=== PATIENT | male | born 1945 | race African-American/Black ===

== ENCOUNTER 2016-10-16 10:01 | Day surgery (SDC) | payer OTHER, BC ==
[2016-10-11 17:08] VITALS: BMI 28.8
[2016-10-16 10:23] LABS: URINE APPEARANCE CLEAR; URINE BILIRUBIN NEGATIVE (NEGATIVE); URINE BLOOD NEGATIVE (NEGATIVE); URINE COLOR LTYELLOW; URINE GLUCOSE (UA) NEGATIVE (NEGATIVE); URINE KETONE NEGATIVE (NEGATIVE); URINE LEUK ESTERASE NEGATIVE (NEGATIVE); URINE NITRITE NEGATIVE (NEGATIVE); URINE PROTEIN NEGATIVE (NEGATIVE); URINE UROBILINOGEN NEGATIVE E.U./dl (0.2-1.0)
[2016-10-16] MEDS ORDERED: LIDOCAINE HCL 1%, 10 MG/ML (20ML VIAL) ONE ×2 (11:59→12:12)
[2016-10-16] MEDS ORDERED: BUPIVACAINE HCL/PF 0.5% (5MG/ML) 10 ML VIAL ONE ×2 (11:59→12:12)
--- NOTE | 2016-10-16 12:03 | HP ---
Satellite [facility] - Chief Complaint Chief Complaint: right hand and elbow pain - Past Medical History Allergies/Adverse Reactions: Allergies Allergy/AdvReac Type Severity Reaction Status Date / Time No Known Drug Allergies Allergy Verified 10/16/16 11:16 Cardiovascular: Yes: HTN Rheumatology: Yes: Gout - Current Medications Current Medications: Medication Instructions Recorded Celecoxib [Celebrex] 200 mg PO DAILY 04/14/12 Valsartan/Hydrochlorothiazide 1 combo PO DAILY 11/23/13 [Diovan Hct 320-25 mg Tablet] Naproxen Sodium [Aleve] 220 mg PO BID PRN #0 11/24/13 Aspirin [ASA -] 81 mg PO DAILY 05/23/16 Cyanocobalamin [Vitamin B12 -] 1,000 mcg PO DAILY 05/23/16 Febuxostat [Uloric -] 40 mg PO DAILY 05/23/16 Gabapentin [Neurontin] 300 mg PO QID 05/23/16 Hydromorphone [Dilaudid -] 2 mg PO TID 05/23/16 Iron 28 mg PO DAILY 05/23/16 Methotrexate [Mexate -] 5 mg PO ASDIR 05/23/16 Metoprolol Succinate [Toprol XL -] 50 mg PO DAILY 05/23/16 Montelukast Na [Singulair -] 10 mg PO HS 05/23/16 Omeprazole [Prilosec] 40 mg PO DAILY 05/23/16 Oxycodone HCl [Oxycodone HCl ER] 10 mg PO BID 05/23/16 Zolpidem Tartrate [Ambien] 10 mg PO HS 05/23/16 Satellite Physical Exam - Physical Examination Vital Signs: Vital Signs Period Temp Pulse Resp BP Sys/Dyson Pulse Ox Last 24 Hr 97.5 F 84 20 113/65 98 General Appearance: Well Nourished, Well Developed, Alert & Oriented x3 ENT: Clear Lung: Normal air movement Heart: Regular rate & rhythm Extremities: Other (right hand/elbow- +tinels, phalens EMG + cts, cubital tunnel syndrome) Neurological: Intact, Alert, Oriented Satellite Impression/Plan - Impression/Plan Impression: right cts, cubital tunnel syndrome Operative Procedure: right ctr, ulna nerve transposition Date to be Performed: 10/16/16
[2016-10-16] MEDS ORDERED: MIDAZOLAM HCL 2 MG/2 ML SINGLE DOSE VIAL ONE (13:03)
[2016-10-16] MEDS ORDERED: PROPOFOL 20 ML ONE (13:34)
[2016-10-16] MEDS ORDERED: ceFAZolin SODIUM 1 GM VIAL IVPB ONE (13:35)
[2016-10-16] MEDS ORDERED: ceFAZolin SODIUM 1 GM VIAL ONE (13:39)
[2016-10-16] MEDS ORDERED: LIDOCAINE HCL 1%, 10 MG/ML (20ML VIAL) IJ ONE (13:53)
[2016-10-16] MEDS ORDERED: BUPIVACAINE HCL/PF 0.5% (5MG/ML) 10 ML VIAL IJ ONE (13:53)
[2016-10-16] MEDS ORDERED: ePHEDrine SULFATE 50 MG/1 ML AMPULE ONE (13:55)
[2016-10-16] MEDS ORDERED: DEXAMETHASONE SOD PHOSPHATE 4 MG/1 ML VIAL ONE (14:18)
[2016-10-16] MEDS ORDERED: KETOROLAC TROMETHAMINE 30 MG/1 ML VIAL ONE (14:18)
--- NOTE | 2016-10-16 15:00 | OP ---
Operative Note - Note: Operative Date: 10/16/16 Pre-Operative Diagnosis: right Cubital tunnel syndrome and CTS Operation: right subcutaneous ulnar nerve transposition, CTR, tenosynovectomy Post-Operative Diagnosis: Same as Pre-op Surgeon: Juan Manuel Carver Anesthesiologist/COTA: Paris Richards Anesthesia: General, Local Estimated Blood Loss (mls): 0 Blood Volume Replaced (mls): 0 Fluid Volume Replaced (mls): 1,000 Operative Report Dictated: Yes
[2016-10-16] MEDS ORDERED: oxyCODONE HCL 5 MG TABLET PO PRN (15:59)
[2016-10-16] MEDS ORDERED: ONDANSETRON 4 MG/2 ML VIAL IVPUSH PRN (15:59)
[2016-10-16] MEDS ORDERED: LACTATED RINGERS SOLUTION 1,000 ML IV SCH (16:00)
[2016-10-16 16:41] VITALS: TEMP 97.9
[2016-10-16 17:36] VITALS: BP 110/60; PULSE 85
--- NOTE | 2016-10-31 21:29 | SPEC ---
DATE OF OPERATION: 10/16/2016 PROCEDURE: Right subcutaneous ulnar nerve transposition. PREOPERATIVE DIAGNOSIS: The patient is a 71-year-old male with a preoperative diagnosis of right cubital tunnel syndrome PROCEDURE: After understanding the potential risks, complications, alternatives, benefits to surgery, risks of nonsurgical treatment, patient elected to undergo the procedure and understands that we are moving the nerve. He may not get complete relief of his symptoms. He may have a continuation of the numbness/tingling, pins and needles sensation. He understands this and other potential risks, which were discussed and has elected to go forward with surgery. The patient was brought to the operating room and peripheral IV placed. IV sedation given, 1 g of IV Ancef was given. MAC anesthesia was induced. He was placed into the supine position. The right upper extremity was prepped and draped in a sterile fashion. Elevated and exsanguinated with an Esmarch bandage, and tourniquet inflated to 250 mmHg. A curvilinear incision was marked out and made over the medial epicondyle in the area of the cubital tunnel. A subcutaneous incision was made with a No. 15 scalpel blade. Subcutaneous hemostasis was achieved with bipolar cautery. Dissection was done with the Littler scissors down to the cubital tunnel. Great care was taken to preserve all crossing neurovascular structures. I was able to identify the ulnar nerve in a more proximal position. Circumferential dissection was done, and a 0.5 inch Dee drain with irrigation for lubrication was passed around and for identification and retraction. Army-Stephenson retractors were used for better visualization proximally. The ulnar nerve was released, going more proximally, including the medial head of the triceps. I then used my index finger to do blunt dissection in a circumferential fashion around the ulnar nerve until there were no points of compression. The medial intramuscular septum was directly visualized and a portion of it cut, as not to be a point of compression. Next, our attention turned to the cubital tunnel. With very careful dissection, the cubital tunnel was opened up, the ulnar nerve protected. All small branches protected. The release continued through Carvajal ligament through the two heads of the flexor carpi ulnaris (FCU) and into the muscle itself. Again, I used my index finger for gentle circumferential dissection around the ulnar nerve, but again, trying to preserve all neurovascular branches. I then was able to transpose the ulnar nerve in an anterior direction anterior to the axial rotation of the medial epicondyle. I was able to move quite easily through an elbow flexion and extension of range of motion, and there were no points of compression. Therefore, the area was copiously irrigated and washed out. I then tacked down the subcutaneous flap including the adipose tissue to the medial epicondyle and to the adipose tissue on the other side of the incision with 2-0 Vicryl sutures. It held the ulnar nerve in its new position, and the ulnar nerve was not bound down in any location. Closure was done with 4-0 undyed Vicryl in the deep dermal layer, and final skin reapproximation was done with a running subcuticular 4-0 Biosyn stitch. The area was then washed and dried, covered with Steri-Strips, 4x4 gauze, Webril, and an ORTHO-GLASS posterior fiberglass splint was applied, wrapped with a Kade and Polo bandages. Then the tourniquet was taken down after number of minutes. Genesis [id number]
== END 2016-10-16 17:30 | disposition home or self-care (01) ==
LOC: JASU-SURG 10:01
PROVIDERS: ATTEND Orthopaedic Surgery
PROC: 0LB50ZZ Excision of Right Lower Arm and Wrist Tendon, Open Approach (ICD-10-PCS; 2016-10-16)
PROC: 01S40ZZ Reposition Ulnar Nerve, Open Approach (ICD-10-PCS; principal; 2016-10-16 12:00)
PROC: 01N50ZZ Release Median Nerve, Open Approach (ICD-10-PCS; 2016-10-16 12:00)
DX: G56.01 Carpal tunnel syndrome, right upper limb (principal); G56.21 Lesion of ulnar nerve, right upper limb; M65.831 Other synovitis and tenosynovitis, right forearm
CPT/HCPCS: 81003; 94760

== ENCOUNTER 2016-11-06 05:00 | Day surgery (SDC) | payer OTHER, BC ==
[2016-11-05 10:54] VITALS: BMI 28.8
[2016-11-06] MEDS ORDERED: methylPREDNISolone ACET (DEPO) 80 MG/1 ML VIAL ONE (07:25)
[2016-11-06] MEDS ORDERED: BUPIVACAINE HCL/PF 0.25% (2.5MG/ML) 10 ML VIAL ONE (07:25)
[2016-11-06] MEDS ORDERED: PROPOFOL 20 ML ONE ×2 (07:27→08:05)
[2016-11-06] MEDS ORDERED: SUCCINYLCHOLINE CHLORIDE 200 MG/10 ML VIAL ONE (07:27)
[2016-11-06] MEDS ORDERED: LIDOCAINE HCL/PF 2% SDV 5ML VIAL ONE (07:28)
[2016-11-06] MEDS ORDERED: LIDOCAINE HCL 1%, 10 MG/ML (50 mL VIAL) IJ ONE ×2 (08:00→08:06)
[2016-11-06] MEDS ORDERED: BUPIVACAINE HCL/PF 0.25% (2.5MG/ML) 10 ML VIAL IJ ONE ×2 (08:01→08:10)
[2016-11-06] MEDS ORDERED: methylPREDNISolone ACET (DEPO) 80 MG/1 ML VIAL IJ ONE ×2 (08:01→08:10)
[2016-11-06 10:19] VITALS: BP 115/61; PULSE 74; TEMP 97.4
--- NOTE | 2016-11-06 17:13 | OP ---
DATE OF OPERATION: 11/06/2016 PREOPERATIVE DIAGNOSIS: 1. Back pain, lumbar radiculopathy. 2. History of multilevel lumbar fusion. 3. History of cervical fusion. 4. Recent right upper extremity surgical procedure. POSTOPERATIVE DIAGNOSIS: 1. Back pain, lumbar radiculopathy. 2. History of multilevel lumbar fusion. 3. History of cervical fusion. 4. Recent right upper extremity surgical procedure. ATTENDING SURGEON: Hima Wharton M.D. PROCEDURE: 1. L5-S1 epidural steroid injection. 2. Intraoperative fluoroscopy. ANESTHESIA: Local with IV sedation. ANESTHESIOLOGIST: Paris Richards CRNA INDICATION: The patient is a 71-year-old male with back pain, lumbar radiculopathy, has previously undergone multiple lumbar surgeries and now complains of persistent lower back pain, lumbar radiculopathy. Has developed intractable symptoms of bilateral legs and is here for the first epidural steroid injection of the year. The risks of the procedure include but not limited to bleeding, infection, spinal headache, and neurological injury. The patient understands indication for the procedure, the procedure in detail, and the risks and benefits and alternatives to the treatment and his lumbar condition, and wished to proceed. No guarantee is given for favorable outcome. PROCEDURE IN DETAIL: The patient was taken to then operating room. He was placed in a prone position with the pillow under his hips, arms were placed on the side, taking care not to disrupt his recent right elbow incision. Lumbar region cleaned with alcohol and prepped with Betadine. A skin wheal was raised with 5 mL 1% Xylocaine and 20 degree spinal needle was inserted under AP and lateral fluoroscopic guidance, from left sided approach to the L5-S1. Needle moved cephalad from the top of the sacrum. Loss of resistance technique was utilized, and there was no CSF or blood backflow. Fairly dense fibrosis was encountered. 80 mg of Depo-Medrol and 1 mL of 0.25% Marcaine was injected. The needle with withdrawn, pressure was applied. The patient tolerated the procedure well and was returned back into the supine position, once again taking care to logroll him without disturbing his right elbow incision. Patient was moving bilateral lower extremities as he did preoperatively. Normal timeout procedure was followed. HIMA WHARTON M.D. ERNESTINE/[id number] MTDD
== END 2016-11-06 09:40 | disposition home or self-care (01) ==
LOC: JASU-SURG 05:00
PROVIDERS: ATTEND Neurological Surgery
PROC: 3E0S3BZ Introduction of Anesthetic Agent into Epidural Space, Percutaneous Approach (ICD-10-PCS; 2016-11-06)
PROC: 3E0S33Z Introduction of Anti-inflammatory into Epidural Space, Percutaneous Approach (ICD-10-PCS; principal; 2016-11-06 08:00)
DX: M54.16 Radiculopathy, lumbar region (principal); Z98.1 Arthrodesis status; M54.89 Other dorsalgia
CPT/HCPCS: 76000-TC

== ENCOUNTER 2017-03-08 08:39 | Emergency (ER) | payer OTHER, BC ==
[2017-03-08 08:58] VITALS: TEMP 98; BMI 28.2
--- NOTE | 2017-03-08 09:21 | PDOC ---
History of Present Illness - General Chief Complaint: Pain Stated Complaint: FOOT PAIN Time Seen by Provider: 03/08/17 08:55 History Source: Patient, Family () Exam Limitations: No Limitations - History of Present Illness Initial Comments: 03/08/17 09:20 Patient is a 72-year-old male history of hypertension, peripheral neuropathy, right ankle deformity with surgical repair 6 months prior, chronic pain. Patient presents via ambulance for evaluation of right ankle pain which is "severe" , 10 out of 10. Patient is crying. Ankle is visibly deformed at bedside states that patient is being followed by Dr. Buenrostro at [facility] repair was performed 6 months ago however ankle has still been deformed within the last 24 hours patient with severe pain has been taking morphine and Dilaudid, pain is worse. Past Medical History:See above Allergies: No known allergies Medications: see medication list Family History: Non-contributory Social History: Denies smoking, alcohol use, or IVDU Review of Systems GENERAL/CONSTITUTIONAL: No fever or chills. No weakness. No weight change. HEAD, EYES, EARS, NOSE AND THROAT: No change in vision. No ear pain or discharge. No sore throat. CARDIOVASCULAR: No chest pain or shortness of breath. RESPIRATORY: No cough, wheezing, or hemoptysis. GASTROINTESTINAL: No nausea, vomiting, diarrhea or constipation. No rectal bleeding. GENITOURINARY: No dysuria, frequency, or change in urination. MUSCULOSKELETAL: Right ankle pain with visible deformity, patient reports chronic back pain. SKIN AND BREASTS: No rash or easy bruising. No bruising, no erythema, edema noted to right ankle medial and laterally NEUROLOGIC: No headache, vertigo, loss of consciousness, or loss of sensation. PSYCHIATRIC: Anxious Physical Exam: GENERAL: The patient is awake, alert, and fully oriented, in no acute distress. EYES: Pupils equal, round and reactive to light, extraocular movements intact, sclera anicteric, conjunctiva clear. ENT: Ears normal, nares patent, oropharynx clear without exudates. Moist mucous membranes. No uvula deviation NECK: Normal range of motion, supple without lymphadenopathy, JVD, or masses. LUNGS: Breath sounds equal, clear to auscultation bilaterally. No wheezes, and no crackles. HEART: Regular rate and rhythm, normal S1 and S2 without murmur, rub or gallop. ABDOMEN: Soft, nontender, normoactive bowel sounds. No guarding, no rebound. No masses. No bruising or abrasions MUSCULOSKELETAL: Normal range of motion, no edema. No clubbing or cyanosis. No cords, erythema, or tenderness. Right ankle edema, no erythema, deformity medially and laterally. NEUROLOGICAL: Cranial nerves II through XII grossly intact. Normal speech, normal gait. SKIN: Warm, Dry, normal turgor, no rashes or lesions noted. Edema with deformity to generalized ankle, no bruising, no erythema. No warmth. 03/08/17 09:22 Past History - Past Medical History Allergies/Adverse Reactions: Allergies Allergy/AdvReac Type Severity Reaction Status Date / Time No Known Drug Allergies Allergy Verified 03/08/17 08:49 Home Medications: Ambulatory Orders Celecoxib [Celebrex] 200 mg PO DAILY 04/14/12 Valsartan/Hydrochlorothiazide [Diovan Hct 320-25 mg Tablet] 1 combo PO DAILY 08/26 Naproxen Sodium [Aleve] 220 mg PO BID PRN #0 11/24/13 Aspirin [ASA -] 81 mg PO DAILY 05/23/16 Cyanocobalamin [Vitamin B12 -] 1,000 mcg PO DAILY 05/23/16 Febuxostat [Uloric -] 40 mg PO DAILY 05/23/16 Gabapentin [Neurontin] 300 mg PO QID 05/23/16 Methotrexate [Mexate -] 5 mg PO ASDIR 05/23/16 Metoprolol Succinate [Toprol XL -] 50 mg PO DAILY 05/23/16 Montelukast Na [Singulair -] 10 mg PO HS 05/23/16 Omeprazole [Prilosec] 40 mg PO DAILY 05/23/16 Zolpidem Tartrate [Ambien] 10 mg PO HS 05/23/16 Hydromorphone [Dilaudid -] 4 mg PO TID #15 cap MDD 3 03/08/17 Morphine Sulfate 15 mg PO BID 03/08/17 Anemia: No Asthma: No Cancer: Yes (HX OF PROSTATE) Cardiac Disorders: No CVA: No COPD: No CHF: No Dementia: No Diabetes: No GI Disorders: No Disorders: No HTN: Yes Hypercholesterolemia: Yes Liver Disease: No Seizures: No Thyroid Disease: No - Surgical History Abdominal Surgery: No Appendectomy: No Cardiac Surgery: No Cholecystectomy: No Lung Surgery: No Neurologic Surgery: No Orthopedic Surgery: Yes (ANKLE SX, 3 BACK , CERVICAL SPINE X3) - Psycho/Social/Smoking Cessation Hx Suicidal Ideation: No Smoking History: Never smoked Have you smoked in the past 12 months: No Information on smoking cessation initiated: No Hx Alcohol Use: Yes (4 beers a day) Drug/Substance Use Hx: No Substance Use Type: None Hx Substance Use Treatment: No *Physical Exam - Vital Signs Last Vital Signs Temp Pulse Resp BP Pulse Ox 98 F 72 18 126/76 99 03/08/17 08:47 03/08/17 08:47 03/08/17 08:47 03/08/17 08:47 03/08/17 08:47 ED Treatment Course - LABORATORY CBC & Chemistry Diagram: 03/08/17 10:28 03/08/17 10:28 - RADIOLOGY Radiology Studies Ordered: Category Date Time Status ANKLE & FOOT-RIGHT* [RAD] Stat Radiology 03/08/17 09:17 Ordered Medical Decision Making - Medical Decision Making 03/08/17 09:27 A/P: Patient with chronic right ankle deformity, pain worsened in last 24 hours. Not controlled with Dilaudid or morphine. Patient states pain is uncontrolled. Crying. Agitated. Patient unable to bear weight. Patient sent to main emergency department for pain management. By mouth medication unable to resolve symptoms. Patient sent to x-ray for evaluation prior to transfer. Report given to Genesis and Valerie LOVE. *DC/Admit/Observation/Transfer Diagnosis at time of Disposition: Ankle and foot joint derangement - Prescriptions Prescriptions: Hydromorphone [Dilaudid -] 4 mg PO TID #15 cap MDD 3 - Referrals Referrals: Leonard Lester MD [Primary Care Provider] - - Patient Instructions Printed Discharge Instructions: DI for Ankle Pain Additional Instructions: follow up with Dr Buenrostro, call to schedule at 9:30 AM on friday , 03/12/17. you should bring the disc with you to your apppointment. return for any fever chills. or any concerns. take dilaudid 4 mg every 8 hours as needed for pain. you can also take motrin 400 mg every 8 hours as needed for pain.
[2017-03-08] MEDS ORDERED: HYDROmorphone HCL CARPU-JECT 1 MG/1 ML DISP.SYRIN IVPUSH ONE (10:09)
[2017-03-08] MEDS ORDERED: HYDROmorphone HCL CARPU-JECT 1 MG/1 ML DISP.SYRIN ONE (10:22)
[2017-03-08 10:50] LABS: BASOPHIL 0.4 % (0-2.0); EOSINOPHIL 5.3 % (0-4.5); MCH 34.1 pg (25.7-33.7); MCHC 33.7 g/dl (32.0-35.9); MEAN CELL VOLUME 101.1 fl (80-96); MEAN PLT VOLUME 6.8 fl (7.5-11.1); NEUTROPHILS 65.2 % (42.8-82.8); PLATELET COUNT 385 K/MM3 (134-434); RDW 14.5 % (11.9-15.9); WHITE BLOOD COUNT 10.2 K/mm3 (4.0-10.0)
[2017-03-08 11:09] LABS: ALBUMIN 3.9 g/dl (3.4-5.0); ANION GAP 10 (8-16); CO2 26 mmol/L (21-32); COCKROFT - GAULT 94.2; GLUCOSE,RANDOM 87 mg/dL (74-106); SGOT/AST 29 U/L (15-37); SGPT/ALT 26 U/L (12-78)
[2017-03-08 11:11] LABS: ALK PHOS 95 U/L (45-117); BILIRUBIN,TOTAL 0.9 mg/dL (0.2-1.0); TOT PROT 6.2 g/dl (6.4-8.2)
--- NOTE | 2017-03-08 12:01 | PDOC ---
*Physical Exam - Vital Signs Last Vital Signs Temp Pulse Resp BP Pulse Ox 98 F 72 18 126/76 99 03/08/17 08:47 03/08/17 08:47 03/08/17 08:47 03/08/17 08:47 03/08/17 08:47 - Physical Exam Comments: 03/08/17 12:01 The patient is a 72 year old male with a significant past medical history of chronic back pain followed by pain management, and right ankle surgery for chronic right ankle deformity (6 months ago), presenting to the Emergency Department with right ankle swelling and pain. The patient reports that he has surgery on his right ankle by Dr. Buenrostro. He admits that he is prescribed Morphine by his pain management doctor for his chronic back pain as well as ankle pain. He reports that the swelling and pain in the ankle has increased over the past week, to the point where he could not tolerate it and came into the ED. He describes the pain as worst in the ankle and radiating up to the mid calf. He admits the swelling to the right leg is worse than usual. He ambulates with a walking boot. His next follow up appointment with his surgeon is in two weeks. The patient denies fever, or chills. Denies history of blood clot. Denies recent injury. Patient denies chest pain, palpitations, or shortness of breath. Bone and joint doctor: Dr. Castillo at [facility] Orthopedic surgeon: Dr. Buenrostro Pain management: Dr. Pereira CONSTITUTIONAL: Absent: fever, chills, diaphoresis, generalized weakness, malaise, loss of appetite HEENT: Absent: rhinorrhea, nasal congestion, throat pain, throat swelling, difficulty swallowing, mouth swelling, ear pain, eye pain, visual Changes CARDIOVASCULAR: Absent: chest pain, syncope, palpitations, irregular heart rate, lightheadedness , peripheral edema RESPIRATORY: Absent: cough, shortness of breath, dyspnea with exertion, orthopnea, wheezing, stridor, hemoptysis GASTROINTESTINAL: Absent: abdominal pain, abdominal distension, nausea, vomiting, diarrhea, constipation, melena, hematochezia GENITOURINARY: Absent: dysuria, frequency, urgency, hesitancy, hematuria, flank pain, genital pain MUSCULOSKELETAL: Present: + right ankle swelling, + right ankle pain, + back pain (chronic) Absent: myalgia SKIN: Absent: rash, itching, pallor HEMATOLOGIC/IMMUNOLOGIC: Absent: easy bleeding, easy bruising, lymphadenopathy, frequent infections ENDOCRINE: Absent: unexplained weight gain, unexplained weight loss, heat intolerance, cold intolerance NEUROLOGIC: Absent: headache, focal weakness or paresthesias, dizziness, unsteady gait, seizure, mental status changes, bladder or bowel incontinence PSYCHIATRIC: Absent: anxiety, depression, suicidal or homicidal ideation, hallucinations. GENERAL: Well developed, well nourished. Awake and alert. In no acute distress. HEENT: Normocephalic, atraumatic. PERRLA, EOMI. No conjunctival pallor. Sclera are non- icteric. Moist mucous membranes. Oropharynx is clear. NECK: Supple. Full ROM. No JVD. Carotid pulses 2+ and symmetric, without bruits. No thyromegaly. No lymphadenopathy. CARDIOVASCULAR: Regular rate and rhythm. No murmurs, rubs, or gallops. Distal pulses are 2+ and symmetric. PULMONARY: No evidence of respiratory distress. Lungs clear to auscultation bilaterally. No wheezing, rales or rhonchi. ABDOMINAL: Soft. Non-tender. Non-distended. No rebound or guarding. No organomegaly. Normoactive bowel sounds. MUSCULOSKELETAL Normal range of motion at upper extremities and left lower extremity. EXTREMITIES: Right ankle swelling noted. Decreased range of motion. 2+ dp and pt pulses. Knee and hip nontender. No cyanosis. No clubbing. No calf tenderness. SKIN: Warm and dry. Normal capillary refill. No rashes. No jaundice. NEUROLOGICAL: Alert, awake, appropriate. Cranial nerves 2-12 intact. No deficits to light touch and temperature in face, upper extremities and lower extremities. No motor deficits in the in face, upper extremities and lower extremities. Normoreflexic in the upper and lower extremities. Normal speech. PSYCHIATRIC: Cooperative. Good eye contact. Appropriate mood and affect. <Charmaine Harris - Last Filed: 03/08/17 12:55> - Vital Signs Last Vital Signs Temp Pulse Resp BP Pulse Ox 98 F 72 18 126/76 99 03/08/17 08:47 03/08/17 08:47 03/08/17 08:47 03/08/17 08:47 03/08/17 08:47 <Cristela Deleon - Last Filed: 03/08/17 13:21> ED Treatment Course - LABORATORY CBC & Chemistry Diagram: 03/08/17 10:28 03/08/17 10:28 - ADDITIONAL ORDERS Additional order review: Laboratory Results 03/08/17 10:28 Sodium 138 Potassium 4.5 Chloride 102 Carbon Dioxide 26 Anion Gap 10 BUN 24 H Creatinine 1.0 D Creat Clearance w eGFR > 60 Random Glucose 87 Calcium 10.0 D Total Bilirubin 0.9 D AST 29 D ALT 26 Alkaline Phosphatase 95 D C-Reactive Protein 1.0 H Total Protein 6.2 L D Albumin 3.9 D 03/08/17 10:28 RBC 3.61 L MCV 101.1 H MCHC 33.7 RDW 14.5 MPV 6.8 L Neutrophils % 65.2 Lymphocytes % 19.2 D Monocytes % 9.9 Eosinophils % 5.3 H D Basophils % 0.4 - RADIOLOGY Radiograph Interpretation: 03/08/17 12:55 Ankle XRay As reviewed by Dr. Mando Jimenez IMPRESSION: Marked deformity ankle joint. 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 - Medications Given in the ED: ED Medications Discontinued Medications Generic Name Dose Route Start Last Admin Trade Name Freq PRN Reason Stop Dose Admin Hydromorphone HCl 1 mg 03/08/17 10:09 03/08/17 10:32 Dilaudid Injection - IVPUSH 03/08/17 10:10 1 mg ONCE ONE Administration <Charmaine Harris - Last Filed: 03/08/17 12:55> - LABORATORY CBC & Chemistry Diagram: 03/08/17 10:28 03/08/17 10:28 - ADDITIONAL ORDERS Additional order review: Laboratory Results 03/08/17 10:28 Sodium 138 Potassium 4.5 Chloride 102 Carbon Dioxide 26 Anion Gap 10 BUN 24 H Creatinine 1.0 D Creat Clearance w eGFR > 60 Random Glucose 87 Calcium 10.0 D Total Bilirubin 0.9 D AST 29 D ALT 26 Alkaline Phosphatase 95 D C-Reactive Protein 1.0 H Total Protein 6.2 L D Albumin 3.9 D 03/08/17 10:28 RBC 3.61 L MCV 101.1 H MCHC 33.7 RDW 14.5 MPV 6.8 L Neutrophils % 65.2 Lymphocytes % 19.2 D Monocytes % 9.9 Eosinophils % 5.3 H D Basophils % 0.4 - RADIOLOGY Radiology Studies Ordered: Category Date Time Status DUPLEX VASCUL US-1 LEG [US] Stat Ultrasound 03/08/17 10:12 Ordered - Medications Given in the ED: ED Medications Discontinued Medications Generic Name Dose Route Start Last Admin Trade Name Sheri PRN Reason Stop Dose Admin Hydromorphone HCl 1 mg 03/08/17 10:09 03/08/17 10:32 Dilaudid Injection - IVPUSH 03/08/17 10:10 1 mg ONCE ONE Administration <Cristela Deleon - Last Filed: 03/08/17 13:21> Medical Decision Making - Medical Decision Making 03/08/17 12:17 Dr. Buenrostro was called at his office at 10:10. Awaiting call back. Dr. Buenrostro was called at his office at 10:47. Dr. Buenrostro returned call at 12:[address] Deleon about the patient's care. He would like to follow up on Friday. Dr. Pereira was called at her office at 11:19. Awaiting call back. Dr. Pereira was called at her cell at 11:40. Awaiting call back. <Charmaine Harris - Last Filed: 03/08/17 12:55> - Medical Decision Making 03/08/17 12:00 72yo male with h;o chornic right ankle deformity s/p repair surgery 6 mo ago, followe by pain management here with worsening pain right ankle swelling plan: us r/o dvt xray ankl labs r/o infection. 03/08/17 12:21 d/w Dr. Buenrostro. recommend splint and followup with him next week. told to call office 9:30 am following friday. elevate, crutches. and pain control. ESR 30 CRP 1. wbc normal. no fever or chills. joint no erythematous. pt pain controlled with dilaudid. 03/08/17 13:20 pt refuses splint. will wear his boot. encouraged to not bear weight has crutches. elevation to reduce swelling. given referral to our orthopedics for second opinion per request. <Cristela Deleon - Last Filed: 03/08/17 13:21> *DC/Admit/Observation/Transfer - Attestations Scribe Attestion: 03/08/17 12:01 Documentation prepared by Charmaine Harris, acting as biomedical engineering supervisor for Cristela Deleon MD. <Charmaine Harris - Last Filed: 03/08/17 12:55> - Discharge Dispostion Admit: No <Cristela Deleon - Last Filed: 03/08/17 13:21> Diagnosis at time of Disposition: Ankle and foot joint derangement - Prescriptions Prescriptions: Hydromorphone [Dilaudid -] 4 mg PO TID #15 cap MDD 3 - Referrals Referrals: Leonard Lester MD [Primary Care Provider] - - Patient Instructions Printed Discharge Instructions: DI for Ankle Pain Additional Instructions: follow up with Dr Buenrostro, call to schedule at 9:30 AM on friday , 03/12/17. you should bring the disc with you to your apppointment. return for any fever chills. or any concerns. take dilaudid 4 mg every 8 hours as needed for pain. you can also take motrin 400 mg every 8 hours as needed for pain.
[2017-03-08 12:06] LABS: ERYTHROCYTE SEDIMENTATION RATE 30 mm/hr (0-20)
[2017-03-08] MEDS ORDERED: KETOROLAC TROMETHAMINE 30 MG/1 ML VIAL IVPUSH ONE (12:44)
[2017-03-08] MEDS ORDERED: KETOROLAC TROMETHAMINE 30 MG/1 ML VIAL ONE (12:54)
[2017-03-08 13:22] VITALS: BP 129/79; PULSE 67
== END 2017-03-08 14:01 | disposition home or self-care (01) ==
LOC: JER 08:39 → JERFT 08:39 → JER 14:01
PROC: 3E033NZ Introduction of Analgesics, Hypnotics, Sedatives into Peripheral Vein, Percutaneous Approach (ICD-10-PCS; principal; 2017-03-08)
PROC: 3E0333Z Introduction of Anti-inflammatory into Peripheral Vein, Percutaneous Approach (ICD-10-PCS; 2017-03-08)
DX: M24.871 Other specific joint derangements of right ankle, not elsewhere classified (principal); I10 Essential (primary) hypertension; G62.9 Polyneuropathy, unspecified
CPT/HCPCS: 36415; 73610-TC-RT; 73630-TC-RT; 80053; 85025; 85651; 86140; 87040; 93971-TC; 96374; 96375; 99282-25

== ENCOUNTER 2017-04-03 13:47 | Inpatient (IN) | payer OTHER, BC ==
[~2017-04-03 13:47] MED LIST: NALOXONE HCL 0.4 MG/ML VIAL IVPUSH ONE
--- NOTE | 2017-04-03 14:02 | PDOC ---
History of Present Illness - General History Source: Patient Exam Limitations: Other - History of Present Illness Initial Comments: 04/03/17 14:14 The patient is a 72 year old male with a significant past medical history of hypertension, peripheral neuropathy, chronic right ankle deformity (multiple surgeries), and chronic back pain, brought by ambulance from pain management presenting to the Emergency Department found unresponsive at pain management. As per EMS, the patient was found unresponsive and diaphoretic at pain management, when 1.5mg of Narcan was administered. Patient was seen on arrival to ED, and was found hypertensive and temp of 95.9 rectally. The patient was confused, coughing, and shaking. History limited due to patients current symptoms. Social Hx: As per past records, no history of drug abuse. At pain management for chronic right ankle deformity. Surgical Hx: multiple surgeries to right ankle <Charmaine Harris - Last Filed: 04/03/17 17:35> <Khai Garcia - Last Filed: 04/03/17 17:42> - General Chief Complaint: Overdose Stated Complaint: UNRESPONSIVE Time Seen by Provider: 04/03/17 14:01 Past History <Charmaine Harris - Last Filed: 04/03/17 17:35> - Past Medical History Anemia: No Asthma: No Cancer: Yes (HX OF PROSTATE) Cardiac Disorders: No CVA: No COPD: No CHF: No Dementia: No Diabetes: No GI Disorders: No Disorders: No HTN: Yes Hypercholesterolemia: Yes Liver Disease: No Seizures: No Thyroid Disease: No - Surgical History Abdominal Surgery: No Appendectomy: No Cardiac Surgery: No Cholecystectomy: No Lung Surgery: No Neurologic Surgery: No Orthopedic Surgery: Yes (ANKLE SX, 3 BACK , CERVICAL SPINE X3) - Psycho/Social/Smoking Cessation Hx Suicidal Ideation: No Smoking History: Never smoked Have you smoked in the past 12 months: No Hx Alcohol Use: Yes (4 beers a day) Drug/Substance Use Hx: No Substance Use Type: None Hx Substance Use Treatment: No <Khai Garcia - Last Filed: 04/03/17 17:42> - Past Medical History Allergies/Adverse Reactions: Allergies Allergy/AdvReac Type Severity Reaction Status Date / Time No Known Drug Allergies Allergy Verified 04/03/17 13:50 Home Medications: Ambulatory Orders Celecoxib [Celebrex] 200 mg PO DAILY 04/14/12 Valsartan/Hydrochlorothiazide [Diovan Hct 320-25 mg Tablet] 1 combo PO DAILY 08/26 Naproxen Sodium [Aleve] 220 mg PO BID PRN #0 11/24/13 Aspirin [ASA -] 81 mg PO DAILY 05/23/16 Cyanocobalamin [Vitamin B12 -] 1,000 mcg PO DAILY 05/23/16 Febuxostat [Uloric -] 40 mg PO DAILY 05/23/16 Gabapentin [Neurontin] 300 mg PO QID 05/23/16 Methotrexate [Mexate -] 5 mg PO ASDIR 05/23/16 Metoprolol Succinate [Toprol XL -] 50 mg PO DAILY 05/23/16 Montelukast Na [Singulair -] 10 mg PO HS 05/23/16 Omeprazole [Prilosec] 40 mg PO DAILY 05/23/16 Zolpidem Tartrate [Ambien] 10 mg PO HS 05/23/16 Hydromorphone [Dilaudid -] 4 mg PO TID #15 cap MDD 3 03/08/17 Morphine Sulfate 15 mg PO BID 03/08/17 Review of Systems - Review of Systems Able to Perform ROS?: No <KimberlyCharmaine - Last Filed: 04/03/17 17:35> *Physical Exam - Vital Signs Last Vital Signs Temp Pulse Resp BP Pulse Ox 75 25 H 108/77 100 04/03/17 13:50 04/03/17 13:50 04/03/17 13:50 04/03/17 13:50 - Physical Exam Comments: 04/03/17 15:48 GENERAL: Rousable to loud voice and confused, oriented to place and person but not situation. HEAD: No signs of trauma EYES: PERRLA, EOMI, sclera anicteric, conjunctiva clear ENT: Auricles normal inspection, hearing grossly normal, nares patent, oropharynx clear without exudates. Moist mucosa NECK: Normal ROM, supple, no lymphadenopathy, JVD, or masses LUNGS: Noisy chest. Breath sounds equal, clear to auscultation bilaterally. No wheezes, and no crackles HEART: Regular rate and rhythm, normal S1 and S2, no murmurs, rubs or gallops ABDOMEN: Soft, nontender, normoactive bowel sounds. No guarding, no rebound. No masses EXTREMITIES: Deformity to right leg, in brace. Normal range of motion of other extremities, no edema. No clubbing or cyanosis. No cords, erythema NEUROLOGICAL: Cranial nerves II through XII grossly intact. SKIN: Warm, Dry, normal turgor, no rashes or lesions noted. <Charmaine Harris - Last Filed: 04/03/17 17:35> Heart Score/ECG Review #1 ECG reviewed & interpreted by me at: 14:45 (EKG reviewed by Dr. Garcia. IMPRESSION: Sinus rhythm with 1st degree AV block.) <Charmaine Harris - Last Filed: 04/03/17 17:35> ED Treatment Course - LABORATORY CBC & Chemistry Diagram: 04/03/17 14:21 04/03/17 14:30 - RADIOLOGY Radiograph Interpretation: 04/03/17 17:13 Chest XRay As reviewed by Dr. Mando De La Rosa IMPRESSION: Limited exam showing no acute intrathoracic abnormality. Head CT As reviewed by Dr. Cecil Harvey IMPRESSION: [id number] volume loss and chronic microvascular ischemic changes without evidence of acute intracranial pathology. Correlate clinically. Correlation with MRI would be helpful. Mild chronic sinusitis <Charmaine Harris - Last Filed: 04/03/17 17:35> - LABORATORY CBC & Chemistry Diagram: 04/03/17 14:21 04/03/17 14:30 <Khai Garcia - Last Filed: 04/03/17 17:42> Medical Decision Making - Critical Care Time Total Critical Care Time (minutes): 30 (r/o overdose, possible sepsis) Critical Care Statement: The care of this patient involved high complexity decision making to prevent further life threatening deterioration of the patient 's condition and/or to evalute & treat vital organ system(s) failure or risk of failure. - Medical Decision Making 04/03/17 14:15 Patient was seen on arrival, suspected overdose. Narcan administered, and overdose ruled out. Possible sepsis. 04/03/17 17:16 Dr. Kevin was called at her office at 5:15. Awaiting call back. 04/03/17 17:35 Dr. Kevin returned call at 5:[address] Garcia about the patient's care. <Charmaine Harris - Last Filed: 04/03/17 17:35> *DC/Admit/Observation/Transfer - Attestations Scribe Attestion: 04/03/17 14:16 Documentation prepared by Charmaine Harris, acting as remote medical coder for Khai Garcia DO. <Charmaine Harris - Last Filed: 04/03/17 17:35> - Discharge Dispostion Admit: Yes - Attestations Physician Attestion: 04/03/17 14:02 I, Dr. Khai Garcia, attest that this document has been prepared under my direction and personally reviewed by me in its entirety. I further attest, that it accurately reflects all work, treatment, procedures and medical decision -making performed by me. <Khai Garcia - Last Filed: 04/03/17 17:42> Diagnosis at time of Disposition: Sepsis Qualifiers: Sepsis type: sepsis due to unspecified organism Qualified Code(s): A41.9 - Sepsis, unspecified organism Altered mental status Qualifiers: Altered mental status type: transient alteration of awareness Qualified Code(s) : R40.4 - Transient alteration of awareness Urinary tract infection Qualifiers: Urinary tract infection type: site unspecified Hematuria presence: with hematuria Qualified Code(s): N39.0 - Urinary tract infection, site not specified ; R31.9 - Hematuria, unspecified - Discharge Dispostion Condition at time of disposition: Improved
[2017-04-03] MEDS ORDERED: NALOXONE HCL 0.4 MG/ML VIAL ONE (14:07)
[2017-04-03] MEDS ORDERED: SODIUM CHLORIDE 0.9% 1000 ML INFUS.BAG IV STA (14:11)
[2017-04-03] MEDS ORDERED: VANCOMYCIN 1 GRAM (PRE-DOCKED) 1,000 MG/250 ML BAG IVPB ONE (14:13)
[2017-04-03 14:33] LABS: ARTERIAL BLD GAS O2 SATURATION 97.1 % (90-98.9); ARTERIAL BLOOD GAS BASE EXCESS -3.6 meq/l (-2-2); ARTERIAL BLOOD GAS HCO3 20.9 meq/L (22-26); ARTERIAL BLOOD GAS PO2 89.1 mmHg (70-100); ARTERIAL BLOOD GAS pH 7.36 (7.35-7.45)
[2017-04-03 14:34] LABS: ALLENS TEST POSITIVE; ART PUNCT SITE LEFT RADIAL; LPM/O2% N; METHEMOGLOBIN 0.4 % (0.4-1.5); PT. ON O2? NO; TYPE OF O2 R/A
[2017-04-03] MEDS ORDERED: VANCOMYCIN 1 GRAM (PRE-DOCKED) 250 ML IVPB ONE (14:37)
[2017-04-03 14:42] LABS: URINE APPEARANCE SLCLOUDY; URINE BILIRUBIN NEGATIVE (NEGATIVE); URINE COLOR AMBER; URINE GLUCOSE (UA) NEGATIVE (NEGATIVE); URINE KETONE NEGATIVE (NEGATIVE); URINE NITRITE NEGATIVE (NEGATIVE); URINE UROBILINOGEN NEGATIVE E.U./dl (0.2-1.0)
[2017-04-03 14:43] LABS: BASOPHIL 0.4 % (0-2.0); EOSINOPHIL 3.4 % (0-4.5); MCH 34.5 pg (25.7-33.7); MCHC 33.5 g/dl (32.0-35.9); NEUTROPHILS 73.4 % (42.8-82.8); PLATELET COUNT 329 K/MM3 (134-434); RDW 13.2 % (11.9-15.9); WHITE BLOOD COUNT 11.5 K/mm3 (4.0-10.0)
[2017-04-03 14:53] LABS: URINE BLOOD 2+ (NEGATIVE); URINE LEUK ESTERASE 3+ (NEGATIVE); URINE PROTEIN 1+ (NEGATIVE)
[2017-04-03 15:04] LABS: INR 1.02 (0.82-1.09); PROTHROMBIN TIME (PATIENT) 11.2 SEC (9.98-11.88)
[2017-04-03 15:06] LABS: ALBUMIN 3.6 g/dl (3.4-5.0); ANION GAP 9 (8-16); CALCIUM 8.8 mg/dL (8.5-10.1); CO2 25 mmol/L (21-32); CREATININE 2.3 mg/dL (0.7-1.3); GLUCOSE,RANDOM 114 mg/dL (74-106); SGOT/AST 22 U/L (15-37); SGPT/ALT 21 U/L (12-78)
[2017-04-03 15:07] LABS: ACTIVATED PTT 28.7 SECONDS (26.9-34.4)
[2017-04-03 15:13] LABS: ALK PHOS 84 U/L (45-117); BILIRUBIN,TOTAL 0.6 mg/dL (0.2-1.0); THYROID STIMULATING HORMONE 3.11 uIU/ml (0.358-3.74); TOT PROT 5.8 g/dl (6.4-8.2); TROPONIN I < 0.02 ng/ml (0.00-0.05)
[2017-04-03] MEDS ORDERED: morphine CARPU-JECT 2 MG/1 ML DISP.SYRIN IVPUSH ONE (15:29)
[2017-04-03] MEDS ORDERED: morphine CARPU-JECT 2 MG/1 ML DISP.SYRIN ONE (15:30)
[2017-04-03 15:41] LABS: GRANULAR CASTS 16 /lpf; URINE HYALINE CAST 90 /lpf; URINE MUCUS FEW; URINE RBC 19 /hpf (0-3); URINE WBC 105 /hpf (3-5)
--- NOTE | 2017-04-03 15:48 | EKG ---
Test Reason : Blood Pressure : / mmHG Vent. Rate : 082 BPM Atrial Rate : 082 BPM P-R Int : 238 ms QRS Dur : 100 ms QT Int : 374 ms P-R-T Axes : 037 -02 001 degrees QTc Int : 436 ms POOR DATA QUALITY, INTERPRETATION MAY BE ADVERSELY AFFECTED SINUS RHYTHM WITH 1ST DEGREE A-V BLOCK OTHERWISE NORMAL ECG WHEN COMPARED WITH ECG OF 20-APR-2007 11:09, [facility] INTERVAL HAS INCREASED Confirmed by STEPH TREJO, JESUS ([id number]) on 04/03/2017 3:47:29 PM Referred By: Confirmed By:JESUS CHOI MD
[2017-04-03] MEDS ORDERED: PIPERACILLIN/TAZOB 3.375 GM/50 ML PRE-DOCKED IV ONE (17:13)
[2017-04-03] MEDS ORDERED: PIPERACILLIN/TAZOB 3.375 GM 50 ML IVPB ONE (17:13)
[2017-04-03 22:11] VITALS: BMI 28.8
[2017-04-03] MEDS: DEXTROSE 5%-0.45% SALINE 1,000 ML IV SCH ×2 (23:14→23:41)
[2017-04-03] MEDS: VALSARTAN 160 MG TABLET (UD) PO SCH (23:41)
[2017-04-03] MEDS: GABAPENTIN 300 MG CAPSULE (FP) PO SCH (23:41)
[2017-04-03] MEDS: METHOCARBAMOL 500 MG TABLET PO SCH (23:42)
[2017-04-03] MEDS: MONTELUKAST NA 10 MG TABLET PO SCH (23:42)
[2017-04-03] MEDS: KETOROLAC TROMETHAMINE 30 MG/1 ML VIAL IVPUSH SCH (23:43)
[2017-04-03] MEDS: ZOLPIDEM TARTRATE 5 MG TABLET PO PRN (23:44)
[2017-04-04] MEDS: KETOROLAC TROMETHAMINE 30 MG/1 ML VIAL IVPUSH SCH ×3 (06:40→21:44)
[2017-04-04 08:03] LABS: BASOPHIL 0.3 % (0-2.0); EOSINOPHIL 4.2 % (0-4.5); MCH 35.1 pg (25.7-33.7); MCHC 34.2 g/dl (32.0-35.9); MEAN CELL VOLUME 102.5 fl (80-96); MEAN PLT VOLUME 7.1 fl (7.5-11.1); NEUTROPHILS 74.1 % (42.8-82.8); PLATELET COUNT 315 K/MM3 (134-434); RDW 13.2 % (11.9-15.9); WHITE BLOOD COUNT 10.9 K/mm3 (4.0-10.0)
[2017-04-04 08:04] LABS: ALBUMIN 3.1 g/dl (3.4-5.0); ANION GAP 9 (8-16); CALCIUM 8.5 mg/dL (8.5-10.1); CO2 25 mmol/L (21-32); GLUCOSE,RANDOM 141 mg/dL (74-106)
[2017-04-04 08:08] LABS: ALK PHOS 76 U/L (45-117); BILIRUBIN,TOTAL 0.6 mg/dL (0.2-1.0); CREATININE 1.2 mg/dL (0.7-1.3); SGOT/AST 15 U/L (15-37); SGPT/ALT 18 U/L (12-78)
[2017-04-04] MEDS ORDERED: CEFTRIAXONE 1 GM in DEXTROSE 5%-WATER - 50 ML IVPB SCH (10:00)
[2017-04-04] MEDS ORDERED: METHOCARBAMOL 750 MG TABLET PO SCH (10:00)
[2017-04-04] MEDS ORDERED: METHOTREXATE 2.5 MG TABLET PO SCH (10:00)
[2017-04-04] MEDS ORDERED: VALSARTAN 160 MG TABLET (UD) PO SCH (10:00)
[2017-04-04] MEDS: FERROUS SO4 325 MG TABLET (FP) PO SCH (10:32)
[2017-04-04] MEDS: ASPIRIN 81 MG CHEWABLE TABLETS PO SCH (10:32)
[2017-04-04] MEDS: cefTRIAXone 1 GM/50 ML BAG (PRE-DOCKED) IVPB SCH (10:33)
[2017-04-04] MEDS: GABAPENTIN 300 MG CAPSULE (FP) PO SCH ×4 (10:33→21:44)
[2017-04-04] MEDS: HEPARIN NA (PORCINE) 5,000 UNITS/ML 1ML VIAL SQ SCH ×2 (10:33→21:44)
[2017-04-04] MEDS: CYANOCOBALAMIN 1,000 MCG TABLET (FP) PO SCH (10:33)
[2017-04-04] MEDS: VALSARTAN 160 MG TABLET (UD) PO SCH ×2 (14:13→21:44)
[2017-04-04] MEDS: METOPROLOL SUCCINATE 50 MG TAB.SR.24H (FP) PO SCH (14:15)
[2017-04-04] MEDS: METHOCARBAMOL 500 MG TABLET PO SCH ×2 (14:16→21:44)
[2017-04-04] MEDS: DEXTROSE 5%-0.45% SALINE 1,000 ML IV SCH (15:00)
--- NOTE | 2017-04-04 17:06 | CONSULT ---
Consult Consult Specialty:: infectious diseases Reason for Consultation:: r/o uti - History of Present Illness Chief Complaint: weakness and dizziness History of Present Illness: 72 year old male with a significant past medical history of hypertension, peripheral neuropathy, chronic right ankle deformity (multiple surgeries), and chronic back pain, brought by ambulance from pain management presenting to the Emergency Department found unresponsive at pain management. As per EMS, the patient was found unresponsive and diaphoretic at pain management, when 1.5mg of Narcan was administered. Patient was seen on arrival to ED, and was found hypertensive and temp of 95.9 rectally. The patient was confused, coughing, and shaking. History limited due to patients current symptoms. the above was the history on admission patient remembered a part of what had happened rest of the history taken from his charts he does say that he has penile prosthesis and some pain now he feels well and says he is improving - History Source History Provided By: Patient Limitations to Obtaining History: No Limitations - Past Medical History Cardio/Vascular: Yes: HTN Rheumatology: Yes: Gout - Alcohol/Substance Use Hx Alcohol Use: Yes (2 BEERS/DAY) History of Substance Use: reports: None - Smoking History Smoking history: Never smoked Have you smoked in the past 12 months: No - Social History ADL: Independent History of Recent Travel: No Home Medications - Allergies Allergies/Adverse Reactions: Allergies Allergy/AdvReac Type Severity Reaction Status Date / Time No Known Drug Allergies Allergy Verified 04/03/17 13:50 - Home Medications Home Medications: Ambulatory Orders Aspirin [Rachelle Chewable Aspirin] 81 mg PO DAILY 04/03/17 Celecoxib [Celebrex] 200 mg PO DAILY 04/03/17 Cyanocobalamin (Vitamin B-12) [B-12] 500 mcg PO DAILY 04/03/17 Febuxostat [Uloric -] 40 mg PO DAILY 04/03/17 Gabapentin 300 mg PO QID 04/03/17 Iron 28 mg PO DAILY 04/03/17 Methocarbamol 750 mg PO BID 04/03/17 Methotrexate Sodium [Methotrexate] 2.5 mg PO DAILY 04/03/17 Metoprolol Succinate [Toprol XL -] 50 mg PO DAILY 04/03/17 Montelukast Na [Singulair -] 10 mg PO HS 04/03/17 Omeprazole Magnesium [Prilosec] 10 mg PO DAILY 04/03/17 Valsartan [Diovan] 160 mg PO BID 04/03/17 Zolpidem Tartrate [Ambien] 10 mg PO DAILY 04/03/17 Amoxicillin/Potassium Clav [Augmentin 875-125 Tablet] 1 each PO BID #20 tablet 04/06/17 Review of Systems - Review of Systems Constitutional: reports: Weakness, Other Eyes: reports: No Symptoms HENT: reports: No Symptoms Neck: reports: No Symptoms Cardiovascular: reports: No Symptoms Respiratory: reports: No Symptoms Gastrointestinal: reports: No Symptoms Genitourinary: reports: No Symptoms Musculoskeletal: reports: No Symptoms Integumentary: reports: No Symptoms Neurological: reports: Change in LOC Endocrine: reports: No Symptoms Hematology/Lymphatic: reports: No Symptoms Psychiatric: reports: No Symptoms Physical Exam Vital Signs: Vital Signs Temperature 97.8 F 04/04/17 14:00 Pulse Rate 77 04/04/17 14:00 Respiratory Rate 20 04/04/17 14:00 Blood Pressure 90/51 04/04/17 14:00 O2 Sat by Pulse Oximetry (%) 96 04/04/17 12:22 Constitutional: Yes: Well Nourished, No Distress, Calm Eyes: Yes: Conjunctiva Clear Cardiovascular: Yes: Regular Rate and Rhythm Respiratory: Yes: Regular, CTA Bilaterally Gastrointestinal: Yes: Normal Bowel Sounds, Soft Musculoskeletal: Yes: WNL Extremities: Yes: WNL Neurological: Yes: Alert, Oriented Psychiatric: Yes: Alert, Oriented Labs: CBC, BMP 04/04/17 06:00 04/04/17 06:00 Imaging - Results Chest X-ray: Report Reviewed, Image Reviewed Cat Scan: Report Reviewed, Image Reviewed Assessment/Plan Problem List - Problems (1) UTI (urinary tract infection) Code(s): N39.0 - URINARY TRACT INFECTION, SITE NOT SPECIFIED Qualifiers: Urinary tract infection type: site unspecified Hematuria presence: with hematuria Qualified Code(s): N39.0 - Urinary tract infection, site not specified (2) Syncope Code(s): R55 - SYNCOPE AND COLLAPSE plan at the moment i will not start any bax will see what the cx show rest as per primay hydration
[2017-04-04] MEDS: FEBUXOSTAT 40 MG TAB PO SCH (17:56)
[2017-04-04] MEDS ORDERED: PT OWN MED DRAWER 7, Y5N ONE (21:38)
[2017-04-04] MEDS: MONTELUKAST NA 10 MG TABLET PO SCH (21:44)
[2017-04-04] MEDS: ZOLPIDEM TARTRATE 5 MG TABLET PO PRN (21:51)
[2017-04-04] MEDS ORDERED: MONTELUKAST NA 10 MG TABLET PO SCH (22:00)
--- NOTE | 2017-04-04 23:29 | HP ---
Admitting History and Physical - Admission History of Present Illness: Pt is a 72 y/o male with a PMH significant for HTN, peripheral neuropathy, chronic right ankle deformity (multiple surgeries), and chronic back pain. Pt was BIBA after being found unresponsive at pain management. As per EMS, the patient was found unresponsive and diaphoretic at pain management and was given 1.5mg of Narcan In the ER pt was found to be hypertensive with temp of 95.9 rectally. The patient was confused, coughing, and shaking. - Past Medical History Cardiovascular: Yes: HTN, Hyperlipdemia Heme/Onc: Yes: Other (Prostate cancer) Musculoskeletal: Yes: Other (Chronic rt ankle pain) Rheumatology: Yes: Gout - Past Surgical History Additional Past Surgical History: Cervical lamnectomy Multiple surgeries Rt ankle - Smoking History Smoking history: Never smoked Have you smoked in the past 12 months: No - Alcohol/Substance Use Hx Alcohol Use: Yes (2 BEERS/DAY) History of Substance Use: reports: None - Social History ADL: Independent History of Recent Travel: No Home Medications - Allergies Allergies/Adverse Reactions: Allergies Allergy/AdvReac Type Severity Reaction Status Date / Time No Known Drug Allergies Allergy Verified 04/03/17 13:50 - Home Medications Home Medications: Ambulatory Orders Aspirin [Rachelle Chewable Aspirin] 81 mg PO DAILY 04/03/17 Celecoxib [Celebrex] 200 mg PO DAILY 04/03/17 Cyanocobalamin (Vitamin B-12) [B-12] 500 mcg PO DAILY 04/03/17 Febuxostat [Uloric -] 40 mg PO DAILY 04/03/17 Gabapentin 300 mg PO QID 04/03/17 Iron 28 mg PO DAILY 04/03/17 Methocarbamol 750 mg PO BID 04/03/17 Methotrexate Sodium [Methotrexate] 2.5 mg PO DAILY 04/03/17 Metoprolol Succinate [Toprol XL -] 50 mg PO DAILY 04/03/17 Montelukast Na [Singulair -] 10 mg PO HS 04/03/17 Omeprazole Magnesium [Prilosec] 10 mg PO DAILY 04/03/17 Valsartan [Diovan] 160 mg PO BID 04/03/17 Zolpidem Tartrate [Ambien] 10 mg PO DAILY 04/03/17 Amoxicillin/Potassium Clav [Augmentin 875-125 Tablet] 1 each PO BID #20 tablet 04/06/17 Family Disease History - Family Disease History Family History: Unremarkable Review of Systems - Review of Systems Constitutional: reports: No Symptoms Eyes: reports: No Symptoms HENT: reports: No Symptoms, Ringing in Ears Cardiovascular: reports: No Symptoms Respiratory: reports: No Symptoms, Cough, Other Gastrointestinal: reports: Abdominal Pain Physical Examination Vital Signs: Vital Signs Temperature 98 F 04/04/17 22:42 Pulse Rate 80 04/04/17 22:42 Respiratory Rate 16 04/04/17 22:42 Blood Pressure 115/71 04/04/17 22:42 O2 Sat by Pulse Oximetry (%) 96 04/04/17 20:54 Constitutional: Yes: Well Nourished Eyes: Yes: WNL HENT: Yes: WNL Neck: Yes: WNL Cardiovascular: Yes: WNL Respiratory: Yes: WNL, Regular, CTA Bilaterally Gastrointestinal: Yes: WNL, Normal Bowel Sounds, Soft Musculoskeletal: Yes: WNL Extremities: Yes: WNL Edema: No Neurological: Yes: WNL, Alert, Oriented ...Motor Strength: WNL Labs: CBC, BMP 04/04/17 06:00 04/04/17 06:00 Problem List - Problems (1) Syncope Assessment/Plan: ?Near syncope Probably due to marcotic use Cont to monitor Cont IVF Code(s): R55 - SYNCOPE AND COLLAPSE (2) Anemia Assessment/Plan: Due to chronic dz (3) Ankle and foot joint derangement Code(s): M24.9 - JOINT DERANGEMENT, UNSPECIFIED (4) HTN (hypertension) Assessment/Plan: BP stable Cont antihypertensives Code(s): I10 - ESSENTIAL (PRIMARY) HYPERTENSION (5) Chronic back pain Code(s): M54.9 - DORSALGIA, UNSPECIFIED G89.29 - OTHER CHRONIC PAIN
[2017-04-05] MEDS: KETOROLAC TROMETHAMINE 30 MG/1 ML VIAL IVPUSH SCH (06:14)
[2017-04-05 07:32] LABS: BASOPHIL 0.5 % (0-2.0); MCH 34.8 pg (25.7-33.7); MCHC 33.8 g/dl (32.0-35.9); MEAN CELL VOLUME 102.8 fl (80-96); NEUTROPHILS 61.5 % (42.8-82.8); PLATELET COUNT 359 K/MM3 (134-434); RDW 13.3 % (11.9-15.9); WHITE BLOOD COUNT 8.5 K/mm3 (4.0-10.0)
[2017-04-05 08:05] LABS: ALBUMIN 3.3 g/dl (3.4-5.0); ANION GAP 7 (8-16); CALCIUM 8.8 mg/dL (8.5-10.1); CO2 25 mmol/L (21-32); GLUCOSE,RANDOM 78 mg/dL (74-106); SGOT/AST 17 U/L (15-37); SGPT/ALT 18 U/L (12-78)
[2017-04-05 08:08] LABS: ALK PHOS 82 U/L (45-117); BILIRUBIN,TOTAL 0.4 mg/dL (0.2-1.0); TOT PROT 5.7 g/dl (6.4-8.2)
[2017-04-05] MEDS ORDERED: PT OWN MED DRAWER 7, Y5N ONE (09:19)
[2017-04-05] MEDS: GABAPENTIN 300 MG CAPSULE (FP) PO SCH ×4 (09:33→21:21)
[2017-04-05] MEDS: HEPARIN NA (PORCINE) 5,000 UNITS/ML 1ML VIAL SQ SCH ×2 (09:33→22:42)
[2017-04-05] MEDS: CYANOCOBALAMIN 1,000 MCG TABLET (FP) PO SCH (09:33)
[2017-04-05] MEDS: VALSARTAN 160 MG TABLET (UD) PO SCH ×2 (09:33→21:22)
[2017-04-05] MEDS: ASPIRIN 81 MG CHEWABLE TABLETS PO SCH (09:33)
[2017-04-05] MEDS: FERROUS SO4 325 MG TABLET (FP) PO SCH (09:33)
[2017-04-05] MEDS: METHOCARBAMOL 500 MG TABLET PO SCH ×2 (09:34→21:21)
[2017-04-05] MEDS: FEBUXOSTAT 40 MG TAB PO SCH (09:35)
[2017-04-05] MEDS: cefTRIAXone 1 GM/50 ML BAG (PRE-DOCKED) IVPB SCH (09:37)
[2017-04-05] MEDS: METOPROLOL SUCCINATE 50 MG TAB.SR.24H (FP) PO SCH (10:15)
[2017-04-05] MEDS: ACETAMINOPHEN 325 MG TABLET (FP) PO PRN ×3 (11:50→22:36)
[2017-04-05] MEDS: oxyCODONE HCL 5 MG TABLET PO PRN ×3 (11:51→22:37)
--- NOTE | 2017-04-05 14:27 | PN ---
Progress Note, Physician History of Present Illness: patient doing well no issues says he is feeling well - Current Medication List Current Medications: Active Medications Acetaminophen (Tylenol -) 325 mg PO Q6H PRN PRN Reason: PAIN Last Admin: 04/05/17 11:50 Dose: 325 mg Aspirin (Asa -) 81 mg PO DAILY [facility] Last Admin: 04/05/17 09:33 Dose: 81 mg Ceftriaxone Sodium (Rocephin 1gm Ivpb (Pre-Docked)) 1 gm IVPB DAILY [facility] Last Admin: 04/05/17 09:37 Dose: 1 gm Cyanocobalamin (Vitamin B12 -) 500 mcg PO DAILY [facility] Last Admin: 04/05/17 09:33 Dose: 500 mcg Febuxostat (Uloric -) 40 mg PO DAILY [facility] Last Admin: 04/05/17 09:35 Dose: 40 mg Ferrous Sulfate (Feosol -) 325 mg PO DAILY [facility] Last Admin: 04/05/17 09:33 Dose: 325 mg Gabapentin (Neurontin -) 300 mg PO QID [facility] Last Admin: 04/05/17 09:33 Dose: 300 mg Heparin Sodium (Porcine) (Heparin -) 5,000 unit SQ BID [facility] Last Admin: 04/05/17 09:33 Dose: 5,000 unit Methocarbamol (Robaxin -) 750 mg PO BID [facility] Last Admin: 04/05/17 09:34 Dose: 750 mg Metoprolol Succinate (Toprol Xl -) 50 mg PO DAILY [facility] Last Admin: 04/04/17 14:15 Dose: Not Given Montelukast Sodium (Singulair -) 10 mg PO HS [facility] Last Admin: 04/04/17 21:44 Dose: 10 mg Oxycodone HCl (Roxicodone -) 5 mg PO Q6H PRN PRN Reason: PAIN Last Admin: 04/05/17 11:51 Dose: 5 mg Valsartan (Diovan -) 160 mg PO BID [facility] Last Admin: 04/05/17 09:33 Dose: 160 mg Zolpidem Tartrate (Ambien -) 5 mg PO HS PRN PRN Reason: INSOMNIA Last Admin: 04/04/17 21:51 Dose: 5 mg - Objective Vital Signs: Vital Signs Temperature 97.9 F 04/05/17 14:20 Pulse Rate 81 04/05/17 14:20 Respiratory Rate 18 04/05/17 14:20 Blood Pressure 134/79 04/05/17 14:20 O2 Sat by Pulse Oximetry (%) 97 04/05/17 10:56 Constitutional: Yes: No Distress, Calm Cardiovascular: Yes: Regular Rate and Rhythm Respiratory: Yes: Regular, CTA Bilaterally Gastrointestinal: Yes: Normal Bowel Sounds, Soft Musculoskeletal: Yes: WNL Extremities: Yes: WNL Neurological: Yes: Alert, Oriented Psychiatric: Yes: Alert, Oriented Labs: CBC, BMP 04/05/17 07:19 04/05/17 07:19 INR, PTT INR 1.02 (0.82-1.09) 04/03/17 14:21 Assessment/Plan Problem List - Problems (1) UTI (urinary tract infection) Code(s): N39.0 - URINARY TRACT INFECTION, SITE NOT SPECIFIED Qualifiers: Urinary tract infection type: site unspecified Hematuria presence: with hematuria Qualified Code(s): N39.0 - Urinary tract infection, site not specified (2) Syncope Code(s): R55 - SYNCOPE AND COLLAPSE plan improving no new issues continue to monitor rest a per primary
[2017-04-05] MEDS: MONTELUKAST NA 10 MG TABLET PO SCH (21:22)
[2017-04-05] MEDS: ZOLPIDEM TARTRATE 5 MG TABLET PO PRN (21:22)
--- NOTE | 2017-04-06 01:37 | PN ---
Progress Note, Physician History of Present Illness: Pt seen and examined on 04/05/17 however note was being entered late - Current Medication List Current Medications: Active Medications Acetaminophen (Tylenol -) 325 mg PO Q6H PRN PRN Reason: PAIN Last Admin: 04/05/17 22:36 Dose: 325 mg Aspirin (Asa -) 81 mg PO DAILY [facility] Last Admin: 04/05/17 09:33 Dose: 81 mg Ceftriaxone Sodium (Rocephin 1gm Ivpb (Pre-Docked)) 1 gm IVPB DAILY [facility] Last Admin: 04/05/17 09:37 Dose: 1 gm Cyanocobalamin (Vitamin B12 -) 500 mcg PO DAILY [facility] Last Admin: 04/05/17 09:33 Dose: 500 mcg Febuxostat (Uloric -) 40 mg PO DAILY [facility] Last Admin: 04/05/17 09:35 Dose: 40 mg Ferrous Sulfate (Feosol -) 325 mg PO DAILY [facility] Last Admin: 04/05/17 09:33 Dose: 325 mg Gabapentin (Neurontin -) 300 mg PO QID [facility] Last Admin: 04/05/17 21:21 Dose: 300 mg Heparin Sodium (Porcine) (Heparin -) 5,000 unit SQ BID [facility] Last Admin: 04/05/17 22:42 Dose: 5,000 unit Methocarbamol (Robaxin -) 750 mg PO BID [facility] Last Admin: 04/05/17 21:21 Dose: 750 mg Metoprolol Succinate (Toprol Xl -) 50 mg PO DAILY [facility] Last Admin: 04/05/17 10:15 Dose: 50 mg Montelukast Sodium (Singulair -) 10 mg PO HS [facility] Last Admin: 04/05/17 21:22 Dose: 10 mg Oxycodone HCl (Roxicodone -) 5 mg PO Q6H PRN PRN Reason: PAIN Last Admin: 04/05/17 22:37 Dose: 5 mg Valsartan (Diovan -) 160 mg PO BID [facility] Last Admin: 04/05/17 21:22 Dose: 160 mg Zolpidem Tartrate (Ambien -) 5 mg PO HS PRN PRN Reason: INSOMNIA Last Admin: 04/05/17 21:22 Dose: 5 mg - Objective Vital Signs: Vital Signs Temperature 97.8 F 04/05/17 22:00 Pulse Rate 76 04/05/17 22:00 Respiratory Rate 16 04/05/17 22:00 Blood Pressure 128/69 04/05/17 22:00 O2 Sat by Pulse Oximetry (%) 97 04/05/17 21:00 Constitutional: Yes: Well Nourished HENT: Yes: WNL Neck: Yes: WNL, Supple Cardiovascular: Yes: WNL, Regular Rate and Rhythm Respiratory: Yes: WNL, Regular, CTA Bilaterally Gastrointestinal: Yes: WNL, Normal Bowel Sounds, Soft, Abdomen, Obese Labs: CBC, BMP 04/05/17 07:19 04/05/17 07:19 INR, PTT INR 1.02 (0.82-1.09) 04/03/17 14:21 Problem List - Problems (1) Syncope Assessment/Plan: ?Near syncope ?drug related(narcotic)/dehydration Cont to monitor Cont IVF Neuro consult Code(s): R55 - SYNCOPE AND COLLAPSE (2) Acute renal failure Assessment/Plan: ?Dehydration Labs improved Code(s): N17.9 - ACUTE KIDNEY FAILURE, UNSPECIFIED (3) UTI (urinary tract infection) Assessment/Plan: Cont IV ceftriaxone Awaiting culture Code(s): N39.0 - URINARY TRACT INFECTION, SITE NOT SPECIFIED Qualifiers: Urinary tract infection type: site unspecified Hematuria presence: with hematuria Qualified Code(s): N39.0 - Urinary tract infection, site not specified (4) HTN (hypertension) Assessment/Plan: BP stable Cont antihypertensives Code(s): I10 - ESSENTIAL (PRIMARY) HYPERTENSION (5) Ankle and foot joint derangement Assessment/Plan: Cont robaxin Code(s): M24.9 - JOINT DERANGEMENT, UNSPECIFIED (6) Anemia Assessment/Plan: Due to chronic dz Cont B12/folic acid (7) Chronic back pain Code(s): M54.9 - DORSALGIA, UNSPECIFIED G89.29 - OTHER CHRONIC PAIN
[2017-04-06] MEDS: ACETAMINOPHEN 325 MG TABLET (FP) PO PRN (06:34)
[2017-04-06] MEDS: oxyCODONE HCL 5 MG TABLET PO PRN (06:36)
[2017-04-06] MEDS: CYANOCOBALAMIN 1,000 MCG TABLET (FP) PO SCH (10:05)
[2017-04-06] MEDS: VALSARTAN 160 MG TABLET (UD) PO SCH (10:05)
[2017-04-06] MEDS: GABAPENTIN 300 MG CAPSULE (FP) PO SCH (10:05)
[2017-04-06] MEDS: FERROUS SO4 325 MG TABLET (FP) PO SCH (10:05)
[2017-04-06] MEDS: METOPROLOL SUCCINATE 50 MG TAB.SR.24H (FP) PO SCH (10:05)
[2017-04-06] MEDS: HEPARIN NA (PORCINE) 5,000 UNITS/ML 1ML VIAL SQ SCH (10:05)
[2017-04-06] MEDS: ASPIRIN 81 MG CHEWABLE TABLETS PO SCH (10:05)
[2017-04-06] MEDS: cefTRIAXone 1 GM/50 ML BAG (PRE-DOCKED) IVPB SCH (10:06)
[2017-04-06] MEDS: METHOCARBAMOL 500 MG TABLET PO SCH (10:06)
[2017-04-06] MEDS: FEBUXOSTAT 40 MG TAB PO SCH (10:07)
[2017-04-06] MEDS ORDERED: ACETAMINOPHEN 325 MG TABLET (FP) PO ONE (11:30)
[2017-04-06] MEDS ORDERED: oxyCODONE HCL 5 MG TABLET PO PRN (11:30)
[2017-04-06] MEDS ORDERED: ACETAMINOPHEN 325 MG TABLET (FP) PO PRN (11:30)
[2017-04-06] MEDS ORDERED: oxyCODONE HCL 5 MG TABLET PO ONE (11:30)
--- NOTE | 2017-04-06 12:07 | CON.NEURO ---
Consult Consult Specialty:: Neurology - History of Present Illness History of Present Illness: 72 year old male with a significant past medical history of hypertension, peripheral neuropathy, chronic right ankle deformity (multiple surgeries), and chronic back pain, brought by ambulance from pain management presenting to the Emergency Department found unresponsive at pain management. As per EMS, the patient was found unresponsive and diaphoretic at pain management, when 1.5mg of Narcan was administered. Patient was seen on arrival to ED, and was found hypertensive and temp of 95.9 rectally. The patient was confused, coughing, and shaking. pt reports was feeling dizzy prior, no new medication were given; did see Dr Mendoza , > one montnago for epidural; sees [facility], DR MENDOZA as well as Dr Pereira for PM; no hx of seizures; feels at baseline. no history of drug abuse. Surgical Hx: multiple surgeries to right ankle, back - History Source History Provided By: Patient, Medical Record - Past Medical History Cardio/Vascular: Yes: HTN Rheumatology: Yes: Gout - Alcohol/Substance Use Hx Alcohol Use: Yes (2 BEERS/DAY) History of Substance Use: reports: None - Smoking History Smoking history: Never smoked Have you smoked in the past 12 months: No - Social History ADL: Independent History of Recent Travel: No Home Medications - Allergies Allergies/Adverse Reactions: Allergies Allergy/AdvReac Type Severity Reaction Status Date / Time No Known Drug Allergies Allergy Verified 04/03/17 13:50 - Home Medications Home Medications: Ambulatory Orders Aspirin [Rachelle Chewable] 81 mg PO DAILY 04/03/17 Celecoxib [Celebrex] 200 mg PO DAILY 04/03/17 Cyanocobalamin (Vitamin B-12) [B-12] 500 mcg PO DAILY 04/03/17 Febuxostat [Uloric -] 40 mg PO DAILY 04/03/17 Gabapentin 300 mg PO QID 04/03/17 Hydromorphone [Dilaudid -] 4 mg PO BID 04/03/17 Iron 28 mg PO DAILY 04/03/17 Methocarbamol 750 mg PO BID 04/03/17 Methotrexate Sodium [Methotrexate] 2.5 mg PO DAILY 04/03/17 Metoprolol Succinate [Toprol Xl -] 50 mg PO DAILY 04/03/17 Montelukast Na [Singulair -] 10 mg PO HS 04/03/17 Naproxen Sodium [Aleve] 220 mg PO DAILY 04/03/17 Omeprazole Magnesium [Prilosec] 10 mg PO DAILY 04/03/17 Valsartan [Diovan] 160 mg PO BID 04/03/17 Zolpidem Tartrate [Ambien] 10 mg PO DAILY 04/03/17 Physical Exam-Neuro Vital Signs: Vital Signs Temperature 97.9 F 04/06/17 06:00 Pulse Rate 77 04/06/17 11:03 Respiratory Rate 16 04/06/17 06:00 Blood Pressure 126/72 04/06/17 06:00 O2 Sat by Pulse Oximetry (%) 97 04/06/17 11:03 Constitutional: Yes: Well Nourished, No Distress Cardiovascular: Yes: Regular Rate and Rhythm Respiratory: Yes: Regular Labs: CBC, BMP 04/05/17 07:19 04/05/17 07:19 INR, PTT INR 1.02 (0.82-1.09) 04/03/17 14:21 CBCD WBC 8.5 K/mm3 (4.0-10.0) 04/05/17 07:19 RBC 3.48 M/mm3 (4.00-5.60) L 04/05/17 07:19 Hgb 12.1 GM/dL (11.7-16.9) 04/05/17 07:19 Hct 35.8 % (35.4-49) 04/05/17 07:19 MCV 102.8 fl (80-96) H 04/05/17 07:19 MCHC 33.8 g/dl (32.0-35.9) 04/05/17 07:19 RDW 13.3 % (11.9-15.9) 04/05/17 07:19 Plt Count 359 K/MM3 (134-434) 04/05/17 07:19 MPV 7.0 fl (7.5-11.1) L 04/05/17 07:19 CMP Sodium 138 mmol/L (136-145) 04/05/17 07:19 Potassium 4.1 mmol/L (3.5-5.1) 04/05/17 07:19 Chloride 106 mmol/L (98-107) 04/05/17 07:19 Carbon Dioxide 25 mmol/L (21-32) 04/05/17 07:19 Anion Gap 7 (8-16) L 04/05/17 07:19 BUN 31 mg/dL (7-18) H D 04/05/17 07:19 Creatinine 1.0 mg/dL (0.7-1.3) 04/05/17 07:19 Creat Clearance w eGFR > 60 (>60) 04/05/17 07:19 Calcium 8.8 mg/dL (8.5-10.1) 04/05/17 07:19 Total Bilirubin 0.4 mg/dL (0.2-1.0) D 04/05/17 07:19 AST 17 U/L (15-37) 04/05/17 07:19 ALT 18 U/L (12-78) 04/05/17 07:19 Alkaline Phosphatase 82 U/L (45-117) 04/05/17 07:19 Total Protein 5.7 g/dl (6.4-8.2) L 04/05/17 07:19 Albumin 3.3 g/dl (3.4-5.0) L 04/05/17 07:19 - Neuro Exam Level Of Consciousness: Yes: Alert, Oriented to Person (awake and conversive, EOMI, no facial, EOMI, VFF, no focal weakness, no level, reflxes trace; ) NIH Stroke Scale - Total Score NIH Stroke Scale Score: 0 Imaging - Results Cat Scan: Report Reviewed, Image Reviewed ( Exam Date: 04/03/17 Status: [facility] [place] [address] Unit Number: [id number] EXAM#: TYPE/EXAM: RESULT: [id number] CT/HEAD CT WITHOUT CONTRAST Unresponsive. CT scan of the brain without intravenous contrast. No prior is available for comparison. There is [id number] volume loss, ventricular dilatation and periventricular chronic microvascular ischemic changes. No mass lesion, gross acute infarct or intracranial hemorrhage is identified. There is no shift of the midline structures. Mild deviation of the nasal septum to the right. Mild mucosal thickening in the ethmoid air cells, maxillary antra and sphenoid sinus. The calvarium is intact IMPRESSION: [id number] volume loss and chronic microvascular ischemic changes without gross evidence of acute intracranial pathology. Correlate clinical to determine further evaluation and follow-up. Correlation with MRI would be helpful for further evaluation in view of the clinical history. Mild chronic sinusitis) Problem List - Problems (1) UTI (urinary tract infection) Code(s): N39.0 - URINARY TRACT INFECTION, SITE NOT SPECIFIED Qualifiers: Urinary tract infection type: site unspecified Hematuria presence: with hematuria Qualified Code(s): N39.0 - Urinary tract infection, site not specified (2) Syncope Code(s): R55 - SYNCOPE AND COLLAPSE Assessment/Plan 72 year old male with a significant past medical history of hypertension, peripheral neuropathy, chronic right ankle deformity (multiple surgeries), and chronic back pain, brought by ambulance from pain management presenting for vertigo/syncope-- ? vasovagal bc of pain, vs mild UTI vs mild ARF(dehydration) ; denies opioid overuse, back to baseline; no evidence of stroke, TIA; can get oupt CARD RICH PRN neurology FU as outpt, cleared ot go home. Dr Sarmiento (covering for Dr Morton)
[2017-04-06 12:57] VITALS: TEMP 97.7
[2017-04-06 14:16] VITALS: BP 147/88; PULSE 75
== END 2017-04-06 15:01 | disposition home or self-care (01) | DRG 690 ==
LOC: JER 13:47 → JERBED 17:42 → J4W 21:17
PROVIDERS: ADMIT Internal Medicine; ATTEND Internal Medicine
DX: N39.0 Urinary tract infection, site not specified (principal); N17.9 Acute kidney failure, unspecified; I10 Essential (primary) hypertension; G62.9 Polyneuropathy, unspecified; M21.961 Unspecified acquired deformity of right lower leg; E78.00 Pure hypercholesterolemia, unspecified; J32.8 Other chronic sinusitis; R40.4 Transient alteration of awareness; I44.0 Atrioventricular block, first degree; M10.9 Gout, unspecified; M54.89 Other dorsalgia; E86.0 Dehydration; Z85.46 Personal history of malignant neoplasm of prostate
CPT/HCPCS: 36415; 36600; 70450-TC; 71010-TC; 72158-TC; 80053; 80307; 81003; 81015; 82140; 82375; 82533; 82550; 82553; 82803; 83050; 83605; 84443; 84484; 85025; 85610; 85730; 86850; 86900; 86901; 87040; 87086; 87324; 87449; 93005; 93010; 97116-GP; 97161-GP; 99284-25; C1887; J1644

== ENCOUNTER 2017-10-28 15:08 | Inpatient (IN) | payer OTHER, BC ==
[2017-10-28 16:17] VITALS: BMI 32.1
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
[2017-10-28] MEDS ORDERED: KETOROLAC TROMETHAMINE 30 MG/1 ML VIAL IM ONE (17:11)
[2017-10-28] MEDS ORDERED: KETOROLAC TROMETHAMINE 30 MG/1 ML VIAL ONE (17:28)
[2017-10-28 19:45] LABS: URINE APPEARANCE CLEAR; URINE BILIRUBIN NEGATIVE (NEGATIVE); URINE BLOOD NEGATIVE (NEGATIVE); URINE COLOR YELLOW; URINE GLUCOSE (UA) NEGATIVE (NEGATIVE); URINE KETONE NEGATIVE (NEGATIVE); URINE LEUK ESTERASE NEGATIVE (NEGATIVE); URINE NITRITE NEGATIVE (NEGATIVE); URINE PROTEIN NEGATIVE (NEGATIVE)
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
[2017-10-28] MEDS ORDERED: morphine CARPU-JECT 2 MG/1 ML DISP.SYRIN IVPUSH ONE (20:40)
[2017-10-28] MEDS ORDERED: morphine CARPU-JECT 10 MG/1 ML DISP.SYRIN ONE (23:01)
[2017-10-28 23:22] LABS: BASO % 0.7 % (0-2.0); EOS % 7.1 % (0-4.5); HEMATOCRIT 34.2 % (35.4-49); HEMOGLOBIN 11.4 GM/dL (11.7-16.9); LYMPH % 26.9 % (8-40); MCH 34.2 pg (25.7-33.7); MCHC 33.5 g/dl (32.0-35.9); MEAN CELL VOLUME 102.3 fl (80-96); MEAN PLT VOLUME 6.4 fl (7.5-11.1); MONO % 12.3 % (3.8-10.2); PLATELET COUNT 411 K/MM3 (134-434); RBC 3.34 M/mm3 (4.00-5.60); RDW 14.7 % (11.9-15.9); WHITE BLOOD COUNT 8.8 K/mm3 (4.0-10.0)
[2017-10-28] MEDS ORDERED: HYDROmorphone HCL CARPU-JECT 1 MG/1 ML DISP.SYRIN IVPUSH ONE (23:54)
[2017-10-28 23:57] LABS: ALBUMIN 3.7 g/dl (3.4-5.0); ALK PHOS 86 U/L (45-117); ANION GAP 8 (8-16); BILIRUBIN,TOTAL 0.6 mg/dL (0.2-1.0); BLOOD UREA NITROGEN 15 mg/dL (7-18); CALCIUM 9.1 mg/dL (8.5-10.1); CHLORIDE 102 mmol/L (98-107); CO2 29 mmol/L (21-32); CREATININE 0.8 mg/dL (0.7-1.3); GLUCOSE,RANDOM 85 mg/dL (74-106); POTASSIUM 4.3 mmol/L (3.5-5.1); SGOT/AST 18 U/L (15-37); SGPT/ALT 19 U/L (12-78); SODIUM 139 mmol/L (136-145); TOT PROT 6.1 g/dl (6.4-8.2)
[2017-10-29] MEDS ORDERED: HYDROmorphone HCL CARPU-JECT 1 MG/1 ML DISP.SYRIN ONE ×2 (00:45→10:56)
[2017-10-29] MEDS ORDERED: HYDROmorphone HCL CARPU-JECT 1 MG/1 ML DISP.SYRIN IVPUSH ONE (10:30)
--- NOTE | 2017-10-29 10:47 | EKG ---
Test Reason : Blood Pressure : / mmHG Vent. Rate : 093 BPM Atrial Rate : 093 BPM P-R Int : 208 ms QRS Dur : 098 ms QT Int : 366 ms P-R-T Axes : 036 -11 001 degrees QTc Int : 455 ms NORMAL SINUS RHYTHM NORMAL ECG WHEN COMPARED WITH ECG OF 03-APR-2017 14:13, [place] INTERVAL HAS DECREASED Confirmed by POLO FAUSTIN MD ([id number]) on 10/29/2017 10:46:44 AM Referred By: Confirmed By:POLO FAUSTIN MD
[2017-10-29] MEDS ORDERED: METHOTREXATE 2.5 MG TABLET PO SCH (11:15)
[2017-10-29] MEDS ORDERED: METHOCARBAMOL 750 MG TABLET PO SCH (11:15)
[2017-10-29] MEDS: GABAPENTIN 300 MG CAPSULE (FP) PO SCH ×3 (15:55→21:43)
[2017-10-29] MEDS: HYDROmorphone HCL CARPU-JECT 2 MG/1 ML DISP.SYRIN IVPUSH PRN ×2 (15:55→20:48)
[2017-10-29] MEDS: VALSARTAN 160 MG TABLET (UD) PO SCH ×2 (16:27→21:43)
[2017-10-29] MEDS: ASPIRIN 81 MG CHEWABLE TABLETS PO SCH (16:27)
[2017-10-29] MEDS: FEBUXOSTAT 40 MG TAB PO SCH (16:28)
--- NOTE | 2017-10-29 19:13 | CONSULT ---
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 On Singulair, omeprazole, valsartan and multiple pain meds: gabapentin (300 mg QID), celebrex, methocarbamol and zolpidem for chronic insomnia. Also on methotrexate 2.5 mg daily for unclear reasons. Low back pain and leg pain, numbness and stiffness began in his 50's, at night interupting sleep. Between 2003 and he has had 4 lumbosacral surgeries, the last of which was a broad, bilateral fusion between L3 and S1 according to yesterday's CT. He has also had anterior cervical discectomy and cervical laminectomies for numbness, tingling and pain in both arms and both legs which did not improve. Now complains of neck pain, low back pain, numbness and tingling in both arms and legs and deep pain "like a toothache", diffusely in both legs. Most severe at night with severe insomnia and also during the day when immobile. Pt. c/o severe pains and stiffness in both legs and the low back when first getting OO bed or chair and beginning to move. FH sig for a sister with chronic pain and multiple spinal surgeries who is under my care for Restless Limbs Syndrome (RLS). MARY: s/p ACD, cervical laminectomy, LS laminectomies. Charcot joint right ankle after old work-related trauma. No bruits. Sl. reduced neck ROM. NEURO: MS/Speech: Normal CN: II-XII: normal. Motor: Right triceps 4/5; right finger extensors 4-/5; ankle dorsiflexion 4-5 on the right and 4/5 on the left. Areflexic (as is his sister). Plantars silent. Coord: No FTN dystaxia Sensory: Sl reduced vibration both feet. Gait: Sl flexed and shuffling. IMP: 1. Chronic C7 radiculopathy on the right 2. Chronic B/L L5 radiculopathies (R>L). 3. Severe, chronic, Restless Limbs Syndrome (RLS). SUGGEST: Check Fe++, TIBC, Ferritin Begin Pramipexole .25 mg BID after meals x 2 days and the .5 mg BID after meals. Neuro f/u as out patient. Thank you very much, Andry Morton MD
--- NOTE | 2017-10-29 20:47 | HP ---
Admitting History and Physical - Admission History of Present Illness: Pt is a 72 y/o male with PMH significant for HTN, HLD, prostate cancer, anemia, GERD, gout, ?RA, peripheral neuropathy and chronic back pain due to multiple spinal surgeries. Pt now presented to the ER bc of increased back pain(mostly LS spine). The pt is on percocet however it is no longer providing relief from the pain. The pain has an intensity of 8/10 w/ radiation down his legs. Pt also has numbness and tingling down his legs. 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 Neuropathy Cardiovascular: Yes: HTN, Hyperlipdemia Gastrointestinal: Yes: GERD Heme/Onc: Yes: Anemia, Other (Prostate cancer) Musculoskeletal: Yes: Other (Chronic rt ankle pain) Rheumatology: Yes: Gout - Past Surgical History Additional Past Surgical History: Cervical and lumbar lamnectomy - Smoking History Smoking history: Never smoked Have you smoked in the past 12 months: No - Alcohol/Substance Use Hx Alcohol Use: No History of Substance Use: reports: None - Social History ADL: Independent History of Recent Travel: No Home Medications - Allergies Allergies/Adverse Reactions: Allergies Allergy/AdvReac Type Severity Reaction Status Date / Time No Known Drug Allergies Allergy Verified 10/28/17 16:17 - Home Medications Home Medications: Ambulatory Orders Aspirin [Rachelle Chewable Aspirin] 81 mg PO DAILY 04/03/17 Celecoxib [Celebrex] 200 mg PO DAILY 04/03/17 Cyanocobalamin (Vitamin B-12) [B-12] 500 mcg PO DAILY 04/03/17 Febuxostat [Uloric -] 40 mg PO DAILY 04/03/17 Gabapentin 300 mg PO QID 04/03/17 Iron 28 mg PO DAILY 04/03/17 Methocarbamol 750 mg PO BID 04/03/17 Methotrexate Sodium [Methotrexate] 2.5 mg PO DAILY 04/03/17 Metoprolol Succinate [Toprol XL -] 50 mg PO DAILY 04/03/17 Montelukast Na [Singulair -] 10 mg PO HS 04/03/17 Omeprazole Magnesium [Prilosec] 10 mg PO DAILY 04/03/17 Valsartan [Diovan] 160 mg PO BID 04/03/17 Zolpidem Tartrate [Ambien] 10 mg PO DAILY 04/03/17 Amoxicillin/Potassium Clav [Augmentin 875-125 Tablet] 1 each PO BID #20 tablet 04/06/17 Oxycodone HCl [Oxycodone HCl ER] 10 mg PO BID 10/28/17 Oxycodone HCl/Acetaminophen [Percocet 10-325 mg Tablet] 1 each PO TID PRN Family Disease History - Family Disease History Family History: Unremarkable Review of Systems - Review of Systems Constitutional: reports: Weakness Eyes: reports: No Symptoms HENT: reports: No Symptoms Neck: reports: No Symptoms Cardiovascular: reports: No Symptoms Respiratory: reports: No Symptoms Gastrointestinal: reports: No Symptoms Musculoskeletal: reports: Back Pain, Muscle Pain Physical Examination Vital Signs: Vital Signs Temperature 97.7 F 10/29/17 19:00 Pulse Rate 87 10/29/17 19:00 Respiratory Rate 18 10/29/17 19:00 Blood Pressure 155/69 10/29/17 19:00 O2 Sat by Pulse Oximetry (%) 96 10/29/17 17:40 Constitutional: Yes: No Distress Eyes: Yes: WNL HENT: Yes: WNL Neck: Yes: WNL, Supple Cardiovascular: Yes: WNL, Regular Rate and Rhythm Respiratory: Yes: WNL, Regular, CTA Bilaterally Gastrointestinal: Yes: WNL, Normal Bowel Sounds, Soft Musculoskeletal: Yes: WNL Extremities: Yes: WNL Edema: No Neurological: Yes: WNL, Alert, Oriented ...Motor Strength: WNL Labs: CBC, BMP 10/28/17 23:12 10/28/17 23:12 Problem List - Problems (1) Intractable back pain Assessment/Plan: Cont diluadid Check MRI of LS spine Neuro consult/pain management Start PT May need neurosurgery consult Code(s): M54.9 - DORSALGIA, UNSPECIFIED (2) Chronic back pain Code(s): M54.9 - DORSALGIA, UNSPECIFIED; G89.29 - OTHER CHRONIC PAIN (3) HTN (hypertension) Assessment/Plan: Bp stable Code(s): I10 - ESSENTIAL (PRIMARY) HYPERTENSION (4) HLD (hyperlipidemia) Code(s): E78.5 - HYPERLIPIDEMIA, UNSPECIFIED (5) Arthritis Code(s): M19.90 - UNSPECIFIED OSTEOARTHRITIS, UNSPECIFIED SITE (6) GERD (gastroesophageal reflux disease) Code(s): K21.9 - GASTRO-ESOPHAGEAL REFLUX DISEASE WITHOUT ESOPHAGITIS (7) Anemia Code(s): D64.9 - ANEMIA, UNSPECIFIED
[2017-10-29] MEDS: PRAMIPEXOLE DIHYDROCHLORIDE 0.25 MG TABLET PO SCH (21:41)
[2017-10-29] MEDS: METHOCARBAMOL 500 MG TABLET PO SCH (21:41)
[2017-10-29] MEDS: MONTELUKAST NA 10 MG TABLET PO SCH (21:43)
[2017-10-29] MEDS: HEPARIN NA (PORCINE) 5,000 UNITS/ML 1ML VIAL SQ SCH (22:10)
[2017-10-30] MEDS: HYDROmorphone HCL CARPU-JECT 2 MG/1 ML DISP.SYRIN IVPUSH PRN (02:27)
[2017-10-30] MEDS: PRAMIPEXOLE DIHYDROCHLORIDE 0.25 MG TABLET PO SCH ×3 (06:38→22:06)
[2017-10-30] MEDS: HYDROmorphone HCL CARPU-JECT 1 MG/1 ML DISP.SYRIN IVPB PRN ×2 (08:25→13:26)
[2017-10-30] MEDS ORDERED: PNEUMOC 13-VAL CONJ-DIP CRM/PF 0.5 ML DISP.SYRIN IM ONE (09:00)
[2017-10-30] MEDS ORDERED: FLU VACCINE QUAD 60 MCG/0.5 ML (MDV 17-18) IM ONE (09:00)
[2017-10-30] MEDS ORDERED: PT OWN MED DRAWER 7, Y5N ONE ×2 (11:17→13:18)
[2017-10-30] MEDS: VALSARTAN 160 MG TABLET (UD) PO SCH ×2 (11:23→22:05)
[2017-10-30] MEDS: PANTOPRAZOLE 20 MG TABLET (FP) PO SCH (11:23)
[2017-10-30] MEDS: ASPIRIN 81 MG CHEWABLE TABLETS PO SCH (11:23)
[2017-10-30] MEDS: CYANOCOBALAMIN 1,000 MCG TABLET (FP) PO SCH (11:23)
[2017-10-30] MEDS: GABAPENTIN 300 MG CAPSULE (FP) PO SCH ×2 (11:23→14:41)
[2017-10-30] MEDS: FERROUS SO4 325 MG TABLET (FP) PO SCH (11:23)
[2017-10-30] MEDS: CELECOXIB 200 MG CAPSULE PO SCH (11:24)
[2017-10-30] MEDS: HEPARIN NA (PORCINE) 5,000 UNITS/ML 1ML VIAL SQ SCH ×2 (11:24→22:05)
[2017-10-30] MEDS: POLYETHYLENE GLYCOL 3350 119 GM BTL PO SCH (11:25)
[2017-10-30] MEDS: METHOCARBAMOL 500 MG TABLET PO SCH ×2 (11:29→22:06)
[2017-10-30] MEDS: FEBUXOSTAT 40 MG TAB PO SCH (11:29)
--- NOTE | 2017-10-30 15:56 | PN ---
Progress Note (short form) - Note Progress Note: NEUROSURGERY Pt known to me. Last seen over one year ago. Discharged to pain management previously. Had undergone L4-5-S1 fusion 11 years ago by me. 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 [facility]. Also had anterior cervical fusion at [facility] subsequently. C/o increased LBP and B sciatica to lateral-posterior thigh,calf , foot of 6 months duration. + numbness, tingling and weakness B Le and hands ( chronic) Constipated with urinary hesitancy attributable to narcotic painkillers. Has been under the care of Dr Pereira for pain management. Stated that he did not improved after most recent surgeries. Pain has been very severe and he could not ambulate secondary to pain. PMH: HTN, Chol, COPD, Gout and prostatic Ca; lumbar fusion L4-5 followed by L3- 4; ACDF Meds: Singulair, omeprazole, valsartan and multiple pain meds: gabapentin , celebrex, methocarbamol,zolpidem, methotrexate . NKDA SoHx: non-smoker, non-drinker ROS- weight stable (had lost weight through the years); negative for fever/ chill and other new symptoms from CV/pulm.GI//endocrine/neurological/psych problems except for the above PE: AF, VSS HEENT- NC/AT; Neck- supple, incision C/D/I; Cor- RR; Lungs- CTA; Abd: benign, + BS; Ext- R ankle swelling (prior surgery); no other sign of DVT CN- intact; Motor- 4+-5 B except R DF/PF 4- ankle limited and R triceps and L DF /PF 4-4+; Sensation- decreased B feet > hand vibration; DTR- hyporeflexic WBC 8.8, Hgb 11.4; BUN 15, Cr 0.[address]- prior L4-S1 and L3-4 fusion with instrumentation; facet arthrosis L1-2 and L2-3; endplate sclerosis L1-2 and L2-3; prior L3-4-5 laminectomies; pedicle screw system in place LS spine MRI with/without (2016)- acute R L1-2 paracentral HNP with superiorly migrating disc fragment; broad based disc bulge L2-3 with B lateral recess stenosis; L1-2 and L3-4 DDD LS spine MRI (prelim)- Prior L3-4-5-S1 fusion; central and L L2-3 central/ paracentral disc herniation with downwardly migrating disc fragment to entire length of L3 body with central thecal sac impingement; Prior R L1-2 HNP significantly smaller with only small disc protrusion this time; postlaminectomy changes L3-4-5; slightly worse L1-2 and L2-3 DDD with endplate sclerosis and mild disc edema Progressive L1-2 and L2-3 DDD with acute central L L2-3 HNP with thecal sac impingement; chronic cervical radiculopathy Medication adjustment DVT prophylaxis Cont PT-core strengthening program Check ESR/CRP/blood culture baseline, though doubt infectious process in spine Increase neurontin to 400 mg tid LS spine MRI to better delineate L2-3 pathology Surgery to extend decompression to L1-2 and L2-3 possible but further adjacent level disease very likely give his history and progression Pros and cons d/w pt and family and they wish to consider SCS trial; Left message to discuss possibility of SCS trial (Dr Pereira not available per his office) If further lumbar surgery desired should be taken care of by the surgeon who operated on him most recently for his cervical fusion and lumbar fusion procedures Spent 60 min on the floor/bedside to review studies, examine pt, discuss treatment with pt/family, attempt to reach Dr Pereira
[2017-10-30] MEDS: HYDROmorphone HCL CARPU-JECT 2 MG/1 ML DISP.SYRIN IVPB PRN (19:19)
[2017-10-30] MEDS: MONTELUKAST NA 10 MG TABLET PO SCH (22:05)
[2017-10-30] MEDS: GABAPENTIN 400 MG CAPSULE (FP) PO SCH (22:06)
[2017-10-30] MEDS: morphine SO4 SUSTAINED ACTING 15 MG TABLET.SA PO SCH (22:06)
--- NOTE | 2017-10-30 22:24 | PN ---
Progress Note, Physician History of Present Illness: No improvement in pain - Current Medication List Current Medications: Active Medications Aspirin (Asa -) 81 mg PO DAILY [facility] Last Admin: 10/30/17 11:23 Dose: 81 mg Celecoxib (Celebrex -) 200 mg PO DAILY [facility] Last Admin: 10/30/17 11:24 Dose: 200 mg Cyanocobalamin (Vitamin B12 -) 500 mcg PO DAILY [facility] Last Admin: 10/30/17 11:23 Dose: 500 mcg Febuxostat (Uloric -) 40 mg PO DAILY [facility] Last Admin: 10/30/17 11:29 Dose: 40 mg Ferrous Sulfate (Feosol -) 325 mg PO DAILY [facility] Last Admin: 10/30/17 11:23 Dose: 325 mg Gabapentin (Neurontin -) 400 mg PO TID [facility] Last Admin: 10/30/17 22:06 Dose: 400 mg Heparin Sodium (Porcine) (Heparin -) 5,000 unit SQ BID [facility] Last Admin: 10/30/17 22:05 Dose: 5,000 unit Hydromorphone HCl (Dilaudid Injection -) 1 mg IVPB Q6H PRN PRN Reason: PAIN LEVEL 6-10 Last Admin: 10/30/17 19:19 Dose: 1 mg Methocarbamol (Robaxin -) 750 mg PO BID [facility] Last Admin: 10/30/17 22:06 Dose: 750 mg Methotrexate (Mexate -) 2.5 mg PO DAILY [facility] Metoprolol Succinate (Toprol Xl -) 50 mg PO DAILY [facility] Last Admin: 10/30/17 11:23 Dose: 50 mg Montelukast Sodium (Singulair -) 10 mg PO HS [facility] Last Admin: 10/30/17 22:05 Dose: 10 mg Morphine Sulfate (Ms Contin -) 15 mg PO BID@1000,2200 [facility] Last Admin: 10/30/17 22:06 Dose: 15 mg Pantoprazole Sodium (Protonix -) 20 mg PO DAILY [facility] Last Admin: 10/30/17 11:23 Dose: 20 mg Polyethylene Glycol (Miralax (For Daily Use) -) 17 gm PO DAILY [facility] Last Admin: 10/30/17 11:25 Dose: 17 gm Pramipexole Dihydrochloride (Mirapex -) 0.25 mg PO TID [facility] Last Admin: 10/30/17 22:06 Dose: 0.25 mg Valsartan (Diovan -) 160 mg PO BID [facility] Last Admin: 10/30/17 22:05 Dose: 160 mg - Objective Vital Signs: Vital Signs Temperature 97.6 F 10/30/17 18:48 Pulse Rate 81 10/30/17 18:48 Respiratory Rate 22 10/30/17 18:48 Blood Pressure 138/77 10/30/17 18:48 O2 Sat by Pulse Oximetry (%) 97 10/30/17 09:00 Constitutional: Yes: No Distress Neck: Yes: WNL, Supple Cardiovascular: Yes: WNL, Regular Rate and Rhythm Respiratory: Yes: WNL, Regular, CTA Bilaterally Gastrointestinal: Yes: WNL, Normal Bowel Sounds, Soft Extremities: Yes: WNL Edema: No Labs: CBC, BMP 10/28/17 23:12 10/28/17 23:12 Problem List - Problems (1) Intractable back pain Assessment/Plan: Cont diluadid Neuro consult/pain management Code(s): M54.9 - DORSALGIA, UNSPECIFIED (2) Chronic back pain Code(s): M54.9 - DORSALGIA, UNSPECIFIED; G89.29 - OTHER CHRONIC PAIN (3) HTN (hypertension) Code(s): I10 - ESSENTIAL (PRIMARY) HYPERTENSION (4) HLD (hyperlipidemia) Code(s): E78.5 - HYPERLIPIDEMIA, UNSPECIFIED (5) Arthritis Code(s): M19.90 - UNSPECIFIED OSTEOARTHRITIS, UNSPECIFIED SITE (6) GERD (gastroesophageal reflux disease) Code(s): K21.9 - GASTRO-ESOPHAGEAL REFLUX DISEASE WITHOUT ESOPHAGITIS (7) Anemia Code(s): D64.9 - ANEMIA, UNSPECIFIED
[2017-10-31] MEDS: HYDROmorphone HCL CARPU-JECT 2 MG/1 ML DISP.SYRIN IVPB PRN ×4 (02:02→21:07)
[2017-10-31] MEDS: PRAMIPEXOLE DIHYDROCHLORIDE 0.25 MG TABLET PO SCH ×2 (06:19→14:58)
[2017-10-31] MEDS: GABAPENTIN 400 MG CAPSULE (FP) PO SCH ×3 (06:19→21:06)
[2017-10-31 08:07] LABS: SERUM IRON SATURATION 37 % (15-55); TOTAL IRON BINDING CAPACITY 221 ug/dL (250-450); UIBC 140 ug/dL (111-343)
--- NOTE | 2017-10-31 08:27 | PN ---
Progress Note (short form) - Note Progress Note: NEUROSURGERY Still with severe LBP and intermittent sciatica PE: Tmax 98.4, AF, VSS HEENT- NC/AT; Neck- supple, incision C/D/I; Cor- RR; Lungs- CTA; Abd: benign, + BS; Ext- R ankle swelling (prior surgery); no other sign of DVT CN- intact; Motor- 4+-5 B except R DF/PF 4- ankle limited and R triceps and L DF /PF 4-4+; Sensation- decreased B feet > hand vibration; DTR- hyporeflexic WBC 8.8, Hgb 11.4; BUN 15, Cr 0.8; ESR/CRP/blood culture pending LS spine CT- prior L4-S1 and L3-4 fusion with instrumentation; facet arthrosis L1-2 and L2-3; endplate sclerosis L1-2 and L2-3; prior L3-4-5 laminectomies; pedicle screw system in place LS spine MRI with/without (2016)- acute R L1-2 paracentral HNP with superiorly migrating disc fragment; broad based disc bulge L2-3 with B lateral recess stenosis; L1-2 and L3-4 DDD LS spine MRI - Prior L3-4-5-S1 fusion; central and L L2-3 central/paracentral disc herniation with downwardly migrating disc fragment to entire length of L3 body with central thecal sac impingement; Prior R L1-2 HNP significantly smaller with only small disc protrusion this time; postlaminectomy changes L3-4- 5; slightly worse L1-2 and L2-3 DDD with endplate sclerosis and mild disc edema LS spine MRI with ed (prelim)- L1-2 and L2-3 endplate enhancement, epidural enhancement throughout LS spine epidural space; + enhancement L1-2 and L2-3 epidural space with small anterior rim enhancement behind L3 vertebral body; appears to be somewhat more pronounced enhancement c/w 04/2017 MRI Progressive L1-2 and L2-3 DDD with acute central L L2-3 HNP with thecal sac impingement; chronic cervical radiculopathy Endplate sclerosis L1-2 and L2-3 with epidural enhancement DVT prophylaxis Increased neurontin to 400 mg tid LS spine MRI to better delineate L2-3 pathology Left message to discuss nature of most recent injections and possibility of SCS trial (Dr Pereira not available per his office) Consider CT guided Bx of L1-2 or L2-3 disc/Consider ID input per PMD- d/w Dr Kevin by phone If further lumbar surgery desired should be taken care of by the surgeon who operated on him most recently for his lumbar fusion procedure (2-3 years ago at [facility] reportedly)
[2017-10-31] MEDS ORDERED: PT OWN MED DRAWER 7, Y5N ONE ×2 (10:41→14:54)
[2017-10-31] MEDS: ASPIRIN 81 MG CHEWABLE TABLETS PO SCH (10:42)
[2017-10-31] MEDS: CELECOXIB 200 MG CAPSULE PO SCH (10:43)
[2017-10-31] MEDS: PANTOPRAZOLE 20 MG TABLET (FP) PO SCH (10:43)
[2017-10-31] MEDS: FERROUS SO4 325 MG TABLET (FP) PO SCH (10:43)
[2017-10-31] MEDS: VALSARTAN 160 MG TABLET (UD) PO SCH ×2 (10:43→21:05)
[2017-10-31] MEDS: morphine SO4 SUSTAINED ACTING 15 MG TABLET.SA PO SCH ×2 (10:43→21:05)
[2017-10-31] MEDS: CYANOCOBALAMIN 1,000 MCG TABLET (FP) PO SCH (10:43)
[2017-10-31] MEDS: FEBUXOSTAT 40 MG TAB PO SCH (10:43)
[2017-10-31] MEDS: METHOCARBAMOL 500 MG TABLET PO SCH ×2 (10:44→21:06)
[2017-10-31] MEDS: POLYETHYLENE GLYCOL 3350 119 GM BTL PO SCH (10:44)
[2017-10-31] MEDS: HEPARIN NA (PORCINE) 5,000 UNITS/ML 1ML VIAL SQ SCH ×2 (10:44→21:05)
--- NOTE | 2017-10-31 16:04 | CON.ID ---
Consult Consult Specialty:: infectious diseases Referred by:: Reason for Consultation:: back pain and numbness of the legs - History of Present Illness Chief Complaint: back pain and numbness History of Present Illness: 72 yo RH man is a retired [place] [employer] with h/o HTN, Chol, COPD, Gout and prostatic Ca 15 years ago (on Lupron for 5 years). and multiple pain meds patient has been having back pain since a long time Between 2003 and he has had 4 lumbosacral surgeries, the last of which was a broad, bilateral fusion between L3 and S1 according to yesterday's CT. He has also had anterior cervical discectomy and cervical laminectomies for numbness, tingling and pain in both arms and both legs which did not improve. Now complains of neck pain, low back pain, numbness and tingling in both arms and legs and deep pain patient mentions that the numbness is so bad that when she sat on toilet did not have strength to exert pressure his last surgery on the cervical spine was 4 months back currently he is in severe pain and also mentions that he has numbness in both his legs and hands denies any fever\ wounds have been good sites have healed well denies any discharge from the wounds or any sort of infection from the wound - History Source History Provided By: Patient Limitations to Obtaining History: No Limitations - Past Medical History L[employer] SERV[employer]: Yes: Peripheral Neuropathy Cardio/Vascular: Yes: HTN, Hyperlipdemia Gastrointestinal: Yes: GERD Musculoskeletal: Yes: Other (Chronic rt ankle pain) Rheumatology: Yes: Gout - Alcohol/Substance Use Hx Alcohol Use: No History of Substance Use: reports: None - Smoking History Smoking history: Never smoked Have you smoked in the past 12 months: No - Social History ADL: Independent History of Recent Travel: No Home Medications - Allergies Allergies/Adverse Reactions: Allergies Allergy/AdvReac Type Severity Reaction Status Date / Time No Known Drug Allergies Allergy Verified 10/28/17 16:17 - Home Medications Home Medications: Ambulatory Orders Aspirin [Rachelle Chewable Aspirin] 81 mg PO DAILY 04/03/17 Celecoxib [Celebrex] 200 mg PO DAILY 04/03/17 Cyanocobalamin (Vitamin B-12) [B-12] 500 mcg PO DAILY 04/03/17 Febuxostat [Uloric -] 40 mg PO DAILY 04/03/17 Gabapentin 300 mg PO QID 04/03/17 Iron 28 mg PO DAILY 04/03/17 Methocarbamol 750 mg PO BID 04/03/17 Methotrexate Sodium [Methotrexate] 2.5 mg PO DAILY 04/03/17 Metoprolol Succinate [Toprol XL -] 50 mg PO DAILY 04/03/17 Montelukast Na [Singulair -] 10 mg PO HS 04/03/17 Omeprazole Magnesium [Prilosec] 10 mg PO DAILY 04/03/17 Valsartan [Diovan] 160 mg PO BID 04/03/17 Zolpidem Tartrate [Ambien] 10 mg PO DAILY 04/03/17 Amoxicillin/Potassium Clav [Augmentin 875-125 Tablet] 1 each PO BID #20 tablet 04/06/17 Oxycodone HCl [Oxycodone HCl ER] 10 mg PO BID 10/28/17 Oxycodone HCl/Acetaminophen [Percocet 10-325 mg Tablet] 1 each PO TID PRN Review of Systems - Review of Systems Constitutional: reports: No Symptoms Eyes: reports: No Symptoms HENT: reports: No Symptoms Neck: reports: No Symptoms Cardiovascular: reports: No Symptoms Respiratory: reports: No Symptoms Gastrointestinal: reports: No Symptoms Genitourinary: reports: No Symptoms Musculoskeletal: reports: Back Pain, Other (numbness) Integumentary: reports: No Symptoms Neurological: reports: No Symptoms Endocrine: reports: No Symptoms Hematology/Lymphatic: reports: No Symptoms Physical Exam Vital Signs: Vital Signs Temperature 97.5 F L 10/31/17 14:31 Pulse Rate 80 10/31/17 14:31 Respiratory Rate 18 10/31/17 14:31 Blood Pressure 126/66 10/31/17 14:31 O2 Sat by Pulse Oximetry (%) 97 10/31/17 09:00 Constitutional: Yes: Well Nourished, Calm, Moderate Distress Eyes: Yes: Conjunctiva Clear HENT: Yes: Atraumatic, Normocephalic Neck: Yes: Supple, Trachea Midline Cardiovascular: Yes: Regular Rate and Rhythm Respiratory: Yes: Regular, CTA Bilaterally Gastrointestinal: Yes: Normal Bowel Sounds, Soft Musculoskeletal: Yes: Back Pain, Other Extremities: Yes: WNL Wound/Incision: Yes: Clean/Dry Neurological: Yes: Alert, Oriented Psychiatric: Yes: Alert, Oriented Labs: CBC, BMP 10/28/17 23:12 10/28/17 23:12 Imaging - Results MRI: Report Reviewed, Image Reviewed Assessment/Plan after looking at the mri and patients symptoms there is a collection noted in the mri patient esr and crp are wnl patient at l1 and l2 collection noted my suggestion is that we should get a biopsy and aspiration of collection from that region once we have the biopsy result and the fluid results then we will decide how should we proceed further i cannot completely r/o infectious process but her crp and esr are wnl Problem List - Problems (1) Intractable back pain Code(s): M54.9 - DORSALGIA, UNSPECIFIED (2) Chronic back pain Code(s): M54.9 - DORSALGIA, UNSPECIFIED; G89.29 - OTHER CHRONIC PAIN (3) HTN (hypertension) Assessment/Plan: Bp stable Code(s): I10 - ESSENTIAL (PRIMARY) HYPERTENSION (4) HLD (hyperlipidemia) Code(s): E78.5 - HYPERLIPIDEMIA, UNSPECIFIED (5) Arthritis Code(s): M19.90 - UNSPECIFIED OSTEOARTHRITIS, UNSPECIFIED SITE (6) GERD (gastroesophageal reflux disease) Code(s): K21.9 - GASTRO-ESOPHAGEAL REFLUX DISEASE WITHOUT ESOPHAGITIS (7) Anemia Code(s): D64.9 - ANEMIA, UNSPECIFIED plan no abx at this time aspiration and biopsy at l1-l2 neurosurgery on case pain mgmt rest as per the neurosurgery once we have results will decide on further mgmt
--- NOTE | 2017-10-31 19:07 | PN ---
Progress Note (short form) - Note Progress Note: NEUROLOGY FOLLOW-UP: Events and MRI reviewed. Patient examined. Dr. Mendoza's detailed consult and follow-up read and greatly appreciated. Patient was much more active, ambulating (with R AFO) and driving until two weeks ago when he describes the sudden onset of increase in his chronic low back pain with increased pain and numbness in his legs. A striking change was increased pain with walking and standing in one spot which would make him feel as if his knees might buckle. Now he "can't get to the bathroom quickly enough" and has had incontinence (in that situation). Also notes that "turning his head makes his whole body numb" and that eating and swallowing cause shooting pains in his legs. More comfortable at rest and in bed on current regimen (with addition of pramipexole .25 TID). Sleep is a little better. MRI of LS spine (reviewed): Moderately, severe, diffuse DJD. Well-placed pedicular screws and fusion L3-S1. Large L2L3 disc herniation with severe spinal stenosis. This was NOT present in the prior LS MRI of 03/31/17 which did show L1L2 HNP with rostrad extention (which is improved on the current study). EXAM: Clearly more comfortable at rest. + SLR on right at 60. Sl decreased neck ROM. Normal arm strength. Left ankle DF4/5, R 4-/5. Absent AJ's. Touch and proprioception (toe direction of mov't) are preserved in both feet. IMP: New, severe, L2L3 HNP with severe LS spinal stenosis (HNP not present in study of 03/31/17). SUGGEST: Observe carefully for the development of Caudae equina syndrome Increase pramipexole to .5 mg q 8 hrs for pains at rest MRI of cervical spine. EMG/NCS legs. PT for gait with walker. THank you very much, Andry Morton MD
[2017-10-31] MEDS: PRAMIPEXOLE DIHYDROCHLORIDE 0.5 MG TABLET PO SCH (21:04)
[2017-10-31] MEDS: MONTELUKAST NA 10 MG TABLET PO SCH (21:06)
--- NOTE | 2017-10-31 23:58 | PN ---
Progress Note, Physician History of Present Illness: Pt still having intractable back pain - Current Medication List Current Medications: Active Medications Aspirin (Asa -) 81 mg PO DAILY [facility] Last Admin: 10/31/17 10:42 Dose: 81 mg Celecoxib (Celebrex -) 200 mg PO DAILY [facility] Last Admin: 10/31/17 10:43 Dose: 200 mg Cyanocobalamin (Vitamin B12 -) 500 mcg PO DAILY [facility] Last Admin: 10/31/17 10:43 Dose: 500 mcg Febuxostat (Uloric -) 40 mg PO DAILY [facility] Last Admin: 10/31/17 10:43 Dose: 40 mg Ferrous Sulfate (Feosol -) 325 mg PO DAILY [facility] Last Admin: 10/31/17 10:43 Dose: 325 mg Gabapentin (Neurontin -) 400 mg PO TID [facility] Last Admin: 10/31/17 21:06 Dose: 400 mg Heparin Sodium (Porcine) (Heparin -) 5,000 unit SQ BID [facility] Last Admin: 10/31/17 21:05 Dose: 5,000 unit Hydromorphone HCl (Dilaudid Injection -) 1 mg IVPB Q6H PRN PRN Reason: PAIN LEVEL 6-10 Last Admin: 10/31/17 21:07 Dose: 1 mg Methocarbamol (Robaxin -) 750 mg PO BID [facility] Last Admin: 10/31/17 21:06 Dose: 750 mg Methotrexate (Mexate -) 2.5 mg PO DAILY [facility] Metoprolol Succinate (Toprol Xl -) 50 mg PO DAILY [facility] Last Admin: 10/31/17 10:43 Dose: 50 mg Montelukast Sodium (Singulair -) 10 mg PO HS [facility] Last Admin: 10/31/17 21:06 Dose: 10 mg Morphine Sulfate (Ms Contin -) 15 mg PO BID@1000,2200 [facility] Last Admin: 10/31/17 21:05 Dose: 15 mg Pantoprazole Sodium (Protonix -) 20 mg PO DAILY [facility] Last Admin: 10/31/17 10:43 Dose: 20 mg Polyethylene Glycol (Miralax (For Daily Use) -) 17 gm PO DAILY [facility] Last Admin: 10/31/17 10:44 Dose: 17 gm Pramipexole Dihydrochloride (Mirapex -) 0.5 mg PO TID [facility] Last Admin: 10/31/17 21:04 Dose: 0.5 mg Valsartan (Diovan -) 160 mg PO BID [facility] Last Admin: 10/31/17 21:05 Dose: 160 mg - Objective Vital Signs: Vital Signs Temperature 98.0 F 10/31/17 18:00 Pulse Rate 82 10/31/17 18:00 Respiratory Rate 20 10/31/17 18:00 Blood Pressure 159/85 10/31/17 18:00 O2 Sat by Pulse Oximetry (%) 97 10/31/17 09:00 Constitutional: Yes: No Distress Neck: Yes: WNL, Supple Cardiovascular: Yes: WNL, Regular Rate and Rhythm Respiratory: Yes: WNL, Regular, CTA Bilaterally Gastrointestinal: Yes: WNL, Normal Bowel Sounds, Soft Labs: CBC, BMP 10/28/17 23:12 10/28/17 23:12 Problem List - Problems (1) Intractable back pain Assessment/Plan: Cont diluadid Neuro consult/pain management/NSG consults MRI reviewed w/ pt Will need Bone bx of LS spine Code(s): M54.9 - DORSALGIA, UNSPECIFIED (2) Chronic back pain Code(s): M54.9 - DORSALGIA, UNSPECIFIED; G89.29 - OTHER CHRONIC PAIN (3) HTN (hypertension) Code(s): I10 - ESSENTIAL (PRIMARY) HYPERTENSION (4) HLD (hyperlipidemia) Code(s): E78.5 - HYPERLIPIDEMIA, UNSPECIFIED (5) Arthritis Code(s): M19.90 - UNSPECIFIED OSTEOARTHRITIS, UNSPECIFIED SITE (6) GERD (gastroesophageal reflux disease) Code(s): K21.9 - GASTRO-ESOPHAGEAL REFLUX DISEASE WITHOUT ESOPHAGITIS (7) Anemia Code(s): D64.9 - ANEMIA, UNSPECIFIED
[2017-11-01] MEDS: HYDROmorphone HCL CARPU-JECT 2 MG/1 ML DISP.SYRIN IVPB PRN ×4 (03:11→22:57)
[2017-11-01] MEDS: PRAMIPEXOLE DIHYDROCHLORIDE 0.5 MG TABLET PO SCH ×3 (06:23→21:28)
[2017-11-01] MEDS: GABAPENTIN 400 MG CAPSULE (FP) PO SCH (06:23)
[2017-11-01] MEDS ORDERED: PT OWN MED DRAWER 7, Y5N ONE ×2 (09:19→21:17)
[2017-11-01] MEDS: FEBUXOSTAT 40 MG TAB PO SCH (09:30)
[2017-11-01] MEDS: FERROUS SO4 325 MG TABLET (FP) PO SCH (09:30)
[2017-11-01] MEDS: VALSARTAN 160 MG TABLET (UD) PO SCH ×2 (09:31→21:27)
[2017-11-01] MEDS: PANTOPRAZOLE 20 MG TABLET (FP) PO SCH (09:31)
[2017-11-01] MEDS: METHOCARBAMOL 500 MG TABLET PO SCH ×2 (09:31→21:28)
[2017-11-01] MEDS: HEPARIN NA (PORCINE) 5,000 UNITS/ML 1ML VIAL SQ SCH ×2 (09:31→21:27)
[2017-11-01] MEDS: CELECOXIB 200 MG CAPSULE PO SCH (09:32)
[2017-11-01] MEDS: morphine SO4 SUSTAINED ACTING 15 MG TABLET.SA PO SCH ×2 (09:32→21:27)
[2017-11-01] MEDS: CYANOCOBALAMIN 1,000 MCG TABLET (FP) PO SCH (09:33)
[2017-11-01] MEDS: ASPIRIN 81 MG CHEWABLE TABLETS PO SCH (09:33)
[2017-11-01] MEDS: POLYETHYLENE GLYCOL 3350 119 GM BTL PO SCH (09:34)
--- NOTE | 2017-11-01 10:13 | PN ---
Progress Note (short form) - Note Progress Note: NEUROSURGERY Still with severe LBP and intermittent sciatica to hips Pain worse with coughing PE: Tmax 98.6, AF, VSS HEENT- NC/AT; Neck- supple, incision C/D/I; Cor- RR; Lungs- CTA; Abd: benign, + BS; Ext- R ankle swelling (prior surgery); no other sign of DVT CN- intact; Motor- 4+-5 B except R DF/PF 4- ankle limited and R triceps and L DF /PF 4-4+; Sensation- decreased B feet > hand vibration; DTR- hyporeflexic ESR 11; CRP 0.4; blood culture pending LS spine CT- prior L4-S1 and L3-4 fusion with instrumentation; facet arthrosis L1-2 and L2-3; endplate sclerosis L1-2 and L2-3; prior L3-4-5 laminectomies; pedicle screw system in place LS spine MRI with/without (2016)- acute R L1-2 paracentral HNP with superiorly migrating disc fragment; broad based disc bulge L2-3 with B lateral recess stenosis; L1-2 and L3-4 DDD LS spine MRI - Prior L3-4-5-S1 fusion; central and L L2-3 central/paracentral disc herniation with downwardly migrating disc fragment to entire length of L3 body with central thecal sac impingement; Prior R L1-2 HNP significantly smaller with only small disc protrusion this time; postlaminectomy changes L3-4- 5; slightly worse L1-2 and L2-3 DDD with endplate sclerosis and mild disc edema LS spine MRI with ed - L1-2 and L2-3 endplate enhancement, epidural enhancement throughout LS spine epidural space; + enhancement L1-2 and L2-3 epidural space with small anterior rim enhancement behind L3 vertebral body; appears to be somewhat more pronounced enhancement c/w 04/2017 MRI Progressive L1-2 and L2-3 DDD with acute central L L2-3 HNP with thecal sac impingement; chronic cervical radiculopathy Endplate sclerosis L1-2 and L2-3 with epidural enhancement into neuroforamen SCS (trial then possibly implant) discussed with pt and family and they are interested but able to reach Dr Pereira DVT prophylaxis Increased neurontin to [address] guided Bx of L1-2 or L2-3 disc Any future elective spinal procedures should be deferred until infection is ruled out Care d/w Dr Kevin yesterday
--- NOTE | 2017-11-01 11:39 | PN ---
Progress Note, Physician History of Present Illness: Pt seen and examined. Events noted, labs/imaging results reviewed. Pt is complaining of back pain. Remains afebrile. - Current Medication List Current Medications: Active Medications Aspirin (Asa -) 81 mg PO DAILY [facility] Last Admin: 11/01/17 09:33 Dose: 81 mg Celecoxib (Celebrex -) 200 mg PO DAILY [facility] Last Admin: 11/01/17 09:32 Dose: 200 mg Cyanocobalamin (Vitamin B12 -) 500 mcg PO DAILY [facility] Last Admin: 11/01/17 09:33 Dose: 500 mcg Febuxostat (Uloric -) 40 mg PO DAILY [facility] Last Admin: 11/01/17 09:30 Dose: 40 mg Ferrous Sulfate (Feosol -) 325 mg PO DAILY [facility] Last Admin: 11/01/17 09:30 Dose: 325 mg Gabapentin (Neurontin -) 600 mg PO TID [facility] Heparin Sodium (Porcine) (Heparin -) 5,000 unit SQ BID [facility] Last Admin: 11/01/17 09:31 Dose: 5,000 unit Hydromorphone HCl (Dilaudid Injection -) 1 mg IVPB Q6H PRN PRN Reason: PAIN LEVEL 6-10 Last Admin: 11/01/17 09:59 Dose: 1 mg Methocarbamol (Robaxin -) 750 mg PO BID [facility] Last Admin: 11/01/17 09:31 Dose: 750 mg Methotrexate (Mexate -) 2.5 mg PO DAILY [facility] Metoprolol Succinate (Toprol Xl -) 50 mg PO DAILY [facility] Last Admin: 11/01/17 09:31 Dose: 50 mg Montelukast Sodium (Singulair -) 10 mg PO HS [facility] Last Admin: 10/31/17 21:06 Dose: 10 mg Morphine Sulfate (Ms Contin -) 15 mg PO BID@1000,2200 [facility] Last Admin: 11/01/17 09:32 Dose: 15 mg Pantoprazole Sodium (Protonix -) 20 mg PO DAILY [facility] Last Admin: 11/01/17 09:31 Dose: 20 mg Polyethylene Glycol (Miralax (For Daily Use) -) 17 gm PO DAILY [facility] Last Admin: 11/01/17 09:34 Dose: 17 gm Pramipexole Dihydrochloride (Mirapex -) 0.5 mg PO TID [facility] Last Admin: 01/20/18 06:23 Dose: 0.5 mg Valsartan (Diovan -) 160 mg PO BID [facility] Last Admin: 11/01/17 09:31 Dose: 160 mg - Objective Vital Signs: Vital Signs Temperature 98.3 F 11/01/17 10:00 Pulse Rate 98 H 11/01/17 10:00 Respiratory Rate 18 11/01/17 10:00 Blood Pressure 160/93 11/01/17 10:00 O2 Sat by Pulse Oximetry (%) 97 10/31/17 21:00 Constitutional: Yes: Calm, Mild Distress Cardiovascular: Yes: Tachycardia Respiratory: Yes: CTA Bilaterally Gastrointestinal: Yes: Normal Bowel Sounds, Soft Musculoskeletal: Yes: Back Pain Wound/Incision: Yes: Clean/Dry Neurological: Yes: Alert, Oriented Labs: CBC, BMP 10/28/17 23:12 10/28/17 23:12 Microbiology 10/31/17 07:10 Blood - Peripheral Venous Blood Culture - Preliminary NO GROWTH OBTAINED AFTER 24 HOURS, INCUBATION TO CONTINUE FOR 4 DAYS. 10/31/17 06:40 Blood - Peripheral Venous Blood Culture - Preliminary NO GROWTH OBTAINED AFTER 24 HOURS, INCUBATION TO CONTINUE FOR 4 DAYS. - ....Imaging MRI: Report Reviewed Problem List - Problems (1) HLD (hyperlipidemia) Code(s): E78.5 - HYPERLIPIDEMIA, UNSPECIFIED (2) Intractable back pain Code(s): M54.9 - DORSALGIA, UNSPECIFIED (3) Acute renal failure Code(s): N17.9 - ACUTE KIDNEY FAILURE, UNSPECIFIED Assessment/Plan 72 yo male with history of back pain s/p 4 surgeries, b/l fusion L3-S1/ ant cervical discectomy and cervical laminectomies admitted for numbness/tingling in all extremities and severe back pain. Noted to have an L1-L2 collection. - CT guided drainage/biopsy recommended - cont. hold off antibiotics for now until done - pain control
[2017-11-01] MEDS: GABAPENTIN 300 MG CAPSULE (FP) PO SCH ×2 (14:51→21:27)
--- NOTE | 2017-11-01 17:14 | CONSULT ---
Consult Consult Specialty:: Pain Management - History of Present Illness Chief Complaint: LBP radiating to Both LEs History of Present Illness: 72 yr old male with h/o chronic LBP and Neck Pain was admitted with h/o severe back pain and leg pain, difficulty in walking and doing ADLs Pain 07/22. He has h/o lumbar fusion. Appreciate the consultation with Dr. Mendoza and Dr. Morton. Consultation asnd reports were reviewed. 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: Yes: Peripheral Neuropathy Cardio/Vascular: Yes: HTN, Hyperlipdemia Gastrointestinal: Yes: GERD Musculoskeletal: Yes: Other (Chronic rt ankle pain) Rheumatology: Yes: Gout - Past Surgical History Additional Surgical History: Lumbar Fusion and Cervical fusion - Alcohol/Substance Use Hx Alcohol Use: No History of Substance Use: reports: None - Smoking History Smoking history: Never smoked Have you smoked in the past 12 months: No - Social History ADL: Independent History of Recent Travel: No Home Medications - Allergies Allergies/Adverse Reactions: Allergies Allergy/AdvReac Type Severity Reaction Status Date / Time No Known Drug Allergies Allergy Verified 10/28/17 16:17 - Home Medications Home Medications: Ambulatory Orders Aspirin [Rachelle Chewable Aspirin] 81 mg PO DAILY 04/03/17 Celecoxib [Celebrex] 200 mg PO DAILY 04/03/17 Cyanocobalamin (Vitamin B-12) [B-12] 500 mcg PO DAILY 04/03/17 Febuxostat [Uloric -] 40 mg PO DAILY 04/03/17 Gabapentin 300 mg PO QID 04/03/17 Iron 28 mg PO DAILY 04/03/17 Methocarbamol 750 mg PO BID 04/03/17 Methotrexate Sodium [Methotrexate] 2.5 mg PO DAILY 04/03/17 Metoprolol Succinate [Toprol XL -] 50 mg PO DAILY 04/03/17 Montelukast Na [Singulair -] 10 mg PO HS 04/03/17 Omeprazole Magnesium [Prilosec] 10 mg PO DAILY 04/03/17 Valsartan [Diovan] 160 mg PO BID 04/03/17 Zolpidem Tartrate [Ambien] 10 mg PO DAILY 04/03/17 Amoxicillin/Potassium Clav [Augmentin 875-125 Tablet] 1 each PO BID #20 tablet 04/06/17 Oxycodone HCl [Oxycodone HCl ER] 10 mg PO BID 10/28/17 Oxycodone HCl/Acetaminophen [Percocet 10-325 mg Tablet] 1 each PO TID PRN Review of Systems - Review of Systems Constitutional: reports: No Symptoms Eyes: reports: No Symptoms HENT: reports: No Symptoms Neck: reports: No Symptoms Cardiovascular: reports: No Symptoms Respiratory: reports: No Symptoms Gastrointestinal: reports: No Symptoms Genitourinary: reports: No Symptoms Musculoskeletal: reports: Back Pain, Extremity Pain, Other (Numbness and tingling) Neurological: reports: No Symptoms, Parasthesia, Weakness Pain Intensity: 6 Physical Exam Vital Signs: Vital Signs Temperature 98.3 F 11/01/17 15:45 Pulse Rate 84 11/01/17 15:45 Respiratory Rate 22 11/01/17 15:45 Blood Pressure 133/79 11/01/17 15:45 O2 Sat by Pulse Oximetry (%) 97 10/31/17 21:00 Constitutional: Yes: Well Nourished Eyes: Yes: WNL HENT: Yes: WNL Neck: Yes: WNL Musculoskeletal: Yes: Back Pain, Other (Scar +) Extremities: Yes: WNL, Other (Rt ankle swelling) Edema: No Neurological: Yes: WNL, Alert, Oriented ...Motor Strength: LLE (4+/5), RLE (4/5) Labs: CBC, BMP 10/28/17 23:12 10/28/17 23:12 Imaging - Results Cat Scan: Report Reviewed MRI: Report Reviewed Problem List - Problems (1) S/P lumbar fusion Code(s): Z98.1 - ARTHRODESIS STATUS (2) Lumbar radiculopathy Code(s): M54.16 - RADICULOPATHY, LUMBAR REGION Assessment/Plan Discussed in detail with him and family members 1. continue current care and now pain is under control and medication was increased today. 2, Agree with Dr Mendoza for possible Disk Biopsy. 3. I will discuss with Dr. Reji joiner further treatment. $. I will f/u Thanks for your kind referral If any question please call me at [phone].
[2017-11-01] MEDS: MONTELUKAST NA 10 MG TABLET PO SCH (21:27)
--- NOTE | 2017-11-01 22:00 | PN ---
Progress Note, Physician History of Present Illness: No new change - Current Medication List Current Medications: Active Medications Aspirin (Asa -) 81 mg PO DAILY [facility] Last Admin: 11/01/17 09:33 Dose: 81 mg Celecoxib (Celebrex -) 200 mg PO DAILY [facility] Last Admin: 11/01/17 09:32 Dose: 200 mg Cyanocobalamin (Vitamin B12 -) 500 mcg PO DAILY [facility] Last Admin: 11/01/17 09:33 Dose: 500 mcg Febuxostat (Uloric -) 40 mg PO DAILY [facility] Last Admin: 11/01/17 09:30 Dose: 40 mg Ferrous Sulfate (Feosol -) 325 mg PO DAILY [facility] Last Admin: 11/01/17 09:30 Dose: 325 mg Gabapentin (Neurontin -) 600 mg PO TID [facility] Last Admin: 11/01/17 21:27 Dose: 600 mg Heparin Sodium (Porcine) (Heparin -) 5,000 unit SQ BID [facility] Last Admin: 11/01/17 21:27 Dose: 5,000 unit Hydromorphone HCl (Dilaudid Injection -) 1 mg IVPB Q6H PRN PRN Reason: PAIN LEVEL 6-10 Last Admin: 11/01/17 16:23 Dose: 1 mg Methocarbamol (Robaxin -) 750 mg PO BID [facility] Last Admin: 11/01/17 21:28 Dose: 750 mg Methotrexate (Mexate -) 2.5 mg PO DAILY [facility] Metoprolol Succinate (Toprol Xl -) 50 mg PO DAILY [facility] Last Admin: 11/01/17 09:31 Dose: 50 mg Montelukast Sodium (Singulair -) 10 mg PO HS [facility] Last Admin: 11/01/17 21:27 Dose: 10 mg Morphine Sulfate (Ms Contin -) 15 mg PO BID@1000,2200 [facility] Last Admin: 11/01/17 21:27 Dose: 15 mg Pantoprazole Sodium (Protonix -) 20 mg PO DAILY [facility] Last Admin: 11/01/17 09:31 Dose: 20 mg Polyethylene Glycol (Miralax (For Daily Use) -) 17 gm PO DAILY [facility] Last Admin: 11/01/17 09:34 Dose: 17 gm Pramipexole Dihydrochloride (Mirapex -) 0.5 mg PO TID [facility] Last Admin: 11/01/17 21:28 Dose: 0.5 mg Valsartan (Diovan -) 160 mg PO BID [facility] Last Admin: 11/01/17 21:27 Dose: 160 mg - Objective Vital Signs: Vital Signs Temperature 98.0 F 11/01/17 18:28 Pulse Rate 77 11/01/17 18:28 Respiratory Rate 22 11/01/17 18:28 Blood Pressure 132/77 11/01/17 18:28 O2 Sat by Pulse Oximetry (%) 97 11/01/17 09:00 HENT: Yes: WNL Neck: Yes: WNL, Supple Cardiovascular: Yes: WNL, Regular Rate and Rhythm Respiratory: Yes: WNL, Regular, CTA Bilaterally Gastrointestinal: Yes: WNL, Normal Bowel Sounds, Soft Labs: CBC, BMP 10/28/17 23:12 10/28/17 23:12 Problem List - Problems (1) Intractable back pain Code(s): M54.9 - DORSALGIA, UNSPECIFIED (2) Chronic back pain Code(s): M54.9 - DORSALGIA, UNSPECIFIED; G89.29 - OTHER CHRONIC PAIN (3) HTN (hypertension) Code(s): I10 - ESSENTIAL (PRIMARY) HYPERTENSION (4) HLD (hyperlipidemia) Code(s): E78.5 - HYPERLIPIDEMIA, UNSPECIFIED (5) Arthritis Code(s): M19.90 - UNSPECIFIED OSTEOARTHRITIS, UNSPECIFIED SITE (6) GERD (gastroesophageal reflux disease) Code(s): K21.9 - GASTRO-ESOPHAGEAL REFLUX DISEASE WITHOUT ESOPHAGITIS (7) Anemia Code(s): D64.9 - ANEMIA, UNSPECIFIED
[2017-11-02] MEDS ORDERED: ACETAMINOPHEN 1000 MG/100 ML VIAL (NON FORMULARY) IVPB ONE (03:41)
[2017-11-02] MEDS ORDERED: PT OWN MED DRAWER 7, Y5N ONE ×2 (06:13→09:41)
[2017-11-02] MEDS: HYDROmorphone HCL CARPU-JECT 2 MG/1 ML DISP.SYRIN IVPB PRN ×3 (06:46→20:28)
[2017-11-02] MEDS: PRAMIPEXOLE DIHYDROCHLORIDE 0.5 MG TABLET PO SCH ×3 (06:46→22:39)
[2017-11-02] MEDS: GABAPENTIN 300 MG CAPSULE (FP) PO SCH ×3 (06:46→22:38)
--- NOTE | 2017-11-02 09:33 | PN ---
Progress Note (short form) - Note Progress Note: NEUROSURGERY LBP and intermittent sciatica to hips Pain worse with straining/coughing Dr Pereira's consult noted PE: Tmax 98.6, AF, VSS HEENT- NC/AT; Neck- supple, incision C/D/I; Cor- RR; Lungs- CTA; Abd: benign, + BS; Ext- R ankle swelling (prior surgery); no other sign of DVT CN- intact; Motor- 4+-5 B except R DF/PF 4- ankle limited and R triceps and L DF /PF 4-4+; Sensation- decreased B feet > hand vibration; DTR- hyporeflexic ESR 11; CRP 0.4; blood culture pending Progressive L1-2 and L2-3 DDD with acute central/L paracentral and downwardly migrating L L2-3 HNP with thecal sac impingement; chronic cervical radiculopathy SCS (trial then possibly implant) discussed with pt and family and they are interested and though I have not been able to personally reach and d/w Dr Pereira DVT prophylaxis Increased neurontin to [address] guided Bx of L1-2 or L2-3 disc Any future elective spinal procedures should be deferred until infection is ruled out
[2017-11-02] MEDS: CYANOCOBALAMIN 1,000 MCG TABLET (FP) PO SCH (11:08)
[2017-11-02] MEDS: morphine SO4 SUSTAINED ACTING 15 MG TABLET.SA PO SCH ×2 (11:08→22:39)
[2017-11-02] MEDS: PANTOPRAZOLE 20 MG TABLET (FP) PO SCH (11:08)
[2017-11-02] MEDS: ASPIRIN 81 MG CHEWABLE TABLETS PO SCH (11:08)
[2017-11-02] MEDS: VALSARTAN 160 MG TABLET (UD) PO SCH ×2 (11:09→22:38)
[2017-11-02] MEDS: FERROUS SO4 325 MG TABLET (FP) PO SCH (11:09)
[2017-11-02] MEDS: METHOCARBAMOL 500 MG TABLET PO SCH (11:09)
[2017-11-02] MEDS: CELECOXIB 200 MG CAPSULE PO SCH (11:09)
[2017-11-02] MEDS: HEPARIN NA (PORCINE) 5,000 UNITS/ML 1ML VIAL SQ SCH ×2 (11:10→22:38)
[2017-11-02] MEDS: POLYETHYLENE GLYCOL 3350 119 GM BTL PO SCH (11:10)
[2017-11-02] MEDS: FEBUXOSTAT 40 MG TAB PO SCH (11:10)
--- NOTE | 2017-11-02 13:55 | PN ---
Progress Note, Physician History of Present Illness: Pt c/o lower back pain. Had difficulty sleeping last night. Remains afebrile, without any other specific complaints. - Current Medication List Current Medications: Active Medications Aspirin (Asa -) 81 mg PO DAILY [facility] Last Admin: 11/02/17 11:08 Dose: 81 mg Celecoxib (Celebrex -) 200 mg PO DAILY [facility] Last Admin: 11/02/17 11:09 Dose: 200 mg Cyanocobalamin (Vitamin B12 -) 500 mcg PO DAILY [facility] Last Admin: 11/02/17 11:08 Dose: 500 mcg Febuxostat (Uloric -) 40 mg PO DAILY [facility] Last Admin: 11/02/17 11:10 Dose: 40 mg Ferrous Sulfate (Feosol -) 325 mg PO DAILY [facility] Last Admin: 11/02/17 11:09 Dose: 325 mg Gabapentin (Neurontin -) 600 mg PO TID [facility] Last Admin: 11/02/17 06:46 Dose: 600 mg Heparin Sodium (Porcine) (Heparin -) 5,000 unit SQ BID [facility] Last Admin: 11/02/17 11:10 Dose: 5,000 unit Hydromorphone HCl (Dilaudid Injection -) 1 mg IVPB Q6H PRN PRN Reason: PAIN LEVEL 6-10 Last Admin: 11/02/17 13:18 Dose: 1 mg Methocarbamol (Robaxin -) 750 mg PO BID [facility] Last Admin: 11/02/17 11:09 Dose: 750 mg Methotrexate (Mexate -) 2.5 mg PO DAILY [facility] Metoprolol Succinate (Toprol Xl -) 50 mg PO DAILY [facility] Last Admin: 11/02/17 11:08 Dose: 50 mg Montelukast Sodium (Singulair -) 10 mg PO HS [facility] Last Admin: 11/01/17 21:27 Dose: 10 mg Morphine Sulfate (Ms Contin -) 15 mg PO BID@1000,2200 [facility] Last Admin: 11/02/17 11:08 Dose: 15 mg Pantoprazole Sodium (Protonix -) 20 mg PO DAILY [facility] Last Admin: 11/02/17 11:08 Dose: 20 mg Polyethylene Glycol (Miralax (For Daily Use) -) 17 gm PO DAILY [facility] Last Admin: 11/02/17 11:10 Dose: 17 gm Pramipexole Dihydrochloride (Mirapex -) 0.5 mg PO TID [facility] Last Admin: 11/02/17 06:46 Dose: 0.5 mg Valsartan (Diovan -) 160 mg PO BID [facility] Last Admin: 11/02/17 11:09 Dose: 160 mg - Objective Vital Signs: Vital Signs Temperature 97.7 F 11/01/17 22:00 Pulse Rate 87 11/02/17 10:00 Respiratory Rate 18 11/02/17 10:00 Blood Pressure 121/73 11/02/17 10:00 O2 Sat by Pulse Oximetry (%) 98 11/01/17 21:00 Constitutional: Yes: No Distress, Calm Cardiovascular: Yes: Regular Rate and Rhythm Respiratory: Yes: Regular Gastrointestinal: Yes: Normal Bowel Sounds, Soft Musculoskeletal: Yes: Back Pain Wound/Incision: Yes: Clean/Dry Neurological: Yes: Alert, Oriented Labs: CBC, BMP 10/28/17 23:12 10/28/17 23:12 Microbiology 10/31/17 07:10 Blood - Peripheral Venous Blood Culture - Preliminary NO GROWTH OBTAINED AFTER 48 HOURS, INCUBATION TO CONTINUE FOR 3 DAYS. 10/31/17 06:40 Blood - Peripheral Venous Blood Culture - Preliminary NO GROWTH OBTAINED AFTER 48 HOURS, INCUBATION TO CONTINUE FOR 3 DAYS. Problem List - Problems (1) HLD (hyperlipidemia) Code(s): E78.5 - HYPERLIPIDEMIA, UNSPECIFIED (2) Intractable back pain Code(s): M54.9 - DORSALGIA, UNSPECIFIED (3) Acute renal failure Code(s): N17.9 - ACUTE KIDNEY FAILURE, UNSPECIFIED Assessment/Plan 72 yo male with history of back pain s/p 4 surgeries, b/l fusion L3-S1/ ant cervical discectomy and cervical laminectomies admitted for numbness/tingling in all extremities and severe back pain. Noted to have an L1-L2 collection. - continue monitor off antibiotics at this time - recommend L1-L2 biopsy - pt afebrile, blood cultures without growth thus far, esr/crp within normal limits - needs pain control
--- NOTE | 2017-11-02 20:56 | PN ---
Progress Note, Physician History of Present Illness: No new change - Current Medication List Current Medications: Active Medications Aspirin (Asa -) 81 mg PO DAILY [facility] Last Admin: 11/02/17 11:08 Dose: 81 mg Celecoxib (Celebrex -) 200 mg PO DAILY [facility] Last Admin: 11/02/17 11:09 Dose: 200 mg Cyanocobalamin (Vitamin B12 -) 500 mcg PO DAILY [facility] Last Admin: 11/02/17 11:08 Dose: 500 mcg Febuxostat (Uloric -) 40 mg PO DAILY [facility] Last Admin: 11/02/17 11:10 Dose: 40 mg Ferrous Sulfate (Feosol -) 325 mg PO DAILY [facility] Last Admin: 11/02/17 11:09 Dose: 325 mg Gabapentin (Neurontin -) 600 mg PO TID [facility] Last Admin: 11/02/17 15:05 Dose: 600 mg Heparin Sodium (Porcine) (Heparin -) 5,000 unit SQ BID [facility] Last Admin: 11/02/17 11:10 Dose: 5,000 unit Hydromorphone HCl (Dilaudid Injection -) 1 mg IVPB Q6H PRN PRN Reason: PAIN LEVEL 6-10 Last Admin: 11/02/17 20:28 Dose: 1 mg Methocarbamol (Robaxin -) 750 mg PO BID [facility] Last Admin: 11/02/17 11:09 Dose: 750 mg Methotrexate (Mexate -) 2.5 mg PO DAILY [facility] Metoprolol Succinate (Toprol Xl -) 50 mg PO DAILY [facility] Last Admin: 11/02/17 11:08 Dose: 50 mg Montelukast Sodium (Singulair -) 10 mg PO HS [facility] Last Admin: 11/01/17 21:27 Dose: 10 mg Morphine Sulfate (Ms Contin -) 15 mg PO BID@1000,2200 [facility] Last Admin: 11/02/17 11:08 Dose: 15 mg Pantoprazole Sodium (Protonix -) 20 mg PO DAILY [facility] Last Admin: 11/02/17 11:08 Dose: 20 mg Polyethylene Glycol (Miralax (For Daily Use) -) 17 gm PO DAILY [facility] Last Admin: 11/02/17 11:10 Dose: 17 gm Pramipexole Dihydrochloride (Mirapex -) 0.5 mg PO TID [facility] Last Admin: 11/02/17 15:05 Dose: 0.5 mg Valsartan (Diovan -) 160 mg PO BID [facility] Last Admin: 11/02/17 11:09 Dose: 160 mg - Objective Vital Signs: Vital Signs Temperature 97.9 F 11/02/17 14:42 Pulse Rate 82 11/02/17 14:42 Respiratory Rate 22 11/02/17 14:42 Blood Pressure 134/67 11/02/17 14:42 O2 Sat by Pulse Oximetry (%) 98 11/02/17 09:00 HENT: Yes: WNL Neck: Yes: WNL, Supple Cardiovascular: Yes: WNL, Regular Rate and Rhythm Respiratory: Yes: WNL, Regular, CTA Bilaterally Gastrointestinal: Yes: WNL, Normal Bowel Sounds, Soft Labs: CBC, BMP 10/28/17 23:12 10/28/17 23:12 Problem List - Problems (1) Intractable back pain Assessment/Plan: Cont diluadid Neuro consult/pain management/NSG consults MRI reviewed w/ pt Will need Bone bx of LS spine by IR in am Cont diluadid/morphine/neurontin/celebrex Code(s): M54.9 - DORSALGIA, UNSPECIFIED (2) Chronic back pain Code(s): M54.9 - DORSALGIA, UNSPECIFIED; G89.29 - OTHER CHRONIC PAIN (3) HTN (hypertension) Assessment/Plan: Bp stable Code(s): I10 - ESSENTIAL (PRIMARY) HYPERTENSION (4) HLD (hyperlipidemia) Code(s): E78.5 - HYPERLIPIDEMIA, UNSPECIFIED (5) Arthritis Assessment/Plan: Cont MTX Code(s): M19.90 - UNSPECIFIED OSTEOARTHRITIS, UNSPECIFIED SITE (6) GERD (gastroesophageal reflux disease) Code(s): K21.9 - GASTRO-ESOPHAGEAL REFLUX DISEASE WITHOUT ESOPHAGITIS (7) Anemia Code(s): D64.9 - ANEMIA, UNSPECIFIED
[2017-11-02] MEDS: MONTELUKAST NA 10 MG TABLET PO SCH (22:38)
[2017-11-03] MEDS: HYDROmorphone HCL CARPU-JECT 2 MG/1 ML DISP.SYRIN IVPB PRN ×4 (02:32→20:48)
[2017-11-03] MEDS: GABAPENTIN 300 MG CAPSULE (FP) PO SCH ×3 (06:43→21:46)
[2017-11-03] MEDS: PRAMIPEXOLE DIHYDROCHLORIDE 0.5 MG TABLET PO SCH ×3 (06:43→21:46)
[2017-11-03 08:15] LABS: BASO % 0.7 % (0-2.0); EOS % 11.3 % (0-4.5); HEMATOCRIT 32.4 % (35.4-49); HEMOGLOBIN 10.8 GM/dL (11.7-16.9); LYMPH % 33.4 % (8-40); MCHC 33.4 g/dl (32.0-35.9); MEAN CELL VOLUME 101.9 fl (80-96); MEAN PLT VOLUME 6.6 fl (7.5-11.1); MONO % 12.2 % (3.8-10.2); NEUT % 42.4 % (42.8-82.8); PLATELET COUNT 384 K/MM3 (134-434); RBC 3.18 M/mm3 (4.00-5.60); RDW 14.3 % (11.9-15.9)
[2017-11-03 08:26] LABS: ALBUMIN 3.1 g/dl (3.4-5.0); ANION GAP 5 (8-16); BLOOD UREA NITROGEN 13 mg/dL (7-18); CHLORIDE 101 mmol/L (98-107); CO2 31 mmol/L (21-32); GLUCOSE,RANDOM 76 mg/dL (74-106); POTASSIUM 4.3 mmol/L (3.5-5.1); SODIUM 137 mmol/L (136-145)
[2017-11-03 08:31] LABS: ALK PHOS 66 U/L (45-117); BILIRUBIN,TOTAL 0.4 mg/dL (0.2-1.0); CREATININE 0.6 mg/dL (0.7-1.3); SGOT/AST 11 U/L (15-37); SGPT/ALT 16 U/L (12-78); TOT PROT 5.4 g/dl (6.4-8.2)
--- NOTE | 2017-11-03 08:43 | PN ---
Progress Note (short form) - Note Progress Note: NEUROSURGERY LBP and intermittent sciatica to hips Back vs leg 50-50 Pain worse with straining/coughing/getting up PE: Tmax 98.2, AF, VSS HEENT- NC/AT; Neck- supple, incision C/D/I; Cor- RR; Lungs- CTA; Abd: benign, + BS; Ext- R ankle swelling (prior surgery); no other sign of DVT CN- intact; Motor- 4+-5 B except R DF/PF 4- ankle limited and R triceps and L DF /PF 4-4+; Sensation- decreased B feet > hand vibration; DTR- hyporeflexic ESR 11; CRP 0.4; blood culture negative x 72 hours Progressive L1-2 and L2-3 DDD with acute central/L paracentral and downwardly migrating L L2-3 HNP with thecal sac impingement; chronic cervical radiculopathy SCS (trial then possibly implant) discussed with pt and family and they are interested DVT prophylaxis Increased neurontin to 600 mg tid Pain management and med regimen per Dr Pereira, who has been taking care of patient outpatient Consider CT guided Bx of L1-2 or L2-3 disc; not done as pt is on ASA Any future elective spinal procedures should be deferred until infection is ruled out Did not hear from Dr Pereira, will reach out to him again
[2017-11-03] MEDS ORDERED: PT OWN MED DRAWER 7, Y5N ONE ×2 (09:09→14:23)
[2017-11-03] MEDS: morphine SO4 SUSTAINED ACTING 15 MG TABLET.SA PO SCH ×2 (09:13→21:46)
[2017-11-03] MEDS: FERROUS SO4 325 MG TABLET (FP) PO SCH (09:13)
[2017-11-03] MEDS: CELECOXIB 200 MG CAPSULE PO SCH (09:15)
[2017-11-03] MEDS: HEPARIN NA (PORCINE) 5,000 UNITS/ML 1ML VIAL SQ SCH ×2 (09:15→22:39)
[2017-11-03] MEDS: FEBUXOSTAT 40 MG TAB PO SCH (09:15)
[2017-11-03] MEDS: CYANOCOBALAMIN 1,000 MCG TABLET (FP) PO SCH (09:15)
[2017-11-03] MEDS: PANTOPRAZOLE 20 MG TABLET (FP) PO SCH (09:15)
[2017-11-03] MEDS: VALSARTAN 160 MG TABLET (UD) PO SCH ×2 (09:15→21:46)
[2017-11-03] MEDS: POLYETHYLENE GLYCOL 3350 119 GM BTL PO SCH (09:16)
--- NOTE | 2017-11-03 13:21 | PN ---
Progress Note, Physician History of Present Illness: stable back pain awaiting biopsy - Current Medication List Current Medications: Active Medications Celecoxib (Celebrex -) 200 mg PO DAILY [facility] Last Admin: 11/03/17 09:15 Dose: 200 mg Cyanocobalamin (Vitamin B12 -) 500 mcg PO DAILY [facility] Last Admin: 11/03/17 09:15 Dose: 500 mcg Febuxostat (Uloric -) 40 mg PO DAILY [facility] Last Admin: 11/03/17 09:15 Dose: 40 mg Ferrous Sulfate (Feosol -) 325 mg PO DAILY [facility] Last Admin: 11/03/17 09:13 Dose: 325 mg Gabapentin (Neurontin -) 600 mg PO TID [facility] Last Admin: 11/03/17 06:43 Dose: 600 mg Heparin Sodium (Porcine) (Heparin -) 5,000 unit SQ BID [facility] Last Admin: 11/03/17 09:15 Dose: 5,000 unit Hydromorphone HCl (Dilaudid Injection -) 1 mg IVPB Q6H PRN PRN Reason: PAIN LEVEL 6-10 Last Admin: 11/03/17 08:31 Dose: 1 mg Methotrexate (Mexate -) 2.5 mg PO DAILY [facility] Metoprolol Succinate (Toprol Xl -) 50 mg PO DAILY [facility] Last Admin: 11/03/17 09:13 Dose: 50 mg Montelukast Sodium (Singulair -) 10 mg PO HS [facility] Last Admin: 11/02/17 22:38 Dose: 10 mg Morphine Sulfate (Ms Contin -) 15 mg PO BID@1000,2200 [facility] Last Admin: 11/03/17 09:13 Dose: 15 mg Pantoprazole Sodium (Protonix -) 20 mg PO DAILY [facility] Last Admin: 11/03/17 09:15 Dose: 20 mg Polyethylene Glycol (Miralax (For Daily Use) -) 17 gm PO DAILY [facility] Last Admin: 11/03/17 09:16 Dose: 17 gm Pramipexole Dihydrochloride (Mirapex -) 0.5 mg PO TID [facility] Last Admin: 11/03/17 06:43 Dose: 0.5 mg Valsartan (Diovan -) 160 mg PO BID [facility] Last Admin: 11/03/17 09:15 Dose: 160 mg - Objective Vital Signs: Vital Signs Temperature 98.2 F 11/03/17 09:00 Pulse Rate 83 11/03/17 09:00 Respiratory Rate 18 11/03/17 09:00 Blood Pressure 132/78 11/03/17 09:00 O2 Sat by Pulse Oximetry (%) 98 11/02/17 21:00 Constitutional: Yes: Calm, Moderate Distress Cardiovascular: Yes: Regular Rate and Rhythm Respiratory: Yes: Regular, CTA Bilaterally Gastrointestinal: Yes: Normal Bowel Sounds, Soft Musculoskeletal: Yes: Back Pain Extremities: Yes: WNL Neurological: Yes: Alert, Oriented Psychiatric: Yes: Alert, Oriented Labs: CBC, BMP 11/03/17 07:15 11/03/17 07:15 Assessment/Plan Problem List - Problems (1) Intractable back pain Code(s): M54.9 - DORSALGIA, UNSPECIFIED (2) Chronic back pain Code(s): M54.9 - DORSALGIA, UNSPECIFIED; G89.29 - OTHER CHRONIC PAIN (3) HTN (hypertension) Assessment/Plan: Bp stable Code(s): I10 - ESSENTIAL (PRIMARY) HYPERTENSION (4) HLD (hyperlipidemia) Code(s): E78.5 - HYPERLIPIDEMIA, UNSPECIFIED (5) Arthritis Code(s): M19.90 - UNSPECIFIED OSTEOARTHRITIS, UNSPECIFIED SITE (6) GERD (gastroesophageal reflux disease) Code(s): K21.9 - GASTRO-ESOPHAGEAL REFLUX DISEASE WITHOUT ESOPHAGITIS (7) Anemia Code(s): D64.9 - ANEMIA, UNSPECIFIED plan await for biopsy rest continue current meds no abx at this time rest as per primary
--- NOTE | 2017-11-03 13:26 | CONS ---
DATE OF CONSULTATION: 11/03/2017 HISTORY OF PRESENT ILLNESS: The patient is a 72-year-old man with an extensive past medical history, which includes multiple surgeries on the lumbar spine as well as cervical fusion who was admitted with back pain radiating into both lower extremities with inability to ambulate as well as numbness of the left hand and neck pain. The patient has undergone multiple MRIs including MRI of the lumbar spine, which showed multilevel degenerative disk disease with left paracentral disk, [id number] stenosis at L3 possibly due to L2-L3 disk extrusion and scar tissue, infectious process being ruled out, but he has a normal CRP of 0.4. The patient also had an MRI of the cervical spine, which showed screws at C2-C7, bilateral laminectomies C3-C7, and possible left central C6-C7 disk herniation. The patient is on multiple pain medications and apparently is being evaluated for possible spinal cord stimulator with Dr. Elvis Pereira; however, all intervention has been put on hold while an infectious process is ruled out, and he may undergo a biopsy of a mass that, again, may represent scar tissue, but infectious process could not be ruled out. Medications include subcutaneous heparin. He is also on Neurontin 600 mg 3 times a day, Celebrex, MS Contin, and other pain medication. The patient also complains of numbness and tingling in the left hand. He states he has a history of a right carpal tunnel release, and the left hand does awaken him at night. PAST MEDICAL HISTORY: Significant for hypertension, hyperlipidemia, prostate cancer, gastroesophageal reflux disease, gout, rheumatoid arthritis, polyneuropathy, chronic low back pain. PAST SURGICAL HISTORY: Cervical laminectomy fusion area multiple surgeries on the lumbar spine and right carpal tunnel release. SOCIAL HISTORY: States he lives with his in an apartment but he has 3 levels of stairs to enter. Premorbidly, he was using a straight cane but states his legs buckle on him at times. REVIEW OF SYSTEMS: No headache, no lightheadedness or dizziness, no blurry vision or double vision, no nausea or vomiting, difficulty swallowing, difficulty chewing. No chest pain or shortness of breath. Again, he has numbness of the left hand with pain in the left hand. Also, neck discomfort less than the right upper extremity but pain radiating from his back down both lower extremities. Weakness of the distal right more than left lower limb and buckling in the legs with standing and ambulating. Some numbness. No skin rash. No fever or chills. No weight loss or weight gain. PHYSICAL EXAMINATION: General: A tall man lying on a stretcher. He is in obvious discomfort. He has difficulty turning even side to side on the stretcher but is comfortable lying flat or once he gets into a position. He is awake, alert, and cooperative. HEENT: Normocephalic and atraumatic. His extraocular muscles appear intact. Neck: Supple. Extremities: Without any pitting edema on the left. Over the right lower extremity, has significant soft tissue swelling and deformity in the right ankle with scars from prior surgery. He has no significant calf tenderness. Neuromuscular: He is awake, alert, and oriented x3. Cranial nerves 2-12 are grossly intact. He has fairly good range and strength in the upper extremities except for his thenar muscles, which are weak in the left more than the right lower extremity and diminished sensation more than a median nerve distribution. Symmetric reflexes in the lower extremities. He has right more than left dorsiflexor weakness. He has proximal weakness in both lower extremities, diminished sensation throughout the lower extremities including L4-S1 dermatomes, absent reflexes, which could be positional, severe tenderness and spasm in the lower thoracic and lumbosacral paraspinal musculature. Results of EMG nerve conduction study, please refer to report for details. OVERALL IMPRESSION: 1. Limited study due to soft tissue edema and deformity of the right lower extremity especially nerve conduction studies of the right lower extremity sensory. 2. 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 Unable to confirm with lumbosacral paraspinal musculature due to history of multiple lumbar procedures will always show denervation. 3. Left moderate carpal tunnel syndrome. 4. No definite polyneuropathy with normal left neurosensory study. 5. No recorded conduction in the right superficial perineal or sural nerve, which again, could be related to edema. 6. Lumbar stenosis. 7. History of multiple lumbar surgeries. 8. Rule out infectious process for scar tissue. Biopsy pending of the lumbar spine. 9. History of cervical fusion and left central C6-C7 disk herniation. 10. Other past medical history as noted above. PLAN/SUGGESTION: 1. Follow up with surgery regarding biopsy. 2. Follow up with pain management and Infectious Disease. 3. Mobilization when able. 4. Consider left cock-up wrist splint at night. 5. Pain management medication to continue. 6. Agree with subcutaneous heparin for DVT prophylaxis until more mobile. 7. Bowel regimen. Monitor for constipation. 8. Will need inpatient rehabilitation. He has 3 flights of stairs to get into his apartment. Thank you for this consultation. DONNY JIMENEZ M.D. [id number]
--- NOTE | 2017-11-03 21:43 | PN ---
Progress Note, Physician History of Present Illness: No new change - Current Medication List Current Medications: Active Medications Celecoxib (Celebrex -) 200 mg PO DAILY [facility] Last Admin: 11/03/17 09:15 Dose: 200 mg Cyanocobalamin (Vitamin B12 -) 500 mcg PO DAILY [facility] Last Admin: 11/03/17 09:15 Dose: 500 mcg Febuxostat (Uloric -) 40 mg PO DAILY [facility] Last Admin: 11/03/17 09:15 Dose: 40 mg Ferrous Sulfate (Feosol -) 325 mg PO DAILY [facility] Last Admin: 11/03/17 09:13 Dose: 325 mg Gabapentin (Neurontin -) 600 mg PO TID [facility] Last Admin: 11/03/17 14:25 Dose: 600 mg Heparin Sodium (Porcine) (Heparin -) 5,000 unit SQ BID [facility] Last Admin: 11/03/17 09:15 Dose: 5,000 unit Hydromorphone HCl (Dilaudid Injection -) 1 mg IVPB Q6H PRN PRN Reason: PAIN LEVEL 6-10 Last Admin: 11/03/17 20:48 Dose: 1 mg Methotrexate (Mexate -) 2.5 mg PO DAILY [facility] Metoprolol Succinate (Toprol Xl -) 50 mg PO DAILY [facility] Last Admin: 11/03/17 09:13 Dose: 50 mg Montelukast Sodium (Singulair -) 10 mg PO HS [facility] Last Admin: 11/02/17 22:38 Dose: 10 mg Morphine Sulfate (Ms Contin -) 15 mg PO BID@1000,2200 [facility] Last Admin: 11/03/17 09:13 Dose: 15 mg Pantoprazole Sodium (Protonix -) 20 mg PO DAILY [facility] Last Admin: 11/03/17 09:15 Dose: 20 mg Polyethylene Glycol (Miralax (For Daily Use) -) 17 gm PO DAILY [facility] Last Admin: 11/03/17 09:16 Dose: 17 gm Pramipexole Dihydrochloride (Mirapex -) 0.5 mg PO TID [facility] Last Admin: 11/03/17 14:25 Dose: 0.5 mg Valsartan (Diovan -) 160 mg PO BID [facility] Last Admin: 11/03/17 09:15 Dose: 160 mg - Objective Vital Signs: Vital Signs Temperature 97.5 F L 11/03/17 20:56 Pulse Rate 82 11/03/17 20:56 Respiratory Rate 18 11/03/17 20:56 Blood Pressure 145/77 11/03/17 20:56 O2 Sat by Pulse Oximetry (%) 98 11/03/17 09:00 Constitutional: Yes: Well Nourished HENT: Yes: WNL Neck: Yes: WNL, Supple Cardiovascular: Yes: WNL, Regular Rate and Rhythm Respiratory: Yes: WNL, Regular, CTA Bilaterally Gastrointestinal: Yes: WNL, Normal Bowel Sounds, Soft Edema: No Labs: CBC, BMP 11/03/17 07:15 11/03/17 07:15 Problem List - Problems (1) Intractable back pain Assessment/Plan: Neuro consult/pain management/NSG consults MRI reviewed w/ pt Bone bx of LS spine by IR unable to be done due to asa ASA was dc'ed Cont diluadid/morphine/neurontin/celebrex PT eval Code(s): M54.9 - DORSALGIA, UNSPECIFIED (2) Chronic back pain Code(s): M54.9 - DORSALGIA, UNSPECIFIED; G89.29 - OTHER CHRONIC PAIN (3) HTN (hypertension) Assessment/Plan: BP stable Cont toprol/diovan Code(s): I10 - ESSENTIAL (PRIMARY) HYPERTENSION (4) Arthritis Assessment/Plan: Cont MTX Code(s): M19.90 - UNSPECIFIED OSTEOARTHRITIS, UNSPECIFIED SITE (5) GERD (gastroesophageal reflux disease) Assessment/Plan: Cont protonix Code(s): K21.9 - GASTRO-ESOPHAGEAL REFLUX DISEASE WITHOUT ESOPHAGITIS (6) Anemia Assessment/Plan: Cont FeSo4 Code(s): D64.9 - ANEMIA, UNSPECIFIED (7) HLD (hyperlipidemia) Code(s): E78.5 - HYPERLIPIDEMIA, UNSPECIFIED
[2017-11-03] MEDS: MONTELUKAST NA 10 MG TABLET PO SCH (21:46)
[2017-11-04] MEDS: HYDROmorphone HCL CARPU-JECT 2 MG/1 ML DISP.SYRIN IVPB PRN ×5 (02:58→23:49)
[2017-11-04] MEDS: GABAPENTIN 300 MG CAPSULE (FP) PO SCH ×3 (05:48→21:32)
[2017-11-04] MEDS: PRAMIPEXOLE DIHYDROCHLORIDE 0.5 MG TABLET PO SCH (05:48)
--- NOTE | 2017-11-04 08:18 | PN ---
Progress Note (short form) - Note Progress Note: NEUROSURGERY LBP and intermittent sciatica to hips Back vs leg 50-50 c/o pain and could not sleep well PE: Tmax 98.9, AF, VSS HEENT- NC/AT; Neck- supple, incision C/D/I; Cor- RR; Lungs- CTA; Abd: benign, + BS; Ext- R ankle swelling (prior surgery); no other sign of DVT CN- intact; Motor- 4+-5 B except R DF/PF 4- ankle limited and R triceps and L DF /PF 4-4+; Sensation- decreased B feet > hand vibration; DTR- hyporeflexic ESR 11; CRP 0.4; blood culture negative x 96 hours Progressive L1-2 and L2-3 DDD with acute central/L paracentral and downwardly migrating L L2-3 HNP with thecal sac impingement; chronic cervical radiculopathy SCS (trial then possibly implant) discussed with pt and family previously DVT prophylaxis Dilaudid prn Bowel regimen Pain management and med regimen per Dr Pereira, who has been taking care of patient previously Consider CT guided Bx of L1-2 or L2-3 disc; not done as pt was on ASA (d/c'd) Any future elective spinal procedures should be deferred until infection is ruled out
[2017-11-04] MEDS ORDERED: PT OWN MED DRAWER 7, Y5N ONE ×2 (11:25→21:27)
[2017-11-04] MEDS: morphine SO4 SUSTAINED ACTING 15 MG TABLET.SA PO SCH (11:35)
[2017-11-04] MEDS: CYANOCOBALAMIN 1,000 MCG TABLET (FP) PO SCH (11:35)
[2017-11-04] MEDS: VALSARTAN 160 MG TABLET (UD) PO SCH ×2 (11:35→21:32)
[2017-11-04] MEDS: FERROUS SO4 325 MG TABLET (FP) PO SCH (11:35)
[2017-11-04] MEDS: PANTOPRAZOLE 20 MG TABLET (FP) PO SCH (11:36)
[2017-11-04] MEDS: FEBUXOSTAT 40 MG TAB PO SCH (11:36)
[2017-11-04] MEDS: POLYETHYLENE GLYCOL 3350 119 GM BTL PO SCH (11:36)
[2017-11-04] MEDS: CELECOXIB 200 MG CAPSULE PO SCH (11:37)
--- NOTE | 2017-11-04 14:10 | PN ---
Progress Note, Physician History of Present Illness: patient doing well no new issues pain still main issues working with physio - Current Medication List Current Medications: Active Medications Celecoxib (Celebrex -) 200 mg PO DAILY [facility] Last Admin: 11/04/17 11:37 Dose: 200 mg Cyanocobalamin (Vitamin B12 -) 500 mcg PO DAILY [facility] Last Admin: 11/04/17 11:35 Dose: 500 mcg Docusate Sodium (Colace -) 100 mg PO TID [facility] Febuxostat (Uloric -) 40 mg PO DAILY [facility] Last Admin: 11/04/17 11:36 Dose: 40 mg Ferrous Sulfate (Feosol -) 325 mg PO DAILY [facility] Last Admin: 11/04/17 11:35 Dose: 325 mg Gabapentin (Neurontin -) 600 mg PO TID [facility] Last Admin: 11/04/17 05:48 Dose: Not Given Heparin Sodium (Porcine) (Heparin -) 5,000 unit SQ BID [facility] Last Admin: 11/03/17 22:39 Dose: 5,000 unit Hydromorphone HCl (Dilaudid Injection -) 1 mg IVPB Q4H PRN PRN Reason: PAIN LEVEL 7 - 10 Last Admin: 11/04/17 08:59 Dose: 1 mg Methotrexate (Mexate -) 2.5 mg PO DAILY [facility] Metoprolol Succinate (Toprol Xl -) 50 mg PO DAILY [facility] Last Admin: 11/04/17 11:36 Dose: 50 mg Montelukast Sodium (Singulair -) 10 mg PO HS [facility] Last Admin: 11/03/17 21:46 Dose: 10 mg Morphine Sulfate (Ms Contin -) 15 mg PO BID@1000,2200 [facility] Last Admin: 11/04/17 11:35 Dose: 15 mg Pantoprazole Sodium (Protonix -) 20 mg PO DAILY [facility] Last Admin: 11/04/17 11:36 Dose: 20 mg Polyethylene Glycol (Miralax (For Daily Use) -) 17 gm PO DAILY [facility] Last Admin: 11/04/17 11:36 Dose: 17 gm Pramipexole Dihydrochloride (Mirapex -) 0.5 mg PO TID [facility] Valsartan (Diovan -) 160 mg PO BID [facility] Last Admin: 11/04/17 11:35 Dose: 160 mg - Objective Vital Signs: Vital Signs Temperature 98 F 11/04/17 11:59 Pulse Rate 91 H 11/04/17 11:59 Respiratory Rate 18 11/04/17 11:59 Blood Pressure 140/72 11/04/17 11:59 O2 Sat by Pulse Oximetry (%) 98 11/03/17 21:00 Constitutional: Yes: Calm, Moderate Distress Cardiovascular: Yes: Regular Rate and Rhythm Respiratory: Yes: Regular, CTA Bilaterally Gastrointestinal: Yes: Normal Bowel Sounds, Soft Musculoskeletal: Yes: Other Extremities: Yes: Other Neurological: Yes: Alert, Oriented Psychiatric: Yes: Alert, Oriented Labs: CBC, BMP 11/03/17 07:15 11/03/17 07:15 Assessment/Plan Problem List - Problems (1) Intractable back pain Code(s): M54.9 - DORSALGIA, UNSPECIFIED (2) Chronic back pain Code(s): M54.9 - DORSALGIA, UNSPECIFIED; G89.29 - OTHER CHRONIC PAIN (3) HTN (hypertension) Assessment/Plan: Bp stable Code(s): I10 - ESSENTIAL (PRIMARY) HYPERTENSION (4) HLD (hyperlipidemia) Code(s): E78.5 - HYPERLIPIDEMIA, UNSPECIFIED (5) Arthritis Code(s): M19.90 - UNSPECIFIED OSTEOARTHRITIS, UNSPECIFIED SITE (6) GERD (gastroesophageal reflux disease) Code(s): K21.9 - GASTRO-ESOPHAGEAL REFLUX DISEASE WITHOUT ESOPHAGITIS (7) Anemia Code(s): D64.9 - ANEMIA, UNSPECIFIED plan await for biopsy rest continue current meds no abx at this time rest as per primary
[2017-11-04] MEDS: DOCUSATE SODIUM 100 MG CAPSULE (FP) PO SCH ×2 (14:27→21:32)
[2017-11-04] MEDS: PRAMIPEXOLE DIHYDROCHLORIDE 0.25 MG TABLET PO SCH ×2 (14:27→23:30)
[2017-11-04] MEDS: MONTELUKAST NA 10 MG TABLET PO SCH (21:31)
[2017-11-04] MEDS: morphine SO4 SUSTAINED ACTING 30 MG TABLET.SA PO SCH (21:32)
--- NOTE | 2017-11-04 23:06 | PN ---
Progress Note, Physician - Current Medication List Current Medications: Active Medications Celecoxib (Celebrex -) 200 mg PO DAILY [facility] Last Admin: 11/04/17 11:37 Dose: 200 mg Cyanocobalamin (Vitamin B12 -) 500 mcg PO DAILY [facility] Last Admin: 11/04/17 11:35 Dose: 500 mcg Docusate Sodium (Colace -) 100 mg PO TID [facility] Last Admin: 11/04/17 21:32 Dose: 100 mg Febuxostat (Uloric -) 40 mg PO DAILY [facility] Last Admin: 11/04/17 11:36 Dose: 40 mg Ferrous Sulfate (Feosol -) 325 mg PO DAILY [facility] Last Admin: 11/04/17 11:35 Dose: 325 mg Gabapentin (Neurontin -) 600 mg PO TID [facility] Last Admin: 11/04/17 21:32 Dose: 600 mg Heparin Sodium (Porcine) (Heparin -) 5,000 unit SQ BID [facility] Last Admin: 11/03/17 22:39 Dose: 5,000 unit Hydromorphone HCl (Dilaudid Injection -) 1 mg IVPB Q4H PRN PRN Reason: PAIN LEVEL 7 - 10 Last Admin: 11/04/17 19:04 Dose: 1 mg Methotrexate (Mexate -) 2.5 mg PO DAILY [facility] Metoprolol Succinate (Toprol Xl -) 50 mg PO DAILY [facility] Last Admin: 11/04/17 11:36 Dose: 50 mg Montelukast Sodium (Singulair -) 10 mg PO HS [facility] Last Admin: 11/03/17 21:46 Dose: 10 mg Morphine Sulfate (Ms Contin -) 30 mg PO BID@1000,2200 [facility] Last Admin: 11/04/17 21:32 Dose: 30 mg Pantoprazole Sodium (Protonix -) 20 mg PO DAILY [facility] Last Admin: 11/04/17 11:36 Dose: 20 mg Polyethylene Glycol (Miralax (For Daily Use) -) 17 gm PO DAILY [facility] Last Admin: 11/04/17 11:36 Dose: 17 gm Pramipexole Dihydrochloride (Mirapex -) 0.5 mg PO TID [facility] Valsartan (Diovan -) 160 mg PO BID [facility] Last Admin: 11/04/17 21:32 Dose: 160 mg - Objective Vital Signs: Vital Signs Temperature 98.1 F 11/04/17 19:42 Pulse Rate 78 11/04/17 19:42 Respiratory Rate 20 11/04/17 19:42 Blood Pressure 131/73 11/04/17 19:42 O2 Sat by Pulse Oximetry (%) 98 11/04/17 09:00 Labs: CBC, BMP 11/03/17 07:15 11/03/17 07:15 Problem List - Problems (1) Intractable back pain Code(s): M54.9 - DORSALGIA, UNSPECIFIED (2) Chronic back pain Code(s): M54.9 - DORSALGIA, UNSPECIFIED; G89.29 - OTHER CHRONIC PAIN (3) HTN (hypertension) Code(s): I10 - ESSENTIAL (PRIMARY) HYPERTENSION (4) Arthritis Code(s): M19.90 - UNSPECIFIED OSTEOARTHRITIS, UNSPECIFIED SITE (5) GERD (gastroesophageal reflux disease) Code(s): K21.9 - GASTRO-ESOPHAGEAL REFLUX DISEASE WITHOUT ESOPHAGITIS (6) Anemia Code(s): D64.9 - ANEMIA, UNSPECIFIED (7) HLD (hyperlipidemia) Code(s): E78.5 - HYPERLIPIDEMIA, UNSPECIFIED
[2017-11-05] MEDS: HYDROmorphone HCL CARPU-JECT 2 MG/1 ML DISP.SYRIN IVPB PRN ×2 (04:00→14:49)
[2017-11-05] MEDS: PRAMIPEXOLE DIHYDROCHLORIDE 0.5 MG TABLET PO SCH ×3 (05:56→21:51)
[2017-11-05] MEDS: DOCUSATE SODIUM 100 MG CAPSULE (FP) PO SCH ×3 (05:56→21:51)
[2017-11-05] MEDS: GABAPENTIN 300 MG CAPSULE (FP) PO SCH ×3 (05:56→21:51)
[2017-11-05] MEDS ORDERED: PT OWN MED DRAWER 7, Y5N ONE ×3 (09:32→21:05)
[2017-11-05] MEDS: FERROUS SO4 325 MG TABLET (FP) PO SCH (09:35)
[2017-11-05] MEDS: CYANOCOBALAMIN 1,000 MCG TABLET (FP) PO SCH (09:35)
[2017-11-05] MEDS: VALSARTAN 160 MG TABLET (UD) PO SCH ×2 (09:36→21:51)
[2017-11-05] MEDS: morphine SO4 SUSTAINED ACTING 30 MG TABLET.SA PO SCH ×2 (09:36→21:51)
[2017-11-05] MEDS: PANTOPRAZOLE 20 MG TABLET (FP) PO SCH (09:38)
[2017-11-05] MEDS: CELECOXIB 200 MG CAPSULE PO SCH (09:39)
[2017-11-05] MEDS: FEBUXOSTAT 40 MG TAB PO SCH (09:39)
--- NOTE | 2017-11-05 10:08 | PN ---
Progress Note (short form) - Note Progress Note: NEUROSURGERY LBP and intermittent sciatica to B hips Resting comfortably right now Bx not done and rationale for bx d/w Dr Kvein yesterday again PE: Tmax 98.2, AF, VSS HEENT- NC/AT; Neck- supple, incision C/D/I; Cor- RR; Lungs- CTA; Abd: benign, + BS; Ext- R ankle swelling (prior surgery); no other sign of DVT CN- intact; Motor- 4+-5 B except R DF/PF 4- ankle limited and R triceps and L DF /PF 4-4+; Sensation- decreased B feet > hand vibration; DTR- hyporeflexic Blood culture negative x 5 days Progressive L1-2 and L2-3 DDD with acute central/L paracentral and downwardly migrating L L2-3 HNP with thecal sac impingement; chronic cervical radiculopathy SCS (trial then possibly implant) discussed with Dr Pereira, who is willing to do the trial DVT prophylaxis/SCD's if if SQ heparin Dilaudid prn Bowel regimen Pain management and med regimen per Dr Pereira, who has been taking care of patient previously Consider CT guided Bx of L1-2 or L2-3 disc given T2 hyperintensity, endplate sclerosis and increased epidural enhancement L2-3; not done yet
[2017-11-05] MEDS: POLYETHYLENE GLYCOL 3350 119 GM BTL PO SCH (11:29)
--- NOTE | 2017-11-05 14:43 | PN ---
Progress Note, Physician History of Present Illness: stable no new issues except pain - Current Medication List Current Medications: Active Medications Celecoxib (Celebrex -) 200 mg PO DAILY [facility] Last Admin: 11/05/17 09:39 Dose: 200 mg Cyanocobalamin (Vitamin B12 -) 500 mcg PO DAILY [facility] Last Admin: 11/05/17 09:35 Dose: 500 mcg Docusate Sodium (Colace -) 100 mg PO TID [facility] Last Admin: 11/05/17 05:56 Dose: 100 mg Febuxostat (Uloric -) 40 mg PO DAILY [facility] Last Admin: 11/05/17 09:39 Dose: 40 mg Ferrous Sulfate (Feosol -) 325 mg PO DAILY [facility] Last Admin: 11/05/17 09:35 Dose: 325 mg Gabapentin (Neurontin -) 600 mg PO TID [facility] Last Admin: 11/05/17 05:56 Dose: 600 mg Heparin Sodium (Porcine) (Heparin -) 5,000 unit SQ BID [facility] Last Admin: 11/03/17 22:39 Dose: 5,000 unit Hydromorphone HCl (Dilaudid Injection -) 1 mg IVPB Q4H PRN PRN Reason: PAIN LEVEL 7 - 10 Last Admin: 11/05/17 04:00 Dose: 1 mg Methotrexate (Mexate -) 2.5 mg PO DAILY [facility] Metoprolol Succinate (Toprol Xl -) 50 mg PO DAILY [facility] Last Admin: 11/05/17 09:37 Dose: 50 mg Montelukast Sodium (Singulair -) 10 mg PO HS [facility] Last Admin: 11/04/17 21:31 Dose: 10 mg Morphine Sulfate (Ms Contin -) 30 mg PO BID@1000,2200 [facility] Last Admin: 11/05/17 09:36 Dose: 30 mg Pantoprazole Sodium (Protonix -) 20 mg PO DAILY [facility] Last Admin: 11/05/17 09:38 Dose: 20 mg Polyethylene Glycol (Miralax (For Daily Use) -) 17 gm PO DAILY [facility] Last Admin: 11/05/17 11:29 Dose: 17 gm Pramipexole Dihydrochloride (Mirapex -) 0.5 mg PO TID [facility] Last Admin: 11/05/17 05:56 Dose: 0.5 mg Valsartan (Diovan -) 160 mg PO BID [facility] Last Admin: 11/05/17 09:36 Dose: 160 mg - Objective Vital Signs: Vital Signs Temperature 97.3 F L 11/05/17 10:00 Pulse Rate 78 11/05/17 10:00 Respiratory Rate 20 11/05/17 10:00 Blood Pressure 114/70 11/05/17 10:00 O2 Sat by Pulse Oximetry (%) 98 11/04/17 09:00 Constitutional: Yes: Calm, Mild Distress, Obese HENT: Yes: Atraumatic Neck: Yes: Supple, Trachea Midline Cardiovascular: Yes: Regular Rate and Rhythm Respiratory: Yes: Regular, CTA Bilaterally Gastrointestinal: Yes: Normal Bowel Sounds, Soft Musculoskeletal: Yes: WNL Extremities: Yes: WNL Neurological: Yes: Alert, Oriented Psychiatric: Yes: Alert, Oriented Labs: CBC, BMP 11/03/17 07:15 11/03/17 07:15 Assessment/Plan Problem List - Problems (1) Intractable back pain Code(s): M54.9 - DORSALGIA, UNSPECIFIED (2) Chronic back pain Code(s): M54.9 - DORSALGIA, UNSPECIFIED; G89.29 - OTHER CHRONIC PAIN (3) HTN (hypertension) Assessment/Plan: Bp stable Code(s): I10 - ESSENTIAL (PRIMARY) HYPERTENSION (4) HLD (hyperlipidemia) Code(s): E78.5 - HYPERLIPIDEMIA, UNSPECIFIED (5) Arthritis Code(s): M19.90 - UNSPECIFIED OSTEOARTHRITIS, UNSPECIFIED SITE (6) GERD (gastroesophageal reflux disease) Code(s): K21.9 - GASTRO-ESOPHAGEAL REFLUX DISEASE WITHOUT ESOPHAGITIS (7) Anemia Code(s): D64.9 - ANEMIA, UNSPECIFIED plan still awaiting for final plan rest continue current mgmt pain mgmt as per other teams
--- NOTE | 2017-11-05 19:00 | PN ---
Progress Note (short form) - Note Progress Note: NEUROLOGY FOLLOW-UP: Events reviewed, Pt. examined. Dr. Laura's consultation and electrophysiology reviewed and greatly appreciated : -EMG shows active polyradiculopathy involving at least B/L L5 and S1 roots and probably B/L L4 as well. -NCS show NO evidence for peripheral neuropathy. No evidence to support discitis or infection: ESR=11 mm/hr. No leukocytosis. Pt. afebrile. Pt notes persistent urinary incontinence and one bout of fecal incontinence today. He notes his "knees buckled" trying to get to toilet. EXAM: More comfortable at rest. Ankle Dorsiflexion 4-/5 on right and 4/5 on left. Areflexic in the legs. Decreased Vibration to the knees. Romberg + Unsteady, wide-based, steppage, footdrop. 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 Etiology most likely severe LS spinal stenosis due to large L2L3 Herniated disc. SUGGEST: Laminectomy, exploration and partial discectomy (removal of disc fragment). If Pt is high-risk, would transfer to [facility] if Dr. Mendoza agrees. Thank you very much, Andry Morton MD
[2017-11-05] MEDS: MONTELUKAST NA 10 MG TABLET PO SCH (21:51)
[2017-11-05] MEDS: HEPARIN NA (PORCINE) 5,000 UNITS/ML 1ML VIAL SQ SCH (21:51)
--- NOTE | 2017-11-05 22:24 | PN ---
Progress Note, Physician History of Present Illness: Pt resting comfortably - Current Medication List Current Medications: Active Medications Celecoxib (Celebrex -) 200 mg PO DAILY [facility] Last Admin: 11/05/17 09:39 Dose: 200 mg Cyanocobalamin (Vitamin B12 -) 500 mcg PO DAILY [facility] Last Admin: 11/05/17 09:35 Dose: 500 mcg Docusate Sodium (Colace -) 100 mg PO TID [facility] Last Admin: 11/05/17 21:51 Dose: 100 mg Febuxostat (Uloric -) 40 mg PO DAILY [facility] Last Admin: 11/05/17 09:39 Dose: 40 mg Ferrous Sulfate (Feosol -) 325 mg PO DAILY [facility] Last Admin: 11/05/17 09:35 Dose: 325 mg Gabapentin (Neurontin -) 600 mg PO TID [facility] Last Admin: 11/05/17 21:51 Dose: 600 mg Heparin Sodium (Porcine) (Heparin -) 5,000 unit SQ BID [facility] Last Admin: 11/05/17 21:51 Dose: 5,000 unit Hydromorphone HCl (Dilaudid Injection -) 1 mg IVPB Q4H PRN PRN Reason: PAIN LEVEL 7 - 10 Last Admin: 11/05/17 14:49 Dose: 1 mg Methotrexate (Mexate -) 2.5 mg PO DAILY [facility] Metoprolol Succinate (Toprol Xl -) 50 mg PO DAILY [facility] Last Admin: 11/05/17 09:37 Dose: 50 mg Montelukast Sodium (Singulair -) 10 mg PO HS [facility] Last Admin: 11/05/17 21:51 Dose: 10 mg Morphine Sulfate (Ms Contin -) 30 mg PO BID@1000,2200 [facility] Last Admin: 11/05/17 21:51 Dose: 30 mg Pantoprazole Sodium (Protonix -) 20 mg PO DAILY [facility] Last Admin: 11/05/17 09:38 Dose: 20 mg Polyethylene Glycol (Miralax (For Daily Use) -) 17 gm PO DAILY [facility] Last Admin: 11/05/17 11:29 Dose: 17 gm Pramipexole Dihydrochloride (Mirapex -) 0.5 mg PO TID [facility] Last Admin: 11/05/17 21:51 Dose: 0.5 mg Valsartan (Diovan -) 160 mg PO BID [facility] Last Admin: 11/05/17 21:51 Dose: 160 mg - Objective Vital Signs: Vital Signs Temperature 97.7 F 11/05/17 19:00 Pulse Rate 75 11/05/17 19:00 Respiratory Rate 20 11/05/17 19:00 Blood Pressure 127/72 11/05/17 19:00 O2 Sat by Pulse Oximetry (%) 98 11/04/17 09:00 Neck: Yes: WNL, Supple Cardiovascular: Yes: WNL, Regular Rate and Rhythm Respiratory: Yes: WNL, Regular, CTA Bilaterally Gastrointestinal: Yes: WNL, Normal Bowel Sounds, Soft Labs: CBC, BMP 11/03/17 07:15 11/03/17 07:15 Problem List - Problems (1) Intractable back pain Assessment/Plan: Neuro consult/pain management/NSG consults Neuro recommendations noted and spoke to pt for who is agreesble for transfer Await final recommendations from NSG MRI reviewed w/ pt Bone bx of LS spine is unable to be done as per IR? Cont diluadid/morphine/neurontin/celebrex Will decrease dilaudid due to pt's fatigue Code(s): M54.9 - DORSALGIA, UNSPECIFIED (2) Chronic back pain Code(s): M54.9 - DORSALGIA, UNSPECIFIED; G89.29 - OTHER CHRONIC PAIN (3) HTN (hypertension) Code(s): I10 - ESSENTIAL (PRIMARY) HYPERTENSION (4) Arthritis Code(s): M19.90 - UNSPECIFIED OSTEOARTHRITIS, UNSPECIFIED SITE (5) GERD (gastroesophageal reflux disease) Code(s): K21.9 - GASTRO-ESOPHAGEAL REFLUX DISEASE WITHOUT ESOPHAGITIS (6) Anemia Code(s): D64.9 - ANEMIA, UNSPECIFIED (7) HLD (hyperlipidemia) Code(s): E78.5 - HYPERLIPIDEMIA, UNSPECIFIED
[2017-11-06] MEDS: HYDROmorphone HCL CARPU-JECT 2 MG/1 ML DISP.SYRIN IVPB PRN (00:14)
[2017-11-06] MEDS: HYDROmorphone HCL CARPU-JECT 1 MG/1 ML DISP.SYRIN IVPB PRN ×3 (04:14→16:18)
[2017-11-06] MEDS: GABAPENTIN 300 MG CAPSULE (FP) PO SCH ×2 (06:47→13:47)
[2017-11-06] MEDS: DOCUSATE SODIUM 100 MG CAPSULE (FP) PO SCH ×2 (06:47→13:46)
[2017-11-06] MEDS: PRAMIPEXOLE DIHYDROCHLORIDE 0.5 MG TABLET PO SCH ×2 (06:47→13:46)
[2017-11-06] MEDS ORDERED: PT OWN MED DRAWER 7, Y5N ONE ×2 (09:26→09:36)
[2017-11-06] MEDS: morphine SO4 SUSTAINED ACTING 30 MG TABLET.SA PO SCH (09:33)
[2017-11-06] MEDS: VALSARTAN 160 MG TABLET (UD) PO SCH (09:34)
[2017-11-06] MEDS: CYANOCOBALAMIN 1,000 MCG TABLET (FP) PO SCH (09:34)
[2017-11-06] MEDS: PANTOPRAZOLE 20 MG TABLET (FP) PO SCH (09:34)
[2017-11-06] MEDS: FERROUS SO4 325 MG TABLET (FP) PO SCH (09:34)
[2017-11-06] MEDS: HEPARIN NA (PORCINE) 5,000 UNITS/ML 1ML VIAL SQ SCH (09:35)
[2017-11-06] MEDS: POLYETHYLENE GLYCOL 3350 119 GM BTL PO SCH (09:35)
[2017-11-06] MEDS: CELECOXIB 200 MG CAPSULE PO SCH (09:37)
[2017-11-06] MEDS: FEBUXOSTAT 40 MG TAB PO SCH (09:37)
[2017-11-06] MEDS ORDERED: HYDROmorphone HCL CARPU-JECT 2 MG/1 ML DISP.SYRIN ONE ×3 (11:29→16:11)
--- NOTE | 2017-11-06 15:16 | PN ---
Progress Note (short form) - Note Progress Note: 11/06/17 I spoke to pt at length on 11/05/17 about transfer to [facility] and pt agreed. I also spoke to pt's today and explained to her pt's condition and reason for transfer to [facility] wc she also agreed to transfer. Pt's condition has been stable however after discussing case w/ Dr Morton it is felt that pt needs to be transferred for further management of his cauda equina syndrome and intractable pain syndrome. Dr Egan is accepting neurosurgeon at [facility] and pt to be transferred by BLS. Pt's vital signs are noted and have been stable. Problem List - Problems (1) Intractable back pain Code(s): M54.9 - DORSALGIA, UNSPECIFIED (2) Chronic back pain Code(s): M54.9 - DORSALGIA, UNSPECIFIED; G89.29 - OTHER CHRONIC PAIN (3) HTN (hypertension) Code(s): I10 - ESSENTIAL (PRIMARY) HYPERTENSION (4) Arthritis Code(s): M19.90 - UNSPECIFIED OSTEOARTHRITIS, UNSPECIFIED SITE (5) GERD (gastroesophageal reflux disease) Code(s): K21.9 - GASTRO-ESOPHAGEAL REFLUX DISEASE WITHOUT ESOPHAGITIS (6) Anemia Code(s): D64.9 - ANEMIA, UNSPECIFIED (7) HLD (hyperlipidemia) Code(s): E78.5 - HYPERLIPIDEMIA, UNSPECIFIED
[2017-11-06 15:17] VITALS: BP 122/64; PULSE 80; TEMP 98.3
--- NOTE | 2017-11-06 15:17 | PN ---
Progress Note, Physician History of Present Illness: patient continues to have pain neurology note noted and findings noted patient transferring to [facility] - Current Medication List Current Medications: Active Medications Celecoxib (Celebrex -) 200 mg PO DAILY [facility] Last Admin: 11/06/17 09:37 Dose: 200 mg Cyanocobalamin (Vitamin B12 -) 500 mcg PO DAILY [facility] Last Admin: 11/06/17 09:34 Dose: 500 mcg Docusate Sodium (Colace -) 100 mg PO TID [facility] Last Admin: 11/06/17 13:46 Dose: 100 mg Febuxostat (Uloric -) 40 mg PO DAILY [facility] Last Admin: 11/06/17 09:37 Dose: 40 mg Ferrous Sulfate (Feosol -) 325 mg PO DAILY [facility] Last Admin: 11/06/17 09:34 Dose: 325 mg Gabapentin (Neurontin -) 600 mg PO TID [facility] Last Admin: 11/06/17 13:47 Dose: 600 mg Heparin Sodium (Porcine) (Heparin -) 5,000 unit SQ BID [facility] Last Admin: 11/06/17 09:35 Dose: 5,000 unit Hydromorphone HCl (Dilaudid Injection -) 0.5 mg IVPB Q4H PRN PRN Reason: PAIN Last Admin: 11/06/17 11:53 Dose: 0.5 mg Metoprolol Succinate (Toprol Xl -) 50 mg PO DAILY [facility] Last Admin: 11/06/17 09:34 Dose: 50 mg Montelukast Sodium (Singulair -) 10 mg PO HS [facility] Last Admin: 11/05/17 21:51 Dose: 10 mg Morphine Sulfate (Ms Contin -) 30 mg PO BID@1000,2200 [facility] Last Admin: 11/06/17 09:33 Dose: 30 mg Pantoprazole Sodium (Protonix -) 20 mg PO DAILY [facility] Last Admin: 11/06/17 09:34 Dose: 20 mg Polyethylene Glycol (Miralax (For Daily Use) -) 17 gm PO DAILY [facility] Last Admin: 11/06/17 09:35 Dose: 17 gm Pramipexole Dihydrochloride (Mirapex -) 0.5 mg PO TID [facility] Last Admin: 11/06/17 13:46 Dose: 0.5 mg Valsartan (Diovan -) 160 mg PO BID [facility] Last Admin: 11/06/17 09:34 Dose: 160 mg - Objective Vital Signs: Vital Signs Temperature 98.3 F 11/06/17 14:15 Pulse Rate 80 11/06/17 14:15 Respiratory Rate 22 11/06/17 14:15 Blood Pressure 122/64 11/06/17 14:15 O2 Sat by Pulse Oximetry (%) 98 11/06/17 09:00 Constitutional: Yes: Calm, Mild Distress, Obese Cardiovascular: Yes: Regular Rate and Rhythm Respiratory: Yes: Regular, CTA Bilaterally Gastrointestinal: Yes: Normal Bowel Sounds, Soft Musculoskeletal: Yes: WNL Extremities: Yes: WNL Neurological: Yes: Alert, Oriented Psychiatric: Yes: Alert, Oriented Labs: CBC, BMP 11/03/17 07:15 11/03/17 07:15 Assessment/Plan Problem List - Problems (1) Intractable back pain Code(s): M54.9 - DORSALGIA, UNSPECIFIED (2) Chronic back pain Code(s): M54.9 - DORSALGIA, UNSPECIFIED; G89.29 - OTHER CHRONIC PAIN (3) HTN (hypertension) Assessment/Plan: Bp stable Code(s): I10 - ESSENTIAL (PRIMARY) HYPERTENSION (4) HLD (hyperlipidemia) Code(s): E78.5 - HYPERLIPIDEMIA, UNSPECIFIED (5) Arthritis Code(s): M19.90 - UNSPECIFIED OSTEOARTHRITIS, UNSPECIFIED SITE (6) GERD (gastroesophageal reflux disease) Code(s): K21.9 - GASTRO-ESOPHAGEAL REFLUX DISEASE WITHOUT ESOPHAGITIS (7) Anemia Code(s): D64.9 - ANEMIA, UNSPECIFIED plan as neurology patient plan to be transferred rest continue current mgmt
--- NOTE | 2017-11-11 21:36 | DS ---
Physical Examination Vital Signs: Vital Signs Temperature 98.3 F 11/06/17 14:15 Pulse Rate 80 11/06/17 14:15 Respiratory Rate 22 11/06/17 14:15 Blood Pressure 122/64 11/06/17 14:15 O2 Sat by Pulse Oximetry (%) 98 11/06/17 09:00 Labs: CBC, BMP 11/03/17 07:15 11/03/17 07:15 Discharge Summary Reason For Visit: INTRACTABLE BACK PAIN - Instructions Referrals: Leonard Lester MD [Primary Care Provider] - Disposition: TRANSFER ACUTE CARE/OTHER HOSP - Home Medications Comprehensive Discharge Medication List: Ambulatory Orders Aspirin [Rachelle Chewable Aspirin] 81 mg PO DAILY 04/03/17 Celecoxib [Celebrex] 200 mg PO DAILY 04/03/17 Cyanocobalamin (Vitamin B-12) [B-12] 500 mcg PO DAILY 04/03/17 Febuxostat [Uloric -] 40 mg PO DAILY 04/03/17 Gabapentin 300 mg PO QID 04/03/17 Iron 28 mg PO DAILY 04/03/17 Methocarbamol 750 mg PO BID 04/03/17 Methotrexate Sodium [Methotrexate] 2.5 mg PO DAILY 04/03/17 Metoprolol Succinate [Toprol XL -] 50 mg PO DAILY 04/03/17 Montelukast Na [Singulair -] 10 mg PO HS 04/03/17 Omeprazole Magnesium [Prilosec] 10 mg PO DAILY 04/03/17 Valsartan [Diovan] 160 mg PO BID 04/03/17 Zolpidem Tartrate [Ambien] 10 mg PO DAILY 04/03/17 Amoxicillin/Potassium Clav [Augmentin 875-125 Tablet] 1 each PO BID #20 tablet 04/06/17 Oxycodone HCl [Oxycodone HCl ER] 10 mg PO BID 10/28/17 Oxycodone HCl/Acetaminophen [Percocet 10-325 mg Tablet] 1 each PO TID PRN
== END 2017-11-06 19:24 | disposition short-term general hospital (02) | DRG 74 ==
LOC: JER 15:08 → JERBED 10-29 04:08 → UNDOADMOB 10-29 04:13 → JERBED 10-29 04:13 → OBSVTOIN 10-29 11:17 → J5S 10-29 13:17
PROVIDERS: ADMIT Internal Medicine; ATTEND Internal Medicine
DX: G83.4 Cauda equina syndrome (principal); A52.16 Charcot's arthropathy (tabetic); M48.061 Spinal stenosis, lumbar region without neurogenic claudication; I10 Essential (primary) hypertension; Z85.46 Personal history of malignant neoplasm of prostate; E78.5 Hyperlipidemia, unspecified; M10.9 Gout, unspecified; F51.04 Psychophysiologic insomnia; G25.81 Restless legs syndrome; G62.9 Polyneuropathy, unspecified; R32 Unspecified urinary incontinence; M47.896 Other spondylosis, lumbar region; E66.9 Obesity, unspecified; Z68.32 Body mass index [BMI] 32.0-32.9, adult; M51.16 Intervertebral disc disorders with radiculopathy, lumbar region
CPT/HCPCS: 36415; 72131-TC; 72141-TC; 72148-TC; 72149-TC; 80053; 81003; 83540; 83550; 85025; 85651; 86140; 87040; 90670; 90688; 93005; 93010; 97116-GP; 97161-GP; 99284-25; G0008; G0009; G0378; J1644

== ENCOUNTER 2018-01-06 20:14 | Inpatient (IN) | payer OTHER, BC ==
[2018-01-06 22:23] LABS: BASO % 0.8 % (0-2.0); EOS % 7.9 % (0-4.5); HEMOGLOBIN 9.8 GM/dL (11.7-16.9); LYMPH % 22.1 % (8-40); MCH 33.6 pg (25.7-33.7); MCHC 33.9 g/dl (32.0-35.9); MEAN CELL VOLUME 99.2 fl (80-96); MEAN PLT VOLUME 6.7 fl (7.5-11.1); MONO % 11.3 % (3.8-10.2); NEUT % 57.9 % (42.8-82.8); PLATELET COUNT 371 K/MM3 (134-434); RBC 2.92 M/mm3 (4.00-5.60); RDW 15.2 % (11.9-15.9); WHITE BLOOD COUNT 6.9 K/mm3 (4.0-10.0)
[2018-01-06 22:24] LABS: URINE APPEARANCE CLEAR; URINE BILIRUBIN NEGATIVE (<2.0 mg/dL); URINE BLOOD NEGATIVE (NEGATIVE); URINE COLOR YELLOW; URINE GLUCOSE (UA) NEGATIVE (NEGATIVE); URINE KETONE NEGATIVE (NEGATIVE); URINE LEUK ESTERASE NEGATIVE (NEGATIVE); URINE NITRITE NEGATIVE (NEGATIVE)
[2018-01-06 22:30] LABS: URINE PROTEIN 1+ (NEGATIVE)
[2018-01-06 22:31] LABS: EPI CELLS RARE /HPF (FEW); URINE MUCUS RARE
[2018-01-06 22:35] LABS: INR 1.12 (0.82-1.09); PROTHROMBIN TIME (PATIENT) 12.6 SEC (9.98-11.88)
[2018-01-06 22:48] LABS: ALBUMIN 3.7 g/dl (3.4-5.0); ALK PHOS 82 U/L (45-117); ANION GAP 10 (8-16); BILIRUBIN,TOTAL 0.5 mg/dL (0.2-1.0); BLOOD UREA NITROGEN 13 mg/dL (7-18); CALCIUM 8.7 mg/dL (8.5-10.1); CHLORIDE 106 mmol/L (98-107); CO2 27 mmol/L (21-32); CREATININE 0.7 mg/dL (0.7-1.3); GLUCOSE,RANDOM 86 mg/dL (74-106); POTASSIUM 4.3 mmol/L (3.5-5.1); SGOT/AST 18 U/L (15-37); SGPT/ALT 19 U/L (12-78); SODIUM 143 mmol/L (136-145); TOT PROT 5.9 g/dl (6.4-8.2)
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
[2018-01-07] MEDS ORDERED: FUROSEMIDE 40 MG/4 ML INJECTABLE VIAL IVPUSH ONE (00:24)
[2018-01-07] MEDS ORDERED: oxyCODONE HCL 5 MG TABLET PO ONE ×2 (00:29→06:17)
[2018-01-07] MEDS ORDERED: FUROSEMIDE 40 MG/4 ML INJECTABLE VIAL ONE (00:40)
[2018-01-07] MEDS ORDERED: oxyCODONE HCL 5 MG TABLET ONE ×2 (01:07→06:21)
--- NOTE | 2018-01-07 06:26 | PDOC ---
*Physical Exam - Vital Signs Last Vital Signs Temp Pulse Resp BP Pulse Ox 98 F 92 H 18 145/81 99 01/06/18 21:39 01/07/18 03:22 01/07/18 03:22 01/07/18 03:22 01/07/18 03:22 ED Treatment Course - LABORATORY CBC & Chemistry Diagram: 01/06/18 22:13 01/06/18 22:13 - ADDITIONAL ORDERS Additional order review: Laboratory Results 01/06/18 01/06/18 01/06/18 23:00 22:13 22:13 PT with INR INR PTT (Actin FS) Sodium 143 Potassium 4.3 Chloride 106 Carbon Dioxide 27 Anion Gap 10 BUN 13 Creatinine 0.7 Creat Clearance w eGFR > 60 Random Glucose 86 Calcium 8.7 Total Bilirubin 0.5 D AST 18 D ALT 19 Alkaline Phosphatase 82 D Troponin I 0.05 D B-Natriuretic Peptide 2590.08 H Total Protein 5.9 L Albumin 3.7 Urine Color Urine Appearance Urine pH Ur Specific [place] Urine Protein Urine Glucose (UA) Urine Ketones Urine Blood Urine Nitrite Urine Bilirubin Urine Urobilinogen Ur Leukocyte Esterase Urine WBC (Auto) Urine RBC (Auto) Ur Epithelial Cells Urine Mucus 01/06/18 01/06/18 22:13 22:13 PT with INR 12.60 H INR 1.12 PTT (Actin FS) 33.0 Sodium Potassium Chloride Carbon Dioxide Anion Gap BUN Creatinine Creat Clearance w eGFR Random Glucose Calcium Total Bilirubin AST ALT Alkaline Phosphatase Troponin I B-Natriuretic Peptide Total Protein Albumin Urine Color Yellow Urine Appearance Clear Urine pH 5.0 Ur Specific [place] 1.021 Urine Protein 1+ H Urine Glucose (UA) Negative Urine Ketones Negative Urine Blood Negative Urine Nitrite Negative Urine Bilirubin Negative Urine Urobilinogen 2.0 Ur Leukocyte Esterase Negative Urine WBC (Auto) 1 Urine RBC (Auto) 1 Ur Epithelial Cells Rare Urine Mucus Rare 01/06/18 22:13 RBC 2.92 L MCV 99.2 H MCHC 33.9 RDW 15.2 MPV 6.7 L Neutrophils % 57.9 D Lymphocytes % 22.1 D Monocytes % 11.3 H Eosinophils % 7.9 H Basophils % 0.8 - RADIOLOGY Radiology Studies Ordered: Category Date Time Status CHEST X-RAY PORTABLE* [RAD] Stat Radiology 01/06/18 21:57 Completed - Medications Given in the ED: ED Medications Discontinued Medications Generic Name Dose Route Start Last Admin Trade Name Freq PRN Reason Stop Dose Admin Furosemide 40 mg 01/07/18 00:24 01/07/18 00:44 Lasix Injection - IVPUSH 01/07/18 00:25 40 mg ONCE ONE Administration Oxycodone HCl 10 mg 01/07/18 00:29 01/07/18 00:44 Roxicodone - PO 01/07/18 00:30 10 mg ONCE ONE Administration Oxycodone HCl 10 mg 01/07/18 06:17 01/07/18 06:23 Roxicodone - PO 01/07/18 06:18 10 mg ONCE ONE Administration Medical Decision Making - Medical Decision Making 01/07/18 06:25 agree with care from [facility] *DC/Admit/Observation/Transfer Diagnosis at time of Disposition: Congestive heart failure Qualifiers: Heart failure type: unspecified Heart failure chronicity: acute Qualified Code( s): I50.9 - Heart failure, unspecified - Discharge Dispostion Condition at time of disposition: Stable - Referrals - Patient Instructions - Post Discharge Activity
--- NOTE | 2018-01-07 09:48 | EKG ---
Test Reason : Blood Pressure : / mmHG Vent. Rate : 082 BPM Atrial Rate : 082 BPM P-R Int : 242 ms QRS Dur : 104 ms QT Int : 412 ms P-R-T Axes : 054 006 005 degrees QTc Int : 481 ms SINUS RHYTHM WITH 1ST DEGREE A-V BLOCK PROLONGED QT ABNORMAL ECG WHEN COMPARED WITH ECG OF 28-OCT-2017 23:17, [place] INTERVAL HAS INCREASED Confirmed by RAMIN TREJO, POLO ([id number]) on 01/07/2018 9:48:44 AM Referred By: Confirmed By:POLO FAUSTIN MD
--- NOTE | 2018-01-07 09:50 | CON.CARD ---
Consult Consult Specialty:: Cardiology - History of Present Illness History of Present Illness: 72 y/o male with multiple back and neck surgeries with chronic pain, HTN, CAD with 2 stents c/o b/l leg swelling x the past few days. 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 Cardio/Vascular: Yes: HTN, Hyperlipdemia Gastrointestinal: Yes: GERD Musculoskeletal: Yes: Other (Chronic rt ankle pain) Rheumatology: Yes: Gout - Alcohol/Substance Use Hx Alcohol Use: No History of Substance Use: reports: None - Smoking History Smoking history: Unknown if ever smoked Have you smoked in the past 12 months: No - Social History ADL: Independent History of Recent Travel: No Home Medications - Allergies Allergies/Adverse Reactions: Allergies Allergy/AdvReac Type Severity Reaction Status Date / Time No Known Drug Allergies Allergy Verified 01/06/18 21:54 - Home Medications Home Medications: Ambulatory Orders Aspirin [Rachelle Chewable Aspirin] 81 mg PO DAILY 04/03/17 Celecoxib [Celebrex] 200 mg PO DAILY 04/03/17 Cyanocobalamin (Vitamin B-12) [B-12] 500 mcg PO DAILY 04/03/17 Febuxostat [Uloric -] 40 mg PO DAILY 04/03/17 Gabapentin 300 mg PO QID 04/03/17 Iron 28 mg PO DAILY 04/03/17 Methocarbamol 750 mg PO BID 04/03/17 Methotrexate Sodium [Methotrexate] 2.5 mg PO DAILY 04/03/17 Metoprolol Succinate [Toprol XL -] 50 mg PO DAILY 04/03/17 Montelukast Na [Singulair -] 10 mg PO HS 04/03/17 Omeprazole Magnesium [Prilosec] 10 mg PO DAILY 04/03/17 Valsartan [Diovan] 160 mg PO BID 04/03/17 Zolpidem Tartrate [Ambien] 10 mg PO DAILY 04/03/17 Amoxicillin/Potassium Clav [Augmentin 875-125 Tablet] 1 each PO BID #20 tablet 04/06/17 Oxycodone HCl [Oxycodone HCl ER] 10 mg PO BID 10/28/17 Oxycodone HCl/Acetaminophen [Percocet 10-325 mg Tablet] 1 each PO TID PRN Review of Systems - Review of Systems Constitutional: reports: No Symptoms Eyes: reports: No Symptoms HENT: reports: No Symptoms Neck: reports: No Symptoms Cardiovascular: reports: Edema Gastrointestinal: reports: No Symptoms Genitourinary: reports: No Symptoms Breasts: reports: No Symptoms Reported Musculoskeletal: reports: No Symptoms Integumentary: reports: No Symptoms Neurological: reports: No Symptoms Endocrine: reports: No Symptoms Hematology/Lymphatic: reports: No Symptoms Psychiatric: reports: No Symptoms Vital Signs: Vital Signs Temperature 98.4 F 01/07/18 06:55 Pulse Rate 94 H 01/07/18 06:55 Respiratory Rate 16 01/07/18 06:55 Blood Pressure 153/89 01/07/18 06:55 O2 Sat by Pulse Oximetry (%) 97 01/07/18 06:55 Constitutional: Yes: Well Nourished, No Distress, Calm Eyes: Yes: WNL, Conjunctiva Clear, EOM Intact HENT: Yes: WNL, Atraumatic, Normocephalic Neck: Yes: WNL, Supple, Trachea Midline Respiratory: Yes: WNL, Regular, CTA Bilaterally Gastrointestinal: Yes: WNL, Normal Bowel Sounds Renal/: Yes: WNL Cardiovascular: Yes: WNL, Regular Rate and Rhythm Heart Sounds: Yes: S1, S2 Musculoskeletal: Yes: WNL Extremities: Yes: WNL Edema: Yes Edema: LLE: 2+, RLE: 2+ Integumentary: Yes: WNL Neurological: Yes: WNL, Alert, Oriented ...Motor Strength: WNL Psychiatric: Yes: WNL, Alert, Oriented - Other Data Labs, Other Data: CBC, BMP 01/06/18 22:13 01/06/18 22:13 INR, PTT INR 1.12 (0.82-1.09) 01/06/18 22:13 Troponin, BNP 01/06/18 01/06/18 22:13 23:00 Troponin I 0.05 D B-Natriuretic Peptide 2590.08 H Troponin, BNP 01/06/18 01/06/18 22:13 23:00 Troponin I 0.05 D B-Natriuretic Peptide 2590.08 H Imaging - Results Chest X-ray: Image Reviewed (no i/e) EKG: Image Reviewed (sr 1st degree avb prolonged qt) Problem List - Problems (1) Congestive heart failure Code(s): I50.9 - HEART FAILURE, UNSPECIFIED Qualifiers: Heart failure type: unspecified Heart failure chronicity: acute Qualified Code(s): I50.9 - Heart failure, unspecified (2) Acute renal failure Code(s): N17.9 - ACUTE KIDNEY FAILURE, UNSPECIFIED (3) Altered mental status Code(s): R41.82 - ALTERED MENTAL STATUS, UNSPECIFIED Qualifiers: Altered mental status type: transient alteration of awareness Qualified Code(s): R40.4 - Transient alteration of awareness (4) Anemia Code(s): D64.9 - ANEMIA, UNSPECIFIED (5) Ankle and foot joint derangement Code(s): M24.9 - JOINT DERANGEMENT, UNSPECIFIED (6) Arthritis Code(s): M19.90 - UNSPECIFIED OSTEOARTHRITIS, UNSPECIFIED SITE (7) Chronic back pain Code(s): M54.9 - DORSALGIA, UNSPECIFIED; G89.29 - OTHER CHRONIC PAIN (8) GERD (gastroesophageal reflux disease) Code(s): K21.9 - GASTRO-ESOPHAGEAL REFLUX DISEASE WITHOUT ESOPHAGITIS (9) GI bleed Code(s): K92.2 - GASTROINTESTINAL HEMORRHAGE, UNSPECIFIED (10) HLD (hyperlipidemia) Code(s): E78.5 - HYPERLIPIDEMIA, UNSPECIFIED (11) HTN (hypertension) Code(s): I10 - ESSENTIAL (PRIMARY) HYPERTENSION (12) Intractable back pain Code(s): M54.9 - DORSALGIA, UNSPECIFIED (13) Low blood pressure Code(s): I95.9 - HYPOTENSION, UNSPECIFIED Qualifiers: Qualified Code(s): I95.9 - Hypotension, unspecified (14) Lumbar radiculopathy Code(s): M54.16 - RADICULOPATHY, LUMBAR REGION (15) S/P lumbar fusion Code(s): Z98.1 - ARTHRODESIS STATUS (16) Sepsis Code(s): A41.9 - SEPSIS, UNSPECIFIED ORGANISM Qualifiers: Sepsis type: sepsis due to unspecified organism Qualified Code(s): A41.9 - Sepsis, unspecified organism (17) Syncope Code(s): R55 - SYNCOPE AND COLLAPSE (18) Tachycardia Code(s): R00.0 - TACHYCARDIA, UNSPECIFIED (19) UTI (urinary tract infection) Code(s): N39.0 - URINARY TRACT INFECTION, SITE NOT SPECIFIED Qualifiers: Urinary tract infection type: site unspecified Hematuria presence: with hematuria Qualified Code(s): N39.0 - Urinary tract infection, site not specified (20) Weakness Code(s): R53.1 - WEAKNESS Assessment/Plan chf decompensated ashd ? history limited ?pad s/p back surgeries chronic pain plan please old records re cardiac history echo telemetry cont asa agree with IV lasix
--- NOTE | 2018-01-07 14:17 | HP ---
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 Cardiovascular: Yes: HTN, Hyperlipdemia Gastrointestinal: Yes: GERD Heme/Onc: Yes: Anemia, Other (Prostate cancer) Musculoskeletal: Yes: Other (Chronic rt ankle pain) Rheumatology: Yes: Gout - Smoking History Smoking history: Unknown if ever smoked Have you smoked in the past 12 months: No - Alcohol/Substance Use Hx Alcohol Use: No History of Substance Use: reports: None - Social History ADL: Independent History of Recent Travel: No Home Medications - Allergies Allergies/Adverse Reactions: Allergies Allergy/AdvReac Type Severity Reaction Status Date / Time No Known Drug Allergies Allergy Verified 01/06/18 21:54 - Home Medications Home Medications: Ambulatory Orders Aspirin [Rachelle Chewable Aspirin] 81 mg PO DAILY 04/03/17 Celecoxib [Celebrex] 200 mg PO DAILY 04/03/17 Cyanocobalamin (Vitamin B-12) [B-12] 500 mcg PO DAILY 04/03/17 Febuxostat [Uloric -] 40 mg PO DAILY 04/03/17 Gabapentin 300 mg PO QID 04/03/17 Iron 28 mg PO DAILY 04/03/17 Methocarbamol 750 mg PO BID 04/03/17 Methotrexate Sodium [Methotrexate] 2.5 mg PO DAILY 04/03/17 Metoprolol Succinate [Toprol XL -] 50 mg PO DAILY 04/03/17 Montelukast Na [Singulair -] 10 mg PO HS 04/03/17 Omeprazole Magnesium [Prilosec] 10 mg PO DAILY 04/03/17 Valsartan [Diovan] 160 mg PO BID 04/03/17 Zolpidem Tartrate [Ambien] 10 mg PO DAILY 04/03/17 Amoxicillin/Potassium Clav [Augmentin 875-125 Tablet] 1 each PO BID #20 tablet 04/06/17 Oxycodone HCl [Oxycodone HCl ER] 10 mg PO BID 10/28/17 Oxycodone HCl/Acetaminophen [Percocet 10-325 mg Tablet] 1 each PO TID PRN Physical Examination Vital Signs: Vital Signs Temperature 98.4 F 01/07/18 06:55 Pulse Rate 94 H 01/07/18 06:55 Respiratory Rate 16 01/07/18 06:55 Blood Pressure 153/89 01/07/18 06:55 O2 Sat by Pulse Oximetry (%) 97 01/07/18 06:55 Labs: CBC, BMP 01/06/18 22:13 01/06/18 22:13
[2018-01-07] MEDS ORDERED: GABAPENTIN 100 MG CAPSULE (FP) ONE (16:30)
[2018-01-07] MEDS: GABAPENTIN 300 MG CAPSULE (FP) PO SCH ×3 (16:32→21:52)
[2018-01-07] MEDS: oxyCODONE HCL 10 MG SUSTAINED ACTING TABLET PO SCH (21:11)
[2018-01-07] MEDS: MONTELUKAST NA 10 MG TABLET PO SCH (21:11)
[2018-01-07] MEDS: VALSARTAN 160 MG TABLET (UD) PO SCH (21:11)
[2018-01-07 22:35] VITALS: BMI 29.2
[2018-01-08 06:42] LABS: CHOLESTEROL 96 mg/dL (50-200); HDL CHOLESTEROL 55 mg/dL (40-60); LDL CHOLESTEROL (ONLY SJRH) 45 mg/dL (5-100); TRIGLYCERIDES 54 mg/dL (35-160)
[2018-01-08] MEDS ORDERED: METHOTREXATE 2.5 MG TABLET PO SCH (10:00)
[2018-01-08] MEDS ORDERED: IRON 28 MG PO SCH (10:00)
[2018-01-08] MEDS ORDERED: OMEPRAZOLE MAGNESIUM 10 MG PO SCH (10:00)
[2018-01-08] MEDS ORDERED: CELECOXIB 200 MG CAPSULE PO SCH (10:00)
[2018-01-08] MEDS: ASPIRIN 81 MG CHEWABLE TABLETS PO SCH (10:21)
[2018-01-08] MEDS: CYANOCOBALAMIN 1,000 MCG TABLET (FP) PO SCH (10:21)
[2018-01-08] MEDS: VALSARTAN 160 MG TABLET (UD) PO SCH ×2 (10:21→21:50)
[2018-01-08] MEDS: GABAPENTIN 300 MG CAPSULE (FP) PO SCH ×5 (10:22→21:51)
[2018-01-08] MEDS: oxyCODONE HCL 10 MG SUSTAINED ACTING TABLET PO SCH ×2 (10:22→21:51)
[2018-01-08] MEDS: FUROSEMIDE 40 MG/4 ML INJECTABLE VIAL IVPUSH SCH (10:23)
[2018-01-08] MEDS: FERROUS SO4 325 MG TABLET (FP) PO SCH (12:53)
[2018-01-08] MEDS: PANTOPRAZOLE 40 MG TABLET (FP) PO SCH (12:53)
[2018-01-08] MEDS: DOCUSATE SODIUM 100 MG CAPSULE (FP) PO SCH ×3 (12:54→21:50)
[2018-01-08] MEDS ORDERED: PT OWN MED DRAWER 7, Y5N ONE (12:57)
--- NOTE | 2018-01-08 16:31 | PN ---
Progress Note, Physician Chief Complaint: Pt A&Ox3; no chest pain or dyspnea; c/o constipation. History of Present Illness: 72 y/o male with multiple back and neck surgeries-->cervical spine surgery x 2, with chronic pain (on oxycodone for years, with enxuing chronic constipation) , fractured right ankle-->surgery years ago, with chronic swelling and secreased ROM, HTN, CAD (?hx of a "small heart attack")with 2 stents (placed about a month ago), prostate CA-->prostatecomy, Lupron; testosterone sots; penile implant; now c/o b/l leg swelling x the past few days. HISTORY OF PRESENT ILLNESS: The patient states his leg have never been this swollen before. He denies f/c, n/v/d, CP, SOB, hemoptysis, orthopnea, abd pain. Vital signs on arrival are within normal limits. - Current Medication List Current Medications: Active Medications Aspirin (Asa -) 81 mg PO DAILY REPLACED BY [facility] Last Admin: 01/08/18 10:21 Dose: 81 mg Celecoxib (Celebrex -) 200 mg PO DAILY REPLACED BY [facility] Last Admin: 01/08/18 12:58 Dose: 200 mg Cyanocobalamin (Vitamin B12 -) 500 mcg PO DAILY REPLACED BY [facility] Last Admin: 01/08/18 10:21 Dose: 500 mcg Docusate Sodium (Colace -) 100 mg PO TID REPLACED BY [facility] Last Admin: 01/08/18 12:54 Dose: 100 mg Ferrous Sulfate (Feosol -) 325 mg PO DAILY REPLACED BY [facility] Last Admin: 01/08/18 12:53 Dose: 325 mg Furosemide (Lasix Injection -) 40 mg IVPUSH DAILY REPLACED BY [facility] Last Admin: 01/08/18 10:23 Dose: 40 mg Gabapentin (Neurontin -) 300 mg PO QID REPLACED BY [facility] Last Admin: 01/08/18 12:53 Dose: 300 mg Metoprolol Succinate (Toprol Xl -) 50 mg PO DAILY REPLACED BY [facility] Last Admin: 01/08/18 10:22 Dose: 50 mg Montelukast Sodium (Singulair -) 10 mg PO HS REPLACED BY [facility] Last Admin: 01/07/18 21:11 Dose: 10 mg Oxycodone HCl (Oxycontin -) 10 mg PO BID REPLACED BY [facility] Last Admin: 01/08/18 10:22 Dose: 10 mg Pantoprazole Sodium (Protonix -) 40 mg PO DAILY REPLACED BY [facility] Last Admin: 01/08/18 12:53 Dose: 40 mg Valsartan (Diovan -) 160 mg PO BID REPLACED BY [facility] Last Admin: 01/08/18 10:21 Dose: 160 mg - Objective Vital Signs: Vital Signs Temperature 98.2 F 01/08/18 13:47 Pulse Rate 79 01/08/18 13:47 Respiratory Rate 18 01/08/18 13:47 Blood Pressure 130/79 01/08/18 13:47 O2 Sat by Pulse Oximetry (%) 99 01/08/18 10:00 Constitutional: Yes: No Distress Eyes: Yes: WNL HENT: Yes: WNL Neck: Yes: Decreased ROM Cardiovascular: Yes: Other (vertical scar central posterior neck (hx 2 surgeries )) Respiratory: Yes: Regular. No: SOB ...Rectal Exam: Yes: Deferred Genitourinary: No: Anuria Musculoskeletal: Yes: Joint Swelling (chronic right knee and right ankle) Extremities: Yes: Cool Edema: Yes Edema: LLE: 1+, RLE: 1+ Peripheral Pulses WNL: Yes Integumentary: Yes: Other (surgical scars right ankle, posterior neck) Neurological: Yes: WNL Psychiatric: Yes: WNL Labs: CBC, BMP 01/06/18 22:13 01/06/18 22:13 INR, PTT INR 1.12 (0.82-1.09) 01/06/18 22:13 - ....Imaging Chest X-ray: Image Reviewed (no acute changes) Other: Image Reviewed (telemetry:NSR; periods of sinus tachycardia) Problem List - Problems (1) Acute on chronic diastolic (congestive) heart failure Assessment/Plan: On valsartan, metoprolol ER, furosemide. F/u BUN/Cr, electrolytes, Is and Os, daily weight. Code(s): I50.33 - ACUTE ON CHRONIC DIASTOLIC (CONGESTIVE) HEART FAILURE (2) Severe mitral regurgitation Code(s): I34.0 - NONRHEUMATIC MITRAL (VALVE) INSUFFICIENCY (3) Hx of heart artery stent Assessment/Plan: Pt with 2 stents placed about a month ago. Pt give hx of [place] (?age). Recommend stopping Celebrex, and any other non-aspirin NSAIDs. Code(s): Z95.5 - PRESENCE OF CORONARY ANGIOPLASTY IMPLANT AND GRAFT (4) Hx of myocardial infarction Assessment/Plan: f/u cardiac records Code(s): I25.2 - OLD MYOCARDIAL INFARCTION (5) Fe deficiency anemia Assessment/Plan: on iron supllements. Code(s): D50.9 - IRON DEFICIENCY ANEMIA, UNSPECIFIED (6) Autoimmune disease Assessment/Plan: pt is on methotrexate and methocarbamate. 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 F/u with pt's blockman. Code(s): D89.89 - OTH DISRD INVOLVING THE IMMUNE MECHANISM, NEC (7) Prostate CA Code(s): C61 - MALIGNANT NEOPLASM OF PROSTATE
[2018-01-08] MEDS: CLOPIDOGREL BISULFATE 75 MG TABLET (FP) PO SCH (18:09)
--- NOTE | 2018-01-08 21:33 | PN ---
Progress Note, Physician History of Present Illness: Pt still w/ some SOB and states that his edema is less - Current Medication List Current Medications: Active Medications Aspirin (Asa -) 81 mg PO DAILY [facility] Last Admin: 01/08/18 10:21 Dose: 81 mg Clopidogrel Bisulfate (Plavix -) 75 mg PO DAILY [facility] Last Admin: 01/08/18 18:09 Dose: 75 mg Cyanocobalamin (Vitamin B12 -) 500 mcg PO DAILY [facility] Last Admin: 01/08/18 10:21 Dose: 500 mcg Docusate Sodium (Colace -) 100 mg PO TID [facility] Last Admin: 01/08/18 17:41 Dose: Not Given Ferrous Sulfate (Feosol -) 325 mg PO DAILY [facility] Last Admin: 01/08/18 12:53 Dose: 325 mg Furosemide (Lasix Injection -) 40 mg IVPUSH DAILY [facility] Last Admin: 01/08/18 10:23 Dose: 40 mg Gabapentin (Neurontin -) 300 mg PO QID [facility] Last Admin: 01/08/18 18:09 Dose: 300 mg Metoprolol Succinate (Toprol Xl -) 50 mg PO DAILY [facility] Last Admin: 01/08/18 10:22 Dose: 50 mg Montelukast Sodium (Singulair -) 10 mg PO HS [facility] Last Admin: 01/07/18 21:11 Dose: 10 mg Oxycodone HCl (Oxycontin -) 10 mg PO BID [facility] Last Admin: 01/08/18 10:22 Dose: 10 mg Pantoprazole Sodium (Protonix -) 40 mg PO DAILY [facility] Last Admin: 01/08/18 12:53 Dose: 40 mg Valsartan (Diovan -) 160 mg PO BID [facility] Last Admin: 01/08/18 10:21 Dose: 160 mg - Objective Vital Signs: Vital Signs Temperature 97.7 F 01/08/18 20:55 Pulse Rate 76 01/08/18 20:55 Respiratory Rate 18 01/08/18 21:00 Blood Pressure 134/75 01/08/18 20:55 O2 Sat by Pulse Oximetry (%) 98 01/08/18 21:00 Constitutional: Yes: Well Nourished Neck: Yes: WNL, Supple Cardiovascular: Yes: WNL, Regular Rate and Rhythm Respiratory: Yes: WNL, Regular, CTA Bilaterally Gastrointestinal: Yes: WNL, Normal Bowel Sounds, Soft, Abdomen, Obese Edema: LLE: 2+, RLE: 2+ Labs: CBC, BMP 01/06/18 22:13 01/06/18 22:13 INR, PTT INR 1.12 (0.82-1.09) 01/06/18 22:13 Problem List - Problems (1) Acute on chronic diastolic (congestive) heart failure Assessment/Plan: Cont IV lasix Monitor electrolytes Code(s): I50.33 - ACUTE ON CHRONIC DIASTOLIC (CONGESTIVE) HEART FAILURE (2) Anemia Assessment/Plan: Cont Fe supplement Monitor H/H Code(s): D64.9 - ANEMIA, UNSPECIFIED (3) HTN (hypertension) Assessment/Plan: BP stable Cont valsartan/toprol Code(s): I10 - ESSENTIAL (PRIMARY) HYPERTENSION (4) Lumbar radiculopathy Assessment/Plan: Pt w/ multiple back surgeries Agree w/ stopping NSAID's Cont neurontin Code(s): M54.16 - RADICULOPATHY, LUMBAR REGION (5) CAD (coronary artery disease) Assessment/Plan: Cont plavix/asa Code(s): I25.10 - ATHSCL HEART DISEASE OF [place] CORONARY ARTERY W/O ANG PCTRS (6) Hx of heart artery stent Code(s): Z95.5 - PRESENCE OF CORONARY ANGIOPLASTY IMPLANT AND GRAFT (7) Hx of myocardial infarction Code(s): I25.2 - OLD MYOCARDIAL INFARCTION (8) HLD (hyperlipidemia) Code(s): E78.5 - HYPERLIPIDEMIA, UNSPECIFIED
[2018-01-08] MEDS: MONTELUKAST NA 10 MG TABLET PO SCH (21:52)
[2018-01-09] MEDS: DOCUSATE SODIUM 100 MG CAPSULE (FP) PO SCH ×3 (06:27→21:46)
--- NOTE | 2018-01-09 08:59 | PN ---
Progress Note, Physician Chief Complaint: Says his edema is much improved Denies CP or SOB History of Present Illness: 72 y/o male with multiple back and neck surgeries-->cervical spine surgery x 2, with chronic pain (on oxycodone for years, with enxuing chronic constipation) , fractured right ankle-->surgery years ago, with chronic swelling and secreased ROM, HTN, CAD (?hx of a "small heart attack")with 2 stents (placed about a month ago), prostate CA-->prostatecomy, Lupron; testosterone sots; penile implant; now c/o b/l leg swelling x the past few days. - Current Medication List Current Medications: Active Medications Aspirin (Asa -) 81 mg PO DAILY [facility] Last Admin: 01/08/18 10:21 Dose: 81 mg Clopidogrel Bisulfate (Plavix -) 75 mg PO DAILY [facility] Last Admin: 01/08/18 18:09 Dose: 75 mg Cyanocobalamin (Vitamin B12 -) 500 mcg PO DAILY [facility] Last Admin: 01/08/18 10:21 Dose: 500 mcg Docusate Sodium (Colace -) 100 mg PO TID [facility] Last Admin: 01/09/18 06:27 Dose: 100 mg Ferrous Sulfate (Feosol -) 325 mg PO DAILY [facility] Last Admin: 01/08/18 12:53 Dose: 325 mg Furosemide (Lasix Injection -) 40 mg IVPUSH DAILY [facility] Last Admin: 01/08/18 10:23 Dose: 40 mg Gabapentin (Neurontin -) 300 mg PO QID [facility] Last Admin: 01/08/18 21:51 Dose: 300 mg Metoprolol Succinate (Toprol Xl -) 50 mg PO DAILY [facility] Last Admin: 01/08/18 10:22 Dose: 50 mg Montelukast Sodium (Singulair -) 10 mg PO HS [facility] Last Admin: 01/08/18 21:52 Dose: 10 mg Oxycodone HCl (Oxycontin -) 10 mg PO BID [facility] Last Admin: 01/08/18 21:51 Dose: 10 mg Pantoprazole Sodium (Protonix -) 40 mg PO DAILY [facility] Last Admin: 01/08/18 12:53 Dose: 40 mg Valsartan (Diovan -) 160 mg PO BID [facility] Last Admin: 01/08/18 21:50 Dose: 160 mg - Objective Vital Signs: Vital Signs Temperature 97.6 F 01/09/18 06:00 Pulse Rate 82 01/09/18 06:00 Respiratory Rate 20 01/09/18 06:00 Blood Pressure 137/94 01/09/18 06:00 O2 Sat by Pulse Oximetry (%) 98 01/08/18 21:00 Constitutional: Yes: No Distress, Calm Neck: Yes: Supple Cardiovascular: Yes: Regular Rate and Rhythm Respiratory: Yes: CTA Bilaterally Gastrointestinal: Yes: Soft, Abdomen, Obese Edema: Yes Edema: LLE: 1+, RLE: 2+ Peripheral Pulses WNL: Yes (small black spot left foot) Neurological: Yes: Alert, Oriented ...Motor Strength: WNL Labs: CBC, BMP 01/06/18 22:13 01/06/18 22:13 INR, PTT INR 1.12 (0.82-1.09) 01/06/18 22:13 - ....Imaging EKG: Image Reviewed (TELE: NSR 1st degree AV block) Assessment/Plan Problem List - Problems (1) Acute on chronic diastolic (congestive) heart failure Assessment/Plan: On valsartan, metoprolol ER, furosemide. F/u BUN/Cr, electrolytes, Is and Os, daily weight. Code(s): I50.33 - ACUTE ON CHRONIC DIASTOLIC (CONGESTIVE) HEART FAILURE (2) Severe mitral regurgitation Code(s): I34.0 - NONRHEUMATIC MITRAL (VALVE) INSUFFICIENCY Will need to review echo as I do not think previous echo showed this degree of MR Cont Lasix and ARB (3) Hx of heart artery stent Assessment/Plan: Pt with 2 stents placed about a month ago. Pt give hx of [place] (?age). Recommend stopping Celebrex, and any other non-aspirin NSAIDs. Code(s): Z95.5 - PRESENCE OF CORONARY ANGIOPLASTY IMPLANT AND GRAFT (4) Hx of myocardial infarction Assessment/Plan: Old inferior ND on ECG on prior office ECGs Code(s): I25.2 - OLD MYOCARDIAL INFARCTION (5) Fe deficiency anemia Assessment/Plan: on iron supllements. Code(s): D50.9 - IRON DEFICIENCY ANEMIA, UNSPECIFIED (6) Autoimmune disease Assessment/Plan: pt is on methotrexate and methocarbamate. 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 F/u with pt's registered radiologic technologist. Code(s): D89.89 - OTH DISRD INVOLVING THE IMMUNE MECHANISM, NEC (7) Prostate CA Code(s): C61 - MALIGNANT NEOPLASM OF PROSTATE
[2018-01-09] MEDS: oxyCODONE HCL 10 MG SUSTAINED ACTING TABLET PO SCH ×2 (09:33→21:46)
[2018-01-09] MEDS: FUROSEMIDE 40 MG/4 ML INJECTABLE VIAL IVPUSH SCH (09:33)
[2018-01-09] MEDS: CYANOCOBALAMIN 1,000 MCG TABLET (FP) PO SCH (09:34)
[2018-01-09] MEDS: ASPIRIN 81 MG CHEWABLE TABLETS PO SCH (09:34)
[2018-01-09] MEDS: CLOPIDOGREL BISULFATE 75 MG TABLET (FP) PO SCH (09:34)
[2018-01-09] MEDS: FERROUS SO4 325 MG TABLET (FP) PO SCH (09:34)
[2018-01-09] MEDS: GABAPENTIN 300 MG CAPSULE (FP) PO SCH ×4 (09:34→21:47)
[2018-01-09] MEDS: PANTOPRAZOLE 40 MG TABLET (FP) PO SCH (09:34)
[2018-01-09] MEDS: VALSARTAN 160 MG TABLET (UD) PO SCH ×2 (09:34→21:47)
--- NOTE | 2018-01-09 10:13 | PN ---
Progress Note (short form) - Note Progress Note: Vascular Surgery Pt seen and examined. recent trauma to right great toe. Area looks clean and pink. Pt has good palpable DP and PT pulses. Right 5th toe with black spot - looks benign. Santyl to right great toe. Compression with sushant for swelling in legs. Ba Caceres DO
[2018-01-09] MEDS: COLLAGENASE CLOSTRIDIUM HIST. 30 GRAMS TUBE TP SCH (17:21)
[2018-01-09] MEDS: MONTELUKAST NA 10 MG TABLET PO SCH (21:47)
--- NOTE | 2018-01-10 00:53 | PN ---
Progress Note, Physician - Current Medication List Current Medications: Active Medications Aspirin (Asa -) 81 mg PO DAILY [facility] Last Admin: 01/09/18 09:34 Dose: 81 mg Clopidogrel Bisulfate (Plavix -) 75 mg PO DAILY [facility] Last Admin: 01/09/18 09:34 Dose: 75 mg Collagenase (Santyl -) 1 applic TP DAILY [facility] Last Admin: 01/09/18 17:21 Dose: 1 applic Cyanocobalamin (Vitamin B12 -) 500 mcg PO DAILY [facility] Last Admin: 01/09/18 09:34 Dose: 500 mcg Docusate Sodium (Colace -) 100 mg PO TID [facility] Last Admin: 01/09/18 21:46 Dose: 100 mg Ferrous Sulfate (Feosol -) 325 mg PO DAILY [facility] Last Admin: 01/09/18 09:34 Dose: 325 mg Furosemide (Lasix Injection -) 40 mg IVPUSH DAILY [facility] Last Admin: 01/09/18 09:33 Dose: 40 mg Gabapentin (Neurontin -) 300 mg PO QID [facility] Last Admin: 01/09/18 21:47 Dose: 300 mg Metoprolol Succinate (Toprol Xl -) 50 mg PO DAILY [facility] Last Admin: 01/09/18 09:34 Dose: 50 mg Montelukast Sodium (Singulair -) 10 mg PO HS [facility] Last Admin: 01/09/18 21:47 Dose: 10 mg Oxycodone HCl (Oxycontin -) 10 mg PO BID [facility] Last Admin: 01/09/18 21:46 Dose: 10 mg Pantoprazole Sodium (Protonix -) 40 mg PO DAILY [facility] Last Admin: 01/09/18 09:34 Dose: 40 mg Valsartan (Diovan -) 160 mg PO BID [facility] Last Admin: 01/09/18 21:47 Dose: 160 mg - Objective Vital Signs: Vital Signs Temperature 98.0 F 01/09/18 18:00 Pulse Rate 85 01/09/18 18:00 Respiratory Rate 19 01/09/18 18:00 Blood Pressure 134/80 01/09/18 18:00 O2 Sat by Pulse Oximetry (%) 96 01/09/18 21:00 Labs: CBC, BMP 01/06/18 22:13 01/06/18 22:13 INR, PTT INR 1.12 (0.82-1.09) 01/06/18 22:13 Problem List - Problems (1) Acute on chronic diastolic (congestive) heart failure Code(s): I50.33 - ACUTE ON CHRONIC DIASTOLIC (CONGESTIVE) HEART FAILURE (2) Anemia Code(s): D64.9 - ANEMIA, UNSPECIFIED (3) HTN (hypertension) Code(s): I10 - ESSENTIAL (PRIMARY) HYPERTENSION (4) Lumbar radiculopathy Code(s): M54.16 - RADICULOPATHY, LUMBAR REGION (5) CAD (coronary artery disease) Code(s): I25.10 - ATHSCL HEART DISEASE OF [place] CORONARY ARTERY W/O ANG PCTRS (6) Hx of heart artery stent Code(s): Z95.5 - PRESENCE OF CORONARY ANGIOPLASTY IMPLANT AND GRAFT (7) Hx of myocardial infarction Code(s): I25.2 - OLD MYOCARDIAL INFARCTION (8) HLD (hyperlipidemia) Code(s): E78.5 - HYPERLIPIDEMIA, UNSPECIFIED
[2018-01-10] MEDS: DOCUSATE SODIUM 100 MG CAPSULE (FP) PO SCH ×3 (05:54→21:42)
[2018-01-10] MEDS: oxyCODONE HCL 10 MG SUSTAINED ACTING TABLET PO SCH ×2 (09:39→21:41)
[2018-01-10] MEDS: COLLAGENASE CLOSTRIDIUM HIST. 30 GRAMS TUBE TP SCH (09:42)
[2018-01-10] MEDS: PANTOPRAZOLE 40 MG TABLET (FP) PO SCH (10:25)
[2018-01-10] MEDS: VALSARTAN 160 MG TABLET (UD) PO SCH ×2 (10:25→21:41)
[2018-01-10] MEDS: CYANOCOBALAMIN 1,000 MCG TABLET (FP) PO SCH (10:25)
[2018-01-10] MEDS: CLOPIDOGREL BISULFATE 75 MG TABLET (FP) PO SCH (10:25)
[2018-01-10] MEDS: ASPIRIN 81 MG CHEWABLE TABLETS PO SCH (10:25)
[2018-01-10] MEDS: GABAPENTIN 300 MG CAPSULE (FP) PO SCH ×4 (10:25→21:41)
[2018-01-10] MEDS: FERROUS SO4 325 MG TABLET (FP) PO SCH (10:26)
[2018-01-10] MEDS: FUROSEMIDE 40 MG/4 ML INJECTABLE VIAL IVPUSH SCH (10:26)
--- NOTE | 2018-01-10 13:58 | PN ---
Progress Note, Physician Chief Complaint: Pt A&Ox3; no chest pain or dyspnea; no leg pain ; constipation resolved. History of Present Illness: 72 y/o male with multiple back and neck surgeries-->cervical spine surgery x 2, with chronic pain (on oxycodone for years, with enxuing chronic constipation) , fractured right ankle-->surgery years ago, with chronic swelling and secreased ROM, HTN, CAD (?hx of a "small heart attack")with 2 stents (placed about a month ago), prostate CA-->prostatecomy, Lupron; testosterone sots; penile implant; now c/o b/l leg swelling x the past few days. HISTORY OF PRESENT ILLNESS: The patient states his leg have never been this swollen before. He denies f/c, n/v/d, CP, SOB, hemoptysis, orthopnea, abd pain. Vital signs on arrival are within normal limits. - Current Medication List Current Medications: Active Medications Aspirin (Asa -) 81 mg PO DAILY [facility] Last Admin: 01/10/18 10:25 Dose: 81 mg Clopidogrel Bisulfate (Plavix -) 75 mg PO DAILY [facility] Last Admin: 01/10/18 10:25 Dose: 75 mg Collagenase (Santyl -) 1 applic TP DAILY [facility] Last Admin: 01/10/18 09:42 Dose: 1 applic Cyanocobalamin (Vitamin B12 -) 500 mcg PO DAILY [facility] Last Admin: 01/10/18 10:25 Dose: 500 mcg Docusate Sodium (Colace -) 100 mg PO TID [facility] Last Admin: 01/10/18 05:54 Dose: 100 mg Ferrous Sulfate (Feosol -) 325 mg PO DAILY [facility] Last Admin: 01/10/18 10:26 Dose: 325 mg Furosemide (Lasix Injection -) 40 mg IVPUSH DAILY [facility] Last Admin: 01/10/18 10:26 Dose: 40 mg Gabapentin (Neurontin -) 300 mg PO QID [facility] Last Admin: 01/10/18 10:25 Dose: 300 mg Metoprolol Succinate (Toprol Xl -) 50 mg PO DAILY [facility] Last Admin: 01/10/18 10:25 Dose: 50 mg Montelukast Sodium (Singulair -) 10 mg PO HS [facility] Last Admin: 01/09/18 21:47 Dose: 10 mg Oxycodone HCl (Oxycontin -) 10 mg PO BID [facility] Last Admin: 01/10/18 09:39 Dose: 10 mg Pantoprazole Sodium (Protonix -) 40 mg PO DAILY [facility] Last Admin: 01/10/18 10:25 Dose: 40 mg Valsartan (Diovan -) 160 mg PO BID [facility] Last Admin: 01/10/18 10:25 Dose: 160 mg - Objective Vital Signs: Vital Signs Temperature 98.4 F 01/10/18 06:00 Pulse Rate 78 01/10/18 06:00 Respiratory Rate 18 01/10/18 06:00 Blood Pressure 134/71 01/10/18 06:00 O2 Sat by Pulse Oximetry (%) 96 01/09/18 21:00 Constitutional: Yes: Calm Eyes: Yes: WNL HENT: Yes: WNL Neck: Yes: WNL Cardiovascular: Yes: S1 (split), S2 Respiratory: Yes: Regular Gastrointestinal: Yes: Soft ...Rectal Exam: Yes: Deferred Genitourinary: No: Anuria Extremities: Yes: WNL Edema: No Peripheral Pulses WNL: Yes Integumentary: Yes: WNL Psychiatric: Yes: WNL Labs: CBC, BMP 01/06/18 22:13 01/06/18 22:13 INR, PTT INR 1.12 (0.82-1.09) 01/06/18 22:13 Problem List - Problems (1) Acute on chronic diastolic (congestive) heart failure Assessment/Plan: On valsartan, metoprolol ER, furosemide. BNP 2590. F/u BUN/Cr, electrolytes, Is and Os, daily weight (6 lb loss in past 48 hours). Code(s): I50.33 - ACUTE ON CHRONIC DIASTOLIC (CONGESTIVE) HEART FAILURE (2) Severe mitral regurgitation Code(s): I34.0 - NONRHEUMATIC MITRAL (VALVE) INSUFFICIENCY (3) Hx of heart artery stent Assessment/Plan: Pt with 2 stents placed about a month ago. Pt give hx of [place] (?age). Recommend stopping Celebrex, and any other non-aspirin NSAIDs. Code(s): Z95.5 - PRESENCE OF CORONARY ANGIOPLASTY IMPLANT AND GRAFT (4) Hx of myocardial infarction Assessment/Plan: f/u cardiac records Code(s): I25.2 - OLD MYOCARDIAL INFARCTION (5) Fe deficiency anemia Assessment/Plan: on iron supplements. Code(s): D50.9 - IRON DEFICIENCY ANEMIA, UNSPECIFIED (6) Autoimmune disease Assessment/Plan: pt is on methotrexate and methocarbamate. 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 F/u with pt's environmental technology professor. Code(s): D89.89 - OTH DISRD INVOLVING THE IMMUNE MECHANISM, NEC (7) Prostate CA Code(s): C61 - MALIGNANT NEOPLASM OF PROSTATE (8) COPD (chronic obstructive pulmonary disease) Assessment/Plan: ?hx asbestosis; f/u records. Code(s): J44.9 - CHRONIC OBSTRUCTIVE PULMONARY DISEASE, UNSPECIFIED (9) Erectile dysfunction Assessment/Plan: exacerbated after prostate surgery; -->penile implant. Code(s): N52.9 - MALE ERECTILE DYSFUNCTION, UNSPECIFIED (10) Chronic back pain Assessment/Plan: hx lumbar and cervical spine surgeries Code(s): M54.9 - DORSALGIA, UNSPECIFIED; G89.29 - OTHER CHRONIC PAIN
--- NOTE | 2018-01-10 20:06 | PN ---
Progress Note, Physician - Current Medication List Current Medications: Active Medications Aspirin (Asa -) 81 mg PO DAILY [facility] Last Admin: 01/10/18 10:25 Dose: 81 mg Clopidogrel Bisulfate (Plavix -) 75 mg PO DAILY [facility] Last Admin: 01/10/18 10:25 Dose: 75 mg Collagenase (Santyl -) 1 applic TP DAILY [facility] Last Admin: 01/10/18 09:42 Dose: 1 applic Cyanocobalamin (Vitamin B12 -) 500 mcg PO DAILY [facility] Last Admin: 01/10/18 10:25 Dose: 500 mcg Docusate Sodium (Colace -) 100 mg PO TID [facility] Last Admin: 01/10/18 14:00 Dose: 100 mg Ferrous Sulfate (Feosol -) 325 mg PO DAILY [facility] Last Admin: 01/10/18 10:26 Dose: 325 mg Furosemide (Lasix Injection -) 40 mg IVPUSH DAILY [facility] Last Admin: 01/10/18 10:26 Dose: 40 mg Gabapentin (Neurontin -) 300 mg PO QID [facility] Last Admin: 01/10/18 18:13 Dose: 300 mg Metoprolol Succinate (Toprol Xl -) 50 mg PO DAILY [facility] Last Admin: 01/10/18 10:25 Dose: 50 mg Montelukast Sodium (Singulair -) 10 mg PO HS [facility] Last Admin: 01/09/18 21:47 Dose: 10 mg Oxycodone HCl (Oxycontin -) 10 mg PO BID [facility] Last Admin: 01/10/18 09:39 Dose: 10 mg Pantoprazole Sodium (Protonix -) 40 mg PO DAILY [facility] Last Admin: 01/10/18 10:25 Dose: 40 mg Valsartan (Diovan -) 160 mg PO BID [facility] Last Admin: 01/10/18 10:25 Dose: 160 mg - Objective Vital Signs: Vital Signs Temperature 98.8 F 01/10/18 17:00 Pulse Rate 78 01/10/18 17:00 Respiratory Rate 18 01/10/18 17:00 Blood Pressure 129/67 01/10/18 17:00 O2 Sat by Pulse Oximetry (%) 96 01/10/18 10:00 Labs: CBC, BMP 01/06/18 22:13 01/06/18 22:13 INR, PTT INR 1.12 (0.82-1.09) 01/06/18 22:13 Problem List - Problems (1) Acute on chronic diastolic (congestive) heart failure Code(s): I50.33 - ACUTE ON CHRONIC DIASTOLIC (CONGESTIVE) HEART FAILURE (2) Anemia Code(s): D64.9 - ANEMIA, UNSPECIFIED (3) HTN (hypertension) Code(s): I10 - ESSENTIAL (PRIMARY) HYPERTENSION (4) Lumbar radiculopathy Code(s): M54.16 - RADICULOPATHY, LUMBAR REGION (5) CAD (coronary artery disease) Code(s): I25.10 - ATHSCL HEART DISEASE OF [place] CORONARY ARTERY W/O ANG PCTRS (6) Hx of heart artery stent Code(s): Z95.5 - PRESENCE OF CORONARY ANGIOPLASTY IMPLANT AND GRAFT (7) Hx of myocardial infarction Code(s): I25.2 - OLD MYOCARDIAL INFARCTION (8) HLD (hyperlipidemia) Code(s): E78.5 - HYPERLIPIDEMIA, UNSPECIFIED
[2018-01-10] MEDS: MONTELUKAST NA 10 MG TABLET PO SCH (21:49)
[2018-01-11] MEDS: DOCUSATE SODIUM 100 MG CAPSULE (FP) PO SCH ×3 (05:18→22:07)
--- NOTE | 2018-01-11 09:00 | PN ---
Progress Note, Physician Chief Complaint: Pt A&Ox3; no chest pain or dyspnea; no leg pain ; constipation resolved. Ambulating in hallway. History of Present Illness: 72 y/o male with multiple back and neck surgeries-->cervical spine surgery x 2 and lumbar spine surgery, with chronic pain (on oxycodone for years, with ensuing chronic constipation), fractured right ankle-->surgery years ago, with chronic swelling and decreased ROM, HTN, CAD (?hx of a "small heart attack") with 2 stents (placed about a month ago), prostate CA-->prostatecomy, Lupron; testosterone shots; penile implant; now c/o b/l leg swelling x the past few days. HISTORY OF PRESENT ILLNESS: The patient states his legs have never been this swollen before (except for right ankle, after fracture). He denies f/c, n/v/d, CP, SOB, hemoptysis, orthopnea, abd pain. Vital signs on arrival are within normal limits. - Current Medication List Current Medications: Active Medications Aspirin (Asa -) 81 mg PO DAILY [facility] Last Admin: 01/10/18 10:25 Dose: 81 mg Clopidogrel Bisulfate (Plavix -) 75 mg PO DAILY [facility] Last Admin: 01/10/18 10:25 Dose: 75 mg Collagenase (Santyl -) 1 applic TP DAILY [facility] Last Admin: 01/10/18 09:42 Dose: 1 applic Cyanocobalamin (Vitamin B12 -) 500 mcg PO DAILY [facility] Last Admin: 01/10/18 10:25 Dose: 500 mcg Docusate Sodium (Colace -) 100 mg PO TID [facility] Last Admin: 01/11/18 05:18 Dose: 100 mg Ferrous Sulfate (Feosol -) 325 mg PO DAILY [facility] Last Admin: 01/10/18 10:26 Dose: 325 mg Furosemide (Lasix Injection -) 40 mg IVPUSH DAILY [facility] Last Admin: 01/10/18 10:26 Dose: 40 mg Gabapentin (Neurontin -) 300 mg PO QID [facility] Last Admin: 01/10/18 21:41 Dose: 300 mg Metoprolol Succinate (Toprol Xl -) 50 mg PO DAILY [facility] Last Admin: 01/10/18 10:25 Dose: 50 mg Montelukast Sodium (Singulair -) 10 mg PO HS [facility] Last Admin: 01/10/18 21:49 Dose: 10 mg Oxycodone HCl (Oxycontin -) 10 mg PO BID [facility] Last Admin: 01/10/18 21:41 Dose: 10 mg Pantoprazole Sodium (Protonix -) 40 mg PO DAILY [facility] Last Admin: 01/10/18 10:25 Dose: 40 mg Valsartan (Diovan -) 160 mg PO BID [facility] Last Admin: 01/10/18 21:41 Dose: 160 mg - Objective Vital Signs: Vital Signs Temperature 97.5 F L 01/11/18 05:22 Pulse Rate 70 01/11/18 05:22 Respiratory Rate 20 01/11/18 05:22 Blood Pressure 131/76 01/11/18 05:22 O2 Sat by Pulse Oximetry (%) 97 01/10/18 21:00 Constitutional: Yes: No Distress Eyes: Yes: WNL HENT: Yes: WNL Neck: Yes: WNL Cardiovascular: Yes: WNL Respiratory: Yes: WNL Gastrointestinal: Yes: WNL ...Rectal Exam: Yes: Deferred Genitourinary: No: Anuria Musculoskeletal: Yes: WNL Edema: No Peripheral Pulses WNL: Yes Integumentary: Yes: WNL Neurological: Yes: WNL Psychiatric: Yes: WNL Labs: CBC, BMP 01/06/18 22:13 01/06/18 22:13 INR, PTT INR 1.12 (0.82-1.09) 01/06/18 22:13 Problem List - Problems (1) Acute on chronic diastolic (congestive) heart failure Assessment/Plan: On valsartan, metoprolol ER, furosemide. BNP 2590. F/u BUN/Cr, electrolytes, Is and Os, daily weight (10 lb loss in past 72 hours). Code(s): I50.33 - ACUTE ON CHRONIC DIASTOLIC (CONGESTIVE) HEART FAILURE (2) Severe mitral regurgitation Code(s): I34.0 - NONRHEUMATIC MITRAL (VALVE) INSUFFICIENCY (3) Hx of heart artery stent Assessment/Plan: Pt with 2 stents placed about a month ago. Pt give hx of [place] (?age). Recommend stopping Celebrex, and any other non-aspirin NSAIDs. F/u stent reports. ASA, clopidogrel. Code(s): Z95.5 - PRESENCE OF CORONARY ANGIOPLASTY IMPLANT AND GRAFT (4) Hx of myocardial infarction Assessment/Plan: f/u cardiac records Code(s): I25.2 - OLD MYOCARDIAL INFARCTION (5) Fe deficiency anemia Assessment/Plan: on iron supplements. Code(s): D50.9 - IRON DEFICIENCY ANEMIA, UNSPECIFIED (6) Autoimmune disease Assessment/Plan: pt is on methotrexate and methocarbamate. 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 F/u with pt's director alliance marketing. Consider chest CT. Code(s): D89.89 - OTH DISRD INVOLVING THE IMMUNE MECHANISM, NEC (7) Prostate CA Code(s): C61 - MALIGNANT NEOPLASM OF PROSTATE (8) Prolonged QT interval Assessment/Plan: f/u EKG. Code(s): R94.31 - ABNORMAL ELECTROCARDIOGRAM [ECG] [EKG]
[2018-01-11] MEDS: ASPIRIN 81 MG CHEWABLE TABLETS PO SCH (10:23)
[2018-01-11] MEDS: GABAPENTIN 300 MG CAPSULE (FP) PO SCH ×3 (10:23→22:08)
[2018-01-11] MEDS: FERROUS SO4 325 MG TABLET (FP) PO SCH (10:23)
[2018-01-11] MEDS: CYANOCOBALAMIN 1,000 MCG TABLET (FP) PO SCH (10:23)
[2018-01-11] MEDS: VALSARTAN 160 MG TABLET (UD) PO SCH ×2 (10:23→22:07)
[2018-01-11] MEDS: CLOPIDOGREL BISULFATE 75 MG TABLET (FP) PO SCH (10:23)
[2018-01-11] MEDS: oxyCODONE HCL 10 MG SUSTAINED ACTING TABLET PO SCH ×2 (10:24→22:08)
[2018-01-11] MEDS: FUROSEMIDE 40 MG/4 ML INJECTABLE VIAL IVPUSH SCH (10:24)
[2018-01-11] MEDS: PANTOPRAZOLE 40 MG TABLET (FP) PO SCH (10:24)
[2018-01-11] MEDS: COLLAGENASE CLOSTRIDIUM HIST. 30 GRAMS TUBE TP SCH (10:24)
[2018-01-11 10:34] LABS: ANION GAP 6 (8-16); BLOOD UREA NITROGEN 16 mg/dL (7-18); CHLORIDE 106 mmol/L (98-107); CO2 29 mmol/L (21-32); CREATININE 0.7 mg/dL (0.7-1.3); GLUCOSE,RANDOM 87 mg/dL (74-106); POTASSIUM 3.8 mmol/L (3.5-5.1); SODIUM 141 mmol/L (136-145)
[2018-01-11 10:50] LABS: BASO % 0.6 % (0-2.0); EOS % 8.9 % (0-4.5); HEMATOCRIT 31.8 % (35.4-49); HEMOGLOBIN 10.7 GM/dL (11.7-16.9); LYMPH % 22.7 % (8-40); MCH 33.2 pg (25.7-33.7); MCHC 33.5 g/dl (32.0-35.9); MEAN CELL VOLUME 99.1 fl (80-96); MEAN PLT VOLUME 6.8 fl (7.5-11.1); MONO % 11.2 % (3.8-10.2); NEUT % 56.6 % (42.8-82.8); PLATELET COUNT 398 K/MM3 (134-434); RBC 3.21 M/mm3 (4.00-5.60); RDW 15.6 % (11.9-15.9); WHITE BLOOD COUNT 6.9 K/mm3 (4.0-10.0)
[2018-01-11] MEDS: MONTELUKAST NA 10 MG TABLET PO SCH (22:08)
--- NOTE | 2018-01-11 23:50 | PN ---
Progress Note, Physician History of Present Illness: No new complaints - Current Medication List Current Medications: Active Medications Aspirin (Asa -) 81 mg PO DAILY [facility] Last Admin: 01/11/18 10:23 Dose: 81 mg Clopidogrel Bisulfate (Plavix -) 75 mg PO DAILY [facility] Last Admin: 01/11/18 10:23 Dose: 75 mg Collagenase (Santyl -) 1 applic TP DAILY [facility] Last Admin: 01/11/18 10:24 Dose: 1 applic Cyanocobalamin (Vitamin B12 -) 500 mcg PO DAILY [facility] Last Admin: 01/11/18 10:23 Dose: 500 mcg Docusate Sodium (Colace -) 100 mg PO TID [facility] Last Admin: 01/11/18 22:07 Dose: 100 mg Ferrous Sulfate (Feosol -) 325 mg PO DAILY [facility] Last Admin: 01/11/18 10:23 Dose: 325 mg Furosemide (Lasix Injection -) 40 mg IVPUSH DAILY [facility] Last Admin: 01/11/18 10:24 Dose: 40 mg Gabapentin (Neurontin -) 300 mg PO QID [facility] Last Admin: 01/11/18 22:08 Dose: 300 mg Metoprolol Succinate (Toprol Xl -) 50 mg PO DAILY [facility] Last Admin: 01/11/18 10:23 Dose: 50 mg Montelukast Sodium (Singulair -) 10 mg PO HS [facility] Last Admin: 01/11/18 22:08 Dose: 10 mg Oxycodone HCl (Oxycontin -) 10 mg PO BID [facility] Last Admin: 01/11/18 22:08 Dose: 10 mg Pantoprazole Sodium (Protonix -) 40 mg PO DAILY [facility] Last Admin: 01/11/18 10:24 Dose: 40 mg Valsartan (Diovan -) 160 mg PO BID [facility] Last Admin: 01/11/18 22:07 Dose: 160 mg - Objective Vital Signs: Vital Signs Temperature 98.8 F 01/11/18 17:00 Pulse Rate 74 01/11/18 17:00 Respiratory Rate 18 01/11/18 17:00 Blood Pressure 132/63 01/11/18 17:00 O2 Sat by Pulse Oximetry (%) 97 01/11/18 09:00 Cardiovascular: Yes: WNL, Regular Rate and Rhythm Respiratory: Yes: WNL, Regular, CTA Bilaterally Gastrointestinal: Yes: WNL, Normal Bowel Sounds, Soft Edema: LLE: 1+, RLE: 1+ Labs: CBC, BMP 01/11/18 10:07 01/11/18 10:07 INR, PTT INR 1.12 (0.82-1.09) 01/06/18 22:13 Problem List - Problems (1) Acute on chronic diastolic (congestive) heart failure Assessment/Plan: Cont IV lasix Monitor electrolytes Check echo Code(s): I50.33 - ACUTE ON CHRONIC DIASTOLIC (CONGESTIVE) HEART FAILURE (2) Anemia Assessment/Plan: Cont Fe supplement Monitor H/H Code(s): D64.9 - ANEMIA, UNSPECIFIED (3) HTN (hypertension) Assessment/Plan: BP stable Cont valsartan/toprol Code(s): I10 - ESSENTIAL (PRIMARY) HYPERTENSION (4) Lumbar radiculopathy Assessment/Plan: Pt w/ multiple back surgeries Cont neurontin Code(s): M54.16 - RADICULOPATHY, LUMBAR REGION (5) CAD (coronary artery disease) Assessment/Plan: Cont plavix/asa Code(s): I25.10 - ATHSCL HEART DISEASE OF [place] CORONARY ARTERY W/O ANG PCTRS (6) Hx of heart artery stent Code(s): Z95.5 - PRESENCE OF CORONARY ANGIOPLASTY IMPLANT AND GRAFT (7) Hx of myocardial infarction Code(s): I25.2 - OLD MYOCARDIAL INFARCTION (8) HLD (hyperlipidemia) Code(s): E78.5 - HYPERLIPIDEMIA, UNSPECIFIED
[2018-01-12] MEDS: DOCUSATE SODIUM 100 MG CAPSULE (FP) PO SCH ×2 (05:58→15:02)
[2018-01-12] MEDS: FUROSEMIDE 40 MG/4 ML INJECTABLE VIAL IVPUSH SCH (09:38)
[2018-01-12] MEDS: ASPIRIN 81 MG CHEWABLE TABLETS PO SCH (09:38)
[2018-01-12] MEDS: VALSARTAN 160 MG TABLET (UD) PO SCH (09:38)
[2018-01-12] MEDS: CYANOCOBALAMIN 1,000 MCG TABLET (FP) PO SCH (09:39)
[2018-01-12] MEDS: CLOPIDOGREL BISULFATE 75 MG TABLET (FP) PO SCH (09:39)
[2018-01-12] MEDS: COLLAGENASE CLOSTRIDIUM HIST. 30 GRAMS TUBE TP SCH (09:39)
[2018-01-12] MEDS: GABAPENTIN 300 MG CAPSULE (FP) PO SCH ×3 (09:39→15:05)
[2018-01-12] MEDS: PANTOPRAZOLE 40 MG TABLET (FP) PO SCH (09:39)
[2018-01-12] MEDS: FERROUS SO4 325 MG TABLET (FP) PO SCH (09:40)
[2018-01-12] MEDS: oxyCODONE HCL 10 MG SUSTAINED ACTING TABLET PO SCH (09:53)
--- NOTE | 2018-01-12 11:19 | PN ---
Physical Exam: SUBJECTIVE: Patient seen and examined at the bedside. Feels well, in no acute distress. Denies chest pain, denies shortness of breath OBJECTIVE: Right foot great toe ulceration, pt states its from recent trauma, site cleansed by me with NS, santyl applied, bandaged Right foot 5th toe with pinpoint black spot, area surrounding skin without redness, no signs of infection Discharge once cleared by cardiology Respiratory pre and post prior to d/c Vital Signs Period Temp Pulse Resp BP Sys/Dyson Pulse Ox Last 24 Hr 97.6 F-99.1 F 73-84 18-22 114-143/60-80 97-99 GENERAL: The patient is awake, alert, and fully oriented, in no acute distress. HEAD: Normal with no signs of trauma. EYES: PERRL, extraocular movements intact, sclera anicteric, conjunctiva clear. No ptosis. ENT: Ears normal, nares patent, oropharynx clear without exudates, moist mucous membranes. NECK: Trachea midline, full range of motion, supple. large posterior neck scar LUNGS: diminished lungs sounds, no wheezing HEART: Regular rate and rhythm ABDOMEN: Soft, nontender, nondistended, normoactive bowel sounds, no guarding, no rebound, no hepatosplenomegaly, no masses. EXTREMITIES: no edema, right ankle deformation from previous surgery NEUROLOGICAL: Normal speech, gait not observed. PSYCH: Normal mood, normal affect. Active Medications Generic Name Dose Route Start Last Admin Trade Name Freq PRN Reason Stop Dose Admin Aspirin 81 mg 01/08/18 10:00 01/12/18 09:38 Asa - PO 81 mg DAILY [facility] Administration Clopidogrel Bisulfate 75 mg 01/08/18 17:45 01/12/18 09:39 Plavix - PO 75 mg DAILY [facility] Administration Collagenase 1 applic 01/09/18 11:00 01/12/18 09:39 Santyl - TP 1 applic DAILY [facility] Administration Cyanocobalamin 500 mcg 01/08/18 10:00 01/12/18 09:39 Vitamin B12 - PO 500 mcg DAILY [facility] Administration Docusate Sodium 100 mg 01/08/18 14:00 01/12/18 05:58 Colace - PO 100 mg TID [facility] Administration Ferrous Sulfate 325 mg 01/08/18 11:00 01/12/18 09:40 Feosol - PO 325 mg DAILY [facility] Administration Furosemide 40 mg 01/08/18 10:00 01/12/18 09:38 Lasix Injection - IVPUSH 40 mg DAILY [facility] Administration Gabapentin 300 mg 01/07/18 14:00 01/12/18 09:39 Neurontin - PO 300 mg QID [facility] Administration Metoprolol Succinate 50 mg 01/08/18 10:00 01/12/18 09:39 Toprol Xl - PO 50 mg DAILY [facility] Administration Montelukast Sodium 10 mg 01/07/18 22:00 01/11/18 22:08 Singulair - PO 10 mg HS [facility] Administration Oxycodone HCl 10 mg 01/07/18 22:00 01/12/18 09:53 Oxycontin - PO 10 mg BID [facility] Administration Pantoprazole Sodium 40 mg 01/08/18 11:00 01/12/18 09:39 Protonix - PO 40 mg DAILY [facility] Administration Valsartan 160 mg 01/07/18 22:00 01/12/18 09:38 Diovan - PO 160 mg BID [facility] Administration ASSESSMENT/PLAN:
--- NOTE | 2018-01-12 11:24 | EKG ---
Test Reason : Blood Pressure : / mmHG Vent. Rate : 082 BPM Atrial Rate : 082 BPM P-R Int : 224 ms QRS Dur : 104 ms QT Int : 412 ms P-R-T Axes : 064 -08 001 degrees QTc Int : 481 ms SINUS RHYTHM WITH 1ST DEGREE A-V BLOCK PROLONGED QT ABNORMAL ECG WHEN COMPARED WITH ECG OF 06-JAN-2018 22:31, NO SIGNIFICANT CHANGE WAS FOUND Confirmed by NI TREJO, CUCO ([id number]) on 01/12/2018 11:24:36 AM Referred By: Confirmed By:CUCO DAN MD
[2018-01-12] MEDS ORDERED: POLYETHYLENE GLYCOL 3350 119 GM BTL PO ONE (11:45)
[2018-01-12 14:26] VITALS: PULSE 105
--- NOTE | 2018-01-12 15:10 | DS ---
Physical Exam: SUBJECTIVE: Patient seen and examined OBJECTIVE: Vital Signs Period Temp Pulse Resp BP Sys/Dyson Pulse Ox Last 24 Hr 97.6 F-98.8 F 73-105 18-22 114-140/60-77 93-99 PHYSICAL EXAM GENERAL: The patient is awake, alert, and fully oriented, in no acute distress. HEAD: Normal with no signs of trauma. EYES: PERRL, extraocular movements intact, sclera anicteric, conjunctiva clear. ENT: Ears normal, nares patent, oropharynx clear without exudates, moist mucous membranes. NECK: Trachea midline, full range of motion, supple. LUNGS: Breath sounds equal, clear to auscultation bilaterally, no wheezes, no crackles, no accessory muscle use. HEART: Regular rate and rhythm, S1, S2 without murmur, rub or gallop. ABDOMEN: Soft, nontender, nondistended, normoactive bowel sounds, no guarding, no rebound, no hepatosplenomegaly, no masses. EXTREMITIES: 2+ pulses, warm, well-perfused, no edema. NEUROLOGICAL: Cranial nerves II through XII grossly intact. Normal speech, gait not observed. PSYCH: Normal mood, normal affect. SKIN: Warm, dry, normal turgor, no rashes or lesions noted. LABS HOSPITAL COURSE: Date of Admission:01/07/18 Date of Discharge: 01/12/18 Discharge Summary Reason For Visit: BODY ACHES/ANKLE PAIN Current Active Problems Acute on chronic diastolic (congestive) heart failure (Acute) Autoimmune disease (Acute) CAD (coronary artery disease) (Acute) COPD (chronic obstructive pulmonary disease) (Acute) Congestive heart failure (Acute) Erectile dysfunction (Acute) Fe deficiency anemia (Acute) Hx of heart artery stent (Acute) Hx of myocardial infarction (Acute) Prolonged QT interval (Acute) Prostate CA (Acute) Severe mitral regurgitation (Acute) Condition: Stable - Instructions Diet, Activity, Other Instructions: Mr. Tirado: Please follow up with your secretary specialist. I have also included the names of the cardiologists that attended you while you were hospitalized. As discussed, please weigh yourself daily and record the weights. If you notice an increase in your weights greater than 4 lbs in 1 week, please call your primary care physician or secretary specialist and report it. Please call me with any questions that you may have. continue your home medications as outlined in your discharge instructions: As per secretary specialist, recommend stopping Celebrex, and any other non-aspirin NSAIDs. F/u stent reports with your secretary specialist Continue Aspirin 81mg daily and Plavix 75mg daily Debbie Espino, GLENN [phone] [facility] Referrals: Leonard Lester MD [Primary Care Provider] - Disposition: HOME - Home Medications Comprehensive Discharge Medication List: Ambulatory Orders Aspirin [Rachelle Chewable Aspirin] 81 mg PO DAILY 04/03/17 Cyanocobalamin (Vitamin B-12) [B-12] 500 mcg PO DAILY 04/03/17 Febuxostat [Uloric -] 40 mg PO DAILY 04/03/17 Gabapentin 300 mg PO QID 04/03/17 Iron 28 mg PO DAILY 04/03/17 Methocarbamol 750 mg PO BID 04/03/17 Methotrexate Sodium [Methotrexate] 2.5 mg PO DAILY 04/03/17 Montelukast Na [Singulair -] 10 mg PO HS 04/03/17 Omeprazole Magnesium [Prilosec] 10 mg PO DAILY 04/03/17 Valsartan [Diovan] 160 mg PO BID 04/03/17 Zolpidem Tartrate [Ambien] 10 mg PO DAILY 04/03/17 Oxycodone HCl [Oxycodone HCl ER] 10 mg PO BID 10/28/17 Oxycodone HCl/Acetaminophen [Percocet 10-325 mg Tablet] 1 each PO TID PRN Clopidogrel Bisulfate [Plavix -] 75 mg PO DAILY #30 tablet 01/12/18 Ferrous Sulfate [Feosol] 325 mg PO DAILY [facility] 01/12/18 Furosemide [Lasix] 40 mg PO DAILY #30 tablet 01/12/18 Metoprolol Succinate [Toprol XL -] 50 mg PO DAILY #30 tab.sr.24h 01/12/18
[2018-01-12 15:11] VITALS: BP 144/66; TEMP 98.5
--- NOTE | 2018-01-12 16:51 | PN ---
Progress Note, Physician History of Present Illness: 72 y/o male with multiple back and neck surgeries with chronic pain, HTN, CAD with 2 stents c/o b/l leg swelling x the past few days. - Objective Vital Signs: Vital Signs Temperature 98.5 F 01/12/18 14:00 Pulse Rate 105 H 01/12/18 14:25 Respiratory Rate 20 01/12/18 14:00 Blood Pressure 144/66 01/12/18 14:00 O2 Sat by Pulse Oximetry (%) 93 L 01/12/18 14:25 Eyes: Yes: WNL, Conjunctiva Clear, EOM Intact HENT: Yes: WNL, Atraumatic, Normocephalic Neck: Yes: WNL, Supple, Trachea Midline Cardiovascular: Yes: WNL, Regular Rate and Rhythm Respiratory: Yes: WNL, Regular, CTA Bilaterally Gastrointestinal: Yes: WNL, Normal Bowel Sounds Genitourinary: Yes: WNL Musculoskeletal: Yes: WNL Extremities: Yes: WNL Edema: No Integumentary: Yes: WNL Neurological: Yes: WNL, Alert, Oriented ...Motor Strength: WNL Psychiatric: Yes: WNL Labs: CBC, BMP 01/11/18 10:07 01/11/18 10:07 INR, PTT INR 1.12 (0.82-1.09) 01/06/18 22:13 Problem List - Problems (1) Congestive heart failure Code(s): I50.9 - HEART FAILURE, UNSPECIFIED Qualifiers: Heart failure type: unspecified Heart failure chronicity: acute Qualified Code(s): I50.9 - Heart failure, unspecified (2) Acute renal failure Code(s): N17.9 - ACUTE KIDNEY FAILURE, UNSPECIFIED (3) Altered mental status Code(s): R41.82 - ALTERED MENTAL STATUS, UNSPECIFIED Qualifiers: Altered mental status type: transient alteration of awareness Qualified Code(s): R40.4 - Transient alteration of awareness (4) Anemia Code(s): D64.9 - ANEMIA, UNSPECIFIED (5) Ankle and foot joint derangement Code(s): M24.9 - JOINT DERANGEMENT, UNSPECIFIED (6) Arthritis Code(s): M19.90 - UNSPECIFIED OSTEOARTHRITIS, UNSPECIFIED SITE (7) Chronic back pain Code(s): M54.9 - DORSALGIA, UNSPECIFIED; G89.29 - OTHER CHRONIC PAIN (8) GERD (gastroesophageal reflux disease) Code(s): K21.9 - GASTRO-ESOPHAGEAL REFLUX DISEASE WITHOUT ESOPHAGITIS (9) GI bleed Code(s): K92.2 - GASTROINTESTINAL HEMORRHAGE, UNSPECIFIED (10) HLD (hyperlipidemia) Code(s): E78.5 - HYPERLIPIDEMIA, UNSPECIFIED (11) HTN (hypertension) Code(s): I10 - ESSENTIAL (PRIMARY) HYPERTENSION (12) Intractable back pain Code(s): M54.9 - DORSALGIA, UNSPECIFIED (13) Low blood pressure Code(s): I95.9 - HYPOTENSION, UNSPECIFIED Qualifiers: Qualified Code(s): I95.9 - Hypotension, unspecified (14) Lumbar radiculopathy Code(s): M54.16 - RADICULOPATHY, LUMBAR REGION (15) S/P lumbar fusion Code(s): Z98.1 - ARTHRODESIS STATUS (16) Sepsis Code(s): A41.9 - SEPSIS, UNSPECIFIED ORGANISM Qualifiers: Sepsis type: sepsis due to unspecified organism Qualified Code(s): A41.9 - Sepsis, unspecified organism (17) Syncope Code(s): R55 - SYNCOPE AND COLLAPSE (18) Tachycardia Code(s): R00.0 - TACHYCARDIA, UNSPECIFIED (19) UTI (urinary tract infection) Code(s): N39.0 - URINARY TRACT INFECTION, SITE NOT SPECIFIED Qualifiers: Urinary tract infection type: site unspecified Hematuria presence: with hematuria Qualified Code(s): N39.0 - Urinary tract infection, site not specified (20) Weakness Code(s): R53.1 - WEAKNESS Assessment/Plan Problems (1) Acute on chronic diastolic (congestive) heart failure Assessment/Plan: On valsartan, metoprolol ER, furosemide. BNP 2590. F/u BUN/Cr, electrolytes, Is and Os, daily weight (10 lb loss in past 72 hours). Code(s): I50.33 - ACUTE ON CHRONIC DIASTOLIC (CONGESTIVE) HEART FAILURE (2) Severe mitral regurgitation Code(s): I34.0 - NONRHEUMATIC MITRAL (VALVE) INSUFFICIENCY (3) Hx of heart artery stent Assessment/Plan: Pt with 2 stents placed about a month ago. Pt give hx of [place] (?age). Recommend stopping Celebrex, and any other non-aspirin NSAIDs. F/u stent reports. ASA, clopidogrel. Code(s): Z95.5 - PRESENCE OF CORONARY ANGIOPLASTY IMPLANT AND GRAFT (4) Hx of myocardial infarction Assessment/Plan: f/u cardiac records Code(s): I25.2 - OLD MYOCARDIAL INFARCTION (5) Fe deficiency anemia Assessment/Plan: on iron supplements. Code(s): D50.9 - IRON DEFICIENCY ANEMIA, UNSPECIFIED (6) Autoimmune disease Assessment/Plan: pt is on methotrexate and methocarbamate. 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 F/u with pt's claim analyst. Consider chest CT. Code(s): D89.89 - OTH DISRD INVOLVING THE IMMUNE MECHANISM, NEC (7) Prostate CA Code(s): C61 - MALIGNANT NEOPLASM OF PROSTATE (8) Prolonged QT interval Assessment/Plan: f/u EKG. Code(s): R94.31 - ABNORMAL ELECTROCARDIOGRAM [ECG] [EKG]
== END 2018-01-12 15:57 | disposition home or self-care (01) | DRG 292 ==
LOC: JER 20:14 → JERBED 01-07 00:30 → J4W 01-07 20:43
PROVIDERS: ADMIT Internal Medicine; ATTEND Nurse Practitioner Family
DX: I11.0 Hypertensive heart disease with heart failure (principal); L97.518 Non-pressure chronic ulcer of other part of right foot with other specified severity; I50.33 Acute on chronic diastolic (congestive) heart failure; G89.29 Other chronic pain; K21.9 Gastro-esophageal reflux disease without esophagitis; M54.9 Dorsalgia, unspecified; E78.5 Hyperlipidemia, unspecified; Z85.46 Personal history of malignant neoplasm of prostate; I34.0 Nonrheumatic mitral (valve) insufficiency; D50.9 Iron deficiency anemia, unspecified; M54.16 Radiculopathy, lumbar region; I25.2 Old myocardial infarction; J44.9 Chronic obstructive pulmonary disease, unspecified; I45.81 Long QT syndrome; Z95.5 Presence of coronary angioplasty implant and graft; D89.89 Other specified disorders involving the immune mechanism, not elsewhere classified
CPT/HCPCS: 36415; 71045-TC-FY; 80048; 80053; 80061; 81003; 81015; 83721; 83880; 84484; 85025; 85610; 85730; 87086; 93005; 93010; 93306-TC; 94761; 99284-25

== ENCOUNTER 2018-01-13 19:54 | Inpatient (IN) | payer OTHER, BC ==
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
[2018-01-13 21:34] LABS: EOS % 8.1 % (0-4.5); HEMATOCRIT 34.3 % (35.4-49); HEMOGLOBIN 11.7 GM/dL (11.7-16.9); LYMPH % 23.4 % (8-40); MCH 33.8 pg (25.7-33.7); MEAN CELL VOLUME 99.3 fl (80-96); MEAN PLT VOLUME 6.7 fl (7.5-11.1); MONO % 9.8 % (3.8-10.2); NEUT % 57.7 % (42.8-82.8); PLATELET COUNT 405 K/MM3 (134-434); RBC 3.45 M/mm3 (4.00-5.60); RDW 14.7 % (11.9-15.9); WHITE BLOOD COUNT 7.7 K/mm3 (4.0-10.0)
[2018-01-13 21:58] LABS: INR 1.11 (0.82-1.09); PROTHROMBIN TIME (PATIENT) 12.5 SEC (9.98-11.88)
[2018-01-13 22:05] LABS: ALBUMIN 3.6 g/dl (3.4-5.0); ANION GAP 7 (8-16); BILIRUBIN,TOTAL 0.6 mg/dL (0.2-1.0); BLOOD UREA NITROGEN 33 mg/dL (7-18); CALCIUM 8.5 mg/dL (8.5-10.1); CHLORIDE 104 mmol/L (98-107); CO2 30 mmol/L (21-32); CREATININE 1.1 mg/dL (0.7-1.3); GLUCOSE,RANDOM 98 mg/dL (74-106); POTASSIUM 3.9 mmol/L (3.5-5.1); SGOT/AST 14 U/L (15-37); SGPT/ALT 18 U/L (12-78); SODIUM 141 mmol/L (136-145); TOT PROT 5.8 g/dl (6.4-8.2)
[2018-01-13 22:08] LABS: ALK PHOS 75 U/L (45-117)
[2018-01-14] MEDS ORDERED: morphine CARPU-JECT 2 MG/1 ML DISP.SYRIN IVPUSH ONE (01:31)
[2018-01-14] MEDS ORDERED: MORPHINE SULFATE 10 MG/1 ML *VIAL ONE (01:33)
[2018-01-14 03:19] VITALS: BMI 26.7
[2018-01-14 07:31] LABS: HEMATOCRIT 30.9 % (35.4-49); HEMOGLOBIN 10.6 GM/dL (11.7-16.9); MCH 33.7 pg (25.7-33.7); MCHC 34.2 g/dl (32.0-35.9); MEAN CELL VOLUME 98.5 fl (80-96); MEAN PLT VOLUME 7.6 fl (7.5-11.1); PLATELET COUNT 423 K/MM3 (134-434); RBC 3.13 M/mm3 (4.00-5.60); RDW 15.1 % (11.9-15.9); WHITE BLOOD COUNT 6.5 K/mm3 (4.0-10.0)
[2018-01-14 07:59] LABS: CHLORIDE 104 mmol/L (98-107); POTASSIUM 4.1 mmol/L (3.5-5.1); SODIUM 141 mmol/L (136-145)
[2018-01-14 08:09] LABS: ALBUMIN 3.3 g/dl (3.4-5.0); ALK PHOS 68 U/L (45-117); ANION GAP 9 (8-16); BILIRUBIN,TOTAL 0.8 mg/dL (0.2-1.0); BLOOD UREA NITROGEN 29 mg/dL (7-18); CALCIUM 8.6 mg/dL (8.5-10.1); CO2 28 mmol/L (21-32); CREATININE 0.8 mg/dL (0.7-1.3); GLUCOSE,RANDOM 84 mg/dL (74-106); SGOT/AST 17 U/L (15-37); SGPT/ALT 17 U/L (12-78); TOT PROT 5.2 g/dl (6.4-8.2)
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
--- NOTE | 2018-01-14 11:38 | EKG ---
Test Reason : Blood Pressure : / mmHG Vent. Rate : 067 BPM Atrial Rate : 066 BPM P-R Int : 000 ms QRS Dur : 098 ms QT Int : 442 ms P-R-T Axes : 000 003 -09 degrees QTc Int : 467 ms non interpretable ekg due to electrical interference - please repeat ABNORMAL ECG Confirmed by RAMIN TREJO, POLO ([id number]) on 01/14/2018 11:38:40 AM Referred By: Confirmed By:POLO FAUSTIN MD
[2018-01-14] MEDS: GABAPENTIN 300 MG CAPSULE (FP) PO SCH ×3 (16:12→22:29)
[2018-01-14] MEDS: ASPIRIN 81 MG CHEWABLE TABLETS PO SCH (16:12)
[2018-01-14] MEDS: CLOPIDOGREL BISULFATE 75 MG TABLET (FP) PO SCH (16:12)
[2018-01-14] MEDS: FERROUS SO4 325 MG TABLET (FP) PO SCH (16:12)
[2018-01-14] MEDS: FUROSEMIDE 40 MG TABLET (FP) PO SCH (16:12)
[2018-01-14] MEDS: FEBUXOSTAT 40 MG TAB PO SCH (16:13)
--- NOTE | 2018-01-14 17:40 | HP ---
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 Cardiovascular: Yes: HTN, Hyperlipdemia Gastrointestinal: Yes: GERD Heme/Onc: Yes: Anemia, Other (Prostate cancer) Musculoskeletal: Yes: Other (Chronic rt ankle pain) Rheumatology: Yes: Gout - Smoking History Smoking history: Unknown if ever smoked Have you smoked in the past 12 months: No - Alcohol/Substance Use Hx Alcohol Use: Yes (2 DRINKS DAILY) History of Substance Use: reports: None - Social History ADL: Independent History of Recent Travel: No Home Medications - Allergies Allergies/Adverse Reactions: Allergies Allergy/AdvReac Type Severity Reaction Status Date / Time No Known Drug Allergies Allergy Verified 01/13/18 20:04 - Home Medications Home Medications: Ambulatory Orders Aspirin [Rachelle Chewable Aspirin] 81 mg PO DAILY 04/03/17 Cyanocobalamin (Vitamin B-12) [B-12] 500 mcg PO DAILY 04/03/17 Febuxostat [Uloric -] 40 mg PO DAILY 04/03/17 Gabapentin 300 mg PO QID 04/03/17 Iron 28 mg PO DAILY 04/03/17 Methocarbamol 750 mg PO BID 04/03/17 Methotrexate Sodium [Methotrexate] 2.5 mg PO DAILY 04/03/17 Montelukast Na [Singulair -] 10 mg PO HS 04/03/17 Omeprazole Magnesium [Prilosec] 10 mg PO DAILY 04/03/17 Valsartan [Diovan] 160 mg PO BID 04/03/17 Zolpidem Tartrate [Ambien] 10 mg PO DAILY 04/03/17 Oxycodone HCl [Oxycodone HCl ER] 10 mg PO BID 10/28/17 Oxycodone HCl/Acetaminophen [Percocet 10-325 mg Tablet] 1 each PO TID PRN Clopidogrel Bisulfate [Plavix -] 75 mg PO DAILY #30 tablet 01/12/18 Ferrous Sulfate [Feosol] 325 mg PO DAILY ud 01/12/18 Furosemide [Lasix] 40 mg PO DAILY #30 tablet 01/12/18 Metoprolol Succinate [Toprol XL -] 50 mg PO DAILY #30 tab.sr.24h 01/12/18 Potassium Chloride 20 meq PO DAILY #30 tablet.er 01/12/18 Physical Examination Vital Signs: Vital Signs Temperature 98 F 04/04/18 14:30 Pulse Rate 86 01/14/18 14:30 Respiratory Rate 18 01/14/18 14:30 Blood Pressure 112/49 01/14/18 14:30 O2 Sat by Pulse Oximetry (%) 100 01/14/18 09:00 Labs: CBC, BMP 01/14/18 07:04 01/14/18 07:04
[2018-01-14] MEDS ORDERED: METHOCARBAMOL 750 MG TABLET PO SCH (22:00)
[2018-01-14] MEDS ORDERED: PT OWN MED DRAWER 7, Y5N ONE (22:12)
[2018-01-14] MEDS: oxyCODONE HCL 10 MG SUSTAINED ACTING TABLET PO SCH (22:28)
[2018-01-14] MEDS: VALSARTAN 160 MG TABLET (UD) PO SCH (22:28)
[2018-01-14] MEDS: MONTELUKAST NA 10 MG TABLET PO SCH (22:29)
[2018-01-14] MEDS: METHOCARBAMOL 500 MG TABLET PO SCH (22:41)
[2018-01-15] MEDS: FEBUXOSTAT 40 MG TAB PO SCH (09:01)
[2018-01-15] MEDS: POTASSIUM CHLORIDE TABS 20 MEQ TABLET.ER (FP) PO SCH (09:02)
[2018-01-15] MEDS: CLOPIDOGREL BISULFATE 75 MG TABLET (FP) PO SCH (09:02)
[2018-01-15] MEDS: METHOCARBAMOL 500 MG TABLET PO SCH ×2 (09:02→21:47)
[2018-01-15] MEDS: ENOXAPARIN NA (PORCINE) 40 MG/0.4 ML DISP.SYRIN SQ SCH (09:02)
[2018-01-15] MEDS: ASPIRIN 81 MG CHEWABLE TABLETS PO SCH (09:03)
[2018-01-15] MEDS: FUROSEMIDE 40 MG TABLET (FP) PO SCH (09:03)
[2018-01-15] MEDS: FERROUS SO4 325 MG TABLET (FP) PO SCH (09:03)
[2018-01-15] MEDS: oxyCODONE HCL 10 MG SUSTAINED ACTING TABLET PO SCH ×2 (09:03→21:47)
[2018-01-15] MEDS: VALSARTAN 160 MG TABLET (UD) PO SCH ×2 (09:03→21:47)
[2018-01-15] MEDS: GABAPENTIN 300 MG CAPSULE (FP) PO SCH ×4 (09:03→21:47)
--- NOTE | 2018-01-15 11:05 | EKG ---
Test Reason : Blood Pressure : / mmHG Vent. Rate : 082 BPM Atrial Rate : 082 BPM P-R Int : 236 ms QRS Dur : 104 ms QT Int : 408 ms P-R-T Axes : 049 -08 001 degrees QTc Int : 476 ms SINUS RHYTHM WITH SINUS ARRHYTHMIA WITH 1ST DEGREE A-V BLOCK OTHERWISE NORMAL ECG WHEN COMPARED WITH ECG OF 13-JAN-2018 21:50, SINUS RHYTHM HAS REPLACED ATRIAL FIBRILLATION Confirmed by STEPH TREJO, JESUS ([id number]) on 01/15/2018 11:05:06 AM Referred By: RAMIN HESTER DR Confirmed By:JESUS CHOI MD
[2018-01-15] MEDS: PANTOPRAZOLE 20 MG TABLET (FP) PO SCH (13:16)
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
--- NOTE | 2018-01-15 21:24 | CONSULT ---
Consult - text type - Consultation Consultation Note: NEUROLOGY CONSULATATION is greatly appreciated: This 72 yo RH man with h/o HTN, COPD and recent CHF s/p stents, is well- known to me with chronic Low back and leg pains after multiple LS surgeries. Recent worsening a pain and gait with acute LS disc herniation and cauda equinae syndrome improved with conservative Rx. On MTX for rheumatoid arthritis and uloric for gout. On gabapentin and methcarbomol for pain with is not nearly as good as cerebyx according to the patient. Recently started on furosamide, metoprolol, vasartan, clopidogrel for CHF and recent stents. Now admitted after syncope witnessed by his . Pt was sitting up at the side of his bed. Patient recalls lightheadedness and "just fell out." He recalls EMS saying his "blood pressure was low." MARY: No head trauma. No bruits. Cor reg. Well-healed LS scars. Charcot right Ankle. NEURO: MS/Speech: Normal CN II-XII: Normal Motor: Normal strength. Decreased KJ's, absent AJ's Coord: No FTN dystaxia Decreased vibration in feet. Gait: Flexed and antalgic. IMP: 1. LS poyradiculopathy c/w LS spinal stenosis. 2. Syncope probably due to Hypotension. R/o arhythmia. SUGGEST: Continue monitoring. Check orthostatic BP's Rheumatology consultation. PT for gait with walker Thank you very much, Andry Morton MD
[2018-01-15] MEDS: MONTELUKAST NA 10 MG TABLET PO SCH (21:47)
--- NOTE | 2018-01-15 23:09 | PN ---
Progress Note, Physician - Current Medication List Current Medications: Active Medications Aspirin (Asa -) 81 mg PO DAILY [facility] Last Admin: 01/15/18 09:03 Dose: 81 mg Clopidogrel Bisulfate (Plavix -) 75 mg PO DAILY [facility] Last Admin: 01/15/18 09:02 Dose: 75 mg Enoxaparin Sodium (Lovenox -) 40 mg SQ DAILY [facility] Last Admin: 01/15/18 09:02 Dose: 40 mg Febuxostat (Uloric -) 40 mg PO DAILY [facility] Last Admin: 01/15/18 09:01 Dose: 40 mg Ferrous Sulfate (Feosol -) 325 mg PO DAILY [facility] Last Admin: 01/15/18 09:03 Dose: 325 mg Furosemide (Lasix -) 40 mg PO DAILY [facility] Last Admin: 01/15/18 09:03 Dose: 40 mg Gabapentin (Neurontin -) 300 mg PO QID [facility] Last Admin: 01/15/18 21:47 Dose: 300 mg Methocarbamol (Robaxin -) 750 mg PO BID [facility] Last Admin: 01/15/18 21:47 Dose: 750 mg Metoprolol Succinate (Toprol Xl -) 50 mg PO DAILY [facility] Last Admin: 01/15/18 09:02 Dose: 50 mg Montelukast Sodium (Singulair -) 10 mg PO HS [facility] Last Admin: 01/15/18 21:47 Dose: 10 mg Oxycodone HCl (Oxycontin -) 10 mg PO BID [facility] Last Admin: 01/15/18 21:47 Dose: 10 mg Pantoprazole Sodium (Protonix -) 20 mg PO DAILY [facility] Last Admin: 01/15/18 13:16 Dose: 20 mg Potassium Chloride (K-Dur -) 20 meq PO DAILY [facility] Last Admin: 01/15/18 09:02 Dose: 20 meq Valsartan (Diovan -) 160 mg PO BID [facility] Last Admin: 01/15/18 21:47 Dose: 160 mg - Objective Vital Signs: Vital Signs Temperature 98.5 F 01/15/18 22:00 Pulse Rate 93 H 01/15/18 22:00 Respiratory Rate 18 01/15/18 22:00 Blood Pressure 111/63 01/15/18 22:00 O2 Sat by Pulse Oximetry (%) 98 01/15/18 20:49 Labs: CBC, BMP 01/14/18 07:04 01/14/18 07:04 INR, PTT INR 1.11 (0.82-1.09) 01/13/18 21:20
[2018-01-16] MEDS ORDERED: PT OWN MED DRAWER 7, Y5N ONE (09:53)
[2018-01-16] MEDS: FEBUXOSTAT 40 MG TAB PO SCH (09:55)
[2018-01-16] MEDS: METHOCARBAMOL 500 MG TABLET PO SCH (09:55)
[2018-01-16] MEDS: oxyCODONE HCL 10 MG SUSTAINED ACTING TABLET PO SCH (09:56)
[2018-01-16] MEDS: FUROSEMIDE 40 MG TABLET (FP) PO SCH (09:56)
[2018-01-16] MEDS: CLOPIDOGREL BISULFATE 75 MG TABLET (FP) PO SCH (09:56)
[2018-01-16] MEDS: GABAPENTIN 300 MG CAPSULE (FP) PO SCH ×2 (09:56→14:54)
[2018-01-16] MEDS: POTASSIUM CHLORIDE TABS 20 MEQ TABLET.ER (FP) PO SCH (09:56)
[2018-01-16] MEDS: VALSARTAN 160 MG TABLET (UD) PO SCH (09:56)
[2018-01-16] MEDS: FERROUS SO4 325 MG TABLET (FP) PO SCH (09:56)
[2018-01-16] MEDS: ASPIRIN 81 MG CHEWABLE TABLETS PO SCH (09:56)
[2018-01-16] MEDS: PANTOPRAZOLE 20 MG TABLET (FP) PO SCH (09:56)
[2018-01-16] MEDS: ENOXAPARIN NA (PORCINE) 40 MG/0.4 ML DISP.SYRIN SQ SCH (09:57)
[2018-01-16] MEDS ORDERED: POLYETHYLENE GLYCOL 3350 119 GM BTL PO SCH (10:00)
[2018-01-16] MEDS ORDERED: DOCUSATE SODIUM 100 MG CAPSULE (FP) PO SCH (10:00)
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
--- NOTE | 2018-01-16 13:37 | DS ---
Physical Examination Vital Signs: Vital Signs Temperature 98 F 01/16/18 10:00 Pulse Rate 64 01/16/18 12:16 Respiratory Rate 18 01/16/18 10:00 Blood Pressure 108/60 01/16/18 12:16 O2 Sat by Pulse Oximetry (%) 100 01/16/18 09:00 Cardiovascular: Yes: Regular Rate and Rhythm Respiratory: Yes: Regular, CTA Bilaterally Gastrointestinal: Yes: Normal Bowel Sounds, Soft Labs: CBC, BMP 01/14/18 07:04 01/14/18 07:04 Discharge Summary Reason For Visit: SYNCOPE Current Active Problems Syncope (Acute) Condition: Stable - Instructions Referrals: Leonard Lester MD [Primary Care Provider] - - Home Medications Comprehensive Discharge Medication List: Ambulatory Orders Aspirin [Rachelle Chewable Aspirin] 81 mg PO DAILY 04/03/17 Cyanocobalamin (Vitamin B-12) [B-12] 500 mcg PO DAILY 04/03/17 Febuxostat [Uloric -] 40 mg PO DAILY 04/03/17 Gabapentin 300 mg PO QID 04/03/17 Iron 28 mg PO DAILY 04/03/17 Methocarbamol 750 mg PO BID 04/03/17 Methotrexate Sodium [Methotrexate] 2.5 mg PO DAILY 04/03/17 Montelukast Na [Singulair -] 10 mg PO HS 04/03/17 Omeprazole Magnesium [Prilosec] 10 mg PO DAILY 04/03/17 Valsartan [Diovan] 160 mg PO BID 04/03/17 Zolpidem Tartrate [Ambien] 10 mg PO DAILY 04/03/17 Oxycodone HCl [Oxycodone HCl ER] 10 mg PO BID 10/28/17 Oxycodone HCl/Acetaminophen [Percocet 10-325 mg Tablet] 1 each PO TID PRN Clopidogrel Bisulfate [Plavix -] 75 mg PO DAILY #30 tablet 01/12/18 Ferrous Sulfate [Feosol] 325 mg PO DAILY ud 01/12/18 Furosemide [Lasix] 40 mg PO DAILY #30 tablet 01/12/18 Metoprolol Succinate [Toprol XL -] 50 mg PO DAILY #30 tab.sr.24h 01/12/18 Potassium Chloride 20 meq PO DAILY #30 tablet.er 01/12/18
[2018-01-16 15:14] VITALS: BP 130/65; PULSE 79; TEMP 98.5
== END 2018-01-16 16:24 | disposition home or self-care (01) | DRG 315 ==
LOC: JER 19:54 → JERBED 01-14 00:04 → J4W 01-14 02:58
PROVIDERS: ADMIT Internal Medicine; ATTEND Internal Medicine
DX: I95.9 Hypotension, unspecified (principal); I50.30 Unspecified diastolic (congestive) heart failure; I11.0 Hypertensive heart disease with heart failure; D50.9 Iron deficiency anemia, unspecified; I25.10 Atherosclerotic heart disease of native coronary artery without angina pectoris; I25.2 Old myocardial infarction; Z95.5 Presence of coronary angioplasty implant and graft; E78.5 Hyperlipidemia, unspecified; Z85.46 Personal history of malignant neoplasm of prostate; M10.9 Gout, unspecified; I34.0 Nonrheumatic mitral (valve) insufficiency; M48.061 Spinal stenosis, lumbar region without neurogenic claudication; Z77.090 Contact with and (suspected) exposure to asbestos; D89.89 Other specified disorders involving the immune mechanism, not elsewhere classified; I45.81 Long QT syndrome; M54.5 Low back pain; M06.9 Rheumatoid arthritis, unspecified; M19.042 Primary osteoarthritis, left hand; M19.041 Primary osteoarthritis, right hand
CPT/HCPCS: 36415; 70450-TC; 71045-TC-FY; 80053; 82550; 82553; 83880; 84484; 85025; 85027; 85610; 86850; 86900; 86901; 93005; 93010; 93880-TC; 99284-25

== ENCOUNTER 2018-02-13 13:31 | Observation (INO) | payer OTHER, BC ==
[2018-02-13] MEDS ORDERED: EPINEPHrine 1:1,000 0.3 MG/0.3 ML SYR IM ONE (13:54)
[2018-02-13] MEDS ORDERED: SODIUM CHLORIDE 1,000 ML IV STA ×2 (13:55)
[2018-02-13 13:59] VITALS: BMI 28.2
[2018-02-13] MEDS ORDERED: EPINEPHrine 1:1,000 - 30,000 MCG in DEXTROSE 5%-WATER - 220 ML IVPB SCH (14:00)
[2018-02-13] MEDS ORDERED: EPINEPHrine/PF 1 MG/1 ML (1:1,000) AMPULE ONE (14:00)
[2018-02-13] MEDS ORDERED: ALBUTEROL SO4 2.5/IPRATROPIUM 0.5 INH SOL 3 ML VIAL.NEB. NEB ONE ×2 (14:02→14:11)
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
[2018-02-13 14:21] LABS: BASO % 0.3 % (0-2.0); EOS % 1.3 % (0-4.5); HEMATOCRIT 36.8 % (35.4-49); HEMOGLOBIN 12.1 GM/dL (11.7-16.9); LYMPH % 38.8 % (8-40); MCH 32.9 pg (25.7-33.7); MCHC 32.9 g/dl (32.0-35.9); MEAN PLT VOLUME 6.9 fl (7.5-11.1); MONO % 9.8 % (3.8-10.2); NEUT % 49.8 % (42.8-82.8); RBC 3.68 M/mm3 (4.00-5.60); RDW 16.5 % (11.9-15.9); WHITE BLOOD COUNT 9.7 K/mm3 (4.0-10.0)
--- NOTE | 2018-02-13 14:40 | CONSULT ---
Consult - text type - Consultation Consultation Note: ENT Consult 73 yo man with acute onset of dyspnea after urologic procedure today. Associated hives and hypotension. Has improved on nebulizer, steroids, benadryl , but has hoarseness and feeling of throat constriction. P/WDWN BM laying comfortably on a stretcher No stridor OC/OP normal Nose normal FOL: left nasal cavity is normal, nasopharynx with mild posterior wall ecchymosis, hypopharynx normal except pooling of a small amount of cloudy mucus in the pyriform sinuses. Larynx is normal, vocal cords are symmetric and mobile. Imp: anaphylaxis, no current evidence of impending airway obstruction Recommend continuing medical management Would not intubate for now Reconsult if worsens
[2018-02-13 14:44] LABS: ALBUMIN 3.6 g/dl (3.4-5.0); ANION GAP 8 (8-16); BILIRUBIN,TOTAL 0.7 mg/dL (0.2-1.0); BLOOD UREA NITROGEN 24 mg/dL (7-18); CALCIUM 8.8 mg/dL (8.5-10.1); CHLORIDE 105 mmol/L (98-107); CO2 27 mmol/L (21-32); CREATININE 1.3 mg/dL (0.7-1.3); GLUCOSE,RANDOM 191 mg/dL (74-106); SGPT/ALT 18 U/L (12-78); SODIUM 140 mmol/L (136-145); TOT PROT 6.1 g/dl (6.4-8.2)
[2018-02-13 14:46] LABS: ALK PHOS 82 U/L (45-117)
--- NOTE | 2018-02-13 14:46 | PDOC ---
Attending Attestation - Resident Resident Name: Abigail Lieberman - ED Attending Attestation I have performed the following: I have examined & evaluated the patient, The case was reviewed & discussed with the resident, I agree w/resident's findings & plan, Exceptions are as noted - HPI HPI: 02/13/18 14:40 Mr Tirado is a 73 yo M who presents to the ER due to anaphylaxis Pt was at the office of Rhoda Lester He is s/p cystoscopy After the procedure, he was given Toradol and gentamycin Pt noted to have diffuse urticaria/erythema Pt reports throat tightness and hoarseness Pt denies nausea 02/13/18 17:36 02/13/18 17:37 - Physicial Exam PE: 02/13/18 14:45 On exam: RRR, no murmur CTA, no wheezing or rhonchi No abd tenderness Diffuse skin erythema Uvula is midline and non edematous Pt is very sleepy but does move all extremities on command He is arousable to voice - Medical Decision Making 02/13/18 14:46 Pt given subQ epinephrine 0.3 given multi system involvement and hypotension BP has improved after this Pt is more awake ? hypotension due to anaphylaxis and vasodilitation in addition to dehydration + benadryl This has improved with epinephrine and IV fluids Dr Carney happened to be in the ER I consulted him to see this patient He has performed a laryngoscopy and visualizes NO laryngeal edema, pt vocal cords moving appropriately Pt does not have an urgent anatomical need for intubation Pt states the tight feeling in his throat has improved, he still has a raspy voice Labs sent Will admit Attempting to contact Dr Lester's office to determine the cause of his reaction Clinical Impression: Anaphylaxis, initial presentation Discharge Disposition - Diagnosis Anaphylactic reaction - Discharge Dispostion Disposition: HOME Condition at time of disposition: Improved Last Admission D/C Date: 01/16/18 - Prescriptions - Referrals - Patient Instructions - Post Discharge Activity Critical Care Time/MDM Note Total Critical Care Time: 60 Critical Care Statement: The care of this patient involved high complexity decision making to prevent further life threatening deterioration of the patient 's condition and/or to evaluate & treat vital organ system(s) failure or risk of failure.
[2018-02-13 14:59] LABS: POTASSIUM 4.2 mmol/L (3.5-5.1); SGOT/AST 29 U/L (15-37)
[2018-02-13 15:44] LABS: PLATELET COUNT 474 K/MM3 (134-434)
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
[2018-02-13] MEDS ORDERED: ALBUTEROL SO4 2.5/IPRATROPIUM 0.5 INH SOL 3 ML VIAL.NEB. NEB PRN (23:17)
[2018-02-13] MEDS: methylPREDNISolone NA SUCC 40 MG/1 ML VIAL IVPUSH SCH (23:44)
[2018-02-14] MEDS ORDERED: ACETAMINOPHEN 325 MG TABLET (FP) PO PRN (00:05)
[2018-02-14] MEDS: oxyCODONE HCL 5 MG TABLET PO PRN ×2 (00:16→10:26)
[2018-02-14] MEDS: ACETAMINOPHEN 325 MG TABLET (FP) PO PRN ×2 (00:16→10:29)
[2018-02-14] MEDS: methylPREDNISolone NA SUCC 40 MG/1 ML VIAL IVPUSH SCH ×2 (02:14→10:11)
[2018-02-14 07:41] LABS: ALBUMIN 3.2 g/dl (3.4-5.0); ANION GAP 9 (8-16); BLOOD UREA NITROGEN 37 mg/dL (7-18); CALCIUM 8.6 mg/dL (8.5-10.1); CHLORIDE 107 mmol/L (98-107); CO2 27 mmol/L (21-32); GLUCOSE,RANDOM 143 mg/dL (74-106); SGOT/AST 18 U/L (15-37); SGPT/ALT 15 U/L (12-78); SODIUM 143 mmol/L (136-145)
[2018-02-14 07:43] LABS: ALK PHOS 63 U/L (45-117); BILIRUBIN,TOTAL 0.5 mg/dL (0.2-1.0); TOT PROT 5.4 g/dl (6.4-8.2)
[2018-02-14 08:10] LABS: BASO % 0.2 % (0-2.0); HEMATOCRIT 34.5 % (35.4-49); HEMOGLOBIN 11.8 GM/dL (11.7-16.9); LYMPH % 7.5 % (8-40); MCH 33.8 pg (25.7-33.7); MCHC 34.3 g/dl (32.0-35.9); MEAN CELL VOLUME 98.6 fl (80-96); MEAN PLT VOLUME 6.9 fl (7.5-11.1); MONO % 2.2 % (3.8-10.2); NEUT % 90.1 % (42.8-82.8); PLATELET COUNT 398 K/MM3 (134-434); RDW 16.4 % (11.9-15.9); WHITE BLOOD COUNT 9.4 K/mm3 (4.0-10.0)
[2018-02-14] MEDS ORDERED: VALSARTAN 160 MG TABLET (UD) PO SCH (10:00)
[2018-02-14] MEDS ORDERED: OMEPRAZOLE MAGNESIUM 10 MG PO SCH (10:00)
[2018-02-14] MEDS ORDERED: FERROUS SO4 325 MG TABLET (FP) PO SCH (10:00)
[2018-02-14] MEDS ORDERED: FUROSEMIDE 40 MG TABLET (FP) PO SCH (10:00)
[2018-02-14] MEDS ORDERED: PANTOPRAZOLE 40 MG TABLET (FP) PO SCH (10:00)
[2018-02-14] MEDS ORDERED: FEBUXOSTAT 40 MG TAB PO SCH (10:00)
[2018-02-14] MEDS ORDERED: ASPIRIN 81 MG CHEWABLE TABLETS PO SCH (10:00)
[2018-02-14] MEDS ORDERED: POTASSIUM CHLORIDE TABS 20 MEQ TABLET.ER (FP) PO SCH (10:00)
[2018-02-14] MEDS ORDERED: IRON 28 MG PO SCH (10:00)
[2018-02-14] MEDS ORDERED: CLOPIDOGREL BISULFATE 75 MG TABLET (FP) PO SCH (10:00)
[2018-02-14] MEDS: GABAPENTIN 300 MG CAPSULE (FP) PO SCH ×2 (10:11→14:38)
[2018-02-14 14:21] VITALS: BP 125/67; PULSE 81; TEMP 98.1
--- NOTE | 2018-02-14 16:45 | DS ---
Physical Exam: SUBJECTIVE: Patient seen and examined. Symptoms have resolved. No throat swelling, voice normal, feels well. present and agrees patient is at his baseline. OBJECTIVE: Vital Signs Period Temp Pulse Resp BP Sys/Dyson Pulse Ox Last 24 Hr 97.2 F-98.1 F 70-83 20-20 98-125/56-70 95-99 PHYSICAL EXAM GENERAL: The patient is awake, alert, and fully oriented, in no acute distress. HEAD: Normal with no signs of trauma. EYES: PERRL, extraocular movements intact, sclera anicteric, conjunctiva clear. ENT: Ears normal, nares patent, oropharynx clear without exudates, moist mucous membranes. NECK: Trachea midline, full range of motion, supple. LUNGS: Breath sounds equal, clear to auscultation bilaterally, no wheezes, no crackles, no accessory muscle use. HEART: Regular rate and rhythm, S1, S2 without murmur, rub or gallop. ABDOMEN: Soft, nontender, nondistended, normoactive bowel sounds, no guarding, no rebound, no hepatosplenomegaly, no masses. EXTREMITIES: 2+ pulses, warm, well-perfused, no edema. NEUROLOGICAL: Cranial nerves II through XII grossly intact. Normal speech, gait not observed. PSYCH: Normal mood, normal affect. SKIN: Warm, dry, normal turgor, no rashes or lesions noted. LABS Laboratory Results - last 24 hr 02/14/18 02/14/18 05:00 05:00 WBC 9.4 RBC 3.50 L Hgb 11.8 Hct 34.5 L MCV 98.6 H MCH 33.8 H MCHC 34.3 RDW 16.4 H Plt Count 398 MPV 6.9 L Neutrophils % 90.1 H D Lymphocytes % 7.5 L D Monocytes % 2.2 L Eosinophils % 0.0 D Basophils % 0.2 Sodium 143 Potassium 5.0 Chloride 107 Carbon Dioxide 27 Anion Gap 9 BUN 37 H D Creatinine 1.0 D Creat Clearance w eGFR > 60 Random Glucose 143 H D Calcium 8.6 Total Bilirubin 0.5 D AST 18 D ALT 15 Alkaline Phosphatase 63 D Total Protein 5.4 L Albumin 3.2 L HOSPITAL COURSE: Date of Admission:02/13/18 Date of Discharge: 02/14/18 Pre hospital course Patient is a 73 year old male with a PMH of HTN, CAD (s/p [place] w/stent x2), Prostate CA, chronic pain BIBEMS after an outpatient post-procedure allergic reaction. Patient had a cystoscopy earlier today and was in recovery when he was given IV gentamycin and Toradol when he started feeling lightheaded and experiencing throat swelling. Patient given Benadryl (50 mg) and Dexamethasone (8 mg) + 1 L IV NS. BP initially 60/40 improved to 100/60. At presentation to ED patient hypotensive (40-70/30-40), SpO2 80's on NRB, alert, responsive c/o throat closing and raspy voice. Problem List - Problems (1) Anaphylactic reaction Assessment/Plan: Unclear allergen, either gentamycin or toradol; patient was NOT GIVEN any procedural sedation Treated with IV solumedrol Given IV fluids, BP stable Code(s): T78.2XXA - ANAPHYLACTIC SHOCK, UNSPECIFIED, INITIAL ENCOUNTER (2) HTN (hypertension) Assessment/Plan: Antihypertensives held, restarted on discharge Code(s): I10 - ESSENTIAL (PRIMARY) HYPERTENSION (3) Prostate CA Assessment/Plan: F/U w/ uro as outpt Code(s): C61 - MALIGNANT NEOPLASM OF PROSTATE (4) Anemia Assessment/Plan: Cont feosol Code(s): D64.9 - ANEMIA, UNSPECIFIED (5) CAD (coronary artery disease) Code(s): I25.10 - ATHSCL HEART DISEASE OF [place] CORONARY ARTERY W/O ANG PCTRS (6) COPD (chronic obstructive pulmonary disease) Code(s): J44.9 - CHRONIC OBSTRUCTIVE PULMONARY DISEASE, UNSPECIFIED (7) GERD (gastroesophageal reflux disease) Code(s): K21.9 - GASTRO-ESOPHAGEAL REFLUX DISEASE WITHOUT ESOPHAGITIS (8) HLD (hyperlipidemia) Code(s): E78.5 - HYPERLIPIDEMIA, UNSPECIFIED Minutes to complete discharge: 35 Discharge Summary Reason For Visit: ANAPHYLAXIS Current Active Problems Anaphylactic reaction (Acute) Condition: Improved - Instructions Diet, Activity, Other Instructions: A prescription has been sent to your pharmacy for prednisone. Take this medication exactly as prescribed and make sure you take all the medication. It is important you follow up with Dr. Leonard Lester, your PCP, on Friday or Friday. Call his office for an appointment. Return to the emergency department for any new or worsening symptoms. Referrals: Leonard Lester MD [Primary Care Provider] - 02/17/18 10:00 am (Anaphylaxis) Disposition: HOME - Home Medications Comprehensive Discharge Medication List: Ambulatory Orders Aspirin [Rachelle Chewable Aspirin] 81 mg PO DAILY 04/03/17 Cyanocobalamin (Vitamin B-12) [B-12] 500 mcg PO DAILY 04/03/17 Febuxostat [Uloric -] 40 mg PO DAILY 04/03/17 Gabapentin 300 mg PO QID 04/03/17 Iron 28 mg PO DAILY 04/03/17 Methocarbamol 750 mg PO BID 04/03/17 Methotrexate Sodium [Methotrexate] 2.5 mg PO DAILY 04/03/17 Montelukast Na [Singulair -] 10 mg PO HS 04/03/17 Omeprazole Magnesium [Prilosec] 10 mg PO DAILY 04/03/17 Valsartan [Diovan] 160 mg PO BID 04/03/17 Zolpidem Tartrate [Ambien] 10 mg PO DAILY 04/03/17 Oxycodone HCl [Oxycodone HCl ER] 10 mg PO BID 10/28/17 Oxycodone HCl/Acetaminophen [Percocet 10-325 mg Tablet] 1 each PO TID PRN Clopidogrel Bisulfate [Plavix -] 75 mg PO DAILY #30 tablet 01/12/18 Ferrous Sulfate [Feosol] 325 mg PO DAILY ud 01/12/18 Furosemide [Lasix] 40 mg PO DAILY #30 tablet 01/12/18 Metoprolol Succinate [Toprol XL -] 50 mg PO DAILY #30 tab.sr.24h 01/12/18 Potassium Chloride 20 meq PO DAILY #30 tablet.er 01/12/18 predniSONE [Deltasone -] See Taper PO ASDIR #43 tab 02/14/18 This patient is new to me today: Yes Date on this admission: 02/23/18 Emergency Visit: Yes ED Registration Date: 02/13/18 Care time: The patient presented to the Emergency Department on the above date and was hospitalized for further evaluation of their emergent condition. Critical Care patient: No - Discharge Referral Referred to [facility] No
[2018-02-14] MEDS ORDERED: MONTELUKAST NA 10 MG TABLET PO SCH (22:00)
--- NOTE | 2018-02-17 10:11 | EKG ---
Test Reason : Blood Pressure : / mmHG Vent. Rate : 076 BPM Atrial Rate : 076 BPM P-R Int : 202 ms QRS Dur : 104 ms QT Int : 436 ms P-R-T Axes : 007 -10 -09 degrees QTc Int : 490 ms NORMAL SINUS RHYTHM INCOMPLETE RIGHT BUNDLE BRANCH BLOCK MINIMAL VOLTAGE CRITERIA FOR LVH, MAY BE NORMAL VARIANT Cannot assess inferior leads due to artifact Confirmed by MD Hadley, Merlin ([id number]) on 02/17/2018 10:11:30 AM Referred By: Confirmed By:Merlin Butcher MD
== END 2018-02-14 17:45 | disposition home or self-care (01) ==
LOC: JER 13:31 → JERBED 15:15 → J4W 18:09
PROVIDERS: ADMIT Internal Medicine; ATTEND Nurse Practitioner Acute Care
PROC: 3E0333Z Introduction of Anti-inflammatory into Peripheral Vein, Percutaneous Approach (ICD-10-PCS; principal; 2018-02-13)
PROC: 3E0337Z Introduction of Electrolytic and Water Balance Substance into Peripheral Vein, Percutaneous Approach (ICD-10-PCS; 2018-02-13)
PROC: 3E023GC Introduction of Other Therapeutic Substance into Muscle, Percutaneous Approach (ICD-10-PCS; 2018-02-13)
PROC: 3E0F7GC Introduction of Other Therapeutic Substance into Respiratory Tract, Via Natural or Artificial Opening (ICD-10-PCS; 2018-02-13)
DX: T78.2XXA Anaphylactic shock, unspecified, initial encounter (principal); T88.8XXA Other specified complications of surgical and medical care, not elsewhere classified, initial encounter; Y83.9 Surgical procedure, unspecified as the cause of abnormal reaction of the patient, or of later complication, without mention of misadventure at the time of the procedure; I10 Essential (primary) hypertension; C61 Malignant neoplasm of prostate; D64.9 Anemia, unspecified; I25.10 Atherosclerotic heart disease of native coronary artery without angina pectoris; J44.9 Chronic obstructive pulmonary disease, unspecified; K21.9 Gastro-esophageal reflux disease without esophagitis; E78.5 Hyperlipidemia, unspecified; I25.2 Old myocardial infarction; Z95.5 Presence of coronary angioplasty implant and graft; Z88.8 Allergy status to other drugs, medicaments and biological substances; Z79.82 Long term (current) use of aspirin
CPT/HCPCS: 36415; 71045-TC-FY; 80053; 82550; 83605; 83880; 84484; 85025; 93005; 93010; 94640; 96361; 96372; 96374; 99285-25; G0378; J7030; J7620

== ENCOUNTER 2018-03-11 18:43 | Emergency (ER) | payer OTHER, BC ==
[2018-03-11 18:51] VITALS: TEMP 98; BMI 26.6
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
[2018-03-11 20:24] LABS: BASO % 0.8 % (0-2.0); EOS % 2.4 % (0-4.5); HEMATOCRIT 33.2 % (35.4-49); HEMOGLOBIN 11.1 GM/dL (11.7-16.9); LYMPH % 19.2 % (8-40); MCH 33.4 pg (25.7-33.7); MCHC 33.3 g/dl (32.0-35.9); MEAN CELL VOLUME 100.3 fl (80-96); NEUT % 68.6 % (42.8-82.8); PLATELET COUNT 323 K/MM3 (134-434); RBC 3.31 M/mm3 (4.00-5.60); RDW 16.6 % (11.9-15.9); WHITE BLOOD COUNT 6.6 K/mm3 (4.0-10.0)
[2018-03-11 22:25] LABS: URINE APPEARANCE CLEAR; URINE BILIRUBIN NEGATIVE (<2.0 mg/dL); URINE BLOOD NEGATIVE (NEGATIVE); URINE COLOR YELLOW; URINE GLUCOSE (UA) NEGATIVE (NEGATIVE); URINE KETONE NEGATIVE (NEGATIVE); URINE NITRITE NEGATIVE (NEGATIVE); URINE PROTEIN NEGATIVE (NEGATIVE)
[2018-03-11 22:32] LABS: URINE LEUK ESTERASE 1+ (NEGATIVE)
[2018-03-11 22:38] LABS: EPI CELLS RARE /HPF (FEW); URINE HYALINE CAST 1 /lpf; URINE MUCUS RARE
[2018-03-11 23:12] LABS: N-TERMINAL BNP 1193.06 pg/ml (5-125)
--- NOTE | 2018-03-11 23:28 | PDOC ---
Attending Attestation - Resident Resident Name: EdgarBereketTyson - ED Attending Attestation I have performed the following: I have examined & evaluated the patient, The case was reviewed & discussed with the resident, I agree w/resident's findings & plan, Exceptions are as noted - HPI HPI: 03/11/18 23:23 The patient is a 73 year old male with history of hypertension, hyperlipidemia, COPD, CHF, CAD, MD s/p stent, who presents to the ED complaining of a transient episode of chest pain that began this afternoon. The patient describes his pain as pressure like chest pain with associated shortness of breath that lasted for approximately 4 minutes, now resolved. He states he has experienced similar symptoms in the past and relates it to his chronic neck pain. Pt states he has severe arthritis, and when his neck pain flares up, he gets pain in his chest as well. Pt denies nausea, vomiting, or diaphoresis. No palpitations or LOC. No fever or chills. No peripheral edema. - Physicial Exam PE: 03/11/18 23:28 "GENERAL: Awake, alert, and fully oriented, in no acute distress. HEAD: No signs of trauma EYES: PERRLA, EOMI, sclera anicteric, conjunctiva clear ENT: Auricles normal inspection, hearing grossly normal, nares patent, oropharynx clear without exudates. Moist mucosa NECK: Nontender, no stepoffs, Normal ROM, supple, no lymphadenopathy, JVD, or masses LUNGS: Breath sounds equal, clear to auscultation bilaterally. No wheezes, and no crackles HEART: Regular rate and rhythm, normal S1 and S2, no murmurs, rubs or gallops ABDOMEN: Soft, nontender, normoactive bowel sounds. No guarding, no rebound. No masses EXTREMITIES: Normal range of motion, no edema. No clubbing or cyanosis. No cords, erythema, or tenderness NEUROLOGICAL: Cranial nerves II through XII intact. 5/5 strength and sensation in all extremities, Normal speech, normal gait, normal cerebellar function SKIN: Warm, Dry, normal turgor, no rashes or lesions noted." - Medical Decision Making 03/11/18 23:28 73 M with transient episode of chest pain. Pain is very atypical in nature, but pt has significant cardiac history. Will r/o ACS with serial trops. Pt with no EKG changes. Pt with no clinical evidence of DVT, no PE risk factors and normal vitals. Will defer PE work up at this time. - Labs, tropx2 - CXR 03/12/18 02:33 Labs wnl Trop negative x 2 XR clear on my read. Pt is well appearing, with normal vitals. Clinically stable for DC at this time. I discussed the physical exam findings, ancillary test results and final diagnoses with the patient. I answered all of the patient's questions. The patient was satisfied with the care received and felt comfortable with the discharge plan and treatment plan. The patient agrees to follow up with the primary care physician within 24-72 hours.
[2018-03-12 02:27] LABS: ALBUMIN 3.6 g/dl (3.4-5.0); ANION GAP 8 (8-16); BILIRUBIN,TOTAL 0.7 mg/dL (0.2-1.0); BLOOD UREA NITROGEN 20 mg/dL (7-18); CALCIUM 8.7 mg/dL (8.5-10.1); CHLORIDE 108 mmol/L (98-107); CO2 26 mmol/L (21-32); CREATININE 0.8 mg/dL (0.7-1.3); GLUCOSE,RANDOM 85 mg/dL (74-106); POTASSIUM 4.1 mmol/L (3.5-5.1); SGOT/AST 24 U/L (15-37); SGPT/ALT 28 U/L (12-78); SODIUM 142 mmol/L (136-145)
[2018-03-12 02:28] LABS: ALK PHOS 85 U/L (45-117)
[2018-03-12 02:34] VITALS: BP 135/72; PULSE 76
--- NOTE | 2018-03-12 13:26 | EKG ---
Test Reason : Blood Pressure : / mmHG Vent. Rate : 079 BPM Atrial Rate : 079 BPM P-R Int : 214 ms QRS Dur : 106 ms QT Int : 390 ms P-R-T Axes : 043 -16 -10 degrees QTc Int : 447 ms SINUS RHYTHM WITH 1ST DEGREE A-V BLOCK INCOMPLETE RIGHT BUNDLE BRANCH BLOCK BORDERLINE ECG WHEN COMPARED WITH ECG OF 11-MAR-2018 18:52, INCOMPLETE RIGHT BUNDLE BRANCH BLOCK IS NOW PRESENT Confirmed by STEPH TREJO, JESUS ([id number]) on 03/12/2018 1:26:35 PM Referred By: Confirmed By:JESUS CHOI MD
--- NOTE | 2018-03-17 13:27 | EKG ---
Test Reason : Blood Pressure : / mmHG Vent. Rate : 081 BPM Atrial Rate : 081 BPM P-R Int : 208 ms QRS Dur : 096 ms QT Int : 374 ms P-R-T Axes : 037 -10 015 degrees QTc Int : 434 ms NORMAL SINUS RHYTHM NORMAL ECG WHEN COMPARED WITH ECG OF 13-FEB-2018 13:54, CRITERIA FOR INFERIOR INFARCT ARE NO LONGER PRESENT QT HAS SHORTENED Confirmed by MD BEN, ADELINA ([id number]) on 03/17/2018 1:26:49 PM Referred By: Confirmed By:ADELINA CONTRERAS MD
== END 2018-03-12 02:43 | disposition home or self-care (01) ==
LOC: JER 18:43 → JERBED 03-12 02:01 → UNDOADMOB 03-12 02:01 → JERBED 03-12 02:10 → JER 03-12 02:43
DX: R07.9 Chest pain, unspecified (principal); I10 Essential (primary) hypertension; E78.5 Hyperlipidemia, unspecified; I25.10 Atherosclerotic heart disease of native coronary artery without angina pectoris; I25.2 Old myocardial infarction; Z95.5 Presence of coronary angioplasty implant and graft; Z85.46 Personal history of malignant neoplasm of prostate; G89.29 Other chronic pain
CPT/HCPCS: 36415; 71046-TC-FY; 80053; 81003; 81015; 82550; 83880; 84484; 85025; 93005; 93010; 99284-25

== ENCOUNTER 2018-03-20 15:24 | Inpatient (IN) | payer OTHER, BC ==
--- NOTE | 2018-03-20 15:30 | PDOC ---
Rapid Medical Evaluation Time Seen by Provider: 03/20/18 15:25 Medical Evaluation: Allergies Allergy/AdvReac Type Severity Reaction Status Date / Time gentamicin Allergy Severe Difficulty Verified 03/11/18 18:46 Breathing ketorolac [From Toradol] Allergy Unknown Difficulty Verified 03/11/18 18:52 Breathing propofol Allergy Unknown Difficulty Verified 03/11/18 18:52 Breathing 03/20/18 15:26 I have performed a brief in-person evaluation of this patient. The patient presents with a chief complaint of: CP x 2 days. H/o CAD x 2 stents , chronic back and neck pain s/p surgery remotely. Also c/o worsening of his b/ l UE numbness, L>R and worsening of b/l LE pain. Of note cervical CT 10/30 w/ disc herniation to C6-7 w/ mild cervical indentation. MRI L/S 10/30 w/ L5-S1 disc bulge that reaches to level of L5 nerve root Pertinent physical exam findings: stable I have ordered the following:ekg/cxr/labs The patient will proceed to the ED for further evaluation. Discharge Disposition - Diagnosis Chest pain Qualifiers: Chest pain type: unspecified Qualified Code(s): R07.9 - Chest pain, unspecified - Referrals - Patient Instructions - Post Discharge Activity
[2018-03-20 15:35] VITALS: BMI 28.2
--- NOTE | 2018-03-20 16:33 | PDOC ---
Attending Attestation - Resident Resident Name: Sandy Crowley - ED Attending Attestation I have performed the following: I have examined & evaluated the patient, The case was reviewed & discussed with the resident, I agree w/resident's findings & plan, Exceptions are as noted - HPI HPI: 03/20/18 18:04 Patient is a 73 M, with PMHx of hypertension, hyperlipidemia, COPD, CHF (on lasix), CAD, [place] s/p stents (x2), chronic cervical and back pain on daily oxycontin and percocet 10-325, prostate cancer who presents to the ED with worsening b/l UE numbness for 2 weeks and intermittent CP. Pt states that his b/ l UE numbness has progressed to the point that he is dropping things. He reports significant back pain that keeps him up at night and does not improve with oxycontin and percocet. Pt is followed by pain management. He also reports intermittent sternal CP that occurs 1-2 times per day, usually while at rest and lasts for 5 minutes at a time before resolving. Pt was recently seen in the ED for similar CP but states now it occurs more frequently. Denies associated SOB, fevers, chills, abd pain. Denies urine/stool incontinence or retention. Denies LE weakness, but does endorse LE numbness also progressive for 2-3 weeks. Surgical Hx: Cardiac stent placement (x2) SHx: Occasional alcohol use. Denies tobacco use. Denies recent traveling, surgery, or trauma. Allergies: NKDA PCP: Dr. Leonard Lester Cardiology: Yanelis - Physicial Exam PE: 03/20/18 18:04 agree with resident exam - Medical Decision Making 03/20/18 18:05 73yo M with MMP including multiple c-spine surgeries presents to the ED with progressive numbness in UE and LE over the last 2 weeks. Pt also reports back pain that is poorly controlled with home doses of narcotics. Vitals unremarkable. Exam with C6-C7 and T2 midline spinal ttp and 4/5 strength in UE b /l. Concern for possible cervical/thoracic cord compression causing progressive neuro sxs. Will discuss MRI imaging with his NSG Dr. Mendoza. With regards to CP, pt also has hx CAD and is having increasing episodes of CP. Labs with mild trop leak 0.07, EKG unchanged. Unclear cause of trop leak, but pt is high risk for ACS and thus will need cardiac work up and monitoring as well. Heart Score/ECG Review #1 03/20/18 16:32 Twelve-lead EKG was performed and reviewed by me. Normal sinus rhythm, rate 85. Normal axis and intervals. No ST elevations or T-wave inversions.
[2018-03-20 16:44] LABS: BASO % 0.7 % (0-2.0); EOS % 2.6 % (0-4.5); HEMATOCRIT 33.7 % (35.4-49); HEMOGLOBIN 11.2 GM/dL (11.7-16.9); LYMPH % 23.5 % (8-40); MCH 33.3 pg (25.7-33.7); MCHC 33.2 g/dl (32.0-35.9); MEAN CELL VOLUME 100.2 fl (80-96); MEAN PLT VOLUME 6.7 fl (7.5-11.1); MONO % 9.8 % (3.8-10.2); NEUT % 63.4 % (42.8-82.8); PLATELET COUNT 416 K/MM3 (134-434); RBC 3.36 M/mm3 (4.00-5.60); RDW 16.5 % (11.9-15.9); WHITE BLOOD COUNT 6.7 K/mm3 (4.0-10.0)
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
[2018-03-20] MEDS ORDERED: FAMOTIDINE 20 MG/50 ML IVPB 20 MG/50 ML MG IVPB ONE ×2 (17:07→17:31)
[2018-03-20 17:20] LABS: ALBUMIN 3.4 g/dl (3.4-5.0); ANION GAP 6 (8-16); BLOOD UREA NITROGEN 24 mg/dL (7-18); CALCIUM 8.6 mg/dL (8.5-10.1); CHLORIDE 107 mmol/L (98-107); CO2 25 mmol/L (21-32); CREATININE 0.9 mg/dL (0.7-1.3); GLUCOSE,RANDOM 90 mg/dL (74-106); SGOT/AST 25 U/L (15-37); SGPT/ALT 34 U/L (12-78); SODIUM 138 mmol/L (136-145)
[2018-03-20 17:26] LABS: ALK PHOS 84 U/L (45-117); BILIRUBIN,TOTAL 0.3 mg/dL (0.2-1.0); TOT PROT 5.9 g/dl (6.4-8.2)
[2018-03-20] MEDS ORDERED: ASPIRIN 81 MG CHEWABLE TABLETS PO ONE (18:09)
[2018-03-20] MEDS ORDERED: GABAPENTIN 400 MG CAPSULE (FP) PO ONE (18:40)
[2018-03-20] MEDS ORDERED: ASPIRIN 81 MG CHEWABLE TABLETS ONE (20:45)
[2018-03-21] MEDS: morphine SULFATE 4 MG/ML VIAL IVPUSH PRN ×3 (02:02→17:15)
[2018-03-21 07:26] LABS: BASO % 0.5 % (0-2.0); EOS % 3.6 % (0-4.5); HEMATOCRIT 32.5 % (35.4-49); HEMOGLOBIN 11.1 GM/dL (11.7-16.9); LYMPH % 27.8 % (8-40); MCH 34.2 pg (25.7-33.7); MCHC 34.1 g/dl (32.0-35.9); MEAN CELL VOLUME 100.2 fl (80-96); MEAN PLT VOLUME 6.8 fl (7.5-11.1); NEUT % 59.1 % (42.8-82.8); PLATELET COUNT 367 K/MM3 (134-434); RBC 3.24 M/mm3 (4.00-5.60); RDW 16.2 % (11.9-15.9)
[2018-03-21 08:04] LABS: BLOOD UREA NITROGEN 17 mg/dL (7-18); CREATININE 0.7 mg/dL (0.7-1.3); GLUCOSE,RANDOM 77 mg/dL (74-106)
[2018-03-21 08:05] LABS: ANION GAP 5 (8-16); CALCIUM 8.5 mg/dL (8.5-10.1); CHLORIDE 109 mmol/L (98-107); CO2 27 mmol/L (21-32); POTASSIUM 4.1 mmol/L (3.5-5.1); SGOT/AST 19 U/L (15-37); SODIUM 141 mmol/L (136-145)
[2018-03-21 08:07] LABS: ALK PHOS 78 U/L (45-117); BILIRUBIN,TOTAL 0.7 mg/dL (0.2-1.0); SGPT/ALT 24 U/L (12-78); TOT PROT 4.9 g/dl (6.4-8.2)
[2018-03-21 09:37] LABS: N-TERMINAL BNP 1359.92 pg/ml (5-125)
--- NOTE | 2018-03-21 09:39 | CON.CARD ---
Cardiology Consult (text) - Consultation Consultation Note: Cardiology Consult Dictated IMP: CAD s/p PCI LAD 11/[address] [facility] Chronic diastolic CHF Chronic PHTN PSVT HTN Hyperlipidemia Non-obstructive carotid atheromatous dz RA Prior C-spine surgeries, chronic neck pain Now presents with several days CRABTREE, central substernal chest pressure episode to left arm--> resolved. Chronic neck and arm pain. ECG without acute ST changes; normal O2 saturation on room air; slightly elevated/borderline elevated TnI w/ normal CK and CXR showing mildly increased PVC. Symptoms are likely due to mild acute on chronic exacerbation of diastolic CHF and chronic PHTN, doubt ACS. Low clinical suspicion PE. He also has chronic neck and arm pain due to cervical disc disease. REC: 1. Telemetry 2. Cont ASA and Plavix 3. IV Lasix 4. LE venous duplex 5. Appreciate Neuro eval 6. Discussed with patient and : he would benefit from [facility] tertiary care center for further evaluation and Rx PHTN and repeat ischemic evaluation. Neuro evaluation can also be obtained there for any further work up. They have agreed to transfer to [facility], which will be arranged.
[2018-03-21] MEDS ORDERED: FUROSEMIDE 40 MG TABLET (FP) PO SCH (10:00)
[2018-03-21] MEDS: POTASSIUM CHLORIDE TABS 20 MEQ TABLET.ER (FP) PO SCH (10:00)
[2018-03-21] MEDS: FUROSEMIDE 40 MG/4 ML INJECTABLE VIAL IVPUSH SCH (10:00)
[2018-03-21] MEDS: FERROUS SO4 325 MG TABLET (FP) PO SCH (10:00)
[2018-03-21] MEDS ORDERED: IRON 28 MG PO SCH (10:00)
[2018-03-21] MEDS: METHOTREXATE 2.5 MG TABLET PO SCH (10:01)
[2018-03-21] MEDS: CLOPIDOGREL BISULFATE 75 MG TABLET (FP) PO SCH (10:01)
[2018-03-21] MEDS: VALSARTAN 160 MG TABLET (UD) PO SCH ×2 (10:02→22:20)
[2018-03-21] MEDS: GABAPENTIN 300 MG CAPSULE (FP) PO SCH ×4 (10:02→22:20)
[2018-03-21] MEDS: HEPARIN NA (PORCINE) 5,000 UNITS/ML 1ML VIAL SQ SCH ×2 (10:02→22:20)
[2018-03-21] MEDS: CYANOCOBALAMIN 1,000 MCG TABLET (FP) PO SCH (10:02)
[2018-03-21] MEDS: FEBUXOSTAT 40 MG TAB PO SCH (10:02)
[2018-03-21] MEDS ORDERED: FUROSEMIDE 40 MG/4 ML INJECTABLE VIAL ONE (10:09)
--- NOTE | 2018-03-21 10:09 | CON.NEURO ---
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 Cardio/Vascular: Yes: CAD, HTN, Hyperlipdemia Gastrointestinal: Yes: GERD Musculoskeletal: Yes: Other (Chronic rt ankle pain) Rheumatology: Yes: Gout - Alcohol/Substance Use Hx Alcohol Use: Yes (X 3 WEEK) History of Substance Use: reports: None - Smoking History Smoking history: Former smoker Have you smoked in the past 12 months: No - Social History ADL: Independent History of Recent Travel: No Home Medications - Allergies Allergies/Adverse Reactions: Allergies Allergy/AdvReac Type Severity Reaction Status Date / Time gentamicin Allergy Severe Difficulty Verified 03/20/18 15:26 Breathing ketorolac [From Toradol] Allergy Unknown Difficulty Verified 03/20/18 15:26 Breathing propofol Allergy Unknown Difficulty Verified 03/20/18 15:26 Breathing - Home Medications Home Medications: Ambulatory Orders Aspirin [Rachelle Chewable Aspirin] 81 mg PO DAILY 04/03/17 Cyanocobalamin (Vitamin B-12) [B-12] 500 mcg PO DAILY 04/03/17 Febuxostat [Uloric -] 40 mg PO DAILY 04/03/17 Gabapentin 300 mg PO QID 04/03/17 Iron 28 mg PO DAILY 04/03/17 Methocarbamol 750 mg PO BID 04/03/17 Methotrexate Sodium [Methotrexate] 2.5 mg PO DAILY 04/03/17 Montelukast Na [Singulair -] 10 mg PO HS 04/03/17 Omeprazole Magnesium [Prilosec] 10 mg PO DAILY 04/03/17 Valsartan [Diovan] 160 mg PO BID 04/03/17 Zolpidem Tartrate [Ambien] 10 mg PO DAILY 04/03/17 Oxycodone HCl [Oxycodone HCl ER] 10 mg PO BID 10/28/17 Oxycodone HCl/Acetaminophen [Percocet 10-325 mg Tablet] 1 each PO TID PRN Clopidogrel Bisulfate [Plavix -] 75 mg PO DAILY #30 tablet 01/12/18 Ferrous Sulfate [Feosol] 325 mg PO DAILY ud 01/12/18 Furosemide [Lasix] 40 mg PO DAILY #30 tablet 01/12/18 Metoprolol Succinate [Toprol XL -] 50 mg PO DAILY #30 tab.sr.24h 01/12/18 Potassium Chloride 20 meq PO DAILY #30 tablet.er 01/12/18 predniSONE [Deltasone -] See Taper PO ASDIR #43 tab 02/14/18 Physical Exam-Neuro Vital Signs: Vital Signs Temperature 98 F 03/21/18 08:38 Pulse Rate 81 03/21/18 08:38 Respiratory Rate 16 03/21/18 08:38 Blood Pressure 123/69 03/21/18 08:38 O2 Sat by Pulse Oximetry (%) 99 03/20/18 23:04 Labs: CBC, BMP 03/21/18 06:30 03/21/18 06:30 Assessment/Plan CC Worsening of Chronic Neck and Back pain. HPI 73 Year old male history of HTN,HLD,COPD,CHF,CAD, recently had stent placement . Patient is being managed on Oxycontin and OxyIR as outpatient. Patient came to ED for worsenign of neck and low back pain. He history of Prostate cancer s/p surgery in 2004 and in remission. Patient says his hand and leg were tingling. He has cervical surgery in past and had mri of C/L spine done in Oct 2017 and was seen by Dr Pereira and there was no surgery planned . He did tried PT, GREGORIO and it did not helped. 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 His oxycontin was reduced and he has been in severe back pain. PMH as above PSH,ROS,SH reviewed in chart Allergies/Adverse Reactions: Allergies Allergy/AdvReac Type Severity Reaction Status Date / Time gentamicin Allergy Severe Difficulty Verified 03/20/18 15:26 Breathing ketorolac [From Toradol] Allergy Unknown Difficulty Verified 03/20/18 15:26 Breathing propofol Allergy Unknown Difficulty Verified 03/20/18 15:26 Breathing Home Medications: Ambulatory Orders Aspirin [Rachelle Chewable Aspirin] 81 mg PO DAILY 04/03/17 Cyanocobalamin (Vitamin B-12) [B-12] 500 mcg PO DAILY 04/03/17 Febuxostat [Uloric -] 40 mg PO DAILY 04/03/17 Gabapentin 300 mg PO QID 04/03/17 Iron 28 mg PO DAILY 04/03/17 Methocarbamol 750 mg PO BID 04/03/17 Methotrexate Sodium [Methotrexate] 2.5 mg PO DAILY 04/03/17 Montelukast Na [Singulair -] 10 mg PO HS 04/03/17 Omeprazole Magnesium [Prilosec] 10 mg PO DAILY 04/03/17 Valsartan [Diovan] 160 mg PO BID 04/03/17 Zolpidem Tartrate [Ambien] 10 mg PO DAILY 04/03/17 Oxycodone HCl [Oxycodone HCl ER] 10 mg PO BID 10/28/17 Oxycodone HCl/Acetaminophen [Percocet 10-325 mg Tablet] 1 each PO TID PRN Clopidogrel Bisulfate [Plavix -] 75 mg PO DAILY #30 tablet 01/12/18 Ferrous Sulfate [Feosol] 325 mg PO DAILY ud 01/12/18 Furosemide [Lasix] 40 mg PO DAILY #30 tablet 01/12/18 Metoprolol Succinate [Toprol XL -] 50 mg PO DAILY #30 tab.sr.24h 01/12/18 Potassium Chloride 20 meq PO DAILY #30 tablet.er 01/12/18 predniSONE [Deltasone -] See Taper PO ASDIR #43 tab 02/14/18 Neurological Examination Alert oriented x 3, follow command EOMI, pupils reactive , no face asymmetry There is mild left tricep weakness , and right shoulder difficult to abduct for him due to shoulder pain, otherwise upper extremity is normal strength There is diffuse reduced sensation upto mid forearm in both hand He has difficuse diminished sensation upto ankle in both feet there is no motor weakness identified reflex are generalized diminished MRI OF C spine and L spien is pending Assessment . 1 Chronic low back and cervical pain, Patient has history of chronic pain and since medication reduced one month ago his pain has been worsened. Patient compalin of new radicular pain in upper and lower extremity , which seems to be Radiculoapthy Vs Peripheral Neuropathy. 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 Spoke to Patient he wishe to repeat mri of c and L spine to be hold for now , till cardiac issue are resolved, Agree with Patient - In the mean time, continue opioids prn Thanking you so much Servando Tracey MD
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
--- NOTE | 2018-03-21 12:04 | HP ---
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 Cardiovascular: Yes: CAD, HTN, Hyperlipdemia Gastrointestinal: Yes: GERD Heme/Onc: Yes: Anemia, Other (Prostate cancer) Musculoskeletal: Yes: Other (Chronic rt ankle pain) Rheumatology: Yes: Gout - Smoking History Smoking history: Former smoker Have you smoked in the past 12 months: No - Alcohol/Substance Use Hx Alcohol Use: Yes (X 3 WEEK) History of Substance Use: reports: None - Social History ADL: Independent History of Recent Travel: No Home Medications - Allergies Allergies/Adverse Reactions: Allergies Allergy/AdvReac Type Severity Reaction Status Date / Time gentamicin Allergy Severe Difficulty Verified 03/20/18 15:26 Breathing ketorolac [From Toradol] Allergy Unknown Difficulty Verified 03/20/18 15:26 Breathing propofol Allergy Unknown Difficulty Verified 03/20/18 15:26 Breathing - Home Medications Home Medications: Ambulatory Orders Aspirin [Rachelle Chewable Aspirin] 81 mg PO DAILY 04/03/17 Cyanocobalamin (Vitamin B-12) [B-12] 500 mcg PO DAILY 04/03/17 Febuxostat [Uloric -] 40 mg PO DAILY 04/03/17 Gabapentin 300 mg PO QID 04/03/17 Iron 28 mg PO DAILY 04/03/17 Methocarbamol 750 mg PO BID 04/03/17 Methotrexate Sodium [Methotrexate] 2.5 mg PO DAILY 04/03/17 Montelukast Na [Singulair -] 10 mg PO HS 04/03/17 Omeprazole Magnesium [Prilosec] 10 mg PO DAILY 04/03/17 Valsartan [Diovan] 160 mg PO BID 04/03/17 Zolpidem Tartrate [Ambien] 10 mg PO DAILY 04/03/17 Oxycodone HCl [Oxycodone HCl ER] 10 mg PO BID 10/28/17 Oxycodone HCl/Acetaminophen [Percocet 10-325 mg Tablet] 1 each PO TID PRN Clopidogrel Bisulfate [Plavix -] 75 mg PO DAILY #30 tablet 01/12/18 Ferrous Sulfate [Feosol] 325 mg PO DAILY ud 01/12/18 Furosemide [Lasix] 40 mg PO DAILY #30 tablet 01/12/18 Metoprolol Succinate [Toprol XL -] 50 mg PO DAILY #30 tab.sr.24h 01/12/18 Potassium Chloride 20 meq PO DAILY #30 tablet.er 01/12/18 predniSONE [Deltasone -] See Taper PO ASDIR #43 tab 02/14/18 Physical Examination Vital Signs: Vital Signs Temperature 98 F 03/21/18 08:38 Pulse Rate 81 03/21/18 08:38 Respiratory Rate 16 03/21/18 08:38 Blood Pressure 123/69 03/21/18 08:38 O2 Sat by Pulse Oximetry (%) 98 03/21/18 08:00 Labs: CBC, BMP 03/21/18 06:30 03/21/18 06:30
--- NOTE | 2018-03-21 14:38 | EKG ---
Test Reason : Blood Pressure : / mmHG Vent. Rate : 085 BPM Atrial Rate : 085 BPM P-R Int : 206 ms QRS Dur : 100 ms QT Int : 372 ms P-R-T Axes : 039 -20 031 degrees QTc Int : 442 ms NORMAL SINUS RHYTHM NORMAL ECG WHEN COMPARED WITH ECG OF 11-MAR-2018 20:45, INCOMPLETE RIGHT BUNDLE BRANCH BLOCK IS NO LONGER PRESENT NONSPECIFIC T WAVE ABNORMALITY HAS REPLACED INVERTED T WAVES IN INFERIOR LEADS Confirmed by MD Pancho, Bryce ([id number]) on 03/21/2018 2:38:27 PM Referred By: Confirmed By:Bryce Deleon MD
[2018-03-21] MEDS ORDERED: MONTELUKAST NA 10 MG TABLET PO SCH (22:00)
[2018-03-22] MEDS: morphine SULFATE 4 MG/ML VIAL IVPUSH PRN ×2 (00:54→09:30)
[2018-03-22] MEDS ORDERED: diphenhydrAMINE HCL 25 MG CAPSULE (FP) PO ONE (02:30)
--- NOTE | 2018-03-22 09:22 | PN ---
Progress Note, Physician Chief Complaint: no new complaints History of Present Illness: TELE: NSR, Sinus tach - Current Medication List Current Medications: Active Medications Clopidogrel Bisulfate (Plavix -) 75 mg PO DAILY [facility] Last Admin: 03/21/18 10:01 Dose: 75 mg Cyanocobalamin (Vitamin B12 -) 500 mcg PO DAILY [facility] Last Admin: 03/21/18 10:02 Dose: 500 mcg Febuxostat (Uloric -) 40 mg PO DAILY [facility] Last Admin: 03/21/18 10:02 Dose: 40 mg Ferrous Sulfate (Feosol -) 325 mg PO DAILY [facility] Last Admin: 03/21/18 10:00 Dose: 325 mg Furosemide (Lasix Injection -) 40 mg IVPUSH DAILY [facility] Last Admin: 03/21/18 10:00 Dose: 40 mg Gabapentin (Neurontin -) 300 mg PO QID [facility] Last Admin: 03/21/18 22:20 Dose: 300 mg Heparin Sodium (Porcine) (Heparin -) 5,000 unit SQ BID [facility] Last Admin: 03/21/18 22:20 Dose: 5,000 unit Methotrexate (Mexate -) 2.5 mg PO DAILY [facility] Last Admin: 03/21/18 10:01 Dose: 2.5 mg Metoprolol Succinate (Toprol Xl -) 50 mg PO DAILY [facility] Last Admin: 03/21/18 10:02 Dose: 50 mg Montelukast Sodium (Singulair -) 10 mg PO [facility] Last Admin: 03/21/18 22:20 Dose: 10 mg Morphine Sulfate (Morphine Sulfate) 4 mg IVPUSH Q6H PRN PRN Reason: PAIN LEVEL 6-10 Last Admin: 03/22/18 00:54 Dose: 4 mg Potassium Chloride (K-Dur -) 20 meq PO DAILY [facility] Last Admin: 03/21/18 10:00 Dose: 20 meq Valsartan (Diovan -) 160 mg PO BID [facility] Last Admin: 03/21/18 22:20 Dose: 160 mg - Objective Vital Signs: Vital Signs Temperature 98.1 F 03/22/18 06:00 Pulse Rate 78 03/22/18 06:00 Respiratory Rate 20 03/22/18 06:00 Blood Pressure 151/82 03/22/18 06:00 O2 Sat by Pulse Oximetry (%) 100 03/21/18 21:00 Constitutional: Yes: Calm Cardiovascular: Yes: Regular Rate and Rhythm Respiratory: Yes: CTA Bilaterally Gastrointestinal: Yes: Soft Edema: No Neurological: Yes: Alert, Oriented ...Motor Strength: WNL Labs: CBC, BMP 03/21/18 06:30 03/21/18 06:30 Laboratory Tests 03/21/18 03/22/18 06:30 07:00 Troponin I 0.02 D B-Natriuretic Peptide 1359.92 H - ....Imaging Ultrasound: Image Reviewed (no DVT) EKG: Image Reviewed Assessment/Plan IMP: CAD s/p PCI LAD 11/2017 at [facility] Chronic diastolic CHF Chronic PHTN PSVT HTN Hyperlipidemia Non-obstructive carotid atheromatous dz RA Prior C-spine surgeries, chronic neck pain Now presents with several days CRABTREE, central substernal chest pressure episode to left arm--> resolved. Chronic neck and arm pain. ECG without acute ST changes; normal O2 saturation on room air; slightly elevated/borderline elevated TnI w/ normal CK and CXR showing mildly increased PVC. Symptoms are likely due to mild acute on chronic exacerbation of diastolic CHF and chronic PHTN, doubt ACS. Low clinical suspicion PE. He also has chronic neck and arm pain due to cervical disc disease. REC: 1. Telemetry 2. Cont ASA and Plavix 3. IV Lasix 4. LE venous duplex negative 5. Appreciate Neuro eval 6. Discussed with patient and : he would benefit from al tertiary care center for further evaluation and Rx PHTN and repeat ischemic evaluation. Neuro evaluation can also be obtained there for any further work up. They have agreed to transfer to [facility], which will be arranged, planned for today
[2018-03-22 09:28] VITALS: BP 108/60; PULSE 82; TEMP 98.2
[2018-03-22] MEDS ORDERED: PT OWN MED DRAWER 7, Y5N ONE (09:38)
--- NOTE | 2018-03-22 09:38 | PN ---
Progress Note (short form) - Note Progress Note: NEUROSURGERY Pt known to me last seen in October here with lumbar fusion L3-4 [place] at [facility]. Also had anterior cervical fusion at [facility]. Worsening neck pain and numbness to arms/hands and LBP and B sciatica to lateral-posterior thigh,calf, foot. + LE numbness, tingling and weakness (chronic but worsening) Diarrhea but no incontinence. Had been under the care of Dr Pereira for pain management. PMH: HTN, Chol, COPD, Gout and prostatic Ca; L4-S1 lumbar fusion L4-5 followed by L3-4; ACDF and posterior laminectomies/fusion Meds: Singulair, omeprazole, valsartan , toprol, gabapentin, methotrexate . NKDA SoHx: non-smoker, non-drinker ROS- weight stable ; negative for fever/chill and other new symptoms from constitutional/pulm/GI//endocrine/neurological/psych problems except for the above PE: AF, VSS HEENT- NC/AT; Neck- supple, incision C/D/I; Cor- RR; Lungs- CTA; Abd: benign, + BS; Ext- R ankle swelling (prior surgery); no other sign of DVT CN- intact; Motor- 4+-5 B except R DF/PF 4- ankle limited and R triceps and L DF /PF 4+; Sensation- decreased B feet > hand vibration; DTR- hyporeflexic WBC 8, Cr 0.7 LE doppler negative for DVT; R knee Diggs's cyst LS spine MRI ()- Prior L3-4-5-S1 fusion; central and L L2-3 central/ paracentral disc herniation with downwardly migrating disc fragment to entire length of L3 body with central thecal sac impingement; Prior R L1-2 HNP significantly smaller with only small disc protrusion this time; postlaminectomy changes L3-4-5; slightly worse L1-2 and L2-3 DDD with endplate sclerosis and mild disc edema C spine MRI (): posterior lamiectomies C3-6 and C3-7 fusion; anterior fusion; C6-7 HNP with stenosis L1-2 and L2-3 DDD with acute central L L2-3 HNP with thecal sac impingement; chronic cervical radiculopathy Cervical HNP C6-7 with stenosis and B radiculopathy, r/o worsening F/u with pain management DVT prophylaxis Cardiac eval given potential ischemic disease per cardiology MRI ordered per neurology As pt's last couple operations were performed by surgeon elsewhere, it would be more appropriate for him to be taken care of by his operating surgeon
[2018-03-22] MEDS: GABAPENTIN 300 MG CAPSULE (FP) PO SCH (09:41)
[2018-03-22] MEDS: CYANOCOBALAMIN 1,000 MCG TABLET (FP) PO SCH (09:41)
[2018-03-22] MEDS: FERROUS SO4 325 MG TABLET (FP) PO SCH (09:41)
[2018-03-22] MEDS: CLOPIDOGREL BISULFATE 75 MG TABLET (FP) PO SCH (09:42)
[2018-03-22] MEDS: VALSARTAN 160 MG TABLET (UD) PO SCH (09:42)
[2018-03-22] MEDS: HEPARIN NA (PORCINE) 5,000 UNITS/ML 1ML VIAL SQ SCH (09:42)
[2018-03-22] MEDS: METHOTREXATE 2.5 MG TABLET PO SCH (09:42)
[2018-03-22] MEDS: FEBUXOSTAT 40 MG TAB PO SCH (09:42)
[2018-03-22] MEDS: POTASSIUM CHLORIDE TABS 20 MEQ TABLET.ER (FP) PO SCH (09:42)
[2018-03-22] MEDS: FUROSEMIDE 40 MG/4 ML INJECTABLE VIAL IVPUSH SCH (09:42)
[2018-03-22] MEDS ORDERED: ASPIRIN 81 MG CHEWABLE TABLETS PO SCH (10:00)
--- NOTE | 2018-03-22 15:58 | DS ---
Physical Examination Vital Signs: Vital Signs Temperature 98.2 F 03/22/18 09:00 Pulse Rate 82 03/22/18 09:00 Respiratory Rate 18 03/22/18 09:00 Blood Pressure 108/60 03/22/18 09:00 O2 Sat by Pulse Oximetry (%) 98 03/22/18 09:00 Labs: CBC, BMP 03/21/18 06:30 03/21/18 06:30 Discharge Summary Reason For Visit: NUMBNESS; TINGLING OF SKIN; CHEST PAIN Condition: Guarded - Instructions Referrals: Leonard Lester MD [Primary Care Provider] - Disposition: TRANSFER ACUTE CARE/OTHER HOSP - Home Medications Comprehensive Discharge Medication List: Ambulatory Orders Aspirin [Rachelle Chewable Aspirin] 81 mg PO DAILY 04/03/17 Cyanocobalamin (Vitamin B-12) [B-12] 500 mcg PO DAILY 04/03/17 Febuxostat [Uloric -] 40 mg PO DAILY 04/03/17 Gabapentin 300 mg PO QID 04/03/17 Iron 28 mg PO DAILY 04/03/17 Methocarbamol 750 mg PO BID 04/03/17 Methotrexate Sodium [Methotrexate] 2.5 mg PO DAILY 04/03/17 Montelukast Na [Singulair -] 10 mg PO HS 04/03/17 Omeprazole Magnesium [Prilosec] 10 mg PO DAILY 04/03/17 Valsartan [Diovan] 160 mg PO BID 04/03/17 Zolpidem Tartrate [Ambien] 10 mg PO DAILY 04/03/17 Oxycodone HCl [Oxycodone HCl ER] 10 mg PO BID 10/28/17 Oxycodone HCl/Acetaminophen [Percocet 10-325 mg Tablet] 1 each PO TID PRN Clopidogrel Bisulfate [Plavix -] 75 mg PO DAILY #30 tablet 01/12/18 Ferrous Sulfate [Feosol] 325 mg PO DAILY ud 01/12/18 Furosemide [Lasix] 40 mg PO DAILY #30 tablet 01/12/18 Metoprolol Succinate [Toprol XL -] 50 mg PO DAILY #30 tab.sr.24h 01/12/18 Potassium Chloride 20 meq PO DAILY #30 tablet.er 01/12/18 predniSONE [Deltasone -] See Taper PO ASDIR #43 tab 02/14/18
== END 2018-03-22 10:27 | disposition short-term general hospital (02) | DRG 302 ==
LOC: JER 15:24 → JERBED 18:13 → J4W 22:42
PROVIDERS: ADMIT Internal Medicine; ATTEND Internal Medicine
DX: I25.10 Atherosclerotic heart disease of native coronary artery without angina pectoris (principal); I50.33 Acute on chronic diastolic (congestive) heart failure; I47.1 Supraventricular tachycardia; I11.0 Hypertensive heart disease with heart failure; R07.89 Other chest pain; J44.9 Chronic obstructive pulmonary disease, unspecified; E78.5 Hyperlipidemia, unspecified; I25.2 Old myocardial infarction; M10.9 Gout, unspecified; M54.9 Dorsalgia, unspecified; I27.20 Pulmonary hypertension, unspecified; M06.9 Rheumatoid arthritis, unspecified; K21.9 Gastro-esophageal reflux disease without esophagitis; G62.9 Polyneuropathy, unspecified; M25.571 Pain in right ankle and joints of right foot; M50.30 Other cervical disc degeneration, unspecified cervical region; Z85.46 Personal history of malignant neoplasm of prostate; Z95.5 Presence of coronary angioplasty implant and graft; Z87.891 Personal history of nicotine dependence
CPT/HCPCS: 36415; 71045-TC-FY; 80053; 82550; 82553; 82607; 82746; 83036; 83880; 84443; 84484; 85025; 93005; 93010; 93970-TC; 99283-25; J1644; J8610

== ENCOUNTER 2018-11-20 10:52 | Inpatient (IN) | payer OTHER, BC ==
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
[2018-11-20 12:59] LABS: BASO % 0.6 % (0-2.0); EOS % 4.4 % (0-4.5); HEMATOCRIT 27.6 % (35.4-49); HEMOGLOBIN 9.4 GM/dL (11.7-16.9); LYMPH % 23.2 % (8-40); MCH 35.6 pg (25.7-33.7); MCHC 34.2 g/dl (32.0-35.9); MEAN CELL VOLUME 103.9 fl (80-96); MEAN PLT VOLUME 6.2 fl (7.5-11.1); MONO % 11.7 % (3.8-10.2); NEUT % 60.1 % (42.8-82.8); PLATELET COUNT 347 K/MM3 (134-434); RBC 2.65 M/mm3 (4.00-5.60); RDW 13.9 % (11.9-15.9); WHITE BLOOD COUNT 6.6 K/mm3 (4.0-10.0)
[2018-11-20 13:17] LABS: ALBUMIN 3.5 g/dl (3.4-5.0); ALK PHOS 82 U/L (45-117); ANION GAP 6 MMOL/L (8-16); BILIRUBIN,TOTAL 0.5 mg/dL (0.2-1); BLOOD UREA NITROGEN 23 mg/dL (7-18); CALCIUM 8.6 mg/dL (8.5-10.1); CHLORIDE 107 mmol/L (98-107); CO2 25 mmol/L (21-32); CREATININE 0.9 mg/dL (0.55-1.3); GLUCOSE,RANDOM 89 mg/dL (74-106); MAGNESIUM 2.1 mg/dL (1.8-2.4); POTASSIUM 4.7 mmol/L (3.5-5.1); SGOT/AST 20 U/L (15-37); SGPT/ALT 23 U/L (13-61); SODIUM 137 mmol/L (136-145); TOT PROT 5.9 g/dl (6.4-8.2)
[2018-11-20 13:28] LABS: INR 1.15 (0.83-1.09); PROTHROMBIN TIME (PATIENT) 13.6 SEC (9.7-13.0)
--- NOTE | 2018-11-20 15:39 | HP ---
PCP: Leonard Lester CHIEF COMPLAINT: Numbness of arms and legs, neck pain, urinary incontinence HISTORY OF PRESENT ILLNESS: This is a 73 year old man who comes to the ED today complaining of neck pain with numbness of both hands and feet. This is a chronic problem but he says it has been worse over the last 2 weeks. He has pain in his neck that radiates into both arms. He notes the symptoms are worse when he strains to move his bowels because of constipation. He has a history of cervical and lumbar disc disease for which he has undergone multiple surgeries. He says that after his last neck surgery, he developed his current neurological symptoms. He also reports incontinence of urine which began after a urologic procedure about 2 months ago. He has not been falling. He is able to ambulate. During the last 2 weeks, he has also been experiencing chest pain both at rest and with exertion, and he notes shortness of breath with exertion. He denies orthopnea, PND, leg edema (he has chronic right ankle swelling from prior trauma and surgery). PAST MEDICAL HISTORY CAD HTN Hyperlipidemia Chronic diastolic heart failure Pulmonary HTN PSVT COPD Prostate cancer Anemia GERD Gout Rheumatoid arthritis Peripheral neuropathy Chronic neck and back pain PAST SURGICAL HISTORY Prostatectomy Multiple neck surgeries Lumbar surgery Right ankle surgery secondary to trauma PCI with stent LAD 11/30 Social History: Smoking: Former smoker - quit 50 years ago Alcohol: Has several drinks (scotch) per week Drugs: Denies Recent Travel: No Family History: Non-contributory Allergies gentamicin Allergy (Severe, Verified 11/20/18 11:23) Difficulty Breathing ketorolac [From Toradol] Allergy (Unknown, Verified 11/20/18 11:23) Difficulty Breathing propofol Allergy (Unknown, Verified 11/20/18 11:23) Difficulty Breathing Home Medications Medication Instructions Recorded Aspirin [Rachelle Chewable Aspirin] 81 mg PO DAILY 04/03/17 Febuxostat [Uloric -] 40 mg PO DAILY 04/03/17 Gabapentin 300 mg PO QID 04/03/17 Methocarbamol 750 mg PO BID PRN 04/03/17 Montelukast Na [Singulair -] 10 mg PO HS 04/03/17 Omeprazole Magnesium [Prilosec] 10 mg PO DAILY 04/03/17 Oxycodone HCl [Oxycodone HCl ER] 10 mg PO BID 10/28/17 Oxycodone HCl/Acetaminophen 1 each PO BID 10/28/17 [Percocet 10-325 mg Tablet] Clopidogrel Bisulfate [Plavix -] 75 mg PO DAILY #30 tablet 01/12/18 Ferrous Sulfate [Feosol] 325 mg PO DAILY ud 01/12/18 Furosemide [Lasix] 40 mg PO DAILY #30 tablet 01/12/18 Metoprolol Succinate [Toprol XL -] 50 mg PO DAILY #30 tab.sr.24h 01/12/18 Atorvastatin Ca [Lipitor] 40 mg PO HS 11/20/18 Folic Acid 1 mg PO DAILY 11/20/18 Linaclotide [Linzess] 145 mcg PO DAILY 11/20/18 Naloxegol Oxalate [Movantik] 25 mg PO ASDIR 11/20/18 Nortriptyline HCl [Pamelor -] 10 mg PO DAILY 11/20/18 Tamsulosin HCl [Flomax] 0.4 mg PO DAILY 11/20/18 REVIEW OF SYSTEMS CONSTITUTIONAL: Absent: fever, chills, diaphoresis, generalized weakness, malaise, loss of appetite, weight change HEENT: Absent: rhinorrhea, nasal congestion, throat pain, throat swelling, difficulty swallowing, mouth swelling, ear pain, eye pain, visual changes CARDIOVASCULAR: Present: chest pain, peripheral edema. Absent: syncope, palpitations, lightheadedness. RESPIRATORY: Present: dyspnea with exertion. Absent: cough, orthopnea, wheezing , stridor, hemoptysis GASTROINTESTINAL: Present: constipation. Absent: abdominal pain, abdominal distension, nausea, vomiting, diarrhea, melena, hematochezia GENITOURINARY: Present: incontinence of urine. Absent: dysuria, hesitancy, hematuria, flank pain MUSCULOSKELETAL: Present: neck pain, back pain, right ankle swelling. SKIN: Absent: rash, itching, pallor HEMATOLOGIC/IMMUNOLOGIC: Absent: easy bleeding, easy bruising, lymphadenopathy, frequent infections ENDOCRINE: Absent: unexplained weight gain, unexplained weight loss, heat intolerance, cold intolerance NEUROLOGIC: Present: numbness of hands and feet, bladder incontinence. Absent: headache, focal weakness, dizziness, unsteady gait, seizure, mental status changes, bowel incontinence PSYCHIATRIC: Absent: anxiety, depression, suicidal or homicidal ideation, hallucinations. PHYSICAL EXAMINATION Vital Signs - 24 hr 11/20/18 11:23 Temperature 98 F Pulse Rate 80 Respiratory 22 H Rate Blood Pressure 128/82 O2 Sat by Pulse 100 Oximetry (%) GENERAL: Awake, alert, and fully oriented, in no acute distress. HEAD: Normal with no signs of trauma. EYES: Pupils equal, round and reactive to light, extraocular movements intact, sclerae anicteric, conjunctivae clear. EARS, NOSE, THROAT: Ears normal, nares patent, oropharynx clear without exudates. Moist mucous membranes. NECK: Decreased range of motion, supple without lymphadenopathy, JVD, or masses. LUNGS: Breath sounds equal, clear to auscultation bilaterally. No wheezes, and no crackles. No accessory muscle use. HEART: Regular rate and rhythm, normal S1 and S2 without murmur, rub or gallop. ABDOMEN: Soft, nontender, not distended, normoactive bowel sounds, no guarding, no rebound, no masses. No hepatomegaly or splenomegaly. MUSCULOSKELETAL: Right ankle deformed and swollen with decreased range of motion. No CVA tenderness. UPPER EXTREMITIES: 2+ pulses, warm, well-perfused. No cyanosis. No clubbing. No peripheral edema. LOWER EXTREMITIES: 2+ pulses, warm, well-perfused. 1+ edema RLE. (+) right calf tenderness. NEUROLOGICAL: Cranial nerves II-XII intact. Normal speech. Decreased sensation both hands and both feet. Strength 5/5 in all extremities. DTRs 1+ and symmetric. PSYCHIATRIC: Cooperative. Good eye contact. Appropriate mood and affect. SKIN: Warm, dry, normal turgor, no rashes or lesions noted, normal capillary refill. Laboratory Results - last 24 hr 11/20/18 11/20/18 11/20/18 12:45 12:45 12:45 WBC 6.6 RBC 2.65 L Hgb 9.4 L Hct 27.6 L D MCV 103.9 H MCH 35.6 H MCHC 34.2 RDW 13.9 D Plt Count 347 MPV 6.2 L Absolute Neuts (auto) 4.0 Neutrophils % 60.1 Lymphocytes % 23.2 Monocytes % 11.7 H Eosinophils % 4.4 Basophils % 0.6 Nucleated RBC % 0 PT with INR 13.60 H INR 1.15 H Sodium 137 Potassium 4.7 Chloride 107 Carbon Dioxide 25 Anion Gap 6 L BUN 23 H Creatinine 0.9 Creat Clearance w eGFR > 60 Random Glucose 89 Calcium 8.6 Magnesium 2.1 Total Bilirubin 0.5 AST 20 ALT 23 Alkaline Phosphatase 82 Creatine Kinase Troponin I Total Protein 5.9 L Albumin 3.5 11/20/18 12:45 WBC RBC Hgb Hct MCV MCH MCHC RDW Plt Count MPV Absolute Neuts (auto) Neutrophils % Lymphocytes % Monocytes % Eosinophils % Basophils % Nucleated RBC % PT with INR INR Sodium Potassium Chloride Carbon Dioxide Anion Gap BUN Creatinine Creat Clearance w eGFR Random Glucose Calcium Magnesium Total Bilirubin AST ALT Alkaline Phosphatase Creatine Kinase 140 Troponin I 0.05 Total Protein Albumin ASSESSMENT/PLAN: This is a 73 year old man with a history of CAD, PCI/stent, HTN, hyperlipidemia , chronic diastolic heart failure, pulmonary HTN, PSVT, COPD, prostate cancer, prostatectomy, anemia, GERD, gout, RA, peripheral neuropathy, chronic neck pain , chronic back pain, multiple cervical and lumbar surgeries who presented to the ED with worsening neck pain, numbness of his hands, chest pain, and SOBOE. 1. Chest pain with dyspnea on exertion - Chest pain might be related to his cervical disease as his radicular symptoms increased at the same time as he developed chest pain - Had negative nuclear stress 05/2017 - Observe on telemetry - Serial troponins - Check BNP - Chest CTA to evaluate for PE - Cardiology consult - Neurosurgery consult for cervical disc disease with radiculopathy 2. RLE edema and calf tenderness - Venous doppler to evaluate for DVT 3. CAD, history of PCI/stent to LAD in 11/2017 at [facility] - Continue aspirin, Plavix, Toprol XL, Lipitor 4. HTN - Continue Toprol XL, Lasix 5. Hyperlipidemia - Continue Lipitor 6. Chronic diastolic heart failure - No evidence of acute heart failure - Continue Lasix 7. Pulmonary HTN - Might account for his dyspnea and elevated troponin 8. PSVT - Continue Toprol XL 9. COPD - Stable 10. BPH, prostate cancer, history of prostatectomy with urinary incontinence - Continue Flomax - Urology consult 11. Anemia, macrocytic - Prior workup has revealed normal iron, normal iron sat, low TIBC, normal TSH, normal B12, high folate - Possible alcohol-related - Continue ferrous sulfate, folic acid - Monitor hemoglobin 12. GERD - Continue Prilosec 13. History of gout - Continue Uloric 14. Rheumatoid arthritis 15. Cervical and lumbar disc disease with radiculopathy and peripheral neuropathy - Continue Neurontin, Pamelor, OxyContin, oxycodone as needed, Robaxin as needed - MRI of C-spine (10/2017) showed multilevel anterior and posterior cervical spine surgery, moderate probable extruded broad-based C6-C7 disc herniation - MRI of L-spine (10/2017) showed L1-L2 moderate degenerative disc disease with residual minimal disc bulge slightly to moderately narrowing the foramina; L2-L3 moderate degenerative disc disease with mild to moderate left paracentral disc herniation impinging the exiting left L3 nerve root and L2 nerve root in foramen, anterior epidural density resulting in moderately severe canal stenosis ; L5-S1 mild broad-based disc bulge reaching both L5 nerve roots - Neurosurgery consult 16. Chronic constipation, opioid-induced - Continue Jacob Boykin
--- NOTE | 2018-11-20 15:49 | PDOC ---
Attending Attestation - HPI HPI: 11/20/18 16:04 The patient is a 73 year old female with a significant PMH of hyperlipidemia, hypertension, COPD, CHF (on lasix), CAD, ND s/p stent(x2) 1 year ago, chronic cervical and back pain, and prostate ca (prostate removed 10 years ago) who presents to the emergency department with worsening back pain for 4 months. The patient reports that he has been experiencing some worsening associated difficulty walking secondary to his back pain with associated shortness of breath and chest pain. He also reports some neck, finger and toe pain with his symptoms. The patient reports that in the past month he has been some increased urinary incontinence. He denies any abdominal pain or recent injury /trauma. The patient reports that he had a MRI about 1 year ago but, denies any neuro follow up. The patient denies any other symptoms or complaints. - Medical Decision Making 11/20/18 16:04 The patient is a 73 year old female with a significant PMH of hyperlipidemia, hypertension, COPD, CHF (on lasix), CAD, ND s/p stent(x2) 1 year ago, chronic cervical and back pain, and prostate ca (prostate removed 10 years ago) who presents to the emergency department with worsening back pain for 4 months. He will get labs drawn, ekg, chest x-ray. Patients neuro surgeon and PCP will be contacted. <Rich[place] - Last Filed: 11/20/18 16:04> - Resident Resident Name: Magda Arrington - ED Attending Attestation I have performed the following: I have examined & evaluated the patient, The case was reviewed & discussed with the resident, I agree w/resident's findings & plan, Exceptions are as noted - Physicial Exam PE: 11/20/18 16:18 Agree with Residents PE - Medical Decision Making 11/20/18 16:17 73 years old with multiple comorbidities presents emergency Department with chest pain shortness of breath and progressively worsening cervical and lumbar back pain, progressively worsening numbness and incontinence which has been present for several months He follows with pain management he has had several surgeries on his spine in the past His heart score is 4 his EKG is nonischemic EKG performed at Troponin negative. We'll admit to medicine for further management Neurosurgery consult did although given normal neurologic exam normal rectal exam and several months of progressively worsening symptoms patient does not represent represented an acute neurosurgical emergency. <J Carlos Bains - Last Filed: 11/20/18 16:19> Attestations - Attestations 11/20/18 16:05 Documentation prepared by Richar Bay, acting as medical record coder for J Carlos Bains MD. <Rich[place] - Last Filed: 11/20/18 16:04>
[2018-11-20] MEDS ORDERED: oxyCODONE HCL 5 MG TABLET PO PRN (15:50)
[2018-11-20] MEDS ORDERED: ACETAMINOPHEN 325 MG TABLET (FP) PO PRN (15:51)
[2018-11-20] MEDS: GABAPENTIN 300 MG CAPSULE (FP) PO SCH ×2 (17:00→21:59)
[2018-11-20] MEDS ORDERED: GABAPENTIN 100 MG CAPSULE (FP) ONE (17:03)
[2018-11-20 17:25] LABS: N-TERMINAL BNP 3983.4 pg/ml (5-125)
[2018-11-20] MEDS ORDERED: METHOCARBAMOL 750 MG TABLET PO PRN (18:57)
[2018-11-20] MEDS: MONTELUKAST NA 10 MG TABLET PO SCH (21:59)
[2018-11-20] MEDS: oxyCODONE HCL 10 MG SUSTAINED ACTING TABLET PO SCH (21:59)
[2018-11-20] MEDS: ATORVASTATIN CA 40 MG TABLET (FP) PO SCH (21:59)
[2018-11-20] MEDS ORDERED: ZOLPIDEM TARTRATE 5 MG TABLET PO ONE (22:30)
[2018-11-21 00:52] VITALS: BMI 29.2
[2018-11-21 02:16] LABS: URINE APPEARANCE CLEAR; URINE BILIRUBIN NEGATIVE (<2.0 mg/dL); URINE COLOR LTYELLOW; URINE GLUCOSE (UA) NEGATIVE (NEGATIVE); URINE KETONE NEGATIVE (NEGATIVE); URINE LEUK ESTERASE NEGATIVE (NEGATIVE); URINE NITRITE NEGATIVE (NEGATIVE); URINE PROTEIN NEGATIVE (NEGATIVE); URINE UROBILINOGEN NEGATIVE mg/dL (0.2-1.0)
[2018-11-21] MEDS ORDERED: PATIENT'S OWN MEDICATION (NON-FORMULARY) (Naloxegol Oxalate [Movantik] 25 MG) PO SCH (07:00)
[2018-11-21 07:15] LABS: HEMATOCRIT 26.2 % (35.4-49); MCH 35.7 pg (25.7-33.7); MCHC 34.5 g/dl (32.0-35.9); MEAN CELL VOLUME 103.7 fl (80-96); MEAN PLT VOLUME 6.9 fl (7.5-11.1); PLATELET COUNT 364 K/MM3 (134-434); RBC 2.53 M/mm3 (4.00-5.60); RDW 13.6 % (11.9-15.9); WHITE BLOOD COUNT 6.3 K/mm3 (4.0-10.0)
[2018-11-21 07:18] LABS: ANION GAP 7 MMOL/L (8-16); BLOOD UREA NITROGEN 20 mg/dL (7-18); CALCIUM 8.2 mg/dL (8.5-10.1); CHLORIDE 107 mmol/L (98-107); CO2 26 mmol/L (21-32); CREATININE 0.7 mg/dL (0.55-1.3); GLUCOSE,RANDOM 70 mg/dL (74-106); POTASSIUM 4.6 mmol/L (3.5-5.1); SODIUM 139 mmol/L (136-145)
--- NOTE | 2018-11-21 08:02 | CON.CARD ---
Consult Consult Specialty:: Cardiology - History of Present Illness History of Present Illness: Pt is a 73yo M with PMH of CAD s/p stent 2018, HTN, HLD, Prostate Ca s/p resection 10 years ago in remission, COPD, CHF, Chronic Back Pain s/p multiple surgeries presenting to ED with complaints of neck pain, neck numbness, numbness in fingers, pain in knees found to be in new onset AF. Pain has been going on for "years" but has gotten worse over the course of the past 4 months. Pt states that he has also noticed urine incontinence that has gotten worse over the past month. He also states that he feels SOB and has substernal chest pain with exertion but is fine at rest. He is still able to ambulate but then he starts to feel short of breath and feels the pain in his knees. He denies recent surgeries, recent injuries, falls, syncope, cough, fevers, chills, bowel incontinence, weakness, headaches, changes in vision. PMD: Veronica Lester Neuro: Gee (has not seen) Neurosurgeon: Reji PMH: see hpi PSH: see hpi Meds: see med rec Social: denies PMH CAD s/p PCI LAD 2007 -Moderate PHTN -Severe Cervical Radiculopathy - Past Medical History SKEIN DYER: Yes: Peripheral Neuropathy Cardio/Vascular: Yes: CAD, HTN, Hyperlipdemia Gastrointestinal: Yes: GERD Musculoskeletal: Yes: Other (Chronic rt ankle pain) Rheumatology: Yes: Gout - Alcohol/Substance Use Hx Alcohol Use: Yes (X 3 WEEK) History of Substance Use: reports: None - Smoking History Smoking history: Former smoker Have you smoked in the past 12 months: No - Social History ADL: Independent History of Recent Travel: No Home Medications - Allergies Allergies/Adverse Reactions: Allergies Allergy/AdvReac Type Severity Reaction Status Date / Time gentamicin Allergy Severe Difficulty Verified 11/20/18 11:23 Breathing ketorolac [From Toradol] Allergy Unknown Difficulty Verified 11/20/18 11:23 Breathing propofol Allergy Unknown Difficulty Verified 11/20/18 11:23 Breathing - Home Medications Home Medications: Ambulatory Orders Aspirin [Rachelle Chewable Aspirin] 81 mg PO DAILY 04/03/17 Febuxostat [Uloric -] 40 mg PO DAILY 04/03/17 Gabapentin 300 mg PO QID 06/22/17 Methocarbamol 750 mg PO BID PRN 04/03/17 Montelukast Na [Singulair -] 10 mg PO HS 04/03/17 Omeprazole Magnesium [Prilosec] 10 mg PO DAILY 04/03/17 Oxycodone HCl [Oxycodone HCl ER] 10 mg PO BID 10/28/17 Oxycodone HCl/Acetaminophen [Percocet 10-325 mg Tablet] 1 each PO BID 10/28/17 Clopidogrel Bisulfate [Plavix -] 75 mg PO DAILY #30 tablet 01/12/18 Ferrous Sulfate [Feosol] 325 mg PO DAILY ud 01/12/18 Furosemide [Lasix] 40 mg PO DAILY #30 tablet 01/12/18 Metoprolol Succinate [Toprol XL -] 50 mg PO DAILY #30 tab.sr.24h 01/12/18 Atorvastatin Ca [Lipitor] 40 mg PO HS 11/20/18 Folic Acid 1 mg PO DAILY 11/20/18 Linaclotide [Linzess] 145 mcg PO DAILY 11/20/18 Naloxegol Oxalate [Movantik] 25 mg PO ASDIR 11/20/18 Nortriptyline HCl [Pamelor -] 10 mg PO DAILY 11/20/18 Tamsulosin HCl [Flomax] 0.4 mg PO DAILY 11/20/18 Zolpidem Tartrate [Ambien] 10 mg PO HS PRN 11/20/18 Review of Systems - Review of Systems Constitutional: reports: No Symptoms Eyes: reports: No Symptoms HENT: reports: No Symptoms Neck: reports: No Symptoms Cardiovascular: reports: No Symptoms Gastrointestinal: reports: No Symptoms Genitourinary: reports: No Symptoms Breasts: reports: No Symptoms Reported Musculoskeletal: reports: No Symptoms Integumentary: reports: No Symptoms Neurological: reports: No Symptoms Endocrine: reports: No Symptoms Hematology/Lymphatic: reports: No Symptoms Psychiatric: reports: No Symptoms Vital Signs: Vital Signs Temperature 98.0 F 11/21/18 06:00 Pulse Rate 74 11/21/18 06:00 Respiratory Rate 20 11/21/18 06:00 Blood Pressure 124/67 11/21/18 06:00 O2 Sat by Pulse Oximetry (%) 100 11/20/18 20:05 Constitutional: Yes: Well Nourished, No Distress, Calm Eyes: Yes: WNL, Conjunctiva Clear, EOM Intact HENT: Yes: WNL, Atraumatic, Normocephalic Neck: Yes: WNL, Supple, Trachea Midline Respiratory: Yes: WNL, Regular, CTA Bilaterally Gastrointestinal: Yes: WNL, Normal Bowel Sounds Renal/: Yes: WNL Cardiovascular: Yes: Pulse Irregular Musculoskeletal: Yes: WNL Extremities: Yes: WNL Integumentary: Yes: WNL Neurological: Yes: WNL, Alert, Oriented ...Motor Strength: WNL Psychiatric: Yes: WNL, Alert, Oriented - Other Data Labs, Other Data: CBC, BMP 11/21/18 05:30 11/21/18 05:30 INR, PTT INR 1.15 (0.83-1.09) H 11/20/18 12:45 Troponin, BNP 11/20/18 11/20/18 11/20/18 12:45 12:45 19:00 Troponin I 0.05 0.06 H B-Natriuretic Peptide 3983.4 H 11/21/18 01:30 Troponin I 0.06 H B-Natriuretic Peptide Troponin, BNP 11/20/18 11/20/18 11/20/18 12:45 12:45 19:00 Troponin I 0.05 0.06 H B-Natriuretic Peptide 3983.4 H 11/21/18 01:30 Troponin I 0.06 H B-Natriuretic Peptide Imaging - Results Chest X-ray: Image Reviewed (no i/e) EKG: Image Reviewed (af rep abn) Problem List - Problems (1) Back pain Code(s): M54.9 - DORSALGIA, UNSPECIFIED Qualifiers: Back pain location: back pain in other location Chronicity: chronic Qualified Code(s): M54.9 - Dorsalgia, unspecified; G89.29 - Other chronic pain (2) Chest pain Code(s): R07.9 - CHEST PAIN, UNSPECIFIED Qualifiers: Chest pain type: unspecified Qualified Code(s): R07.9 - Chest pain, unspecified (3) SOB (shortness of breath) on exertion Code(s): R06.02 - SHORTNESS OF BREATH (4) Acute on chronic diastolic (congestive) heart failure Code(s): I50.33 - ACUTE ON CHRONIC DIASTOLIC (CONGESTIVE) HEART FAILURE (5) Acute renal failure Code(s): N17.9 - ACUTE KIDNEY FAILURE, UNSPECIFIED (6) Altered mental status Code(s): R41.82 - ALTERED MENTAL STATUS, UNSPECIFIED Qualifiers: Altered mental status type: transient alteration of awareness Qualified Code(s): R40.4 - Transient alteration of awareness (7) Anaphylactic reaction Code(s): T78.2XXA - ANAPHYLACTIC SHOCK, UNSPECIFIED, INITIAL ENCOUNTER (8) Anemia Code(s): D64.9 - ANEMIA, UNSPECIFIED (9) Ankle and foot joint derangement Code(s): M24.9 - JOINT DERANGEMENT, UNSPECIFIED (10) Arthritis Code(s): M19.90 - UNSPECIFIED OSTEOARTHRITIS, UNSPECIFIED SITE (11) Autoimmune disease Code(s): D89.89 - OTH DISRD INVOLVING THE IMMUNE MECHANISM, NEC (12) CAD (coronary artery disease) Code(s): I25.10 - ATHSCL HEART DISEASE OF [place] CORONARY ARTERY W/O ANG PCTRS (13) COPD (chronic obstructive pulmonary disease) Code(s): J44.9 - CHRONIC OBSTRUCTIVE PULMONARY DISEASE, UNSPECIFIED (14) Chest pain at rest Code(s): R07.9 - CHEST PAIN, UNSPECIFIED (15) Chronic back pain Code(s): M54.9 - DORSALGIA, UNSPECIFIED; G89.29 - OTHER CHRONIC PAIN Qualifiers: Back pain location: back pain in unspecified location Back pain laterality : midline Qualified Code(s): M54.9 - Dorsalgia, unspecified; G89.29 - Other chronic pain (16) Congestive heart failure Code(s): I50.9 - HEART FAILURE, UNSPECIFIED Qualifiers: Heart failure type: unspecified Heart failure chronicity: acute Qualified Code(s): I50.9 - Heart failure, unspecified (17) Elevated troponin Code(s): R74.8 - ABNORMAL LEVELS OF OTHER SERUM ENZYMES (18) Erectile dysfunction Code(s): N52.9 - MALE ERECTILE DYSFUNCTION, UNSPECIFIED (19) Fe deficiency anemia Code(s): D50.9 - IRON DEFICIENCY ANEMIA, UNSPECIFIED (20) GERD (gastroesophageal reflux disease) Code(s): K21.9 - GASTRO-ESOPHAGEAL REFLUX DISEASE WITHOUT ESOPHAGITIS (21) GI bleed Code(s): K92.2 - GASTROINTESTINAL HEMORRHAGE, UNSPECIFIED (22) HLD (hyperlipidemia) Code(s): E78.5 - HYPERLIPIDEMIA, UNSPECIFIED (23) HTN (hypertension) Code(s): I10 - ESSENTIAL (PRIMARY) HYPERTENSION (24) Hx of heart artery stent Code(s): Z95.5 - PRESENCE OF CORONARY ANGIOPLASTY IMPLANT AND GRAFT (25) Hx of myocardial infarction Code(s): I25.2 - OLD MYOCARDIAL INFARCTION (26) Intractable back pain Code(s): M54.9 - DORSALGIA, UNSPECIFIED (27) Low blood pressure Code(s): I95.9 - HYPOTENSION, UNSPECIFIED (28) Lumbar radiculopathy Code(s): M54.16 - RADICULOPATHY, LUMBAR REGION (29) Numbness and tingling Code(s): R20.0 - ANESTHESIA OF SKIN; R20.2 - PARESTHESIA OF SKIN (30) Prolonged QT interval Code(s): R94.31 - ABNORMAL ELECTROCARDIOGRAM [ECG] [EKG] (31) Prostate CA Code(s): C61 - MALIGNANT NEOPLASM OF PROSTATE (32) S/P lumbar fusion Code(s): Z98.1 - ARTHRODESIS STATUS (33) Sepsis Code(s): A41.9 - SEPSIS, UNSPECIFIED ORGANISM Qualifiers: Sepsis type: sepsis due to unspecified organism Qualified Code(s): A41.9 - Sepsis, unspecified organism (34) Severe mitral regurgitation Code(s): I34.0 - NONRHEUMATIC MITRAL (VALVE) INSUFFICIENCY (35) Syncope Code(s): R55 - SYNCOPE AND COLLAPSE (36) Tachycardia Code(s): R00.0 - TACHYCARDIA, UNSPECIFIED (37) UTI (urinary tract infection) Code(s): N39.0 - URINARY TRACT INFECTION, SITE NOT SPECIFIED Qualifiers: Urinary tract infection type: site unspecified Hematuria presence: with hematuria Qualified Code(s): N39.0 - Urinary tract infection, site not specified (38) Weakness Code(s): R53.1 - WEAKNESS Assessment/Plan Pt is a 73yo M with PMH of CAD s/p stent 2018, HTN, HLD, Prostate Ca s/p resection 10 years ago in remission, COPD, CHF, Chronic Back Pain s/p multiple surgeries presenting to ED with complaints of neck pain, neck numbness, numbness in fingers, pain in knees found to be in new onset AF. slight elevation in tnis , elevated BNP Plan; Telemetry serial ce MIBI ST when stable anemia w/u echo will start AC with lovenox 100 mg BID skilled nursing AC with NOACS to be started after anemia w/u Coverage for dr. Gant
[2018-11-21] MEDS ORDERED: POLYETHYLENE GLYCOL 3350 119 GM BTL PO ONE (08:10)
[2018-11-21] MEDS: oxyCODONE HCL 10 MG SUSTAINED ACTING TABLET PO SCH ×2 (09:35→21:55)
[2018-11-21] MEDS: FUROSEMIDE 40 MG TABLET (FP) PO SCH (09:35)
[2018-11-21] MEDS: FERROUS SO4 325 MG TABLET (FP) PO SCH (09:35)
[2018-11-21] MEDS: FOLIC ACID 1 MG TABLET (FP) PO SCH (09:35)
[2018-11-21] MEDS: TAMSULOSIN HCL 0.4 MG CAP PO SCH (09:36)
[2018-11-21] MEDS: GABAPENTIN 300 MG CAPSULE (FP) PO SCH ×4 (09:36→21:55)
[2018-11-21] MEDS: ASPIRIN 81 MG CHEWABLE TABLETS PO SCH (09:36)
[2018-11-21] MEDS: CLOPIDOGREL BISULFATE 75 MG TABLET (FP) PO SCH ×2 (09:36→09:50)
[2018-11-21] MEDS ORDERED: PATIENT'S OWN MEDICATION (NON-FORMULARY) (Linaclotide [Linzess] 145 MCG) PO SCH (10:00)
[2018-11-21] MEDS: NORTRIPTYLINE HCL 10 MG CAPSULE PO SCH (11:36)
[2018-11-21] MEDS: FEBUXOSTAT 40 MG TAB PO SCH (11:36)
--- NOTE | 2018-11-21 12:00 | CONSULT ---
Consult Consult Specialty:: UROLOGY Reason for Consultation:: Prostate cancer - History of Present Illness Chief Complaint: Urinary incontinence History of Present Illness: 73 Y/O Male patient with history of COPD, CAD, CHF, HT and prostate cancer, he is admitted because of neck pain, he is urinating good, nocturia, good flow occasional incontinence on diapers, no dysuria no hematuria. O/E soft lax abd no palpable bladder. BUN 20 S.Creat 0.7 WBC 6.6 hgb 9 - Past Medical History HEADER BOSS: Yes: Peripheral Neuropathy Cardio/Vascular: Yes: CAD, HTN, Hyperlipdemia Gastrointestinal: Yes: GERD Musculoskeletal: Yes: Other (Chronic rt ankle pain) Rheumatology: Yes: Gout - Alcohol/Substance Use Hx Alcohol Use: Yes (X 3 WEEK) History of Substance Use: reports: None - Smoking History Smoking history: Former smoker Have you smoked in the past 12 months: No - Social History ADL: Independent History of Recent Travel: No Home Medications - Allergies Allergies/Adverse Reactions: Allergies Allergy/AdvReac Type Severity Reaction Status Date / Time gentamicin Allergy Severe Difficulty Verified 11/20/18 11:23 Breathing ketorolac [From Toradol] Allergy Unknown Difficulty Verified 11/20/18 11:23 Breathing propofol Allergy Unknown Difficulty Verified 11/20/18 11:23 Breathing - Home Medications Home Medications: Ambulatory Orders Aspirin [Rachelle Chewable Aspirin] 81 mg PO DAILY 04/03/17 Febuxostat [Uloric -] 40 mg PO DAILY 04/03/17 Gabapentin 300 mg PO QID 04/03/17 Methocarbamol 750 mg PO BID PRN 04/03/17 Montelukast Na [Singulair -] 10 mg PO HS 04/03/17 Omeprazole Magnesium [Prilosec] 10 mg PO DAILY 04/03/17 Oxycodone HCl [Oxycodone HCl ER] 10 mg PO BID 10/28/17 Oxycodone HCl/Acetaminophen [Percocet 10-325 mg Tablet] 1 each PO BID 10/28/17 Clopidogrel Bisulfate [Plavix -] 75 mg PO DAILY #30 tablet 01/12/18 Ferrous Sulfate [Feosol] 325 mg PO DAILY ud 01/12/18 Furosemide [Lasix] 40 mg PO DAILY #30 tablet 01/12/18 Metoprolol Succinate [Toprol XL -] 50 mg PO DAILY #30 tab.sr.24h 01/12/18 Atorvastatin Ca [Lipitor] 40 mg PO HS 11/20/18 Folic Acid 1 mg PO DAILY 11/20/18 Linaclotide [Linzess] 145 mcg PO DAILY 11/20/18 Naloxegol Oxalate [Movantik] 25 mg PO ASDIR 11/20/18 Nortriptyline HCl [Pamelor -] 10 mg PO DAILY 11/20/18 Tamsulosin HCl [Flomax] 0.4 mg PO DAILY 11/20/18 Zolpidem Tartrate [Ambien] 10 mg PO HS PRN 11/20/18 Physical Exam Vital Signs: Vital Signs Temperature 98.0 F 11/21/18 06:00 Pulse Rate 74 11/21/18 06:00 Respiratory Rate 20 11/21/18 06:00 Blood Pressure 124/67 11/21/18 06:00 O2 Sat by Pulse Oximetry (%) 100 11/20/18 20:05 Labs: CBC, BMP 11/21/18 05:30 11/21/18 05:30 Assessment/Plan Plan Renal and bladder U/S with PVR continue flomax.
[2018-11-21] MEDS: ENOXAPARIN NA (PORCINE) 100 MG/1 ML DISP.SYRIN SQ SCH ×2 (12:30→21:54)
[2018-11-21] MEDS: DOCUSATE SODIUM 100 MG CAPSULE (FP) PO SCH ×2 (13:36→21:54)
--- NOTE | 2018-11-21 13:55 | PN ---
Physical Exam: SUBJECTIVE: Patient seen and examined at the bedside. family present. as per , patient has fallen at home multiple times. Has right foot ankle edema and right lower ext edema. OBJECTIVE: Vital Signs Period Temp Pulse Resp BP Sys/Dyson Pulse Ox Last 24 Hr 97.8 F-98.4 F 62-94 20-22 103-140/62-83 96-100 GENERAL: The patient is awake, alert, and fully oriented, in no acute distress. HEAD: Normal with no signs of trauma. EYES: PERRL, extraocular movements intact, sclera anicteric, conjunctiva clear. No ptosis. ENT: Ears normal, nares patent, oropharynx clear without exudates, moist mucous membranes. NECK: Trachea midline, full range of motion, supple. LUNGS: Breath sounds equal, mild congestion bilaterally HEART: Regular rate and rhythm, ABDOMEN: Soft, nontender, nondistended, normoactive bowel sounds EXTREMITIES: +2 edema right leg, ankle with edema and deformity of right foot NEUROLOGICAL: still having numbness of upper extremities. speech clear. facial symmetry PSYCH: Normal mood, normal affect. SKIN: Warm, dry, normal turgor, no rashes or lesions noted Laboratory Results - last 24 hr 11/20/18 11/20/18 11/21/18 12:45 19:00 01:30 WBC RBC Hgb Hct MCV MCH MCHC RDW Plt Count MPV Sodium 137 Potassium 4.7 Chloride 107 Carbon Dioxide 25 Anion Gap 6 L BUN 23 H Creatinine 0.9 Creat Clearance w eGFR > 60 Random Glucose 89 Calcium 8.6 Magnesium 2.1 Total Bilirubin 0.5 AST 20 ALT 23 Alkaline Phosphatase 82 Troponin I 0.06 H B-Natriuretic Peptide 3983.4 H Total Protein 5.9 L Albumin 3.5 Urine Color Ltyellow Urine Appearance Clear Urine pH 5.0 Ur Specific [place] 1.036 H Urine Protein Negative Urine Glucose (UA) Negative Urine Ketones Negative Urine Blood Negative Urine Nitrite Negative Urine Bilirubin Negative Urine Urobilinogen Negative Ur Leukocyte Esterase Negative 11/21/18 11/21/18 11/21/18 01:30 05:30 05:30 WBC 6.3 RBC 2.53 L Hgb 9.0 L Hct 26.2 L MCV 103.7 H MCH 35.7 H MCHC 34.5 RDW 13.6 Plt Count 364 MPV 6.9 L D Sodium 139 Potassium 4.6 Chloride 107 Carbon Dioxide 26 Anion Gap 7 L BUN 20 H Creatinine 0.7 Creat Clearance w eGFR > 60 Random Glucose 70 L Calcium 8.2 L Magnesium Total Bilirubin AST ALT Alkaline Phosphatase Troponin I 0.06 H B-Natriuretic Peptide Total Protein Albumin Urine Color Urine Appearance Urine pH Ur Specific [place] Urine Protein Urine Glucose (UA) Urine Ketones Urine Blood Urine Nitrite Urine Bilirubin Urine Urobilinogen Ur Leukocyte Esterase Active Medications Generic Name Dose Route Start Last Admin Trade Name Freq PRN Reason Stop Dose Admin Acetaminophen 650 mg 11/20/18 15:51 Tylenol - PO Q4H PRN PAIN LEVEL 1-5 Aspirin 81 mg 11/21/18 10:00 11/21/18 09:36 Asa - PO 81 mg DAILY [facility] Administration Atorvastatin Calcium 40 mg 11/20/18 22:00 11/20/18 21:59 Lipitor - PO 40 mg HS [facility] Administration Clopidogrel Bisulfate 75 mg 11/21/18 10:00 11/21/18 09:50 Plavix - PO Not Given DAILY [facility] Docusate Sodium 100 mg 11/21/18 14:00 11/21/18 13:36 Colace - PO 100 mg TID [facility] Administration Enoxaparin Sodium 100 mg 11/21/18 11:00 Lovenox - SQ BID [facility] Febuxostat 40 mg 11/21/18 10:00 11/21/18 11:36 Uloric - PO 40 mg DAILY [facility] Administration Ferrous Sulfate 325 mg 11/21/18 10:00 11/21/18 09:35 Feosol - PO 325 mg DAILY [facility] Administration Folic Acid 1 mg 11/21/18 10:00 11/21/18 09:35 Folic Acid - PO 1 mg DAILY [facility] Administration Furosemide 40 mg 11/21/18 10:00 11/21/18 09:35 Lasix - PO 40 mg DAILY [facility] Administration Gabapentin 300 mg 11/20/18 18:00 11/21/18 13:36 Neurontin - PO 300 mg QID [facility] Administration Methocarbamol 750 mg 11/20/18 18:57 Robaxin - PO Q12H PRN MUSCLE SPASMS Metoprolol Succinate 50 mg 11/21/18 10:00 11/21/18 09:36 Toprol Xl - PO 50 mg DAILY [facility] Administration Montelukast Sodium 10 mg 11/20/18 22:00 11/20/18 21:59 Singulair - PO 10 mg HS [facility] Administration Non-Formulary Medication 145 mcg 11/21/18 10:00 Linaclotide [Linzess] PO DAILY [facility] Non-Formulary Medication 25 mg 11/21/18 07:00 Naloxegol Oxalate [Movantik] PO AM [facility] Non-Formulary Medication 10 mg 11/21/18 10:00 Omeprazole Magnesium [Prilosec] PO DAILY [facility] Nortriptyline HCl 10 mg 11/21/18 10:00 11/21/18 11:36 Pamelor - PO 10 mg DAILY [facility] Administration Oxycodone HCl 10 mg 11/20/18 15:50 Roxicodone - PO Q6H PRN PAIN LEVEL 6-10 Oxycodone HCl 10 mg 11/20/18 22:00 11/21/18 09:35 Oxycontin - PO 10 mg BID [facility] Administration Tamsulosin HCl 0.4 mg 11/21/18 10:00 11/21/18 09:36 Flomax - PO 0.4 mg DAILY [facility] Administration ASSESSMENT/PLAN: Patient is a 73 year old male with a past medical history of CAD s/p stent 2018 , HTN, HLD, Prostate Ca s/p resection 10 years ago in remission, COPD, CHF, Chronic Back Pain s/p multiple surgeries presenting to ED with complaints of neck pain, neck numbness, numbness in fingers, pain in knees worse over the course of the past 4 months. Pt states that he has also noticed urine incontinence that has gotten worse over the past month. He also states that he feels SOB and has substernal chest pain with exertion. He is still able to ambulate but then he starts to feel short of breath. Has fallen in past secondary to right foot deformity. Card: CAD s/p stents: On asa, lipitor, plavix HLD: on lipitor Cardiac disease/Hypertension. controlled. Continue aspirin, Plavix, Toprol XL, Lipitor CHF. monitor intake and output. does not appear volume overloaded. On lasix. Monitor daily weights. New onset afib. Chest pain. resolved. but still having some dyspnea on exertion. denies shortness of breath at rest. troponins trended up to 0.06, but lower than previous visits. continue to monitor on tele. Seen by Cardiology and now on Lovenox 100mg BID. Chest CTA negative for PE, On Toprol. Onc: Prostate cancer, history. in remission Vascular RLE edema and calf tenderness, right foot deformity Negative for DVT Pulm: COPD, not in acute exacerbation. reports to exposure to asbestos in the past. Oxygen levels stable. Duonebs prn Spine: Chronic back pain s/p multiple surgeries, now with back pain, neck numbness, numbness in fingers, knee pain Pain managed with Oxycontin, oxycodone. continue Neurontin, Pamelor. Neurology consult. Falls, multiple reported. Poor ambulatory status/falls at home, likely due to underlying disc disease and right foot deformity Physical therapy Anemia On iron therapy, folic acid, multivitamin daily cbc. fen tolerating PO monitor electrolytes low salt diet prophy heparin
--- NOTE | 2018-11-21 14:41 | EKG ---
Test Reason : Blood Pressure : / mmHG Vent. Rate : 065 BPM Atrial Rate : 063 BPM P-R Int : 000 ms QRS Dur : 096 ms QT Int : 436 ms P-R-T Axes : 000 005 -16 degrees QTc Int : 453 ms ATRIAL FIBRILLATION ABNORMAL ECG WHEN COMPARED WITH ECG OF 20-NOV-2018 12:58, NO SIGNIFICANT CHANGE WAS FOUND Confirmed by Nick Voss MD ([id number]) on 11/21/2018 2:40:58 PM Referred By: Confirmed By:Nick Voss MD
--- NOTE | 2018-11-21 14:42 | EKG ---
Test Reason : Blood Pressure : / mmHG Vent. Rate : 073 BPM Atrial Rate : 068 BPM P-R Int : 000 ms QRS Dur : 100 ms QT Int : 416 ms P-R-T Axes : 000 005 -05 degrees QTc Int : 458 ms ATRIAL FIBRILLATION ABNORMAL ECG WHEN COMPARED WITH ECG OF 20-MAR-2018 15:34, ATRIAL FIBRILLATION HAS REPLACED SINUS RHYTHM Confirmed by Nick Voss MD ([id number]) on 11/21/2018 2:42:18 PM Referred By: Confirmed By:Nick Voss MD
[2018-11-21] MEDS: MONTELUKAST NA 10 MG TABLET PO SCH (21:55)
[2018-11-21] MEDS: ATORVASTATIN CA 40 MG TABLET (FP) PO SCH (21:55)
--- NOTE | 2018-11-21 23:22 | CONSULT ---
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 The patient describes several weeks of progressing numbness and tingling in his hands, dropping things and diminished capacity with fine motor tasks. The patient has significant low back pain as well. MRI of the Cervical spine from September 2017 demonstrates two, non-contiguous anterior constructs with cages and plates as well as posterior cervical decompression and fusion. There is proximal and distal junctional compression on this exam. Lumbar imaging suggests L3-S1 posterior instrumented fusion with T12L1, L12 and L23 degenerative changes with facet and ligamentous hypertrophy, osteophytes, vacuum phenomenon and listhesis. This is based upon review of the CT Abdomen and Pelvis taken in June 2018. There is suggestion based upon these old exams that he may have treatment options for both his Cervical and Lumbar spine, however, imaging contemporaneous with his current condition is required to develop a proper plan of care. - GI/DVT Prophylaxis - MRI & CT Cervical Spine (both without contrast) - MRI & CT Lumbar Spine will also be helpful, however, isn't immediately required. - Will order Cervical imaging and discuss potential treatment options
[2018-11-21] MEDS: ZOLPIDEM TARTRATE 5 MG TABLET PO PRN (23:25)
[2018-11-22] MEDS: DOCUSATE SODIUM 100 MG CAPSULE (FP) PO SCH ×3 (06:38→21:43)
--- NOTE | 2018-11-22 09:22 | PN ---
Physical Exam: SUBJECTIVE: Patient seen and examined at the bedside. no acute events overnight. still with back pain and neck pain. seen by neurosurgery overnight. OBJECTIVE: Vital Signs Period Temp Pulse Resp BP Sys/Dyson Pulse Ox Last 24 Hr 97.8 F-98.2 F 62-94 20-20 107-140/58-83 100 GENERAL: The patient is awake, alert, and fully oriented, in no acute distress. HEAD: Normal with no signs of trauma. EYES: PERRL, extraocular movements intact, sclera anicteric, conjunctiva clear. No ptosis. ENT: Ears normal, nares patent, oropharynx clear without exudates, moist mucous membranes. NECK: Trachea midline, full range of motion, supple. LUNGS: Breath sounds equal, mild congestion bilaterally HEART: irregular ABDOMEN: Soft, nontender, nondistended, normoactive bowel sounds EXTREMITIES: +2 edema right leg, ankle with edema and deformity of right foot- wears boot at home for balance. NEUROLOGICAL: still having numbness of upper extremities. speech clear. facial symmetry PSYCH: Normal mood, normal affect. SKIN: Warm, dry, normal turgor, no rashes or lesions noted Active Medications Generic Name Dose Route Start Last Admin Trade Name Freq PRN Reason Stop Dose Admin Acetaminophen 650 mg 11/20/18 15:51 Tylenol - PO Q4H PRN PAIN LEVEL 1-5 Aspirin 81 mg 11/21/18 10:00 11/21/18 09:36 Asa - PO 81 mg DAILY [facility] Administration Atorvastatin Calcium 40 mg 11/20/18 22:00 11/21/18 21:55 Lipitor - PO 40 mg HS [facility] Administration Clopidogrel Bisulfate 75 mg 11/21/18 10:00 11/21/18 09:50 Plavix - PO Not Given DAILY [facility] Docusate Sodium 100 mg 11/21/18 14:00 11/22/18 06:38 Colace - PO 100 mg TID [facility] Administration Enoxaparin Sodium 100 mg 11/21/18 11:00 11/21/18 21:54 Lovenox - SQ 100 mg BID [facility] Administration Febuxostat 40 mg 11/21/18 10:00 11/21/18 11:36 Uloric - PO 40 mg DAILY [facility] Administration Ferrous Sulfate 325 mg 11/21/18 10:00 11/21/18 09:35 Feosol - PO 325 mg DAILY [facility] Administration Folic Acid 1 mg 11/21/18 10:00 11/21/18 09:35 Folic Acid - PO 1 mg DAILY [facility] Administration Furosemide 40 mg 11/21/18 10:00 11/21/18 09:35 Lasix - PO 40 mg DAILY [facility] Administration Gabapentin 300 mg 11/20/18 18:00 11/21/18 21:55 Neurontin - PO 300 mg QID [facility] Administration Methocarbamol 750 mg 11/20/18 18:57 Robaxin - PO Q12H PRN MUSCLE SPASMS Metoprolol Succinate 50 mg 11/21/18 10:00 11/21/18 09:36 Toprol Xl - PO 50 mg DAILY [facility] Administration Montelukast Sodium 10 mg 11/20/18 22:00 11/21/18 21:55 Singulair - PO 10 mg HS [facility] Administration Non-Formulary Medication 145 mcg 11/21/18 10:00 Linaclotide [Linzess] PO DAILY [facility] Non-Formulary Medication 25 mg 11/21/18 07:00 Naloxegol Oxalate [Movantik] PO AM [facility] Non-Formulary Medication 10 mg 11/21/18 10:00 Omeprazole Magnesium [Prilosec] PO DAILY [facility] Nortriptyline HCl 10 mg 11/21/18 10:00 11/21/18 11:36 Pamelor - PO 10 mg DAILY [facility] Administration Oxycodone HCl 10 mg 11/20/18 15:50 Roxicodone - PO Q6H PRN PAIN LEVEL 6-10 Oxycodone HCl 10 mg 11/20/18 22:00 11/21/18 21:55 Oxycontin - PO 10 mg BID [facility] Administration Tamsulosin HCl 0.4 mg 11/21/18 10:00 11/21/18 09:36 Flomax - PO 0.4 mg DAILY [facility] Administration Zolpidem Tartrate 5 mg 11/21/18 22:09 11/21/18 23:25 Ambien - PO 5 mg HS PRN Administration INSOMNIA ASSESSMENT/PLAN: Patient is a 73 year old male with a past medical history of CAD s/p stent 2018 , HTN, HLD, Prostate Ca s/p resection 10 years ago in remission, COPD, CHF, Chronic Back Pain s/p multiple surgeries presenting to ED with complaints of neck pain, neck numbness, numbness in fingers, pain in knees worse over the course of the past 4 months. Pt states that he has also noticed urine incontinence that has gotten worse over the past month. He also states that he feels SOB and has substernal chest pain with exertion. He is still able to ambulate but then he starts to feel short of breath. Has fallen in past secondary to right foot deformity. Card: CAD s/p stents: On asa, lipitor, plavix HLD: on lipitor Cardiac disease/Hypertension. controlled. Continue aspirin, Plavix, Toprol XL, Lipitor CHF. monitor intake and output. does not appear volume overloaded. On lasix. Monitor daily weights. New onset afib. Chest pain. resolved. but still having some dyspnea on exertion. denies shortness of breath at rest. troponins trended up to 0.06, but lower than previous visits. continue to monitor on tele. Seen by Cardiology and now on Lovenox 100mg BID. Chest CTA negative for PE On Toprol. Onc: Prostate cancer, history. in remission : Urinary incontinence. seen by urology. bladder/kidney u/s ordered. Vascular RLE edema and calf tenderness, right foot deformity Negative for DVT Pulm: COPD, not in acute exacerbation. reports to exposure to asbestos in the past. Oxygen levels stable. Duonebs prn Spine: Chronic back pain s/p multiple surgeries, now with back pain, neck numbness, numbness in fingers, knee pain Pain managed with Oxycontin, oxycodone. continue Neurontin, Pamelor. For spine MRI. Seen by pain management and was for a neurostimulator that was scheduled for this week. Falls, multiple reported. Poor ambulatory status/falls at home, likely due to underlying disc disease and right foot deformity Physical therapy Anemia On iron therapy, folic acid, multivitamin daily cbc. fen tolerating PO monitor electrolytes low salt diet prophy lovenox bid Visit type - Emergency Visit Emergency Visit: Yes ED Registration Date: 11/20/18 Care time: The patient presented to the Emergency Department on the above date and was hospitalized for further evaluation of their emergent condition. - New Patient This patient is new to me today: No - Critical Care Critical Care patient: No - Discharge Referral Referred to [facility] No
--- NOTE | 2018-11-22 09:29 | PN ---
Progress Note, Physician History of Present Illness: Pt is a 73yo M with PMH of CAD s/p stent 2018, HTN, HLD, Prostate Ca s/p resection 10 years ago in remission, COPD, CHF, Chronic Back Pain s/p multiple surgeries presenting to ED with complaints of neck pain, neck numbness, numbness in fingers, pain in knees found to be in new onset AF. Pain has been going on for "years" but has gotten worse over the course of the past 4 months. Pt states that he has also noticed urine incontinence that has gotten worse over the past month. He also states that he feels SOB and has substernal chest pain with exertion but is fine at rest. He is still able to ambulate but then he starts to feel short of breath and feels the pain in his knees. He denies recent surgeries, recent injuries, falls, syncope, cough, fevers, chills, bowel incontinence, weakness, headaches, changes in vision. PMD: Veronica Lester Neuro: Gee (has not seen) Neurosurgeon: Reji PMH: see hpi PSH: see hpi Meds: see med rec Social: denies PMH CAD s/p PCI LAD 2007 -Moderate PHTN -Severe Cervical Radiculopathy - Current Medication List Current Medications: Active Medications Acetaminophen (Tylenol -) 650 mg PO Q4H PRN PRN Reason: PAIN LEVEL 1-5 Aspirin (Asa -) 81 mg PO DAILY [facility] Last Admin: 11/21/18 09:36 Dose: 81 mg Atorvastatin Calcium (Lipitor -) 40 mg PO HS [facility] Last Admin: 11/21/18 21:55 Dose: 40 mg Clopidogrel Bisulfate (Plavix -) 75 mg PO DAILY [facility] Last Admin: 11/21/18 09:50 Dose: Not Given Docusate Sodium (Colace -) 100 mg PO TID [facility] Last Admin: 11/22/18 06:38 Dose: 100 mg Enoxaparin Sodium (Lovenox -) 100 mg SQ BID [facility] Last Admin: 11/21/18 21:54 Dose: 100 mg Febuxostat (Uloric -) 40 mg PO DAILY [facility] Last Admin: 11/21/18 11:36 Dose: 40 mg Ferrous Sulfate (Feosol -) 325 mg PO DAILY [facility] Last Admin: 11/21/18 09:35 Dose: 325 mg Folic Acid (Folic Acid -) 1 mg PO DAILY [facility] Last Admin: 11/21/18 09:35 Dose: 1 mg Furosemide (Lasix -) 40 mg PO DAILY [facility] Last Admin: 11/21/18 09:35 Dose: 40 mg Gabapentin (Neurontin -) 300 mg PO QID [facility] Last Admin: 11/21/18 21:55 Dose: 300 mg Methocarbamol (Robaxin -) 750 mg PO Q12H PRN PRN Reason: MUSCLE SPASMS Metoprolol Succinate (Toprol Xl -) 50 mg PO DAILY [facility] Last Admin: 11/21/18 09:36 Dose: 50 mg Montelukast Sodium (Singulair -) 10 mg PO HS [facility] Last Admin: 11/21/18 21:55 Dose: 10 mg Non-Formulary Medication (Linaclotide [Linzess]) 145 mcg PO DAILY [facility] Non-Formulary Medication (Naloxegol Oxalate [Movantik]) 25 mg PO AM [facility] Non-Formulary Medication (Omeprazole Magnesium [Prilosec]) 10 mg PO DAILY [facility] Nortriptyline HCl (Pamelor -) 10 mg PO DAILY [facility] Last Admin: 11/21/18 11:36 Dose: 10 mg Oxycodone HCl (Roxicodone -) 10 mg PO Q6H PRN PRN Reason: PAIN LEVEL 6-10 Oxycodone HCl (Oxycontin -) 10 mg PO BID [facility] Last Admin: 11/21/18 21:55 Dose: 10 mg Tamsulosin HCl (Flomax -) 0.4 mg PO DAILY [facility] Last Admin: 11/21/18 09:36 Dose: 0.4 mg Zolpidem Tartrate (Ambien -) 5 mg PO HS PRN PRN Reason: INSOMNIA Last Admin: 11/21/18 23:25 Dose: 5 mg - Objective Vital Signs: Vital Signs Temperature 98.2 F 11/22/18 06:00 Pulse Rate 79 11/22/18 06:00 Respiratory Rate 20 11/22/18 06:00 Blood Pressure 118/66 11/22/18 06:00 O2 Sat by Pulse Oximetry (%) 100 11/21/18 21:00 Eyes: Yes: WNL, Conjunctiva Clear, EOM Intact HENT: Yes: WNL, Atraumatic, Normocephalic Neck: Yes: WNL, Supple, Trachea Midline Cardiovascular: Yes: Pulse Irregular, S1, S2 Respiratory: Yes: WNL, Regular, CTA Bilaterally Gastrointestinal: Yes: WNL, Normal Bowel Sounds Genitourinary: Yes: WNL Musculoskeletal: Yes: WNL Extremities: Yes: WNL Edema: Yes Edema: RLE: 2+ Integumentary: Yes: WNL Neurological: Yes: WNL, Alert, Oriented ...Motor Strength: WNL Psychiatric: Yes: WNL Labs: CBC, BMP 11/21/18 05:30 11/21/18 05:30 INR, PTT INR 1.15 (0.83-1.09) H 11/20/18 12:45 Problem List - Problems (1) Back pain Code(s): M54.9 - DORSALGIA, UNSPECIFIED Qualifiers: Back pain location: back pain in other location Chronicity: chronic Qualified Code(s): M54.9 - Dorsalgia, unspecified; G89.29 - Other chronic pain (2) Chest pain Code(s): R07.9 - CHEST PAIN, UNSPECIFIED Qualifiers: Chest pain type: unspecified Qualified Code(s): R07.9 - Chest pain, unspecified (3) SOB (shortness of breath) on exertion Code(s): R06.02 - SHORTNESS OF BREATH (4) Acute on chronic diastolic (congestive) heart failure Code(s): I50.33 - ACUTE ON CHRONIC DIASTOLIC (CONGESTIVE) HEART FAILURE (5) Acute renal failure Code(s): N17.9 - ACUTE KIDNEY FAILURE, UNSPECIFIED (6) Altered mental status Code(s): R41.82 - ALTERED MENTAL STATUS, UNSPECIFIED Qualifiers: Altered mental status type: transient alteration of awareness Qualified Code(s): R40.4 - Transient alteration of awareness (7) Anaphylactic reaction Code(s): T78.2XXA - ANAPHYLACTIC SHOCK, UNSPECIFIED, INITIAL ENCOUNTER (8) Anemia Code(s): D64.9 - ANEMIA, UNSPECIFIED (9) Ankle and foot joint derangement Code(s): M24.9 - JOINT DERANGEMENT, UNSPECIFIED (10) Arthritis Code(s): M19.90 - UNSPECIFIED OSTEOARTHRITIS, UNSPECIFIED SITE (11) Autoimmune disease Code(s): D89.89 - OTH DISRD INVOLVING THE IMMUNE MECHANISM, NEC (12) CAD (coronary artery disease) Code(s): I25.10 - ATHSCL HEART DISEASE OF [place] CORONARY ARTERY W/O ANG PCTRS (13) COPD (chronic obstructive pulmonary disease) Code(s): J44.9 - CHRONIC OBSTRUCTIVE PULMONARY DISEASE, UNSPECIFIED (14) Chest pain at rest Code(s): R07.9 - CHEST PAIN, UNSPECIFIED (15) Chronic back pain Code(s): M54.9 - DORSALGIA, UNSPECIFIED; G89.29 - OTHER CHRONIC PAIN Qualifiers: Back pain location: back pain in unspecified location Back pain laterality : midline Qualified Code(s): M54.9 - Dorsalgia, unspecified; G89.29 - Other chronic pain (16) Congestive heart failure Code(s): I50.9 - HEART FAILURE, UNSPECIFIED Qualifiers: Heart failure type: unspecified Heart failure chronicity: acute Qualified Code(s): I50.9 - Heart failure, unspecified (17) Elevated troponin Code(s): R74.8 - ABNORMAL LEVELS OF OTHER SERUM ENZYMES (18) Erectile dysfunction Code(s): N52.9 - MALE ERECTILE DYSFUNCTION, UNSPECIFIED (19) Fe deficiency anemia Code(s): D50.9 - IRON DEFICIENCY ANEMIA, UNSPECIFIED (20) GERD (gastroesophageal reflux disease) Code(s): K21.9 - GASTRO-ESOPHAGEAL REFLUX DISEASE WITHOUT ESOPHAGITIS (21) GI bleed Code(s): K92.2 - GASTROINTESTINAL HEMORRHAGE, UNSPECIFIED (22) HLD (hyperlipidemia) Code(s): E78.5 - HYPERLIPIDEMIA, UNSPECIFIED (23) HTN (hypertension) Code(s): I10 - ESSENTIAL (PRIMARY) HYPERTENSION (24) Hx of heart artery stent Code(s): Z95.5 - PRESENCE OF CORONARY ANGIOPLASTY IMPLANT AND GRAFT (25) Hx of myocardial infarction Code(s): I25.2 - OLD MYOCARDIAL INFARCTION (26) Intractable back pain Code(s): M54.9 - DORSALGIA, UNSPECIFIED (27) Low blood pressure Code(s): I95.9 - HYPOTENSION, UNSPECIFIED (28) Lumbar radiculopathy Code(s): M54.16 - RADICULOPATHY, LUMBAR REGION (29) Numbness and tingling Code(s): R20.0 - ANESTHESIA OF SKIN; R20.2 - PARESTHESIA OF SKIN (30) Prolonged QT interval Code(s): R94.31 - ABNORMAL ELECTROCARDIOGRAM [ECG] [EKG] (31) Prostate CA Code(s): C61 - MALIGNANT NEOPLASM OF PROSTATE (32) S/P lumbar fusion Code(s): Z98.1 - ARTHRODESIS STATUS (33) Sepsis Code(s): A41.9 - SEPSIS, UNSPECIFIED ORGANISM Qualifiers: Sepsis type: sepsis due to unspecified organism Qualified Code(s): A41.9 - Sepsis, unspecified organism (34) Severe mitral regurgitation Code(s): I34.0 - NONRHEUMATIC MITRAL (VALVE) INSUFFICIENCY (35) Syncope Code(s): R55 - SYNCOPE AND COLLAPSE (36) Tachycardia Code(s): R00.0 - TACHYCARDIA, UNSPECIFIED (37) UTI (urinary tract infection) Code(s): N39.0 - URINARY TRACT INFECTION, SITE NOT SPECIFIED Qualifiers: Urinary tract infection type: site unspecified Hematuria presence: with hematuria Qualified Code(s): N39.0 - Urinary tract infection, site not specified (38) Weakness Code(s): R53.1 - WEAKNESS Assessment/Plan Pt is a 73yo M with PMH of CAD s/p stent 2018, HTN, HLD, Prostate Ca s/p resection 10 years ago in remission, COPD, CHF, Chronic Back Pain s/p multiple surgeries presenting to ED with complaints of neck pain, neck numbness, numbness in fingers, pain in knees found to be in new onset AF. 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 Coverage for dr. Gant
[2018-11-22] MEDS: CLOPIDOGREL BISULFATE 75 MG TABLET (FP) PO SCH (09:35)
[2018-11-22] MEDS: FERROUS SO4 325 MG TABLET (FP) PO SCH (09:35)
[2018-11-22] MEDS: oxyCODONE HCL 10 MG SUSTAINED ACTING TABLET PO SCH ×2 (09:36→21:42)
[2018-11-22] MEDS: ENOXAPARIN NA (PORCINE) 100 MG/1 ML DISP.SYRIN SQ SCH ×2 (09:36→21:43)
[2018-11-22] MEDS: TAMSULOSIN HCL 0.4 MG CAP PO SCH (09:36)
[2018-11-22] MEDS: ASPIRIN 81 MG CHEWABLE TABLETS PO SCH (09:36)
[2018-11-22] MEDS: FOLIC ACID 1 MG TABLET (FP) PO SCH (09:36)
[2018-11-22] MEDS: GABAPENTIN 300 MG CAPSULE (FP) PO SCH ×4 (09:36→22:36)
[2018-11-22] MEDS: FUROSEMIDE 40 MG TABLET (FP) PO SCH (09:36)
[2018-11-22] MEDS: FEBUXOSTAT 40 MG TAB PO SCH (09:36)
[2018-11-22] MEDS: NORTRIPTYLINE HCL 10 MG CAPSULE PO SCH (09:37)
[2018-11-22 11:04] LABS: BASO % 0.5 % (0-2.0); EOS % 6.3 % (0-4.5); HEMATOCRIT 29.7 % (35.4-49); LYMPH % 22.5 % (8-40); MCH 35.2 pg (25.7-33.7); MCHC 33.7 g/dl (32.0-35.9); MEAN CELL VOLUME 104.3 fl (80-96); MEAN PLT VOLUME 6.8 fl (7.5-11.1); MONO % 13.1 % (3.8-10.2); NEUT % 57.6 % (42.8-82.8); PLATELET COUNT 379 K/MM3 (134-434); RBC 2.84 M/mm3 (4.00-5.60); RDW 13.9 % (11.9-15.9); WHITE BLOOD COUNT 6.2 K/mm3 (4.0-10.0)
[2018-11-22 11:18] LABS: ALBUMIN 3.1 g/dl (3.4-5.0); ALK PHOS 79 U/L (45-117); ANION GAP 7 MMOL/L (8-16); BILIRUBIN,TOTAL 0.6 mg/dL (0.2-1); BLOOD UREA NITROGEN 20 mg/dL (7-18); CALCIUM 8.8 mg/dL (8.5-10.1); CHLORIDE 109 mmol/L (98-107); CO2 24 mmol/L (21-32); CREATININE 0.8 mg/dL (0.55-1.3); GLUCOSE,RANDOM 101 mg/dL (74-106); POTASSIUM 4.3 mmol/L (3.5-5.1); SGOT/AST 17 U/L (15-37); SGPT/ALT 23 U/L (13-61); SODIUM 141 mmol/L (136-145); TOT PROT 5.5 g/dl (6.4-8.2)
[2018-11-22] MEDS: MONTELUKAST NA 10 MG TABLET PO SCH (21:42)
[2018-11-22] MEDS: ATORVASTATIN CA 40 MG TABLET (FP) PO SCH (21:42)
[2018-11-22] MEDS: ZOLPIDEM TARTRATE 5 MG TABLET PO PRN (22:34)
--- NOTE | 2018-11-22 23:47 | PN ---
Progress Note (short form) - Note Progress Note: Patient continues to have difficulties with numbness and tingling in his hands with loss of fine motor skills and dropping things. Gait is unsteady and patient has been having recent urinary incontinence. CT Cervical demonstrates hardware positioning with ACDF constructs at C23 and C56 and posterior segmental instrumentation from C2-C7 with pars/lateral mass screws. Fusion appears reasonably solid, however, dorsal decompression is primarily between C3-C6. MRI Cervical from October 2017 suggests rostral and caudal compression of the spinal cord. Given the progressive Cervical spondylotic myelopathy, revision of his Cervical construct may be warranted. I had a long discussion with the patient concerning the risks, benefits and alternatives to revision posterior cervical decompression and stabilization. I described focal procedures as well as those which would address multiple levels. I discussed anterior, posterior and combined approaches. I feel that the best course of action would be a complete decompression and stabilization performed in one sitting. I described a planned treatment with posterior reoperative exposure of C2-7 with Laminectomies (partially reoperative), Removal of hardware, exploration of spinal fusion, presybeterian of lordosis, and C2-T1 pars/lateral mass/pedicle screw instrumentation with possible C7 & T1 osteotomies. I explained that the risks included, but were not limited to: , coma, paralysis, bleeding, infection, CSF leakage possibly requiring spinal drainage or additional surgery, instrumentation migration/malfunction/malposition and failure to improve. I offered the patientthe option of seeking another opinion or another surgeon. All questions were answered. Informed consent was obtained. The patient verbalizes an understanding of this information and asked intelligent questions. He asks that we proceed with scheduling surgery as soon as possible. I explained that rostral extension of his Lumbar construct will likely be required as well. - MRI Cervical should be obtained sooner rather than later to confirm levels of treatment. - Surgery planned for Saturday, November 24, 2018 - GI/DVT Prophylaxis - NPO p MN on Friday night with Hibiclens shampoo/shower
[2018-11-23] MEDS: DOCUSATE SODIUM 100 MG CAPSULE (FP) PO SCH ×3 (05:59→21:12)
[2018-11-23 06:18] LABS: BASO % 0.6 % (0-2.0); EOS % 6.3 % (0-4.5); HEMATOCRIT 27.1 % (35.4-49); HEMOGLOBIN 9.3 GM/dL (11.7-16.9); LYMPH % 31.2 % (8-40); MCH 35.4 pg (25.7-33.7); MCHC 34.2 g/dl (32.0-35.9); MEAN CELL VOLUME 103.5 fl (80-96); MEAN PLT VOLUME 6.9 fl (7.5-11.1); MONO % 12.5 % (3.8-10.2); NEUT % 49.4 % (42.8-82.8); PLATELET COUNT 371 K/MM3 (134-434); RBC 2.62 M/mm3 (4.00-5.60); RDW 13.9 % (11.9-15.9); WHITE BLOOD COUNT 6.8 K/mm3 (4.0-10.0)
[2018-11-23 06:46] LABS: ALBUMIN 2.8 g/dl (3.4-5.0); ALK PHOS 71 U/L (45-117); ANION GAP 5 MMOL/L (8-16); BILIRUBIN,TOTAL 0.3 mg/dL (0.2-1); BLOOD UREA NITROGEN 21 mg/dL (7-18); CALCIUM 8.5 mg/dL (8.5-10.1); CHLORIDE 109 mmol/L (98-107); CO2 29 mmol/L (21-32); CREATININE 0.7 mg/dL (0.55-1.3); GLUCOSE,RANDOM 80 mg/dL (74-106); MAGNESIUM 2.1 mg/dL (1.8-2.4); POTASSIUM 4.2 mmol/L (3.5-5.1); SGOT/AST 15 U/L (15-37); SGPT/ALT 19 U/L (13-61); SODIUM 142 mmol/L (136-145)
--- NOTE | 2018-11-23 09:25 | PN ---
Progress Note, Physician Chief Complaint: Seen, examined, chart reviewed - Current Medication List Current Medications: Active Medications Acetaminophen (Tylenol -) 650 mg PO Q4H PRN PRN Reason: PAIN LEVEL 1-5 Aspirin (Asa -) 81 mg PO DAILY [facility] Last Admin: 11/22/18 09:36 Dose: 81 mg Atorvastatin Calcium (Lipitor -) 40 mg PO HS [facility] Last Admin: 11/22/18 21:42 Dose: 40 mg Clopidogrel Bisulfate (Plavix -) 75 mg PO DAILY [facility] Last Admin: 11/22/18 09:35 Dose: 75 mg Docusate Sodium (Colace -) 100 mg PO TID [facility] Last Admin: 11/23/18 05:59 Dose: 100 mg Enoxaparin Sodium (Lovenox -) 100 mg SQ BID [facility] Last Admin: 11/22/18 21:43 Dose: 100 mg Febuxostat (Uloric -) 40 mg PO DAILY [facility] Last Admin: 11/22/18 09:36 Dose: 40 mg Ferrous Sulfate (Feosol -) 325 mg PO DAILY [facility] Last Admin: 11/22/18 09:35 Dose: 325 mg Folic Acid (Folic Acid -) 1 mg PO DAILY [facility] Last Admin: 11/22/18 09:36 Dose: 1 mg Furosemide (Lasix -) 40 mg PO DAILY [facility] Last Admin: 11/22/18 09:36 Dose: 40 mg Gabapentin (Neurontin -) 300 mg PO QID [facility] Last Admin: 11/22/18 22:36 Dose: 300 mg Methocarbamol (Robaxin -) 750 mg PO Q12H PRN PRN Reason: MUSCLE SPASMS Metoprolol Succinate (Toprol Xl -) 50 mg PO DAILY [facility] Last Admin: 11/22/18 09:36 Dose: 50 mg Montelukast Sodium (Singulair -) 10 mg PO HS [facility] Last Admin: 11/22/18 21:42 Dose: 10 mg Non-Formulary Medication (Linaclotide [Linzess]) 145 mcg PO DAILY [facility] Non-Formulary Medication (Naloxegol Oxalate [Movantik]) 25 mg PO AM [facility] Non-Formulary Medication (Omeprazole Magnesium [Prilosec]) 10 mg PO DAILY [facility] Nortriptyline HCl (Pamelor -) 10 mg PO DAILY [facility] Last Admin: 11/22/18 09:37 Dose: 10 mg Oxycodone HCl (Roxicodone -) 10 mg PO Q6H PRN PRN Reason: PAIN LEVEL 6-10 Oxycodone HCl (Oxycontin -) 10 mg PO BID [facility] Last Admin: 11/22/18 21:42 Dose: 10 mg Tamsulosin HCl (Flomax -) 0.4 mg PO DAILY [facility] Last Admin: 11/22/18 09:36 Dose: 0.4 mg Zolpidem Tartrate (Ambien -) 5 mg PO HS PRN PRN Reason: INSOMNIA Last Admin: 11/22/18 22:34 Dose: 5 mg - Objective Vital Signs: Vital Signs Temperature 97.6 F 11/23/18 05:31 Pulse Rate 75 11/23/18 05:31 Respiratory Rate 20 11/23/18 05:31 Blood Pressure 111/62 11/23/18 05:31 O2 Sat by Pulse Oximetry (%) 100 11/22/18 20:08 Constitutional: Yes: No Distress Eyes: Yes: Conjunctiva Clear Cardiovascular: Yes: Pulse Irregular Respiratory: Yes: CTA Bilaterally (no wheezing or rales) Gastrointestinal: Yes: Soft Edema: Yes Neurological: Yes: Alert, Oriented ...Motor Strength: WNL Labs: CBC, BMP 11/23/18 05:30 11/23/18 05:30 INR, PTT INR 1.15 (0.83-1.09) H 11/20/18 12:45 - ....Imaging EKG: Image Reviewed (Controlled AF) Assessment/Plan IMP: AF, new onset Acute on chronic diastolic CHF CAD s/p PCI Atypical CP REC: 1. Echo 2. Tele 3. Continue AC, will switch to NOAC 4. IV Lasix 5. Lexiscan MIBI in AM 6. Hold surgery until medically optimized and ischemic evaluation repeated
[2018-11-23] MEDS: NORTRIPTYLINE HCL 10 MG CAPSULE PO SCH (09:40)
[2018-11-23] MEDS: FUROSEMIDE 40 MG/4 ML INJECTABLE VIAL IVPUSH SCH (09:48)
[2018-11-23] MEDS: CLOPIDOGREL BISULFATE 75 MG TABLET (FP) PO SCH (09:48)
[2018-11-23] MEDS: oxyCODONE HCL 10 MG SUSTAINED ACTING TABLET PO SCH ×2 (09:49→21:12)
[2018-11-23] MEDS: FERROUS SO4 325 MG TABLET (FP) PO SCH (09:49)
[2018-11-23] MEDS: GABAPENTIN 300 MG CAPSULE (FP) PO SCH ×4 (09:49→21:12)
[2018-11-23] MEDS: TAMSULOSIN HCL 0.4 MG CAP PO SCH (09:49)
[2018-11-23] MEDS: FOLIC ACID 1 MG TABLET (FP) PO SCH (09:50)
[2018-11-23] MEDS: APIXABAN 5 MG TABLET PO SCH ×2 (09:50→21:11)
[2018-11-23] MEDS ORDERED: PT OWN MED DRAWER 7, Y5N ONE (10:00)
[2018-11-23] MEDS ORDERED: REGADENOSON 0.4 MG/5 ML PRE-FILLED SYRINGE IVPUSH ONE ×2 (10:00→10:24)
[2018-11-23] MEDS: FEBUXOSTAT 40 MG TAB PO SCH (10:08)
--- NOTE | 2018-11-23 20:11 | PN ---
Progress Note (short form) - Note Progress Note: Patient remains Neurologically stable. Although he would benefit from Cervical and Lumbar revision surgeries, these are semi-elective given the new onset A- fib and potential for ischemic cardiac disease. Case discussed with Dr. Gant and we agree that Cardiac evaluation/optimization would be prudent prior to proceeding with surgery. Given potential deleterious consequences of multiple windows off anticoagulation, it may be advisable to perform both procedures at either the same sitting or in relatively rapid succession to avoid the need for two periods off anticoagulation. I discussed this with the patient in detail and he agrees. I will tentatively plan to perform the posterior Cervical revision on Saturday, December 08, 2018 and the Lumbar Revision either at the same time or soon thereafter pending completion of the Cardiac testing.
[2018-11-23] MEDS: ATORVASTATIN CA 40 MG TABLET (FP) PO SCH (21:11)
[2018-11-23] MEDS: MONTELUKAST NA 10 MG TABLET PO SCH (21:12)
--- NOTE | 2018-11-23 21:13 | PN ---
Physical Exam: SUBJECTIVE: Patient seen and examined, no chest pain or shortness of breath. OBJECTIVE: Vital Signs Period Temp Pulse Resp BP Sys/Dyson Pulse Ox Last 24 Hr 97.6 F-98.4 F 68-80 18-20 97-118/59-74 99-100 GENERAL: The patient is awake, alert, and fully oriented, in no acute distress. HEAD: Normal with no signs of trauma. EYES: PERRL, extraocular movements intact, sclera anicteric, conjunctiva clear. No ptosis. ENT: Ears normal, nares patent, oropharynx clear without exudates, moist mucous membranes. NECK: Trachea midline, full range of motion, supple. LUNGS: Breath sounds equal, mild congestion bilaterally HEART: irregular ABDOMEN: Soft, nontender, nondistended, normoactive bowel sounds EXTREMITIES: +2 edema right leg, ankle with edema and deformity of right foot- wears boot at home for balance. NEUROLOGICAL: still having numbness of upper extremities. speech clear. facial symmetry PSYCH: Normal mood, normal affect. SKIN: Warm, dry, normal turgor, no rashes or lesions noted Laboratory Results - last 24 hr 11/23/18 11/23/18 05:30 05:30 WBC 6.8 RBC 2.62 L Hgb 9.3 L Hct 27.1 L MCV 103.5 H MCH 35.4 H MCHC 34.2 RDW 13.9 Plt Count 371 MPV 6.9 L Absolute Neuts (auto) 3.3 Neutrophils % 49.4 Lymphocytes % 31.2 D Monocytes % 12.5 H Eosinophils % 6.3 H Basophils % 0.6 Nucleated RBC % 0 Sodium 142 Potassium 4.2 Chloride 109 H Carbon Dioxide 29 Anion Gap 5 L BUN 21 H Creatinine 0.7 Creat Clearance w eGFR > 60 Random Glucose 80 Calcium 8.5 Magnesium 2.1 Total Bilirubin 0.3 AST 15 ALT 19 Alkaline Phosphatase 71 Total Protein 5.0 L Albumin 2.8 L Active Medications Generic Name Dose Route Start Last Admin Trade Name Freq PRN Reason Stop Dose Admin Acetaminophen 650 mg 11/20/18 15:51 Tylenol - PO Q4H PRN PAIN LEVEL 1-5 Apixaban 5 mg 11/23/18 10:00 11/23/18 21:11 Eliquis - PO 5 mg BID [facility] Administration Atorvastatin Calcium 40 mg 11/20/18 22:00 11/23/18 21:11 Lipitor - PO 40 mg HS [facility] Administration Clopidogrel Bisulfate 75 mg 11/21/18 10:00 11/23/18 09:48 Plavix - PO 75 mg DAILY [facility] Administration Docusate Sodium 100 mg 11/21/18 14:00 11/23/18 21:12 Colace - PO 100 mg TID [facility] Administration Febuxostat 40 mg 11/21/18 10:00 11/23/18 10:08 Uloric - PO 40 mg DAILY [facility] Administration Ferrous Sulfate 325 mg 11/21/18 10:00 11/23/18 09:49 Feosol - PO 325 mg DAILY [facility] Administration Folic Acid 1 mg 11/21/18 10:00 11/23/18 09:50 Folic Acid - PO 1 mg DAILY [facility] Administration Furosemide 40 mg 11/23/18 10:00 11/23/18 09:48 Lasix Injection - IVPUSH 40 mg DAILY [facility] Administration Gabapentin 300 mg 11/20/18 18:00 11/23/18 21:12 Neurontin - PO 300 mg QID [facility] Administration Methocarbamol 750 mg 11/20/18 18:57 Robaxin - PO Q12H PRN MUSCLE SPASMS Metoprolol Succinate 50 mg 11/21/18 10:00 11/23/18 09:49 Toprol Xl - PO 50 mg DAILY [facility] Administration Montelukast Sodium 10 mg 11/20/18 22:00 11/23/18 21:12 Singulair - PO 10 mg HS [facility] Administration Non-Formulary Medication 145 mcg 11/21/18 10:00 Linaclotide [Linzess] PO DAILY [facility] Non-Formulary Medication 25 mg 11/21/18 07:00 Naloxegol Oxalate [Movantik] PO AM [facility] Non-Formulary Medication 10 mg 11/21/18 10:00 Omeprazole Magnesium [Prilosec] PO DAILY [facility] Nortriptyline HCl 10 mg 11/21/18 10:00 11/23/18 09:40 Pamelor - PO 10 mg DAILY [facility] Administration Oxycodone HCl 10 mg 11/20/18 15:50 Roxicodone - PO Q6H PRN PAIN LEVEL 6-10 Oxycodone HCl 10 mg 11/20/18 22:00 11/23/18 21:12 Oxycontin - PO 10 mg BID [facility] Administration Tamsulosin HCl 0.4 mg 11/21/18 10:00 11/23/18 09:49 Flomax - PO 0.4 mg DAILY [facility] Administration Zolpidem Tartrate 5 mg 11/21/18 22:09 11/22/18 22:34 Ambien - PO 5 mg HS PRN Administration INSOMNIA ASSESSMENT/PLAN: Patient is a 73 year old male with a past medical history of CAD s/p stent 2018 , HTN, HLD, Prostate Ca s/p resection 10 years ago in remission, COPD, CHF, Chronic Back Pain s/p multiple surgeries presenting to ED with complaints of neck pain, neck numbness, numbness in fingers, pain in knees worse over the course of the past 4 months. Pt states that he has also noticed urine incontinence that has gotten worse over the past month. He also states that he feels SOB and has substernal chest pain with exertion. He is still able to ambulate but then he starts to feel short of breath. Has fallen in past secondary to right foot deformity. Card: CAD s/p stents: On asa, lipitor, plavix HLD: on lipitor Cardiac disease/Hypertension: controlled. Continue aspirin, Plavix, Toprol XL, Lipitor CHF: monitor intake and output. does not appear volume overloaded. On lasix. Monitor daily weights. New onset afib. Started on eliquis 5mg bid. On toprol xl Chest pain. resolved. but still having some dyspnea on exertion. denies shortness of breath at rest. troponins trended up to 0.06, but lower than previous visits. continue to monitor on tele. Seen by Cardiology and now on Eliquis 5mg bid. Chest CTA negative for PE. On Toprol. Onc: Prostate cancer, history. in remission : Urinary incontinence. seen by urology. bladder/kidney u/s ordered and reviewed. no acute pathology. Vascular RLE edema and calf tenderness, right foot deformity. Negative for DVT Pulm: COPD, not in acute exacerbation. reports to exposure to asbestos in the past. Oxygen levels stable. Duonebs prn Spine: Chronic back pain s/p multiple surgeries, now with back pain, neck numbness, numbness in fingers, knee pain Pain managed with Oxycontin, oxycodone. continue Neurontin, Pamelor. For spine MRI once cardiology clears. Falls, multiple reported. Poor ambulatory status/falls at home, likely due to underlying disc disease and right foot deformity. Physical therapy. Anemia On iron therapy, folic acid, multivitamin daily cbc. fen tolerating PO monitor electrolytes low salt diet prophy eliquis 5mg bid. Visit type - Emergency Visit Emergency Visit: Yes ED Registration Date: 11/20/18 Care time: The patient presented to the Emergency Department on the above date and was hospitalized for further evaluation of their emergent condition. - New Patient This patient is new to me today: No - Critical Care Critical Care patient: No - Discharge Referral Referred to [facility] No
[2018-11-23] MEDS: ZOLPIDEM TARTRATE 5 MG TABLET PO PRN (22:30)
[2018-11-24] MEDS: DOCUSATE SODIUM 100 MG CAPSULE (FP) PO SCH ×2 (06:07→13:53)
[2018-11-24 07:13] LABS: BASO % 0.7 % (0-2.0); EOS % 6.1 % (0-4.5); HEMATOCRIT 29.7 % (35.4-49); HEMOGLOBIN 10.1 GM/dL (11.7-16.9); MCH 35.3 pg (25.7-33.7); MCHC 34.1 g/dl (32.0-35.9); MEAN CELL VOLUME 103.5 fl (80-96); MEAN PLT VOLUME 6.9 fl (7.5-11.1); MONO % 12.3 % (3.8-10.2); NEUT % 50.9 % (42.8-82.8); PLATELET COUNT 397 K/MM3 (134-434); RBC 2.87 M/mm3 (4.00-5.60); RDW 13.9 % (11.9-15.9); WHITE BLOOD COUNT 6.1 K/mm3 (4.0-10.0)
[2018-11-24 07:53] LABS: ALK PHOS 77 U/L (45-117); ANION GAP 4 MMOL/L (8-16); BILIRUBIN,TOTAL 0.7 mg/dL (0.2-1); BLOOD UREA NITROGEN 17 mg/dL (7-18); CALCIUM 8.4 mg/dL (8.5-10.1); CHLORIDE 106 mmol/L (98-107); CO2 30 mmol/L (21-32); CREATININE 0.7 mg/dL (0.55-1.3); GLUCOSE,RANDOM 81 mg/dL (74-106); MAGNESIUM 1.8 mg/dL (1.8-2.4); POTASSIUM 4.3 mmol/L (3.5-5.1); SGOT/AST 15 U/L (15-37); SGPT/ALT 20 U/L (13-61); SODIUM 140 mmol/L (136-145); TOT PROT 5.4 g/dl (6.4-8.2)
[2018-11-24] MEDS: oxyCODONE HCL 10 MG SUSTAINED ACTING TABLET PO SCH (09:00)
--- NOTE | 2018-11-24 09:29 | PN ---
Progress Note, Physician Chief Complaint: seen and examined in cardiology TELE: AF with rare self limited burst to 160s - Current Medication List Current Medications: Active Medications Acetaminophen (Tylenol -) 650 mg PO Q4H PRN PRN Reason: PAIN LEVEL 1-5 Apixaban (Eliquis -) 5 mg PO BID [facility] Last Admin: 11/23/18 21:11 Dose: 5 mg Atorvastatin Calcium (Lipitor -) 40 mg PO HS [facility] Last Admin: 11/23/18 21:11 Dose: 40 mg Clopidogrel Bisulfate (Plavix -) 75 mg PO DAILY [facility] Last Admin: 11/23/18 09:48 Dose: 75 mg Docusate Sodium (Colace -) 100 mg PO TID [facility] Last Admin: 11/24/18 06:07 Dose: Not Given Febuxostat (Uloric -) 40 mg PO DAILY [facility] Last Admin: 11/23/18 10:08 Dose: 40 mg Ferrous Sulfate (Feosol -) 325 mg PO DAILY [facility] Last Admin: 11/23/18 09:49 Dose: 325 mg Folic Acid (Folic Acid -) 1 mg PO DAILY [facility] Last Admin: 11/23/18 09:50 Dose: 1 mg Furosemide (Lasix Injection -) 40 mg IVPUSH DAILY [facility] Last Admin: 11/23/18 09:48 Dose: 40 mg Gabapentin (Neurontin -) 300 mg PO QID [facility] Last Admin: 11/23/18 21:12 Dose: 300 mg Methocarbamol (Robaxin -) 750 mg PO Q12H PRN PRN Reason: MUSCLE SPASMS Metoprolol Succinate (Toprol Xl -) 50 mg PO DAILY [facility] Last Admin: 11/23/18 09:49 Dose: 50 mg Montelukast Sodium (Singulair -) 10 mg PO HS [facility] Last Admin: 11/23/18 21:12 Dose: 10 mg Nortriptyline HCl (Pamelor -) 10 mg PO DAILY [facility] Last Admin: 11/23/18 09:40 Dose: 10 mg Oxycodone HCl (Roxicodone -) 10 mg PO Q6H PRN PRN Reason: PAIN LEVEL 6-10 Oxycodone HCl (Oxycontin -) 10 mg PO BID [facility] Last Admin: 11/24/18 09:00 Dose: 10 mg Pantoprazole Sodium (Protonix -) 20 mg PO DAILY [facility] Tamsulosin HCl (Flomax -) 0.4 mg PO DAILY [facility] Last Admin: 11/23/18 09:49 Dose: 0.4 mg Zolpidem Tartrate (Ambien -) 5 mg PO HS PRN PRN Reason: INSOMNIA Last Admin: 11/23/18 22:30 Dose: 5 mg - Objective Vital Signs: Vital Signs Temperature 98.2 F 11/24/18 05:00 Pulse Rate 81 11/24/18 05:00 Respiratory Rate 20 11/24/18 05:00 Blood Pressure 115/60 11/24/18 05:00 O2 Sat by Pulse Oximetry (%) 99 11/23/18 20:33 Constitutional: Yes: No Distress, Calm Eyes: Yes: Conjunctiva Clear Cardiovascular: Yes: Pulse Irregular Respiratory: Yes: CTA Bilaterally Gastrointestinal: Yes: Soft Edema: Yes Edema: LLE: 1+ (improved), RLE: 1+ (improved.) Neurological: Yes: Alert Labs: CBC, BMP 11/24/18 05:20 11/24/18 05:20 INR, PTT INR 1.15 (0.83-1.09) H 11/20/18 12:45 - ....Imaging EKG: Image Reviewed Assessment/Plan IMP: AF, new onset Acute on chronic diastolic CHF CAD s/p PCI Atypical CP REC: 1. Echo today 2. Tele 3. Continue AC w/ Eliquis 4. IV Lasix 5. Lexiscan MIBI today 6. Hold surgery until medically optimized and ischemic evaluation repeated Will follow
[2018-11-24] MEDS ORDERED: REGADENOSON 0.4 MG/5 ML PRE-FILLED SYRINGE IVPUSH ONE ×2 (09:55→10:00)
[2018-11-24] MEDS ORDERED: PANTOPRAZOLE 20 MG TABLET (FP) PO SCH (10:00)
--- NOTE | 2018-11-24 10:33 | PN ---
Progress Note (short form) - Note Progress Note: Patient is stable Awaiting Cardiac evaluation
[2018-11-24] MEDS: GABAPENTIN 300 MG CAPSULE (FP) PO SCH ×2 (11:57→13:54)
[2018-11-24] MEDS: TAMSULOSIN HCL 0.4 MG CAP PO SCH (11:58)
[2018-11-24] MEDS: FUROSEMIDE 40 MG/4 ML INJECTABLE VIAL IVPUSH SCH (11:58)
[2018-11-24] MEDS: FERROUS SO4 325 MG TABLET (FP) PO SCH (11:59)
[2018-11-24] MEDS: APIXABAN 5 MG TABLET PO SCH (11:59)
[2018-11-24] MEDS: CLOPIDOGREL BISULFATE 75 MG TABLET (FP) PO SCH (12:00)
[2018-11-24] MEDS: FOLIC ACID 1 MG TABLET (FP) PO SCH (12:01)
[2018-11-24] MEDS ORDERED: PT OWN MED DRAWER 7, Y5N ONE ×2 (12:07→13:44)
[2018-11-24] MEDS: NORTRIPTYLINE HCL 10 MG CAPSULE PO SCH (12:09)
[2018-11-24] MEDS: FEBUXOSTAT 40 MG TAB PO SCH (12:30)
--- NOTE | 2018-11-24 13:58 | ECHO ---
Name: RODRIGO TERRAZAS Exam:Adult Echocardiogram Study Date: 11/24/2018 09:03 AM Age: 73 yrs Reason For Study: CHF Height: 74 in Weight: 215 lb BSA: 2.2 m2 MMode/2D Measurements & Calculations IVSd: 1.8 cm Ao root diam: 3.3 cm LVIDd: 4.4 cm LA dimension: 4.4 cm LVIDs: 3.2 cm LVPWd: 1.1 cm EDV(Teich): 90.0 ml LAV(MOD-sp2): 99.5 ml ESV(Teich): 41.0 ml LAV(MOD-sp4): 189.6 ml LAV(MOD-bp): 146.2 ml LAV(MOD-bp) Indexed: 65.2 ml/m2 LAV (MOD-bp): 178.0 ml TAPSE: 2.8 cm Doppler Measurements & Calculations MV E max donny: 96.3 cm/sec Ao V2 max: 129.0 cm/sec MV A max donny: 57.3 cm/sec Ao max P.7 mmHg MV E/A: 1.7 MV dec time: 0.20 sec LV V1 max P.9 mmHg MR max donny: 469.7 cm/sec LV V1 max: 98.7 cm/sec MR max P.3 mmHg TR max donny: 281.7 cm/sec PI end-d donny: 139.5 cm/sec TR max P.0 mmHg Med Peak E' Donny: 9.5 cm/sec Med E/e': 10.1 Lat Peak E' Donny: 12.1 cm/sec Lat E/e': 8.0 Procedure A complete two-dimensional transthoracic echocardiogram was performed (2D, M-mode, Doppler and color flow Doppler). The study was technically adequate with some images being suboptimal in quality. Left Ventricle There is moderate asymmetric left ventricular hypertrophy. Left ventricular systolic function is norm al. Ejection Fraction = 55%. Right Ventricle The right ventricle is normal in size and function. Atria The left atrium is severely dilated. The right atrium is moderately dilated. Mitral Valve There is mild mitral valve thickening. There is moderate mitral regurgitation. Tricuspid Valve The tricuspid valve is normal in structure and function. There is mild tricuspid regurgitation. Right ventricular systolic pressure is elevated at 52 mmhg. Assuming the RA pressure is 20 mmHg. There is m oderate pulmonary hypertension. Aortic Valve The aortic valve is trileaflet. Pulmonic Valve The pulmonic valve is not well visualized. Great Vessels The aortic root is normal size. Pericardium/Pleura There is no pericardial effusion. There is a pleural effusion present. Interpretation Summary There is moderate asymmetric left ventricular hypertrophy. The left atrium is severely dilated. There is moderate mitral regurgitation. There is a pleural effusion present. There is moderate pulmonary hypertension. Left ventricular systolic function is normal. Donell Valentin 11/24/2018 01:57 PM
--- NOTE | 2018-11-24 15:08 | DS ---
Physical Exam: SUBJECTIVE: Patient seen and examined OBJECTIVE: Vital Signs Period Temp Pulse Resp BP Sys/Dyson Pulse Ox Last 24 Hr 97.8 F-98.4 F 68-81 20-20 96-118/59-68 99-99 PHYSICAL EXAM GENERAL: The patient is awake, alert, and fully oriented, in no acute distress. HEAD: Normal with no signs of trauma. EYES: PERRL, extraocular movements intact, sclera anicteric, conjunctiva clear. ENT: Ears normal, nares patent, oropharynx clear without exudates, moist mucous membranes. NECK: Trachea midline, full range of motion, supple. LUNGS: Breath sounds equal, clear to auscultation bilaterally, no wheezes, no crackles, no accessory muscle use. HEART: Regular rate and rhythm, S1, S2 without murmur, rub or gallop. ABDOMEN: Soft, nontender, nondistended, normoactive bowel sounds, no guarding, no rebound, no hepatosplenomegaly, no masses. EXTREMITIES: 2+ pulses, warm, well-perfused, no edema. NEUROLOGICAL: Cranial nerves II through XII grossly intact. Normal speech, gait not observed. PSYCH: Normal mood, normal affect. SKIN: Warm, dry, normal turgor, no rashes or lesions noted. LABS Laboratory Results - last 24 hr 11/24/18 11/24/18 05:20 05:20 WBC 6.1 RBC 2.87 L Hgb 10.1 L Hct 29.7 L MCV 103.5 H MCH 35.3 H MCHC 34.1 RDW 13.9 Plt Count 397 MPV 6.9 L Absolute Neuts (auto) 3.1 Neutrophils % 50.9 Lymphocytes % 30.0 Monocytes % 12.3 H Eosinophils % 6.1 H Basophils % 0.7 Nucleated RBC % 0 Sodium 140 Potassium 4.3 Chloride 106 Carbon Dioxide 30 Anion Gap 4 L BUN 17 Creatinine 0.7 Creat Clearance w eGFR > 60 Random Glucose 81 Calcium 8.4 L Magnesium 1.8 Total Bilirubin 0.7 AST 15 ALT 20 Alkaline Phosphatase 77 Total Protein 5.4 L Albumin 3.0 L HOSPITAL COURSE: Date of Admission:11/20/18 Date of Discharge: 11/24/18 Minutes to complete discharge: 30 Discharge Summary Reason For Visit: SOB/CHEST PAIN Current Active Problems Back pain (Acute) Chest pain (Acute) SOB (shortness of breath) on exertion (Acute) - Instructions Referrals: Leonard Lester MD [Primary Care Provider] - - Home Medications Comprehensive Discharge Medication List: Ambulatory Orders Aspirin [Rachelle Chewable Aspirin] 81 mg PO DAILY 04/03/17 Febuxostat [Uloric -] 40 mg PO DAILY 04/03/17 Gabapentin 300 mg PO QID 04/03/17 Methocarbamol 750 mg PO BID PRN 04/03/17 Montelukast Na [Singulair -] 10 mg PO HS 04/03/17 Omeprazole Magnesium [Prilosec] 10 mg PO DAILY 04/03/17 Oxycodone HCl [Oxycodone HCl ER] 10 mg PO BID 10/28/17 Oxycodone HCl/Acetaminophen [Percocet 10-325 mg Tablet] 1 each PO BID 10/28/17 Clopidogrel Bisulfate [Plavix -] 75 mg PO DAILY #30 tablet 01/12/18 Ferrous Sulfate [Feosol] 325 mg PO DAILY [facility] 01/12/18 Furosemide [Lasix] 40 mg PO DAILY #30 tablet 01/12/18 Metoprolol Succinate [Toprol XL -] 50 mg PO DAILY #30 tab.sr.24h 01/12/18 Atorvastatin Ca [Lipitor] 40 mg PO HS 11/20/18 Folic Acid 1 mg PO DAILY 11/20/18 Linaclotide [Linzess] 145 mcg PO DAILY 11/20/18 Naloxegol Oxalate [Movantik] 25 mg PO ASDIR 11/20/18 Nortriptyline HCl [Pamelor -] 10 mg PO DAILY 11/20/18 Tamsulosin HCl [Flomax] 0.4 mg PO DAILY 11/20/18 Zolpidem Tartrate [Ambien] 10 mg PO HS PRN 11/20/18 Problem List - Problems (1) Back pain Code(s): M54.9 - DORSALGIA, UNSPECIFIED Qualifiers: Back pain location: back pain in other location Chronicity: chronic Qualified Code(s): M54.9 - Dorsalgia, unspecified; G89.29 - Other chronic pain (2) Chest pain Code(s): R07.9 - CHEST PAIN, UNSPECIFIED Qualifiers: Chest pain type: unspecified Qualified Code(s): R07.9 - Chest pain, unspecified (3) HLD (hyperlipidemia) Code(s): E78.5 - HYPERLIPIDEMIA, UNSPECIFIED (4) HTN (hypertension) Code(s): I10 - ESSENTIAL (PRIMARY) HYPERTENSION (5) Hx of myocardial infarction Code(s): I25.2 - OLD MYOCARDIAL INFARCTION (6) Lumbar radiculopathy Code(s): M54.16 - RADICULOPATHY, LUMBAR REGION - Discharge Referral Referred to [facility] No
--- NOTE | 2018-11-24 15:31 | DS ---
Physical Examination Vital Signs: Vital Signs Temperature 98.4 F 11/24/18 14:31 Pulse Rate 71 11/24/18 14:31 Respiratory Rate 20 11/24/18 14:31 Blood Pressure 118/59 L 11/24/18 14:31 O2 Sat by Pulse Oximetry (%) 99 11/24/18 09:00 Constitutional: Yes: No Distress, Calm Eyes: Yes: Conjunctiva Clear, PERRL, Ptosis HENT: Yes: Atraumatic, Normocephalic Neck: Yes: Supple, Trachea Midline Cardiovascular: Yes: Regular Rate and Rhythm, Murmur Respiratory: Yes: Regular, Cough, Rhonchi Gastrointestinal: Yes: Normal Bowel Sounds, Soft, Abdomen, Obese ...Rectal Exam: Yes: Deferred Musculoskeletal: Yes: Joint Stiffness, Muscle Weakness Extremities: Yes: Cool Edema: Yes Edema: LLE: 1+, RLE: 2+ Peripheral Pulses: Left Radial: 2+, Right Radial: 2+ Integumentary: Yes: Venous Stasis Changes Neurological: Yes: Alert, Oriented ...Motor Strength: LUE, RUE Psychiatric: Yes: Alert, Oriented Labs: CBC, BMP 11/24/18 05:20 11/24/18 05:20 Discharge Summary Reason For Visit: SOB/CHEST PAIN Current Active Problems Back pain (Acute) Chest pain (Acute) SOB (shortness of breath) on exertion (Acute) Other Procedures: 0920-9990 MRI/CERVICAL SPINE MRI W/O CONTR. Progressive cervical spondylytic myelopathy. Findings. No abnormality seen at the pontomedullary junction region.Normal signal intensity of the visualized brainstem, cerebellum. No evidence of tonsillar ectopia Straightening of the cervical spine is seen on the sagittal images. Status post anterior cervical fusion at C2-C3, C5-C6. Status post laminectomy at C3, C4, C5-C6. Status post posterior fusion C2-C7. C6-C7. Broad-based disc protrusion encroaching on the ventral subarachnoid space. C7-T1. Thickened ligamentum flavum encroaching on the dorsal subarachnoid space. No evidence of abnormal signal intensity within the spinal cord. Limited evaluation of the neural foramina. No disc displacement is seen in the upper thoracic. Symmetrical small effusions are seen in the atlantooccipital joints. Flow-void is observed in the vertebral, carotid arteries. No evidence of prevertebral soft tissue swelling. Impression. Chronic disc protrusion encroaching on ventral subarachnoid space at C6-C7. C7-T1. Thickened ligamentum flavum encroaching of the ventral subarachnoid space. Chronic postop changes .Normal signal intensity the spinal cord No interval change in comparison to MRI of the cervical spine November 01, 2017 11/24/18 1325. Lexiscan 11/24/2018. FINAL CONCLUSION: EXERCISE RESULTS: No ischemic changes with stress. Occasional PVCs. No significant arrhythmias. NUCLEAR RESULTS: The left ventricle is dilated at baseline. Normal perfusion. There is no evidence of vasodilator induced myocardial ischemia. LVEF 58%. C- spine CT 11/22/2018. Impression: Status post anterior and posterior fusion, as described above without interval change since prior. MRI of the cervical spine dated 11/01/2017. The height and alignment of the vertebral bodies appear unremarkable without evidence of a fracture or subluxation. No prevertebral soft tissue swelling is identified. [id number] size calcified plaques at the right and to a lesser extent left common carotid bifurcation. Reported By: Cecil Harvey MD 11/22/18 1417. REnal sono 11/24/2018. Impression: Simple right and left renal cyst. Visualized portion of the liver appears unremarkable. Right pleural effusion. Partially distended urinary bladder limiting evaluation of its wall. Bilateral ureteral jets were not visualized. Patient could not void to calculate postvoid urine residue. Prostate gland was not visualized/evaluated. Reported By: Cecil Harvey MD 11/22/18 1257 Hospital Course: 73 year old man who comes to the ED today complaining of neck pain with numbness of both hands and feet. This is a chronic problem but he says it has been worse over the last 2 weeks. He has pain in his neck that radiates into both arms. He notes the symptoms are worse when he strains to move his bowels because of constipation. He has a history of cervical and lumbar disc disease for which he has undergone multiple surgeries. He says that after his last neck surgery, he developed his current neurological symptoms. He also reports incontinence of urine which began after a urologic procedure about 2 months ago. He has not been falling. He is able to ambulate. During the last 2 weeks, he has also been experiencing chest pain both at rest and with exertion, and he notes shortness of breath with exertion. He denies orthopnea, PND, leg edema ( he has chronic right ankle swelling from prior trauma and surgery). Hospital course: Pain managed with Oxycontin, oxycodone. continue Neurontin, Pamelor. Neurology consult. RLE edema and calf tenderness, RLE: Negative for DVT As per neuro: tentative plan is to perform the posterior Cervical revision on Friday, December 08, 2018 and the Lumbar Revision either at the same time or soon thereafter. New onset afib. pt started on eliquis, also on toprol XL Chest pain. resolved. but still having some dyspnea on exertion. denies shortness of breath at rest. troponins trended up to 0.06, but lower than previous visits. continue to monitor on tele. Seen by Cardiology and now on Lovenox 100mg BID. Chest CTA negative for PE. On 11/24 pt underwent Lexiscan MIBI which demonstrated no ischemic changes with stress, Occ PVCs, no significant arrhythmias. ECHO 11/24: moderate Asymmetric LVH. LA is severely dilated, mod MR, moderate pHTN, LV systolic function is normal and there is pleural effusion present. Condition: Guarded - Instructions Diet, Activity, Other Instructions: patient should follow up with auto body repair technician after discharge. Bleeding precautions STOP ASPIRIN Referrals: Leonard Lester MD [Primary Care Provider] - Disposition: HOME - Home Medications Comprehensive Discharge Medication List: Ambulatory Orders Febuxostat [Uloric -] 40 mg PO DAILY 04/03/17 Gabapentin 300 mg PO QID 04/03/17 Methocarbamol 750 mg PO BID PRN 04/03/17 Montelukast Na [Singulair -] 10 mg PO HS 04/03/17 Omeprazole Magnesium [Prilosec] 10 mg PO DAILY 04/03/17 Oxycodone HCl [Oxycodone HCl ER] 10 mg PO BID 10/28/17 Oxycodone HCl/Acetaminophen [Percocet 10-325 mg Tablet] 1 each PO BID 10/28/17 Clopidogrel Bisulfate [Plavix -] 75 mg PO DAILY #30 tablet 01/12/18 Ferrous Sulfate [Feosol] 325 mg PO DAILY ud 01/12/18 Furosemide [Lasix] 40 mg PO DAILY #30 tablet 01/12/18 Metoprolol Succinate [Toprol XL -] 50 mg PO DAILY #30 tab.sr.24h 01/12/18 Atorvastatin Ca [Lipitor] 40 mg PO HS 11/20/18 Folic Acid 1 mg PO DAILY 11/20/18 Linaclotide [Linzess] 145 mcg PO DAILY 11/20/18 Naloxegol Oxalate [Movantik] 25 mg PO ASDIR 11/20/18 Nortriptyline HCl [Pamelor -] 10 mg PO DAILY 11/20/18 Tamsulosin HCl [Flomax] 0.4 mg PO DAILY 11/20/18 Zolpidem Tartrate [Ambien] 10 mg PO HS PRN 11/20/18 Eliquis 5mg 1 tab PO BID This patient is new to me today: Yes Date on this admission: 11/24/18 Emergency Visit: Yes ED Registration Date: 11/20/18 Care time: The patient presented to the Emergency Department on the above date and was hospitalized for further evaluation of their emergent condition. Critical Care patient: No - Discharge Referral Referred to [facility] Med P.C.: No
[2018-11-24 17:43] VITALS: BP 142/83; PULSE 93; TEMP 98
== END 2018-11-24 17:43 | disposition home or self-care (01) | DRG 551 ==
LOC: JER 10:52 → JERBED 13:58 → OBSVTOIN 19:09 → J4W 19:46
PROVIDERS: ADMIT Internal Medicine; ATTEND Nurse Practitioner Family
DX: M47.12 Other spondylosis with myelopathy, cervical region (principal); I50.33 Acute on chronic diastolic (congestive) heart failure; I48.91 Unspecified atrial fibrillation; I25.10 Atherosclerotic heart disease of native coronary artery without angina pectoris; Z98.61 Coronary angioplasty status; E78.5 Hyperlipidemia, unspecified; J44.9 Chronic obstructive pulmonary disease, unspecified; R32 Unspecified urinary incontinence; K21.9 Gastro-esophageal reflux disease without esophagitis; R07.89 Other chest pain; D64.9 Anemia, unspecified
CPT/HCPCS: 36415; 71045-TC-FY; 71275-TC; 72125-TC; 72141-TC; 76775-TC; 76856-TC; 78452-TC; 80048; 80053; 81003; 82550; 83735; 83880; 84484; 85025; 85027; 85610; 93005; 93010; 93017; 93306-TC; 93971-TC; 99282-25; A9502; G0378; J2785

== ENCOUNTER 2018-12-18 08:08 | Inpatient (IN) | payer OTHER, BC ==
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
--- NOTE | 2018-12-18 09:09 | PDOC ---
Attending Attestation - Resident Resident Name: Hima Roe - ED Attending Attestation I have performed the following: I have examined & evaluated the patient, The case was reviewed & discussed with the resident, I agree w/resident's findings & plan, Exceptions are as noted - HPI HPI: 12/18/18 09:00 agree with resident hpi - Physicial Exam PE: 12/18/18 09:00 agree with resident exam - Medical Decision Making 12/18/18 09:00 73yo M with MMP presents to the ED for admission for cervical spine surgery with Dr. Taylor. BROOKLYN Zavala from Dr. Taylor's service is at the bedside at this time. Pt to be admitted for anticoagulation reversal and eventual surgery. No new neurological deficits at this time. Pt admitted to Dr. Taylor. Case discussed in detail with admitting physician including history, physical exam and ancillary studies. Admitting physician has assumed care for the patient, will follow all pending diagnostics and will complete the evaluation and treatment.
--- NOTE | 2018-12-18 09:17 | HP ---
CHIEF COMPLAINT: Nck pain/ UE/LE numbness PCP: Dr Lester HISTORY OF PRESENT ILLNESS: 73 y/o M w/ PMHx htn, hld, CAD s/p PCI with stent to LAD 2018, chronic diastolic heart failure, pulmonary htn, PSVT, anemia, h/o Prostate cancer, s/p prostatectomy, GERD, COPD, RA, peripheral neuropathy, Afib on Eliquis, chronic neck and back pain on pain regimen (Oxy CR 10mg BID, oxy IR 10mg BID), now presents to ED for admission for medical optimization/ anticoagulation for planned neurosurgery. Pt reports h/o 4-5 back surgeries (cervical and lumbar) over the course of the past 10 years. Reports significant worsening of his sxs over the past 6months. Pt endorses weakness and worsening neuropathy in b/l UE/LE. Currently ambulates with a cane, is only able to walk a few feet at a time. Denies any bowel incontinence, reports urinary leakage since his last prostate intervention a few years ago. Denies cp/sob, n/v/d, calf pain/edema, h/o dvt/ pe. At baseline pt lives home with , is able to complete his adls with minimal assistance. PAST MEDICAL HISTORY: as above PAST SURGICAL HISTORY:Prostatectomy Multiple neck surgeries Lumbar surgery Right ankle surgery secondary to trauma PCI with stent LAD 11/30 Social History: Smoking:nonsmoker Alcohol: denies Drugs: denies Allergies gentamicin Allergy (Severe, Verified 12/18/18 08:25) Difficulty Breathing ketorolac [From Toradol] Allergy (Unknown, Verified 12/18/18 08:25) Difficulty Breathing propofol Allergy (Unknown, Verified 12/18/18 08:25) Difficulty Breathing HOME MEDICATIONS: Home Medications Medication Instructions Recorded Febuxostat [Uloric -] 40 mg PO DAILY 04/03/17 Gabapentin 300 mg PO QID 04/03/17 Methocarbamol 750 mg PO BID PRN 04/03/17 Montelukast Na [Singulair -] 10 mg PO HS 04/03/17 Omeprazole Magnesium [Prilosec] 10 mg PO DAILY 04/03/17 Oxycodone HCl [Oxycodone HCl ER] 10 mg PO BID 10/28/17 Clopidogrel Bisulfate [Plavix -] 75 mg PO DAILY #30 tablet 01/12/18 Ferrous Sulfate [Feosol] 325 mg PO DAILY ud 01/12/18 Furosemide [Lasix] 40 mg PO DAILY #30 tablet 01/12/18 Metoprolol Succinate [Toprol XL -] 50 mg PO DAILY #30 tab.sr.24h 01/12/18 Atorvastatin Ca [Lipitor] 40 mg PO HS 11/20/18 Folic Acid 1 mg PO DAILY 11/20/18 Linaclotide [Linzess] 145 mcg PO DAILY 11/20/18 Naloxegol Oxalate [Movantik] 25 mg PO ASDIR 11/20/18 Nortriptyline HCl [Pamelor -] 10 mg PO DAILY 11/20/18 Tamsulosin HCl [Flomax -] 0.4 mg PO DAILY 11/20/18 Zolpidem Tartrate [Ambien] 10 mg PO HS PRN 11/20/18 Acetaminophen [Tylenol .Regular 650 mg PO Q4H PRN tablet 11/24/18 Strength -] Apixaban [Eliquis -] 5 mg PO BID #28 tablet 11/24/18 Apixaban [Eliquis -] 5 mg PO BID 60 Days #30 tablet 11/24/18 Zolpidem Tartrate [Ambien] 5 mg PO HS PRN tablet MDD 5mg 11/24/18 oxyCODONE HCL [Roxicodone -] 10 mg PO Q6H PRN tablet MDD 10mg 11/24/18 REVIEW OF SYSTEMS CONSTITUTIONAL: Absent: fever, chills, diaphoresis CARDIOVASCULAR: Absent: chest pain, syncope RESPIRATORY: + cough (chronic) -shortness of breath GASTROINTESTINAL: Absent: abdominal pain NEUROLOGIC: Absent: headache PHYSICAL EXAMINATION Vital Signs - 24 hr 12/18/18 08:25 Temperature 98.1 F Pulse Rate 73 Respiratory 17 Rate Blood Pressure 104/54 L O2 Sat by Pulse 95 Oximetry (%) GENERAL: Awake, alert, and fully oriented, in no acute distress. HEAD: Normal with no signs of trauma. NECK: Well healed surgical scar anterior neck, well healed surgical scar posterior neck. LUNGS: Breath sounds equal, clear to auscultation bilaterally. No wheezes, and no crackles. No accessory muscle use. HEART: irregularly irregular, normal S1 and S2. ABDOMEN: Soft, nontender, not distended, normoactive bowel sounds, no guarding, no rebound. LE's: R ankle medial/lateral swelling/deformity secondary to prior fracture. NEUROLOGICAL: No facial asymmetry, tongue protrudes midline, speech fluent. 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 Shoulder shrug strong and equal b/l. B/L LE 's 5/5 dorsiflexion/plantar flexion/knee flex/extension/ hip flexion on L, RLE with 3+/5 dorsiflexion/plantar flexion (due to prior ankle injury). 5/5 knee flex/extension/ hip flexion ASSESSMENT/PLAN: 73 y/o M w/ PMHx htn, hld, CAD s/p PCI with stent to LAD 2017, chronic diastolic heart failure, pulmonary htn, PSVT, anemia, h/o Prostate cancer, s/p prostatectomy, GERD, COPD, RA, Afib on Eliquis, peripheral neuropathy, chronic neck and back pain on pain regimen (Oxy CR 10mg BID, oxy IR 10mg BID), Cervical spondylotic myelopathy, now presents to ED for admission for medical optimization/anticoagulation for planned neurosurgery. -Last took Eliquis and Plavix yesterday Planned for OR Friday, 12/[address] Krishnamurthy -Admit to medicine, Dr Kevin -Full labs (cbc, chem, coags, t&s), cxr, ekg -Hold Eliquis/Plavix, restart remainder of home meds (may continue chronic pain regimen) -Plan for bridging with Lovenox 1mg/kg, hold Friday evening and Friday morning dose -Cardiac clearance appreciated -No NSAIDS (prior to sx and for 3 months post op) above d/w attending Dr Krishnamurthy Plan d/w attendings Dr Gant and Dr Kevin Problem List - Problem (1) Cervical myelopathy Code(s): G95.9 - DISEASE OF SPINAL CORD, UNSPECIFIED Visit type - Emergency Visit Emergency Visit: No - New Patient This patient is new to me today: Yes Date on this admission: 12/18/18 - Critical Care Critical Care patient: No
[2018-12-18 09:44] LABS: BASO % 0.3 % (0-2.0); EOS % 3.9 % (0-4.5); HEMATOCRIT 29.7 % (35.4-49); HEMOGLOBIN 10.1 GM/dL (11.7-16.9); LYMPH % 14.4 % (8-40); MCH 34.7 pg (25.7-33.7); MCHC 34.1 g/dl (32.0-35.9); MEAN CELL VOLUME 101.9 fl (80-96); MEAN PLT VOLUME 6.9 fl (7.5-11.1); MONO % 9.2 % (3.8-10.2); NEUT % 72.2 % (42.8-82.8); PLATELET COUNT 342 K/MM3 (134-434); RBC 2.91 M/mm3 (4.00-5.60); RDW 14.3 % (11.9-15.9); WHITE BLOOD COUNT 8.6 K/mm3 (4.0-10.0)
[2018-12-18 10:12] LABS: INR 1.39 (0.83-1.09); PROTHROMBIN TIME (PATIENT) 16.4 SEC (9.7-13.0)
[2018-12-18 10:15] LABS: ACTIVATED PTT 31.2 SECONDS (25.2-36.5)
[2018-12-18 10:25] LABS: ALBUMIN 3.7 g/dl (3.4-5.0); ALK PHOS 84 U/L (45-117); ANION GAP 8 MMOL/L (8-16); BILIRUBIN,TOTAL 0.8 mg/dL (0.2-1); BLOOD UREA NITROGEN 24 mg/dL (7-18); CALCIUM 8.7 mg/dL (8.5-10.1); CHLORIDE 105 mmol/L (98-107); CO2 28 mmol/L (21-32); GLUCOSE,RANDOM 73 mg/dL (74-106); MAGNESIUM 1.9 mg/dL (1.8-2.4); SGOT/AST 18 U/L (15-37); SGPT/ALT 24 U/L (13-61); SODIUM 140 mmol/L (136-145); TOT PROT 6.2 g/dl (6.4-8.2)
--- NOTE | 2018-12-18 11:08 | PN ---
Progress Note, Physician Chief Complaint: Worsening neck and pain. 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 Pt reports h/o 4-5 back surgeries (cervical and lumbar) over the course of the past 10 years. Reports significant worsening of his sxs over the past 6months. Pt endorses weakness and worsening neuropathy in b/l UE/LE. Currently ambulates with a cane, is only able to walk a few feet at a time. Denies any bowel incontinence, reports urinary leakage since his last prostate intervention a few years ago. Denies cp/sob, n/v/d, calf pain/edema, h/o dvt/ pe. At baseline pt lives home with , is able to complete his adls with minimal assistance. - Current Medication List Current Medications: See EMR - Objective Vital Signs: Vital Signs Temperature 98.1 F 12/18/18 08:25 Pulse Rate 73 12/18/18 08:25 Respiratory Rate 17 12/18/18 08:25 Blood Pressure 104/54 L 12/18/18 08:25 O2 Sat by Pulse Oximetry (%) 95 12/18/18 08:25 Constitutional: Yes: No Distress, Calm Eyes: Yes: Conjunctiva Clear, EOM Intact HENT: Yes: Atraumatic, Normocephalic Neck: Yes: Supple, Trachea Midline Cardiovascular: Yes: Regular Rate and Rhythm Respiratory: Yes: CTA Bilaterally Gastrointestinal: Yes: Soft (NT) Edema: No Neurological: Yes: Alert, Oriented ...Motor Strength: WNL Labs: CBC, BMP 12/18/18 09:20 12/18/18 09:20 INR, PTT INR 1.39 (0.83-1.09) H 12/18/18 09:20 Laboratory Tests 11/20/18 11/20/18 11/21/18 12:45 19:00 01:30 WBC Hgb Hct Plt Count Sodium Potassium BUN Creatinine Alkaline Phosphatase Troponin I 0.05 0.06 H 0.06 H 11/23/18 11/23/18 11/24/18 05:30 05:30 05:20 WBC 6.8 Hgb 9.3 L Hct Plt Count 371 Sodium 142 140 Potassium 4.2 4.3 BUN 21 H 17 Creatinine 0.7 0.7 Alkaline Phosphatase Troponin I 11/24/18 12/18/18 12/18/18 05:20 09:20 09:20 WBC 6.1 8.6 Hgb 10.1 L 10.1 L Hct 29.7 L Plt Count 397 342 Sodium 140 Potassium 4.0 BUN 24 H Creatinine 1.0 Alkaline Phosphatase 84 Troponin I 0.22 H - ....Imaging Chest X-ray: Report Reviewed, Image Reviewed EKG: Pending Problem List - Problems (1) Back pain Code(s): M54.9 - DORSALGIA, UNSPECIFIED (2) Paroxysmal atrial fibrillation Code(s): I48.0 - PAROXYSMAL ATRIAL FIBRILLATION (3) CAD (coronary artery disease) Code(s): I25.10 - ATHSCL HEART DISEASE OF [place] CORONARY ARTERY W/O ANG PCTRS Qualifiers: Coronary Disease-Associated Artery/Lesion type: [place] artery [place] vs. transplanted heart: [place] heart Associated angina: without angina Qualified Code(s): I25.10 - Atherosclerotic heart disease of [place] coronary artery without angina pectoris (4) Hx of heart artery stent Code(s): Z95.5 - PRESENCE OF CORONARY ANGIOPLASTY IMPLANT AND GRAFT (5) HTN (hypertension) Code(s): I10 - ESSENTIAL (PRIMARY) HYPERTENSION Qualifiers: Hypertension type: essential hypertension Qualified Code(s): I10 - Essential (primary) hypertension (6) Pulmonary hypertension Code(s): I27.20 - PULMONARY HYPERTENSION, UNSPECIFIED (7) Anticoagulation management encounter Code(s): Z51.81 - ENCOUNTER FOR THERAPEUTIC DRUG LEVEL MONITORING; Z79.01 - ASSISTED (CURRENT) USE OF ANTICOAGULANTS Assessment/Plan IMP: PHTN- prior asbestos exposure CAD s/p PCI PAF Intractable neck pain, cervical disc disease REC: There are no absolute cardiac contraindications to spinal surgery: LV function is normal, Afib is controlled, recent stress test is without ischemia ( 11/23/18 ) and there is no aortic stenosis; blood pressure is well controlled. While there are no absolute contraindications, his antiplatelet and anticoagulation regimens need to be optimized preop: 1. CAD s/p PCI: Plavix may be discontinued now 1 year s/p PCI. He should continue low dose Aspirin 81mg daily if at all feasible from surgical standpoint to minimize the risk of stent thrombosis. This risk is very low, but not 0%. 2. His [id number] score is 4 which is considered high risk for thromboembolism. He will need to be off Eliquis for greater than 3 days preop. Thus, it would be reasonable to consider bridging with unfractionated heparin drip which would require pre-admission or use Lovenox 1mg/kg SQ BID prior to surgery to minimize the risk of thromboembolism. 3. His blood pressure and rate control medications should be taken with a sip of water the morning of surgery. Will follow
[2018-12-18] MEDS ORDERED: METHOCARBAMOL 750 MG TABLET PO PRN (12:49)
[2018-12-18] MEDS ORDERED: ACETAMINOPHEN 325 MG TABLET (FP) PO PRN (12:49)
[2018-12-18] MEDS ORDERED: GABAPENTIN 100 MG CAPSULE (FP) ONE ×2 (14:04→17:55)
[2018-12-18] MEDS: GABAPENTIN 300 MG CAPSULE (FP) PO SCH ×2 (14:04→17:56)
[2018-12-18] MEDS ORDERED: morphine SULFATE 4 MG/ML VIAL ONE (21:38)
[2018-12-19] MEDS ORDERED: morphine CARPU-JECT 2 MG/1 ML DISP.SYRIN IVPUSH PRN (01:49)
[2018-12-19] MEDS: MONTELUKAST NA 10 MG TABLET PO SCH ×2 (02:50→22:43)
[2018-12-19] MEDS: ATORVASTATIN CA 40 MG TABLET (FP) PO SCH ×2 (02:50→22:52)
[2018-12-19] MEDS: MORPHINE SULFATE 2 MG/ML VIAL IVPUSH PRN ×4 (02:52→22:42)
[2018-12-19] MEDS: GABAPENTIN 300 MG CAPSULE (FP) PO SCH ×5 (02:52→22:43)
[2018-12-19 05:58] LABS: BASO % 0.2 % (0-2.0); EOS % 3.9 % (0-4.5); HEMATOCRIT 27.8 % (35.4-49); HEMOGLOBIN 9.4 GM/dL (11.7-16.9); LYMPH % 20.1 % (8-40); MCH 34.3 pg (25.7-33.7); MCHC 33.7 g/dl (32.0-35.9); MEAN CELL VOLUME 101.8 fl (80-96); MONO % 9.9 % (3.8-10.2); NEUT % 65.9 % (42.8-82.8); PLATELET COUNT 311 K/MM3 (134-434); RBC 2.73 M/mm3 (4.00-5.60); RDW 14.3 % (11.9-15.9); WHITE BLOOD COUNT 8.1 K/mm3 (4.0-10.0)
[2018-12-19 06:38] LABS: ALBUMIN 2.9 g/dl (3.4-5.0); ALK PHOS 71 U/L (45-117); ANION GAP 6 MMOL/L (8-16); BILIRUBIN,TOTAL 0.8 mg/dL (0.2-1); BLOOD UREA NITROGEN 18 mg/dL (7-18); CHLORIDE 107 mmol/L (98-107); CO2 28 mmol/L (21-32); CREATININE 0.6 mg/dL (0.55-1.3); GLUCOSE,RANDOM 63 mg/dL (74-106); POTASSIUM 3.9 mmol/L (3.5-5.1); SGOT/AST 14 U/L (15-37); SGPT/ALT 17 U/L (13-61); SODIUM 141 mmol/L (136-145)
--- NOTE | 2018-12-19 08:50 | PN ---
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 Pt reports h/o 4-5 back surgeries (cervical and lumbar) over the course of the past 10 years. Reports significant worsening of his sxs over the past 6months. Pt endorses weakness and worsening neuropathy in b/l UE/LE. Currently ambulates with a cane, is only able to walk a few feet at a time. Denies any bowel incontinence, reports urinary leakage since his last prostate intervention a few years ago. Denies cp/sob, n/v/d, calf pain/edema, h/o dvt/ pe. At baseline pt lives home with , is able to complete his adls with minimal assistance. - Current Medication List Current Medications: Active Medications Acetaminophen (Tylenol -) 650 mg PO Q4H PRN PRN Reason: PAIN LEVEL 1-5 Aspirin (Asa -) 81 mg PO DAILY [facility] Atorvastatin Calcium (Lipitor -) 40 mg PO HS [facility] Last Admin: 12/19/18 02:50 Dose: 40 mg Enoxaparin Sodium (Lovenox -) 100 mg SQ BID [facility] Febuxostat (Uloric -) 40 mg PO DAILY [facility] Ferrous Sulfate (Feosol -) 325 mg PO DAILY [facility] Folic Acid (Folic Acid -) 1 mg PO DAILY [facility] Furosemide (Lasix -) 40 mg PO DAILY [facility] Gabapentin (Neurontin -) 300 mg PO QID [facility] Last Admin: 12/19/18 02:52 Dose: 300 mg Methocarbamol (Robaxin -) 750 mg PO BID PRN PRN Reason: PAIN Metoprolol Succinate (Toprol Xl -) 50 mg PO DAILY [facility] Montelukast Sodium (Singulair -) 10 mg PO HS [facility] Last Admin: 12/19/18 02:50 Dose: 10 mg Morphine Sulfate (Morphine Sulfate) 2 mg IVPUSH Q6H PRN PRN Reason: PAIN LEVEL 6-10 Last Admin: 12/19/18 02:52 Dose: 2 mg Non-Formulary Medication (Linaclotide [Linzess]) 145 mcg PO DAILY [facility] Non-Formulary Medication (Omeprazole Magnesium [Prilosec]) 10 mg PO DAILY [facility] Nortriptyline HCl (Pamelor -) 10 mg PO DAILY [facility] Tamsulosin HCl (Flomax -) 0.4 mg PO DAILY@0830 [facility] Zolpidem Tartrate (Ambien -) 5 mg PO HS PRN PRN Reason: INSOMNIA - Objective Vital Signs: Vital Signs Temperature 97.8 F 12/19/18 00:00 Pulse Rate 78 12/19/18 06:00 Respiratory Rate 18 12/19/18 06:00 Blood Pressure 106/63 12/19/18 06:00 O2 Sat by Pulse Oximetry (%) 95 12/19/18 01:00 Eyes: Yes: WNL, Conjunctiva Clear, EOM Intact HENT: Yes: WNL, Atraumatic, Normocephalic Neck: Yes: WNL, Supple, Trachea Midline Cardiovascular: Yes: Pulse Irregular Respiratory: Yes: WNL, Regular, CTA Bilaterally Gastrointestinal: Yes: WNL, Normal Bowel Sounds Genitourinary: Yes: WNL Musculoskeletal: Yes: WNL Extremities: Yes: WNL Edema: Yes Integumentary: Yes: WNL Neurological: Yes: WNL, Alert, Oriented ...Motor Strength: WNL Psychiatric: Yes: WNL Labs: CBC, BMP 12/19/18 05:30 12/19/18 05:30 INR, PTT INR 1.39 (0.83-1.09) H 12/18/18 09:20 Assessment/Plan - Problems (1) Back pain Code(s): M54.9 - DORSALGIA, UNSPECIFIED (2) Paroxysmal atrial fibrillation Code(s): I48.0 - PAROXYSMAL ATRIAL FIBRILLATION (3) CAD (coronary artery disease) Code(s): I25.10 - ATHSCL HEART DISEASE OF [place] CORONARY ARTERY W/O ANG PCTRS Qualifiers: Coronary Disease-Associated Artery/Lesion type: [place] artery [place] vs. transplanted heart: [place] heart Associated angina: without angina Qualified Code(s): I25.10 - Atherosclerotic heart disease of [place] coronary artery without angina pectoris (4) Hx of heart artery stent Code(s): Z95.5 - PRESENCE OF CORONARY ANGIOPLASTY IMPLANT AND GRAFT (5) HTN (hypertension) Code(s): I10 - ESSENTIAL (PRIMARY) HYPERTENSION Qualifiers: Hypertension type: essential hypertension Qualified Code(s): I10 - Essential (primary) hypertension (6) Pulmonary hypertension Code(s): I27.20 - PULMONARY HYPERTENSION, UNSPECIFIED (7) Anticoagulation management encounter Code(s): Z51.81 - ENCOUNTER FOR THERAPEUTIC DRUG LEVEL MONITORING; 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 While there are no absolute contraindications, his antiplatelet and anticoagulation regimens need to be optimized preop: 1. CAD s/p PCI: Plavix may be discontinued now 1 year s/p PCI. He should continue low dose Aspirin 81mg daily if at all feasible from surgical standpoint to minimize the risk of stent thrombosis. This risk is very low, but not 0%. 2. His [id number] score is 4 which is considered high risk for thromboembolism. He will need to be off Eliquis for greater than 3 days preop. Thus, it would be reasonable to consider bridging with unfractionated heparin drip which would require pre-admission or use Lovenox 1mg/kg SQ BID prior to surgery to minimize the risk of thromboembolism. 3. His blood pressure and rate control medications should be taken with a sip of water the morning of surgery. coverage dr. Gant cc time spent 35 min
[2018-12-19] MEDS: TAMSULOSIN HCL 0.4 MG CAP PO SCH (08:51)
[2018-12-19] MEDS ORDERED: PT OWN MED DRAWER 7, Y5N ONE ×3 (09:00→11:15)
[2018-12-19] MEDS: ASPIRIN 81 MG CHEWABLE TABLETS PO SCH (09:39)
[2018-12-19] MEDS: FERROUS SO4 325 MG TABLET (FP) PO SCH (09:39)
[2018-12-19] MEDS: FOLIC ACID 1 MG TABLET (FP) PO SCH (09:39)
[2018-12-19] MEDS: FUROSEMIDE 40 MG TABLET (FP) PO SCH (09:39)
[2018-12-19] MEDS: FEBUXOSTAT 40 MG TAB PO SCH (09:39)
[2018-12-19] MEDS: NORTRIPTYLINE HCL 10 MG CAPSULE PO SCH (09:40)
[2018-12-19] MEDS ORDERED: PATIENT'S OWN MEDICATION (NON-FORMULARY) (Linaclotide [Linzess] 145 MCG) PO SCH (10:00)
[2018-12-19] MEDS: ENOXAPARIN NA (PORCINE) 100 MG/1 ML DISP.SYRIN SQ SCH ×2 (11:12→22:52)
--- NOTE | 2018-12-19 12:39 | PN ---
Progress Note (short form) - Note Progress Note: Patient under preparation for surgical revision of Lumbar and Cervical spine fusions on Saturday December 22, 2018. Patient stable and ambulates with assistance. - Drs. Gant and Herberth assistance appreciated. - Anticoagulation as described. Will continue 81mg ASA through surgery - GI/DVT prophylaxis
--- NOTE | 2018-12-19 19:16 | PN ---
Progress Note, Physician - Current Medication List Current Medications: Active Medications Acetaminophen (Tylenol -) 650 mg PO Q4H PRN PRN Reason: PAIN LEVEL 1-5 Aspirin (Asa -) 81 mg PO DAILY [facility] Last Admin: 12/19/18 09:39 Dose: 81 mg Atorvastatin Calcium (Lipitor -) 40 mg PO HS [facility] Last Admin: 12/19/18 02:50 Dose: 40 mg Docusate Sodium (Colace -) 100 mg PO TID [facility] Enoxaparin Sodium (Lovenox -) 100 mg SQ BID [facility] Last Admin: 12/19/18 11:12 Dose: 100 mg Febuxostat (Uloric -) 40 mg PO DAILY [facility] Last Admin: 12/19/18 09:39 Dose: 40 mg Ferrous Sulfate (Feosol -) 325 mg PO DAILY [facility] Last Admin: 12/19/18 09:39 Dose: 325 mg Folic Acid (Folic Acid -) 1 mg PO DAILY [facility] Last Admin: 12/19/18 09:39 Dose: 1 mg Furosemide (Lasix -) 40 mg PO DAILY [facility] Last Admin: 12/19/18 09:39 Dose: 40 mg Gabapentin (Neurontin -) 300 mg PO QID [facility] Last Admin: 12/19/18 17:56 Dose: 300 mg Methocarbamol (Robaxin -) 750 mg PO BID PRN PRN Reason: PAIN Metoprolol Succinate (Toprol Xl -) 50 mg PO DAILY [facility] Montelukast Sodium (Singulair -) 10 mg PO HS [facility] Last Admin: 12/19/18 02:50 Dose: 10 mg Morphine Sulfate (Morphine Sulfate) 2 mg IVPUSH Q6H PRN PRN Reason: PAIN LEVEL 6-10 Last Admin: 12/19/18 15:33 Dose: 2 mg Non-Formulary Medication (Linaclotide [Linzess]) 145 mcg PO DAILY [facility] Non-Formulary Medication (Omeprazole Magnesium [Prilosec]) 10 mg PO DAILY [facility] Nortriptyline HCl (Pamelor -) 10 mg PO DAILY [facility] Last Admin: 12/19/18 09:40 Dose: 10 mg Tamsulosin HCl (Flomax -) 0.4 mg PO DAILY@0830 [facility] Last Admin: 12/19/18 08:51 Dose: 0.4 mg Zolpidem Tartrate (Ambien -) 5 mg PO HS PRN PRN Reason: INSOMNIA - Objective Vital Signs: Vital Signs Temperature 98.2 F 12/19/18 18:00 Pulse Rate 77 12/19/18 18:00 Respiratory Rate 20 12/19/18 18:00 Blood Pressure 101/70 12/19/18 18:00 O2 Sat by Pulse Oximetry (%) 100 12/19/18 17:00 Labs: CBC, BMP 12/19/18 05:30 12/19/18 05:30 INR, PTT INR 1.39 (0.83-1.09) H 12/18/18 09:20
[2018-12-19] MEDS: ZOLPIDEM TARTRATE 5 MG TABLET PO PRN (22:42)
[2018-12-19] MEDS: DOCUSATE SODIUM 100 MG CAPSULE (FP) PO SCH (22:42)
[2018-12-20] MEDS: DOCUSATE SODIUM 100 MG CAPSULE (FP) PO SCH ×3 (06:06→22:00)
--- NOTE | 2018-12-20 09:21 | PN ---
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 Pt reports h/o 4-5 back surgeries (cervical and lumbar) over the course of the past 10 years. Reports significant worsening of his sxs over the past 6months. Pt endorses weakness and worsening neuropathy in b/l UE/LE. Currently ambulates with a cane, is only able to walk a few feet at a time. Denies any bowel incontinence, reports urinary leakage since his last prostate intervention a few years ago. Denies cp/sob, n/v/d, calf pain/edema, h/o dvt/ pe. At baseline pt lives home with , is able to complete his adls with minimal assistance. - Current Medication List Current Medications: Active Medications Acetaminophen (Tylenol -) 650 mg PO Q4H PRN PRN Reason: PAIN LEVEL 1-5 Aspirin (Asa -) 81 mg PO DAILY [facility] Last Admin: 12/19/18 09:39 Dose: 81 mg Atorvastatin Calcium (Lipitor -) 40 mg PO HS [facility] Last Admin: 12/19/18 22:52 Dose: 40 mg Docusate Sodium (Colace -) 100 mg PO TID [facility] Last Admin: 12/20/18 06:06 Dose: 100 mg Enoxaparin Sodium (Lovenox -) 100 mg SQ BID [facility] Last Admin: 12/19/18 22:52 Dose: 100 mg Febuxostat (Uloric -) 40 mg PO DAILY [facility] Last Admin: 12/19/18 09:39 Dose: 40 mg Ferrous Sulfate (Feosol -) 325 mg PO DAILY [facility] Last Admin: 12/19/18 09:39 Dose: 325 mg Folic Acid (Folic Acid -) 1 mg PO DAILY [facility] Last Admin: 12/19/18 09:39 Dose: 1 mg Furosemide (Lasix -) 40 mg PO DAILY [facility] Last Admin: 12/19/18 09:39 Dose: 40 mg Gabapentin (Neurontin -) 300 mg PO QID [facility] Last Admin: 12/19/18 22:43 Dose: 300 mg Methocarbamol (Robaxin -) 750 mg PO BID PRN PRN Reason: PAIN Metoprolol Succinate (Toprol Xl -) 50 mg PO DAILY [facility] Montelukast Sodium (Singulair -) 10 mg PO HS [facility] Last Admin: 12/19/18 22:43 Dose: 10 mg Morphine Sulfate (Morphine Sulfate) 2 mg IVPUSH Q6H PRN PRN Reason: PAIN LEVEL 6-10 Last Admin: 12/19/18 22:42 Dose: 2 mg Non-Formulary Medication (Linaclotide [Linzess]) 145 mcg PO DAILY [facility] Non-Formulary Medication (Omeprazole Magnesium [Prilosec]) 10 mg PO DAILY [facility] Nortriptyline HCl (Pamelor -) 10 mg PO DAILY [facility] Last Admin: 12/19/18 09:40 Dose: 10 mg Tamsulosin HCl (Flomax -) 0.4 mg PO DAILY@0830 [facility] Last Admin: 12/19/18 08:51 Dose: 0.4 mg Zolpidem Tartrate (Ambien -) 5 mg PO HS PRN PRN Reason: INSOMNIA Last Admin: 12/19/18 22:42 Dose: 5 mg - Objective Vital Signs: Vital Signs Temperature 98.2 F 12/20/18 04:00 Pulse Rate 81 12/20/18 04:00 Respiratory Rate 18 12/20/18 04:00 Blood Pressure 108/78 12/20/18 04:00 O2 Sat by Pulse Oximetry (%) 100 12/19/18 20:00 Eyes: Yes: WNL, Conjunctiva Clear, EOM Intact HENT: Yes: WNL, Atraumatic, Normocephalic Neck: Yes: WNL, Supple, Trachea Midline Cardiovascular: Yes: WNL, Regular Rate and Rhythm Respiratory: Yes: WNL, Regular, CTA Bilaterally Gastrointestinal: Yes: WNL, Normal Bowel Sounds Genitourinary: Yes: WNL Musculoskeletal: Yes: WNL Extremities: Yes: WNL Edema: No Integumentary: Yes: WNL Neurological: Yes: WNL, Alert, Oriented ...Motor Strength: WNL Psychiatric: Yes: WNL Labs: CBC, BMP 12/19/18 05:30 12/19/18 05:30 INR, PTT INR 1.39 (0.83-1.09) H 12/18/18 09:20 Assessment/Plan - Problems (1) Back pain Code(s): M54.9 - [place]ORS[place], UNSPECIFIED (2) Paroxysmal atrial fibrillation Code(s): I48.0 - PAROXYSMAL ATRIAL FIBRILLATION (3) CAD (coronary artery disease) Code(s): I25.10 - ATHSCL HEART DISEASE OF [place] CORONARY ARTERY W/O ANG PCTRS Qualifiers: Coronary Disease-Associated Artery/Lesion type: [place] artery [place] vs. transplanted heart: [place] heart Associated angina: without angina Qualified Code(s): I25.10 - Atherosclerotic heart disease of [place] coronary artery without angina pectoris (4) Hx of heart artery stent Code(s): Z95.5 - PRESENCE OF CORONARY ANGIOPLASTY IMPLANT AND GRAFT (5) HTN (hypertension) Code(s): I10 - ESSENTIAL (PRIMARY) HYPERTENSION Qualifiers: Hypertension type: essential hypertension Qualified Code(s): I10 - Essential (primary) hypertension (6) Pulmonary hypertension Code(s): I27.20 - PULMONARY HYPERTENSION, UNSPECIFIED (7) Anticoagulation management encounter Code(s): Z51.81 - ENCOUNTER FOR THERAPEUTIC DRUG LEVEL MONITORING; Z79.01 - SHELTER (CURRENT) USE OF ANTICOAGULANTS Assessment/Plan IMP: PHTN- prior asbestos exposure CAD s/p PCI PAF Intractable neck pain, cervical disc disease REC: There are no absolute cardiac contraindications to spinal surgery: LV function is normal, Afib is controlled, recent stress test is without ischemia ( 11/23/18 ) and there is no aortic stenosis; blood pressure is well controlled. While there are no absolute contraindications, his antiplatelet and anticoagulation regimens need to be optimized preop: 1. CAD s/p PCI: Plavix may be discontinued now 1 year s/p PCI. He should continue low dose Aspirin 81mg daily if at all feasible from surgical standpoint to minimize the risk of stent thrombosis. This risk is very low, but not 0%. 2. His [id number] score is 4 which is considered high risk for thromboembolism. He will need to be off Eliquis for greater than 3 days preop. Thus, it would be reasonable to consider bridging with unfractionated heparin drip which would require pre-admission or use Lovenox 1mg/kg SQ BID prior to surgery to minimize the risk of thromboembolism. 3. His blood pressure and rate control medications should be taken with a sip of water the morning of surgery. coverage dr. Gant cc time spent 35 min
[2018-12-20] MEDS: TAMSULOSIN HCL 0.4 MG CAP PO SCH (09:27)
--- NOTE | 2018-12-20 11:14 | PN ---
Progress Note (short form) - Note Progress Note: Patient stable on telemetry. Ambulating to bathroom. Plans for surgery Friday with preoperative Cardiac optimization remain in place.
[2018-12-20] MEDS: FERROUS SO4 325 MG TABLET (FP) PO SCH (11:25)
[2018-12-20] MEDS: FUROSEMIDE 40 MG TABLET (FP) PO SCH (11:26)
[2018-12-20] MEDS: GABAPENTIN 300 MG CAPSULE (FP) PO SCH ×4 (11:26→22:01)
[2018-12-20] MEDS: FOLIC ACID 1 MG TABLET (FP) PO SCH (11:26)
[2018-12-20] MEDS: ASPIRIN 81 MG CHEWABLE TABLETS PO SCH (11:27)
[2018-12-20] MEDS: ENOXAPARIN NA (PORCINE) 100 MG/1 ML DISP.SYRIN SQ SCH ×2 (11:27→21:59)
[2018-12-20] MEDS: NORTRIPTYLINE HCL 10 MG CAPSULE PO SCH (11:28)
[2018-12-20] MEDS: FEBUXOSTAT 40 MG TAB PO SCH (11:28)
[2018-12-20] MEDS: MORPHINE SULFATE 2 MG/ML VIAL IVPUSH PRN ×3 (11:31→22:01)
--- NOTE | 2018-12-20 11:57 | EKG ---
Test Reason : Blood Pressure : / mmHG Vent. Rate : 080 BPM Atrial Rate : 052 BPM P-R Int : 000 ms QRS Dur : 100 ms QT Int : 434 ms P-R-T Axes : 000 -01 013 degrees QTc Int : 500 ms ATRIAL FIBRILLATION WITH A COMPETING JUNCTIONAL PACEMAKER INCOMPLETE RIGHT BUNDLE BRANCH BLOCK PROLONGED QT ABNORMAL ECG WHEN COMPARED WITH ECG OF 20-NOV-2018 19:00, QT HAS LENGTHENED Confirmed by STEPH TREJO, JESUS ([id number]) on 12/20/2018 11:56:58 AM Referred By: Confirmed By:JESUS CHOI MD
--- NOTE | 2018-12-20 19:15 | PN ---
Progress Note, Physician History of Present Illness: stable - Current Medication List Current Medications: Active Medications Acetaminophen (Tylenol -) 650 mg PO Q4H PRN PRN Reason: PAIN LEVEL 1-5 Aspirin (Asa -) 81 mg PO DAILY [facility] Last Admin: 12/20/18 11:27 Dose: 81 mg Atorvastatin Calcium (Lipitor -) 40 mg PO HS [facility] Last Admin: 12/19/18 22:52 Dose: 40 mg Docusate Sodium (Colace -) 100 mg PO TID [facility] Last Admin: 12/20/18 14:03 Dose: 100 mg Enoxaparin Sodium (Lovenox -) 100 mg SQ BID [facility] Last Admin: 12/20/18 11:27 Dose: 100 mg Febuxostat (Uloric -) 40 mg PO DAILY [facility] Last Admin: 12/20/18 11:28 Dose: 40 mg Ferrous Sulfate (Feosol -) 325 mg PO DAILY [facility] Last Admin: 12/20/18 11:25 Dose: 325 mg Folic Acid (Folic Acid -) 1 mg PO DAILY [facility] Last Admin: 12/20/18 11:26 Dose: 1 mg Furosemide (Lasix -) 40 mg PO DAILY [facility] Last Admin: 12/20/18 11:26 Dose: 40 mg Gabapentin (Neurontin -) 300 mg PO QID [facility] Last Admin: 12/20/18 18:30 Dose: 300 mg Methocarbamol (Robaxin -) 750 mg PO BID PRN PRN Reason: PAIN Metoprolol Succinate (Toprol Xl -) 50 mg PO DAILY [facility] Last Admin: 12/20/18 11:26 Dose: 50 mg Montelukast Sodium (Singulair -) 10 mg PO [facility] Last Admin: 12/19/18 22:43 Dose: 10 mg Morphine Sulfate (Morphine Sulfate) 2 mg IVPUSH Q6H PRN PRN Reason: PAIN LEVEL 6-10 Last Admin: 12/20/18 16:30 Dose: 2 mg Non-Formulary Medication (Linaclotide [Linzess]) 145 mcg PO DAILY [facility] Non-Formulary Medication (Omeprazole Magnesium [Prilosec]) 10 mg PO DAILY [facility] Nortriptyline HCl (Pamelor -) 10 mg PO DAILY [facility] Last Admin: 12/20/18 11:28 Dose: 10 mg Tamsulosin HCl (Flomax -) 0.4 mg PO DAILY@0830 [facility] Last Admin: 12/20/18 09:27 Dose: 0.4 mg Zolpidem Tartrate (Ambien -) 5 mg PO HS PRN PRN Reason: INSOMNIA Last Admin: 12/19/18 22:42 Dose: 5 mg - Objective Vital Signs: Vital Signs Temperature 98.0 F 12/20/18 17:00 Pulse Rate 86 12/20/18 17:00 Respiratory Rate 16 12/20/18 17:00 Blood Pressure 113/65 12/20/18 17:00 O2 Sat by Pulse Oximetry (%) 100 12/20/18 10:00 Constitutional: Yes: No Distress HENT: Yes: Atraumatic Neck: Yes: Supple Cardiovascular: Yes: Regular Rate and Rhythm Respiratory: Yes: CTA Bilaterally Gastrointestinal: Yes: Normal Bowel Sounds Extremities: Yes: WNL Edema: No Peripheral Pulses WNL: Yes Neurological: Yes: Alert, Oriented Labs: CBC, BMP 12/19/18 05:30 12/19/18 05:30 INR, PTT INR 1.39 (0.83-1.09) H 12/18/18 09:20 Problem List - Problems (1) Back pain Assessment/Plan: patient on pain meds for surgery on friday Code(s): M54.9 - DORSALGIA, UNSPECIFIED (2) Paroxysmal atrial fibrillation Assessment/Plan: on lovenox..weight based Code(s): I48.0 - PAROXYSMAL ATRIAL FIBRILLATION (3) Pulmonary hypertension Code(s): I27.20 - PULMONARY HYPERTENSION, UNSPECIFIED (4) COPD (chronic obstructive pulmonary disease) Assessment/Plan: on meds stable Code(s): J44.9 - CHRONIC OBSTRUCTIVE PULMONARY DISEASE, UNSPECIFIED (5) Chronic back pain Code(s): M54.9 - DORSALGIA, UNSPECIFIED; G89.29 - OTHER CHRONIC PAIN Qualifiers: Back pain location: back pain in unspecified location Back pain laterality : midline Qualified Code(s): M54.9 - Dorsalgia, unspecified; G89.29 - Other chronic pain (6) GERD (gastroesophageal reflux disease) Code(s): K21.9 - GASTRO-ESOPHAGEAL REFLUX DISEASE WITHOUT ESOPHAGITIS (7) HLD (hyperlipidemia) Assessment/Plan: on meds Code(s): E78.5 - HYPERLIPIDEMIA, UNSPECIFIED (8) HTN (hypertension) Assessment/Plan: on meds Code(s): I10 - ESSENTIAL (PRIMARY) HYPERTENSION Qualifiers: Hypertension type: essential hypertension Qualified Code(s): I10 - Essential (primary) hypertension Assessment/Plan COVERING FOR DR GAMEZ TODAY
[2018-12-20] MEDS: ATORVASTATIN CA 40 MG TABLET (FP) PO SCH (22:00)
[2018-12-20] MEDS: ZOLPIDEM TARTRATE 5 MG TABLET PO PRN (22:00)
[2018-12-20] MEDS: MONTELUKAST NA 10 MG TABLET PO SCH (22:01)
[2018-12-21] MEDS: MORPHINE SULFATE 2 MG/ML VIAL IVPUSH PRN ×4 (05:28→23:13)
[2018-12-21] MEDS: DOCUSATE SODIUM 100 MG CAPSULE (FP) PO SCH ×3 (05:29→21:40)
[2018-12-21] MEDS: TAMSULOSIN HCL 0.4 MG CAP PO SCH (08:39)
--- NOTE | 2018-12-21 08:46 | PN ---
Progress Note, Physician Chief Complaint: seen and examined in ICU No distress: no chest pain, sob, palpitations History of Present Illness: Telemetry reviewed: Controlled atrial fibrillation - Current Medication List Current Medications: Active Medications Acetaminophen (Tylenol -) 650 mg PO Q4H PRN PRN Reason: PAIN LEVEL 1-5 Aspirin (Asa -) 81 mg PO DAILY [facility] Last Admin: 12/20/18 11:27 Dose: 81 mg Atorvastatin Calcium (Lipitor -) 40 mg PO HS [facility] Last Admin: 12/20/18 22:00 Dose: 40 mg Chlorhexidine Gluconate (Hibiclens For Decolonization -) 1 applic TP [facility] Docusate Sodium (Colace -) 100 mg PO TID [facility] Last Admin: 12/21/18 05:29 Dose: 100 mg Enoxaparin Sodium (Lovenox -) 100 mg SQ BID [facility] Last Admin: 12/20/18 21:59 Dose: 100 mg Febuxostat (Uloric -) 40 mg PO DAILY [facility] Last Admin: 12/20/18 11:28 Dose: 40 mg Ferrous Sulfate (Feosol -) 325 mg PO DAILY [facility] Last Admin: 12/20/18 11:25 Dose: 325 mg Folic Acid (Folic Acid -) 1 mg PO DAILY [facility] Last Admin: 12/20/18 11:26 Dose: 1 mg Furosemide (Lasix -) 40 mg PO DAILY [facility] Last Admin: 12/20/18 11:26 Dose: 40 mg Gabapentin (Neurontin -) 300 mg PO QID [facility] Last Admin: 12/20/18 22:01 Dose: 300 mg Methocarbamol (Robaxin -) 750 mg PO BID PRN PRN Reason: PAIN Metoprolol Succinate (Toprol Xl -) 50 mg PO DAILY [facility] Last Admin: 12/20/18 11:26 Dose: 50 mg Montelukast Sodium (Singulair -) 10 mg PO HS [facility] Last Admin: 12/20/18 22:01 Dose: 10 mg Morphine Sulfate (Morphine Sulfate) 2 mg IVPUSH Q6H PRN PRN Reason: PAIN LEVEL 6-10 Last Admin: 12/21/18 05:28 Dose: 2 mg Non-Formulary Medication (Linaclotide [Linzess]) 145 mcg PO DAILY [facility] Non-Formulary Medication (Omeprazole Magnesium [Prilosec]) 10 mg PO DAILY [facility] Nortriptyline HCl (Pamelor -) 10 mg PO DAILY [facility] Last Admin: 12/20/18 11:28 Dose: 10 mg Tamsulosin HCl (Flomax -) 0.4 mg PO DAILY@0830 [facility] Last Admin: 12/21/18 08:39 Dose: 0.4 mg Zolpidem Tartrate (Ambien -) 5 mg PO HS PRN PRN Reason: INSOMNIA Last Admin: 12/20/18 22:00 Dose: 5 mg - Objective Vital Signs: Vital Signs Temperature 98.4 F 12/21/18 06:00 Pulse Rate 76 12/21/18 06:00 Respiratory Rate 18 12/21/18 06:00 Blood Pressure 105/58 L 12/21/18 06:00 O2 Sat by Pulse Oximetry (%) 100 12/20/18 21:00 Constitutional: Yes: No Distress, Calm Eyes: Yes: Conjunctiva Clear Cardiovascular: Yes: Pulse Irregular Respiratory: Yes: CTA Bilaterally (no wheezing or rales.) Gastrointestinal: Yes: Soft (NT) Edema: No Neurological: Yes: Alert, Oriented ...Motor Strength: WNL Labs: CBC, BMP 12/19/18 05:30 12/19/18 05:30 INR, PTT INR 1.39 (0.83-1.09) H 12/18/18 09:20 Laboratory Tests 12/19/18 12/19/18 05:30 05:30 WBC 8.1 Hgb 9.4 L Plt Count 311 Sodium 141 Potassium 3.9 BUN 18 Creatinine 0.6 - ....Imaging EKG: Image Reviewed Problem List - Problems (1) Back pain Code(s): M54.9 - DORSALGIA, UNSPECIFIED (2) Paroxysmal atrial fibrillation Code(s): I48.0 - PAROXYSMAL ATRIAL FIBRILLATION (3) CAD (coronary artery disease) Code(s): I25.10 - ATHSCL HEART DISEASE OF [place] CORONARY ARTERY W/O ANG PCTRS Qualifiers: Coronary Disease-Associated Artery/Lesion type: [place] artery [place] vs. transplanted heart: [place] heart Associated angina: without angina Qualified Code(s): I25.10 - Atherosclerotic heart disease of [place] coronary artery without angina pectoris (4) Hx of heart artery stent Code(s): Z95.5 - PRESENCE OF CORONARY ANGIOPLASTY IMPLANT AND GRAFT (5) HTN (hypertension) Code(s): I10 - ESSENTIAL (PRIMARY) HYPERTENSION Qualifiers: Hypertension type: essential hypertension Qualified Code(s): I10 - Essential (primary) hypertension (6) Pulmonary hypertension Code(s): I27.20 - PULMONARY HYPERTENSION, UNSPECIFIED (7) Anticoagulation management encounter Code(s): Z51.81 - ENCOUNTER FOR THERAPEUTIC DRUG LEVEL MONITORING; Z79.01 - VEGETABLE TESTER (CURRENT) USE OF ANTICOAGULANTS Assessment/Plan IMP: PHTN- prior asbestos exposure CAD s/p PCI PAF Intractable neck pain, cervical disc disease REC: There are no absolute cardiac contraindications to spinal surgery: LV function is normal, Afib is controlled, recent stress test is without ischemia ( 11/23/18 ) and there is no aortic stenosis; blood pressure is well controlled. The borderline TnI is chronic and most likely due to his chronic PHTN. While there are no absolute contraindications, his antiplatelet and anticoagulation regimens need to be optimized preop: 1. CAD s/p PCI: Plavix may be discontinued now 1 year s/p PCI. He should continue low dose Aspirin 81mg daily if at all feasible from surgical standpoint to minimize the risk of stent thrombosis. This risk is very low, but not 0%. 2. His [id number] score is 4 which is considered high risk for thromboembolism. He will need to be off Eliquis for greater than 3 days preop. Thus, it would be reasonable to consider bridging with unfractionated heparin drip which would require pre-admission or use Lovenox 1mg/kg SQ BID prior to surgery to minimize the risk of thromboembolism. Hold the anticoagulant preop as per N-surgery. 3. His blood pressure and rate control medications should be taken with a sip of water the morning of surgery. Currently, both are controlled/optimized. Will follow.
[2018-12-21] MEDS: FUROSEMIDE 40 MG TABLET (FP) PO SCH (09:38)
[2018-12-21] MEDS: FERROUS SO4 325 MG TABLET (FP) PO SCH (09:38)
[2018-12-21] MEDS: GABAPENTIN 300 MG CAPSULE (FP) PO SCH ×4 (09:38→21:43)
[2018-12-21] MEDS: ASPIRIN 81 MG CHEWABLE TABLETS PO SCH (09:38)
[2018-12-21] MEDS: FOLIC ACID 1 MG TABLET (FP) PO SCH (09:38)
[2018-12-21] MEDS: ENOXAPARIN NA (PORCINE) 100 MG/1 ML DISP.SYRIN SQ SCH (09:39)
[2018-12-21] MEDS: FEBUXOSTAT 40 MG TAB PO SCH (09:39)
[2018-12-21] MEDS: NORTRIPTYLINE HCL 10 MG CAPSULE PO SCH (09:39)
[2018-12-21] MEDS: ATORVASTATIN CA 40 MG TABLET (FP) PO SCH (21:44)
[2018-12-21] MEDS ORDERED: CHLORHEXIDINE GLUCONATE 4% CLEANSER FOR DECOLONIZATION TP SCH (22:00)
[2018-12-21] MEDS ORDERED: ZOLPIDEM TARTRATE 5 MG TABLET PO PRN (22:48)
[2018-12-21] MEDS: MONTELUKAST NA 10 MG TABLET PO SCH (23:13)
[2018-12-22] MEDS: DOCUSATE SODIUM 100 MG CAPSULE (FP) PO SCH (05:58)
[2018-12-22 06:24] LABS: BASO % 0.5 % (0-2.0); EOS % 6.4 % (0-4.5); HEMATOCRIT 25.7 % (35.4-49); HEMOGLOBIN 8.7 GM/dL (11.7-16.9); LYMPH % 27.1 % (8-40); MCH 34.2 pg (25.7-33.7); MCHC 33.8 g/dl (32.0-35.9); MEAN CELL VOLUME 101.1 fl (80-96); MEAN PLT VOLUME 7.1 fl (7.5-11.1); MONO % 10.3 % (3.8-10.2); NEUT % 55.7 % (42.8-82.8); PLATELET COUNT 304 K/MM3 (134-434); RBC 2.54 M/mm3 (4.00-5.60); RDW 14.2 % (11.9-15.9); WHITE BLOOD COUNT 8.1 K/mm3 (4.0-10.0)
[2018-12-22 06:38] LABS: ANION GAP 5 MMOL/L (8-16); BLOOD UREA NITROGEN 16 mg/dL (7-18); CALCIUM 8.1 mg/dL (8.5-10.1); CHLORIDE 108 mmol/L (98-107); CO2 29 mmol/L (21-32); CREATININE 0.6 mg/dL (0.55-1.3); GLUCOSE,RANDOM 70 mg/dL (74-106); POTASSIUM 3.8 mmol/L (3.5-5.1); SODIUM 141 mmol/L (136-145)
[2018-12-22 06:41] LABS: INR 1.3 (0.83-1.09); PROTHROMBIN TIME (PATIENT) 15.4 SEC (9.7-13.0)
[2018-12-22 06:44] LABS: ACTIVATED PTT 31.5 SECONDS (25.2-36.5)
[2018-12-22] MEDS ORDERED: LIDOCAINE 1%-EPI 1:100,000 30 ML MDV IJ ONE ×2 (07:46→13:38)
[2018-12-22] MEDS ORDERED: GENTAMICIN SO4 80 MG/2 ML VIAL ONE (07:46)
[2018-12-22] MEDS ORDERED: VANCOMYCIN 1,000 MG VIAL (RESTRICTED TO ID ONLY) ONE ×3 (07:47→10:29)
[2018-12-22] MEDS ORDERED: THROMBIN (BOVINE) 20,000 UNIT VIAL TP ONE ×2 (07:47→15:09)
[2018-12-22] MEDS ORDERED: BACITRACIN 15 GM TUBE TOPICAL OINTMENT ONE (08:02)
[2018-12-22] MEDS ORDERED: MIDAZOLAM HCL 2 MG/2 ML SINGLE DOSE VIAL ONE (08:24)
[2018-12-22] MEDS ORDERED: LIDOCAINE HCL/PF 2% SDV 5ML VIAL ONE ×2 (08:26→09:17)
[2018-12-22] MEDS ORDERED: ETOMIDATE 20 MG/10 ML AMPUL IVPUSH ONE (08:26)
[2018-12-22] MEDS ORDERED: VECURONIUM BROMIDE 10 MG VIAL ONE ×4 (08:26→15:51)
[2018-12-22] MEDS ORDERED: SODIUM CHLORIDE 0.9% P/F 10 ML VIAL IJ ONE ×4 (08:50→11:19)
[2018-12-22] MEDS ORDERED: PANTOPRAZOLE 20 MG TABLET (FP) PO SCH (10:00)
[2018-12-22] MEDS ORDERED: ePHEDrine SULFATE 50 MG/1 ML AMPULE ONE ×2 (10:06→19:32)
[2018-12-22] MEDS ORDERED: ceFAZolin SODIUM 1 GM VIAL ONE ×2 (10:27→14:40)
[2018-12-22] MEDS ORDERED: ceFAZolin SODIUM 1 GM VIAL IVPB ONE ×2 (10:30→11:40)
[2018-12-22] MEDS ORDERED: ROCURONIUM BROMIDE 50 MG/5 ML VIAL ONE (10:45)
[2018-12-22] MEDS ORDERED: VANCOMYCIN 1,000 MG VIAL (RESTRICTED TO ID ONLY) IVPB ONE ×4 (11:00→18:12)
[2018-12-22] MEDS ORDERED: BACITRACIN 15 GM TUBE TOPICAL OINTMENT TP ONE (11:20)
[2018-12-22] MEDS ORDERED: LIDOCAINE 1%/EPI 1:100000 (50 ML MULTI DOSE VIAL) NR ONE ×3 (11:21→15:25)
[2018-12-22] MEDS ORDERED: GELATIN, ABSORBABLE 12-7MM EACH SPONGE TP ONE (11:44)
[2018-12-22] MEDS ORDERED: THROMBIN (BOVINE) 5,000 UNIT VIAL TP ONE (11:44)
[2018-12-22] MEDS ORDERED: BACITRACIN 50,000 UNITS VIAL NR ONE ×2 (11:50→13:02)
[2018-12-22] MEDS ORDERED: DESFLURANE GAS 240 ML BOTTLE IH ONE (11:52)
[2018-12-22] MEDS ORDERED: ONDANSETRON 4 MG/2 ML VIAL ONE (12:07)
[2018-12-22] MEDS ORDERED: DEXAMETHASONE SOD PHOSPHATE 4 MG/1 ML VIAL ONE (12:07)
[2018-12-22] MEDS ORDERED: HYDROGEN PEROXIDE 473 ML PO ONE (12:15)
[2018-12-22] MEDS ORDERED: LIDOCAINE HCL 1%, 10 MG/ML (20ML VIAL) ONE (13:27)
[2018-12-22] MEDS ORDERED: BUPIVACAINE HCL/PF 0.5% (5MG/ML) 10 ML VIAL ONE ×2 (13:39→14:40)
--- NOTE | 2018-12-22 14:33 | PN ---
Progress Note, Physician - Current Medication List Current Medications: Active Medications Acetaminophen (Tylenol -) 650 mg PO Q4H PRN PRN Reason: PAIN LEVEL 1-5 Aspirin (Asa -) 81 mg PO DAILY [facility] Last Admin: 12/21/18 09:38 Dose: 81 mg Atorvastatin Calcium (Lipitor -) 40 mg PO HS [facility] Last Admin: 12/21/18 21:44 Dose: 40 mg Chlorhexidine Gluconate (Hibiclens For Decolonization -) 1 applic TP HS [facility] Last Admin: 12/21/18 21:41 Dose: 1 applic Docusate Sodium (Colace -) 100 mg PO TID [facility] Last Admin: 12/22/18 05:58 Dose: Not Given Febuxostat (Uloric -) 40 mg PO DAILY [facility] Last Admin: 12/21/18 09:39 Dose: 40 mg Ferrous Sulfate (Feosol -) 325 mg PO DAILY [facility] Last Admin: 12/21/18 09:38 Dose: 325 mg Folic Acid (Folic Acid -) 1 mg PO DAILY [facility] Last Admin: 12/21/18 09:38 Dose: 1 mg Furosemide (Lasix -) 40 mg PO DAILY [facility] Last Admin: 12/21/18 09:38 Dose: 40 mg Gabapentin (Neurontin -) 300 mg PO QID [facility] Last Admin: 12/21/18 21:43 Dose: 300 mg Methocarbamol (Robaxin -) 750 mg PO BID PRN PRN Reason: PAIN Last Admin: 12/21/18 14:59 Dose: 750 mg Metoprolol Succinate (Toprol Xl -) 50 mg PO DAILY [facility] Last Admin: 12/21/18 09:38 Dose: 50 mg Montelukast Sodium (Singulair -) 10 mg PO HS [facility] Last Admin: 12/21/18 23:13 Dose: 10 mg Non-Formulary Medication (Linaclotide [Linzess]) 145 mcg PO DAILY [facility] Nortriptyline HCl (Pamelor -) 10 mg PO DAILY [facility] Last Admin: 12/21/18 09:39 Dose: 10 mg Pantoprazole Sodium (Protonix -) 20 mg PO DAILY [facility] Tamsulosin HCl (Flomax -) 0.4 mg PO DAILY@0830 [facility] Last Admin: 12/21/18 08:39 Dose: 0.4 mg Zolpidem Tartrate (Ambien -) 5 mg PO HS PRN PRN Reason: INSOMNIA Last Admin: 12/21/18 23:13 Dose: 5 mg - Objective Vital Signs: Vital Signs Temperature 97.9 F 12/21/18 16:00 Pulse Rate 75 12/22/18 04:00 Respiratory Rate 20 12/22/18 04:00 Blood Pressure 99/57 L 12/22/18 04:00 O2 Sat by Pulse Oximetry (%) 100 12/21/18 23:35 Labs: CBC, BMP 12/22/18 05:30 12/22/18 05:30 INR, PTT INR 1.30 (0.83-1.09) H 12/22/18 05:30
[2018-12-22] MEDS ORDERED: BUPIVACAINE HCL/PF (5 MG/ML) 30 ML VIAL IJ ONE (14:54)
[2018-12-22] MEDS ORDERED: BUPIVACAINE LIPOSOME/PF (EXPAREL) 266 MG/20 ML VIAL NR ONE ×3 (16:00→19:29)
[2018-12-22] MEDS ORDERED: BACITRACIN 50,000 UNITS VIAL TP ONE ×2 (18:12)
[2018-12-22 18:47] LABS: HEMATOCRIT 30.4 % (35.4-49); HEMOGLOBIN 10.5 GM/dL (11.7-16.9); MCH 33.3 pg (25.7-33.7); MCHC 34.6 g/dl (32.0-35.9); MEAN CELL VOLUME 96.4 fl (80-96); MEAN PLT VOLUME 6.8 fl (7.5-11.1); PLATELET COUNT 273 K/MM3 (134-434); RBC 3.16 M/mm3 (4.00-5.60); RDW 16.2 % (11.9-15.9); WHITE BLOOD COUNT 11.7 K/mm3 (4.0-10.0)
[2018-12-22] MEDS ORDERED: BUPIVACAINE HCL/PF 0.25% (2.5MG/ML) 10 ML VIAL IJ ONE (18:50)
[2018-12-22] MEDS ORDERED: ONDANSETRON 4 MG/2 ML VIAL IVPUSH PRN (19:07)
[2018-12-22] MEDS ORDERED: HEPARIN NA (PORCINE) 5,000 UNITS/ML 1ML VIAL SQ SCH ×3 (19:15→22:00)
--- NOTE | 2018-12-22 19:28 | OP ---
Operative Note - Note: Operative Date: 12/22/18 Operation: removal of hardware from C2-C7, laminectomy C2-T1 with posterior fusion of C2-T1. removal of hardware from L3-S1(retained screw at Right S1) lamienctomy of L1/L2 and L2/L3 posterior fusion of L1 thru S1, repair of durotomy and cage placment L2-L3 Surgeon: Buzz Taylor Children[employer] Tutor Nursery: Gladys Lowery Anesthesiologist/SALES LEADER: Arron Cantrell Anesthesia: General Estimated Blood Loss (mls): 1,800 Drains, Volume Out (mls): 500 (cintron) Blood Volume Replaced (mls): 5 (5 units PRBC) Fluid Volume Replaced (mls): 6,500 (1500NS/5000LR) Operative Report Dictated: Yes
[2018-12-22] MEDS ORDERED: ACETAMINOPHEN 325 MG TABLET (FP) PO PRN (19:29)
[2018-12-22] MEDS ORDERED: ZOLPIDEM TARTRATE 5 MG TABLET PO PRN (19:29)
[2018-12-22] MEDS ORDERED: METHOCARBAMOL 750 MG TABLET PO PRN (19:29)
[2018-12-22] MEDS ORDERED: METOPROLOL TARTRATE 5 MG/5 ML VIAL IVPUSH SCH (19:45)
[2018-12-22] MEDS: LACTATED RINGERS SOLUTION 1,000 ML/1,000 ML INFUS.BAG IV SCH (19:50)
[2018-12-22] MEDS ORDERED: fentaNYL CITRATE 250 MCG/5 ML VIAL ONE (19:55)
[2018-12-22] MEDS ORDERED: MIDAZOLAM 100 MG/100 ML MG IVPB ONE (19:56)
[2018-12-22] MEDS: FENTANYL INJECTION 500 MCG in DEXTROSE 5%-WATER - 90 ML IVPB SCH (20:00)
[2018-12-22] MEDS: MIDAZOLAM 100 MG in SODIUM CHLORIDE 100 ML IVPB SCH (20:00)
--- NOTE | 2018-12-22 20:43 | CONSULT ---
Consultation: CONSULT REQUEST: We have been asked to medically evaluate this patient for ( post op care in ICU). HISTORY OF PRESENT ILLNESS: History obtained from the chart. Patient is currently intubated post op. Patient is a 73 year old male presented to the ED for admission for medical optimization/anticoagulation management for planned neurosurgery. Patient has had multiple cervical and lumbar surgeries (4-5) in a period of 10 years. Patient started having worsening of his symptoms with weakness and worsening neuropathy bilaterally in both upper and lower extremities limiting his ambulation but no h/o urinary or bowel incontinence. Hence came in for an elective back surgery. Patient was recently admitted at [facility] on 11/20/18 for chest pain with shortness of breath with troponin elevations. CTA was done and PE ruled out last admission. Patient also had extensive cardiac work up, had an ECHO and stress test which was negative, normal perfusion. Also was found to have New onset afib, was started on eliquis. Plavix was discontinued as PCI was done a year ago, eliquis was continued for Afib. This admission, prior to an elective neurosurgery, Eliquis was stopped 3 days prior to surgery, on Lovenox and aspirin last dose yesterday, as per cardio. Evaluated the patient post op. Patient is Intubated and Sedated. Has allergies to Propofol, started on Fentanyl and Versed Drip. During the surgery patient had 1800 ml of blood loss. 5 Units of PRBC was given intraoperatively. Patient is now being admitted in ICU for further evaluation and management. Past Medical History: CAD, HTN, Hyperlipidemia, Chronic diastolic heart failure , Pulmonary HTN, PSVT, COPD, Prostate cancer, Anemia, GERD, Gout, Rheumatoid arthritis, Peripheral neuropathy, Chronic neck and back pain Allergies: Propofol, Gentamycin, Ketorolac Surgical History: Prostatectomy; Multiple neck surgeries; Lumbar surgery; Right ankle surgery secondary to trauma; PCI with stent LAD 11/30 at [facility]. Social history: Smoking: Quit 50 years ago Alcohol: Several drinks (scotch) per week Drugs: Denies Family History: Non contributory. REVIEW OF SYSTEMS: Couldn't be obtained. PHYSICAL EXAMINATION Vital Signs - 24 hr 12/21/18 12/21/18 12/22/18 23:35 23:36 04:00 Pulse Rate 81 75 Respiratory 20 20 20 Rate Blood Pressure 113/65 99/57 L O2 Sat by Pulse 100 Oximetry (%) GENERAL: Intubated and Sedated. Has a cfoley catheter, A line, Right central line. NECK: Cervical support in place. LUNGS: B/L coarse breath sounds, no wheeze. HEART: Tachycardic, Irregularly irregular rate and rhythm, normal S1 and S2 with systolic murmur. ABDOMEN: Soft, nontender, hypoactive bowel sounds. MUSCULOSKELETAL: Surgical dressing in place. [address] UPPER EXTREMITIES: No peripheral edema. LOWER EXTREMITIES: No peripheral edema. NEUROLOGICAL: Intubated and Sedated. SKIN: No ulcers or rashes. Laboratory Results - last 24 hr 12/21/18 12/22/18 12/22/18 08:30 05:30 05:30 WBC 8.1 RBC 2.54 L Hgb 8.7 L Hct 25.7 L MCV 101.1 H MCH 34.2 H MCHC 33.8 RDW 14.2 Plt Count 304 MPV 7.1 L Absolute Neuts (auto) 4.5 Neutrophils % 55.7 Lymphocytes % 27.1 D Monocytes % 10.3 H Eosinophils % 6.4 H Basophils % 0.5 Nucleated RBC % 0 PT with INR 15.40 H INR 1.30 H PTT (Actin FS) 31.5 Sodium Potassium Chloride Carbon Dioxide Anion Gap BUN Creatinine Creat Clearance w eGFR Random Glucose Calcium Blood Type O POSITIVE Antibody Screen Negative Crossmatch See Detail Crossmatch IS Only See Detail 12/22/18 12/22/18 05:30 18:30 WBC 11.7 H RBC 3.16 L Hgb 10.5 L Hct 30.4 L D MCV 96.4 H MCH 33.3 MCHC 34.6 RDW 16.2 H Plt Count 273 MPV 6.8 L Absolute Neuts (auto) Neutrophils % Lymphocytes % Monocytes % Eosinophils % Basophils % Nucleated RBC % PT with INR INR PTT (Actin FS) Sodium 141 Potassium 3.8 Chloride 108 H Carbon Dioxide 29 Anion Gap 5 L BUN 16 Creatinine 0.6 Creat Clearance w eGFR > 60 Random Glucose 70 L Calcium 8.1 L Blood Type Antibody Screen Crossmatch Crossmatch IS Only Active Medications Generic Name Dose Route Start Last Admin Trade Name Freq PRN Reason Stop Dose Admin Acetaminophen 1,000 mg 12/22/18 19:32 Ofirmev Injection - IVPB Q6H PRN PAIN LEVEL 1 - 3 Aspirin 81 mg 12/23/18 10:00 Asa - PO DAILY [facility] Chlorhexidine Gluconate 1 applic 12/22/18 22:00 Hibiclens For Decolonization - TP HS [facility] Heparin Sodium (Porcine) 5,000 unit 12/22/18 22:00 Heparin - SQ TID [facility] Cefazolin Sodium 1 gm in 50 mls @ 100 mls/hr 12/23/18 02:00 Ancef 1 Gm Premixed Ivpb - IVPB Q8H-IV [facility] Lactated Ringer's 1,000 ml in 1,000 mls @ 125 mls/hr 12/22/18 19:15 Lactated Ringers Solution IV ASDIR [facility] Midazolam HCl 100 mg/ Sodium 100 mls @ 1 mls/hr 12/22/18 20:00 Chloride IVPB 12/23/18 19:59 TITR [facility] Protocol 1 MG/HR Fentanyl 500 mcg/ Dextrose 100 mls @ 10 mls/hr 12/22/18 20:00 IVPB 12/23/18 19:59 TITR [facility] 50 MCG/HR Metoprolol Tartrate 5 mg 12/22/18 19:45 Lopressor Injection - IVPUSH Q6H [facility] Mupirocin 1 applic 12/22/18 22:00 Bactroban Ointment (For Decolonization) - NS 12/27/18 21:59 BID [facility] Non-Formulary Medication 145 mcg 12/23/18 10:00 Linaclotide [Linzess] PO DAILY [facility] Ondansetron HCl 4 mg 12/22/18 19:07 Zofran Injection IVPUSH Q6H PRN [facility] Pantoprazole Sodium 40 mg 12/23/18 10:00 Protonix Iv IVPUSH DAILY [facility] IMAGING: On 11/24/18 pt underwent Lexiscan MIBI which demonstrated no ischemic changes with stress, Occ PVCs, no significant arrhythmias. ECHO 11/24/18: Moderate Asymmetric LVH. LA is severely dilated, mod MR, moderate pHTN, LV systolic function is normal and there is pleural effusion present. 11/20/18 Stress test: Dilated left ventricle at baseline. Normal perfusion. MRI of C-spine (10/2017) showed multilevel anterior and posterior cervical spine surgery, moderate probable extruded broad-based C6-C7 disc herniation - MRI of L-spine (10/2017) showed L1-L2 moderate degenerative disc disease with residual minimal disc bulge slightly to moderately narrowing the foramina; L2- L3 moderate degenerative disc disease with mild to moderate left paracentral disc herniation impinging the exiting left L3 nerve root and L2 nerve root in foramen, anterior epidural density resulting in moderately severe canal stenosis ; L5-S1 mild broad-based disc bulge reaching both L5 nerve roots ASSESSMENT/PLAN: Patient is a 73 year old male with significant Past medical history of CAD s/p stents in LAD 11/30, HTN, Hyperlipidemia, Chronic diastolic heart failure, Pulmonary HTN, PSVT, COPD, Prostate cancer, Anemia, GERD, Gout, Rheumatoid arthritis, Peripheral neuropathy, Chronic neck and back pain presented to the ED for admission for medical optimization/anticoagulation management for planned neurosurgery. 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 [place] in place: 500 ml + 50cc in PACU On IV Versed drip and Fentanyl Drip. Patient is Allergic to PROPOFOL Cefazolin 4 doses to be given prophylactically. Patient received 5 Units of PRBC. Post transfusion H/H 10.5/30.4 from 8.7/ 25.7. repeat CBC q6H. next CBC and coags at midnight CT cervical and lumbar spine done post op. Official report pending. # CAD s/p PCI/stent to LAD in 11/2017 at [facility] Continue Aspirin 81 mg starting tomorrow. # Newly diagnosed atrial fibrillation CHADsVASc score 4. Was on Eliquis at home. Stopped 3 days ago, was started on Lovenox, last dose yesterday. Plavix discontinued as stent was placed a year ago Restart ac as per Dr. De Leon # Hypertension Continue Metoprolol XL # Hyperlipidemia Continue lipitor when able # Chronic diastolic heart failure- not in exacerbation # Pulmonary HTN # PSVT Continue Toprol XL # COPD-not in exacerbation # BPH, prostate cancer, history of prostatectomy with urinary incontinence Continue Flomax when able # Macrocytic Anemia Prior workup has revealed normal Iron studies, normal B12, high folate Continue Ferrous sulfate, folic acid when able # GERD IV Protonix 40mg daily # History of gout Continue Uloric when able # Rheumatoid arthritis # Chronic constipation, opioid-induced Continue Linzess, Movantik when able # FEN IV LR @ 125 mls.hr Electrolytes to be repeated in AM NPO # Prophylaxis For DVT: SCDs, no chemical prophylaxis, as per neurosurg For GI: IV Protonix 40mg Daily # Code Status: Full Code Dispo: We will continue to follow the patient. Thank you for this consultative opportunity. Visit type - Emergency Visit Emergency Visit: Yes ED Registration Date: 12/18/18 Care time: The patient presented to the Emergency Department on the above date and was hospitalized for further evaluation of their emergent condition. - New Patient This patient is new to me today: Yes Date on this admission: 12/22/18 - Critical Care Critical Care patient: Yes Total Critical Care Time (in minutes): 35 Critical Care Statement: The care of this patient involved high complexity decision making to prevent further life threatening deterioration of the patient 's condition and/or to evaluate & treat vital organ system(s) failure or risk of failure.
[2018-12-22 21:32] LABS: ANION GAP 6 MMOL/L (8-16); BLOOD UREA NITROGEN 17 mg/dL (7-18); CALCIUM 7.2 mg/dL (8.5-10.1); CHLORIDE 112 mmol/L (98-107); CO2 24 mmol/L (21-32); CREATININE 0.8 mg/dL (0.55-1.3); GLUCOSE,RANDOM 138 mg/dL (74-106); SODIUM 141 mmol/L (136-145)
[2018-12-22] MEDS ORDERED: MONTELUKAST NA 10 MG TABLET PO SCH (22:00)
[2018-12-22] MEDS ORDERED: ATORVASTATIN CA 40 MG TABLET (FP) PO SCH (22:00)
[2018-12-22] MEDS ORDERED: GABAPENTIN 300 MG CAPSULE (FP) PO SCH (22:00)
[2018-12-22] MEDS ORDERED: DOCUSATE SODIUM 100 MG CAPSULE (FP) PO SCH (22:00)
[2018-12-22] MEDS: CHLORHEXIDINE GLUCONATE 4% CLEANSER FOR DECOLONIZATION TP SCH (22:05)
[2018-12-22] MEDS: MUPIROCIN 2% TOPICAL OINTMENT FOR DECOLONIZATION NS SCH (22:05)
[2018-12-22] MEDS ORDERED: METOPROLOL TARTRATE 5 MG/5 ML VIAL IVPUSH PRN (22:10)
--- NOTE | 2018-12-22 22:51 | PN ---
Progress Note, Physician - Current Medication List Current Medications: Active Medications Acetaminophen (Ofirmev Injection -) 1,000 mg IVPB Q6H PRN PRN Reason: PAIN LEVEL 1 - 3 Aspirin (Asa -) 81 mg PO DAILY [facility] Chlorhexidine Gluconate (Hibiclens For Decolonization -) 1 applic TP HS [facility] Last Admin: 12/22/18 22:05 Dose: 1 applic Fentanyl (Sublimaze Injection -) 50 mcg IVPUSH [id number] PRN PRN Reason: PAIN-PACU ORDER X 4 DOSES ONLY Stop: 12/23/18 06:00 Cefazolin Sodium (Ancef 1 Gm Premixed Ivpb -) 1 gm in 50 mls @ 100 mls/hr IVPB Q8H-IV [facility] Lactated Ringer's (Lactated Ringers Solution) 1,000 ml in 1,000 mls @ 125 mls/ hr IV ASDIR [facility] Last Admin: 12/22/18 19:50 Dose: 245 mls Midazolam HCl 100 mg/ Sodium (Chloride) 100 mls @ 1 mls/hr IVPB TITR [facility]; Protocol Stop: 12/23/18 19:59 Last Admin: 12/22/18 20:00 Dose: 7 mls Fentanyl 500 mcg/ Dextrose 100 mls @ 10 mls/hr IVPB TITR [facility] Stop: 12/23/18 19:59 Last Admin: 12/22/18 20:00 Dose: 15 mls Metoprolol Tartrate (Lopressor Injection -) 5 mg IVPUSH Q6H PRN PRN Reason: TACHYCARDIA (HR > 120) Mupirocin (Bactroban Ointment (For Decolonization) -) 1 applic NS BID [facility] Stop: 12/27/18 21:59 Last Admin: 12/22/18 22:05 Dose: 1 applic Non-Formulary Medication (Linaclotide [Linzess]) 145 mcg PO DAILY [facility] Ondansetron HCl (Zofran Injection) 4 mg IVPUSH Q6H PRN PRN Reason: NAUSEA Pantoprazole Sodium (Protonix Iv) 40 mg IVPUSH DAILY [facility] - Objective Vital Signs: Vital Signs Temperature 98.3 F 12/22/18 21:00 Pulse Rate 92 H 12/22/18 21:00 Respiratory Rate 14 12/22/18 21:00 Blood Pressure 136/80 12/22/18 21:00 O2 Sat by Pulse Oximetry (%) 100 12/22/18 21:00 Labs: CBC, BMP 12/22/18 18:30 12/22/18 20:48 INR, PTT INR 1.30 (0.83-1.09) H 12/22/18 05:30 Problem List - Problems (1) Back pain Assessment/Plan: 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, laminectomy C2-T1 with posterior fusion of C-T1, removal of hardware from L3-S1 (retained screw at right S1) laminectomy of L1/L2 and L2/L3 posterior fusion of L1 through S1, repair of durotomy and cage placement L2-L3 Pt remains intubated pot-op and is now in ICU Cont IV fluids/cintron Cont IV cefazolin F/U ct scan cervical/lumbar spine post-op Pt transfused 5 units PRBC's during surgery Code(s): M54.9 - DORSALGIA, UNSPECIFIED (2) Anemia Assessment/Plan: Monitor H/H Serial CBC Code(s): D64.9 - ANEMIA, UNSPECIFIED (3) Paroxysmal atrial fibrillation Assessment/Plan: AC on hold Restart as per neurosurgery Heart rate controlled Code(s): I48.0 - PAROXYSMAL ATRIAL FIBRILLATION (4) CAD (coronary artery disease) Assessment/Plan: Plavix was stopped Pt had been on it for a yr s/p stent placement Code(s): I25.10 - ATHSCL HEART DISEASE OF [place] CORONARY ARTERY W/O ANG PCTRS Qualifiers: Coronary Disease-Associated Artery/Lesion type: [place] artery [place] vs. transplanted heart: [place] heart Associated angina: without angina Qualified Code(s): I25.10 - Atherosclerotic heart disease of [place] coronary artery without angina pectoris (5) GERD (gastroesophageal reflux disease) Code(s): K21.9 - GASTRO-ESOPHAGEAL REFLUX DISEASE WITHOUT ESOPHAGITIS (6) HLD (hyperlipidemia) Code(s): E78.5 - HYPERLIPIDEMIA, UNSPECIFIED (7) HTN (hypertension) Code(s): I10 - ESSENTIAL (PRIMARY) HYPERTENSION Qualifiers: Hypertension type: essential hypertension Qualified Code(s): I10 - Essential (primary) hypertension (8) Hx of heart artery stent Code(s): Z95.5 - PRESENCE OF CORONARY ANGIOPLASTY IMPLANT AND GRAFT (9) COPD (chronic obstructive pulmonary disease) Code(s): J44.9 - CHRONIC OBSTRUCTIVE PULMONARY DISEASE, UNSPECIFIED (10) Congestive heart failure Code(s): I50.9 - HEART FAILURE, UNSPECIFIED Qualifiers: Heart failure type: unspecified Heart failure chronicity: acute Qualified Code(s): I50.9 - Heart failure, unspecified
[2018-12-22 22:52] LABS: ARTERIAL BLD GAS O2 SATURATION 98.9 % (95-98); ARTERIAL BLOOD GAS BASE EXCESS -2.3 meq/l (-2-2); ARTERIAL BLOOD GAS PCO2 41.5 mmHg (35-45); ARTERIAL BLOOD GAS PO2 147 mmHg (80-105); ARTERIAL BLOOD GAS pH 7.35 (7.35-7.45)
[2018-12-23 00:23] LABS: BASO % 0.1 % (0-2.0); HEMATOCRIT 29.8 % (35.4-49); HEMOGLOBIN 10.3 GM/dL (11.7-16.9); LYMPH % 6.4 % (8-40); MCH 33.1 pg (25.7-33.7); MCHC 34.5 g/dl (32.0-35.9); MONO % 6.2 % (3.8-10.2); NEUT % 87.3 % (42.8-82.8); PLATELET COUNT 268 K/MM3 (134-434); RDW 17.3 % (11.9-15.9); WHITE BLOOD COUNT 17.3 K/mm3 (4.0-10.0)
[2018-12-23] MEDS ORDERED: fentaNYL CITRATE 250 MCG/5 ML VIAL ONE ×2 (00:39→15:15)
[2018-12-23 00:42] LABS: INR 1.32 (0.83-1.09); PROTHROMBIN TIME (PATIENT) 15.6 SEC (9.7-13.0)
[2018-12-23] MEDS: CEFAZOLIN 1 GM/D5W 1 GM/50 ML BAG IVPB SCH ×3 (01:24→17:44)
[2018-12-23] MEDS: MIDAZOLAM 100 MG in SODIUM CHLORIDE 100 ML IVPB SCH ×3 (05:11→18:55)
[2018-12-23] MEDS: FENTANYL INJECTION 500 MCG in DEXTROSE 5%-WATER - 90 ML IVPB SCH (05:11)
[2018-12-23] MEDS ORDERED: MIDAZOLAM 100 MG/100 ML MG IVPB ONE ×2 (05:14→18:53)
[2018-12-23] MEDS: LACTATED RINGERS SOLUTION 1,000 ML/1,000 ML INFUS.BAG IV SCH ×2 (05:18→15:00)
[2018-12-23 06:08] LABS: HEMOGLOBIN 10.3 GM/dL (11.7-16.9); MCH 32.8 pg (25.7-33.7); MCHC 34.4 g/dl (32.0-35.9); MEAN CELL VOLUME 95.5 fl (80-96); PLATELET COUNT 275 K/MM3 (134-434); RBC 3.14 M/mm3 (4.00-5.60); RDW 17.4 % (11.9-15.9); WHITE BLOOD COUNT 18.1 K/mm3 (4.0-10.0)
[2018-12-23 06:25] LABS: ARTERIAL BLD GAS O2 SATURATION 98.5 % (95-98); ARTERIAL BLOOD GAS PCO2 44.4 mmHg (35-45); ARTERIAL BLOOD GAS PO2 129 mmHg (80-105); ARTERIAL BLOOD GAS pH 7.35 (7.35-7.45)
[2018-12-23 06:26] LABS: INR 1.27 (0.83-1.09)
[2018-12-23 06:37] LABS: ANION GAP 4 MMOL/L (8-16); BLOOD UREA NITROGEN 20 mg/dL (7-18); CALCIUM 7.6 mg/dL (8.5-10.1); CHLORIDE 111 mmol/L (98-107); CO2 26 mmol/L (21-32); CREATININE 0.6 mg/dL (0.55-1.3); GLUCOSE,RANDOM 107 mg/dL (74-106); MAGNESIUM 1.5 mg/dL (1.8-2.4); POTASSIUM 4.7 mmol/L (3.5-5.1); SODIUM 141 mmol/L (136-145)
[2018-12-23] MEDS ORDERED: MAGNESIUM 2GM/50ML STERILE WATER IVPB IVPB ONE (06:49)
--- NOTE | 2018-12-23 07:39 | PN ---
Physical Exam: SUBJECTIVE: Patient seen and examined at bedside. S/p 5U pRBC. No acute events overnight. Currently intubated and sedated. OBJECTIVE: Vital Signs Period Temp Pulse Resp BP Sys/Dyson Pulse Ox Last 24 Hr 97.8 F-98.5 F 92-114 12-20 101-150/55-97 100-100 GENERAL: Intubated and sedated. HEENT: AT/NC. Dry mucus membranes. NECK: Neck collar in place. LUNGS: B/l rhonchi. Mechanically ventilated. HEART: Irregularly irregular. No murmurs noted. ABDOMEN: Soft, NT/ND. Hypoactive BS. No masses noted. EXTREMITIES: Cool u/l b/l extremities. No peripheral edema noted. R ankle deformity. MSK: MARY drains x2 in place, serosanguinous fluid Laboratory Results - last 24 hr 12/21/18 12/22/18 12/22/18 08:30 18:30 20:48 WBC 11.7 H RBC 3.16 L Hgb 10.5 L Hct 30.4 L D MCV 96.4 H MCH 33.3 MCHC 34.6 RDW 16.2 H Plt Count 273 MPV 6.8 L Absolute Neuts (auto) Neutrophils % Lymphocytes % Monocytes % Eosinophils % Basophils % Nucleated RBC % PT with INR INR Anticoagulation Therapy Puncture Site ABG pH ABG pCO2 at Pt Temp ABG pO2 at Pt Temp ABG HCO3 ABG O2 Sat (Measured) ABG O2 Content ABG Base Excess Willy Test O2 Delivery Device Oxygen Flow Rate Vent Mode Vent Rate Mechanical Rate PEEP Pressure Support Vent Sodium 141 Potassium 5.0 Chloride 112 H Carbon Dioxide 24 Anion Gap 6 L BUN 17 Creatinine 0.8 Creat Clearance w eGFR > 60 Random Glucose 138 H Calcium 7.2 L Phosphorus Magnesium Blood Type O POSITIVE Antibody Screen Negative Crossmatch See Detail Crossmatch IS Only See Detail 12/22/18 12/23/18 12/23/18 22:40 00:01 00:01 WBC 17.3 H RBC 3.10 L Hgb 10.3 L Hct 29.8 L MCV 96.0 MCH 33.1 MCHC 34.5 RDW 17.3 H Plt Count 268 MPV 7.0 L Absolute Neuts (auto) 15.1 H Neutrophils % 87.3 H D Lymphocytes % 6.4 L D Monocytes % 6.2 Eosinophils % 0.0 D Basophils % 0.1 Nucleated RBC % 0 PT with INR 15.60 H INR 1.32 H Anticoagulation Therapy Puncture Site Arterial line ABG pH 7.35 ABG pCO2 at Pt Temp 41.5 ABG pO2 at Pt Temp 147 H ABG HCO3 22.5 ABG O2 Sat (Measured) 98.9 H ABG O2 Content 13.5 L ABG Base Excess -2.3 L Willy Test No Result Required. O2 Delivery Device Oxygen Flow Rate No Result Required. Vent Mode Vent Rate Mechanical Rate PEEP Pressure Support Vent Sodium Potassium Chloride Carbon Dioxide Anion Gap BUN Creatinine Creat Clearance w eGFR Random Glucose Calcium Phosphorus Magnesium Blood Type Antibody Screen Crossmatch Crossmatch IS Only 12/23/18 12/23/18 12/23/18 05:30 05:30 05:30 WBC 18.1 H RBC 3.14 L Hgb 10.3 L Hct 30.0 L MCV 95.5 MCH 32.8 MCHC 34.4 RDW 17.4 H Plt Count 275 MPV 7.0 L Absolute Neuts (auto) Neutrophils % Lymphocytes % Monocytes % Eosinophils % Basophils % Nucleated RBC % PT with INR 15.00 H INR 1.27 H Anticoagulation Therapy Puncture Site ABG pH ABG pCO2 at Pt Temp ABG pO2 at Pt Temp ABG HCO3 ABG O2 Sat (Measured) ABG O2 Content ABG Base Excess Willy Test O2 Delivery Device Oxygen Flow Rate Vent Mode Vent Rate Mechanical Rate PEEP Pressure Support Vent Sodium 141 Potassium 4.7 Chloride 111 H Carbon Dioxide 26 Anion Gap 4 L BUN 20 H Creatinine 0.6 Creat Clearance w eGFR > 60 Random Glucose 107 H Calcium 7.6 L Phosphorus 4.0 Magnesium 1.5 L Blood Type Antibody Screen Crossmatch Crossmatch IS Only 12/23/18 06:00 WBC RBC Hgb Hct MCV MCH MCHC RDW Plt Count MPV Absolute Neuts (auto) Neutrophils % Lymphocytes % Monocytes % Eosinophils % Basophils % Nucleated RBC % PT with INR INR Anticoagulation Therapy No Result Required. Puncture Site Arterial line ABG pH 7.35 ABG pCO2 at Pt Temp 44.4 ABG pO2 at Pt Temp 129 H ABG HCO3 24.0 ABG O2 Sat (Measured) 98.5 H ABG O2 Content 13.6 L ABG Base Excess -1.0 Willy Test No Result Required. O2 Delivery Device No Result Required. Oxygen Flow Rate 40% Vent Mode A/c Vent Rate 11 Mechanical Rate No Result Required. PEEP 5.0 Pressure Support Vent 600 Sodium Potassium Chloride Carbon Dioxide Anion Gap BUN Creatinine Creat Clearance w eGFR Random Glucose Calcium Phosphorus Magnesium Blood Type Antibody Screen Crossmatch Crossmatch IS Only Active Medications Acetaminophen (Ofirmev Injection -) 1,000 mg IVPB Q6H PRN PRN Reason: PAIN LEVEL 1 - 3 Chlorhexidine Gluconate (Hibiclens For Decolonization -) 1 applic TP HS [facility] Last Admin: 12/22/18 22:05 Dose: 1 applic Heparin Sodium (Porcine) (Heparin -) 5,000 unit SQ TID [facility] Cefazolin Sodium (Ancef 1 Gm Premixed Ivpb -) 1 gm in 50 mls @ 100 mls/hr IVPB Q8H-IV [facility] Last Admin: 12/23/18 09:38 Dose: 100 mls/hr Lactated Ringer's (Lactated Ringers Solution) 1,000 ml in 1,000 mls @ 125 mls/ hr IV ASDIR [facility] Last Admin: 12/23/18 05:18 Dose: 125 mls/hr Midazolam HCl 100 mg/ Sodium (Chloride) 100 mls @ 1 mls/hr IVPB TITR [facility]; Protocol Stop: 12/23/18 19:59 Last Admin: 12/23/18 05:16 Dose: 8 mg/hr, 8 mls/hr Fentanyl 500 mcg/ Dextrose 100 mls @ 10 mls/hr IVPB TITR [facility] Stop: 12/23/18 19:59 Last Admin: 12/23/18 05:11 Dose: 50 mcg/hr, 10 mls/hr Metoprolol Tartrate (Lopressor Injection -) 5 mg IVPUSH Q6H PRN PRN Reason: TACHYCARDIA (HR > 120) Mupirocin (Bactroban Ointment (For Decolonization) -) 1 applic NS BID [facility] Stop: 12/27/18 21:59 Last Admin: 12/23/18 10:51 Dose: 1 applic Non-Formulary Medication (Linaclotide [Linzess]) 145 mcg PO DAILY [facility] Ondansetron HCl (Zofran Injection) 4 mg IVPUSH Q6H PRN PRN Reason: NAUSEA Pantoprazole Sodium (Protonix Iv) 40 mg IVPUSH DAILY [facility] Last Admin: 12/23/18 09:38 Dose: 40 mg CONSULT: Cardio- Dr. Gant IMAGING: * Lumbar Spine MRI (12/21/18): The height and alignment of the vertebral bodies remain unremarkable. L5-S1 mild broadbase disc bulge again seen reaching and probably slightly impinging both L5 nerve roots. L2-L3 moderate degenerative disc disease and mild broad-based disc bulge, probably impinging both L2 nerve roots and left L3 nerve root. Previously noted left paracentral disc herniation is not appreciated on this exam. L1-L2 moderately severe degenerative disc disease again seen with interval minimal fluid within the intervertebral disc space, anteriorly likely on the basis of degenerative changes. If clinically concerned correlation with contrast-enhanced MRI of the lumbar spine could be obtained to rule out discitis. Mild broad-based disc bulge again seen likely impinging both L1 nerve roots. * CXR (11/24/18): Internal development of small to mod b/l pleural effusions noted prob on basis of pulm vascular congestion * L-Spine CT: pending final read * C-Spine CT: pending final read Past Imaging * On 11/24/18 pt underwent Lexiscan MIBI which demonstrated no ischemic changes with stress, Occ PVCs, no significant arrhythmias. * ECHO 11/24/18: Moderate Asymmetric LVH. LA is severely dilated, mod MR, moderate pHTN, LV systolic function is normal and there is pleural effusion present. * 11/20/18 Stress test: Dilated left ventricle at baseline. Normal perfusion. * MRI of C-spine (10/2017) showed multilevel anterior and posterior cervical spine surgery, moderate probable extruded broad-based C6-C7 disc herniation * MRI of L-spine (10/2017) showed L1-L2 moderate degenerative disc disease with residual minimal disc bulge slightly to moderately narrowing the foramina; L2- L3 moderate degenerative disc disease with mild to moderate left paracentral disc herniation impinging the exiting left L3 nerve root and L2 nerve root in foramen, anterior epidural density resulting in moderately severe canal stenosis ; L5-S1 mild broad-based disc bulge reaching both L5 nerve roots ASSESSMENT/PLAN: 73M with significant pmhx of CAD s/p stents in LAD 11/30, HTN, Hyperlipidemia, Chronic diastolic heart failure, Pulmonary HTN, PSVT, COPD, Prostate cancer, Anemia, GERD, Gout, Rheumatoid arthritis, Peripheral neuropathy, Chronic neck and back pain presented to the ED for admission for medical optimization/ anticoagulation management for planned neurosurgery. NEURO #S/p 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, laminectomy C2-T1 with posterior fusion of C-T1, removal of hardware from L3-S1 -Intubated and sedated -Versed 8 mg/h -Fentanyl 50 mcg -Zofran 4 mg Q6H IVP for nausea -IV Tylenol 1000 Q6H PULM #Acute Respiratory Failure; Stable on vent. -Mechanically ventilated: 600/11/40%/5 -Spontaneous breathing trials when mental status improves; will decrease sedation in AM to assess mental status CV #Acute Blood loss -s/p 5U pRBCs given; today H/H stable at 10.3/30. Will recheck CBC today -serial CBCs -Monitor drain output #CAD; s/p LAD stent (2017) -Hold home Plavix for now -Per cardio, hold ASA until tomorrow if clinically stable #Afib -Hold home Eliquis for now -Per cardio, can resume AC after 24 if clinically stable #Chronic Diastolic CHF -Per cardio, can given Lasix 40 mg IVP x1 dose -Hold home Lasix 40 PO QD #HTN/HLD -Metoprolol Tartrate 5 mg IVP Q6H PRN GI #GERD -IV Protonix 40 QD -Cont home meds when able RENAL #BPH, Prostate Cx s/p prostatectomy -Cont home meds when able HEME #Macrocytic Anemia -Cont home meds when able (Ferrous Sulfate, Folic acid) ID -Cefazolin 1 gm IVPB (started 12/22/18), Day 2 while MARY drains still in place per surg ONCOLOGY #Hx of Prostate Cancer; s/p prostatectomy PROPHYLAXIS -SQH/SCDs -Protonix 40 QD IVP FEN -no IVf for now; received Lasix x1 dose -MgSO4 2gm IVPB; recheck lytes in AM (Mg) and replete PRN -NPO LINES -L radial, A line -RIJ central line -MARY drain x2 (upper/lower back) -cintron Dispo -cont to monitor in ICU -full code Visit type - Emergency Visit Emergency Visit: Yes ED Registration Date: 12/18/18 Care time: The patient presented to the Emergency Department on the above date and was hospitalized for further evaluation of their emergent condition. - New Patient This patient is new to me today: Yes Date on this admission: 12/23/18 - Critical Care Critical Care patient: Yes Total Critical Care Time (in minutes): 45 Critical Care Statement: The care of this patient involved high complexity decision making to prevent further life threatening deterioration of the patient 's condition and/or to evaluate & treat vital organ system(s) failure or risk of failure.
[2018-12-23] MEDS ORDERED: TAMSULOSIN HCL 0.4 MG CAP PO SCH (08:30)
[2018-12-23] MEDS ORDERED: FUROSEMIDE 40 MG/4 ML INJECTABLE VIAL IVPUSH ONE (09:05)
--- NOTE | 2018-12-23 09:24 | PN ---
Progress Note, Physician Chief Complaint: seen and examined in ICU POD #1 Op notes reviewed Remains sedated on vent , but is alert and opens eyes to name History of Present Illness: TELE: Reviewed. Episodes of AF into 120s. No sustained Ventricular arrhythmias. No pauses - Current Medication List Current Medications: Active Medications Acetaminophen (Ofirmev Injection -) 1,000 mg IVPB Q6H PRN PRN Reason: PAIN LEVEL 1 - 3 Chlorhexidine Gluconate (Hibiclens For Decolonization -) 1 applic TP HS [facility] Last Admin: 12/22/18 22:05 Dose: 1 applic Enoxaparin Sodium (Lovenox -) 40 mg SQ DAILY [facility] Furosemide (Lasix Injection -) 40 mg IVPUSH ONCE ONE Stop: 12/23/18 09:06 Cefazolin Sodium (Ancef 1 Gm Premixed Ivpb -) 1 gm in 50 mls @ 100 mls/hr IVPB Q8H-IV [facility] Last Admin: 12/23/18 01:24 Dose: 100 mls/hr Lactated Ringer's (Lactated Ringers Solution) 1,000 ml in 1,000 mls @ 125 mls/ hr IV [facility] Last Admin: 12/23/18 05:18 Dose: 125 mls/hr Midazolam HCl 100 mg/ Sodium (Chloride) 100 mls @ 1 mls/hr IVPB TITR [facility]; Protocol Stop: 12/23/18 19:59 Last Admin: 12/23/18 05:16 Dose: 8 mg/hr, 8 mls/hr Fentanyl 500 mcg/ Dextrose 100 mls @ 10 mls/hr IVPB TITR [facility] Stop: 12/23/18 19:59 Last Admin: 12/23/18 05:11 Dose: 50 mcg/hr, 10 mls/hr Metoprolol Tartrate (Lopressor Injection -) 5 mg IVPUSH Q6H PRN PRN Reason: TACHYCARDIA (HR > 120) Mupirocin (Bactroban Ointment (For Decolonization) -) 1 applic NS BID [facility] Stop: 12/27/18 21:59 Last Admin: 12/22/18 22:05 Dose: 1 applic Non-Formulary Medication (Linaclotide [Linzess]) 145 mcg PO DAILY [facility] Ondansetron HCl (Zofran Injection) 4 mg IVPUSH Q6H PRN PRN Reason: NAUSEA Pantoprazole Sodium (Protonix Iv) 40 mg IVPUSH DAILY [facility] - Objective Vital Signs: Vital Signs Temperature 97.8 F 12/23/18 06:00 Pulse Rate 101 H 12/23/18 09:00 Respiratory Rate 12 12/23/18 09:00 Blood Pressure 121/74 12/23/18 09:00 O2 Sat by Pulse Oximetry (%) 100 12/23/18 08:18 Constitutional: Yes: No Distress HENT: Yes: Other (+ ETT) Cardiovascular: Yes: Pulse Irregular Respiratory: Yes: Other (= breath sounds bilaterally) Gastrointestinal: Yes: Soft (NT) Edema: Yes Edema: LLE: 1+, RLE: 1+ Neurological: Yes: Other (sedated on vent) Labs: CBC, BMP 12/23/18 05:30 12/23/18 05:30 INR, PTT INR 1.27 (0.83-1.09) H 12/23/18 05:30 - ....Imaging EKG: Image Reviewed Problem List - Problems (1) Back pain Code(s): M54.9 - DORSALGIA, UNSPECIFIED (2) Paroxysmal atrial fibrillation Code(s): I48.0 - PAROXYSMAL ATRIAL FIBRILLATION (3) CAD (coronary artery disease) Code(s): I25.10 - ATHSCL HEART DISEASE OF [place] CORONARY ARTERY W/O ANG PCTRS Qualifiers: Coronary Disease-Associated Artery/Lesion type: [place] artery [place] vs. transplanted heart: [place] heart Associated angina: without angina Qualified Code(s): I25.10 - Atherosclerotic heart disease of [place] coronary artery without angina pectoris (4) Hx of heart artery stent Code(s): Z95.5 - PRESENCE OF CORONARY ANGIOPLASTY IMPLANT AND GRAFT (5) HTN (hypertension) Code(s): I10 - ESSENTIAL (PRIMARY) HYPERTENSION Qualifiers: Hypertension type: essential hypertension Qualified Code(s): I10 - Essential (primary) hypertension (6) Pulmonary hypertension Code(s): I27.20 - PULMONARY HYPERTENSION, UNSPECIFIED (7) Anticoagulation management encounter Code(s): Z51.81 - ENCOUNTER FOR THERAPEUTIC DRUG LEVEL MONITORING; Z79.01 - [employer] (CURRENT) USE OF ANTICOAGULANTS Assessment/Plan IMP: Intractable neck pain, cervical and lumbar disc disease POD #1 Removal of hardware from C2-C7, laminectomy C2-T1 with posterior fusion of C2-T1. removal of hardware from L3-S1(retained screw at Right S1) lamienctomy of L1/L2 and L2/L3 posterior fusion of L1 thru S1, repair of durotomy and cage placment L2-L3 PHTN- prior asbestos exposure CAD s/p PCI PAF REC: 1. Vent management as per ICU team 2. Would give Lasix 40mg IV x 1 dose today as post op CXR appears slightly volume overloaded. 3. H/H stable. 4. F/u post op CT scan 5. Abx as per Neurosurgery. 6. DVT Prophylaxis 7. Tele in ICU 8. Resume ASA tomorrow if clinically stable. 9. To Resume AC for AF after 24 hours if clinically stable. Will follow.
[2018-12-23] MEDS ORDERED: FUROSEMIDE 40 MG/4 ML INJECTABLE VIAL ONE (09:35)
[2018-12-23] MEDS: PANTOPRAZOLE SODIUM 40 MG VIAL IVPUSH SCH (09:38)
--- NOTE | 2018-12-23 09:44 | PN ---
Progress Note (short form) - Note Progress Note: POD#1 Pt intubated and arousable this am. No acute events noted overnight according to overnight resident/nursing staff. Vital Signs Period Temp Pulse Resp BP Sys/Dyson Pulse Ox Last 24 Hr 97.8 F-98.5 F 92-114 12-20 101-150/55-97 100-100 MARY-cervical 80 ml, bloody Lower back- 235 ml bloody FC-900ml GEN: intubated, arousable CV: RRR Lungs: Cta b/l anterior ABD: soft, non-distended, non-tender LE: SCDs in place Back: Dressing c/d/i to neck and lower back CBC, BMP 12/23/18 05:30 12/23/18 05:30 A/P: 73 yo male s/p C2-C7 revision with hardware removal/replacement and posteior fusion of C2-T1. L3-S1 revision with hardware removal/replacment and L1 -L3 lamintectomy and posterior fusion L1-S1 Continue supportive care Maintian cervcial collar at all times, MARY to bulb suction IV abx kefzol to continue while MARY in place Spoke with cardiology and will hold aspirin/lovenox for now. May continue heparin SQ DVT ppx Spoke with ICU staff, plan to keep pt intubated today. IV lasix given, he usually take 40mg oral daily D/w Dr. Taylor
--- NOTE | 2018-12-23 09:58 | PN ---
Progress Note (short form) - Note Progress Note: Anesthesiology: POD #1 - s/p cervical and lumbar laminectomy with instrumentation. VSS. Pt. remains intubated and sedated post-op. No apparent anesthetic complications noted. Continue current care.
[2018-12-23] MEDS ORDERED: FUROSEMIDE 40 MG TABLET (FP) PO SCH (10:00)
[2018-12-23] MEDS ORDERED: PANTOPRAZOLE 20 MG TABLET (FP) PO SCH (10:00)
[2018-12-23] MEDS ORDERED: PATIENT'S OWN MEDICATION (NON-FORMULARY) (Linaclotide [Linzess] 145 MCG) PO SCH (10:00)
[2018-12-23] MEDS ORDERED: FERROUS SO4 325 MG TABLET (FP) PO SCH (10:00)
[2018-12-23] MEDS ORDERED: FOLIC ACID 1 MG TABLET (FP) PO SCH (10:00)
[2018-12-23] MEDS ORDERED: NORTRIPTYLINE HCL 10 MG CAPSULE PO SCH (10:00)
[2018-12-23] MEDS ORDERED: ASPIRIN 81 MG CHEWABLE TABLETS PO SCH (10:00)
[2018-12-23] MEDS ORDERED: ENOXAPARIN NA (PORCINE) 40 MG/0.4 ML DISP.SYRIN SQ SCH (10:00)
[2018-12-23] MEDS ORDERED: FEBUXOSTAT 40 MG TAB PO SCH (10:00)
--- NOTE | 2018-12-23 10:07 | EKG ---
Test Reason : Blood Pressure : / mmHG Vent. Rate : 093 BPM Atrial Rate : 288 BPM P-R Int : 000 ms QRS Dur : 100 ms QT Int : 362 ms P-R-T Axes : 000 -05 000 degrees QTc Int : 450 ms ATRIAL FIBRILLATION LOW VOLTAGE QRS NONSPECIFIC T WAVE ABNORMALITY ABNORMAL ECG WHEN COMPARED WITH ECG OF 18-DEC-2018 09:25, QT HAS SHORTENED Confirmed by RAMIN TREJO, POLO ([id number]) on 12/23/2018 10:07:47 AM Referred By: Confirmed By:POLO FAUSTIN MD
[2018-12-23] MEDS: MUPIROCIN 2% TOPICAL OINTMENT FOR DECOLONIZATION NS SCH ×2 (10:51→21:04)
--- NOTE | 2018-12-23 10:55 | PN ---
Teaching Attending Note Name of Resident: Veronica Meredith ATTENDING PHYSICIAN STATEMENT I saw and evaluated the patient. I reviewed the resident's note and discussed the case with the resident. I agree with the resident's findings and plan as documented. SUBJECTIVE: Pt seen and examined in the ICU. s/p CHELE C2-T1/L3-S1/Laminectomy/L1-S1 Posterior Fusion/Cage Placement/Durotomy repair with EBL 1800. Received 5 units PRBC. Remains intubated on volume assist control. No pressors. OBJECTIVE: Vital Signs Period Temp Pulse Resp BP Sys/Dyson Pulse Ox Last 24 Hr 97.8 F-98.5 F 92-114 12-20 101-150/55-97 100-100 Intake & Output 12/20/18 12/21/18 12/22/18 12/23/18 23:59 23:59 23:59 23:59 Intake Total 350 8567 1124 Output Total 2710 505 Balance 350 5857 619 Weight 88.405 kg Gen: intubated, sedated Heart: RRR Lung: scattered rhonchi Abd: soft, nontender Ext: no edema Drains with serosanguinous fluid CBC, BMP 12/23/18 05:30 12/23/18 05:30 Active Medications Acetaminophen (Ofirmev Injection -) 1,000 mg IVPB Q6H PRN PRN Reason: PAIN LEVEL 1 - 3 Chlorhexidine Gluconate (Hibiclens For Decolonization -) 1 applic TP HS [facility] Last Admin: 12/22/18 22:05 Dose: 1 applic Heparin Sodium (Porcine) (Heparin -) 5,000 unit SQ TID [facility] Cefazolin Sodium (Ancef 1 Gm Premixed Ivpb -) 1 gm in 50 mls @ 100 mls/hr IVPB Q8H-IV [facility] Last Admin: 12/23/18 09:38 Dose: 100 mls/hr Lactated Ringer's (Lactated Ringers Solution) 1,000 ml in 1,000 mls @ 125 mls/ hr IV ASDIR [facility] Last Admin: 12/23/18 05:18 Dose: 125 mls/hr Midazolam HCl 100 mg/ Sodium (Chloride) 100 mls @ 1 mls/hr IVPB TITR [facility]; Protocol Stop: 12/23/18 19:59 Last Admin: 12/23/18 05:16 Dose: 8 mg/hr, 8 mls/hr Fentanyl 500 mcg/ Dextrose 100 mls @ 10 mls/hr IVPB TITR [facility] Stop: 12/23/18 19:59 Last Admin: 12/23/18 05:11 Dose: 50 mcg/hr, 10 mls/hr Metoprolol Tartrate (Lopressor Injection -) 5 mg IVPUSH Q6H PRN PRN Reason: TACHYCARDIA (HR > 120) Mupirocin (Bactroban Ointment (For Decolonization) -) 1 applic NS BID [facility] Stop: 12/27/18 21:59 Last Admin: 12/23/18 10:51 Dose: 1 applic Non-Formulary Medication (Linaclotide [Linzess]) 145 mcg PO DAILY [facility] Ondansetron HCl (Zofran Injection) 4 mg IVPUSH Q6H PRN PRN Reason: NAUSEA Pantoprazole Sodium (Protonix Iv) 40 mg IVPUSH DAILY [facility] Last Admin: 12/23/18 09:38 Dose: 40 mg ASSESSMENT AND PLAN: s/p CHELE C2-T1/L3-S1/Laminectomy/L1-S1 Posterior Fusion/Cage Placement/Durotomy repair Acute Respiratory Failure Acute Blood Loss Anemia CAD Atrial Fibrillation LV Diastolic Dysfunction COPD Rheumatoid Arthritis HTN Hyperlipidemia h/o Prostate Ca - monitor H/H - transfuse as needed - monitor drain output - lasix today - monitor urine output, creatinine - empiric antibiotics - rate control - resume anticoagulation when ok with surgery - lighten sedation in AM to assess mental status - spontaneous breathing trials as tolerated when mental status improved - DVT/GI prophylaxis critical care time spent in reviewing chart, evaluating patient and formulating plan 35 min
[2018-12-23] MEDS: HEPARIN NA (PORCINE) 5,000 UNITS/ML 1ML VIAL SQ SCH ×2 (13:37→21:03)
[2018-12-23 15:30] LABS: HEMATOCRIT 34.5 % (35.4-49); HEMOGLOBIN 11.9 GM/dL (11.7-16.9); MCH 34.1 pg (25.7-33.7); MCHC 34.5 g/dl (32.0-35.9); MEAN CELL VOLUME 98.7 fl (80-96); MEAN PLT VOLUME 7.3 fl (7.5-11.1); PLATELET COUNT 275 K/MM3 (134-434); RDW 17.6 % (11.9-15.9)
--- NOTE | 2018-12-23 18:32 | PN ---
Physical Exam: SUBJECTIVE: Patient seen and examined. He is intubated and sedated. OBJECTIVE: Vital Signs Period Temp Pulse Resp BP Sys/Dyson Pulse Ox Last 24 Hr 97.8 F-98.5 F 92-114 11-20 101-150/55-97 100-100 GENERAL: The patient is sedated on vent. LUNGS: Bilateral rhonchi. HEART: Irregularly irregular. ABDOMEN: Soft, nondistended, normoactive bowel sounds, no masses. EXTREMITIES: 2+ pulses, warm, well-perfused, trace edema. Laboratory Results - last 24 hr 12/21/18 12/22/18 12/22/18 08:30 18:30 20:48 WBC 11.7 H RBC 3.16 L Hgb 10.5 L Hct 30.4 L D MCV 96.4 H MCH 33.3 MCHC 34.6 RDW 16.2 H Plt Count 273 MPV 6.8 L Absolute Neuts (auto) Neutrophils % Lymphocytes % Monocytes % Eosinophils % Basophils % Nucleated RBC % PT with INR INR Anticoagulation Therapy Puncture Site ABG pH ABG pCO2 at Pt Temp ABG pO2 at Pt Temp ABG HCO3 ABG O2 Sat (Measured) ABG O2 Content ABG Base Excess Willy Test O2 Delivery Device Oxygen Flow Rate Vent Mode Vent Rate Mechanical Rate PEEP Pressure Support Vent Sodium 141 Potassium 5.0 Chloride 112 H Carbon Dioxide 24 Anion Gap 6 L BUN 17 Creatinine 0.8 Creat Clearance w eGFR > 60 Random Glucose 138 H Calcium 7.2 L Phosphorus Magnesium Blood Type O POSITIVE Antibody Screen Negative Crossmatch See Detail Crossmatch IS Only See Detail 12/22/18 12/23/18 12/23/18 22:40 00:01 00:01 WBC 17.3 H RBC 3.10 L Hgb 10.3 L Hct 29.8 L MCV 96.0 MCH 33.1 MCHC 34.5 RDW 17.3 H Plt Count 268 MPV 7.0 L Absolute Neuts (auto) 15.1 H Neutrophils % 87.3 H D Lymphocytes % 6.4 L D Monocytes % 6.2 Eosinophils % 0.0 D Basophils % 0.1 Nucleated RBC % 0 PT with INR 15.60 H INR 1.32 H Anticoagulation Therapy Puncture Site Arterial line ABG pH 7.35 ABG pCO2 at Pt Temp 41.5 ABG pO2 at Pt Temp 147 H ABG HCO3 22.5 ABG O2 Sat (Measured) 98.9 H ABG O2 Content 13.5 L ABG Base Excess -2.3 L Willy Test No Result Required. O2 Delivery Device Oxygen Flow Rate No Result Required. Vent Mode Vent Rate Mechanical Rate PEEP Pressure Support Vent Sodium Potassium Chloride Carbon Dioxide Anion Gap BUN Creatinine Creat Clearance w eGFR Random Glucose Calcium Phosphorus Magnesium Blood Type Antibody Screen Crossmatch Crossmatch IS Only 12/23/18 12/23/18 12/23/18 05:30 05:30 05:30 WBC 18.1 H RBC 3.14 L Hgb 10.3 L Hct 30.0 L MCV 95.5 MCH 32.8 MCHC 34.4 RDW 17.4 H Plt Count 275 MPV 7.0 L Absolute Neuts (auto) Neutrophils % Lymphocytes % Monocytes % Eosinophils % Basophils % Nucleated RBC % PT with INR 15.00 H INR 1.27 H Anticoagulation Therapy Puncture Site ABG pH ABG pCO2 at Pt Temp ABG pO2 at Pt Temp ABG HCO3 ABG O2 Sat (Measured) ABG O2 Content ABG Base Excess Willy Test O2 Delivery Device Oxygen Flow Rate Vent Mode Vent Rate Mechanical Rate PEEP Pressure Support Vent Sodium 141 Potassium 4.7 Chloride 111 H Carbon Dioxide 26 Anion Gap 4 L BUN 20 H Creatinine 0.6 Creat Clearance w eGFR > 60 Random Glucose 107 H Calcium 7.6 L Phosphorus 4.0 Magnesium 1.5 L Blood Type Antibody Screen Crossmatch Crossmatch IS Only 12/23/18 12/23/18 06:00 15:00 WBC 22.0 H RBC 3.50 L Hgb 11.9 Hct 34.5 L MCV 98.7 H MCH 34.1 H MCHC 34.5 RDW 17.6 H Plt Count 275 MPV 7.3 L Absolute Neuts (auto) Neutrophils % Lymphocytes % Monocytes % Eosinophils % Basophils % Nucleated RBC % PT with INR INR Anticoagulation Therapy No Result Required. Puncture Site Arterial line ABG pH 7.35 ABG pCO2 at Pt Temp 44.4 ABG pO2 at Pt Temp 129 H ABG HCO3 24.0 ABG O2 Sat (Measured) 98.5 H ABG O2 Content 13.6 L ABG Base Excess -1.0 Willy Test No Result Required. O2 Delivery Device No Result Required. Oxygen Flow Rate 40% Vent Mode A/c Vent Rate 11 Mechanical Rate No Result Required. PEEP 5.0 Pressure Support Vent 600 Sodium Potassium Chloride Carbon Dioxide Anion Gap BUN Creatinine Creat Clearance w eGFR Random Glucose Calcium Phosphorus Magnesium Blood Type Antibody Screen Crossmatch Crossmatch IS Only Active Medications Generic Name Dose Route Start Last Admin Trade Name Freq PRN Reason Stop Dose Admin Acetaminophen 1,000 mg 12/22/18 19:32 Ofirmev Injection - IVPB Q6H PRN PAIN LEVEL 1 - 3 Chlorhexidine Gluconate 1 applic 12/22/18 22:00 12/22/18 22:05 Hibiclens For Decolonization - TP 1 applic HS BRIDGET Administration Heparin Sodium (Porcine) 5,000 unit 12/23/18 14:00 12/23/18 13:37 Heparin - SQ 5,000 unit TID BRIDGET Administration Cefazolin Sodium 1 gm in 50 mls @ 100 mls/hr 12/23/18 02:00 12/23/18 17:44 Ancef 1 Gm Premixed Ivpb - IVPB 100 mls/hr Q8H-IV BRIDGET Administration Lactated Ringer's 1,000 ml in 1,000 mls @ 125 mls/hr 12/22/18 19:15 12/23/18 15:00 Lactated Ringers Solution IV 125 mls/hr ASDIR BRIDGET Administration Midazolam HCl 100 mg/ Sodium 100 mls @ 1 mls/hr 12/22/18 20:00 12/23/18 05:16 Chloride IVPB 12/23/18 19:59 8 mg/hr TITR BRIDGET 8 mls/hr Administration Protocol 1 MG/HR Fentanyl 500 mcg/ Dextrose 100 mls @ 10 mls/hr 12/22/18 20:00 12/23/18 05:11 IVPB 12/23/18 19:59 50 mcg/hr TITR BRIDGET 10 mls/hr Administration 50 MCG/HR Metoprolol Tartrate 5 mg 12/22/18 22:22 Lopressor Injection - IVPUSH Q6H PRN TACHYCARDIA (HR > 120) Mupirocin 1 applic 12/22/18 22:00 12/23/18 10:51 Bactroban Ointment (For Decolonization) - NS 12/27/18 21:59 1 applic BID BRIDGET Administration Non-Formulary Medication 145 mcg 12/23/18 10:00 Linaclotide [Linzess] PO DAILY BR[facility]GET Ondansetron HCl 4 mg 12/22/18 19:07 Zofran Injection IVPUSH Q6H PRN NAUSEA Pantoprazole Sodium 40 mg 12/23/18 10:00 12/23/18 09:38 Protonix Iv IVPUSH 40 mg DAILY BRIDGET Administration ASSESSMENT/PLAN: 1. Acute respiratory failure - Vent management as per critical care 2. s/p revision of cervical and lumbar fusions on 12/22 - Continue Ancef 3. Acute blood loss anemia - Transfused 5 units PRBCs during surgery - Hemoglobin stable - continue to monitor 4. CAD - Aspirin held secondary to spine surgery 5. Paroxysmal atrial fib - Continue Lopressor IV as needed - Anticoagulation held secondary to spine surgery 6. Acute on chronic diastolic heart failure - Continue Lasix as needed 7. Pulmonary HTN 8. HTN 9. Hyperlipidemia 10. COPD 11. GERD 12. History of prostate cancer 13. Rheumatoid arthritis Visit type - Emergency Visit Emergency Visit: Yes ED Registration Date: 12/18/18 Care time: The patient presented to the Emergency Department on the above date and was hospitalized for further evaluation of their emergent condition. - New Patient This patient is new to me today: Yes Date on this admission: 12/23/18 - Critical Care Critical Care patient: Yes Total Critical Care Time (in minutes): 35 Critical Care Statement: The care of this patient involved high complexity decision making to prevent further life threatening deterioration of the patient 's condition and/or to evaluate & treat vital organ system(s) failure or risk of failure. - Discharge Referral [facility]erred to [facility] Med [facility].: No
[2018-12-23] MEDS: METOPROLOL TARTRATE 5 MG/5 ML VIAL IVPUSH PRN (19:54)
[2018-12-23] MEDS: CHLORHEXIDINE GLUCONATE 4% CLEANSER FOR DECOLONIZATION TP SCH (21:03)
[2018-12-23] MEDS ORDERED: MIDAZOLAM 100 MG in SODIUM CHLORIDE 100 ML IVPB SCH (21:30)
[2018-12-24] MEDS: FENTANYL INJECTION 500 MCG in DEXTROSE 5%-WATER - 90 ML IVPB SCH ×2 (00:13→13:10)
[2018-12-24] MEDS: ACETAMINOPHEN 1000 MG/100 ML VIAL (NON FORMULARY) IVPB PRN (02:27)
[2018-12-24] MEDS ORDERED: SODIUM CHLORIDE 500 ML IV STA (02:28)
--- NOTE | 2018-12-24 02:28 | PN ---
Progress Note (short form) - Note Progress Note: Patient spiked temp of 100.9 F at 2:27 AM. Hypotensive and tachycardic Vitals: BP 95/53 MAP 65, tachycardic to 127. -Stat IV NS 500 mls bolus -Stat blood cultures sent -IV Tylenol given.
[2018-12-24] MEDS: LACTATED RINGERS SOLUTION 1,000 ML/1,000 ML INFUS.BAG IV SCH ×2 (02:29→05:10)
[2018-12-24] MEDS ORDERED: LACTATED RINGERS SOLUTION 1000 ML INFUS.BAG IV ONE (02:30)
[2018-12-24] MEDS: CEFAZOLIN 1 GM/D5W 1 GM/50 ML BAG IVPB SCH ×2 (02:41→09:52)
[2018-12-24] MEDS: HEPARIN NA (PORCINE) 5,000 UNITS/ML 1ML VIAL SQ SCH ×3 (05:11→21:09)
[2018-12-24] MEDS: METOPROLOL TARTRATE 5 MG/5 ML VIAL IVPUSH PRN ×2 (05:11→11:05)
[2018-12-24 06:09] LABS: BASO % 0.3 % (0-2.0); EOS % 0.1 % (0-4.5); HEMATOCRIT 27.3 % (35.4-49); HEMOGLOBIN 9.3 GM/dL (11.7-16.9); MCH 32.9 pg (25.7-33.7); MCHC 33.9 g/dl (32.0-35.9); MEAN PLT VOLUME 7.3 fl (7.5-11.1); MONO % 8.2 % (3.8-10.2); NEUT % 85.4 % (42.8-82.8); PLATELET COUNT 257 K/MM3 (134-434); RBC 2.82 M/mm3 (4.00-5.60); RDW 16.6 % (11.9-15.9); WHITE BLOOD COUNT 24.3 K/mm3 (4.0-10.0)
[2018-12-24 06:26] LABS: ARTERIAL BLD GAS O2 SATURATION 99.1 % (95-98); ARTERIAL BLOOD GAS BASE EXCESS -0.5 meq/l (-2-2); ARTERIAL BLOOD GAS PCO2 30.9 mmHg (35-45); ARTERIAL BLOOD GAS PO2 127 mmHg (80-105); ARTERIAL BLOOD GAS pH 7.47 (7.35-7.45)
[2018-12-24 07:04] LABS: ALBUMIN 2.1 g/dl (3.4-5.0); ALK PHOS 53 U/L (45-117); ANION GAP 6 MMOL/L (8-16); BILIRUBIN,TOTAL 0.6 mg/dL (0.2-1); BLOOD UREA NITROGEN 21 mg/dL (7-18); CALCIUM 7.6 mg/dL (8.5-10.1); CHLORIDE 109 mmol/L (98-107); CO2 26 mmol/L (21-32); CREATININE 0.7 mg/dL (0.55-1.3); GLUCOSE,RANDOM 102 mg/dL (74-106); MAGNESIUM 1.8 mg/dL (1.8-2.4); PHOSPHOROUS 3.7 mg/dL (2.5-4.9); POTASSIUM 4.4 mmol/L (3.5-5.1); SGOT/AST 114 U/L (15-37); SGPT/ALT 33 U/L (13-61); SODIUM 141 mmol/L (136-145); TOT PROT 4.2 g/dl (6.4-8.2)
[2018-12-24] MEDS: MIDAZOLAM HCL 2 MG/2 ML SINGLE DOSE VIAL IVPUSH PRN ×5 (07:42→19:30)
--- NOTE | 2018-12-24 08:31 | PN ---
Progress Note, Physician Chief Complaint: seen and examined in ICU Alert, following commands Remains intubated, sedation was lightened. Moving all four extremities. One brief episode of relative hypotension last evening, 90s systolic- required a bolus of IVF, resolved. Creatinine stable. TELE: reviewed. AF 120s. History of Present Illness: Low grade fever noted, cultured. - Current Medication List Current Medications: Active Medications Acetaminophen (Ofirmev Injection -) 1,000 mg IVPB Q6H PRN PRN Reason: PAIN LEVEL 1 - 3 Last Admin: 12/24/18 02:27 Dose: 1,000 mg Chlorhexidine Gluconate (Hibiclens For Decolonization -) 1 applic TP HS BRIDGET Last Admin: 12/23/18 21:03 Dose: 1 applic Heparin Sodium (Porcine) (Heparin -) 5,000 unit SQ TID BRIDGET Last Admin: 12/24/18 05:11 Dose: 5,000 unit Cefazolin Sodium (Ancef 1 Gm Premixed Ivpb -) 1 gm in 50 mls @ 100 mls/hr IVPB Q8H-IV BRIDGET Last Admin: 12/24/18 02:41 Dose: 100 mls/hr Lactated Ringer's (Lactated Ringers Solution) 1,000 ml in 1,000 mls @ 125 mls/ hr IV ASDIR BRIDGET Last Admin: 12/24/18 05:10 Dose: 125 mls/hr Fentanyl 500 mcg/ Dextrose 100 mls @ 10 mls/hr IVPB TITR BRIDGET; Protocol Last Admin: 12/24/18 00:13 Dose: 50 mcg/hr, 10 mls/hr Metoprolol Tartrate (Lopressor Injection -) 5 mg IVPUSH Q6H PRN PRN Reason: TACHYCARDIA (HR > 120) Last Admin: 12/24/18 05:11 Dose: 5 mg Midazolam HCl (Versed -) 2 mg IVPUSH Q4H PRN PRN Reason: AGITATION Last Admin: 12/24/18 07:42 Dose: 2 mg Mupirocin (Bactroban Ointment (For Decolonization) -) 1 applic NS BID [facility] Stop: 12/27/18 21:59 Last Admin: 12/23/18 21:04 Dose: 1 applic Non-Formulary Medication (Linaclotide [Linzess]) 145 mcg PO DAILY [facility] Ondansetron HCl (Zofran Injection) 4 mg IVPUSH Q6H PRN PRN Reason: NAUSEA Pantoprazole Sodium (Protonix Iv) 40 mg IVPUSH DAILY BRIDGET Last Admin: 12/23/18 09:38 Dose: 40 mg - Objective Vital Signs: Vital Signs Temperature 100.5 F H 12/24/18 06:00 Pulse Rate 116 H 12/24/18 06:00 Respiratory Rate 20 12/24/18 08:13 Blood Pressure 143/80 12/24/18 06:00 O2 Sat by Pulse Oximetry (%) 100 12/24/18 08:13 Constitutional: Yes: Other (+ ETT, cervical drain with serosanginous fluid) Cardiovascular: Yes: Pulse Irregular Respiratory: Yes: Other (= breath sounds bilaterally; no rales or wheezing) Gastrointestinal: Yes: Soft Edema: Yes Edema: LLE: 1+, RLE: 1+ Neurological: Yes: Other (moves all 4 extremities; opens eyes to name and follows verbal commands to move extremities and eyes) Labs: CBC, BMP 12/24/18 05:30 12/24/18 05:30 INR, PTT INR 1.27 (0.83-1.09) H 12/23/18 05:30 - ....Imaging Chest X-ray: Pending EKG: Image Reviewed Problem List - Problems (1) Back pain Code(s): M54.9 - DORSALGIA, UNSPECIFIED (2) Paroxysmal atrial fibrillation Code(s): I48.0 - PAROXYSMAL ATRIAL FIBRILLATION (3) CAD (coronary artery disease) Code(s): I25.10 - ATHSCL HEART DISEASE OF [place] CORONARY ARTERY W/O ANG PCTRS Qualifiers: Coronary Disease-Associated Artery/Lesion type: [place] artery [place] vs. transplanted heart: [place] heart Associated angina: without angina Qualified Code(s): I25.10 - Atherosclerotic heart disease of [place] coronary artery without angina pectoris (4) Hx of heart artery stent Code(s): Z95.5 - PRESENCE OF CORONARY ANGIOPLASTY IMPLANT AND GRAFT (5) HTN (hypertension) Code(s): I10 - ESSENTIAL (PRIMARY) HYPERTENSION Qualifiers: Hypertension type: essential hypertension Qualified Code(s): I10 - Essential (primary) hypertension (6) Pulmonary hypertension Code(s): I27.20 - PULMONARY HYPERTENSION, UNSPECIFIED (7) Anticoagulation management encounter Code(s): Z51.81 - ENCOUNTER FOR THERAPEUTIC DRUG LEVEL MONITORING; Z79.01 - ASSISTED (CURRENT) USE OF ANTICOAGULANTS Assessment/Plan IMP: 1. Intractable neck pain, cervical and lumbar disc disease POD #2 Removal of hardware from C2-C7, laminectomy C2-T1 with posterior fusion of C2-T1. removal of hardware from L3-S1(retained screw at Right S1) lamienctomy of L1/L2 and L2/L3 posterior fusion of L1 thru S1, repair of durotomy and cage placment L2-L3 2.PHTN- prior asbestos exposure 3. CAD s/p PCI 4. Permanent AF REC: 1. Vent management as per ICU team; repeat CXR today, diurese as needed. Received dose of IV Lasix yesterday. 2. Transient episode relative hypotension last evening, resolved with IVF. Currently hemodynamically stable w/ stable renal fxn. 3. H/H with small dip, but at baseline. MARY drains remain in place. 4. F/u post op CT scan official read. 5. Abx as per Neurosurgery. Post op low grade fever, cultured. 6. DVT Prophylaxis 7. Tele in ICU with IV Lopressor for rate control. 8. Resume low dose ASA when feasible from Neurosurgical standpoint. 9. Would hold on resumption of full AC additional 24 hours as drains still with serosanginous discharge. Will follow.
[2018-12-24] MEDS: PANTOPRAZOLE SODIUM 40 MG VIAL IVPUSH SCH (09:53)
[2018-12-24] MEDS: MUPIROCIN 2% TOPICAL OINTMENT FOR DECOLONIZATION NS SCH ×2 (09:53→21:04)
[2018-12-24 10:22] LABS: URINE APPEARANCE CLOUDY; URINE BILIRUBIN NEGATIVE (<2.0 mg/dL); URINE GLUCOSE (UA) NEGATIVE (NEGATIVE); URINE KETONE NEGATIVE (NEGATIVE); URINE LEUK ESTERASE 2+ (NEGATIVE); URINE NITRITE NEGATIVE (NEGATIVE); URINE PROTEIN 2+ (NEGATIVE); URINE UROBILINOGEN NEGATIVE mg/dL (0.2-1.0)
[2018-12-24 10:23] LABS: URINE COLOR DK YELLOW
[2018-12-24 10:24] LABS: EPI CELLS RARE /HPF (FEW); URINE BACTERIA RARE /hpf (NONE SEEN); URINE MUCUS RARE
[2018-12-24] MEDS ORDERED: FUROSEMIDE 40 MG/4 ML INJECTABLE VIAL IVPUSH ONE (11:16)
--- NOTE | 2018-12-24 11:45 | PN ---
Progress Note (short form) - Note Progress Note: 73yo M s/p C2-t1 PCDF and L1-3 fusion, pt seen in the ICU. Continues to be vented, but is awake. Pt WBC trending up and spiking low grade fevers. Last Vital Signs Temp Pulse Resp BP Pulse Ox 100.2 F H 146 H 38 H 180/85 H 96 12/24/18 10:00 12/24/18 11:05 12/24/18 11:00 12/24/18 11:05 12/24/18 09:20 CBC, BMP 12/24/18 05:30 12/24/18 05:30 PE: Gen: Awake, vented Back: incisions are clean with no erythema or discharge, drains in place with serosanguinous drainage. Cervical drain: 60ml Lumbar drain: 20ml Ext: moving all 4 spontaneously, no obvious weakness Problem List - Problems (1) Back pain Assessment/Plan: Plan -infectious work up per ICU/med team -continue drains for now. -will continue to follow. Code(s): M54.9 - DORSALGIA, UNSPECIFIED
--- NOTE | 2018-12-24 11:48 | PN ---
Teaching Attending Note Name of Resident: Winnie Juan ATTENDING PHYSICIAN STATEMENT I saw and evaluated the patient. I reviewed the resident's note and discussed the case with the resident. I agree with the resident's findings and plan as documented. SUBJECTIVE: Patient seen and examined in the ICU. Remains intubated. AC Mode of vent, 40% FiO2. Hard collar in place. No pressors. CXR: Bilateral pleural effusions and pulmonary vascular congestion, fluid in the right fissure Intake & Output 12/21/18 12/22/18 12/23/18 12/24/18 23:59 23:59 23:59 23:59 Intake Total 350 8567 2962 1911 Output Total 2710 2120 280 Balance 350 5857 842 1631 Weight 194 lb Last Vital Signs Temp Pulse Resp BP Pulse Ox 100.2 F H 146 H 38 H 180/85 H 96 12/24/18 10:00 12/24/18 11:05 12/24/18 11:00 12/24/18 11:05 12/24/18 09:20 Active Medications Acetaminophen (Ofirmev Injection -) 1,000 mg IVPB Q6H PRN PRN Reason: PAIN LEVEL 1 - 3 Last Admin: 12/24/18 02:27 Dose: 1,000 mg Chlorhexidine Gluconate (Hibiclens For Decolonization -) 1 applic TP HS BRIDGET Last Admin: 12/23/18 21:03 Dose: 1 applic Heparin Sodium (Porcine) (Heparin -) 5,000 unit SQ TID BRIDGET Last Admin: 12/24/18 05:11 Dose: 5,000 unit Cefazolin Sodium (Ancef 1 Gm Premixed Ivpb -) 1 gm in 50 mls @ 100 mls/hr IVPB Q8H-IV BRIDGET Last Admin: 12/24/18 09:52 Dose: 100 mls/hr Lactated Ringer's (Lactated Ringers Solution) 1,000 ml in 1,000 mls @ 125 mls/ hr IV ASDIR BRIDGET Last Admin: 12/24/18 05:10 Dose: 125 mls/hr Fentanyl 500 mcg/ Dextrose 100 mls @ 10 mls/hr IVPB TITR BRIDGET; Protocol Last Titration: 12/24/18 11:15 Dose: 50 mcg/hr, 10 mls/hr Metoprolol Tartrate (Lopressor Injection -) 5 mg IVPUSH Q6H PRN PRN Reason: TACHYCARDIA (HR > 120) Last Admin: 12/24/18 11:05 Dose: 5 mg Midazolam HCl (Versed -) 2 mg IVPUSH Q4H PRN PRN Reason: AGITATION Last Admin: 12/24/18 07:42 Dose: 2 mg Mupirocin (Bactroban Ointment (For Decolonization) -) 1 applic NS BID [facility]GET Stop: 12/27/18 21:59 Last Admin: 12/24/18 09:53 Dose: 1 applic Non-Formulary Medication (Linaclotide [Linzess]) 145 mcg PO DAILY [facility] Ondansetron HCl (Zofran Injection) 4 mg IVPUSH Q6H PRN PRN Reason: NAUSEA Pantoprazole Sodium (Protonix Iv) 40 mg IVPUSH DAILY [facility] Last Admin: 12/24/18 09:53 Dose: 40 mg Gen: intubated, sedated Heart: RRR Lung: Bibasilar rales/rhonchi Abd: soft, nontender Ext: no edema Drains with serosanguinous fluid Laboratory Results - last 24 hr 12/21/18 12/23/18 12/24/18 08:30 15:00 05:30 WBC 22.0 H 24.3 H RBC 3.50 L 2.82 L Hgb 11.9 9.3 L Hct 34.5 L 27.3 L D MCV 98.7 H 97.0 H MCH 34.1 H 32.9 MCHC 34.5 33.9 RDW 17.6 H 16.6 H Plt Count 275 257 MPV 7.3 L 7.3 L Absolute Neuts (auto) 20.7 H Neutrophils % 85.4 H Lymphocytes % 6.0 L Monocytes % 8.2 Eosinophils % 0.1 D Basophils % 0.3 Nucleated RBC % 0 Puncture Site ABG pH ABG pCO2 at Pt Temp ABG pO2 at Pt Temp ABG HCO3 ABG O2 Sat (Measured) ABG O2 Content ABG Base Excess Willy Test O2 Delivery Device Oxygen Flow Rate Vent Mode Vent Rate Mechanical Rate PEEP Pressure Support Vent Sodium Potassium Chloride Carbon Dioxide Anion Gap BUN Creatinine Creat Clearance w eGFR Random Glucose Lactic Acid Calcium Phosphorus Magnesium Total Bilirubin AST ALT Alkaline Phosphatase Total Protein Albumin Urine Color Urine Appearance Urine pH Ur Specific [place] Urine Protein Urine Glucose (UA) Urine Ketones Urine Blood Urine Nitrite Urine Bilirubin Urine Urobilinogen Ur Leukocyte Esterase Urine WBC (Auto) Urine RBC (Auto) Ur Epithelial Cells Urine Bacteria Urine Mucus Crossmatch See Detail Crossmatch IS Only See Detail 12/24/18 12/24/18 12/24/18 05:30 06:00 06:10 WBC RBC Hgb Hct MCV MCH MCHC RDW Plt Count MPV Absolute Neuts (auto) Neutrophils % Lymphocytes % Monocytes % Eosinophils % Basophils % Nucleated RBC % Puncture Site Arterial line ABG pH 7.47 H ABG pCO2 at Pt Temp 30.9 L ABG pO2 at Pt Temp 127 H ABG HCO3 22.3 ABG O2 Sat (Measured) 99.1 H ABG O2 Content 11.6 L ABG Base Excess -0.5 Willy Test No Result Required. O2 Delivery Device Vent Oxygen Flow Rate 40% Vent Mode A/c Vent Rate 11 Mechanical Rate Yes PEEP 5.0 Pressure Support Vent 600 Sodium 141 Potassium 4.4 Chloride 109 H Carbon Dioxide 26 Anion Gap 6 L BUN 21 H Creatinine 0.7 Creat Clearance w eGFR > 60 Random Glucose 102 Lactic Acid 1.1 Calcium 7.6 L Phosphorus 3.7 Magnesium 1.8 Total Bilirubin 0.6 AST 114 H ALT 33 Alkaline Phosphatase 53 Total Protein 4.2 L Albumin 2.1 L Urine Color Urine Appearance Urine pH Ur Specific [place] Urine Protein Urine Glucose (UA) Urine Ketones Urine Blood Urine Nitrite Urine Bilirubin Urine Urobilinogen Ur Leukocyte Esterase Urine WBC (Auto) Urine RBC (Auto) Ur Epithelial Cells Urine Bacteria Urine Mucus Crossmatch Crossmatch IS Only 12/24/18 09:05 WBC RBC Hgb Hct MCV MCH MCHC RDW Plt Count MPV Absolute Neuts (auto) Neutrophils % Lymphocytes % Monocytes % Eosinophils % Basophils % Nucleated RBC % Puncture Site ABG pH ABG pCO2 at Pt Temp ABG pO2 at Pt Temp ABG HCO3 ABG O2 Sat (Measured) ABG O2 Content ABG Base Excess Willy Test O2 Delivery Device Oxygen Flow Rate Vent Mode Vent Rate Mechanical Rate PEEP Pressure Support Vent Sodium Potassium Chloride Carbon Dioxide Anion Gap BUN Creatinine Creat Clearance w eGFR Random Glucose Lactic Acid Calcium Phosphorus Magnesium Total Bilirubin AST ALT Alkaline Phosphatase Total Protein Albumin Urine Color Dk yellow Urine Appearance Cloudy Urine pH 5.0 Ur Specific [place] 1.027 Urine Protein 2+ H Urine Glucose (UA) Negative Urine Ketones Negative Urine Blood 3+ H Urine Nitrite Negative Urine Bilirubin Negative Urine Urobilinogen Negative Ur Leukocyte Esterase 2+ H Urine WBC (Auto) 120 Urine RBC (Auto) 55 Ur Epithelial Cells Rare Urine Bacteria Rare Urine Mucus Rare Crossmatch Crossmatch IS Only ASSESSMENT AND PLAN: Acute Respiratory Failure POD#1 CHELE, C2-T1/L3-S1/Laminectomy/L1-S1 Posterior Fusion/Cage Placement/ Durotomy repair Acute Blood Loss Anemia CAD Atrial Fibrillation LV Diastolic Dysfunction COPD Rheumatoid Arthritis HTN Hyperlipidemia h/o Prostate Ca - Lasix IVP - monitor H/H - Normal transfusion thresholds - monitor drain output - monitor urine output, creatinine - empiric antibiotics noted - rate control - Will resume anticoagulation when ok with surgery - Spontaneous breathing trials after lasix as tolerated - DVT/GI prophylaxis Dr Hampton critical care time spent in reviewing chart, evaluating patient and formulating plan 35 min
--- NOTE | 2018-12-24 12:00 | PN ---
Physical Exam: SUBJECTIVE: 73 year old male with PMH chronic back/neck pain, multiple spinal surgeries, HTN , HLD, atrial fibrillation on Eliquis, CHF, COPD, GERD, RA, peripheral neuropathy was sent to ED for spinal surgery 12/18/18. Pt had removal of hardware from C2-C7, laminectomy C2-T1 with posterior fusion of C2-T1. removal of hardware from L3-S1(retained screw at Right S1) lamienctomy of L1/L2 and L2/ L3 posterior fusion of L1 thru S1, repair of durotomy and cage placment L2-L3 . Pt lost 1800 cc of blood in OR, was given 5 units of PRBC and 6.5L of IV fluid. Pt was sent to ICU intubated and sedated. I saw and examined the patient today. Pt was alert, able to follow commands and move all fours. MRI of C-spine (10/2017) showed multilevel anterior and posterior cervical spine surgery, moderate probable extruded broad-based C6-C7 disc herniation - MRI of L-spine (10/2017) showed L1-L2 moderate degenerative disc disease with residual minimal disc bulge slightly to moderately narrowing the foramina; L2- L3 moderate degenerative disc disease with mild to moderate left paracentral disc herniation impinging the exiting left L3 nerve root and L2 nerve root in foramen, anterior epidural density resulting in moderately severe canal stenosis ; L5-S1 mild broad-based disc bulge reaching both L5 nerve roots OBJECTIVE: Vital Signs Period Temp Pulse Resp BP Sys/Dyson Pulse Ox Last 24 Hr 98.4 F-100.9 F 95-146 11-38 91-180/52-101 96-100 GENERAL: The patient is awake, alert, and fully oriented, in no acute distress. HEAD: Normal with no signs of trauma. EYES: PERRL, extraocular movements intact, sclera anicteric, conjunctiva clear. No ptosis. ENT: Nares patent, moist mucous membranes. NECK: In c-collar. LUNGS: Breath sounds equal, rhonchourous bilaterally, bibasilar crackles. no stridor. intubated. HEART: Regular rate and rhythm, S1, S2 without murmur, rub or gallop. ABDOMEN: Soft, nontender, nondistended, normoactive bowel sounds, no guarding, no rebound, no hepatosplenomegaly, no masses. EXTREMITIES: 2+ pulses, warm, well-perfused, no edema. NEUROLOGICAL: Cranial nerves II through XII grossly intact. PSYCH: intubated, unable to speak. follows commands appropriately. agitated. SKIN: Warm, dry, normal turgor, no rashes or lesions noted Laboratory Results - last 24 hr 12/21/18 12/23/18 12/24/18 08:30 15:00 05:30 WBC 22.0 H 24.3 H RBC 3.50 L 2.82 L Hgb 11.9 9.3 L Hct 34.5 L 27.3 L D MCV 98.7 H 97.0 H MCH 34.1 H 32.9 MCHC 34.5 33.9 RDW 17.6 H 16.6 H Plt Count 275 257 MPV 7.3 L 7.3 L Absolute Neuts (auto) 20.7 H Neutrophils % 85.4 H Lymphocytes % 6.0 L Monocytes % 8.2 Eosinophils % 0.1 D Basophils % 0.3 Nucleated RBC % 0 Puncture Site ABG pH ABG pCO2 at Pt Temp ABG pO2 at Pt Temp ABG HCO3 ABG O2 Sat (Measured) ABG O2 Content ABG Base Excess Willy Test O2 Delivery Device Oxygen Flow Rate Vent Mode Vent Rate Mechanical Rate PEEP Pressure Support Vent Sodium Potassium Chloride Carbon Dioxide Anion Gap BUN Creatinine Creat Clearance w eGFR Random Glucose Lactic Acid Calcium Phosphorus Magnesium Total Bilirubin AST ALT Alkaline Phosphatase Total Protein Albumin Urine Color Urine Appearance Urine pH Ur Specific [place] Urine Protein Urine Glucose (UA) Urine Ketones Urine Blood Urine Nitrite Urine Bilirubin Urine Urobilinogen Ur Leukocyte Esterase Urine WBC (Auto) Urine RBC (Auto) Ur Epithelial Cells Urine Bacteria Urine Mucus Crossmatch See Detail Crossmatch IS Only See Detail 12/24/18 12/24/18 12/24/18 05:30 06:00 06:10 WBC RBC Hgb Hct MCV MCH MCHC RDW Plt Count MPV Absolute Neuts (auto) Neutrophils % Lymphocytes % Monocytes % Eosinophils % Basophils % Nucleated RBC % Puncture Site Arterial line ABG pH 7.47 H ABG pCO2 at Pt Temp 30.9 L ABG pO2 at Pt Temp 127 H ABG HCO3 22.3 ABG O2 Sat (Measured) 99.1 H ABG O2 Content 11.6 L ABG Base Excess -0.5 Willy Test No Result Required. O2 Delivery Device Vent Oxygen Flow Rate 40% Vent Mode A/c Vent Rate 11 Mechanical Rate Yes PEEP 5.0 Pressure Support Vent 600 Sodium 141 Potassium 4.4 Chloride 109 H Carbon Dioxide 26 Anion Gap 6 L BUN 21 H Creatinine 0.7 Creat Clearance w eGFR > 60 Random Glucose 102 Lactic Acid 1.1 Calcium 7.6 L Phosphorus 3.7 Magnesium 1.8 Total Bilirubin 0.6 AST 114 H ALT 33 Alkaline Phosphatase 53 Total Protein 4.2 L Albumin 2.1 L Urine Color Urine Appearance Urine pH Ur Specific [place] Urine Protein Urine Glucose (UA) Urine Ketones Urine Blood Urine Nitrite Urine Bilirubin Urine Urobilinogen Ur Leukocyte Esterase Urine WBC (Auto) Urine RBC (Auto) Ur Epithelial Cells Urine Bacteria Urine Mucus Crossmatch Crossmatch IS Only 12/24/18 09:05 WBC RBC Hgb Hct MCV MCH MCHC RDW Plt Count MPV Absolute Neuts (auto) Neutrophils % Lymphocytes % Monocytes % Eosinophils % Basophils % Nucleated RBC % Puncture Site ABG pH ABG pCO2 at Pt Temp ABG pO2 at Pt Temp ABG HCO3 ABG O2 Sat (Measured) ABG O2 Content ABG Base Excess Willy Test O2 Delivery Device Oxygen Flow Rate Vent Mode Vent Rate Mechanical Rate PEEP Pressure Support Vent Sodium Potassium Chloride Carbon Dioxide Anion Gap BUN Creatinine Creat Clearance w eGFR Random Glucose Lactic Acid Calcium Phosphorus Magnesium Total Bilirubin AST ALT Alkaline Phosphatase Total Protein Albumin Urine Color Dk yellow Urine Appearance Cloudy Urine pH 5.0 Ur Specific [place] 1.027 Urine Protein 2+ H Urine Glucose (UA) Negative Urine Ketones Negative Urine Blood 3+ H Urine Nitrite Negative Urine Bilirubin Negative Urine Urobilinogen Negative Ur Leukocyte Esterase 2+ H Urine WBC (Auto) 120 Urine RBC (Auto) 55 Ur Epithelial Cells Rare Urine Bacteria Rare Urine Mucus Rare Crossmatch Crossmatch IS Only Active Medications Generic Name Dose Route Start Last Admin Trade Name Freq PRN Reason Stop Dose Admin Acetaminophen 1,000 mg 12/22/18 19:32 12/24/18 02:27 Ofirmev Injection - IVPB 1,000 mg Q6H PRN Administration PAIN LEVEL 1 - 3 Chlorhexidine Gluconate 1 applic 12/22/18 22:00 12/23/18 21:03 Hibiclens For Decolonization - TP 1 applic HS BRIDGET Administration Heparin Sodium (Porcine) 5,000 unit 12/23/18 14:00 12/24/18 05:11 Heparin - SQ 5,000 unit TID BRIDGET Administration Cefazolin Sodium 1 gm in 50 mls @ 100 mls/hr 12/23/18 02:00 12/24/18 09:52 Ancef 1 Gm Premixed Ivpb - IVPB 100 mls/hr Q8H-IV BRIDGET Administration Lactated Ringer's 1,000 ml in 1,000 mls @ 125 mls/hr 12/22/18 19:15 12/24/18 05:10 Lactated Ringers Solution IV 125 mls/hr ASDIR BRIDGET Administration Fentanyl 500 mcg/ Dextrose 100 mls @ 10 mls/hr 12/23/18 21:30 12/24/18 11:23 IVPB 75 mcg/hr TITR BRIDGET 15 mls/hr Titration Protocol 50 MCG/HR Metoprolol Tartrate 5 mg 12/22/18 22:22 12/24/18 11:05 Lopressor Injection - IVPUSH 5 mg Q6H PRN Administration TACHYCARDIA (HR > 120) Midazolam HCl 2 mg 12/24/18 02:33 12/24/18 11:54 Versed - IVPUSH 2 mg Q4H PRN Administration AGITATION Mupirocin 1 applic 12/22/18 22:00 12/24/18 09:53 Bactroban Ointment (For Decolonization) - NS 12/27/18 21:59 1 applic BID BRIDGET Administration Non-Formulary Medication 145 mcg 12/23/18 10:00 Linaclotide [Linzess] PO DAILY BRIDGET Ondansetron HCl 4 mg 12/22/18 19:07 Zofran Injection IVPUSH Q6H PRN NAUSEA Pantoprazole Sodium 40 mg 12/23/18 10:00 12/24/18 09:53 Protonix Iv IVPUSH 40 mg DAILY BRIDGET Administration IMAGING: * Lumbar Spine MRI (12/21/18): The height and alignment of the vertebral bodies remain unremarkable. L5-S1 mild broadbase disc bulge again seen reaching and probably slightly impinging both L5 nerve roots. L2-L3 moderate degenerative disc disease and mild broad-based disc bulge, probably impinging both L2 nerve roots and left L3 nerve root. Previously noted left paracentral disc herniation is not appreciated on this exam. L1-L2 moderately severe degenerative disc disease again seen with interval minimal fluid within the intervertebral disc space, anteriorly likely on the basis of degenerative changes. If clinically concerned correlation with contrast-enhanced MRI of the lumbar spine could be obtained to rule out discitis. Mild broad-based disc bulge again seen likely impinging both L1 nerve roots. * CXR (11/24/18): Internal development of small to mod b/l pleural effusions noted prob on basis of pulm vascular congestion Past Imaging * On 11/24/18 pt underwent Lexiscan MIBI which demonstrated no ischemic changes with stress, Occ PVCs, no significant arrhythmias. * ECHO 11/24/18: Moderate Asymmetric LVH. LA is severely dilated, mod MR, moderate pHTN, LV systolic function is normal and there is pleural effusion present. * 11/20/18 Stress test: Dilated left ventricle at baseline. Normal perfusion. * MRI of C-spine (10/2017) showed multilevel anterior and posterior cervical spine surgery, moderate probable extruded broad-based C6-C7 disc herniation * MRI of L-spine (10/2017) showed L1-L2 moderate degenerative disc disease with residual minimal disc bulge slightly to moderately narrowing the foramina; L2- L3 moderate degenerative disc disease with mild to moderate left paracentral disc herniation impinging the exiting left L3 nerve root and L2 nerve root in foramen, anterior epidural density resulting in moderately severe canal stenosis ; L5-S1 mild broad-based disc bulge reaching both L5 nerve roots ASSESSMENT AND PLAN: NEURO #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 -Mechanically ventilated: 574/11/40%/5 -Spontaneous breathing trials when mental status improves CV #Acute Blood loss -s/p 5U pRBCs given; H/H 9.3/27.3 today; prior H/H 10.3/30 yesterday. -serial CBCs -Monitor drain output #Fluid Overloaded -CXR showing pulmonary congestion -Lasix 40 mg IV given 12/23/18 -Will give another dose of Lasix 40 mg IV today 12/24/18 -CXR tomorrow AM #CAD; s/p LAD stent (2018) -Cardiology recs DC Plavix, 1 year s/p PCI -ASA started per cardio and neurosurgery rec -ASA 300 mg suppository #Afib -Hold home Eliquis for now per neurosurgery -Per cardio, can resume AC after 24 if clinically stable #Chronic Diastolic CHF -Per cardio, can given Lasix 40 mg IVP x1 dose -Hold home Lasix 40 PO QD #HTN/HLD -Metoprolol Tartrate 5 mg IVP Q6H PRN GI #GERD -IV Protonix 40 QD -Cont home meds when able RENAL #BPH, Prostate Cx s/p prostatectomy -Cont home meds when able HEME #Macrocytic Anemia -Cont home meds when able (Ferrous Sulfate, Folic acid) ID -Cefazolin 1 gm IVPB (started 12/22/18), Day 3 while MARY drains still in place per surg -Ceftriaxone 1g IV 12/24/18 -ID recs Cefepime 1g Q8H; DC Cefazolin and Ceftriaxone -Febrile 100.2 today -UA positive for UTI -Cintron changed -ID on board ONCOLOGY #Hx of Prostate Cancer; s/p prostatectomy PROPHYLAXIS -SQH/SCDs -Protonix 40 QD IVP FEN -No IVF -Mag replaced prior, normal today, will continue to follow -NPO LINES -L radial, A line -RIJ central line -MARY drain x2 (upper/lower back) -cintron, changed today 12/24/18 Dispo -cont to monitor in ICU -full code Visit type - Emergency Visit Emergency Visit: Yes ED Registration Date: 12/18/18 Care time: The patient presented to the Emergency Department on the above date and was hospitalized for further evaluation of their emergent condition. - New Patient This patient is new to me today: Yes Date on this admission: 12/24/18 - Critical Care Critical Care patient: Yes Total Critical Care Time (in minutes): 35 Critical Care Statement: The care of this patient involved high complexity decision making to prevent further life threatening deterioration of the patient 's condition and/or to evaluate & treat vital organ system(s) failure or risk of failure. - Discharge Referral Referred to [facility] Med P.C.: No
[2018-12-24] MEDS ORDERED: ASPIRIN 300 MG SUPP.RECT PR ONE (12:05)
[2018-12-24] MEDS ORDERED: CEFTRIAXONE 1 GM in DEXTROSE 5%-WATER - 50 ML IVPB ONE (12:15)
[2018-12-24] MEDS ORDERED: cefTRIAXone SODIUM 1 GM VIAL ONE (12:35)
[2018-12-24] MEDS ORDERED: DEXTROSE 5%-WATER - 50 ML IVPB ONE (12:35)
[2018-12-24] MEDS ORDERED: fentaNYL CITRATE 250 MCG/5 ML VIAL ONE ×4 (13:05→23:40)
[2018-12-24 13:10] LABS: ANISOCYTOSIS 1+; MACROCYTOSIS 1+; OVALOCYTE 1+; PLATELET ESTIMATE NORMAL
[2018-12-24] MEDS ORDERED: MIDAZOLAM HCL 2 MG/2 ML SINGLE DOSE VIAL ONE (15:12)
[2018-12-24] MEDS: ASPIRIN 300 MG SUPP.RECT PR SCH (15:15)
--- NOTE | 2018-12-24 15:59 | PN ---
Progress Note (short form) - Note Progress Note: ID consult dictated postop fever pod #2 s/p surgery 3/ with C2-T1 laminectomy and L3-S1 laminectomy developed fever, hypotension and tachycardia overnight leukocytosis still with cintron still intubated pyuria cannot r/o catheter related UTI cannot r/o RLL pneumonia (cardiomegally, ?volume overload) has drains in place cultures pending get sputum culture cefepime
[2018-12-24] MEDS ORDERED: CEFEPIME HCL 1 GM VIAL (RESTRICTED TO ID) ONE ×2 (16:39→23:42)
[2018-12-24] MEDS ORDERED: DEXTROSE 5%-WATER 100 ML IVPB ONE ×2 (16:39→23:42)
[2018-12-24] MEDS: CEFEPIME 1 GM in DEXTROSE 5%-WATER 100 ML IVPB SCH (17:55)
[2018-12-24] MEDS: MIDAZOLAM 100 MG in SODIUM CHLORIDE 100 ML IVPB SCH (19:30)
[2018-12-24] MEDS ORDERED: MIDAZOLAM 100 MG/100 ML MG IVPB ONE ×2 (19:34→23:42)
--- NOTE | 2018-12-24 19:35 | PN ---
Progress Note, Physician - Current Medication List Current Medications: Active Medications Acetaminophen (Ofirmev Injection -) 1,000 mg IVPB Q6H PRN PRN Reason: PAIN LEVEL 1 - 3 Last Admin: 12/24/18 02:27 Dose: 1,000 mg Aspirin (Asa -) 300 mg [place] DAILY [facility] Last Admin: 12/24/18 15:15 Dose: 300 mg Chlorhexidine Gluconate (Hibiclens For Decolonization -) 1 applic TP HS [facility] Last Admin: 12/23/18 21:03 Dose: 1 applic Heparin Sodium (Porcine) (Heparin -) 5,000 unit SQ TID [facility] Last Admin: 12/24/18 13:11 Dose: 5,000 unit Lactated Ringer's (Lactated Ringers Solution) 1,000 ml in 1,000 mls @ 125 mls/ hr IV ASDIR [facility] Last Admin: 12/24/18 05:10 Dose: 125 mls/hr Fentanyl 500 mcg/ Dextrose 100 mls @ 10 mls/hr IVPB TITR [facility]; Protocol Last Titration: 12/24/18 15:13 Dose: 100 mcg/hr, 20 mls/hr Cefepime HCl 1 gm/ Dextrose 100 mls @ 200 mls/hr IVPB Q8H-IV BRIDGET; Protocol Last Admin: 12/24/18 17:55 Dose: 200 mls/hr Midazolam HCl 100 mg/ Sodium (Chloride) 100 mls @ 1 mls/hr IVPB TITR [facility]; Protocol Metoprolol Tartrate (Lopressor Injection -) 5 mg IVPUSH Q6H PRN PRN Reason: TACHYCARDIA (HR > 120) Last Admin: 12/24/18 11:05 Dose: 5 mg Midazolam HCl (Versed -) 2 mg IVPUSH Q2H PRN PRN Reason: AGITATION Last Admin: 12/24/18 17:20 Dose: 2 mg Mupirocin (Bactroban Ointment (For Decolonization) -) 1 applic NS BID [facility] Stop: 12/27/18 21:59 Last Admin: 12/24/18 09:53 Dose: 1 applic Ondansetron HCl (Zofran Injection) 4 mg IVPUSH Q6H PRN PRN Reason: NAUSEA Pantoprazole Sodium (Protonix Iv) 40 mg IVPUSH DAILY [facility] Last Admin: 12/24/18 09:53 Dose: 40 mg - Objective Vital Signs: Vital Signs Temperature 99.3 F 12/24/18 18:00 Pulse Rate 98 H 12/24/18 18:00 Respiratory Rate 14 12/24/18 19:12 Blood Pressure 119/65 12/24/18 18:00 O2 Sat by Pulse Oximetry (%) 100 12/24/18 18:07 Labs: CBC, BMP 12/24/18 05:30 12/24/18 05:30 INR, PTT INR 1.27 (0.83-1.09) H 12/23/18 05:30 Problem List - Problems (1) Back pain Code(s): M54.9 - DORSALGIA, UNSPECIFIED (2) Anemia Code(s): D64.9 - ANEMIA, UNSPECIFIED (3) Paroxysmal atrial fibrillation Code(s): I48.0 - PAROXYSMAL ATRIAL FIBRILLATION (4) CAD (coronary artery disease) Code(s): I25.10 - ATHSCL HEART DISEASE OF [place] CORONARY ARTERY W/O ANG PCTRS Qualifiers: Coronary Disease-Associated Artery/Lesion type: [place] artery [place] vs. transplanted heart: [place] heart Associated angina: without angina Qualified Code(s): I25.10 - Atherosclerotic heart disease of [place] coronary artery without angina pectoris (5) GERD (gastroesophageal reflux disease) Code(s): K21.9 - GASTRO-ESOPHAGEAL REFLUX DISEASE WITHOUT ESOPHAGITIS (6) HLD (hyperlipidemia) Code(s): E78.5 - HYPERLIPIDEMIA, UNSPECIFIED (7) HTN (hypertension) Code(s): I10 - ESSENTIAL (PRIMARY) HYPERTENSION Qualifiers: Hypertension type: essential hypertension Qualified Code(s): I10 - Essential (primary) hypertension (8) Hx of heart artery stent Code(s): Z95.5 - PRESENCE OF CORONARY ANGIOPLASTY IMPLANT AND GRAFT (9) COPD (chronic obstructive pulmonary disease) Code(s): J44.9 - CHRONIC OBSTRUCTIVE PULMONARY DISEASE, UNSPECIFIED (10) Congestive heart failure Code(s): I50.9 - HEART FAILURE, UNSPECIFIED Qualifiers: Heart failure type: unspecified Heart failure chronicity: acute Qualified Code(s): I50.9 - Heart failure, unspecified
--- NOTE | 2018-12-25 00:41 | CONS ---
DATE OF CONSULTATION: DATE OF DICTATION: 12/24/2018 INFECTIOUS DISEASE CONSULTATION HISTORY OF PRESENT ILLNESS: This is a 73-year-old man who is admitted on the for medical optimization prior to having elective back surgery. He has known neck pain and upper extremity and lower extremity numbness and was scheduled for planned repeat back surgery. He has prior to that in the past 10 years multiple cervical and lumbar procedures with significant worsening of his symptoms over the last 6 months. He was admitted and evaluated and optimized on the . He was taken to the operating room where he underwent a cervical laminectomy as well as a lumbosacral laminectomy. He remained intubated post surgery on the with a Bradshaw in place. He was on postoperative cephazolin, as he still had drains in place. Last night he developed fever with tachycardia and hypotension. When he was noted to have white cells in his urine, he was given a dose of ceftriaxone. I am asked to see him for further evaluation. He did have blood cultures drawn when he had fever last night. PAST MEDICAL HISTORY: Notable for hypertension, hyperlipidemia, coronary artery disease status post stent, chronic diastolic heart failure, pulmonary hypertension, anemia, history of prostate cancer, GERD, COPD, rheumatoid arthritis, peripheral neuropathy, atrial fibrillation, chronic neck and back pain . PAST SURGICAL HISTORY: Notable for a prostatectomy. He has had multiple cervical and lumbar surgeries. He has had right ankle surgery secondary to trauma. SOCIAL HISTORY: He is a nonsmoker, no alcohol or drug use. He lives at home with his . ALLERGIES: She is allergic to GENTAMICIN, KETOROLAC, and PROPOFOL. MEDICINE: Include Uloric, gabapentin, methocarbamol, Singulair, Prilosec, oxycodone, Plavix, Feosol, Lasix, Toprol, Lipitor, folic acid, , Pamelor, Flomax, Ambien, Eliquis, and oxycodone. REVIEW OF SYSTEMS: Not available at this time. He is awake, and he denies any pain. PHYSICAL EXAMINATION: VITAL SIGNS: His T-max was 100.9, current temperature is 99.3, pulse of 106, blood pressure 118/68, respiratory rate 14. HEENT: He is orally intubated. Normocephalic. Eyes are anicteric. He has MARY drains coming from his surgical sites. He is on his back, we did not turn him . LUNGS: Diminished breath sounds at the bases, left greater than right. HEART: Tachycardic. ABDOMEN: Soft, nontender. EXTREMITIES: Without edema. He has a Bradshaw in place. LABORATORY: White count since surgery on the on the and today is 24,000. Hemoglobin 9.3, platelets of 257. His BUN and creatinine are 21 and 0.7. Urinalysis has 2+ leukocytes with 120 white cells, and cultures are pending. Chest x-ray reveals a large heart, some congestion, and a question of a left effusion versus infiltrate. IMPRESSION: 1. In summary, this is a 73-year-old man with postoperative fever postoperative day number 2 status post surgery C2-T1 laminectomy and L3-S1 laminectomy. He has pyuria, cannot rule out Bradshaw catheter related urinary tract infection, cannot rule out a right lower lobe pneumonia, has cardiomegaly and versus volume overload. Cultures are pending. I would get a sputum culture, and I would treat him with cefepime at this time . This will provide good gram positive coverage in place of cephazolin as he still has drains in place as well as appropriate coverage for pneumonia as well as urinary tract infection to include pseudomonas . Further recommendations to follow. 2. Status post back surgery. 3. He remains intubated on a vent for history of coronary artery disease . VERN SALDANA M.D. [id number]
[2018-12-25] MEDS: CEFEPIME 1 GM in DEXTROSE 5%-WATER 100 ML IVPB SCH ×3 (01:29→17:15)
[2018-12-25] MEDS: FENTANYL INJECTION 500 MCG in DEXTROSE 5%-WATER - 90 ML IVPB SCH ×5 (01:31→22:25)
[2018-12-25] MEDS ORDERED: fentaNYL CITRATE 250 MCG/5 ML VIAL ONE ×4 (06:14→22:12)
[2018-12-25 06:21] LABS: BASO % 0.3 % (0-2.0); EOS % 0.1 % (0-4.5); HEMATOCRIT 24.7 % (35.4-49); HEMOGLOBIN 8.2 GM/dL (11.7-16.9); LYMPH % 6.6 % (8-40); MCHC 33.3 g/dl (32.0-35.9); MEAN CELL VOLUME 99.2 fl (80-96); MEAN PLT VOLUME 7.3 fl (7.5-11.1); MONO % 9.8 % (3.8-10.2); NEUT % 83.2 % (42.8-82.8); PLATELET COUNT 221 K/MM3 (134-434); RBC 2.49 M/mm3 (4.00-5.60); RDW 16.2 % (11.9-15.9); WHITE BLOOD COUNT 25.5 K/mm3 (4.0-10.0)
[2018-12-25 06:49] LABS: ALBUMIN 2.1 g/dl (3.4-5.0); ALK PHOS 59 U/L (45-117); ANION GAP 5 MMOL/L (8-16); BILIRUBIN,TOTAL 0.5 mg/dL (0.2-1); BLOOD UREA NITROGEN 22 mg/dL (7-18); CALCIUM 7.5 mg/dL (8.5-10.1); CHLORIDE 109 mmol/L (98-107); CO2 27 mmol/L (21-32); CREATININE 0.8 mg/dL (0.55-1.3); GLUCOSE,RANDOM 84 mg/dL (74-106); MAGNESIUM 1.7 mg/dL (1.8-2.4); PHOSPHOROUS 3.5 mg/dL (2.5-4.9); POTASSIUM 4.1 mmol/L (3.5-5.1); SGOT/AST 106 U/L (15-37); SGPT/ALT 34 U/L (13-61); SODIUM 141 mmol/L (136-145); TOT PROT 4.2 g/dl (6.4-8.2)
--- NOTE | 2018-12-25 07:48 | PN ---
Physical Exam: SUBJECTIVE: 73 year old male with PMH chronic back/neck pain, multiple spinal surgeries, HTN , HLD, atrial fibrillation on Eliquis, CHF, COPD, GERD, RA, peripheral neuropathy was sent to ED for spinal surgery 12/18/18. Pt had removal of hardware from C2-C7, laminectomy C2-T1 with posterior fusion of C2-T1. removal of hardware from L3-S1(retained screw at Right S1) lamienctomy of L1/L2 and L2/ L3 posterior fusion of L1 thru S1, repair of durotomy and cage placment L2-L3 . Pt lost 1800 cc of blood in OR, was given 5 units of PRBC and 6.5L of IV fluid. Pt was sent to ICU intubated and sedated. Pt has been fluid overloaded , CXR showing congestion. I saw and examined the patient today. Pt was sedated and intubated, unable to answer questions. OBJECTIVE: Vital Signs Period Temp Pulse Resp BP Sys/Dyson Pulse Ox Last 24 Hr 97.5 F-100.2 F 98-146 12-38 112-180/54-101 96-100 GENERAL: The patient is intubated and sedated. HEAD: Normal with no signs of trauma. EYES: PERRL, extraocular movements intact, sclera anicteric, conjunctiva clear. No ptosis. ENT: Nares patent, moist mucous membranes. NECK: Trachea midline, full range of motion, supple. LUNGS: bilateral basilar crackles. HEART: Regular rate and rhythm, S1, S2 without murmur, rub or gallop. ABDOMEN: Soft, nondistended, normoactive bowel sounds. EXTREMITIES: 2+ pulses, warm, well-perfused, no edema. NEUROLOGICAL: intubated and sedated. PSYCH: sedated. SKIN: Warm, dry, normal turgor, no rashes or lesions noted Laboratory Results - last 24 hr 12/21/18 12/24/18 12/24/18 08:30 05:30 09:05 WBC RBC Hgb Hct MCV MCH MCHC RDW Plt Count MPV Absolute Neuts (auto) Neutrophils % Neutrophils % (Manual) 86.0 H Band Neutrophils % 0.0 Lymphocytes % Lymphocytes % (Manual) 7.0 L Monocytes % Monocytes % (Manual) 7 Eosinophils % Eosinophils % (Manual) 0.0 Basophils % Basophils % (Manual) 0.0 Myelocytes % (Man) 0 Promyelocytes % (Man) 0 Blast Cells % (Manual) 0 Nucleated RBC % Metamyelocytes 0 Hypochromia 0 Platelet Estimate Normal Polychromasia 0 Poikilocytosis 0 Anisocytosis 1+ Microcytosis 0 Macrocytosis 1+ Ovalocytes 1+ Sodium Potassium Chloride Carbon Dioxide Anion Gap BUN Creatinine Creat Clearance w eGFR Random Glucose Calcium Phosphorus Magnesium Total Bilirubin AST ALT Alkaline Phosphatase Total Protein Albumin Urine Color Dk yellow Urine Appearance Cloudy Urine pH 5.0 Ur Specific [place] 1.027 Urine Protein 2+ H Urine Glucose (UA) Negative Urine Ketones Negative Urine Blood 3+ H Urine Nitrite Negative Urine Bilirubin Negative Urine Urobilinogen Negative Ur Leukocyte Esterase 2+ H Urine WBC (Auto) 120 Urine RBC (Auto) 55 Ur Epithelial Cells Rare Urine Bacteria Rare Urine Mucus Rare Crossmatch See Detail Crossmatch IS Only See Detail 12/25/18 12/25/18 05:30 05:30 WBC 25.5 H RBC 2.49 L Hgb 8.2 L Hct 24.7 L MCV 99.2 H MCH 33.0 MCHC 33.3 RDW 16.2 H Plt Count 221 MPV 7.3 L Absolute Neuts (auto) 21.2 H Neutrophils % 83.2 H Neutrophils % (Manual) Band Neutrophils % Lymphocytes % 6.6 L Lymphocytes % (Manual) Monocytes % 9.8 Monocytes % (Manual) Eosinophils % 0.1 Eosinophils % (Manual) Basophils % 0.3 Basophils % (Manual) Myelocytes % (Man) Promyelocytes % (Man) Blast Cells % (Manual) Nucleated RBC % 0 Metamyelocytes Hypochromia Platelet Estimate Polychromasia Poikilocytosis Anisocytosis Microcytosis Macrocytosis Ovalocytes Sodium 141 Potassium 4.1 Chloride 109 H Carbon Dioxide 27 Anion Gap 5 L BUN 22 H Creatinine 0.8 Creat Clearance w eGFR 94.76 Random Glucose 84 Calcium 7.5 L Phosphorus 3.5 Magnesium 1.7 L Total Bilirubin 0.5 AST 106 H ALT 34 Alkaline Phosphatase 59 Total Protein 4.2 L Albumin 2.1 L Urine Color Urine Appearance Urine pH Ur Specific [place] Urine Protein Urine Glucose (UA) Urine Ketones Urine Blood Urine Nitrite Urine Bilirubin Urine Urobilinogen Ur Leukocyte Esterase Urine WBC (Auto) Urine RBC (Auto) Ur Epithelial Cells Urine Bacteria Urine Mucus Crossmatch Crossmatch IS Only Active Medications Generic Name Dose Route Start Last Admin Trade Name Freq PRN Reason Stop Dose Admin Acetaminophen 1,000 mg 12/22/18 19:32 12/24/18 02:27 Ofirmev Injection - IVPB 1,000 mg Q6H PRN Administration PAIN LEVEL 1 - 3 Aspirin 300 mg 12/24/18 14:30 12/24/18 15:15 Asa - CA 300 mg DAILY BRIDGET Administration Chlorhexidine Gluconate 1 applic 12/22/18 22:00 12/23/18 21:03 Hibiclens For Decolonization - TP 1 applic HS BRIDGET Administration Heparin Sodium (Porcine) 5,000 unit 12/23/18 14:00 12/24/18 21:09 Heparin - SQ 5,000 unit TID BRIDGET Administration Lactated Ringer's 1,000 ml in 1,000 mls @ 125 mls/hr 12/22/18 19:15 12/24/18 05:10 Lactated Ringers Solution IV 125 mls/hr ASDIR BRIDGET Administration Fentanyl 500 mcg/ Dextrose 100 mls @ 10 mls/hr 12/23/18 21:30 12/25/18 01:31 IVPB 100 mcg/hr TITR BRIDGET 20 mls/hr Administration Protocol 50 MCG/HR Cefepime HCl 1 gm/ Dextrose 100 mls @ 200 mls/hr 12/24/18 18:00 12/25/18 01: 29 IVPB 200 mls/hr Q8H-IV BRIDGET Administration Protocol Midazolam HCl 100 mg/ Sodium 100 mls @ 1 mls/hr 12/24/18 19:45 12/24/18 19:30 Chloride IVPB 10 mg/hr TITR BRIDGET 10 mls/hr Administration Protocol 1 MG/HR Magnesium Sulfate 1 gm 12/25/18 07:38 Magnesium Sulfate IVPB 12/25/18 07:39 ONCE ONE Metoprolol Tartrate 5 mg 12/22/18 22:22 12/24/18 11:05 Lopressor Injection - IVPUSH 5 mg Q6H PRN Administration TACHYCARDIA (HR > 120) Midazolam HCl 2 mg 12/24/18 15:09 12/24/18 19:30 Versed - IVPUSH 2 mg Q2H PRN Administration AGITATION Mupirocin 1 applic 12/22/18 22:00 12/24/18 21:04 Bactroban Ointment (For Decolonization) - NS 12/27/18 21:59 1 applic BID BRIDGET Administration Ondansetron HCl 4 mg 12/22/18 19:07 Zofran Injection IVPUSH Q6H PRN NAUSEA Pantoprazole Sodium 40 mg 12/23/18 10:00 12/24/18 09:53 Protonix Iv IVPUSH 40 mg DAILY BRIDGET Administration IMAGING: * Lumbar Spine MRI (12/21/18): The height and alignment of the vertebral bodies remain unremarkable. L5-S1 mild broadbase disc bulge again seen reaching and probably slightly impinging both L5 nerve roots. L2-L3 moderate degenerative disc disease and mild broad-based disc bulge, probably impinging both L2 nerve roots and left L3 nerve root. Previously noted left paracentral disc herniation is not appreciated on this exam. L1-L2 moderately severe degenerative disc disease again seen with interval minimal fluid within the intervertebral disc space, anteriorly likely on the basis of degenerative changes. If clinically concerned correlation with contrast-enhanced MRI of the lumbar spine could be obtained to rule out discitis. Mild broad-based disc bulge again seen likely impinging both L1 nerve roots. * CXR (11/24/18): Internal development of small to mod b/l pleural effusions noted prob on basis of pulm vascular congestion Past Imaging * On 11/24/18 pt underwent Lexiscan MIBI which demonstrated no ischemic changes with stress, Occ PVCs, no significant arrhythmias. * ECHO 11/24/18: Moderate Asymmetric LVH. LA is severely dilated, mod MR, moderate pHTN, LV systolic function is normal and there is pleural effusion present. * 11/20/18 Stress test: Dilated left ventricle at baseline. Normal perfusion. * MRI of C-spine (10/2017) showed multilevel anterior and posterior cervical spine surgery, moderate probable extruded broad-based C6-C7 disc herniation * MRI of L-spine (10/2017) showed L1-L2 moderate degenerative disc disease with residual minimal disc bulge slightly to moderately narrowing the foramina; L2- L3 moderate degenerative disc disease with mild to moderate left paracentral disc herniation impinging the exiting left L3 nerve root and L2 nerve root in foramen, anterior epidural density resulting in moderately severe canal stenosis ; L5-S1 mild broad-based disc bulge reaching both L5 nerve roots ASSESSMENT AND PLAN: NEURO #S/p 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, laminectomy C2-T1 with posterior fusion of C-T1, removal of hardware from L3-S1 -Versed drip DC -Fentanyl 100 mcg -Zofran 4 mg Q6H IVP for nausea -IV Tylenol 1000 Q6H -Cervical drain 20 mL -Lumbar drain 40 mL -Drains removed today by Neurosurgery [place] WILDER #Acute Respiratory Failure; Stable on vent. -Mechanically ventilated -Versed drip was DC to attempt extubation -Pt is too altered to extubate at this time -Fentanyl drip increased to 100 mcg CV #Acute Blood loss -s/p 5U pRBCs given; 10.3/30>>9.3/27.3>>8.2/24.7 -serial CBCs -Monitor drain output #Fluid Overloaded -CXR showing pulmonary congestion -Lasix 40 mg BID -CXR tomorrow AM #CAD; s/p LAD stent (2018) -Cardiology recs DC Plavix, 1 year s/p PCI -ASA started per cardio and neurosurgery rec -ASA 300 mg suppository #Afib -Hold home Eliquis until 24 hours after drains removed per neurosurgery -Hold home Eliquis with downtrending H/H per cardio #Chronic Diastolic CHF -Lasix 40 mg IV BID #HTN/HLD -Metoprolol Tartrate 5 mg IVP Q6H PRN GI #GERD -IV Protonix 40 QD -Cont home meds when able RENAL #BPH -Prostate Cx s/p prostatectomy -Cont home meds when able HEME #Macrocytic Anemia -Cont home meds when able (Ferrous Sulfate, Folic acid) #Leukocytosis -WBC 24.3>>25.5>>21.7 -ID on board ID -Cefepime Day 1 -ID recs Cefepime 1g Q8H -UA positive for UTI -Pending urine culture -ID on board ONCOLOGY #Hx of Prostate Cancer; s/p prostatectomy PROPHYLAXIS -SQH/SCDs -Protonix 40 QD IVP FEN -No IVF -Hypomagnesium, continue to monitor and replete -NPO LINES -L radial, A line -RIJ central line -MARY drain x2 (upper/lower back) -cintron changed 12/24/18 Dispo -cont to monitor in ICU -full code Visit type - Emergency Visit Emergency Visit: Yes ED Registration Date: 12/18/18 Care time: The patient presented to the Emergency Department on the above date and was hospitalized for further evaluation of their emergent condition. - New Patient This patient is new to me today: No - Critical Care Critical Care patient: Yes Total Critical Care Time (in minutes): 35 Critical Care Statement: The care of this patient involved high complexity decision making to prevent further life threatening deterioration of the patient 's condition and/or to evaluate & treat vital organ system(s) failure or risk of failure. - Discharge Referral Referred to [facility] Med [facility].: No
[2018-12-25] MEDS: LACTATED RINGERS SOLUTION 1,000 ML/1,000 ML INFUS.BAG IV SCH (07:52)
[2018-12-25] MEDS: MIDAZOLAM 100 MG in SODIUM CHLORIDE 100 ML IVPB SCH (07:53)
[2018-12-25] MEDS: HEPARIN NA (PORCINE) 5,000 UNITS/ML 1ML VIAL SQ SCH ×3 (07:59→21:09)
[2018-12-25] MEDS ORDERED: MAGNESIUM SULF 50% (8.12 MEQ/2 ML-1 GM VIAL) IVPB ONE (08:15)
--- NOTE | 2018-12-25 08:28 | PN ---
Progress Note, Physician Chief Complaint: seen and examined in ICU He is fully sedated on vent this AM TELE: reviewed, controlled AF with no pauses and no V-ectopy. ID consult noted, abx were adjusted. No new fevers last 24 hours. MARY drains with less drainage this AM. H/H have dropped slightly - Current Medication List Current Medications: Active Medications Acetaminophen (Ofirmev Injection -) 1,000 mg IVPB Q6H PRN PRN Reason: PAIN LEVEL 1 - 3 Last Admin: 12/24/18 02:27 Dose: 1,000 mg Aspirin (Asa -) 300 mg AK DAILY BRIDGET Last Admin: 12/24/18 15:15 Dose: 300 mg Chlorhexidine Gluconate (Hibiclens For Decolonization -) 1 applic TP HS BRIGDET Last Admin: 12/23/18 21:03 Dose: 1 applic Heparin Sodium (Porcine) (Heparin -) 5,000 unit SQ TID BRIDGET Last Admin: 12/25/18 07:59 Dose: 5,000 unit Lactated Ringer's (Lactated Ringers Solution) 1,000 ml in 1,000 mls @ 125 mls/ hr IV ASDIR BRIDGET Last Admin: 12/25/18 07:52 Dose: 125 mls/hr Fentanyl 500 mcg/ Dextrose 100 mls @ 10 mls/hr IVPB TITR BRIDGET; Protocol Last Admin: 12/25/18 07:54 Dose: 100 mcg/hr, 20 mls/hr Cefepime HCl 1 gm/ Dextrose 100 mls @ 200 mls/hr IVPB Q8H-IV BRIDGET; Protocol Last Admin: 12/25/18 01:29 Dose: 200 mls/hr Midazolam HCl 100 mg/ Sodium (Chloride) 100 mls @ 1 mls/hr IVPB TITR BRIDGET; Protocol Last Admin: 12/25/18 07:53 Dose: 10 mg/hr, 10 mls/hr Metoprolol Tartrate (Lopressor Injection -) 5 mg IVPUSH Q6H PRN PRN Reason: TACHYCARDIA (HR > 120) Last Admin: 12/24/18 11:05 Dose: 5 mg Midazolam HCl (Versed -) 2 mg IVPUSH Q2H PRN PRN Reason: AGITATION Last Admin: 12/24/18 19:30 Dose: 2 mg Mupirocin (Bactroban Ointment (For Decolonization) -) 1 applic NS BID [facility] Stop: 12/27/18 21:59 Last Admin: 12/24/18 21:04 Dose: 1 applic Ondansetron HCl (Zofran Injection) 4 mg IVPUSH Q6H PRN PRN Reason: NAUSEA Pantoprazole Sodium (Protonix Iv) 40 mg IVPUSH DAILY [facility] Last Admin: 12/24/18 09:53 Dose: 40 mg - Objective Vital Signs: Vital Signs Temperature 97.5 F L 12/25/18 03:00 Pulse Rate 101 H 12/25/18 07:00 Respiratory Rate 18 12/25/18 07:00 Blood Pressure 141/79 12/25/18 07:00 O2 Sat by Pulse Oximetry (%) 100 12/24/18 18:07 Constitutional: Yes: Other (Intubated and sedated on vent) Cardiovascular: Yes: Pulse Irregular Respiratory: Yes: Other (= breath sounds bilaterally. Decreased at bases. No wheezing.) Gastrointestinal: Yes: Soft Genitourinary: Yes: Other (Bradshaw in place.) Edema: Yes Edema: LLE: 1+, RLE: 1+ Peripheral Pulses WNL: Yes Neurological: Yes: Other (mechanically ventilated, sedated) Labs: CBC, BMP 12/25/18 05:30 12/25/18 05:30 INR, PTT INR 1.27 (0.83-1.09) H 12/23/18 05:30 Microbiology 12/24/18 05:30 Blood - Peripheral Venous Blood Culture - Preliminary NO GROWTH OBTAINED AFTER 24 HOURS, INCUBATION TO CONTINUE FOR 4 DAYS. 12/24/18 03:00 Blood - Peripheral Venous Blood Culture - Preliminary NO GROWTH OBTAINED AFTER 24 HOURS, INCUBATION TO CONTINUE FOR 4 DAYS. Laboratory Tests 12/23/18 12/23/18 12/24/18 05:30 05:30 05:30 WBC 18.1 H Hgb 10.3 L 9.3 L Hct 30.0 L Plt Count 275 ABG pH ABG pCO2 at Pt Temp ABG pO2 at Pt Temp Oxygen Flow Rate Vent Mode Sodium 141 Potassium 4.7 BUN Creatinine 0.6 Calcium Phosphorus Magnesium Total Bilirubin AST ALT Alkaline Phosphatase Albumin 12/24/18 12/25/18 12/25/18 06:10 05:30 05:30 WBC 25.5 H Hgb 8.2 L Hct 24.7 L Plt Count 221 ABG pH 7.47 H ABG pCO2 at Pt Temp 30.9 L ABG pO2 at Pt Temp 127 H Oxygen Flow Rate 40% Vent Mode A/c Sodium 141 Potassium 4.1 BUN 22 H Creatinine 0.8 Calcium 7.5 L Phosphorus 3.5 Magnesium 1.7 L Total Bilirubin 0.5 AST 106 H ALT 34 Alkaline Phosphatase 59 Albumin 2.1 L - ....Imaging X-ray: Image Reviewed (+ ETT. Increased PVC. No clear infiltrate.) EKG: Image Reviewed Problem List - Problems (1) Back pain Code(s): M54.9 - DORSALGIA, UNSPECIFIED (2) Paroxysmal atrial fibrillation Code(s): I48.0 - PAROXYSMAL ATRIAL FIBRILLATION (3) CAD (coronary artery disease) Code(s): I25.10 - ATHSCL HEART DISEASE OF [place] CORONARY ARTERY W/O ANG PCTRS Qualifiers: Coronary Disease-Associated Artery/Lesion type: eek artery [place] vs. transplanted heart: eek heart Associated angina: without angina Qualified Code(s): I25.10 - Atherosclerotic heart disease of [place] coronary artery without angina pectoris (4) Hx of heart artery stent Code(s): Z95.5 - PRESENCE OF CORONARY ANGIOPLASTY IMPLANT AND GRAFT (5) HTN (hypertension) Code(s): I10 - ESSENTIAL (PRIMARY) HYPERTENSION Qualifiers: Hypertension type: essential hypertension Qualified Code(s): I10 - Essential (primary) hypertension (6) Pulmonary hypertension Code(s): I27.20 - PULMONARY HYPERTENSION, UNSPECIFIED (7) Anticoagulation management encounter Code(s): Z51.81 - ENCOUNTER FOR THERAPEUTIC DRUG LEVEL MONITORING; Z79.01 - HEARING AID SPECIALIST (CURRENT) USE OF ANTICOAGULANTS Assessment/Plan IMP: 1. Intractable neck pain, cervical and lumbar disc disease POD #3 Removal of hardware from C2-C7, laminectomy C2-T1 with posterior fusion of C2-T1. removal of hardware from L3-S1(retained screw at Right S1) lamienctomy of L1/L2 and L2/L3 posterior fusion of L1 thru S1, repair of durotomy and cage placment L2-L3 2.PHTN- prior asbestos exposure 3. CAD s/p PCI 4. Permanent AF 5. Post op fever REC: 1. Vent management as per ICU team; Daily CXR. Has received IV lasix last 2 days for volume overload, would dose again today BID as CXR still with congestion. 2. Blood cultures remain negative; seen by ID- abx adjusted. 3. H/H drifting down, drainage seems to be slowing. Follow H/H and transfuse if Hb < 8. 4. F/u post op CT scan official read. Was reviewed by Neurosurgery. 5. DVT Prophylaxis 6. Tele in ICU with IV Lopressor for rate control: thus far has remained adequately controlled. 8. ASA has been resumed (prior coronary PCI) 9. Full AC has been on hold post op. Given down drift in H/H, would hold today and plan to hopefully resume tomorrow if H/H stable. Will follow. D/W ICU team
[2018-12-25] MEDS ORDERED: FUROSEMIDE 40 MG/4 ML INJECTABLE VIAL IVPUSH ONE ×2 (09:00→11:27)
[2018-12-25] MEDS ORDERED: CEFEPIME HCL 1 GM VIAL (RESTRICTED TO ID) ONE ×2 (09:18→16:52)
[2018-12-25] MEDS ORDERED: DEXTROSE 5%-WATER 100 ML IVPB ONE ×2 (09:18→16:53)
[2018-12-25] MEDS: PANTOPRAZOLE SODIUM 40 MG VIAL IVPUSH SCH (09:52)
[2018-12-25] MEDS: ASPIRIN 300 MG SUPP.RECT PR SCH (09:52)
[2018-12-25] MEDS: MUPIROCIN 2% TOPICAL OINTMENT FOR DECOLONIZATION NS SCH ×2 (09:54→21:09)
--- NOTE | 2018-12-25 11:09 | PN ---
Progress Note (short form) - Note Progress Note: 73yo M s/p C2-t1 PCDF and L1-3 fusion, pt seen in the ICU. Continues to be vented. Pt WBC trending up and spiking low grade fevers. Last Vital Signs Temp Pulse Resp BP Pulse Ox 99.6 F 103 H 11 130/61 100 12/25/18 08:00 12/25/18 11:00 12/25/18 11:00 12/25/18 11:00 12/25/18 08:00 CBC, BMP 12/25/18 05:30 12/25/18 05:30 PE: Gen: vented Back: incisions are clean with no erythema or discharge, drains in place with serosanguinous drainage. Ext: moving all 4 spontaneously, no obvious weakness Problem List - Problems (1) Back pain Assessment/Plan: Plan -infectious work up per ICU/med team -continue drains for now. -will continue to follow. Problem List - Problems (1) Back pain Code(s): M54.9 - DORSALGIA, UNSPECIFIED
--- NOTE | 2018-12-25 11:24 | PN ---
Teaching Attending Note Name of Resident: Winnie Juan ATTENDING PHYSICIAN STATEMENT I saw and evaluated the patient. I reviewed the resident's note and discussed the case with the resident. I agree with the resident's findings and plan as documented. SUBJECTIVE: Patient seen and examined in the ICU. Remains intubated. AC Mode of vent, 40% FiO2. Hard collar in place. No pressors. CXR: Rotated. Consolidation LLL. Mild decrease in Pulmonary vascular congestion. Intake & Output 12/22/18 12/23/18 12/24/18 12/25/18 23:59 23:59 23:59 23:59 Intake Total 8535 2962 4256 1135 Output Total 2710 2120 1825 400 Balance 5857 842 2431 735 Weight 194 lb 237 lb 2 oz Last Vital Signs Temp Pulse Resp BP Pulse Ox 99.6 F 103 H 11 130/61 100 12/25/18 08:00 12/25/18 11:00 12/25/18 11:17 12/25/18 11:00 12/25/18 08:00 Active Medications Acetaminophen (Ofirmev Injection -) 1,000 mg IVPB Q6H PRN PRN Reason: PAIN LEVEL 1 - 3 Last Admin: 12/24/18 02:27 Dose: 1,000 mg Aspirin (Asa -) 300 mg [place] DAILY BRIDGET Last Admin: 12/25/18 09:52 Dose: 300 mg Chlorhexidine Gluconate (Hibiclens For Decolonization -) 1 applic TP HS BRIDGET Last Admin: 12/23/18 21:03 Dose: 1 applic Heparin Sodium (Porcine) (Heparin -) 5,000 unit SQ TID BRIDGET Last Admin: 12/25/18 07:59 Dose: 5,000 unit Lactated Ringer's (Lactated Ringers Solution) 1,000 ml in 1,000 mls @ 125 mls/ hr IV ASDIR BRIDGET Last Admin: 12/25/18 07:52 Dose: 125 mls/hr Fentanyl 500 mcg/ Dextrose 100 mls @ 10 mls/hr IVPB TITR BRIDGET; Protocol Last Admin: 12/25/18 10:51 Dose: 100 mcg/hr, 20 mls/hr Cefepime HCl 1 gm/ Dextrose 100 mls @ 200 mls/hr IVPB Q8H-IV BRIDGET; Protocol Last Admin: 12/25/18 09:52 Dose: 200 mls/hr Midazolam HCl 100 mg/ Sodium (Chloride) 100 mls @ 1 mls/hr IVPB TITR [facility]; Protocol Last Admin: 12/25/18 07:53 Dose: 10 mg/hr, 10 mls/hr Metoprolol Tartrate (Lopressor Injection -) 5 mg IVPUSH Q6H PRN PRN Reason: TACHYCARDIA (HR > 120) Last Admin: 12/24/18 11:05 Dose: 5 mg Midazolam HCl (Versed -) 2 mg IVPUSH Q2H PRN PRN Reason: AGITATION Last Admin: 12/24/18 19:30 Dose: 2 mg Mupirocin (Bactroban Ointment (For Decolonization) -) 1 applic NS BID [facility] Stop: 12/27/18 21:59 Last Admin: 12/25/18 09:54 Dose: 1 applic Ondansetron HCl (Zofran Injection) 4 mg IVPUSH Q6H PRN PRN Reason: NAUSEA Pantoprazole Sodium (Protonix Iv) 40 mg IVPUSH DAILY [facility] Last Admin: 12/25/18 09:52 Dose: 40 mg Gen: intubated, sedated Heart: RRR Lung: Bibasilar rales/rhonchi Abd: soft, nontender Ext: no edema Drains with serosanguinous fluid Laboratory Results - last 24 hr 12/21/18 12/24/18 12/25/18 08:30 05:30 05:30 WBC 25.5 H RBC 2.49 L Hgb 8.2 L Hct 24.7 L MCV 99.2 H MCH 33.0 MCHC 33.3 RDW 16.2 H Plt Count 221 MPV 7.3 L Absolute Neuts (auto) 21.2 H Neutrophils % 83.2 H Neutrophils % (Manual) 86.0 H Band Neutrophils % 0.0 Lymphocytes % 6.6 L Lymphocytes % (Manual) 7.0 L Monocytes % 9.8 Monocytes % (Manual) 7 Eosinophils % 0.1 Eosinophils % (Manual) 0.0 Basophils % 0.3 Basophils % (Manual) 0.0 Myelocytes % (Man) 0 Promyelocytes % (Man) 0 Blast Cells % (Manual) 0 Nucleated RBC % 0 Metamyelocytes 0 Hypochromia 0 Platelet Estimate Normal Polychromasia 0 Poikilocytosis 0 Anisocytosis 1+ Microcytosis 0 Macrocytosis 1+ Ovalocytes 1+ Sodium Potassium Chloride Carbon Dioxide Anion Gap BUN Creatinine Creat Clearance w eGFR Random Glucose Calcium Phosphorus Magnesium Total Bilirubin AST ALT Alkaline Phosphatase Total Protein Albumin Blood Type O POSITIVE Antibody Screen Negative Crossmatch See Detail Crossmatch IS Only See Detail 12/25/18 05:30 WBC RBC Hgb Hct MCV MCH MCHC RDW Plt Count MPV Absolute Neuts (auto) Neutrophils % Neutrophils % (Manual) Band Neutrophils % Lymphocytes % Lymphocytes % (Manual) Monocytes % Monocytes % (Manual) Eosinophils % Eosinophils % (Manual) Basophils % Basophils % (Manual) Myelocytes % (Man) Promyelocytes % (Man) Blast Cells % (Manual) Nucleated RBC % Metamyelocytes Hypochromia Platelet Estimate Polychromasia Poikilocytosis Anisocytosis Microcytosis Macrocytosis Ovalocytes Sodium 141 Potassium 4.1 Chloride 109 H Carbon Dioxide 27 Anion Gap 5 L BUN 22 H Creatinine 0.8 Creat Clearance w eGFR 94.76 Random Glucose 84 Calcium 7.5 L Phosphorus 3.5 Magnesium 1.7 L Total Bilirubin 0.5 AST 106 H ALT 34 Alkaline Phosphatase 59 Total Protein 4.2 L Albumin 2.1 L Blood Type Antibody Screen Crossmatch Crossmatch IS Only ASSESSMENT AND PLAN: Acute Respiratory Failure POD#2 CHELE, C2-T1/L3-S1/Laminectomy/L1-S1 Posterior Fusion/Cage Placement/ Durotomy repair Acute Blood Loss Anemia CAD Atrial Fibrillation LV Diastolic Dysfunction COPD Rheumatoid Arthritis HTN Hyperlipidemia h/o Prostate Ca - Lasix IVP BID - monitor H/H - Normal transfusion thresholds - monitor drain output - monitor urine output, creatinine - empiric antibiotics noted - rate control - Will resume anticoagulation when ok with surgery - Spontaneous breathing trials with hope of extubation - DVT/GI prophylaxis Dr Hampton critical care time spent in reviewing chart, evaluating patient and formulating plan 35 min
[2018-12-25 12:04] LABS: ANISOCYTOSIS 2+; MACROCYTOSIS 1+; OVALOCYTE 2+; PLATELET ESTIMATE NORMAL; TEAR DROP CELLS 2+
--- NOTE | 2018-12-25 14:18 | PN ---
Progress Note (short form) - Note Progress Note: alert cervical collar in place Vital Signs Period Temp Pulse Resp BP Sys/Dyson Pulse Ox Last 24 Hr 97.5 F-99.6 F 95-120 11-29 110-141/54-87 100-100 cor-rrr lungs decreased bs at bases abd soft,nt ext no edema +drains CBC, BMP 12/25/18 05:30 12/25/18 05:30 Microbiology 12/24/18 09:05 Urine - Urine Bradshaw Urine Culture - Preliminary 12/24/18 05:30 Blood - Peripheral Venous Blood Culture - Preliminary NO GROWTH OBTAINED AFTER 24 HOURS, INCUBATION TO CONTINUE FOR 4 DAYS. 12/24/18 03:00 Blood - Peripheral Venous Blood Culture - Preliminary NO GROWTH OBTAINED AFTER 24 HOURS, INCUBATION TO CONTINUE FOR 4 DAYS. a/p postop fever resolved pod #3 s/p surgery 3/12 with C2-T1 laminectomy and L3-S1 laminectomy persistent leukocytosis has drains in place awaiting neurosurgery f/u to examine the back day #1 cefepime continue antibiotics
[2018-12-25 14:56] LABS: BASO % 0.1 % (0-2.0); EOS % 0.2 % (0-4.5); HEMATOCRIT 24.5 % (35.4-49); LYMPH % 5.8 % (8-40); MCH 32.4 pg (25.7-33.7); MCHC 32.6 g/dl (32.0-35.9); MEAN CELL VOLUME 99.3 fl (80-96); MEAN PLT VOLUME 7.4 fl (7.5-11.1); MONO % 7.1 % (3.8-10.2); NEUT % 86.8 % (42.8-82.8); PLATELET COUNT 255 K/MM3 (134-434); RBC 2.47 M/mm3 (4.00-5.60); RDW 16.2 % (11.9-15.9); WHITE BLOOD COUNT 21.7 K/mm3 (4.0-10.0)
[2018-12-25 15:36] LABS: ALBUMIN 2.1 g/dl (3.4-5.0); ALK PHOS 65 U/L (45-117); ANION GAP 9 MMOL/L (8-16); BILIRUBIN,TOTAL 0.5 mg/dL (0.2-1); BLOOD UREA NITROGEN 21 mg/dL (7-18); CALCIUM 7.8 mg/dL (8.5-10.1); CHLORIDE 107 mmol/L (98-107); CO2 27 mmol/L (21-32); CREATININE 0.7 mg/dL (0.55-1.3); GLUCOSE,RANDOM 94 mg/dL (74-106); MAGNESIUM 1.9 mg/dL (1.8-2.4); PHOSPHOROUS 3.6 mg/dL (2.5-4.9); POTASSIUM 3.8 mmol/L (3.5-5.1); SGOT/AST 97 U/L (15-37); SGPT/ALT 36 U/L (13-61); SODIUM 142 mmol/L (136-145); TOT PROT 4.5 g/dl (6.4-8.2)
[2018-12-25 15:51] LABS: ANISOCYTOSIS 0; MACROCYTOSIS 0; PLATELET ESTIMATE NORMAL
--- NOTE | 2018-12-25 16:43 | PN ---
Progress Note (short form) - Note Progress Note: Plan to d/c MARY x 2 per attending. Mary's taken off of suction, removed without issue. Tip intact. Pt tolerated well. Ostiums covered with 4x4 and tegaderm. Resident and RN aware Problem List - Problems (1) Cervical myelopathy Code(s): G95.9 - DISEASE OF SPINAL CORD, UNSPECIFIED
[2018-12-25] MEDS: CHLORHEXIDINE GLUCONATE 4% CLEANSER FOR DECOLONIZATION TP SCH (21:08)
[2018-12-25] MEDS: MIDAZOLAM HCL 2 MG/2 ML SINGLE DOSE VIAL IVPUSH PRN (21:09)
--- NOTE | 2018-12-25 22:09 | PN ---
Progress Note, Physician - Current Medication List Current Medications: Active Medications Acetaminophen (Ofirmev Injection -) 1,000 mg IVPB Q6H PRN PRN Reason: PAIN LEVEL 1 - 3 Last Admin: 12/24/18 02:27 Dose: 1,000 mg Aspirin (Asa -) 300 mg [place] DAILY [facility] Last Admin: 12/25/18 09:52 Dose: 300 mg Chlorhexidine Gluconate (Hibiclens For Decolonization -) 1 applic TP HS [facility] Last Admin: 12/25/18 21:08 Dose: 1 applic Heparin Sodium (Porcine) (Heparin -) 5,000 unit SQ TID [facility] Last Admin: 12/25/18 21:09 Dose: 5,000 unit Fentanyl 500 mcg/ Dextrose 100 mls @ 10 mls/hr IVPB TITR [facility]; Protocol Last Admin: 12/25/18 17:16 Dose: 100 mcg/hr, 20 mls/hr Cefepime HCl 1 gm/ Dextrose 100 mls @ 200 mls/hr IVPB Q8H-IV [facility]; Protocol Last Admin: 12/25/18 17:15 Dose: 200 mls/hr Metoprolol Tartrate (Lopressor Injection -) 5 mg IVPUSH Q6H PRN PRN Reason: TACHYCARDIA (HR > 120) Last Admin: 12/24/18 11:05 Dose: 5 mg Midazolam HCl (Versed -) 2 mg IVPUSH Q2H PRN PRN Reason: AGITATION Last Admin: 12/25/18 21:09 Dose: 2 mg Mupirocin (Bactroban Ointment (For Decolonization) -) 1 applic NS BID [facility] Stop: 12/27/18 21:59 Last Admin: 12/25/18 21:09 Dose: 1 applic Ondansetron HCl (Zofran Injection) 4 mg IVPUSH Q6H PRN PRN Reason: NAUSEA Pantoprazole Sodium (Protonix Iv) 40 mg IVPUSH DAILY [facility] Last Admin: 12/25/18 09:52 Dose: 40 mg - Objective Vital Signs: Vital Signs Temperature 99.2 F 12/25/18 15:00 Pulse Rate 99 H 12/25/18 18:00 Respiratory Rate 17 12/25/18 21:18 Blood Pressure 132/59 L 12/25/18 18:00 O2 Sat by Pulse Oximetry (%) 98 12/25/18 09:20 Labs: CBC, BMP 12/25/18 13:51 12/25/18 13:51 INR, PTT INR 1.27 (0.83-1.09) H 12/23/18 05:30 Problem List - Problems (1) Back pain Code(s): M54.9 - DORSALGIA, UNSPECIFIED (2) Anemia Code(s): D64.9 - ANEMIA, UNSPECIFIED (3) Paroxysmal atrial fibrillation Code(s): I48.0 - PAROXYSMAL ATRIAL FIBRILLATION (4) CAD (coronary artery disease) Code(s): I25.10 - ATHSCL HEART DISEASE OF [place] CORONARY ARTERY W/O ANG PCTRS Qualifiers: Coronary Disease-Associated Artery/Lesion type: [place] artery [place] vs. transplanted heart: [place] heart Associated angina: without angina Qualified Code(s): I25.10 - Atherosclerotic heart disease of [place] coronary artery without angina pectoris (5) GERD (gastroesophageal reflux disease) Code(s): K21.9 - GASTRO-ESOPHAGEAL REFLUX DISEASE WITHOUT ESOPHAGITIS (6) HLD (hyperlipidemia) Code(s): E78.5 - HYPERLIPIDEMIA, UNSPECIFIED (7) HTN (hypertension) Code(s): I10 - ESSENTIAL (PRIMARY) HYPERTENSION Qualifiers: Hypertension type: essential hypertension Qualified Code(s): I10 - Essential (primary) hypertension (8) Hx of heart artery stent Code(s): Z95.5 - PRESENCE OF CORONARY ANGIOPLASTY IMPLANT AND GRAFT (9) COPD (chronic obstructive pulmonary disease) Code(s): J44.9 - CHRONIC OBSTRUCTIVE PULMONARY DISEASE, UNSPECIFIED (10) Congestive heart failure Code(s): I50.9 - HEART FAILURE, UNSPECIFIED Qualifiers: Heart failure type: unspecified Heart failure chronicity: acute Qualified Code(s): I50.9 - Heart failure, unspecified
[2018-12-26] MEDS ORDERED: fentaNYL CITRATE 250 MCG/5 ML VIAL ONE ×4 (02:44→21:28)
[2018-12-26] MEDS ORDERED: CEFEPIME HCL 1 GM VIAL (RESTRICTED TO ID) ONE ×3 (02:45→16:35)
[2018-12-26] MEDS ORDERED: DEXTROSE 5%-WATER 100 ML IVPB ONE ×3 (02:45→16:35)
[2018-12-26] MEDS: MIDAZOLAM HCL 2 MG/2 ML SINGLE DOSE VIAL IVPUSH PRN ×4 (02:45→20:49)
[2018-12-26] MEDS: CEFEPIME 1 GM in DEXTROSE 5%-WATER 100 ML IVPB SCH ×3 (03:30→18:47)
[2018-12-26] MEDS ORDERED: MIDAZOLAM HCL 2 MG/2 ML SINGLE DOSE VIAL IVPUSH ONE ×3 (03:59→23:31)
[2018-12-26] MEDS: MORPHINE SULFATE 2 MG/ML VIAL IVPUSH PRN ×4 (05:19→20:57)
[2018-12-26] MEDS: HEPARIN NA (PORCINE) 5,000 UNITS/ML 1ML VIAL SQ SCH ×3 (05:20→21:36)
[2018-12-26] MEDS: ACETAMINOPHEN 1000 MG/100 ML VIAL (NON FORMULARY) IVPB PRN ×3 (05:23→21:15)
[2018-12-26 06:31] LABS: BASO % 0.1 % (0-2.0); EOS % 0.5 % (0-4.5); HEMATOCRIT 22.5 % (35.4-49); HEMOGLOBIN 7.6 GM/dL (11.7-16.9); LYMPH % 5.9 % (8-40); MCH 32.9 pg (25.7-33.7); MCHC 33.8 g/dl (32.0-35.9); MEAN CELL VOLUME 97.6 fl (80-96); MEAN PLT VOLUME 7.7 fl (7.5-11.1); NEUT % 86.5 % (42.8-82.8); PLATELET COUNT 281 K/MM3 (134-434); RBC 2.31 M/mm3 (4.00-5.60); RDW 15.9 % (11.9-15.9); WHITE BLOOD COUNT 20.7 K/mm3 (4.0-10.0)
[2018-12-26 07:19] LABS: ALK PHOS 65 U/L (45-117); ANION GAP 8 MMOL/L (8-16); BILIRUBIN,TOTAL 0.8 mg/dL (0.2-1); BLOOD UREA NITROGEN 23 mg/dL (7-18); CALCIUM 7.4 mg/dL (8.5-10.1); CHLORIDE 107 mmol/L (98-107); CO2 28 mmol/L (21-32); CREATININE 0.7 mg/dL (0.55-1.3); GLUCOSE,RANDOM 100 mg/dL (74-106); MAGNESIUM 1.7 mg/dL (1.8-2.4); PHOSPHOROUS 3.8 mg/dL (2.5-4.9); POTASSIUM 3.9 mmol/L (3.5-5.1); SGOT/AST 86 U/L (15-37); SGPT/ALT 38 U/L (13-61); SODIUM 143 mmol/L (136-145); TOT PROT 4.4 g/dl (6.4-8.2)
--- NOTE | 2018-12-26 07:36 | PN ---
Progress Note, Physician History of Present Illness: intubated and sedated off versed drip since 12/25 12pm, on fentanyl drip had MARY drain removed yesterday afternoon 900cc of UOP overnight - Current Medication List Current Medications: Active Medications Acetaminophen (Ofirmev Injection -) 1,000 mg IVPB Q6H PRN PRN Reason: PAIN LEVEL 1 - 3 Last Admin: 12/26/18 05:23 Dose: 1,000 mg Aspirin (Asa -) 300 mg [place] DAILY [facility] Last Admin: 12/25/18 09:52 Dose: 300 mg Chlorhexidine Gluconate (Hibiclens For Decolonization -) 1 applic TP HS [facility] Last Admin: 12/25/18 21:08 Dose: 1 applic Heparin Sodium (Porcine) (Heparin -) 5,000 unit SQ TID [facility] Last Admin: 12/26/18 05:20 Dose: 5,000 unit Fentanyl 500 mcg/ Dextrose 100 mls @ 10 mls/hr IVPB TITR [facility]; Protocol Last Titration: 12/26/18 07:20 Dose: 50 mcg/hr, 10 mls/hr Cefepime HCl 1 gm/ Dextrose 100 mls @ 200 mls/hr IVPB Q8H-IV [facility]; Protocol Last Admin: 12/26/18 03:30 Dose: 200 mls/hr Metoprolol Tartrate (Lopressor Injection -) 5 mg IVPUSH Q6H PRN PRN Reason: TACHYCARDIA (HR > 120) Last Admin: 12/24/18 11:05 Dose: 5 mg Midazolam HCl (Versed -) 2 mg IVPUSH Q2H PRN PRN Reason: AGITATION Last Admin: 12/26/18 02:45 Dose: 2 mg Morphine Sulfate (Morphine Sulfate) 2 mg IVPUSH Q4H PRN PRN Reason: PAIN LEVEL 1-5 Last Admin: 12/26/18 05:19 Dose: 2 mg Mupirocin (Bactroban Ointment (For Decolonization) -) 1 applic NS BID [facility] Stop: 12/27/18 21:59 Last Admin: 12/25/18 21:09 Dose: 1 applic Ondansetron HCl (Zofran Injection) 4 mg IVPUSH Q6H PRN PRN Reason: NAUSEA Pantoprazole Sodium (Protonix Iv) 40 mg IVPUSH DAILY [facility] Last Admin: 12/25/18 09:52 Dose: 40 mg - Objective Vital Signs: Vital Signs Temperature 98.6 F 12/26/18 06:00 Pulse Rate 103 H 12/26/18 06:00 Respiratory Rate 15 12/26/18 06:41 Blood Pressure 130/61 12/26/18 06:00 O2 Sat by Pulse Oximetry (%) 100 12/25/18 22:00 Constitutional: Yes: Calm Eyes: Yes: Conjunctiva Clear, PERRL HENT: Yes: Atraumatic, Normocephalic Neck: Yes: Other (in C-collar) Cardiovascular: Yes: Regular Rate and Rhythm. No: Murmur Respiratory: Yes: Rhonchi. No: Stridor, Wheezes Gastrointestinal: Yes: Normal Bowel Sounds, Soft Genitourinary: Yes: Bradshaw Present. No: Hematuria Extremities: No: Erythema Edema: Yes Edema: LUE: 1+, RUE: 1+ Peripheral Pulses WNL: Yes Wound/Incision: Yes: Other Labs: CBC, BMP 12/26/18 05:20 12/26/18 05:20 INR, PTT INR 1.27 (0.83-1.09) H 12/23/18 05:30 Assessment/Plan 73 yr old man with hx chronic back/neck pain s/p multiple spinal surgeries, HTN , HLD, atrial fibrillation on Eliquis, CHF, COPD, GERD, RA, peripheral neuropathy POD #4 from spinal surgery. Pt has been fluid overloaded, CXR showing congestion. NEURO - op: 12/22/18, POD#4 -Versed drip discontinued 3, prn versed pushes for sedation -Fentanyl 100 mcg (pt is allergic to propofol) and ofirmev for pain/fever -Zofran 4 mg Q6H IVP for nausea -Drains removed 3 PULMONARY -Mechanically ventilated 600/11/ FiO2 40, PEEP 5 -Versed drip was DC'd to attempt extubation, cxy this am with increased congestive changes in cxy, will initiate lasix drip today for more aggressive diuresis. -monitor Bun/Cr. CV - Afib/HTN/CHF/CAD s/p stent in 2018 #Acute Blood loss - blood loss of 1800 cc in OR, was given 5 units of PRBC and 6.5L of IV fluid. h/h now trending down -serial CBCs, defer AC(eliquis) for Afib and CAD due to the decrease in h/h, currently on ASA suppository only - Metoprolol Tartrate 5 mg IVP Q6H chemo(changed from prn) for rate control - tranfuse 2units prbc's, will give 1 dose of 40mg ivpush as bolus of lasix post -transfusion - trend cardiac enzymes to check for any acute myocardial injury to explain fluid overload, repeat EKG without acute changes, repeat echo on Friday ID -WBC now trending down, afebrile, possible lung or urine source, txment emperic: -Cefepime Day 2 -Cefepime 1g Q8H -UA positive for UTI, but urine cx negative and bld cx negative PROPHYLAXIS -SCDs, defer medical ac due to drop in h/h -Protonix 40 QD IVP FEN -No IVF, repleted mag -NPO; to start NGT feeds with 2 sherman HN 10ml/hr x 24 hours and increase 10 ml every 6 hours to goal rate of 45 ml/hr x 24 hours to provide 2160kcal, 90gm pro , 756ml free water with additional 5 ml water flush to provide additional 125ml free water, with -Target volume =1080ml to decr overall fluid intake, however there are no NGTs to initiate feeds today. LINES -L radial -RIJ central line and left A-line 12/22 -abdulaziz changed 12/24/18 Dispo -cont to monitor in ICU -full code
--- NOTE | 2018-12-26 08:22 | PN ---
Progress Note (short form) - Note Progress Note: sedated remains intubated drains removed Vital Signs Period Temp Pulse Resp BP Sys/Dyson Pulse Ox Last 24 Hr 98.6 F-100.1 F 96-116 11-18 110-141/58-79 98-100 cor-rrr lungs decreased bs at bases abd soft,nt ext edema both arms no lower extremity edema dressing on back- being changed by surgery CBC, BMP 12/26/18 05:20 12/26/18 05:20 cxray with increased effusions right greater then left, increased congestion Microbiology 12/24/18 05:30 Blood - Peripheral Venous Blood Culture - Preliminary NO GROWTH OBTAINED AFTER 48 HOURS, INCUBATION TO CONTINUE FOR 3 DAYS. 12/24/18 03:00 Blood - Peripheral Venous Blood Culture - Preliminary NO GROWTH OBTAINED AFTER 48 HOURS, INCUBATION TO CONTINUE FOR 3 DAYS. 12/24/18 16:50 Sputum - Endotrachea Suction/Ventilator Gram Stain - Final 12/24/18 09:05 Urine - Urine Bradshaw Urine Culture - Preliminary a/p postop fever resolved pod #4 s/p surgery 3/12 with C2-T1 laminectomy and L3-S1 laminectomy leukocytosis improved drains removed by surgery awaiting neurosurgery f/u to examine the back day #2 cefepime continue antibiotics anemia- ?transfusion
--- NOTE | 2018-12-26 08:28 | PN ---
Progress Note, Physician Chief Complaint: seen and examined in ICU Remains intubated, sedated. FIO2 40% TELE: controlled AF When sedation off, agitated and moving all 4 extremities. History of Present Illness: Cultures negative. Low grade fever. CXR appears more congested today and H/H has drifted down below 8. - Current Medication List Current Medications: Active Medications Acetaminophen (Ofirmev Injection -) 1,000 mg IVPB Q6H PRN PRN Reason: PAIN LEVEL 1 - 3 Last Admin: 12/26/18 05:23 Dose: 1,000 mg Aspirin (Asa -) 300 mg [place] DAILY [facility] Last Admin: 12/25/18 09:52 Dose: 300 mg Chlorhexidine Gluconate (Hibiclens For Decolonization -) 1 applic TP HS [facility] Last Admin: 12/25/18 21:08 Dose: 1 applic Heparin Sodium (Porcine) (Heparin -) 5,000 unit SQ TID [facility] Last Admin: 12/26/18 05:20 Dose: 5,000 unit Fentanyl 500 mcg/ Dextrose 100 mls @ 10 mls/hr IVPB TITR [facility]; Protocol Last Titration: 12/26/18 07:20 Dose: 50 mcg/hr, 10 mls/hr Cefepime HCl 1 gm/ Dextrose 100 mls @ 200 mls/hr IVPB Q8H-IV [facility]; Protocol Last Admin: 12/26/18 03:30 Dose: 200 mls/hr Metoprolol Tartrate (Lopressor Injection -) 5 mg IVPUSH Q6H PRN PRN Reason: TACHYCARDIA (HR > 120) Last Admin: 12/24/18 11:05 Dose: 5 mg Midazolam HCl (Versed -) 2 mg IVPUSH Q2H PRN PRN Reason: AGITATION Last Admin: 12/26/18 02:45 Dose: 2 mg Morphine Sulfate (Morphine Sulfate) 2 mg IVPUSH Q4H PRN PRN Reason: PAIN LEVEL 1-5 Last Admin: 12/26/18 05:19 Dose: 2 mg Mupirocin (Bactroban Ointment (For Decolonization) -) 1 applic NS BID [facility] Stop: 12/27/18 21:59 Last Admin: 12/25/18 21:09 Dose: 1 applic Ondansetron HCl (Zofran Injection) 4 mg IVPUSH Q6H PRN PRN Reason: NAUSEA Pantoprazole Sodium (Protonix Iv) 40 mg IVPUSH DAILY [facility] Last Admin: 12/25/18 09:52 Dose: 40 mg - Objective Vital Signs: Vital Signs Temperature 98.6 F 12/26/18 06:00 Pulse Rate 103 H 12/26/18 06:00 Respiratory Rate 15 12/26/18 06:41 Blood Pressure 130/61 12/26/18 06:00 O2 Sat by Pulse Oximetry (%) 100 12/25/18 22:00 Constitutional: Yes: No Distress HENT: Yes: Other (+ ETT) Cardiovascular: Yes: Pulse Irregular Respiratory: Yes: Other (= breath sounds bilaterally.no wheezing.) Gastrointestinal: Yes: Soft Edema: No (venodynes in place) Neurological: Yes: Other (intubated, sedate but opens eyes to name.) Labs: CBC, BMP 12/26/18 05:20 12/26/18 05:20 INR, PTT INR 1.27 (0.83-1.09) H 12/23/18 05:30 Microbiology 12/24/18 16:50 Sputum - Endotrachea Suction/Ventilator Gram Stain - Final 12/24/18 09:05 Urine - Urine Bradshaw Urine Culture - Preliminary 12/24/18 05:30 Blood - Peripheral Venous Blood Culture - Preliminary NO GROWTH OBTAINED AFTER 48 HOURS, INCUBATION TO CONTINUE FOR 3 DAYS. 12/24/18 03:00 Blood - Peripheral Venous Blood Culture - Preliminary NO GROWTH OBTAINED AFTER 48 HOURS, INCUBATION TO CONTINUE FOR 3 DAYS. Laboratory Tests 12/25/18 12/25/18 12/26/18 05:30 13:51 05:20 WBC 25.5 H 20.7 H Hgb 8.0 L 7.6 L RDW 15.9 Plt Count 255 Sodium Potassium BUN Creatinine AST ALT 12/26/18 05:20 WBC Hgb RDW Plt Count Sodium 143 Potassium 3.9 BUN 23 H Creatinine 0.7 AST 86 H ALT 38 - ....Imaging X-ray: Image Reviewed (increased PVC with fluid in fissure) EKG: Pending Problem List - Problems (1) Back pain Code(s): M54.9 - DORSALGIA, UNSPECIFIED (2) Paroxysmal atrial fibrillation Code(s): I48.0 - PAROXYSMAL ATRIAL FIBRILLATION (3) CAD (coronary artery disease) Code(s): I25.10 - ATHSCL HEART DISEASE OF [place] CORONARY ARTERY W/O ANG PCTRS Qualifiers: Coronary Disease-Associated Artery/Lesion type: [place] artery [place] vs. transplanted heart: [place] heart Associated angina: without angina Qualified Code(s): I25.10 - Atherosclerotic heart disease of [place] coronary artery without angina pectoris (4) Hx of heart artery stent Code(s): Z95.5 - PRESENCE OF CORONARY ANGIOPLASTY IMPLANT AND GRAFT (5) HTN (hypertension) Code(s): I10 - ESSENTIAL (PRIMARY) HYPERTENSION Qualifiers: Hypertension type: essential hypertension Qualified Code(s): I10 - Essential (primary) hypertension (6) Pulmonary hypertension Code(s): I27.20 - PULMONARY HYPERTENSION, UNSPECIFIED (7) Anticoagulation management encounter Code(s): Z51.81 - ENCOUNTER FOR THERAPEUTIC DRUG LEVEL MONITORING; Z79.01 - USP (CURRENT) USE OF ANTICOAGULANTS Assessment/Plan IMP: 1. Intractable neck pain, cervical and lumbar disc disease POD #4 Removal of hardware from C2-C7, laminectomy C2-T1 with posterior fusion of C2-T1. removal of hardware from L3-S1(retained screw at Right S1) lamienctomy of L1/L2 and L2/L3 posterior fusion of L1 thru S1, repair of durotomy and cage placment L2-L3 2. PHTN, chronic 3. CAD s/p PCI 4. Permanent AF 5. Acute on chronic diastolic CHF 6. Moderate MR 7. Post op fever: cultures negative. 8. Anemia REC: 1. Vent management as per ICU team: worsening volume overload. Will start Lasix gtts for steady diuresis, less likely to cause abrupt drops in BP. Daily CXR. Cycle cardiac enzymes/ repeat ECG/ to repeat echo. 2. Blood cultures remain negative; ID following. 3. H/H drifting down: will transfuse 2UPRBCs, with diuresis as above.Follow H/H. 4. F/u post op CT scan official read. Was reviewed by Neurosurgery. 5. DVT Prophylaxis 6. Tele in ICU with IV Lopressor for rate control: thus far has remained adequately controlled. 8. ASA has been resumed (prior coronary PCI) 9. Holding full AC for AF in post op setting with drop in H/H. Updated on his overall condition yesterday. Will follow.
[2018-12-26] MEDS ORDERED: MAGNESIUM SULF 50% (8.12 MEQ/2 ML-1 GM VIAL) IVPB ONE (09:30)
[2018-12-26] MEDS ORDERED: PT OWN MED DRAWER 7, Y5N ONE (10:04)
[2018-12-26] MEDS: FUROSEMIDE INJECTION 100 MG in SODIUM CHLORIDE 90 ML IVPB SCH (10:12)
[2018-12-26] MEDS: PANTOPRAZOLE SODIUM 40 MG VIAL IVPUSH SCH (10:20)
[2018-12-26] MEDS: ASPIRIN 300 MG SUPP.RECT PR SCH (10:20)
[2018-12-26] MEDS: MUPIROCIN 2% TOPICAL OINTMENT FOR DECOLONIZATION NS SCH ×2 (10:21→21:36)
[2018-12-26] MEDS: FENTANYL INJECTION 500 MCG in DEXTROSE 5%-WATER - 90 ML IVPB SCH ×3 (10:32→21:35)
--- NOTE | 2018-12-26 10:50 | PN ---
Teaching Attending Note Name of Resident: Vinh Goldstein ATTENDING PHYSICIAN STATEMENT I saw and evaluated the patient. I reviewed the resident's note and discussed the case with the resident. I agree with the resident's findings and plan as documented. SUBJECTIVE: Pt seen and examined in the ICU. Remains intubated, sedated. No pressors. Vented on volume assist control with 40% FiO2. OBJECTIVE: Vital Signs Period Temp Pulse Resp BP Sys/Dyson Pulse Ox Last 24 Hr 98.6 F-100.1 F 96-116 11-18 110-141/59-79 100-100 Intake & Output 12/23/18 12/24/18 12/25/18 12/26/18 23:59 23:59 23:59 23:59 Intake Total 2962 4256 1614 340 Output Total 2120 1825 1760 Balance 842 2431 -146 340 Weight 87.997 kg 107.558 kg 106.186 kg Gen: intubated, sedated Heart: RRR Lung: scattered rhonchi Abd: soft, nontender Ext: + edema CBC, BMP 12/26/18 05:20 12/26/18 05:20 Active Medications Acetaminophen (Ofirmev Injection -) 1,000 mg IVPB Q6H PRN PRN Reason: PAIN LEVEL 1 - 3 Last Admin: 12/26/18 05:23 Dose: 1,000 mg Aspirin (Asa -) 300 mg [place] DAILY [facility] Last Admin: 12/26/18 10:20 Dose: 300 mg Chlorhexidine Gluconate (Hibiclens For Decolonization -) 1 applic TP HS [facility] Last Admin: 12/25/18 21:08 Dose: 1 applic Heparin Sodium (Porcine) (Heparin -) 5,000 unit SQ TID [facility] Last Admin: 12/26/18 05:20 Dose: 5,000 unit Fentanyl 500 mcg/ Dextrose 100 mls @ 10 mls/hr IVPB TITR [facility]; Protocol Last Admin: 12/26/18 10:32 Dose: 50 mcg/hr, 10 mls/hr Cefepime HCl 1 gm/ Dextrose 100 mls @ 200 mls/hr IVPB Q8H-IV [facility]; Protocol Last Admin: 12/26/18 10:16 Dose: 200 mls/hr Furosemide 100 mg/ Sodium (Chloride) 100 mls @ 10 mls/hr IVPB ASDIR [facility]; Protocol Last Admin: 12/26/18 10:12 Dose: 10 mg/h, 10 mls/hr Metoprolol Tartrate (Lopressor Injection -) 5 mg IVPUSH Q6H PRN PRN Reason: TACHYCARDIA (HR > 120) Last Admin: 12/24/18 11:05 Dose: 5 mg Midazolam HCl (Versed -) 2 mg IVPUSH Q2H PRN PRN Reason: AGITATION Last Admin: 12/26/18 02:45 Dose: 2 mg Morphine Sulfate (Morphine Sulfate) 2 mg IVPUSH Q4H PRN PRN Reason: PAIN LEVEL 1-5 Last Admin: 12/26/18 05:19 Dose: 2 mg Mupirocin (Bactroban Ointment (For Decolonization) -) 1 applic NS BID [facility] Stop: 12/27/18 21:59 Last Admin: 12/26/18 10:21 Dose: 1 applic Ondansetron HCl (Zofran Injection) 4 mg IVPUSH Q6H PRN PRN Reason: NAUSEA Pantoprazole Sodium (Protonix Iv) 40 mg IVPUSH DAILY [facility] Last Admin: 12/26/18 10:20 Dose: 40 mg ASSESSMENT AND PLAN: s/p CHELE C2-T1/L3-S1/Laminectomy/L1-S1 Posterior Fusion/Cage Placement/Durotomy repair Acute Respiratory Failure Acute Blood Loss Anemia CAD Atrial Fibrillation Acute on Chronic Diastolic Heart Failure Volume Overload Pneumonia UTI COPD Rheumatoid Arthritis HTN Hyperlipidemia h/o Prostate Ca - monitor H/H - transfuse as needed - lasix today - monitor urine output, creatinine - keep net negative - continue antibiotics - rate control - holding anticoagulation - lighten sedation in AM to assess mental status - spontaneous breathing trials as tolerated when mental status improved - DVT/GI prophylaxis critical care time spent in reviewing chart, evaluating patient and formulating plan 35 min
--- NOTE | 2018-12-26 13:11 | EKG ---
Test Reason : Blood Pressure : / mmHG Vent. Rate : 099 BPM Atrial Rate : 110 BPM P-R Int : 000 ms QRS Dur : 096 ms QT Int : 356 ms P-R-T Axes : 000 014 237 degrees QTc Int : 456 ms ATRIAL FIBRILLATION LOW VOLTAGE QRS NONSPECIFIC T WAVE ABNORMALITY ABNORMAL ECG WHEN COMPARED WITH ECG OF 23-DEC-2018 09:48, NO SIGNIFICANT CHANGE WAS FOUND Confirmed by MD BEN, ADELINA ([id number]) on 12/26/2018 1:11:18 PM Referred By: Mir MEDINA Confirmed By:ADELINA CONTRERAS MD
[2018-12-26 13:57] LABS: OVALOCYTE 1+; PLATELET ESTIMATE ADEQUATE
[2018-12-26] MEDS ORDERED: MIDAZOLAM HCL 2 MG/2 ML SINGLE DOSE VIAL ONE ×2 (16:35→22:21)
[2018-12-26] MEDS: CHLORHEXIDINE GLUCONATE 4% CLEANSER FOR DECOLONIZATION TP SCH (21:34)
--- NOTE | 2018-12-26 23:33 | PN ---
Progress Note, Physician - Current Medication List Current Medications: Active Medications Aspirin (Asa -) 300 mg [place] DAILY [facility] Last Admin: 12/26/18 10:20 Dose: 300 mg Chlorhexidine Gluconate (Hibiclens For Decolonization -) 1 applic TP HS [facility] Last Admin: 12/26/18 21:34 Dose: 1 applic Heparin Sodium (Porcine) (Heparin -) 5,000 unit SQ TID [facility] Last Admin: 12/26/18 21:36 Dose: 5,000 unit Fentanyl 500 mcg/ Dextrose 100 mls @ 10 mls/hr IVPB TITR [facility]; Protocol Last Admin: 12/26/18 21:35 Dose: 100 mcg/hr, 20 mls/hr Cefepime HCl 1 gm/ Dextrose 100 mls @ 200 mls/hr IVPB Q8H-IV [facility]; Protocol Last Admin: 12/26/18 18:47 Dose: 200 mls/hr Furosemide 100 mg/ Sodium (Chloride) 100 mls @ 10 mls/hr IVPB ASDIR [facility]; Protocol Last Admin: 12/26/18 10:12 Dose: 10 mg/h, 10 mls/hr Metoprolol Tartrate (Lopressor Injection -) 5 mg IVPUSH Q6H PRN PRN Reason: TACHYCARDIA (HR > 120) Last Admin: 12/24/18 11:05 Dose: 5 mg Midazolam HCl (Versed -) 2 mg IVPUSH Q2H PRN PRN Reason: AGITATION Last Admin: 12/26/18 20:49 Dose: 2 mg Midazolam HCl (Versed -) 4 mg IVPUSH ONCE ONE Stop: 12/26/18 23:32 Morphine Sulfate (Morphine Sulfate) 2 mg IVPUSH Q6H PRN PRN Reason: PAIN LEVEL 7 - 10 Last Admin: 12/26/18 20:57 Dose: 2 mg Mupirocin (Bactroban Ointment (For Decolonization) -) 1 applic NS BID [facility] Stop: 12/27/18 21:59 Last Admin: 12/26/18 21:36 Dose: 1 applic Ondansetron HCl (Zofran Injection) 4 mg IVPUSH Q6H PRN PRN Reason: NAUSEA Pantoprazole Sodium (Protonix Iv) 40 mg IVPUSH DAILY [facility] Last Admin: 12/26/18 10:20 Dose: 40 mg - Objective Vital Signs: Vital Signs Temperature 99.7 F H 12/26/18 20:00 Pulse Rate 89 12/26/18 22:00 Respiratory Rate 13 12/26/18 22:00 Blood Pressure 134/75 12/26/18 22:00 O2 Sat by Pulse Oximetry (%) 100 12/26/18 22:00 Labs: CBC, BMP 12/26/18 05:20 12/26/18 05:20 INR, PTT INR 1.27 (0.83-1.09) H 12/23/18 05:30 Problem List - Problems (1) Back pain Code(s): M54.9 - DORSALGIA, UNSPECIFIED (2) Anemia Code(s): D64.9 - ANEMIA, UNSPECIFIED (3) Paroxysmal atrial fibrillation Code(s): I48.0 - PAROXYSMAL ATRIAL FIBRILLATION (4) CAD (coronary artery disease) Code(s): I25.10 - ATHSCL HEART DISEASE OF [place] CORONARY ARTERY W/O ANG PCTRS Qualifiers: Coronary Disease-Associated Artery/Lesion type: [place] artery [place] vs. transplanted heart: [place] heart Associated angina: without angina Qualified Code(s): I25.10 - Atherosclerotic heart disease of [place] coronary artery without angina pectoris (5) GERD (gastroesophageal reflux disease) Code(s): K21.9 - GASTRO-ESOPHAGEAL REFLUX DISEASE WITHOUT ESOPHAGITIS (6) HLD (hyperlipidemia) Code(s): E78.5 - HYPERLIPIDEMIA, UNSPECIFIED (7) HTN (hypertension) Code(s): I10 - ESSENTIAL (PRIMARY) HYPERTENSION Qualifiers: Hypertension type: essential hypertension Qualified Code(s): I10 - Essential (primary) hypertension (8) Hx of heart artery stent Code(s): Z95.5 - PRESENCE OF CORONARY ANGIOPLASTY IMPLANT AND GRAFT (9) COPD (chronic obstructive pulmonary disease) Code(s): J44.9 - CHRONIC OBSTRUCTIVE PULMONARY DISEASE, UNSPECIFIED (10) Congestive heart failure Code(s): I50.9 - HEART FAILURE, UNSPECIFIED Qualifiers: Heart failure type: unspecified Heart failure chronicity: acute Qualified Code(s): I50.9 - Heart failure, unspecified
[2018-12-27] MEDS ORDERED: FUROSEMIDE 40 MG/4 ML INJECTABLE VIAL IVPUSH ONE (02:41)
[2018-12-27] MEDS ORDERED: fentaNYL CITRATE 250 MCG/5 ML VIAL ONE ×4 (02:42→22:57)
[2018-12-27] MEDS ORDERED: CEFEPIME HCL 1 GM VIAL (RESTRICTED TO ID) ONE ×2 (02:59→08:53)
[2018-12-27] MEDS ORDERED: DEXTROSE 5%-WATER 100 ML IVPB ONE ×3 (02:59→15:39)
[2018-12-27] MEDS: MORPHINE SULFATE 2 MG/ML VIAL IVPUSH PRN ×3 (03:00→22:29)
[2018-12-27] MEDS: MIDAZOLAM HCL 2 MG/2 ML SINGLE DOSE VIAL IVPUSH PRN ×6 (03:00→22:20)
[2018-12-27] MEDS: CEFEPIME 1 GM in DEXTROSE 5%-WATER 100 ML IVPB SCH ×2 (03:13→08:58)
[2018-12-27] MEDS ORDERED: ACETAMINOPHEN 1000 MG/100 ML VIAL (NON FORMULARY) IVPB ONE (03:14)
[2018-12-27] MEDS ORDERED: LORazepam 2 MG/ML SDV VIAL ONE ×2 (03:26→21:46)
[2018-12-27] MEDS ORDERED: LORazepam 2 MG/ML SDV VIAL IM ONE (04:26)
[2018-12-27 06:37] LABS: BASO % 0.2 % (0-2.0); EOS % 2.2 % (0-4.5); HEMOGLOBIN 8.5 GM/dL (11.7-16.9); LYMPH % 9.3 % (8-40); MCH 33.1 pg (25.7-33.7); MCHC 35.4 g/dl (32.0-35.9); MEAN CELL VOLUME 93.5 fl (80-96); MEAN PLT VOLUME 7.3 fl (7.5-11.1); MONO % 6.9 % (3.8-10.2); NEUT % 81.4 % (42.8-82.8); PLATELET COUNT 295 K/MM3 (134-434); RBC 2.57 M/mm3 (4.00-5.60); RDW 16.7 % (11.9-15.9); WHITE BLOOD COUNT 14.6 K/mm3 (4.0-10.0)
[2018-12-27 06:42] LABS: ANION GAP 7 MMOL/L (8-16); BLOOD UREA NITROGEN 22 mg/dL (7-18); CALCIUM 7.6 mg/dL (8.5-10.1); CHLORIDE 104 mmol/L (98-107); CO2 30 mmol/L (21-32); CREATININE 0.6 mg/dL (0.55-1.3); GLUCOSE,RANDOM 96 mg/dL (74-106); MAGNESIUM 1.8 mg/dL (1.8-2.4); PHOSPHOROUS 3.4 mg/dL (2.5-4.9); POTASSIUM 3.2 mmol/L (3.5-5.1); SODIUM 141 mmol/L (136-145)
[2018-12-27] MEDS: HEPARIN NA (PORCINE) 5,000 UNITS/ML 1ML VIAL SQ SCH ×2 (06:57→15:00)
--- NOTE | 2018-12-27 07:28 | PN ---
Physical Exam: SUBJECTIVE: Patient seen and examined this AM. Intubated and minimally sedated however able to respond to questioning occasionally. Able to convey that he is having a lot of pain in his back. OBJECTIVE: Vital Signs Period Temp Pulse Resp BP Sys/Dyson Pulse Ox Last 24 Hr 98.4 F-100.1 F 86-104 12-22 111-134/60-82 99-100 GEN: Intubated, minimally sedated, pt alternating appearing comfortable and agitated HEENT: PERRL, ET tube taped in place NECK: supple HEART: Tachycardic, regular rhythm, no murmurs noted LUNGS: CTA b/l, no rhonchi or wheezes noted, mechanical breath sounds ABDOMEN: Soft, nontender EXTREMITIES: Dependent edema noted. NEURO: minimally sedated however able to follow some commands and nod to questioning Laboratory Results - last 24 hr 12/26/18 12/26/18 12/26/18 05:20 05:20 13:45 WBC RBC Hgb Hct MCV MCH MCHC RDW Plt Count MPV Absolute Neuts (auto) Total Counted 100 Neutrophils % Neutrophils % (Manual) 83.0 H Lymphocytes % Lymphocytes % (Manual) 13.0 D Monocytes % Monocytes % (Manual) 4 Eosinophils % Basophils % Nucleated RBC % Platelet Estimate Adequate Polychromasia 1+ Ovalocytes 1+ Sodium 143 Potassium 3.9 Chloride 107 Carbon Dioxide 28 Anion Gap 8 BUN 23 H Creatinine 0.7 Creat Clearance w eGFR 110.55 Random Glucose 100 Calcium 7.4 L Phosphorus 3.8 Magnesium 1.7 L Total Bilirubin 0.8 AST 86 H ALT 38 Alkaline Phosphatase 65 Creatine Kinase 470 H Creatine Kinase Index 0.3 CK-MB (CK-2) 1.7 Troponin I 0.17 H Total Protein 4.4 L Albumin 2.0 L Blood Type O POSITIVE Antibody Screen Negative Crossmatch See Detail 12/26/18 12/26/18 12/27/18 13:45 22:30 05:25 WBC 14.6 H RBC 2.57 L Hgb 8.5 L Hct 24.0 L MCV 93.5 MCH 33.1 MCHC 35.4 RDW 16.7 H Plt Count 295 MPV 7.3 L Absolute Neuts (auto) 11.9 H Total Counted Neutrophils % 81.4 Neutrophils % (Manual) Lymphocytes % 9.3 D Lymphocytes % (Manual) Monocytes % 6.9 Monocytes % (Manual) Eosinophils % 2.2 D Basophils % 0.2 Nucleated RBC % 0 Platelet Estimate Polychromasia Ovalocytes Sodium Potassium Chloride Carbon Dioxide Anion Gap BUN Creatinine Creat Clearance w eGFR Random Glucose Calcium Phosphorus Magnesium Total Bilirubin AST ALT Alkaline Phosphatase Creatine Kinase 404 H 302 Creatine Kinase Index 0.4 0.4 CK-MB (CK-2) 1.9 1.4 Troponin I 0.16 H 0.15 H Total Protein Albumin Blood Type Antibody Screen Crossmatch 12/27/18 05:25 WBC RBC Hgb Hct MCV MCH MCHC RDW Plt Count MPV Absolute Neuts (auto) Total Counted Neutrophils % Neutrophils % (Manual) Lymphocytes % Lymphocytes % (Manual) Monocytes % Monocytes % (Manual) Eosinophils % Basophils % Nucleated RBC % Platelet Estimate Polychromasia Ovalocytes Sodium 141 Potassium 3.2 L Chloride 104 Carbon Dioxide 30 Anion Gap 7 L BUN 22 H Creatinine 0.6 Creat Clearance w eGFR 132.07 Random Glucose 96 Calcium 7.6 L Phosphorus 3.4 Magnesium 1.8 Total Bilirubin AST ALT Alkaline Phosphatase Creatine Kinase Creatine Kinase Index CK-MB (CK-2) Troponin I Total Protein Albumin Blood Type Antibody Screen Crossmatch Active Medications Generic Name Dose Route Start Last Admin Trade Name Freq PRN Reason Stop Dose Admin Aspirin 300 mg 12/24/18 14:30 12/26/18 10:20 Asa - [place] 300 mg DAILY CHEMO Administration Chlorhexidine Gluconate 1 applic 12/22/18 22:00 12/26/18 21:34 Hibiclens For Decolonization - TP 1 applic HS CHEMO Administration Heparin Sodium (Porcine) 5,000 unit 12/23/18 14:00 12/27/18 06:57 Heparin - SQ 5,000 unit TID CHEMO Administration Fentanyl 500 mcg/ Dextrose 100 mls @ 10 mls/hr 12/23/18 21:30 12/26/18 21:35 IVPB 100 mcg/hr TITR CHEMO 20 mls/hr Administration Protocol 50 MCG/HR Cefepime HCl 1 gm/ Dextrose 100 mls @ 200 mls/hr 12/24/18 18:00 12/27/18 03: 13 IVPB 200 mls/hr Q8H-IV CHEMO Administration Protocol Furosemide 100 mg/ Sodium 100 mls @ 10 mls/hr 12/26/18 08:30 12/26/18 10:12 Chloride IVPB 10 mg/h ASDIR CHEMO 10 mls/hr Administration Protocol Metoprolol Tartrate 5 mg 12/22/18 22:22 12/24/18 11:05 Lopressor Injection - IVPUSH 5 mg Q6H PRN Administration TACHYCARDIA (HR > 120) Midazolam HCl 2 mg 12/24/18 15:09 12/27/18 06:57 Versed - IVPUSH 2 mg Q2H PRN Administration AGITATION Morphine Sulfate 2 mg 12/26/18 17:48 12/27/18 03:00 Morphine Sulfate IVPUSH 2 mg Q6H PRN Administration PAIN LEVEL 7 - 10 Mupirocin 1 applic 12/22/18 22:00 12/26/18 21:36 Bactroban Ointment (For Decolonization) - NS 12/27/18 21:59 1 applic BID CHEMO Administration Ondansetron HCl 4 mg 12/22/18 19:07 Zofran Injection IVPUSH Q6H PRN NAUSEA Pantoprazole Sodium 40 mg 12/23/18 10:00 12/26/18 10:20 Protonix Iv IVPUSH 40 mg DAILY CHEMO Administration ASSESSMENT/PLAN: 73 yr old man with hx chronic back/neck pain s/p multiple spinal surgeries, HTN , HLD, atrial fibrillation on Eliquis, CHF, COPD, GERD, RA, peripheral neuropathy POD #5 from spinal surgery. NEURO - op: 12/22/18, POD#5 -Intubated and Sedated Versed drip discontinued 12/25, prn versed pushes for sedation Fentanyl 100 mcg and ofirmev for pain/fever, titrate down and manage pain with prn pushes in attempt to extubate in AM PULMONARY -Intubated - tolerating CPAP well, will leave on CPAP as long as tolerating and switch back to AC mode overnight or if needed -Lasix drip started yesterday, improved aeration of lungs on CXR, will continue to monitor CV - Afib/HTN/CHF/CAD s/p stent in 2018 -Acute Blood loss anemia- blood loss of 1800 cc in OR, was given 5 units of PRBC and 6.5L of IV fluid. h/h now trending down serial CBCs, defer AC(eliquis) for Afib and CAD due to the decrease in h/h, currently on ASA suppository only Metoprolol Tartrate 5 mg IVP Q6H chemo(changed from prn) for rate control Given 2 additional PRBCs with additional lasix. H/H stable though did not appropriately respond to 2 units Repeat CBC @ 12 today -ECHO ordered for tomorrow ID -WBC now trending down, afebrile Cefepime 1gm IV Q8 Day 3 UA noted, cultures negative PROPHYLAXIS -SCDs, heparin drip as per cardiology if CBC stable, Neurosurgery agrees -Protonix 40 QD IVP FEN -none -Replete K and Mag -NPO; to start NGT feeds with 2 sherman HN 10ml/hr x 24 hours and increase 10 ml every 6 hours to goal rate of 45 ml/hr x 24 hours to provide 2160kcal, 90gm pro , 756ml free water with additional 5 ml water flush to provide additional 125ml free water, with -Target volume =1080ml to decrease overall fluid intake LINES -L radial -RIJ central line and left A-line 12/22 -cintron changed 12/24/18 Dispo Continue to monitor in ICU Full cCode Visit type - Emergency Visit Emergency Visit: No - New Patient This patient is new to me today: Yes Date on this admission: 12/27/18 - Critical Care Critical Care patient: Yes Total Critical Care Time (in minutes): 45 Critical Care Statement: The care of this patient involved high complexity decision making to prevent further life threatening deterioration of the patient 's condition and/or to evaluate & treat vital organ system(s) failure or risk of failure.
[2018-12-27] MEDS ORDERED: POTASSIUM CHLORIDE 20 MEQ PREMIX IVPB 100 ML IVPB ONE ×3 (07:31→19:00)
[2018-12-27] MEDS ORDERED: MAGNESIUM 1GM/D5W 100ML - 100 ML IVPB IVPB ONE (08:00)
--- NOTE | 2018-12-27 08:21 | PN ---
Progress Note, Physician Chief Complaint: Seen and examined in ICU TELE: AF, controlled with rare PVCs. Remains intubated. D/W RN, sedated because he flails and moves around when sedation lightened. Dressings without significant oozing. Hb > 8 after transfusions. Urine output excellent. CXR does show improvement. History of Present Illness: net - 1240 ccs Cardiac enzymes flat and repeat ECG as noted yesterday, no sig changes - Current Medication List Current Medications: Active Medications Aspirin (Asa -) 300 mg [place] DAILY [facility] Last Admin: 12/26/18 10:20 Dose: 300 mg Chlorhexidine Gluconate (Hibiclens For Decolonization -) 1 applic TP HS [facility] Last Admin: 12/26/18 21:34 Dose: 1 applic Heparin Sodium (Porcine) (Heparin -) 5,000 unit SQ TID [facility] Last Admin: 12/27/18 06:57 Dose: 5,000 unit Fentanyl 500 mcg/ Dextrose 100 mls @ 10 mls/hr IVPB TITR [facility]; Protocol Last Admin: 12/26/18 21:35 Dose: 100 mcg/hr, 20 mls/hr Cefepime HCl 1 gm/ Dextrose 100 mls @ 200 mls/hr IVPB Q8H-IV [facility]; Protocol Last Admin: 12/27/18 03:13 Dose: 200 mls/hr Furosemide 100 mg/ Sodium (Chloride) 100 mls @ 10 mls/hr IVPB ASDIR [facility]; Protocol Last Admin: 12/26/18 10:12 Dose: 10 mg/h, 10 mls/hr Metoprolol Tartrate (Lopressor Injection -) 5 mg IVPUSH Q6H PRN PRN Reason: TACHYCARDIA (HR > 120) Last Admin: 12/24/18 11:05 Dose: 5 mg Midazolam HCl (Versed -) 2 mg IVPUSH Q2H PRN PRN Reason: AGITATION Last Admin: 12/27/18 06:57 Dose: 2 mg Morphine Sulfate (Morphine Sulfate) 2 mg IVPUSH Q6H PRN PRN Reason: PAIN LEVEL 7 - 10 Last Admin: 12/27/18 03:00 Dose: 2 mg Mupirocin (Bactroban Ointment (For Decolonization) -) 1 applic NS BID [facility] Stop: 12/27/18 21:59 Last Admin: 12/26/18 21:36 Dose: 1 applic Ondansetron HCl (Zofran Injection) 4 mg IVPUSH Q6H PRN PRN Reason: NAUSEA Pantoprazole Sodium (Protonix Iv) 40 mg IVPUSH DAILY [facility] Last Admin: 12/26/18 10:20 Dose: 40 mg Potassium Chloride (Potassium Chloride 20 Meq Premix Ivpb -) 20 meq IVPB ONCE ONE Stop: 12/27/18 09:01 - Objective Vital Signs: Vital Signs Temperature 98.8 F 12/27/18 06:00 Pulse Rate 90 12/27/18 07:30 Respiratory Rate 12 12/27/18 07:30 Blood Pressure 142/65 12/27/18 07:30 O2 Sat by Pulse Oximetry (%) 100 12/27/18 07:30 Constitutional: Yes: Other (+ ETT) Cardiovascular: Yes: Pulse Irregular Respiratory: Yes: Other (improved air movement b/l) Gastrointestinal: Yes: Soft Edema: No Peripheral Pulses WNL: Yes Neurological: Yes: Other (opens eyes to name. When sedation lightened, moves all 4 extremities) Labs: CBC, BMP 12/27/18 05:25 12/27/18 05:25 INR, PTT INR 1.27 (0.83-1.09) H 12/23/18 05:30 Microbiology 12/24/18 16:50 Sputum - Endotrachea Suction/Ventilator Gram Stain - Final 12/24/18 16:50 Sputum - Endotrachea Suction/Ventilator Sputum Culture - Preliminary NORMAL RESPIRATORY KASSIDY 12/24/18 05:30 Blood - Peripheral Venous Blood Culture - Preliminary NO GROWTH OBTAINED AFTER 72 HOURS, INCUBATION TO CONTINUE FOR 2 DAYS. 12/24/18 03:00 Blood - Peripheral Venous Blood Culture - Preliminary NO GROWTH OBTAINED AFTER 72 HOURS, INCUBATION TO CONTINUE FOR 2 DAYS. Laboratory Tests 12/24/18 12/26/18 12/26/18 06:10 05:20 13:45 WBC Hgb Hct Plt Count ABG pH 7.47 H ABG pCO2 at Pt Temp 30.9 L ABG pO2 at Pt Temp 127 H Oxygen Flow Rate 40% PEEP 5.0 Sodium Potassium BUN Creatinine Calcium Phosphorus Magnesium Creatine Kinase 470 H 404 H Troponin I 0.16 H 12/26/18 12/27/18 12/27/18 22:30 05:25 05:25 WBC 14.6 H Hgb 8.5 L Hct 24.0 L Plt Count 295 ABG pH ABG pCO2 at Pt Temp ABG pO2 at Pt Temp Oxygen Flow Rate PEEP Sodium 141 Potassium 3.2 L BUN 22 H Creatinine 0.6 Calcium 7.6 L Phosphorus 3.4 Magnesium 1.8 Creatine Kinase 302 Troponin I 0.15 H - ....Imaging Chest X-ray: Image Reviewed EKG: Image Reviewed Problem List - Problems (1) Back pain Code(s): M54.9 - DORSALGIA, UNSPECIFIED (2) Paroxysmal atrial fibrillation Code(s): I48.0 - PAROXYSMAL ATRIAL FIBRILLATION (3) CAD (coronary artery disease) Code(s): I25.10 - ATHSCL HEART DISEASE OF [place] CORONARY ARTERY W/O ANG PCTRS Qualifiers: Coronary Disease-Associated Artery/Lesion type: [place] artery [place] vs. transplanted heart: [place] heart Associated angina: without angina Qualified Code(s): I25.10 - Atherosclerotic heart disease of [place] coronary artery without angina pectoris (4) Hx of heart artery stent Code(s): Z95.5 - PRESENCE OF CORONARY ANGIOPLASTY IMPLANT AND GRAFT (5) HTN (hypertension) Code(s): I10 - ESSENTIAL (PRIMARY) HYPERTENSION Qualifiers: Hypertension type: essential hypertension Qualified Code(s): I10 - Essential (primary) hypertension (6) Pulmonary hypertension Code(s): I27.20 - PULMONARY HYPERTENSION, UNSPECIFIED (7) Anticoagulation management encounter Code(s): Z51.81 - ENCOUNTER FOR THERAPEUTIC DRUG LEVEL MONITORING; Z79.01 - RETIREMENT (CURRENT) USE OF ANTICOAGULANTS Assessment/Plan IMP: 1. Intractable neck pain, cervical and lumbar disc disease POD #5 Removal of hardware from C2-C7, laminectomy C2-T1 with posterior fusion of C2-T1. removal of hardware from L3-S1(retained screw at Right S1) lamienctomy of L1/L2 and L2/L3 posterior fusion of L1 thru S1, repair of durotomy and cage placment L2-L3 2. PHTN, chronic 3. CAD s/p PCI 4. Permanent AF 5. Acute on chronic diastolic CHF 6. Moderate MR 7. Post op fever: cultures negative. 8. Anemia REC: 1. Vent management as per ICU team. Net negative output on Lasix gtts with slight improvement in CXR. Would continue diuresis with Lasix gtts and keep net negative fluid balance. Replete K+ and Mg2+. Daily CXR/ electrolytes. 2. Blood cultures remain negative; ID following. WBC down. 3. H/H now improved after PRBCs. Hb > 8. Follow H/H. 4. F/u post op CT scan official read. Was reviewed by Neurosurgery, D/W Dr. Junior. 5. As d/w N-surgery yesterday, plan to resume AC for AF today if H/H remains stable. Would d/c the SQ prophylactic dose and begin UFH gtts without bolus dosing and aim for PTT 50-70. 6. Tele in ICU with IV Lopressor for rate control: thus far has remained adequately controlled. 8. ASA has been resumed (prior coronary PCI) Clinical improvement from yesterday. Continue above plans and ICU care. Will follow.
[2018-12-27] MEDS: FUROSEMIDE INJECTION 100 MG in SODIUM CHLORIDE 90 ML IVPB SCH ×2 (08:56→15:29)
[2018-12-27] MEDS: PANTOPRAZOLE SODIUM 40 MG VIAL IVPUSH SCH (08:59)
[2018-12-27] MEDS: ACETAMINOPHEN 1000 MG/100 ML VIAL (NON FORMULARY) IVPB PRN (09:05)
[2018-12-27] MEDS: ASPIRIN 300 MG SUPP.RECT PR SCH (09:12)
[2018-12-27] MEDS: MUPIROCIN 2% TOPICAL OINTMENT FOR DECOLONIZATION NS SCH (09:13)
--- NOTE | 2018-12-27 09:37 | PN ---
Teaching Attending Note Name of Resident: [place] [employer] ATTENDING PHYSICIAN STATEMENT I saw and evaluated the patient. I reviewed the resident's note and discussed the case with the resident. I agree with the resident's findings and plan as documented. SUBJECTIVE: Pt seen and examined in the ICU. Remains intubated, more arousable on lower sedation. Diuresing well on lasix gtt. OBJECTIVE: Vital Signs Period Temp Pulse Resp BP Sys/Dyson Pulse Ox Last 24 Hr 98.4 F-100.1 F 86-104 12-22 111-142/60-82 99-100 Intake & Output 12/24/18 12/25/18 12/26/18 12/27/18 23:59 23:59 23:59 23:59 Intake Total 4256 1614 1243 1060 Output Total 1825 1760 3200 2300 Balance 7762 -146 -9803 -1240 Weight 107.558 kg 106.186 kg 102.194 kg Gen: intubated, sedated Heart: RRR Lung: scattered rhonchi Abd: soft, nontender Ext: + edema CBC, BMP 12/27/18 05:25 12/27/18 05:25 Active Medications Acetaminophen (Ofirmev Injection -) 1,000 mg IVPB Q6H PRN PRN Reason: PAIN OR FEVER Last Admin: 12/27/18 09:05 Dose: 1,000 mg Aspirin (Asa -) 300 mg [place] DAILY [facility] Last Admin: 12/27/18 09:12 Dose: 300 mg Chlorhexidine Gluconate (Hibiclens For Decolonization -) 1 applic TP HS [facility] Last Admin: 12/26/18 21:34 Dose: 1 applic Heparin Sodium (Porcine) (Heparin -) 5,000 unit SQ TID [facility] Last Admin: 12/27/18 06:57 Dose: 5,000 unit Fentanyl 500 mcg/ Dextrose 100 mls @ 10 mls/hr IVPB TITR [facility]; Protocol Last Admin: 12/26/18 21:35 Dose: 100 mcg/hr, 20 mls/hr Cefepime HCl 1 gm/ Dextrose 100 mls @ 200 mls/hr IVPB Q8H-IV [facility]; Protocol Last Admin: 12/27/18 08:58 Dose: 200 mls/hr Furosemide 100 mg/ Sodium (Chloride) 100 mls @ 10 mls/hr IVPB ASDIR [facility]; Protocol Last Admin: 12/27/18 08:56 Dose: Not Given Metoprolol Tartrate (Lopressor Injection -) 5 mg IVPUSH Q6H PRN PRN Reason: TACHYCARDIA (HR > 120) Last Admin: 12/24/18 11:05 Dose: 5 mg Midazolam HCl (Versed -) 2 mg IVPUSH Q2H PRN PRN Reason: AGITATION Last Admin: 12/27/18 06:57 Dose: 2 mg Morphine Sulfate (Morphine Sulfate) 2 mg IVPUSH Q6H PRN PRN Reason: PAIN LEVEL 7 - 10 Last Admin: 12/27/18 03:00 Dose: 2 mg Mupirocin (Bactroban Ointment (For Decolonization) -) 1 applic NS BID [facility] Stop: 12/27/18 21:59 Last Admin: 12/27/18 09:13 Dose: 1 applic Ondansetron HCl (Zofran Injection) 4 mg IVPUSH Q6H PRN PRN Reason: NAUSEA Pantoprazole Sodium (Protonix Iv) 40 mg IVPUSH DAILY [facility] Last Admin: 12/27/18 08:59 Dose: 40 mg ASSESSMENT AND PLAN: A/P s/p CHELE C2-T1/L3-S1/Laminectomy/L1-S1 Posterior Fusion/Cage Placement/Durotomy repair Acute Respiratory Failure Acute Blood Loss Anemia CAD Atrial Fibrillation Acute on Chronic Diastolic Heart Failure Volume Overload Pneumonia UTI COPD Rheumatoid Arthritis HTN Hyperlipidemia h/o Prostate Ca - monitor H/H - transfuse as needed - continue lasix - monitor urine output, creatinine - keep net negative - continue antibiotics - rate control - resume anticoagulation - lighten sedation in AM to assess mental status - spontaneous breathing trials as tolerated when mental status improved - DVT/GI prophylaxis critical care time spent in reviewing chart, evaluating patient and formulating plan 35 min
--- NOTE | 2018-12-27 14:45 | PN ---
Progress Note (short form) - Note Progress Note: sedated remains intubated drains removed Vital Signs Period Temp Pulse Resp BP Sys/Dyson Pulse Ox Last 24 Hr 98.4 F-100.1 F 86-117 12-22 111-146/60-76 99-100 cor-rrr lungs decreased bs at bases abd soft,nt ext no edema CBC, BMP 12/27/18 05:25 12/27/18 05:25 Microbiology 12/24/18 16:50 Sputum - Endotrachea Suction/Ventilator Gram Stain - Final 12/24/18 16:50 Sputum - Endotrachea Suction/Ventilator Sputum Culture - Final NORMAL RESPIRATORY KASSIDY 12/24/18 05:30 Blood - Peripheral Venous Blood Culture - Preliminary NO GROWTH OBTAINED AFTER 72 HOURS, INCUBATION TO CONTINUE FOR 2 DAYS. 12/24/18 03:00 Blood - Peripheral Venous Blood Culture - Preliminary NO GROWTH OBTAINED AFTER 72 HOURS, INCUBATION TO CONTINUE FOR 2 DAYS. 12/24/18 09:05 Urine - Urine [place] Urine Culture - Final Yeast Like Organism cxray improved Current Medications Acetaminophen (Ofirmev Injection -) 1,000 mg IVPB Q6H PRN PRN Reason: PAIN OR FEVER Last Admin: 12/27/18 09:05 Dose: 1,000 mg Aspirin (Asa -) 300 mg [place] DAILY [facility] Last Admin: 12/27/18 09:12 Dose: 300 mg Chlorhexidine Gluconate (Hibiclens For Decolonization -) 1 applic TP HS [facility] Last Admin: 12/26/18 21:34 Dose: 1 applic Heparin Sodium (Porcine) (Heparin -) 5,000 unit SQ TID [facility] Last Admin: 12/27/18 06:57 Dose: 5,000 unit Fentanyl 500 mcg/ Dextrose 100 mls @ 10 mls/hr IVPB TITR [facility]; Protocol Last Admin: 12/26/18 21:35 Dose: 100 mcg/hr, 20 mls/hr Cefepime HCl 1 gm/ Dextrose 100 mls @ 200 mls/hr IVPB Q8H-IV [facility]; Protocol Last Admin: 12/27/18 08:58 Dose: 200 mls/hr Furosemide 100 mg/ Sodium (Chloride) 100 mls @ 10 mls/hr IVPB ASDIR [facility]; Protocol Last Admin: 12/27/18 08:56 Dose: Not Given Metoprolol Tartrate (Lopressor Injection -) 5 mg IVPUSH Q6H PRN PRN Reason: TACHYCARDIA (HR > 120) Last Admin: 12/24/18 11:05 Dose: 5 mg Midazolam HCl (Versed -) 2 mg IVPUSH Q2H PRN PRN Reason: AGITATION Last Admin: 12/27/18 12:20 Dose: 2 mg Morphine Sulfate (Morphine Sulfate) 2 mg IVPUSH Q6H PRN PRN Reason: PAIN LEVEL 7 - 10 Last Admin: 12/27/18 11:27 Dose: 2 mg Mupirocin (Bactroban Ointment (For Decolonization) -) 1 applic NS BID [facility] Stop: 12/27/18 21:59 Last Admin: 12/27/18 09:13 Dose: 1 applic Ondansetron HCl (Zofran Injection) 4 mg IVPUSH Q6H PRN PRN Reason: NAUSEA Pantoprazole Sodium (Protonix Iv) 40 mg IVPUSH DAILY [facility] Last Admin: 12/27/18 08:59 Dose: 40 mg a/p postop fever resolved pod #5 s/p surgery 3/12 with C2-T1 laminectomy and L3-S1 laminectomy leukocytosis improved drains removed by surgery awaiting neurosurgery f/u to examine the back day #3 cefepilme cultures noted, will deescalate to ceftriaxone anemia- ?transfusion
[2018-12-27 15:16] LABS: BASO % 0.4 % (0-2.0); EOS % 3.1 % (0-4.5); HEMATOCRIT 26.3 % (35.4-49); HEMOGLOBIN 9.3 GM/dL (11.7-16.9); LYMPH % 9.9 % (8-40); MCH 33.5 pg (25.7-33.7); MCHC 35.3 g/dl (32.0-35.9); MEAN CELL VOLUME 94.8 fl (80-96); MEAN PLT VOLUME 7.3 fl (7.5-11.1); MONO % 8.2 % (3.8-10.2); NEUT % 78.4 % (42.8-82.8); PLATELET COUNT 331 K/MM3 (134-434); RBC 2.77 M/mm3 (4.00-5.60); RDW 16.3 % (11.9-15.9); WHITE BLOOD COUNT 13.4 K/mm3 (4.0-10.0)
[2018-12-27 15:30] LABS: INR 2.01 (0.83-1.09); PROTHROMBIN TIME (PATIENT) 23.9 SEC (9.7-13.0)
[2018-12-27 15:33] LABS: ACTIVATED PTT 32.5 SECONDS (25.2-36.5)
[2018-12-27] MEDS: CEFTRIAXONE 2 GM in DEXTROSE 5%-WATER 100 ML IVPB SCH (15:40)
[2018-12-27] MEDS ORDERED: HEPARIN NA (PORCINE) 5,000 UNITS/ML 1ML VIAL IVPUSH PRN ×2 (16:16)
[2018-12-27] MEDS: HEPARIN INFUSION - 25,000 UNITS/500 ML INFUS.BAG IVPB SCH (17:31)
[2018-12-27] MEDS: FENTANYL INJECTION 500 MCG in DEXTROSE 5%-WATER - 90 ML IVPB SCH ×2 (17:34→23:45)
[2018-12-27 18:21] LABS: ANION GAP 6 MMOL/L (8-16); BLOOD UREA NITROGEN 19 mg/dL (7-18); CALCIUM 8.1 mg/dL (8.5-10.1); CHLORIDE 102 mmol/L (98-107); CO2 32 mmol/L (21-32); CREATININE 0.7 mg/dL (0.55-1.3); GLUCOSE,RANDOM 102 mg/dL (74-106); POTASSIUM 3.4 mmol/L (3.5-5.1); SODIUM 141 mmol/L (136-145)
[2018-12-27] MEDS ORDERED: POTASSIUM CHLORIDE ORAL LIQUID 20 MEQ/15 ML PO ONE (19:00)
--- NOTE | 2018-12-27 20:22 | PN ---
Progress Note, Physician History of Present Illness: Pt remains intubated - Current Medication List Current Medications: Active Medications Acetaminophen (Ofirmev Injection -) 1,000 mg IVPB Q6H PRN PRN Reason: PAIN OR FEVER Last Admin: 12/27/18 09:05 Dose: 1,000 mg Aspirin (Asa -) 300 mg [place] DAILY [facility] Last Admin: 12/27/18 09:12 Dose: 300 mg Chlorhexidine Gluconate (Hibiclens For Decolonization -) 1 applic TP HS [facility] Last Admin: 12/26/18 21:34 Dose: 1 applic Heparin Sodium (Porcine) (Heparin -) 1,000 unit IVPUSH PRN PRN PRN Reason: Heparin Heparin Sodium (Porcine) (Heparin -) 5,000 unit IVPUSH PRN PRN PRN Reason: Heparin Fentanyl 500 mcg/ Dextrose 100 mls @ 10 mls/hr IVPB TITR [facility]; Protocol Last Admin: 12/27/18 17:34 Dose: 100 mcg/hr, 20 mls/hr Furosemide 100 mg/ Sodium (Chloride) 100 mls @ 10 mls/hr IVPB ASDIR [facility]; Protocol Last Admin: 12/27/18 15:29 Dose: 10 mg/h, 10 mls/hr Ceftriaxone Sodium 2 gm/ (Dextrose) 100 mls @ 200 mls/hr IVPB DAILY [facility]; Protocol Last Admin: 12/27/18 15:40 Dose: 200 mls/hr Heparin Sodium/Dextrose (Heparin Infusion -) 25,000 units in 500 mls @ 18 mls/ hr IVPB TITR [facility]; Protocol Last Admin: 12/27/18 17:31 Dose: 900 units/hr, 18 mls/hr Metoprolol Tartrate (Lopressor Injection -) 5 mg IVPUSH Q6H PRN PRN Reason: TACHYCARDIA (HR > 120) Last Admin: 12/24/18 11:05 Dose: 5 mg Midazolam HCl (Versed -) 2 mg IVPUSH Q2H PRN PRN Reason: AGITATION Last Admin: 12/27/18 19:56 Dose: 2 mg Morphine Sulfate (Morphine Sulfate) 2 mg IVPUSH Q6H PRN PRN Reason: PAIN LEVEL 7 - 10 Last Admin: 12/27/18 11:27 Dose: 2 mg Mupirocin (Bactroban Ointment (For Decolonization) -) 1 applic NS BID [facility] Stop: 12/27/18 21:59 Last Admin: 12/27/18 09:13 Dose: 1 applic Ondansetron HCl (Zofran Injection) 4 mg IVPUSH Q6H PRN PRN Reason: NAUSEA Pantoprazole Sodium (Protonix Iv) 40 mg IVPUSH DAILY [facility] Last Admin: 12/27/18 08:59 Dose: 40 mg - Objective Vital Signs: Vital Signs Temperature 99.2 F 12/27/18 17:00 Pulse Rate 117 H 12/27/18 19:45 Respiratory Rate 18 12/27/18 19:58 Blood Pressure 139/79 12/27/18 19:45 O2 Sat by Pulse Oximetry (%) 100 12/27/18 19:45 Constitutional: Yes: Well Nourished Cardiovascular: Yes: Pulse Irregular Respiratory: Yes: Diminished Gastrointestinal: Yes: WNL, Normal Bowel Sounds, Soft Edema: LLE: Trace, RLE: Trace Labs: CBC, BMP 12/27/18 14:57 12/27/18 17:25 INR, PTT INR 2.01 (0.83-1.09) H 12/27/18 14:57 Problem List - Problems (1) Back pain Assessment/Plan: 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, laminectomy C2-T1 with posterior fusion of C-T1, removal of hardware from L3-S1 (retained screw at right S1) laminectomy of L1/L2 and L2/L3 posterior fusion of L1 through S1, repair of durotomy and cage placement L2-L3 Pt remains intubated post-op Cont IV fluids/cintron Cont IV ceftriaxone Urine culture (+) for yeast Code(s): M54.9 - DORSALGIA, UNSPECIFIED (2) Acute on chronic diastolic (congestive) heart failure Assessment/Plan: Cont IV lasix K+ replaced Code(s): I50.33 - ACUTE ON CHRONIC DIASTOLIC (CONGESTIVE) HEART FAILURE (3) Afib Assessment/Plan: Pt rstarted on AC w/ IV heparin drip and monitor for bleeding closely Monitor H/H Heart rate controlled Code(s): I48.91 - UNSPECIFIED ATRIAL FIBRILLATION (4) Anemia Assessment/Plan: Acute blood loss anemia S/P blood transfusions Monitor H/H Code(s): D64.9 - ANEMIA, UNSPECIFIED (5) CAD (coronary artery disease) Code(s): I25.10 - ATHSCL HEART DISEASE OF [place] CORONARY ARTERY W/O ANG PCTRS Qualifiers: Coronary Disease-Associated Artery/Lesion type: [place] artery [place] vs. transplanted heart: [place] heart Associated angina: without angina Qualified Code(s): I25.10 - Atherosclerotic heart disease of [place] coronary artery without angina pectoris (6) GERD (gastroesophageal reflux disease) Code(s): K21.9 - GASTRO-ESOPHAGEAL REFLUX DISEASE WITHOUT ESOPHAGITIS (7) HLD (hyperlipidemia) Code(s): E78.5 - HYPERLIPIDEMIA, UNSPECIFIED (8) HTN (hypertension) Code(s): I10 - ESSENTIAL (PRIMARY) HYPERTENSION Qualifiers: Hypertension type: essential hypertension Qualified Code(s): I10 - Essential (primary) hypertension (9) Hx of heart artery stent Code(s): Z95.5 - PRESENCE OF CORONARY ANGIOPLASTY IMPLANT AND GRAFT (10) COPD (chronic obstructive pulmonary disease) Code(s): J44.9 - CHRONIC OBSTRUCTIVE PULMONARY DISEASE, UNSPECIFIED
[2018-12-27] MEDS: CHLORHEXIDINE GLUCONATE 4% CLEANSER FOR DECOLONIZATION TP SCH (21:04)
[2018-12-27] MEDS ORDERED: LORazepam 2 MG/ML SDV VIAL IVPUSH ONE (21:45)
[2018-12-27] MEDS ORDERED: LORazepam 2 MG/ML SDV VIAL IVPUSH PRN (22:59)
[2018-12-27] MEDS ORDERED: PT OWN MED DRAWER 7, Y5N ONE (23:20)
[2018-12-28] MEDS ORDERED: fentaNYL CITRATE 250 MCG/5 ML VIAL ONE ×2 (03:51→09:24)
[2018-12-28] MEDS: MIDAZOLAM HCL 2 MG/2 ML SINGLE DOSE VIAL IVPUSH PRN ×6 (03:59→22:47)
[2018-12-28] MEDS: MORPHINE SULFATE 2 MG/ML VIAL IVPUSH PRN ×2 (04:56→09:19)
[2018-12-28 06:44] LABS: INR 2.1 (0.83-1.09)
[2018-12-28 06:47] LABS: ACTIVATED PTT 44.5 SECONDS (25.2-36.5)
[2018-12-28] MEDS: FUROSEMIDE INJECTION 100 MG in SODIUM CHLORIDE 90 ML IVPB SCH ×2 (07:00→21:22)
--- NOTE | 2018-12-28 07:20 | PN ---
Physical Exam: SUBJECTIVE: 73 year old male with PMH chronic back/neck pain, multiple spinal surgeries, HTN , HLD, atrial fibrillation on Eliquis, CHF, COPD, GERD, RA, peripheral neuropathy was sent to ED for spinal surgery 12/18/18. Pt had removal of hardware from C2-C7, laminectomy C2-T1 with posterior fusion of C2-T1. removal of hardware from L3-S1(retained screw at Right S1) lamienctomy of L1/L2 and L2/ L3 posterior fusion of L1 thru S1, repair of durotomy and cage placment L2-L3 . Pt lost 1800 cc of blood in OR, was given 5 units of PRBC and 6.5L of IV fluid. Pt was sent to ICU intubated and sedated. I saw and examined the patient today. Pt was intubated and sedated. OBJECTIVE: Vital Signs Period Temp Pulse Resp BP Sys/Dyson Pulse Ox Last 24 Hr 98.6 F-99.2 F 86-126 12-24 107-153/65-80 99-100 GENERAL: The patient is alert, tracking with eyes, following commands, appears in no acute distress. HEAD: Normal with no signs of trauma. EYES: PERRL, extraocular movements intact, sclera anicteric, conjunctiva clear. No ptosis. ENT: Ears normal, nares patent, oropharynx clear without exudates, moist mucous membranes. NECK: Trachea midline, in c-collar. LUNGS: intubated. Breath sounds equal, bilateral rhonchi, no wheezes, no crackles, no accessory muscle use. HEART: Regular rate and rhythm, S1, S2 without murmur, rub or gallop. ABDOMEN: Soft, nontender, nondistended, normoactive bowel sounds, no guarding, no rebound, no hepatosplenomegaly, no masses. EXTREMITIES: 2+ pulses, warm, well-perfused, no edema. NEUROLOGICAL: CN 2-13 grossly intact, moves all fours. PSYCH: awake, following commands. SKIN: Warm, dry, normal turgor, no rashes or lesions noted Laboratory Results - last 24 hr 12/27/18 12/27/18 12/27/18 14:57 14:57 17:25 WBC 13.4 H RBC 2.77 L Hgb 9.3 L Hct 26.3 L MCV 94.8 MCH 33.5 MCHC 35.3 RDW 16.3 H Plt Count 331 MPV 7.3 L Absolute Neuts (auto) 10.5 H Neutrophils % 78.4 Lymphocytes % 9.9 Monocytes % 8.2 Eosinophils % 3.1 Basophils % 0.4 Nucleated RBC % 0 PT with INR 23.90 H INR 2.01 H PTT (Actin FS) 32.5 Sodium 141 Potassium 3.4 L Chloride 102 Carbon Dioxide 32 Anion Gap 6 L BUN 19 H Creatinine 0.7 Creat Clearance w eGFR 110.55 Random Glucose 102 Calcium 8.1 L 12/27/18 12/28/18 21:10 05:30 WBC RBC Hgb Hct MCV MCH MCHC RDW Plt Count MPV Absolute Neuts (auto) Neutrophils % Lymphocytes % Monocytes % Eosinophils % Basophils % Nucleated RBC % PT with INR 25.00 H INR 2.10 H PTT (Actin FS) 41.5 H 44.5 H Sodium Potassium Chloride Carbon Dioxide Anion Gap BUN Creatinine Creat Clearance w eGFR Random Glucose Calcium Active Medications Generic Name Dose Route Start Last Admin Trade Name Freq PRN Reason Stop Dose Admin Acetaminophen 1,000 mg 12/27/18 08:52 12/27/18 09:05 Ofirmev Injection - IVPB 1,000 mg Q6H PRN Administration PAIN OR FEVER Aspirin 300 mg 12/24/18 14:30 12/27/18 09:12 Asa - MI 300 mg DAILY [facility] Administration Chlorhexidine Gluconate 1 applic 12/22/18 22:00 12/27/18 21:04 Hibiclens For Decolonization - TP 1 applic HS [facility] Administration Heparin Sodium (Porcine) 1,000 unit 12/27/18 16:16 12/27/18 22:45 Heparin - IVPUSH 1,000 unit PRN PRN Administration Heparin Heparin Sodium (Porcine) 5,000 unit 12/27/18 16:16 Heparin - IVPUSH PRN PRN Heparin Fentanyl 500 mcg/ Dextrose 100 mls @ 10 mls/hr 12/23/18 21:30 12/27/18 23:45 IVPB 100 mcg/hr TITR [facility] 20 mls/hr Administration Protocol 50 MCG/HR Furosemide 100 mg/ Sodium 100 mls @ 10 mls/hr 12/26/18 08:30 12/27/18 15:29 Chloride IVPB 10 mg/h ASDIR [facility] 10 mls/hr Administration Protocol Ceftriaxone Sodium 2 gm/ 100 mls @ 200 mls/hr 12/27/18 15:30 12/27/18 15:40 Dextrose IVPB 200 mls/hr DAILY [facility] Administration Protocol Heparin Sodium/Dextrose 25,000 units in 500 mls @ 18 mls/hr 12/27/18 16:30 22:45 Heparin Infusion - IVPB 1,000 units/hr TITR [facility] 20 mls/hr Titration Protocol 900 UNITS/HR Metoprolol Tartrate 5 mg 12/22/18 22:22 12/24/18 11:05 Lopressor Injection - IVPUSH 5 mg Q6H PRN Administration TACHYCARDIA (HR > 120) Midazolam HCl 2 mg 12/24/18 15:09 12/28/18 03:59 Versed - IVPUSH 2 mg Q2H PRN Administration AGITATION Morphine Sulfate 2 mg 12/26/18 17:48 12/28/18 04:56 Morphine Sulfate IVPUSH 2 mg Q6H PRN Administration PAIN LEVEL 7 - 10 Ondansetron HCl 4 mg 12/22/18 19:07 Zofran Injection IVPUSH Q6H PRN NAUSEA Pantoprazole Sodium 40 mg 12/23/18 10:00 12/27/18 08:59 Protonix Iv IVPUSH 40 mg DAILY [facility] Administration ASSESSMENT/PLAN: NEURO - op: 12/22/18, POD#6 -Versed drip discontinued 12/25, prn versed pushes for sedation -DC Fentanyl drip -DC Versed drip -Start Fentanyl 50 mcg Q6H PRN pain 6-10 -Ofirmev for pain/fever -Morphine 4 mg IV Q6H PRN pain -Zofran 4 mg Q6H IVP for nausea -Drains removed 12/25 -Speech and swallow ordered -Physical therapy ordered PULMONARY -Extubated 12/28/18 -CXR shows improved pulmonary congestion, left base density. CV - Afib/HTN/CHF/CAD s/p stent in 2018 #Acute Blood loss - blood loss of 1800 cc in OR, was given 5 units of PRBC and 6.5L of IV fluid. h/h now trending down -serial CBCs, currently on ASA suppository only - Heparin 1000U/Hour - Lasix drip 20 mg/hour - DC Metoprolol Tartrate 5 mg IV - Start Metoprolol Tartrate 25 mg PO BID through NG - 2U PRCB given 12/26/18 - serial troponin negative x3 on 12/26/18 - repeat echo today ID -WBC now trending down, afebrile, possible lung or urine source, txment emperic: -Downgrade from Cefepime to Ceftriaxone per ID -UA positive for UTI, but urine cx negative and bld cx negative, sputum cx negative PROPHYLAXIS -SCDs, defer medical ac due to drop in h/h -Protonix 40 QD IVP FEN -No IVF, repleted mag/potassium -NPO; to start NGT feeds with 2 sherman HN 10ml/hr x 24 hours and increase 10 ml every 6 hours to goal rate of 45 ml/hr x 24 hours to provide 2160kcal, 90gm pro , 756ml free water with additional 5 ml water flush to provide additional 125ml free water, with -Target volume =1080ml to decr overall fluid intake LINES -L radial -RIJ central line -Left A-line removed 12/27/18 -cintron changed 12/24/18 Dispo -cont to monitor in ICU -full code Visit type - Emergency Visit Emergency Visit: Yes ED Registration Date: 12/18/18 Care time: The patient presented to the Emergency Department on the above date and was hospitalized for further evaluation of their emergent condition. - New Patient This patient is new to me today: No - Critical Care Critical Care patient: Yes Total Critical Care Time (in minutes): 35 Critical Care Statement: The care of this patient involved high complexity decision making to prevent further life threatening deterioration of the patient 's condition and/or to evaluate & treat vital organ system(s) failure or risk of failure. - Discharge Referral Referred to [facility] Med P.C.: No
[2018-12-28 07:39] LABS: ANION GAP 6 MMOL/L (8-16); BLOOD UREA NITROGEN 19 mg/dL (7-18); CHLORIDE 101 mmol/L (98-107); CO2 33 mmol/L (21-32); CREATININE 0.6 mg/dL (0.55-1.3); GLUCOSE,RANDOM 109 mg/dL (74-106); MAGNESIUM 1.8 mg/dL (1.8-2.4); PHOSPHOROUS 2.8 mg/dL (2.5-4.9); POTASSIUM 3.2 mmol/L (3.5-5.1); SODIUM 140 mmol/L (136-145)
[2018-12-28 07:41] LABS: HEMATOCRIT 25.2 % (35.4-49); HEMOGLOBIN 8.7 GM/dL (11.7-16.9); MCH 32.4 pg (25.7-33.7); MCHC 34.6 g/dl (32.0-35.9); MEAN CELL VOLUME 93.6 fl (80-96); MEAN PLT VOLUME 7.7 fl (7.5-11.1); PLATELET COUNT 361 K/MM3 (134-434); RBC 2.69 M/mm3 (4.00-5.60); RDW 15.7 % (11.9-15.9); WHITE BLOOD COUNT 12.1 K/mm3 (4.0-10.0)
[2018-12-28] MEDS ORDERED: POTASSIUM CHLORIDE ORAL LIQUID 20 MEQ/15 ML NGT ONE (08:18)
--- NOTE | 2018-12-28 08:24 | PN ---
Progress Note, Physician Chief Complaint: seen and examined in ICU Intubated but alert. Opens eyes Moves all 4 extremities Net negative 5 L History of Present Illness: TELE: Controlled AF, rare PVCs. Low K+, being repleted. - Current Medication List Current Medications: Active Medications Acetaminophen (Ofirmev Injection -) 1,000 mg IVPB Q6H PRN PRN Reason: PAIN OR FEVER Last Admin: 12/27/18 09:05 Dose: 1,000 mg Aspirin (Asa -) 300 mg MT DAILY [facility] Last Admin: 12/27/18 09:12 Dose: 300 mg Chlorhexidine Gluconate (Hibiclens For Decolonization -) 1 applic TP HS [facility] Last Admin: 12/27/18 21:04 Dose: 1 applic Heparin Sodium (Porcine) (Heparin -) 1,000 unit IVPUSH PRN PRN PRN Reason: Heparin Last Admin: 12/27/18 22:45 Dose: 1,000 unit Heparin Sodium (Porcine) (Heparin -) 5,000 unit IVPUSH PRN PRN PRN Reason: Heparin Fentanyl 500 mcg/ Dextrose 100 mls @ 10 mls/hr IVPB TITR [facility]; Protocol Last Admin: 12/27/18 23:45 Dose: 100 mcg/hr, 20 mls/hr Furosemide 100 mg/ Sodium (Chloride) 100 mls @ 10 mls/hr IVPB ASDIR [facility]; Protocol Last Admin: 12/27/18 15:29 Dose: 10 mg/h, 10 mls/hr Ceftriaxone Sodium 2 gm/ (Dextrose) 100 mls @ 200 mls/hr IVPB DAILY [facility]; Protocol Last Admin: 12/27/18 15:40 Dose: 200 mls/hr Heparin Sodium/Dextrose (Heparin Infusion -) 25,000 units in 500 mls @ 18 mls/ hr IVPB TITR [facility]; Protocol Last Titration: 12/28/18 07:50 Dose: 1,100 units/hr, 22 mls/hr Potassium Chloride (Potassium Chloride 10 Meq Premix Ivpb -) 10 meq in 100 mls @ 100 mls/hr IVPB Q60M [facility] Stop: 12/28/18 10:29 Metoprolol Tartrate (Lopressor Injection -) 5 mg IVPUSH Q6H PRN PRN Reason: TACHYCARDIA (HR > 120) Last Admin: 12/24/18 11:05 Dose: 5 mg Midazolam HCl (Versed -) 2 mg IVPUSH Q2H PRN PRN Reason: AGITATION Last Admin: 12/28/18 07:55 Dose: 2 mg Morphine Sulfate (Morphine Sulfate) 2 mg IVPUSH Q6H PRN PRN Reason: PAIN LEVEL 7 - 10 Last Admin: 12/28/18 04:56 Dose: 2 mg Ondansetron HCl (Zofran Injection) 4 mg IVPUSH Q6H PRN PRN Reason: NAUSEA Pantoprazole Sodium (Protonix Iv) 40 mg IVPUSH DAILY [facility] Last Admin: 12/27/18 08:59 Dose: 40 mg - Objective Vital Signs: Vital Signs Temperature 98.7 F 12/28/18 08:00 Pulse Rate 110 H 12/28/18 08:22 Respiratory Rate 17 12/28/18 08:22 Blood Pressure 112/70 12/28/18 08:00 O2 Sat by Pulse Oximetry (%) 99 12/28/18 08:22 Constitutional: Yes: Other (+ ETT) Cardiovascular: Yes: Pulse Irregular Respiratory: Yes: Other (improved air movement b/l, no wheezing.) Gastrointestinal: Yes: Soft (nontender) Edema: Yes Edema: LLE: 1+ (venodynes), RLE: 1+ (venodynes) Labs: CBC, BMP 12/28/18 05:30 12/28/18 05:30 INR, PTT INR 2.10 (0.83-1.09) H 12/28/18 05:30 Laboratory Tests 12/27/18 12/28/18 12/28/18 21:10 05:30 05:30 WBC 12.1 H Hgb 8.7 L Hct 25.2 L Plt Count 361 PTT (Actin FS) 41.5 H Sodium 140 Potassium 3.2 L Creatinine 0.6 Magnesium 1.8 - ....Imaging X-ray: Image Reviewed (improved congestion) EKG: Image Reviewed Problem List - Problems (1) Back pain Code(s): M54.9 - DORSALGIA, UNSPECIFIED (2) Paroxysmal atrial fibrillation Code(s): I48.0 - PAROXYSMAL ATRIAL FIBRILLATION (3) CAD (coronary artery disease) Code(s): I25.10 - ATHSCL HEART DISEASE OF [place] CORONARY ARTERY W/O ANG PCTRS Qualifiers: Coronary Disease-Associated Artery/Lesion type: ca[place] artery [place] vs. transplanted heart: cahto heart Associated angina: without angina Qualified Code(s): I25.10 - Atherosclerotic heart disease of [place] coronary artery without angina pectoris (4) Hx of heart artery stent Code(s): Z95.5 - PRESENCE OF CORONARY ANGIOPLASTY IMPLANT AND GRAFT (5) HTN (hypertension) Code(s): I10 - ESSENTIAL (PRIMARY) HYPERTENSION Qualifiers: Hypertension type: essential hypertension Qualified Code(s): I10 - Essential (primary) hypertension (6) Pulmonary hypertension Code(s): I27.20 - PULMONARY HYPERTENSION, UNSPECIFIED (7) Anticoagulation management encounter Code(s): Z51.81 - ENCOUNTER FOR THERAPEUTIC DRUG LEVEL MONITORING; Z79.01 - ADMISSIONS ASSISTANT (CURRENT) USE OF ANTICOAGULANTS Assessment/Plan IMP: 1. Intractable neck pain, cervical and lumbar disc disease POD #6 Removal of hardware from C2-C7, laminectomy C2-T1 with posterior fusion of C2-T1. removal of hardware from L3-S1(retained screw at Right S1) lamienctomy of L1/L2 and L2/L3 posterior fusion of L1 thru S1, repair of durotomy and cage placment L2-L3 2. PHTN, chronic 3. CAD s/p PCI 4. Permanent AF 5. Acute on chronic diastolic CHF 6. Moderate MR 7. Post op fever: cultures negative. 8. Anemia REC: 1. Vent management as per ICU team. Net negative output on Lasix gtts with continued improvement in CXR. Would continue diuresis with Lasix gtts and keep net negative fluid balance. Replete K+ and Mg2+. Daily CXR/ electrolytes. 2. Blood cultures remain negative; ID following. WBC down. 3. H/H now improved after PRBCs. Hb > 8. Follow H/H. Remains stable overall with no sig drop in last 24 hours. 4. F/u post op CT scan official read. Was reviewed by Neurosurgery, D/W Dr. Junior. 5. Resumed AC for AF yesterday with UFH gtts, goal PTT 50-70. 6. Tele in ICU with IV Lopressor for rate control: thus far has remained adequately controlled. 8. ASA has been resumed (prior coronary PCI)
[2018-12-28] MEDS ORDERED: MAGNESIUM SULF 50% (8.12 MEQ/2 ML-1 GM VIAL) IVPB ONE (08:33)
[2018-12-28] MEDS ORDERED: DEXTROSE 5%-WATER 100 ML IVPB ONE (08:34)
[2018-12-28] MEDS: KCL 10 MEQ IVPB 10 MEQ/100 ML INFUS.BAG IVPB SCH ×2 (08:38→10:22)
[2018-12-28] MEDS: ACETAMINOPHEN 1000 MG/100 ML VIAL (NON FORMULARY) IVPB PRN ×2 (08:38→21:20)
[2018-12-28 08:43] LABS: BASO % 0.3 % (0-2.0); EOS % 2.9 % (0-4.5); HEMATOCRIT 25.5 % (35.4-49); HEMOGLOBIN 9.1 GM/dL (11.7-16.9); LYMPH % 12.4 % (8-40); MCH 33.8 pg (25.7-33.7); MCHC 35.6 g/dl (32.0-35.9); MEAN CELL VOLUME 95.1 fl (80-96); MEAN PLT VOLUME 7.7 fl (7.5-11.1); MONO % 10.1 % (3.8-10.2); NEUT % 74.3 % (42.8-82.8); PLATELET COUNT 367 K/MM3 (134-434); RBC 2.68 M/mm3 (4.00-5.60); RDW 15.8 % (11.9-15.9); WHITE BLOOD COUNT 12.4 K/mm3 (4.0-10.0)
[2018-12-28] MEDS: CEFTRIAXONE 2 GM in DEXTROSE 5%-WATER 100 ML IVPB SCH (10:22)
[2018-12-28] MEDS: PANTOPRAZOLE SODIUM 40 MG VIAL IVPUSH SCH (10:22)
[2018-12-28] MEDS: ASPIRIN 300 MG SUPP.RECT PR SCH (10:22)
[2018-12-28] MEDS ORDERED: fentaNYL CITRATE/PF 1,000 MCG/20 ML AMPUL IVPUSH PRN ×2 (11:02→13:11)
[2018-12-28] MEDS ORDERED: BENZOCAINE/MENTH/CETYLPYRD CL 1 EACH LOZENGE MM PRN (11:06)
--- NOTE | 2018-12-28 11:21 | PN ---
Teaching Attending Note Name of Resident: Winnie Juan ATTENDING PHYSICIAN STATEMENT I saw and evaluated the patient. I reviewed the resident's note and discussed the case with the resident. I agree with the resident's findings and plan as documented. SUBJECTIVE: Pt seen and examined in the ICU. Intubated, arousable off sedation and following commands. Placed on CPAP/PS with good RSIB and subsequently extubated during rounds. Diuresed well with lasix gtt. OBJECTIVE: Vital Signs Period Temp Pulse Resp BP Sys/Dyson Pulse Ox Last 24 Hr 98.6 F-99.2 F 86-126 12-24 107-153/65-80 99-100 Intake & Output 12/25/18 12/26/18 12/27/18 12/28/18 23:59 23:59 23:59 23:59 Intake Total 1614 1243 1790 700 Output Total 1760 3200 6800 1500 Balance -146 -3137 -5010 -800 Weight 107.558 kg 106.186 kg 102.194 kg 100.017 kg Gen: extubated Heart: RRR Lung: scattered rhonchi Abd: soft, nontender Ext: less edema CBC, BMP 12/28/18 05:30 12/28/18 05:30 Active Medications Acetaminophen (Ofirmev Injection -) 1,000 mg IVPB Q6H PRN PRN Reason: PAIN OR FEVER Last Admin: 12/28/18 08:38 Dose: 1,000 mg Aspirin (Asa -) 300 mg MI DAILY [facility] Last Admin: 12/28/18 10:22 Dose: 300 mg Benzocaine/Menthol (Cepacol Lozenge -) 1 each MM PRN PRN PRN Reason: SORE THROAT Chlorhexidine Gluconate (Hibiclens For Decolonization -) 1 applic TP HS [facility] Last Admin: 12/27/18 21:04 Dose: 1 applic Fentanyl Citrate (Fentanyl 1,000 Mcg/20 Ml Ampul) 50 mcg IVPUSH Q6H PRN PRN Reason: PAIN LEVEL 6-10 Heparin Sodium (Porcine) (Heparin -) 1,000 unit IVPUSH PRN PRN PRN Reason: Heparin Last Admin: 12/27/18 22:45 Dose: 1,000 unit Heparin Sodium (Porcine) (Heparin -) 5,000 unit IVPUSH PRN PRN PRN Reason: Heparin Furosemide 100 mg/ Sodium (Chloride) 100 mls @ 10 mls/hr IVPB ASDIR [facility]; Protocol Last Admin: 12/28/18 07:00 Dose: 20 mg/h, 20 mls/hr Ceftriaxone Sodium 2 gm/ (Dextrose) 100 mls @ 200 mls/hr IVPB DAILY [facility]; Protocol Last Admin: 12/28/18 10:22 Dose: 200 mls/hr Heparin Sodium/Dextrose (Heparin Infusion -) 25,000 units in 500 mls @ 18 mls/ hr IVPB TITR [facility]; Protocol Last Titration: 12/28/18 07:50 Dose: 1,100 units/hr, 22 mls/hr Metoprolol Tartrate (Lopressor -) 25 mg NGT BID [facility] Midazolam HCl (Versed -) 2 mg IVPUSH Q2H PRN PRN Reason: AGITATION Last Admin: 12/28/18 07:55 Dose: 2 mg Morphine Sulfate (Morphine Sulfate) 4 mg IVPUSH Q6H PRN PRN Reason: PAIN LEVEL 7 - 10 Ondansetron HCl (Zofran Injection) 4 mg IVPUSH Q6H PRN PRN Reason: NAUSEA Pantoprazole Sodium (Protonix Iv) 40 mg IVPUSH DAILY [facility] Last Admin: 12/28/18 10:22 Dose: 40 mg ASSESSMENT AND PLAN: s/p CHELE C2-T1/L3-S1/Laminectomy/L1-S1 Posterior Fusion/Cage Placement/Durotomy repair Acute Respiratory Failure Acute Blood Loss Anemia CAD Atrial Fibrillation Acute on Chronic Diastolic Heart Failure Volume Overload Pneumonia UTI COPD Rheumatoid Arthritis HTN Hyperlipidemia h/o Prostate Ca - pt extubated - continue lasix - monitor urine output, creatinine - keep net negative - replete lytes - f/u repeat echocardiogram - continue antibiotics - rate control - continue anticoagulation - DVT/GI prophylaxis critical care time spent in reviewing chart, evaluating patient and formulating plan 35 min
[2018-12-28] MEDS: METOPROLOL TARTRATE 25 MG TABLET (FP) NGT SCH ×3 (11:31→21:31)
[2018-12-28] MEDS: morphine SULFATE 4 MG/ML VIAL IVPUSH PRN ×2 (12:52→18:30)
--- NOTE | 2018-12-28 14:06 | CONSULT ---
Admitting History and Physical - Primary Care Physician PCP: Hayley Kevin - Admission History of Present Illness: Per EMR- Patient is a 73 year old male with significant Past medical history of CAD s/p stents in LAD 11/30, HTN, Hyperlipidemia, Chronic diastolic heart failure, Pulmonary HTN, PSVT, COPD, Prostate cancer, Anemia, GERD, Gout, Rheumatoid arthritis, Peripheral neuropathy, Chronic neck and back pain 12/22/18-s/p CHELE C2-T1/L3-S1/Laminectomy/L1-S1 Posterior Fusion/Cage Placement/ Durotomy repair Acute Respiratory Failure Acute Blood Loss Anemia CAD Atrial Fibrillation Acute on Chronic Diastolic Heart Failure Volume Overload Pneumonia UTI COPD Rheumatoid Arthritis HTN Hyperlipidemia h/o Prostate Ca 12/22-Intubated and sedated post op. Extubated this am. History Source: Family Member, Medical Record Limitations to Obtaining History: Clinical Condition - Past Medical History [place]: Yes: Peripheral Neuropathy Cardiovascular: Yes: CAD, HTN, Hyperlipdemia Gastrointestinal: Yes: GERD Heme/Onc: Yes: Anemia, Other (Prostate cancer) Musculoskeletal: Yes: Other (Chronic rt ankle pain) Rheumatology: Yes: Gout - Smoking History Smoking history: Current every day smoker Have you smoked in the past 12 months: No - Alcohol/Substance Use Hx Alcohol Use: No History of Substance Use: reports: None - Social History ADL: Independent History of Recent Travel: No History - Admission Reason For Visit: BACK PAIN - Diagnostics X-ray: Report Reviewed - General Mental Status: Awake and Alert, Able to Follow Commands, Vague Attention: Distractible Ability to Follow Directions: Fair Head/Neck Control: Needs Assist - Hearing Hearing: Normal Speech Evaluation - Communication Primary Language: [id number] Communication: Yes: Simple Responses Oral Expression Ability: Yes: Moderate Impairment - Speech Production Able to Make Needs Known: Yes: Mildly Impaired, Moderately Impaired Intelligibility: Yes: Mildly Impaired, Moderately Impaired - Speech Characteristics Voice Loudness: Mildly Soft/Quiet, Moderately Soft/Quiet Voice Phonatory-based Quality: Yes: Dysphonia, Vocal Wetness (upper airway secretions. Wetness improved following cough/suction) Speech Pattern: Impaired Speech Clarity: < 75% Nasal Resonance: Normal Articulation: Yes: Precise - Language/Auditory Comprehension Observation: Able to respond to yes/no queries: Yes (slow to respond.) - Swallow Evaluation/Bedside Assessment Current Nutritional Intake: NPO Dentition: Yes: Edentulous Facial Symmetry at Rest: Symmetrical Lingual Movement: Symmetric Timing of Swallow: Delayed Coughing/Throat Clear: Yes Recommendations - Speech Evaluation, Impression/Plan Impression: Slow to respond. Prolonged intubation.Recent extubation/medicated. Upper airway secretions/vocal wetness/dysphonia - Dysphagia Impressions/Plan Swallowing Skills: Impaired Dysphagia Impressions: Refused PO Trials (needed much encouragement to accept 1/ 4 tsp of applesauce. reports Odynophagia (prolonged intubated/NGT in place)), Suspect Aspiration *Silent aspiration: cannot be R/O at bedside Dysphagia Treatment Plan: Other (Encourage pt to cough and clear secretions/ Suction PRN.) Recommendations: Modified Barium Swallow (indicated but unlikely to tolerate - multiple back surgery/pain), Other (Continue NGT feedings if not medically contraindicated,To reassess at bedside.) - Recommendations Diet Consistency: NPO, Other (NPO including meds) Liquids: NPO
--- NOTE | 2018-12-28 16:12 | PN ---
Progress Note (short form) - Note Progress Note: POD#5 Pt seen earlier this am while intubated. Later today while on rounds he was now extubated. Vital Signs Period Temp Pulse Resp BP Sys/Dyson Pulse Ox Last 24 Hr 98.6 F-99.2 F 86-126 12-24 105-153/65-80 99-100 GEN: Alert and oriented to place, follows commands Neck: Cervical collar in place. Posterior dressing intact with aquacel. Neuro: Moving all extremitites. Back: Dressing in place. reinforced the inferior aspect, pulling up a bit. CBC, BMP 12/28/18 05:30 12/28/18 05:30 INR, PTT INR 2.10 (0.83-1.09) H 12/28/18 05:30 A/p: 73 yo male s/p removal of hardware from C2-C7, laminectomy C2-T1 with posterior fusion of C2-T1. removal of hardware from L3-S1(retained screw at Right S1) lamienctomy of L1/L2 and L2/L3 posterior fusion of L1 thru S1, repair of durotomy and cage placment L2-L3 Continue supportive measures Aspirin rectal daily, IV heparin Continue IV abx, changed to rocephin Pain managment with IV pain meds Speech and swallow eval, recommend to continue tube feeds for now. Unable to cooperate for swallow eval at bedside. D/w. Dr. Taylor
--- NOTE | 2018-12-28 16:14 | PN ---
Progress Note, Physician History of Present Illness: AWAKE, ALERT NO C/O PAIN TEMPS REMAIN DOWN WBC SLIGHTLY ELEVATED C/S NOTED - Current Medication List Current Medications: Active Medications Acetaminophen (Ofirmev Injection -) 1,000 mg IVPB Q6H PRN PRN Reason: PAIN OR FEVER Last Admin: 12/28/18 08:38 Dose: 1,000 mg Aspirin (Asa -) 300 mg ID DAILY [facility] Last Admin: 12/28/18 10:22 Dose: 300 mg Benzocaine/Menthol (Cepacol Lozenge -) 1 each MM PRN PRN PRN Reason: SORE THROAT Chlorhexidine Gluconate (Hibiclens For Decolonization -) 1 applic TP HS [facility] Last Admin: 12/27/18 21:04 Dose: 1 applic Fentanyl Citrate (Fentanyl 1,000 Mcg/20 Ml Ampul) 50 mcg IVPUSH Q6H PRN PRN Reason: PAIN LEVEL 7 - 10 Heparin Sodium (Porcine) (Heparin -) 1,000 unit IVPUSH PRN PRN PRN Reason: Heparin Last Admin: 12/27/18 22:45 Dose: 1,000 unit Heparin Sodium (Porcine) (Heparin -) 5,000 unit IVPUSH PRN PRN PRN Reason: Heparin Furosemide 100 mg/ Sodium (Chloride) 100 mls @ 10 mls/hr IVPB ASDIR [facility]; Protocol Last Admin: 12/28/18 07:00 Dose: 20 mg/h, 20 mls/hr Ceftriaxone Sodium 2 gm/ (Dextrose) 100 mls @ 200 mls/hr IVPB DAILY [facility]; Protocol Last Admin: 12/28/18 10:22 Dose: 200 mls/hr Heparin Sodium/Dextrose (Heparin Infusion -) 25,000 units in 500 mls @ 18 mls/ hr IVPB TITR [facility]; Protocol Last Titration: 12/28/18 07:50 Dose: 1,100 units/hr, 22 mls/hr Metoprolol Tartrate (Lopressor -) 25 mg NGT BID [facility] Last Admin: 12/28/18 11:31 Dose: 25 mg Midazolam HCl (Versed -) 2 mg IVPUSH Q2H PRN PRN Reason: AGITATION Last Admin: 12/28/18 11:31 Dose: 2 mg Morphine Sulfate (Morphine Sulfate) 4 mg IVPUSH Q6H PRN PRN Reason: PAIN LEVEL 7 - 10 Last Admin: 12/28/18 12:52 Dose: 4 mg Ondansetron HCl (Zofran Injection) 4 mg IVPUSH Q6H PRN PRN Reason: NAUSEA Pantoprazole Sodium (Protonix Iv) 40 mg IVPUSH DAILY [facility] Last Admin: 12/28/18 10:22 Dose: 40 mg - Objective Vital Signs: Vital Signs Temperature 98.9 F 12/28/18 14:00 Pulse Rate 104 H 12/28/18 14:00 Respiratory Rate 20 12/28/18 14:00 Blood Pressure 105/68 12/28/18 14:00 O2 Sat by Pulse Oximetry (%) 100 12/28/18 11:33 Constitutional: Yes: No Distress Eyes: Yes: Conjunctiva Clear Cardiovascular: Yes: Regular Rate and Rhythm, S1, S2 Respiratory: Yes: Diminished Gastrointestinal: Yes: Normal Bowel Sounds, Soft. No: Tenderness Labs: CBC, BMP 12/28/18 05:30 12/28/18 05:30 INR, PTT INR 2.10 (0.83-1.09) H 12/28/18 05:30 Assessment/Plan POST OP FEVER RESOLVED LEUKOCYTOSIS IMPROVED CONTINUE CEFTRIAXONE
--- NOTE | 2018-12-28 16:19 | ECHO ---
Name: RODRIGO TERRAZAS Exam:Adult Echocardiogram Study Date: 12/28/2018 09:14 AM Age: 73 yrs Reason For Study: chf lvef Height: 73 in Weight: 234 lb BSA: 2.3 m2 MMode/2D Measurements & Calculations IVSd: 1.1 cm Ao root diam: 3.2 cm LVIDd: 4.1 cm LA dimension: 4.4 cm LVIDs: 2.9 cm LVPWd: 1.0 cm EDV(Teich): 73.2 ml LVOT diam: 2.5 cm ESV(Teich): 33.0 ml LAV (MOD-bp): 153.0 ml TAPSE: 2.3 cm Doppler Measurements & Calculations MV E max donny: 95.0 cm/sec Ao V2 max: 172.7 cm/sec MV A max donny: 27.8 cm/sec Ao max P.9 mmHg MV E/A: 3.4 Ao V2 mean: 109.8 cm/sec MV dec time: 0.21 sec Ao mean P.6 mmHg Ao V2 VTI: 29.0 cm JOSIE(I,D): 2.8 cm2 JOSIE(V,D): 2.9 cm2 LV V1 max P.0 mmHg MR max donny: 401.8 cm/sec LV V1 mean P.6 mmHg MR max P.7 mmHg LV V1 max: 100.4 cm/sec LV V1 mean: 57.7 cm/sec LV V1 VTI: 16.2 cm SV(LVOT): 82.0 ml TR max donny: 306.1 cm/sec TR max P.5 mmHg PI end-d donny: 143.7 cm/sec Med Peak E' Donny: 7.4 cm/sec Med E/e': 12.9 Lat Peak E' Donny: 15.2 cm/sec Lat E/e': 6.3 Procedure A complete two-dimensional transthoracic echocardiogram was performed (2D, M-mode, Doppler and color flow Doppler). Left Ventricle The left ventricle is normal in size. There is moderate asymmetric left ventricular hypertrophy. Left ventricular systolic function is normal. Ejection Fraction = 55-60%. No regional wall motion abnormal ities noted. Right Ventricle The right ventricle is normal size. The right ventricular systolic function is normal. RV systolic TD I is 18 cm/s. Atria The left atrium is moderately dilated. The right atrium is mildly dilated. Mitral Valve There is mild mitral annular calcification. There is mild mitral valve prolapse. Prolapse of the post erior mitral leaflet(s). There is mild to moderate mitral regurgitation. Tricuspid Valve The tricuspid valve is normal in structure and function. There is mild to moderate tricuspid regurgit ation. Pulmonary artery systolic pressure is at least 71 mmHg if RA pressure is assumed 15 mmHg (dilated IVC and <50% collapse) c/w severe pulmonary HTN. Aortic Valve The aortic valve is normal in structure and function. No aortic regurgitation is present. Pulmonic Valve The pulmonic valve is not well visualized. Mild to moderate pulmonic valvular regurgitation. Great Vessels The aortic root is normal size. Pericardium/Pleura Trivial pericardial effusion not hemodynamically significant. Interpretation Summary The left ventricle is normal in size. There is moderate asymmetric left ventricular hypertrophy. Left ventricular systolic function is normal. No regional wall motion abnormalities noted. Ejection Fraction = 55-60%. The right ventricular systolic function is normal. The left atrium is moderately dilated. The right atrium is mildly dilated. There is mild mitral annular calcification. There is mild mitral valve prolapse. Prolapse of the posterior mitral leaflet(s). There is mild to moderate mitral regurgitation. There is mild to moderate tricuspid regurgitation. Pulmonary artery systolic pressure is at least 71 mmHg if RA pressure is assumed 15 mmHg (dilated IVC and <50% collapse) c/w severe pulmonary HTN Mild to moderate pulmonic valvular regurgitation. Trivial pericardial effusion not hemodynamically significant When compared to study dated 11/24/09, likely no significant changes Sean Abbott MD 12/28/2018 04:19 PM
[2018-12-28] MEDS: HEPARIN INFUSION - 25,000 UNITS/500 ML INFUS.BAG IVPB SCH (17:12)
[2018-12-28] MEDS: CHLORHEXIDINE GLUCONATE 4% CLEANSER FOR DECOLONIZATION TP SCH ×2 (21:21→23:26)
[2018-12-28] MEDS ORDERED: LORazepam 2 MG/ML SDV VIAL IVPUSH PRN (22:33)
--- NOTE | 2018-12-28 23:49 | PN ---
Progress Note, Physician - Current Medication List Current Medications: Active Medications Acetaminophen (Ofirmev Injection -) 1,000 mg IVPB Q6H PRN PRN Reason: PAIN OR FEVER Last Admin: 12/28/18 21:20 Dose: 1,000 mg Aspirin (Asa -) 300 mg OK DAILY BR[facility]GET Last Admin: 12/28/18 10:22 Dose: 300 mg Benzocaine/Menthol (Cepacol Lozenge -) 1 each MM PRN PRN PRN Reason: SORE THROAT Chlorhexidine Gluconate (Hibiclens For Decolonization -) 1 applic TP HS BRIDGET Last Admin: 12/28/18 23:26 Dose: 1 applic Fentanyl Citrate (Fentanyl 1,000 Mcg/20 Ml Ampul) 50 mcg IVPUSH Q6H PRN PRN Reason: PAIN LEVEL 7 - 10 Heparin Sodium (Porcine) (Heparin -) 1,000 unit IVPUSH PRN PRN PRN Reason: Heparin Last Admin: 12/27/18 22:45 Dose: 1,000 unit Heparin Sodium (Porcine) (Heparin -) 5,000 unit IVPUSH PRN PRN PRN Reason: Heparin Furosemide 100 mg/ Sodium (Chloride) 100 mls @ 10 mls/hr IVPB ASDIR [facility]; Protocol Last Admin: 12/28/18 21:22 Dose: 10 mg/h, 10 mls/hr Ceftriaxone Sodium 2 gm/ (Dextrose) 100 mls @ 200 mls/hr IVPB DAILY [facility]; Protocol Last Admin: 12/28/18 10:22 Dose: 200 mls/hr Heparin Sodium/Dextrose (Heparin Infusion -) 25,000 units in 500 mls @ 18 mls/ hr IVPB TITR [facility]; Protocol Last Titration: 12/28/18 18:29 Dose: 950 units/hr, 19 mls/hr Lorazepam (Ativan Injection -) 2 mg IVPUSH ONCE PRN PRN Reason: ANXIETY Stop: 12/29/18 22:32 Last Admin: 12/28/18 22:47 Dose: 2 mg Metoprolol Tartrate (Lopressor -) 25 mg NGT BID [facility] Last Admin: 12/28/18 21:31 Dose: Not Given Midazolam HCl (Versed -) 2 mg IVPUSH Q2H PRN PRN Reason: AGITATION Last Admin: 12/28/18 22:47 Dose: 2 mg Morphine Sulfate (Morphine Sulfate) 4 mg IVPUSH Q6H PRN PRN Reason: PAIN LEVEL 7 - 10 Last Admin: 12/28/18 18:30 Dose: 4 mg Ondansetron HCl (Zofran Injection) 4 mg IVPUSH Q6H PRN PRN Reason: NAUSEA Pantoprazole Sodium (Protonix Iv) 40 mg IVPUSH DAILY [facility] Last Admin: 12/28/18 10:22 Dose: 40 mg - Objective Vital Signs: Vital Signs Temperature 98.4 F 12/28/18 16:00 Pulse Rate 110 H 12/28/18 20:00 Respiratory Rate 20 12/28/18 21:00 Blood Pressure 138/61 12/28/18 20:00 O2 Sat by Pulse Oximetry (%) 100 12/28/18 21:00 Labs: CBC, BMP 12/28/18 05:30 12/28/18 05:30 INR, PTT INR 2.10 (0.83-1.09) H 12/28/18 05:30 Problem List - Problems (1) Back pain Code(s): M54.9 - DORSALGIA, UNSPECIFIED (2) Acute on chronic diastolic (congestive) heart failure Code(s): I50.33 - ACUTE ON CHRONIC DIASTOLIC (CONGESTIVE) HEART FAILURE (3) Afib Code(s): I48.91 - UNSPECIFIED ATRIAL FIBRILLATION (4) Anemia Code(s): D64.9 - ANEMIA, UNSPECIFIED (5) CAD (coronary artery disease) Code(s): I25.10 - ATHSCL HEART DISEASE OF [place] CORONARY ARTERY W/O ANG PCTRS Qualifiers: Coronary Disease-Associated Artery/Lesion type: [place] artery [place] vs. transplanted heart: [place] heart Associated angina: without angina Qualified Code(s): I25.10 - Atherosclerotic heart disease of [place] coronary artery without angina pectoris (6) GERD (gastroesophageal reflux disease) Code(s): K21.9 - GASTRO-ESOPHAGEAL REFLUX DISEASE WITHOUT ESOPHAGITIS (7) HLD (hyperlipidemia) Code(s): E78.5 - HYPERLIPIDEMIA, UNSPECIFIED (8) HTN (hypertension) Code(s): I10 - ESSENTIAL (PRIMARY) HYPERTENSION Qualifiers: Hypertension type: essential hypertension Qualified Code(s): I10 - Essential (primary) hypertension (9) Hx of heart artery stent Code(s): Z95.5 - PRESENCE OF CORONARY ANGIOPLASTY IMPLANT AND GRAFT (10) COPD (chronic obstructive pulmonary disease) Code(s): J44.9 - CHRONIC OBSTRUCTIVE PULMONARY DISEASE, UNSPECIFIED
[2018-12-29] MEDS: morphine SULFATE 4 MG/ML VIAL IVPUSH PRN ×4 (04:49→20:18)
[2018-12-29 06:13] LABS: BASO % 0.4 % (0-2.0); EOS % 2.7 % (0-4.5); HEMATOCRIT 27.3 % (35.4-49); HEMOGLOBIN 9.5 GM/dL (11.7-16.9); LYMPH % 10.7 % (8-40); MCHC 34.7 g/dl (32.0-35.9); MEAN CELL VOLUME 95.1 fl (80-96); MEAN PLT VOLUME 7.3 fl (7.5-11.1); MONO % 10.8 % (3.8-10.2); NEUT % 75.4 % (42.8-82.8); PLATELET COUNT 468 K/MM3 (134-434); RBC 2.87 M/mm3 (4.00-5.60); RDW 15.7 % (11.9-15.9); WHITE BLOOD COUNT 12.9 K/mm3 (4.0-10.0)
[2018-12-29 06:39] LABS: ALBUMIN 2.3 g/dl (3.4-5.0); ALK PHOS 150 U/L (45-117); ANION GAP 7 MMOL/L (8-16); BILIRUBIN,TOTAL 0.7 mg/dL (0.2-1); BLOOD UREA NITROGEN 18 mg/dL (7-18); CALCIUM 8.6 mg/dL (8.5-10.1); CHLORIDE 97 mmol/L (98-107); CO2 34 mmol/L (21-32); CREATININE 0.8 mg/dL (0.55-1.3); GLUCOSE,RANDOM 107 mg/dL (74-106); MAGNESIUM 1.9 mg/dL (1.8-2.4); PHOSPHOROUS 3.9 mg/dL (2.5-4.9); POTASSIUM 3.6 mmol/L (3.5-5.1); SGOT/AST 56 U/L (15-37); SGPT/ALT 48 U/L (13-61); SODIUM 139 mmol/L (136-145); TOT PROT 5.1 g/dl (6.4-8.2)
--- NOTE | 2018-12-29 07:24 | PN ---
Physical Exam: SUBJECTIVE: 73 year old male with PMH chronic back/neck pain, multiple spinal surgeries, HTN , HLD, atrial fibrillation on Eliquis, CHF, COPD, GERD, RA, peripheral neuropathy was sent to ED for spinal surgery 12/18/18. Pt had removal of hardware from C2-C7, laminectomy C2-T1 with posterior fusion of C2-T1. removal of hardware from L3-S1(retained screw at Right S1) lamienctomy of L1/L2 and L2/ L3 posterior fusion of L1 thru S1, repair of durotomy and cage placment L2-L3 . Pt lost 1800 cc of blood in OR, was given 5 units of PRBC and 6.5L of IV fluid. Pt was sent to ICU intubated and sedated. I saw and examined the patient today. Pt reported back pain. OBJECTIVE: Vital Signs Period Temp Pulse Resp BP Sys/Dyson Pulse Ox Last 24 Hr 98.4 F-99.0 F 94-112 12-22 105-143/59-79 99-100 GENERAL: The patient is awake, alert, and fully oriented, in no acute distress. HEAD: Normal with no signs of trauma. EYES: PERRL, extraocular movements intact, sclera anicteric, conjunctiva clear. No ptosis. ENT: NG tube in place. Ears normal, nares patent, oropharynx clear without exudates, moist mucous membranes. NECK: Trachea midline, in c-collar. LUNGS: Breath sounds equal, clear to auscultation bilaterally, no wheezes, no crackles, no accessory muscle use. HEART: Regular rate and rhythm, S1, S2 without murmur, rub or gallop. ABDOMEN: Soft, nontender, nondistended, normoactive bowel sounds, no guarding, no rebound, no hepatosplenomegaly, no masses. EXTREMITIES: 2+ pulses, warm, well-perfused, no edema. NEUROLOGICAL: Cranial nerves II through XII grossly intact. Normal speech, gait not observed. moves all fours. PSYCH: Normal mood, normal affect. SKIN: Warm, dry, normal turgor, no rashes or lesions noted Laboratory Results - last 24 hr 12/21/18 12/28/18 12/28/18 08:30 05:30 05:30 WBC 12.1 H RBC 2.69 L Hgb 8.7 L Hct 25.2 L MCV 93.6 MCH 32.4 MCHC 34.6 RDW 15.7 Plt Count 361 MPV 7.7 Absolute Neuts (auto) Neutrophils % Lymphocytes % Monocytes % Eosinophils % Basophils % Nucleated RBC % PTT (Actin FS) Sodium 140 Potassium 3.2 L Chloride 101 Carbon Dioxide 33 H Anion Gap 6 L BUN 19 H Creatinine 0.6 Creat Clearance w eGFR 132.07 Random Glucose 109 H Calcium 8.0 L Phosphorus 2.8 Magnesium 1.8 Total Bilirubin AST ALT Alkaline Phosphatase Total Protein Albumin Crossmatch IS Only See Detail 12/28/18 12/28/18 12/29/18 05:30 16:00 00:30 WBC 12.4 H RBC 2.68 L Hgb 9.1 L Hct 25.5 L MCV 95.1 MCH 33.8 H MCHC 35.6 RDW 15.8 Plt Count 367 MPV 7.7 Absolute Neuts (auto) 9.2 H Neutrophils % 74.3 Lymphocytes % 12.4 D Monocytes % 10.1 Eosinophils % 2.9 Basophils % 0.3 Nucleated RBC % 0 PTT (Actin FS) 143.8 H 74.7 H Sodium Potassium Chloride Carbon Dioxide Anion Gap BUN Creatinine Creat Clearance w eGFR Random Glucose Calcium Phosphorus Magnesium Total Bilirubin AST ALT Alkaline Phosphatase Total Protein Albumin Crossmatch IS Only 12/29/18 12/29/18 12/29/18 05:30 05:30 05:30 WBC 12.9 H RBC 2.87 L Hgb 9.5 L Hct 27.3 L MCV 95.1 MCH 33.0 MCHC 34.7 RDW 15.7 Plt Count 468 H D MPV 7.3 L Absolute Neuts (auto) 9.7 H Neutrophils % 75.4 Lymphocytes % 10.7 Monocytes % 10.8 H Eosinophils % 2.7 Basophils % 0.4 Nucleated RBC % 0 PTT (Actin FS) 79.0 H Sodium 139 Potassium 3.6 Chloride 97 L Carbon Dioxide 34 H Anion Gap 7 L BUN 18 Creatinine 0.8 Creat Clearance w eGFR 94.76 Random Glucose 107 H Calcium 8.6 Phosphorus 3.9 Magnesium 1.9 Total Bilirubin 0.7 AST 56 H ALT 48 Alkaline Phosphatase 150 H Total Protein 5.1 L Albumin 2.3 L Crossmatch IS Only Active Medications Generic Name Dose Route Start Last Admin Trade Name Freq PRN Reason Stop Dose Admin Acetaminophen 1,000 mg 12/27/18 08:52 12/28/18 21:20 Ofirmev Injection - IVPB 1,000 mg Q6H PRN Administration PAIN OR FEVER Aspirin 300 mg 12/24/18 14:30 12/28/18 10:22 Asa - MO 300 mg DAILY [facility]GET Administration Benzocaine/Menthol 1 each 12/28/18 11:06 Cepacol Lozenge - MM PRN PRN SORE THROAT Chlorhexidine Gluconate 1 applic 12/22/18 22:00 12/28/18 23:26 Hibiclens For Decolonization - TP 1 applic HS [facility]GET Administration Fentanyl Citrate 50 mcg 12/28/18 13:11 Fentanyl 1,000 Mcg/20 Ml Ampul IVPUSH Q6H PRN PAIN LEVEL 7 - 10 Heparin Sodium (Porcine) 1,000 unit 12/27/18 16:16 12/27/18 22:45 Heparin - IVPUSH 1,000 unit PRN PRN Administration Heparin Heparin Sodium (Porcine) 5,000 unit 12/27/18 16:16 Heparin - IVPUSH PRN PRN Heparin Furosemide 100 mg/ Sodium 100 mls @ 10 mls/hr 12/26/18 08:30 12/29/18 02:41 Chloride IVPB 15 mg/h ASDIR [facility]IDGET 15 mls/hr Titration Protocol Ceftriaxone Sodium 2 gm/ 100 mls @ 200 mls/hr 12/27/18 15:30 12/28/18 10:22 Dextrose IVPB 200 mls/hr DAILY [facility] Administration Protocol Heparin Sodium/Dextrose 25,000 units in 500 mls @ 18 mls/hr 12/27/18 16:30 01:35 Heparin Infusion - IVPB 950 units/hr TITR [facility] 19 mls/hr Titration Protocol 900 UNITS/HR Lorazepam 2 mg 12/28/18 22:33 12/28/18 22:47 Ativan Injection - IVPUSH 12/29/18 22:32 2 mg ONCE PRN Administration ANXIETY Metoprolol Tartrate 25 mg 12/28/18 11:15 12/28/18 21:31 Lopressor - NGT Not Given BID [facility]GET Morphine Sulfate 4 mg 12/28/18 10:50 12/29/18 04:49 Morphine Sulfate IVPUSH 4 mg Q6H PRN Administration PAIN LEVEL 7 - 10 Ondansetron HCl 4 mg 12/22/18 19:07 Zofran Injection IVPUSH Q6H PRN NAUSEA Pantoprazole Sodium 40 mg 12/23/18 10:00 12/28/18 10:22 Protonix Iv IVPUSH 40 mg DAILY [facility]GET Administration ASSESSMENT/PLAN: ASSESSMENT/PLAN: NEURO - op: 12/22/18, POD#6 -Versed drip discontinued 12/25, prn versed pushes for sedation -Pain control --Fentanyl 50 mcg Q6H PRN pain 6-10 --Ofirmev for pain/fever switched to Tylenol 650 mg PO Q6H PRN pain --Morphine 4 mg IV Q6H PRN pain --> Morphine 4 mg IV Q3H PRN pain --Home oxycodone 10 mg PO Q6H added 12/29/18 -Zofran 4 mg Q6H IVP for nausea -Drains removed 12/25 -Speech and swallow yesterday rec barium swallow but pt unable to tolerate -Speech and swallow today: puree and nectar, PO meds in applesauce -Physical therapy -Pain management consulted PULMONARY -Extubated 12/28/18 -Continue to monitor respiratory status CV - Afib/HTN/CHF/CAD s/p stent in 2018 #Acute Blood loss - blood loss of 1800 cc in OR, was given 5 units of PRBC and 6.5L of IV fluid. - 2U PRCB given 12/26/18 - H/H stable 9.5/27.3 - serial CBCs - Heparin 1000U/Hour - Lasix drip DC 12/29/18 per cardio - Lasix held today 12/29/18 per cardio - Metoprolol Tartrate 25 mg PO BID - Converted to oral Lopressor yesterday: can titrate to q8hr dosing if AF rates are averaging > 100bpm. Plan to convert to Toprol XL prior to discharge. per cardio - Plan for Eliquis to be restarted tomorrow - ASA suppository changed to ASA 81 mg PO daily 12/29/18 - serial troponin negative x3 on 12/26/18 - ECHO 12/28/18: EF 55-60%. severe pulmonary HTN, pulmonary artery 71 mmhg. LVH. dilated RA/LA. mild MVP. mild mitral annular calcification. mild to moderate pulmonary regurgitation. trivial pericardial effusion. - CXR 12/29/18 showing mild increase in pulmonary vascular congestion - CXR tomorrow 12/30/18 ID -WBC now trending down, afebrile -Ceftriaxone per ID -UA positive for UTI, but urine cx negative and bld cx negative, sputum cx negative PROPHYLAXIS -SCDs, defer medical ac due to drop in h/h -Protonix 40 QD IVP FEN -No IVF -Replete potassium -Electrolytes otherwise wnl -NGT feeds with 2 sherman HN 10ml/hr x 24 hours and increase 10 ml every 6 hours to goal rate of 45 ml/hr x 24 hours to provide 2160kcal, 90gm pro, 756ml free water with additional 5 ml water flush to provide additional 125ml free water, with -Target volume =1080ml to decr overall fluid intake LINES -L radial -RIJ central line removed 12/29/18 -Left A-line removed 12/27/18 -cintron changed 12/24/18 Dispo -ICU per neurosurgery -full code Visit type - Emergency Visit Emergency Visit: Yes ED Registration Date: 12/18/18 Care time: The patient presented to the Emergency Department on the above date and was hospitalized for further evaluation of their emergent condition. - New Patient This patient is new to me today: No - Critical Care Critical Care patient: Yes Total Critical Care Time (in minutes): 35 Critical Care Statement: The care of this patient involved high complexity decision making to prevent further life threatening deterioration of the patient 's condition and/or to evaluate & treat vital organ system(s) failure or risk of failure. - Discharge Referral Referred to [facility] Med P.C.: No
--- NOTE | 2018-12-29 07:34 | PN ---
Progress Note (short form) - Note Progress Note: POD #6 Extubated yesterday. Doing well. Wrist restraints in place. Josselin cute events per RN notes. Last Vital Signs Temp Pulse Resp BP Pulse Ox 99 F 99 H 20 143/79 100 12/29/18 06:00 12/29/18 06:00 12/29/18 06:00 12/29/18 06:00 12/28/18 21:00 CBC, BMP 12/29/18 05:30 12/29/18 05:30 INR, PTT INR 2.10 (0.83-1.09) H 12/28/18 05:30 PE GEN: Alert and oriented to place, follows commands Neck: C-collar in place. Aquacel dressing c/d/i (posterior) Neuro: GMNVI bilat : Cintron to gravity LE: SCDs bilat. Soft. NT. A/P 73 yo male s/p removal of hardware from C2-C7, laminectomy C2-T1 with posterior fusion of C2-T1. removal of hardware from L3-S1(retained screw at Right S1) lamienctomy of L1/L2 and L2/L3 posterior fusion of L1 thru S1, repair of durotomy and cage placment L2-L3 Continue supportive measures Rectal ASA daily IV heparin Cont Rocephin Pain managment Speech and swallow eval Cont cintron until patient OOB and ambulating Wear you C-Collar 23/24 hrs/day (may remove while eating or bathing) Cont tube feeds for now --> unable to cooperate for swallow eval at bedside. Above discussed with Dr. Taylor and agrees
[2018-12-29 08:12] LABS: INR 1.55 (0.83-1.09); PROTHROMBIN TIME (PATIENT) 18.4 SEC (9.7-13.0)
--- NOTE | 2018-12-29 08:44 | PN ---
Progress Note, Physician Chief Complaint: Seen and examined in ICU: extubated yesterday morning. He has diuresed well and is negative 10-12 L over last 3 days. CXR has improved sig since weekend. He is alert, oriented. Denies CP or SOB. He has back pain. Moves all 4 extremities C-collar remains in place History of Present Illness: TELE: reviewed. Atrial fibrillation, rare spikes to 120s- self limited. Rare VPCs and occasionl V-couplets. - Current Medication List Current Medications: Active Medications Acetaminophen (Ofirmev Injection -) 1,000 mg IVPB Q6H PRN PRN Reason: PAIN OR FEVER Last Admin: 12/28/18 21:20 Dose: 1,000 mg Aspirin (Asa -) 300 mg OK DAILY [facility] Last Admin: 12/28/18 10:22 Dose: 300 mg Benzocaine/Menthol (Cepacol Lozenge -) 1 each MM PRN PRN PRN Reason: SORE THROAT Chlorhexidine Gluconate (Hibiclens For Decolonization -) 1 applic TP HS [facility] Last Admin: 12/28/18 23:26 Dose: 1 applic Heparin Sodium (Porcine) (Heparin -) 1,000 unit IVPUSH PRN PRN PRN Reason: Heparin Last Admin: 12/27/18 22:45 Dose: 1,000 unit Heparin Sodium (Porcine) (Heparin -) 5,000 unit IVPUSH PRN PRN PRN Reason: Heparin Ceftriaxone Sodium 2 gm/ (Dextrose) 100 mls @ 200 mls/hr IVPB DAILY [facility]; Protocol Last Admin: 12/28/18 10:22 Dose: 200 mls/hr Heparin Sodium/Dextrose (Heparin Infusion -) 25,000 units in 500 mls @ 18 mls/ hr IVPB TITR [facility]; Protocol Last Titration: 12/29/18 07:45 Dose: 900 units/hr, 18 mls/hr Lorazepam (Ativan Injection -) 2 mg IVPUSH ONCE PRN PRN Reason: ANXIETY Stop: 12/29/18 22:32 Last Admin: 12/28/18 22:47 Dose: 2 mg Metoprolol Tartrate (Lopressor -) 25 mg NGT BID [facility] Last Admin: 12/28/18 21:31 Dose: Not Given Morphine Sulfate (Morphine Sulfate) 4 mg IVPUSH Q3H PRN PRN Reason: PAIN LEVEL 7 - 10 Ondansetron HCl (Zofran Injection) 4 mg IVPUSH Q6H PRN PRN Reason: NAUSEA Pantoprazole Sodium (Protonix Iv) 40 mg IVPUSH DAILY [facility] Last Admin: 12/28/18 10:22 Dose: 40 mg - Objective Vital Signs: Vital Signs Temperature 99 F 12/29/18 06:00 Pulse Rate 99 H 12/29/18 06:00 Respiratory Rate 20 12/29/18 06:00 Blood Pressure 143/79 12/29/18 06:00 O2 Sat by Pulse Oximetry (%) 100 12/28/18 21:00 Constitutional: Yes: No Distress HENT: Yes: Other (C-collar) Cardiovascular: Yes: Pulse Irregular Respiratory: Yes: Other (= breath sounds anteriorly, laterally. No active wheezing.) Gastrointestinal: Yes: Soft (Nontender. Soft.) Edema: Yes Edema: LLE: 1+ (ankle), RLE: 1+ (ankle) Peripheral Pulses WNL: Yes Neurological: Yes: Alert, Oriented Labs: CBC, BMP 12/29/18 05:30 12/29/18 05:30 INR, PTT INR 1.55 (0.83-1.09) H 12/29/18 05:30 Microbiology 12/24/18 16:50 Sputum - Endotrachea Suction/Ventilator Gram Stain - Final 12/24/18 16:50 Sputum - Endotrachea Suction/Ventilator Sputum Culture - Final NORMAL RESPIRATORY KASSIDY 12/24/18 05:30 Blood - Peripheral Venous Blood Culture - Final NO GROWTH AFTER 5 DAYS INCUBATION 12/24/18 03:00 Blood - Peripheral Venous Blood Culture - Final NO GROWTH AFTER 5 DAYS INCUBATION Laboratory Tests 12/29/18 12/29/18 12/29/18 05:30 05:30 05:30 WBC 12.9 H Hgb 9.5 L Hct 27.3 L Plt Count 468 H D PTT (Actin FS) 79.0 H Sodium 139 Potassium 3.6 BUN 18 Creatinine 0.8 Magnesium 1.9 AST 56 H ALT 48 - ....Imaging Chest X-ray: Image Reviewed EKG: Image Reviewed Problem List - Problems (1) Back pain Code(s): M54.9 - DORSALGIA, UNSPECIFIED (2) Paroxysmal atrial fibrillation Code(s): I48.0 - PAROXYSMAL ATRIAL FIBRILLATION (3) CAD (coronary artery disease) Code(s): I25.10 - ATHSCL HEART DISEASE OF [place] CORONARY ARTERY W/O ANG PCTRS Qualifiers: Coronary Disease-Associated Artery/Lesion type: [place] artery [place] vs. transplanted heart: [place] heart Associated angina: without angina Qualified Code(s): I25.10 - Atherosclerotic heart disease of [place] coronary artery without angina pectoris (4) Hx of heart artery stent Code(s): Z95.5 - PRESENCE OF CORONARY ANGIOPLASTY IMPLANT AND GRAFT (5) HTN (hypertension) Code(s): I10 - ESSENTIAL (PRIMARY) HYPERTENSION Qualifiers: Hypertension type: essential hypertension Qualified Code(s): I10 - Essential (primary) hypertension (6) Pulmonary hypertension Code(s): I27.20 - PULMONARY HYPERTENSION, UNSPECIFIED (7) Anticoagulation management encounter Code(s): Z51.81 - ENCOUNTER FOR THERAPEUTIC DRUG LEVEL MONITORING; Z79.01 - RN IMAGING (CURRENT) USE OF ANTICOAGULANTS Assessment/Plan IMP: 1. Intractable neck pain, cervical and lumbar disc disease POD #7 Removal of hardware from C2-C7, laminectomy C2-T1 with posterior fusion of C2-T1. removal of hardware from L3-S1(retained screw at Right S1) laminectomy of L1/L2 and L2/L3 posterior fusion of L1 thru S1, repair of durotomy and cage placment L2-L3 2. PHTN, chronic 3. CAD s/p PCI 4. Permanent AF 5. Acute on chronic diastolic CHF 6. Moderate MR 7. Post op fever: cultures negative. 8. Anemia REC: 1. Now extubated since yesterday morning. CXR much improved since Friday with net neg fluid balance of 10-12 L since Friday. Discontinue Lasix gtts today and will resume home dose within next 24 hours. Keep K+ and Mg2+ repleted. 2. Blood cultures remain negative; ID following. WBC down. 3. H/H remains stable with no further drift or evidence of bleeding in last 48 hours. Continue to monitor daily H/H. 4. Resumed AC for AF 48 hours ago with UFH gtts, goal PTT 50-70. Will resume oral AC within next 24 hours. 6. Converted to oral Lopressor yesterday: can titrate to q8hr dosing if AF rates are averaging > 100bpm. Plan to convert to Toprol XL prior to discharge. 8. ASA has been resumed (prior coronary PCI) 9. Will need rehab upon discharge. Will follow.
[2018-12-29] MEDS ORDERED: POTASSIUM CHLORIDE 20 MEQ PREMIX IVPB 100 ML IVPB ONE ×2 (09:02→11:15)
[2018-12-29] MEDS ORDERED: DEXTROSE 5%-WATER 100 ML IVPB ONE (09:16)
[2018-12-29] MEDS: ASPIRIN 300 MG SUPP.RECT PR SCH (09:45)
[2018-12-29] MEDS: METOPROLOL TARTRATE 25 MG TABLET (FP) NGT SCH ×2 (09:46→21:39)
[2018-12-29] MEDS: PANTOPRAZOLE SODIUM 40 MG VIAL IVPUSH SCH (09:46)
[2018-12-29] MEDS: CEFTRIAXONE 2 GM in DEXTROSE 5%-WATER 100 ML IVPB SCH (09:46)
[2018-12-29] MEDS: ACETAMINOPHEN 1000 MG/100 ML VIAL (NON FORMULARY) IVPB PRN (10:53)
--- NOTE | 2018-12-29 11:38 | PN ---
Teaching Attending Note Name of Resident: Winnie Juan ATTENDING PHYSICIAN STATEMENT I saw and evaluated the patient. I reviewed the resident's note and discussed the case with the resident. I agree with the resident's findings and plan as documented. SUBJECTIVE: Pt seen and examined in the ICU. Remains extubated, denies shortness of breath. Continued to diurese well on lasix gtt. OBJECTIVE: Vital Signs Period Temp Pulse Resp BP Sys/Dyosn Pulse Ox Last 24 Hr 98.4 F-99.0 F 94-111 17-22 105-143/59-79 100-100 Intake & Output 12/26/18 12/27/18 12/28/18 12/29/18 23:59 23:59 23:59 23:59 Intake Total 1243 1790 1620 580 Output Total 3200 6800 6200 2750 Balance -1957 -5010 -6430 -2170 Weight 106.186 kg 102.194 kg 100.017 kg 88.451 kg Gen: NAD in cervical collar Heart: RRR Lung: decreased breath sounds at the bases Abd: soft, nontender Ext: edema resolving CBC, BMP 12/29/18 05:30 12/29/18 05:30 Active Medications Benzocaine/Menthol (Cepacol Lozenge -) 1 each MM PRN PRN PRN Reason: SORE THROAT Chlorhexidine Gluconate (Hibiclens For Decolonization -) 1 applic TP HS [facility] Last Admin: 12/28/18 23:26 Dose: 1 applic Heparin Sodium (Porcine) (Heparin -) 1,000 unit IVPUSH PRN PRN PRN Reason: Heparin Last Admin: 12/27/18 22:45 Dose: 1,000 unit Heparin Sodium (Porcine) (Heparin -) 5,000 unit IVPUSH PRN PRN PRN Reason: Heparin Ceftriaxone Sodium 2 gm/ (Dextrose) 100 mls @ 200 mls/hr IVPB DAILY [facility]; Protocol Last Admin: 12/29/18 09:46 Dose: 200 mls/hr Heparin Sodium/Dextrose (Heparin Infusion -) 25,000 units in 500 mls @ 18 mls/ hr IVPB TITR [facility]; Protocol Last Titration: 12/29/18 07:45 Dose: 900 units/hr, 18 mls/hr Lorazepam (Ativan Injection -) 2 mg IVPUSH ONCE PRN PRN Reason: ANXIETY Stop: 12/29/18 22:32 Last Admin: 12/28/18 22:47 Dose: 2 mg Metoprolol Tartrate (Lopressor -) 25 mg NGT BID [facility] Last Admin: 12/29/18 09:46 Dose: 25 mg Morphine Sulfate (Morphine Sulfate) 4 mg IVPUSH Q3H PRN PRN Reason: PAIN LEVEL 7 - 10 Last Admin: 12/29/18 08:40 Dose: 4 mg Ondansetron HCl (Zofran Injection) 4 mg IVPUSH Q6H PRN PRN Reason: NAUSEA Pantoprazole Sodium (Protonix Iv) 40 mg IVPUSH DAILY [facility] Last Admin: 12/29/18 09:46 Dose: 40 mg ASSESSMENT AND PLAN: s/p CHELE C2-T1/L3-S1/Laminectomy/L1-S1 Posterior Fusion/Cage Placement/Durotomy repair Acute Respiratory Failure Acute Blood Loss Anemia CAD Atrial Fibrillation Acute on Chronic Diastolic Heart Failure Volume Overload improving Pneumonia UTI COPD Rheumatoid Arthritis HTN Hyperlipidemia h/o Prostate Ca - lasix as needed - monitor urine output, creatinine - continue antibiotics - rate control - continue anticoagulation - swallow eval - DVT/GI prophylaxis - can monitor on telemetry if ok with surgery critical care time spent in reviewing chart, evaluating patient and formulating plan 35 min
--- NOTE | 2018-12-29 11:51 | PN ---
Progress Note, HEEL SLICKER - Note Progress Note: Selected Entries 12/29/18 12/29/18 02:00 06:00 Temperature 99.0 F 99 F Laboratory Tests 12/27/18 12/28/18 12/29/18 05:25 05:30 05:30 WBC 14.6 H 12.1 H 12.9 H Looks much better. Minimal upper airway secretions. Dysphonic but improving. NGT removed. Denies odynophagia today with swallow. c/o discomfort in back/neck/ pulling at cervical collar. Nursing aware. Collar adjusted by PT. Swallowing reassessed. Pt swallows 2-3 times per trial, possibly indicative of stasis. Brief, weak cough with thin liquid -suspect silent aspiration on thins related to prolonged intubation/dysphonia/improving. MBS indicated,however, due to pt's back/neck dyscomfort in bed, I believe moving pt to chair in radiology is contraindicated. Trial of Dys puree, extra gravy to thin out. Gomer thick liquids. No thin liquids. Crush meds, per stoper's guidelines,and give in applesauce. Alternate 1/2 tsp puree with tsp nectar. Monitor for congestion, fever, throat clearing, sob.
[2018-12-29] MEDS: oxyCODONE HCL 5 MG TABLET PO PRN (16:20)
[2018-12-29] MEDS: ACETAMINOPHEN 325 MG TABLET (FP) PO PRN (16:22)
--- NOTE | 2018-12-29 20:42 | CONSULT ---
Consult Consult Specialty:: Pain Management - History of Present Illness Chief Complaint: Back pain and Neck pain S/p surgery History of Present Illness: 73 yr old male with h/o chronic back pain and neck pain with fusion. His pain was persistent and underwent removal of hardware from C2-C7, laminectomy C2-T1 with posterior fusion of C2-T1. removal of hardware from L3-S1(retained screw at Right S1) lamienctomy of L1/L2 and L2/L3 posterior fusion of L1 thru S1, repair of durotomy and cage placment L2-L3. He is c/o pain 10/10 in Neck and back and feels better after medication. He has difficulty in bed mobility and ADLs. - History Source History Provided By: Patient Limitations to Obtaining History: No Limitations - Past Medical History CHART CHANGER: Yes: Peripheral Neuropathy Cardio/Vascular: Yes: CAD, HTN, Hyperlipdemia Gastrointestinal: Yes: GERD Musculoskeletal: Yes: Other (Chronic rt ankle pain) Rheumatology: Yes: Gout - Alcohol/Substance Use Hx Alcohol Use: No History of Substance Use: reports: None - Smoking History Smoking history: Current every day smoker Have you smoked in the past 12 months: No - Social History ADL: Independent History of Recent Travel: No Home Medications - Allergies Allergies/Adverse Reactions: Allergies Allergy/AdvReac Type Severity Reaction Status Date / Time gentamicin Allergy Severe Difficulty Verified 12/18/18 08:25 Breathing ketorolac [From Toradol] Allergy Unknown Difficulty Verified 12/18/18 08:25 Breathing propofol Allergy Unknown Difficulty Verified 12/18/18 08:25 Breathing - Home Medications Home Medications: Ambulatory Orders Febuxostat [Uloric -] 40 mg PO DAILY 04/03/17 Methocarbamol 750 mg PO BID PRN 04/03/17 Montelukast Na [Singulair -] 10 mg PO HS 04/03/17 Omeprazole Magnesium [Prilosec] 10 mg PO DAILY 04/03/17 Oxycodone HCl [Oxycodone HCl ER] 10 mg PO BID 10/28/17 Clopidogrel Bisulfate [Plavix -] 75 mg PO DAILY #30 tablet 01/12/18 Furosemide [Lasix] 40 mg PO DAILY #30 tablet 01/12/18 Metoprolol Succinate [Toprol XL -] 50 mg PO DAILY #30 tab.sr.24h 01/12/18 Atorvastatin Ca [Lipitor] 40 mg PO HS 11/20/18 Folic Acid 1 mg PO DAILY 11/20/18 Linaclotide [Linzess] 145 mcg PO DAILY 11/20/18 Naloxegol Oxalate [Movantik] 25 mg PO ASDIR 11/20/18 Nortriptyline HCl [Pamelor -] 10 mg PO DAILY 11/20/18 Tamsulosin HCl [Flomax -] 0.4 mg PO DAILY 11/20/18 Zolpidem Tartrate [Ambien] 10 mg PO HS PRN 11/20/18 Apixaban [Eliquis -] 5 mg PO BID 60 Days #30 tablet 11/24/18 oxyCODONE HCL [Roxicodone -] 10 mg PO Q6H PRN tablet MDD 10mg 11/24/18 Review of Systems - Review of Systems Constitutional: reports: No Symptoms Eyes: reports: No Symptoms HENT: reports: No Symptoms Neck: reports: Pain on Movement, Other (Cervical collar) Cardiovascular: reports: No Symptoms Respiratory: reports: No Symptoms Gastrointestinal: reports: No Symptoms Musculoskeletal: reports: Back Pain, Other (Neck apin) Psychiatric: reports: No Symptoms Pain Intensity: 10 Physical Exam Vital Signs: Vital Signs Temperature 97.8 F 12/29/18 18:00 Pulse Rate 90 12/29/18 18:00 Respiratory Rate 20 12/29/18 18:00 Blood Pressure 112/68 12/29/18 18:00 O2 Sat by Pulse Oximetry (%) 100 12/29/18 10:00 Constitutional: Yes: Calm Eyes: Yes: WNL HENT: Yes: WNL Cardiovascular: Yes: WNL Respiratory: Yes: WNL Gastrointestinal: Yes: WNL Musculoskeletal: Yes: Back Pain, Other (Neck pain) Extremities: Yes: WNL Edema: No Neurological: Yes: WNL ...Motor Strength: WNL Psychiatric: Yes: Alert, Oriented Labs: CBC, BMP 12/29/18 05:30 12/29/18 05:30 Problem List - Problems (1) Postoperative pain after spinal surgery Code(s): G89.18 - OTHER ACUTE POSTPROCEDURAL PAIN Assessment/Plan Discuss in detail and answered all his question 1. continue current care 2. Continue Morphine Sulphate 4 mg IVPUSH q 4 PRN 3. Neurontin 300 mg PO TID 4. Oxicodone 10 mg PO q 6 PRN 5. DVT Prophylaxis 6. Bowel Regimen 7. Bed Mobility with Assist 8. Physical therapy. Thank you very much for your kind referral Please call me if you have any questions [phone] Dr. Pereira
--- NOTE | 2018-12-29 21:02 | PN ---
Progress Note, Physician History of Present Illness: Pt remains agitated - Current Medication List Current Medications: Active Medications Acetaminophen (Tylenol -) 650 mg PO Q6H PRN PRN Reason: PAIN LEVEL 4 - 6 Last Admin: 12/29/18 16:22 Dose: 650 mg Aspirin (Ecotrin -) 81 mg PO DAILY [facility] Benzocaine/Menthol (Cepacol Lozenge -) 1 each MM PRN PRN PRN Reason: SORE THROAT Chlorhexidine Gluconate (Hibiclens For Decolonization -) 1 applic TP HS [facility] Last Admin: 12/28/18 23:26 Dose: 1 applic Gabapentin (Neurontin -) 300 mg PO TID [facility] Heparin Sodium (Porcine) (Heparin -) 1,000 unit IVPUSH PRN PRN PRN Reason: Heparin Last Admin: 12/27/18 22:45 Dose: 1,000 unit Heparin Sodium (Porcine) (Heparin -) 5,000 unit IVPUSH PRN PRN PRN Reason: Heparin Ceftriaxone Sodium 2 gm/ (Dextrose) 100 mls @ 200 mls/hr IVPB DAILY [facility]; Protocol Last Admin: 12/29/18 09:46 Dose: 200 mls/hr Heparin Sodium/Dextrose (Heparin Infusion -) 25,000 units in 500 mls @ 18 mls/ hr IVPB TITR [facility]; Protocol Last Titration: 12/29/18 07:45 Dose: 900 units/hr, 18 mls/hr Lorazepam (Ativan Injection -) 2 mg IVPUSH ONCE PRN PRN Reason: ANXIETY Stop: 12/29/18 22:32 Last Admin: 12/28/18 22:47 Dose: 2 mg Metoprolol Tartrate (Lopressor -) 25 mg NGT BID [facility] Last Admin: 12/29/18 09:46 Dose: 25 mg Morphine Sulfate (Morphine Sulfate) 4 mg IVPUSH Q3H PRN PRN Reason: PAIN LEVEL 7 - 10 Last Admin: 12/29/18 20:18 Dose: 4 mg Ondansetron HCl (Zofran Injection) 4 mg IVPUSH Q6H PRN PRN Reason: NAUSEA Oxycodone HCl (Roxicodone -) 10 mg PO Q6H PRN PRN Reason: PAIN LEVEL 6-10 Last Admin: 12/29/18 16:20 Dose: 10 mg Pantoprazole Sodium (Protonix Iv) 40 mg IVPUSH DAILY [facility] Last Admin: 12/29/18 09:46 Dose: 40 mg - Objective Vital Signs: Vital Signs Temperature 98.7 F 12/29/18 20:00 Pulse Rate 91 H 12/29/18 20:00 Respiratory Rate 28 H 12/29/18 20:00 Blood Pressure 103/69 12/29/18 20:00 O2 Sat by Pulse Oximetry (%) 100 12/29/18 20:33 HENT: Yes: Other ((+) C-collar) Cardiovascular: Yes: Pulse Irregular Respiratory: Yes: WNL, Regular, CTA Bilaterally Gastrointestinal: Yes: WNL, Normal Bowel Sounds, Soft Edema: LLE: Trace, RLE: Trace Labs: CBC, BMP 12/29/18 05:30 12/29/18 05:30 INR, PTT INR 1.55 (0.83-1.09) H 12/29/18 05:30 Problem List - Problems (1) Back pain Assessment/Plan: 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, laminectomy C2-T1 with posterior fusion of C-T1, removal of hardware from L3-S1 (retained screw at right S1) laminectomy of L1/L2 and L2/L3 posterior fusion of L1 through S1, repair of durotomy and cage placement L2-L3 Cont IV ceftriaxone Urine culture (+) for yeast Pain management consult noted Add stool softners Code(s): M54.9 - DORSALGIA, UNSPECIFIED (2) Acute on chronic diastolic (congestive) heart failure Assessment/Plan: Cont IV lasix as per cardio Code(s): I50.33 - ACUTE ON CHRONIC DIASTOLIC (CONGESTIVE) HEART FAILURE (3) Afib Assessment/Plan: Pt now on AC w/ IV heparin drip and monitor for bleeding closely Monitor H/H Heart rate controlled Code(s): I48.91 - UNSPECIFIED ATRIAL FIBRILLATION (4) Anemia Assessment/Plan: Acute blood loss anemia S/P blood transfusions Monitor H/H Code(s): D64.9 - ANEMIA, UNSPECIFIED (5) CAD (coronary artery disease) Assessment/Plan: Plavix was stopped Pt had been on it for a yr s/p stent placement Code(s): I25.10 - ATHSCL HEART DISEASE OF [place] CORONARY ARTERY W/O ANG PCTRS Qualifiers: Coronary Disease-Associated Artery/Lesion type: [place] artery [place] vs. transplanted heart: [place] heart Associated angina: without angina Qualified Code(s): I25.10 - Atherosclerotic heart disease of [place] coronary artery without angina pectoris (6) GERD (gastroesophageal reflux disease) Code(s): K21.9 - GASTRO-ESOPHAGEAL REFLUX DISEASE WITHOUT ESOPHAGITIS (7) HLD (hyperlipidemia) Code(s): E78.5 - HYPERLIPIDEMIA, UNSPECIFIED (8) HTN (hypertension) Code(s): I10 - ESSENTIAL (PRIMARY) HYPERTENSION Qualifiers: Hypertension type: essential hypertension Qualified Code(s): I10 - Essential (primary) hypertension (9) Hx of heart artery stent Code(s): Z95.5 - PRESENCE OF CORONARY ANGIOPLASTY IMPLANT AND GRAFT (10) COPD (chronic obstructive pulmonary disease) Code(s): J44.9 - CHRONIC OBSTRUCTIVE PULMONARY DISEASE, UNSPECIFIED
[2018-12-29] MEDS: CHLORHEXIDINE GLUCONATE 4% CLEANSER FOR DECOLONIZATION TP SCH (21:39)
[2018-12-29] MEDS: GABAPENTIN 300 MG CAPSULE (FP) PO SCH (21:40)
[2018-12-29] MEDS: HEPARIN INFUSION - 25,000 UNITS/500 ML INFUS.BAG IVPB SCH ×2 (21:57→22:18)
[2018-12-30] MEDS: morphine SULFATE 4 MG/ML VIAL IVPUSH PRN ×7 (00:37→23:10)
[2018-12-30] MEDS: ACETAMINOPHEN 325 MG TABLET (FP) PO PRN ×3 (03:44→21:29)
[2018-12-30] MEDS: GABAPENTIN 300 MG CAPSULE (FP) PO SCH ×3 (06:20→21:28)
[2018-12-30 06:38] LABS: BASO % 0.3 % (0-2.0); EOS % 4.2 % (0-4.5); HEMATOCRIT 26.3 % (35.4-49); LYMPH % 14.9 % (8-40); MCH 32.3 pg (25.7-33.7); MCHC 34.2 g/dl (32.0-35.9); MEAN CELL VOLUME 94.4 fl (80-96); MONO % 10.7 % (3.8-10.2); NEUT % 69.9 % (42.8-82.8); PLATELET COUNT 484 K/MM3 (134-434); RBC 2.78 M/mm3 (4.00-5.60); RDW 15.7 % (11.9-15.9); WHITE BLOOD COUNT 12.7 K/mm3 (4.0-10.0)
[2018-12-30 06:41] LABS: ALBUMIN 2.2 g/dl (3.4-5.0); ALK PHOS 128 U/L (45-117); ANION GAP 4 MMOL/L (8-16); BILIRUBIN,TOTAL 0.5 mg/dL (0.2-1); BLOOD UREA NITROGEN 22 mg/dL (7-18); CALCIUM 8.2 mg/dL (8.5-10.1); CHLORIDE 98 mmol/L (98-107); CO2 37 mmol/L (21-32); CREATININE 0.8 mg/dL (0.55-1.3); GLUCOSE,RANDOM 104 mg/dL (74-106); MAGNESIUM 1.9 mg/dL (1.8-2.4); PHOSPHOROUS 3.7 mg/dL (2.5-4.9); POTASSIUM 3.3 mmol/L (3.5-5.1); SGOT/AST 47 U/L (15-37); SGPT/ALT 43 U/L (13-61); SODIUM 139 mmol/L (136-145); TOT PROT 4.8 g/dl (6.4-8.2)
--- NOTE | 2018-12-30 07:17 | PN ---
Progress Note (short form) - Note Progress Note: POD #7 Recovering slowly. Still c/o severe neck/back pain. Pain Management Consult/Dr. Pereira appreciated. Doing well. Per RN notes, no acute events over past 24 hours. Denies n/v/f/c, CP, palpitations, SOB, DOES, numbness or tingling sensation Last Vital Signs Temp Pulse Resp BP Pulse Ox 98.5 F 87 19 102/67 100 12/30/18 06:00 12/30/18 06:00 12/30/18 06:00 12/30/18 06:00 12/29/18 22:20 CBC, BMP 12/30/18 05:30 12/30/18 05:30 PE GEN: Alert and oriented to place, follows commands Neck: C-collar in place. Aquacel dressing x2 replaced yesterday (posterior neck & back) Neuro: GMNVI bilat : Cintron to gravity LE: SCDs bilat. Soft. NT. A/P POD #7 s/p removal of hardware from C2-C7, laminectomy C2-T1 with posterior fusion of C2-T1. Removal of hardware from L3-S1(retained screw at Right S1) lamienctomy of L1/2 and L2/3 posterior fusion of L1-S1, repair of durotomy and cage placment L2/3 1. Continue supportive measures 2. Rectal ASA daily 3. DVT PPX 4. Cont Rocephin 5. Speech and swallow eval 6. Cont cintron until patient OOB and ambulating 7. Wear you C-Collar 23/24 hrs/day (may remove while eating or bathing) 8. Puree and thickened liquids per L. Kaelyn 9. Bed Mobility with assist 10. PT 11. Per Pain Management: - Continue Morphine Sulphate 4 mg IVPUSH q 4 PRN - Neurontin 300 mg PO TID - Oxicodone 10 mg PO q 6 PRN Above discussed with Dr. Taylor and agree
[2018-12-30] MEDS ORDERED: POTASSIUM CHLORIDE ORAL LIQUID 20 MEQ/15 ML PO ONE (07:50)
[2018-12-30] MEDS ORDERED: DEXTROSE 5%-WATER 100 ML IVPB ONE (08:06)
[2018-12-30] MEDS: oxyCODONE HCL 5 MG TABLET PO PRN ×3 (08:08→21:28)
--- NOTE | 2018-12-30 08:13 | PN ---
Physical Exam: SUBJECTIVE: Patient seen and examined. Was extubated 12/28/18, now on puree diet. Still requiring significant medication for pain management, Pain mx consult on board. Lasix drip held yesterday. OBJECTIVE: Vital Signs Period Temp Pulse Resp BP Sys/Dyson Pulse Ox Last 24 Hr 97.8 F-99.2 F 80-97 18-28 101-127/62-72 100-100 Vital Signs Temp 98.5 F 12/30/18 06:00 Pulse 87 12/30/18 06:00 Resp 19 12/30/18 06:00 BP 102/67 12/30/18 06:00 Pulse Ox 100 12/29/18 22:20 Intake & Output 12/29/18 12/29/18 12/30/18 11:59 23:59 11:59 Intake Total 580 376 326 Output Total 4500 300 400 Balance -3920 76 -74 Weight 88.451 kg 88.405 kg Intake: IV 480 256 276 HEPARIN INFUSION - 25,000 240 216 216 units In 500 ml @ 900 UNITS/HR 18 mls/hr IVPB TITR [facility] Rx#:[id number] Lasix Injection - 100 mg 240 40 In Normal Saline - 90 ml @ 10 mls/hr IVPB ASDIR [facility] Rx#:[id number] SALINE LOCK 60 IVPB 100 100 Oral 20 50 Output: Urine 4500 300 400 Cintron 4500 300 400 Other: Voiding Method Indwelling Catheter Indwelling Catheter Bowel Movement No No No Weight Measurement Method [facility] GENERAL: The patient is awake, alert, and fully oriented, in no respiratory distress. EYES: PERRL, extraocular movements intact, sclera anicteric, conjunctiva clear. ENT: Off Nasal cannular sats >92 NECK: Neck collar LUNGS: Breath sounds equal, clear to auscultation bilaterally HEART: Regular rate and rhythm, S1, S2 ABDOMEN: Soft, nontender, nondistended, normoactive bowel sounds EXTREMITIES: 2+ pulses, warm, well-perfused, no edema. SCDs b/l NEUROLOGICAL: Cranial nerves II through XII grossly intact. Normal speech, gait not observed. Laboratory Results - last 24 hr 12/26/18 12/30/18 12/30/18 13:45 05:30 05:30 WBC 12.7 H RBC 2.78 L Hgb 9.0 L Hct 26.3 L MCV 94.4 MCH 32.3 MCHC 34.2 RDW 15.7 Plt Count 484 H MPV 7.0 L Absolute Neuts (auto) 8.9 H Neutrophils % 69.9 Lymphocytes % 14.9 D Monocytes % 10.7 H Eosinophils % 4.2 Basophils % 0.3 Nucleated RBC % 0 PTT (Actin FS) 33.5 Sodium Potassium Chloride Carbon Dioxide Anion Gap BUN Creatinine Creat Clearance w eGFR Random Glucose Calcium Phosphorus Magnesium Total Bilirubin AST ALT Alkaline Phosphatase Total Protein Albumin Blood Type O POSITIVE Antibody Screen Negative Crossmatch See Detail 12/30/18 05:30 WBC RBC Hgb Hct MCV MCH MCHC RDW Plt Count MPV Absolute Neuts (auto) Neutrophils % Lymphocytes % Monocytes % Eosinophils % Basophils % Nucleated RBC % PTT (Actin FS) Sodium 139 Potassium 3.3 L Chloride 98 Carbon Dioxide 37 H Anion Gap 4 L BUN 22 H Creatinine 0.8 Creat Clearance w eGFR 94.76 Random Glucose 104 Calcium 8.2 L Phosphorus 3.7 Magnesium 1.9 Total Bilirubin 0.5 AST 47 H ALT 43 Alkaline Phosphatase 128 H Total Protein 4.8 L Albumin 2.2 L Blood Type Antibody Screen Crossmatch Active Medications Generic Name Dose Route Start Last Admin Trade Name Freq PRN Reason Stop Dose Admin Acetaminophen 650 mg 12/29/18 13:00 12/30/18 03:44 Tylenol - PO 650 mg Q6H PRN Administration PAIN LEVEL 4 - 6 Apixaban 5 mg 12/30/18 10:00 Eliquis - PO BID [facility] Aspirin 81 mg 12/30/18 10:00 Ecotrin - PO DAILY [facility] Benzocaine/Menthol 1 each 12/28/18 11:06 Cepacol Lozenge - MM PRN PRN SORE THROAT Chlorhexidine Gluconate 1 applic 12/22/18 22:00 12/29/18 21:39 Hibiclens For Decolonization - TP 1 applic HS [facility] Administration Gabapentin 300 mg 12/29/18 22:00 12/30/18 06:20 Neurontin - PO 300 mg TID [facility] Administration Heparin Sodium (Porcine) 1,000 unit 12/27/18 16:16 12/27/18 22:45 Heparin - IVPUSH 1,000 unit PRN PRN Administration Heparin Heparin Sodium (Porcine) 5,000 unit 12/27/18 16:16 Heparin - IVPUSH PRN PRN Heparin Ceftriaxone Sodium 2 gm/ 100 mls @ 200 mls/hr 12/27/18 15:30 12/29/18 09:46 Dextrose IVPB 200 mls/hr DAILY [facility] Administration Protocol Heparin Sodium/Dextrose 25,000 units in 500 mls @ 18 mls/hr 12/27/18 16:30 22:18 Heparin Infusion - IVPB 900 units/hr TITR [facility] 18 mls/hr Administration Protocol 900 UNITS/HR Potassium Chloride 10 meq in 100 mls @ 100 mls/hr 12/30/18 08:00 Potassium Chloride 10 Meq Premix Ivpb - IVPB 12/30/18 10:59 Q60M [facility] Metoprolol Tartrate 25 mg 12/28/18 11:15 12/29/18 21:39 Lopressor - NGT 25 mg BID [facility] Administration Morphine Sulfate 4 mg 12/29/18 08:32 12/30/18 08:08 Morphine Sulfate IVPUSH 4 mg Q3H PRN Administration PAIN LEVEL 7 - 10 Ondansetron HCl 4 mg 12/22/18 19:07 Zofran Injection IVPUSH Q6H PRN NAUSEA Oxycodone HCl 10 mg 12/29/18 12:59 12/30/18 08:08 Roxicodone - PO 10 mg Q6H PRN Administration PAIN LEVEL 6-10 Pantoprazole Sodium 40 mg 12/23/18 10:00 12/29/18 09:46 Protonix Iv IVPUSH 40 mg DAILY [facility] Administration ASSESSMENT/PLAN: Pt is 73 yo M with PMH chronic back/neck pain, multiple spinal surgeries, HTN, HLD, atrial fibrillation on Eliquis, CHF, COPD, GERD, RA, peripheral neuropathy admitted on spinal surgery 12/18/18, now s/p removal of hardware from C2-C7, laminectomy C2-T1 with posterior fusion of C2-T1, removal of hardware from L3-S1 (retained screw at Right S1) laminectomy of L1/L2 and L2/L3 posterior fusion of L1 thru S1, repair of durotomy and cage placment L2-L3 12/22/18, with 1800 cc of blood in OR, s/p 5 units of PRBC and 6.5L of IV fluid admitted to ICU intubated and in volume overload now extubated (12/28/18) NEURO - op: 12/22/18, POD#7 -Pt extubated 12/28/18 and off sedation, less agitated with NGT and ET out -Pain control, Pain mx recs appreciated --Fentanyl 50 mcg Q6H PRN pain 6-10- d/cd --Tylenol 650 mg PO Q6H cont --Morphine 4 mg IV Q3H PRN pain -cont --Home oxycodone 10 mg PO Q6H added 12/29/18- cont -Zofran 4 mg Q6H IVP for nausea -Drains removed 12/25 -Speech and swallow today: puree and nectar, PO meds in applesauce -Physical therapy -Pain management consulted PULMONARY -Extubated 12/28/18 -Continue to monitor respiratory status - Off Nasal cannular CV - Afib/HTN/CHF/CAD s/p stent in 2018 #Acute Blood loss - blood loss of 1800 cc in OR, was given 5 units of PRBC and 6.5L of IV fluid. - 2U PRCB given 12/26/18 - H/H stable - Lasix drip DC 12/29/18 per cardio - Metoprolol Tartrate 25 mg PO BID - per cardio: Cont oral Lopressor: can titrate to q8hr dosing if AF rates are averaging > 100bpm. Plan to convert to Toprol XL prior to discharge. -Eliquis resumed - ASA 81 mg PO daily 12/29/18 - serial troponin negative x3 on 12/26/18 - ECHO 12/28/18: EF 55-60%. severe pulmonary HTN, pulmonary artery 71 mmhg. LVH. dilated RA/LA. mild MVP. mild mitral annular calcification. mild to moderate pulmonary regurgitation. trivial pericardial effusion. ID -WBC stable, afebrile -Ceftriaxone per ID -UA positive for UTI, but urine cx negative and bld cx negative, sputum cx negative PROPHYLAXIS -dc SCDs -Eliquis -Protonix 40 PO FEN -No IVF -Replete potassium- 10meq iv x3 + 40 PO -Monitor Electrolytes and replete as needed -Dysphagia puree started 12/29/18, magic cup added LINES -L radial -RIJ central line removed 12/29/18 -Left A-line removed 12/27/18 -cintron changed 12/24/18 Dispo -Pt could be transferred to tele -full code Visit type - Emergency Visit Emergency Visit: Yes ED Registration Date: 12/18/18 Care time: The patient presented to the Emergency Department on the above date and was hospitalized for further evaluation of their emergent condition. - New Patient This patient is new to me today: No - Critical Care Critical Care patient: Yes Total Critical Care Time (in minutes): 35 Critical Care Statement: The care of this patient involved high complexity decision making to prevent further life threatening deterioration of the patient 's condition and/or to evaluate & treat vital organ system(s) failure or risk of failure. - Discharge Referral Referred to [facility] No
[2018-12-30] MEDS ORDERED: PANTOPRAZOLE 40 MG TABLET (FP) PO ONE (08:16)
[2018-12-30] MEDS: APIXABAN 5 MG TABLET PO SCH ×3 (08:29→21:28)
--- NOTE | 2018-12-30 08:31 | PN ---
Progress Note, Physician Chief Complaint: seen and examined Alert No CP or SOB TELE: controlled AF, rare PVCs Moving all 4 extremities No neuro deficits History of Present Illness: K+ slightly low - Current Medication List Current Medications: Active Medications Acetaminophen (Tylenol -) 650 mg PO Q6H PRN PRN Reason: PAIN LEVEL 4 - 6 Last Admin: 12/30/18 03:44 Dose: 650 mg Apixaban (Eliquis -) 5 mg PO BID [facility] Aspirin (Ecotrin -) 81 mg PO DAILY [facility] Benzocaine/Menthol (Cepacol Lozenge -) 1 each MM PRN PRN PRN Reason: SORE THROAT Chlorhexidine Gluconate (Hibiclens For Decolonization -) 1 applic TP HS [facility] Last Admin: 12/29/18 21:39 Dose: 1 applic Gabapentin (Neurontin -) 300 mg PO TID [facility] Last Admin: 12/30/18 06:20 Dose: 300 mg Heparin Sodium (Porcine) (Heparin -) 1,000 unit IVPUSH PRN PRN PRN Reason: Heparin Last Admin: 12/27/18 22:45 Dose: 1,000 unit Heparin Sodium (Porcine) (Heparin -) 5,000 unit IVPUSH PRN PRN PRN Reason: Heparin Ceftriaxone Sodium 2 gm/ (Dextrose) 100 mls @ 200 mls/hr IVPB DAILY [facility]; Protocol Last Admin: 12/29/18 09:46 Dose: 200 mls/hr Heparin Sodium/Dextrose (Heparin Infusion -) 25,000 units in 500 mls @ 18 mls/ hr IVPB TITR [facility]; Protocol Last Admin: 12/29/18 22:18 Dose: 900 units/hr, 18 mls/hr Potassium Chloride (Potassium Chloride 10 Meq Premix Ivpb -) 10 meq in 100 mls @ 100 mls/hr IVPB Q60M [facility] Stop: 12/30/18 10:59 Metoprolol Tartrate (Lopressor -) 25 mg NGT BID [facility] Last Admin: 12/29/18 21:39 Dose: 25 mg Morphine Sulfate (Morphine Sulfate) 4 mg IVPUSH Q3H PRN PRN Reason: PAIN LEVEL 7 - 10 Last Admin: 12/30/18 08:08 Dose: 4 mg Ondansetron HCl (Zofran Injection) 4 mg IVPUSH Q6H PRN PRN Reason: NAUSEA Oxycodone HCl (Roxicodone -) 10 mg PO Q6H PRN PRN Reason: PAIN LEVEL 6-10 Last Admin: 12/30/18 08:08 Dose: 10 mg - Objective Vital Signs: Vital Signs Temperature 98.5 F 12/30/18 06:00 Pulse Rate 87 12/30/18 06:00 Respiratory Rate 19 12/30/18 06:00 Blood Pressure 102/67 12/30/18 06:00 O2 Sat by Pulse Oximetry (%) 100 12/29/18 22:20 Constitutional: Yes: No Distress, Calm Cardiovascular: Yes: Pulse Irregular Respiratory: Yes: CTA Bilaterally (no rales or wheezing) Gastrointestinal: Yes: Soft Edema: Yes Edema: LLE: 1+, RLE: 1+ Neurological: Yes: Alert, Oriented Labs: CBC, BMP 12/30/18 05:30 12/30/18 05:30 INR, PTT INR 1.55 (0.83-1.09) H 12/29/18 05:30 Microbiology 12/24/18 05:30 Blood - Peripheral Venous Blood Culture - Final NO GROWTH AFTER 5 DAYS INCUBATION 12/24/18 03:00 Blood - Peripheral Venous Blood Culture - Final NO GROWTH AFTER 5 DAYS INCUBATION Laboratory Tests 12/30/18 12/30/18 05:30 05:30 WBC 12.7 H Hgb 9.0 L Plt Count 484 H Sodium 139 Potassium 3.3 L BUN 22 H Creatinine 0.8 - ....Imaging EKG: Image Reviewed Problem List - Problems (1) Back pain Code(s): M54.9 - DORSALGIA, UNSPECIFIED (2) Paroxysmal atrial fibrillation Code(s): I48.0 - PAROXYSMAL ATRIAL FIBRILLATION (3) CAD (coronary artery disease) Code(s): I25.10 - ATHSCL HEART DISEASE OF [place] CORONARY ARTERY W/O ANG PCTRS Qualifiers: Coronary Disease-Associated Artery/Lesion type: [place] artery [place] vs. transplanted heart: [place] heart Associated angina: without angina Qualified Code(s): I25.10 - Atherosclerotic heart disease of [place] coronary artery without angina pectoris (4) Hx of heart artery stent Code(s): Z95.5 - PRESENCE OF CORONARY ANGIOPLASTY IMPLANT AND GRAFT (5) HTN (hypertension) Code(s): I10 - ESSENTIAL (PRIMARY) HYPERTENSION Qualifiers: Hypertension type: essential hypertension Qualified Code(s): I10 - Essential (primary) hypertension (6) Pulmonary hypertension Code(s): I27.20 - PULMONARY HYPERTENSION, UNSPECIFIED (7) Anticoagulation management encounter Code(s): Z51.81 - ENCOUNTER FOR THERAPEUTIC DRUG LEVEL MONITORING; Z79.01 - METAL HANDLER (CURRENT) USE OF ANTICOAGULANTS Assessment/Plan IMP: 1. Intractable neck pain, cervical and lumbar disc disease POD #8 Removal of hardware from C2-C7, laminectomy C2-T1 with posterior fusion of C2-T1. removal of hardware from L3-S1(retained screw at Right S1) laminectomy of L1/L2 and L2/L3 posterior fusion of L1 thru S1, repair of durotomy and cage placment L2-L3 2. PHTN, chronic 3. CAD s/p PCI 4. Permanent AF 5. Acute on chronic diastolic CHF 6. Moderate MR 7. Post op fever: cultures negative. 8. Anemia REC: 1. Replete K+; start PO Lasix. 2. Blood cultures remain negative; ID following. WBC down. 3. H/H remains stable with no further drift or evidence of bleeding in last 48 hours. Continue to monitor daily H/H. 4. Transition to oral AC today. 6. Continue B-[place]ine for rate control. 8. ASA has been resumed (prior coronary PCI) 9. Will need rehab upon discharge. Will follow
[2018-12-30] MEDS: KCL 10 MEQ IVPB 10 MEQ/100 ML INFUS.BAG IVPB SCH ×3 (08:41→11:00)
[2018-12-30] MEDS: METOPROLOL TARTRATE 25 MG TABLET (FP) NGT SCH ×2 (09:19→21:28)
[2018-12-30] MEDS: CEFTRIAXONE 2 GM in DEXTROSE 5%-WATER 100 ML IVPB SCH (09:19)
[2018-12-30] MEDS ORDERED: ASPIRIN COATED 81 MG TABLET.EC PO SCH (10:00)
--- NOTE | 2018-12-30 11:34 | PN ---
Progress Note, Physician History of Present Illness: AWAKE, ALERT C/O BACK PAIN TEMPS REMAIN DOWN WBC SLIGHTLY ELEVATED C/S NOTED - Current Medication List Current Medications: Active Medications Acetaminophen (Tylenol -) 650 mg PO Q6H PRN PRN Reason: PAIN LEVEL 4 - 6 Last Admin: 12/30/18 03:44 Dose: 650 mg Apixaban (Eliquis -) 5 mg PO BID [facility] Last Admin: 12/30/18 09:19 Dose: Not Given Aspirin (Ecotrin -) 81 mg PO DAILY [facility] Last Admin: 12/30/18 09:16 Dose: 81 mg Benzocaine/Menthol (Cepacol Lozenge -) 1 each MM PRN PRN PRN Reason: SORE THROAT Gabapentin (Neurontin -) 300 mg PO TID [facility] Last Admin: 12/30/18 06:20 Dose: 300 mg Ceftriaxone Sodium 2 gm/ (Dextrose) 100 mls @ 200 mls/hr IVPB DAILY [facility]; Protocol Last Admin: 12/30/18 09:19 Dose: 200 mls/hr Metoprolol Tartrate (Lopressor -) 25 mg NGT BID [facility] Last Admin: 12/30/18 09:19 Dose: 25 mg Morphine Sulfate (Morphine Sulfate) 4 mg IVPUSH Q3H PRN PRN Reason: PAIN LEVEL 7 - 10 Last Admin: 12/30/18 08:08 Dose: 4 mg Ondansetron HCl (Zofran Injection) 4 mg IVPUSH Q6H PRN PRN Reason: NAUSEA Oxycodone HCl (Roxicodone -) 10 mg PO Q6H PRN PRN Reason: PAIN LEVEL 6-10 Last Admin: 12/30/18 08:08 Dose: 10 mg - Objective Vital Signs: Vital Signs Temperature 98.5 F 12/30/18 06:00 Pulse Rate 87 12/30/18 06:00 Respiratory Rate 19 12/30/18 06:00 Blood Pressure 102/67 12/30/18 06:00 O2 Sat by Pulse Oximetry (%) 100 12/30/18 07:00 Constitutional: Yes: No Distress Cardiovascular: Yes: Regular Rate and Rhythm, S1, S2 Respiratory: Yes: CTA Bilaterally Gastrointestinal: Yes: Normal Bowel Sounds, Soft Edema: Yes Labs: CBC, BMP 12/30/18 05:30 12/30/18 05:30 INR, PTT INR 1.55 (0.83-1.09) H 12/29/18 05:30 Assessment/Plan POD #8 POST OP FEVER RESOLVED LEUKOCYTOSIS CONTINUE CEFTRIAXONE DAY# 7 ANTIBIOTICS
--- NOTE | 2018-12-30 11:45 | PN ---
Teaching Attending Note Name of Resident: Judy Ga ATTENDING PHYSICIAN STATEMENT I saw and evaluated the patient. I reviewed the resident's note and discussed the case with the resident. I agree with the resident's findings and plan as documented. SUBJECTIVE: Pt seen and examined in the ICU. Remains extubated. Breathing continues to improve. c/o significant pain. OBJECTIVE: Vital Signs Period Temp Pulse Resp BP Sys/Dyson Pulse Ox Last 24 Hr 97.8 F-99.2 F 80-97 18-28 101-127/62-72 100-100 Intake & Output 12/27/18 12/28/18 12/29/18 12/30/18 23:59 23:59 23:59 23:59 Intake Total 1790 1620 956 326 Output Total 6800 6200 4800 400 Balance -5010 -4580 -3844 -74 Weight 102.194 kg 100.017 kg 88.451 kg 88.405 kg Gen: NAD in cervical collar Heart: RRR Lung: decreased breath sounds at the bases Abd: soft, nontender Ext: less edema CBC, BMP 12/30/18 05:30 12/30/18 05:30 Active Medications Acetaminophen (Tylenol -) 650 mg PO Q6H PRN PRN Reason: PAIN LEVEL 4 - 6 Last Admin: 12/30/18 03:44 Dose: 650 mg Apixaban (Eliquis -) 5 mg PO BID [facility] Last Admin: 12/30/18 09:19 Dose: Not Given Aspirin (Ecotrin -) 81 mg PO DAILY [facility] Last Admin: 12/30/18 09:16 Dose: 81 mg Benzocaine/Menthol (Cepacol Lozenge -) 1 each MM PRN PRN PRN Reason: SORE THROAT Gabapentin (Neurontin -) 300 mg PO TID [facility] Last Admin: 12/30/18 06:20 Dose: 300 mg Ceftriaxone Sodium 2 gm/ (Dextrose) 100 mls @ 200 mls/hr IVPB DAILY [facility]; Protocol Last Admin: 12/30/18 09:19 Dose: 200 mls/hr Metoprolol Tartrate (Lopressor -) 25 mg NGT BID [facility] Last Admin: 12/30/18 09:19 Dose: 25 mg Morphine Sulfate (Morphine Sulfate) 4 mg IVPUSH Q3H PRN PRN Reason: PAIN LEVEL 7 - 10 Last Admin: 12/30/18 08:08 Dose: 4 mg Ondansetron HCl (Zofran Injection) 4 mg IVPUSH Q6H PRN PRN Reason: NAUSEA Oxycodone HCl (Roxicodone -) 10 mg PO Q6H PRN PRN Reason: PAIN LEVEL 6-10 Last Admin: 12/30/18 08:08 Dose: 10 mg ASSESSMENT AND PLAN: s/p CHELE C2-T1/L3-S1/Laminectomy/L1-S1 Posterior Fusion/Cage Placement/Durotomy repair Acute Respiratory Failure Acute Blood Loss Anemia CAD Atrial Fibrillation Acute on Chronic Diastolic Heart Failure Volume Overload improving Pneumonia UTI COPD Rheumatoid Arthritis HTN Hyperlipidemia h/o Prostate Ca - lasix as needed - monitor urine output, creatinine - replete lytes - continue antibiotics - rate control - continue anticoagulation - aspiration precautions - DVT/GI prophylaxis - can monitor on telemetry
--- NOTE | 2018-12-30 13:43 | PN ---
Progress Note, LITHOGRAPHER HELPER - Note Progress Note: Selected Entries 12/29/18 12/29/18 12/29/18 02:00 06:00 12:00 Breakfast Supper Temperature 99.0 F 99 F 99.2 F 12/29/18 12/29/18 12/29/18 18:00 20:00 21:08 Breakfast Supper 50% Temperature 97.8 F 98.7 F 12/29/18 12/30/18 12/30/18 22:00 02:00 04:00 Breakfast Supper Temperature 98.5 F 98.7 F 98.5 F 12/30/18 12/30/18 06:00 07:00 Breakfast 50% Supper Temperature 98.5 F Laboratory Tests 12/29/18 12/30/18 05:30 05:30 WBC 12.9 H 12.7 H Doing well with diet. c/o sore throat. Occasional cough. Overtly tolerated ice chips. Occasional brief throat clear. Continue puree/nectar. Add Magic cup.
[2018-12-30] MEDS ORDERED: morphine SULFATE 4 MG/ML VIAL ONE (14:57)
[2018-12-30] MEDS ORDERED: MORPHINE SULFATE 2 MG/ML VIAL IVPUSH ONE (15:00)
[2018-12-30 19:08] LABS: HEMATOCRIT 26.9 % (35.4-49); HEMOGLOBIN 9.2 GM/dL (11.7-16.9); MCH 33.1 pg (25.7-33.7); MCHC 34.3 g/dl (32.0-35.9); MEAN CELL VOLUME 96.5 fl (80-96); MEAN PLT VOLUME 7.2 fl (7.5-11.1); PLATELET COUNT 541 K/MM3 (134-434); RBC 2.79 M/mm3 (4.00-5.60); RDW 15.9 % (11.9-15.9)
[2018-12-30] MEDS ORDERED: BENZOCAINE/MENTH/CETYLPYRD CL 1 EACH LOZENGE MM PRN (20:47)
[2018-12-30] MEDS ORDERED: ONDANSETRON 4 MG/2 ML VIAL IVPUSH PRN (20:47)
--- NOTE | 2018-12-30 22:33 | PN ---
Progress Note, Physician - Current Medication List Current Medications: Active Medications Acetaminophen (Tylenol -) 650 mg PO Q6H PRN PRN Reason: PAIN LEVEL 1-3 Last Admin: 12/30/18 21:29 Dose: 650 mg Apixaban (Eliquis -) 5 mg PO BID [facility] Last Admin: 12/30/18 21:28 Dose: 5 mg Aspirin (Ecotrin -) 81 mg PO DAILY [facility] Benzocaine/Menthol (Cepacol Lozenge -) 1 each MM PRN PRN PRN Reason: SORE THROAT Furosemide (Lasix -) 40 mg PO BID@0600,1400 [facility] Gabapentin (Neurontin -) 300 mg PO TID [facility] Last Admin: 12/30/18 21:28 Dose: 300 mg Ceftriaxone Sodium 2 gm/ (Dextrose) 100 mls @ 200 mls/hr IVPB DAILY [facility]; Protocol Metoprolol Tartrate (Lopressor -) 25 mg NGT BID [facility] Last Admin: 12/30/18 21:28 Dose: 25 mg Morphine Sulfate (Morphine Sulfate) 4 mg IVPUSH Q3H PRN PRN Reason: PAIN LEVEL 7 - 10 Ondansetron HCl (Zofran Injection) 4 mg IVPUSH Q6H PRN PRN Reason: NAUSEA Oxycodone HCl (Roxicodone -) 10 mg PO Q6H PRN PRN Reason: PAIN LEVEL 4-6 Last Admin: 12/30/18 21:28 Dose: 10 mg - Objective Vital Signs: Vital Signs Temperature 98.4 F 12/30/18 20:00 Pulse Rate 92 H 12/30/18 20:00 Respiratory Rate 18 12/30/18 20:00 Blood Pressure 110/60 12/30/18 20:00 O2 Sat by Pulse Oximetry (%) 100 12/30/18 20:39 Labs: CBC, BMP 12/30/18 18:00 12/30/18 05:30 INR, PTT INR 1.55 (0.83-1.09) H 12/29/18 05:30 Problem List - Problems (1) Back pain Code(s): M54.9 - DORSALGIA, UNSPECIFIED (2) Acute on chronic diastolic (congestive) heart failure Code(s): I50.33 - ACUTE ON CHRONIC DIASTOLIC (CONGESTIVE) HEART FAILURE (3) Afib Code(s): I48.91 - UNSPECIFIED ATRIAL FIBRILLATION (4) Anemia Code(s): D64.9 - ANEMIA, UNSPECIFIED (5) CAD (coronary artery disease) Code(s): I25.10 - ATHSCL HEART DISEASE OF [place] CORONARY ARTERY W/O ANG PCTRS Qualifiers: Coronary Disease-Associated Artery/Lesion type: [place] artery [place] vs. transplanted heart: [place] heart Associated angina: without angina Qualified Code(s): I25.10 - Atherosclerotic heart disease of [place] coronary artery without angina pectoris (6) GERD (gastroesophageal reflux disease) Code(s): K21.9 - GASTRO-ESOPHAGEAL REFLUX DISEASE WITHOUT ESOPHAGITIS (7) HLD (hyperlipidemia) Code(s): E78.5 - HYPERLIPIDEMIA, UNSPECIFIED (8) HTN (hypertension) Code(s): I10 - ESSENTIAL (PRIMARY) HYPERTENSION Qualifiers: Hypertension type: essential hypertension Qualified Code(s): I10 - Essential (primary) hypertension (9) Hx of heart artery stent Code(s): Z95.5 - PRESENCE OF CORONARY ANGIOPLASTY IMPLANT AND GRAFT (10) COPD (chronic obstructive pulmonary disease) Code(s): J44.9 - CHRONIC OBSTRUCTIVE PULMONARY DISEASE, UNSPECIFIED
[2018-12-31] MEDS: morphine SULFATE 4 MG/ML VIAL IVPUSH PRN ×7 (02:15→22:53)
[2018-12-31] MEDS: FUROSEMIDE 40 MG TABLET (FP) PO SCH (05:52)
[2018-12-31] MEDS: GABAPENTIN 300 MG CAPSULE (FP) PO SCH ×3 (05:52→21:45)
[2018-12-31 07:07] LABS: HEMATOCRIT 26.2 % (35.4-49); MCH 32.5 pg (25.7-33.7); MCHC 34.2 g/dl (32.0-35.9); MEAN PLT VOLUME 6.8 fl (7.5-11.1); PLATELET COUNT 570 K/MM3 (134-434); RBC 2.76 M/mm3 (4.00-5.60); RDW 15.5 % (11.9-15.9); WHITE BLOOD COUNT 13.7 K/mm3 (4.0-10.0)
[2018-12-31 07:31] LABS: ALBUMIN 2.4 g/dl (3.4-5.0); ALK PHOS 118 U/L (45-117); ANION GAP 6 MMOL/L (8-16); BILIRUBIN,TOTAL 0.4 mg/dL (0.2-1); BLOOD UREA NITROGEN 25 mg/dL (7-18); CALCIUM 8.6 mg/dL (8.5-10.1); CHLORIDE 97 mmol/L (98-107); CO2 34 mmol/L (21-32); GLUCOSE,RANDOM 94 mg/dL (74-106); MAGNESIUM 1.8 mg/dL (1.8-2.4); PHOSPHOROUS 3.2 mg/dL (2.5-4.9); POTASSIUM 3.9 mmol/L (3.5-5.1); SGOT/AST 37 U/L (15-37); SGPT/ALT 41 U/L (13-61); SODIUM 138 mmol/L (136-145)
--- NOTE | 2018-12-31 08:00 | PN ---
Progress Note (short form) - Note Progress Note: 73yo M s/p C2-T1 PCDF and L1-S1 PLIF, seen and examined at bedside. Pt was transfered to the floor yesterday. Pt continues to complain of a lot of lower back pain, despite starting pain med regiment recommended by pain management. Pt states that he did get up at bedside with PT yesterday, but did not walk, due to pain. Pt unable to urinate so cintron was reinserted, with 500cc urine removed. Pt LLE weakness at baseline. No new weakness or numbness. Pt denies incontinence. Last Vital Signs Temp Pulse Resp BP Pulse Ox 97.8 F 86 20 100/58 L 100 12/31/18 05:49 12/31/18 05:49 12/31/18 05:49 12/31/18 05:49 12/30/18 20:39 CBC, BMP 12/31/18 06:00 PE: Gen: A&O x 3 Resp: breathing comfortably Back: dressing clean with no erythema or discharge Ext: LLE show 3/5 strength, RLE 5/5 strength, no numbness Problem List - Problems (1) Back pain Assessment/Plan: Plan -continue pain control, emphasize importance of OOB/ambulate with PT -consider added flomax if cardiology ok's -consider follow up with Dr. Pereira for more pain recs -dvt ppx -will follow Code(s): M54.9 - DORSALGIA, UNSPECIFIED
[2018-12-31] MEDS: ACETAMINOPHEN 325 MG TABLET (FP) PO PRN ×2 (08:09→14:03)
[2018-12-31] MEDS: oxyCODONE HCL 5 MG TABLET PO PRN ×2 (08:10→14:03)
--- NOTE | 2018-12-31 08:57 | PN ---
Progress Note, Physician Chief Complaint: Seen and examined on Tele AF 80-90 average rate, no pauses Denies CP, SOB, Palpitations. CXR has shown sig improvement. BP running relatively low, afebrile. - Current Medication List Current Medications: Active Medications Acetaminophen (Tylenol -) 650 mg PO Q6H PRN PRN Reason: PAIN LEVEL 1-3 Last Admin: 12/31/18 08:09 Dose: 650 mg Apixaban (Eliquis -) 5 mg PO BID [facility] Last Admin: 12/30/18 21:28 Dose: 5 mg Aspirin (Ecotrin -) 81 mg PO DAILY [facility] Benzocaine/Menthol (Cepacol Lozenge -) 1 each MM PRN PRN PRN Reason: SORE THROAT Furosemide (Lasix -) 40 mg PO BID@0600,1400 [facility] Last Admin: 12/31/18 05:52 Dose: 40 mg Gabapentin (Neurontin -) 300 mg PO TID [facility] Last Admin: 12/31/18 05:52 Dose: 300 mg Ceftriaxone Sodium 2 gm/ (Dextrose) 100 mls @ 200 mls/hr IVPB DAILY [facility]; Protocol Metoprolol Tartrate (Lopressor -) 25 mg NGT BID [facility] Last Admin: 12/30/18 21:28 Dose: 25 mg Morphine Sulfate (Morphine Sulfate) 4 mg IVPUSH Q3H PRN PRN Reason: PAIN LEVEL 7 - 10 Last Admin: 12/31/18 05:52 Dose: 4 mg Ondansetron HCl (Zofran Injection) 4 mg IVPUSH Q6H PRN PRN Reason: NAUSEA Oxycodone HCl (Roxicodone -) 10 mg PO Q6H PRN PRN Reason: PAIN LEVEL 4-6 Last Admin: 12/31/18 08:10 Dose: 10 mg - Objective Vital Signs: Vital Signs Temperature 97.8 F 12/31/18 05:49 Pulse Rate 86 12/31/18 05:49 Respiratory Rate 20 12/31/18 05:49 Blood Pressure 100/58 L 12/31/18 05:49 O2 Sat by Pulse Oximetry (%) 100 12/30/18 20:39 Constitutional: Yes: No Distress Cardiovascular: Yes: Pulse Irregular Respiratory: Yes: Rhonchi Gastrointestinal: Yes: Soft Edema: Yes Edema: LLE: 1+ (ankle), RLE: 1+ (ankle) Neurological: Yes: Alert, Oriented, Other (Moving arms, hands, legs.) Labs: CBC, BMP 12/31/18 06:30 12/31/18 06:00 INR, PTT INR 1.55 (0.83-1.09) H 12/29/18 05:30 Microbiology 12/24/18 05:30 Blood - Peripheral Venous Blood Culture - Final NO GROWTH AFTER 5 DAYS INCUBATION 12/24/18 03:00 Blood - Peripheral Venous Blood Culture - Final NO GROWTH AFTER 5 DAYS INCUBATION Laboratory Tests 12/31/18 12/31/18 06:00 06:30 WBC 13.7 H Hgb 9.0 L Plt Count 570 H Sodium 138 Potassium 3.9 BUN 25 H Creatinine 1.0 - ....Imaging EKG: Image Reviewed Problem List - Problems (1) Back pain Code(s): M54.9 - DORSALGIA, UNSPECIFIED (2) Paroxysmal atrial fibrillation Code(s): I48.0 - PAROXYSMAL ATRIAL FIBRILLATION (3) CAD (coronary artery disease) Code(s): I25.10 - ATHSCL HEART DISEASE OF [place] CORONARY ARTERY W/O ANG PCTRS Qualifiers: Coronary Disease-Associated Artery/Lesion type: [place] artery [place] vs. transplanted heart: [place] heart Associated angina: without angina Qualified Code(s): I25.10 - Atherosclerotic heart disease of [place] coronary artery without angina pectoris (4) Hx of heart artery stent Code(s): Z95.5 - PRESENCE OF CORONARY ANGIOPLASTY IMPLANT AND GRAFT (5) HTN (hypertension) Code(s): I10 - ESSENTIAL (PRIMARY) HYPERTENSION Qualifiers: Hypertension type: essential hypertension Qualified Code(s): I10 - Essential (primary) hypertension (6) Pulmonary hypertension Code(s): I27.20 - PULMONARY HYPERTENSION, UNSPECIFIED (7) Anticoagulation management encounter Code(s): Z51.81 - ENCOUNTER FOR THERAPEUTIC DRUG LEVEL MONITORING; Z79.01 - RETIREMENT (CURRENT) USE OF ANTICOAGULANTS Assessment/Plan IMP: 1. Intractable neck pain, cervical and lumbar disc disease POD #9 Removal of hardware from C2-C7, laminectomy C2-T1 with posterior fusion of C2-T1. removal of hardware from L3-S1(retained screw at Right S1) laminectomy of L1/L2 and L2/L3 posterior fusion of L1 thru S1, repair of durotomy and cage placment L2-L3 2. PHTN, chronic 3. CAD s/p PCI 4. Permanent AF 5. Acute on chronic diastolic CHF 6. Moderate MR 7. Post op fever: cultures negative. 8. Anemia REC: 1. Hold further Lasix as BUN rising and BP relatively low. Encourage PO hydration. 2. Blood cultures remain negative; ID following. WBC down. 3. H/H remains stable with no further drift or evidence of bleeding in last 48 hours. Continue to monitor daily H/H daily. 4. Transitioned back to oral AC. 6. Continue B-[place]ine for rate control. 8. ASA has been resumed (prior coronary PCI) 9. Will need rehab upon discharge.
[2018-12-31] MEDS: ASPIRIN COATED 81 MG TABLET.EC PO SCH (09:55)
[2018-12-31] MEDS: METOPROLOL TARTRATE 25 MG TABLET (FP) NGT SCH ×2 (09:55→21:45)
[2018-12-31] MEDS: APIXABAN 5 MG TABLET PO SCH ×2 (09:55→21:45)
[2018-12-31] MEDS: CEFTRIAXONE 2 GM in DEXTROSE 5%-WATER 100 ML IVPB SCH ×2 (09:56→12:48)
--- NOTE | 2018-12-31 12:15 | PN ---
Progress Note, Physician Chief Complaint: PULMONARY AWAKE,FEELING BETTER,LESS DYSPNEIC,ON NASAL CANNULA - Current Medication List Current Medications: Active Medications Acetaminophen (Tylenol -) 650 mg PO Q6H PRN PRN Reason: PAIN LEVEL 1-3 Last Admin: 12/31/18 08:09 Dose: 650 mg Apixaban (Eliquis -) 5 mg PO BID [facility] Last Admin: 12/31/18 09:55 Dose: 5 mg Aspirin (Ecotrin -) 81 mg PO DAILY [facility] Last Admin: 12/31/18 09:55 Dose: 81 mg Benzocaine/Menthol (Cepacol Lozenge -) 1 each MM PRN PRN PRN Reason: SORE THROAT Furosemide (Lasix -) 40 mg PO BID@0600,1400 [facility] Last Admin: 12/31/18 05:52 Dose: 40 mg Gabapentin (Neurontin -) 300 mg PO TID [facility] Last Admin: 12/31/18 05:52 Dose: 300 mg Ceftriaxone Sodium 2 gm/ (Dextrose) 100 mls @ 200 mls/hr IVPB DAILY [facility]; Protocol Last Admin: 12/31/18 09:56 Dose: Not Given Metoprolol Tartrate (Lopressor -) 25 mg NGT BID [facility] Last Admin: 12/31/18 09:55 Dose: 25 mg Morphine Sulfate (Morphine Sulfate) 4 mg IVPUSH Q3H PRN PRN Reason: PAIN LEVEL 7 - 10 Last Admin: 12/31/18 09:46 Dose: 4 mg Ondansetron HCl (Zofran Injection) 4 mg IVPUSH Q6H PRN PRN Reason: NAUSEA Oxycodone HCl (Roxicodone -) 10 mg PO Q6H PRN PRN Reason: PAIN LEVEL 4-6 Last Admin: 12/31/18 08:10 Dose: 10 mg - Objective Vital Signs: Vital Signs Temperature 98.6 F 12/31/18 10:00 Pulse Rate 86 12/31/18 10:00 Respiratory Rate 22 H 12/31/18 10:00 Blood Pressure 101/52 L 12/31/18 10:00 O2 Sat by Pulse Oximetry (%) 100 12/31/18 09:00 Constitutional: Yes: Well Nourished, Calm Eyes: Yes: WNL HENT: Yes: WNL Neck: Yes: WNL Cardiovascular: Yes: Pulse Irregular, S1, S2 Respiratory: Yes: Diminished Gastrointestinal: Yes: Normal Bowel Sounds, Soft Extremities: Yes: WNL Edema: Yes Labs: CBC, BMP 12/31/18 06:30 12/31/18 06:00 INR, PTT INR 1.55 (0.83-1.09) H 12/29/18 05:30 Problem List - Problems (1) Respiratory failure Code(s): J96.90 - RESPIRATORY FAILURE, UNSP, UNSP W HYPOXIA OR HYPERCAPNIA (2) Afib Code(s): I48.91 - UNSPECIFIED ATRIAL FIBRILLATION (3) Cervical myelopathy Code(s): G95.9 - DISEASE OF [place], UNSPECIFIED (4) Pulmonary hypertension Code(s): I27.20 - PULMONARY HYPERTENSION, UNSPECIFIED (5) Acute on chronic diastolic (congestive) heart failure Code(s): I50.33 - ACUTE ON CHRONIC DIASTOLIC (CONGESTIVE) HEART FAILURE (6) Acute renal failure Code(s): N17.9 - ACUTE KIDNEY FAILURE, UNSPECIFIED (7) Anemia Code(s): D64.9 - ANEMIA, UNSPECIFIED (8) CAD (coronary artery disease) Code(s): I25.10 - ATHSCL HEART DISEASE OF [place] CORONARY ARTERY W/O ANG PCTRS Qualifiers: Coronary Disease-Associated Artery/Lesion type: [place] artery [place] vs. transplanted heart: [place] heart Associated angina: without angina Qualified Code(s): I25.10 - Atherosclerotic heart disease of [place] coronary artery without angina pectoris (9) COPD (chronic obstructive pulmonary disease) Code(s): J44.9 - CHRONIC OBSTRUCTIVE PULMONARY DISEASE, UNSPECIFIED (10) HLD (hyperlipidemia) Code(s): E78.5 - HYPERLIPIDEMIA, UNSPECIFIED (11) HTN (hypertension) Code(s): I10 - ESSENTIAL (PRIMARY) HYPERTENSION Qualifiers: Hypertension type: essential hypertension Qualified Code(s): I10 - Essential (primary) hypertension (12) Hx of heart artery stent Code(s): Z95.5 - PRESENCE OF CORONARY ANGIOPLASTY IMPLANT AND GRAFT Assessment/Plan ASSESSMENT AND PLAN: s/p CHELE C2-T1/L3-S1/Laminectomy/L1-S1 Posterior Fusion/Cage Placement/Durotomy repair S/P Acute Respiratory Failure Acute Blood Loss Anemia CAD Atrial Fibrillation Acute on Chronic Diastolic Heart Failure Volume Overload improving Pneumonia UTI COPD Rheumatoid Arthritis HTN Hyperlipidemia h/o Prostate Ca - lasix as needed - monitor urine output, creatinine - monitor lytes - antibiotics - rate control - continue anticoagulation - aspiration precautions - DVT/GI prophylaxis DR MUNOZ
[2018-12-31] MEDS ORDERED: DEXTROSE 5%-WATER 100 ML IVPB ONE (12:22)
--- NOTE | 2018-12-31 14:45 | PN ---
Progress Note, CLINICAL ASSESSMENT MANAGER - Note Progress Note: Selected Entries 12/30/18 12/30/18 12/30/18 02:00 04:00 06:00 Breakfast Lunch Temperature 98.7 F 98.5 F 98.5 F 12/30/18 12/30/18 12/30/18 07:00 10:00 14:00 Breakfast 50% Lunch Temperature 98.6 F 98.7 F 12/30/18 12/30/18 12/30/18 15:13 20:00 22:00 Breakfast Lunch 25% Temperature 98.4 F 98.8 F 12/31/18 12/31/18 12/31/18 02:00 05:49 10:00 Breakfast Lunch Temperature 97.5 F L 97.8 F 98.6 F 12/31/18 12:01 Breakfast 50% Lunch Temperature Laboratory Tests 12/29/18 12/30/18 12/31/18 05:30 05:30 06:30 WBC 12.9 H 12.7 H 13.7 H Looking better. Overtly tolerating diet. Pt Needs intensive rehab. Just informed that he was accepted at [facility]. Would benefit from FEESST exam at [facility]. Continue puree/nectar thick for now.
--- NOTE | 2018-12-31 23:51 | PN ---
Progress Note, Physician History of Present Illness: No new changes - Current Medication List Current Medications: Active Medications Acetaminophen (Tylenol -) 650 mg PO Q6H PRN PRN Reason: PAIN LEVEL 1-3 Last Admin: 12/31/18 14:03 Dose: 650 mg Apixaban (Eliquis -) 5 mg PO BID [facility] Last Admin: 12/31/18 21:45 Dose: 5 mg Aspirin (Ecotrin -) 81 mg PO DAILY [facility] Last Admin: 12/31/18 09:55 Dose: 81 mg Benzocaine/Menthol (Cepacol Lozenge -) 1 each MM PRN PRN PRN Reason: SORE THROAT Furosemide (Lasix -) 40 mg PO BID@0600,1400 [facility] Last Admin: 12/31/18 05:52 Dose: 40 mg Gabapentin (Neurontin -) 300 mg PO TID [facility] Last Admin: 12/31/18 21:45 Dose: 300 mg Ceftriaxone Sodium 2 gm/ (Dextrose) 100 mls @ 200 mls/hr IVPB DAILY [facility]; Protocol Last Admin: 12/31/18 12:48 Dose: 200 mls/hr Metoprolol Tartrate (Lopressor -) 25 mg NGT BID [facility] Last Admin: 12/31/18 21:45 Dose: 25 mg Morphine Sulfate (Morphine Sulfate) 4 mg IVPUSH Q3H PRN PRN Reason: PAIN LEVEL 7 - 10 Last Admin: 12/31/18 22:53 Dose: 4 mg Ondansetron HCl (Zofran Injection) 4 mg IVPUSH Q6H PRN PRN Reason: NAUSEA Oxycodone HCl (Roxicodone -) 10 mg PO Q6H PRN PRN Reason: PAIN LEVEL 4-6 Last Admin: 12/31/18 14:03 Dose: 10 mg - Objective Vital Signs: Vital Signs Temperature 98.8 F 12/31/18 21:00 Pulse Rate 108 H 12/31/18 21:00 Respiratory Rate 22 H 12/31/18 21:00 Blood Pressure 116/70 12/31/18 21:00 O2 Sat by Pulse Oximetry (%) 100 12/31/18 09:00 Neck: Yes: WNL, Supple Cardiovascular: Yes: Pulse Irregular Respiratory: Yes: WNL, Regular, CTA Bilaterally Gastrointestinal: Yes: WNL, Normal Bowel Sounds, Soft Edema: LLE: Trace, RLE: Trace Labs: CBC, BMP 12/31/18 06:30 12/31/18 06:00 INR, PTT INR 1.55 (0.83-1.09) H 12/29/18 05:30 Problem List - Problems (1) Back pain Assessment/Plan: 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, laminectomy C2-T1 with posterior fusion of C-T1, removal of hardware from L3-S1 (retained screw at right S1) laminectomy of L1/L2 and L2/L3 posterior fusion of L1 through S1, repair of durotomy and cage placement L2-L3 Cont IV ceftriaxone as per ID Cultures remain negative WBC sightly elevated Check WBC in am DC planning to STR Urine culture (+) for yeast Code(s): M54.9 - DORSALGIA, UNSPECIFIED (2) Acute on chronic diastolic (congestive) heart failure Assessment/Plan: Cont PO lasix Code(s): I50.33 - ACUTE ON CHRONIC DIASTOLIC (CONGESTIVE) HEART FAILURE (3) Afib Assessment/Plan: Cont eliquis Monitor H/H Heart rate controlled Code(s): I48.91 - UNSPECIFIED ATRIAL FIBRILLATION (4) Anemia Assessment/Plan: Acute blood loss anemia S/P blood transfusions Monitor H/H Code(s): D64.9 - ANEMIA, UNSPECIFIED (5) CAD (coronary artery disease) Assessment/Plan: Plavix was stopped Cont asa Pt had been on it for a yr s/p stent placement Code(s): I25.10 - ATHSCL HEART DISEASE OF [place] CORONARY ARTERY W/O ANG PCTRS Qualifiers: Coronary Disease-Associated Artery/Lesion type: [place] artery [place] vs. transplanted heart: [place] heart Associated angina: without angina Qualified Code(s): I25.10 - Atherosclerotic heart disease of [place] coronary artery without angina pectoris (6) GERD (gastroesophageal reflux disease) Code(s): K21.9 - GASTRO-ESOPHAGEAL REFLUX DISEASE WITHOUT ESOPHAGITIS (7) HLD (hyperlipidemia) Code(s): E78.5 - HYPERLIPIDEMIA, UNSPECIFIED (8) HTN (hypertension) Code(s): I10 - ESSENTIAL (PRIMARY) HYPERTENSION Qualifiers: Hypertension type: essential hypertension Qualified Code(s): I10 - Essential (primary) hypertension (9) Hx of heart artery stent Code(s): Z95.5 - PRESENCE OF CORONARY ANGIOPLASTY IMPLANT AND GRAFT (10) COPD (chronic obstructive pulmonary disease) Code(s): J44.9 - CHRONIC OBSTRUCTIVE PULMONARY DISEASE, UNSPECIFIED
[2019-01-01] MEDS: morphine SULFATE 4 MG/ML VIAL IVPUSH PRN ×5 (02:12→23:35)
[2019-01-01] MEDS: GABAPENTIN 300 MG CAPSULE (FP) PO SCH ×3 (05:39→20:59)
[2019-01-01 06:35] LABS: HEMATOCRIT 24.9 % (35.4-49); HEMOGLOBIN 8.5 GM/dL (11.7-16.9); MCH 32.6 pg (25.7-33.7); MEAN CELL VOLUME 95.7 fl (80-96); MEAN PLT VOLUME 6.9 fl (7.5-11.1); PLATELET COUNT 635 K/MM3 (134-434); RDW 15.4 % (11.9-15.9); WHITE BLOOD COUNT 15.9 K/mm3 (4.0-10.0)
--- NOTE | 2019-01-01 08:20 | PN ---
Progress Note (short form) - Note Progress Note: Surgery POD #10 C2-T1 PCDF and L1-S1 PLIF, seen and examined at bedside. Pt continues to complain of a lot of lower back pain and has had limited PT 2/2 pain blocking. He still has a cintron. He is tolerating his diet and denies any CP , SOB, N/V, Fever or chills. Vital Signs Temp 97.8 F 01/01/19 05:35 Pulse 85 01/01/19 05:35 Resp 21 H 01/01/19 07:57 BP 104/60 01/01/19 05:35 Pulse Ox 100 01/01/19 07:57 Intake & Output 12/31/18 12/31/18 01/01/19 11:59 23:59 11:59 Intake Total 600 Output Total 500 600 Balance -500 0 Intake: Oral 600 Output: Urine 500 600 Cintron 500 600 Other: Voiding Method Incontinent Indwelling Catheter Indwelling Catheter CBC, BMP 01/01/19 05:30 12/31/18 06:00 PE: Gen: A&O x 3, NAD Resp: unlabored resp on 2L NC B/L UE: 5/5 nursery manager strength Spine neck and lumbar: dressings c/d/i with surrounding tissue intact and no tracking erythema or evidence of collection or discharge Ext: LLE show 4/5 dorsi/plantar flexion, RLE Charcot deformity with 3/5 strength on Dorsi/plantar flexion LE Compartments soft, supple and non-tender to palpation. Problem List - Problems (1) S/P lumbar fusion Assessment/Plan: POD #10 continues to improve will need aggressive PT moving forward 1) OOB with PT, up to chair for meals. 2) DVT prophylaxis per cardiology 3) Encourage daily IS 4) Pain control per pain mngt 5) c-collar and TLSO brace as ordered 6) D/c planning to rehab Evaluation and plan discussed with Dr Taylor Code(s): Z98.1 - ARTHRODESIS STATUS
[2019-01-01] MEDS ORDERED: DEXTROSE 5%-WATER 100 ML IVPB ONE (08:41)
[2019-01-01] MEDS: CEFTRIAXONE 2 GM in DEXTROSE 5%-WATER 100 ML IVPB SCH (09:13)
[2019-01-01] MEDS: ASPIRIN COATED 81 MG TABLET.EC PO SCH (09:15)
[2019-01-01] MEDS: oxyCODONE HCL 5 MG TABLET PO PRN ×2 (09:15→20:58)
[2019-01-01] MEDS: METOPROLOL TARTRATE 25 MG TABLET (FP) NGT SCH ×2 (09:15→21:00)
[2019-01-01] MEDS: ACETAMINOPHEN 325 MG TABLET (FP) PO PRN ×2 (09:17→20:57)
[2019-01-01] MEDS: APIXABAN 5 MG TABLET PO SCH ×2 (09:19→20:59)
--- NOTE | 2019-01-01 09:36 | PN ---
Progress Note, Physician Chief Complaint: seen and examined. No CP or SOB TELE: Controlled AF - Current Medication List Current Medications: Active Medications Acetaminophen (Tylenol -) 650 mg PO Q6H PRN PRN Reason: PAIN LEVEL 1-3 Last Admin: 01/01/19 09:17 Dose: 650 mg Apixaban (Eliquis -) 5 mg PO BID [facility] Last Admin: 01/01/19 09:19 Dose: 5 mg Aspirin (Ecotrin -) 81 mg PO DAILY [facility] Last Admin: 01/01/19 09:15 Dose: 81 mg Benzocaine/Menthol (Cepacol Lozenge -) 1 each MM PRN PRN PRN Reason: SORE THROAT Furosemide (Lasix -) 40 mg PO BID@0600,1400 [facility] Last Admin: 12/31/18 05:52 Dose: 40 mg Gabapentin (Neurontin -) 300 mg PO TID [facility] Last Admin: 01/01/19 05:39 Dose: 300 mg Ceftriaxone Sodium 2 gm/ (Dextrose) 100 mls @ 200 mls/hr IVPB DAILY [facility]; Protocol Last Admin: 01/01/19 09:13 Dose: 200 mls/hr Metoprolol Tartrate (Lopressor -) 25 mg NGT BID [facility] Last Admin: 01/01/19 09:15 Dose: 25 mg Morphine Sulfate (Morphine Sulfate) 4 mg IVPUSH Q3H PRN PRN Reason: PAIN LEVEL 7 - 10 Last Admin: 01/01/19 09:08 Dose: 4 mg Ondansetron HCl (Zofran Injection) 4 mg IVPUSH Q6H PRN PRN Reason: NAUSEA Oxycodone HCl (Roxicodone -) 10 mg PO Q6H PRN PRN Reason: PAIN LEVEL 4-6 Last Admin: 01/01/19 09:15 Dose: 10 mg - Objective Vital Signs: Vital Signs Temperature 98.0 F 01/01/19 08:49 Pulse Rate 86 01/01/19 08:49 Respiratory Rate 20 01/01/19 08:49 Blood Pressure 114/61 01/01/19 08:49 O2 Sat by Pulse Oximetry (%) 100 01/01/19 07:57 Constitutional: Yes: No Distress Cardiovascular: Yes: Pulse Irregular Respiratory: Yes: Rhonchi (B/l rhonchi and rales at left base today) Gastrointestinal: Yes: Soft Edema: No (venodynes in place) Neurological: Yes: Alert, Oriented Labs: CBC, BMP 01/01/19 05:30 12/31/18 06:00 INR, PTT INR 1.55 (0.83-1.09) H 12/29/18 05:30 Laboratory Tests 12/31/18 01/01/19 06:00 05:30 WBC 15.9 H Hgb 8.5 L Hct 24.9 L Plt Count 635 H Sodium 138 Potassium 3.9 BUN 25 H Creatinine 1.0 Magnesium 1.8 Total Bilirubin 0.4 ALT 41 - ....Imaging EKG: Image Reviewed Problem List - Problems (1) Back pain Code(s): M54.9 - DORSALGIA, UNSPECIFIED (2) Paroxysmal atrial fibrillation Code(s): I48.0 - PAROXYSMAL ATRIAL FIBRILLATION (3) CAD (coronary artery disease) Code(s): I25.10 - ATHSCL HEART DISEASE OF [place] CORONARY ARTERY W/O ANG PCTRS Qualifiers: Coronary Disease-Associated Artery/Lesion type: [place] artery [place] vs. transplanted heart: [place] heart Associated angina: without angina Qualified Code(s): I25.10 - Atherosclerotic heart disease of [place] coronary artery without angina pectoris (4) Hx of heart artery stent Code(s): Z95.5 - PRESENCE OF CORONARY ANGIOPLASTY IMPLANT AND GRAFT (5) HTN (hypertension) Code(s): I10 - ESSENTIAL (PRIMARY) HYPERTENSION Qualifiers: Hypertension type: essential hypertension Qualified Code(s): I10 - Essential (primary) hypertension (6) Pulmonary hypertension Code(s): I27.20 - PULMONARY HYPERTENSION, UNSPECIFIED (7) Anticoagulation management encounter Code(s): Z51.81 - ENCOUNTER FOR THERAPEUTIC DRUG LEVEL MONITORING; Z79.01 - SHELTER (CURRENT) USE OF ANTICOAGULANTS Assessment/Plan IMP: 1. Intractable neck pain, cervical and lumbar disc disease POD #9 Removal of hardware from C2-C7, laminectomy C2-T1 with posterior fusion of C2-T1. removal of hardware from L3-S1(retained screw at Right S1) laminectomy of L1/L2 and L2/L3 posterior fusion of L1 thru S1, repair of durotomy and cage placment L2-L3 2. PHTN, chronic 3. CAD s/p PCI 4. Permanent AF 5. Acute on chronic diastolic CHF 6. Moderate MR 7. Post op fever: cultures negative. 8. Anemia REC: 1. Repeat CXR, diurese PRN. Increased rhonchi on lung exam today w/ right basilar rales , ? atelectasis? 2. Blood cultures remain negative; ID following. WBC down. 3. H/H remains stable with no further drift or evidence of bleeding in last 48 hours. Continue to monitor daily H/H daily. 4. Transitioned back to oral AC. 6. Continue [place] for rate control. 8. ASA has been resumed (prior coronary PCI) 9. Will need rehab upon discharge.
[2019-01-01 11:41] LABS: ANION GAP 4 MMOL/L (8-16); BLOOD UREA NITROGEN 33 mg/dL (7-18); CALCIUM 8.4 mg/dL (8.5-10.1); CHLORIDE 98 mmol/L (98-107); CO2 36 mmol/L (21-32); GLUCOSE,RANDOM 109 mg/dL (74-106); POTASSIUM 4.5 mmol/L (3.5-5.1); SODIUM 138 mmol/L (136-145)
--- NOTE | 2019-01-01 11:45 | PN ---
Progress Note (short form) - Note Progress Note: PULMONARY COMPLAINING OF BACK/NECK PAIN PRESENT PAIN MEDS "NOT HELPING" Constitutional: Yes: Well Nourished, Calm Eyes: Yes: WNL HENT: Yes: WNL Neck: Yes: WNL Cardiovascular: Yes: Pulse Irregular, S1, S2 Respiratory: Yes: Bibasilar rhonchi diminished breath sounds Gastrointestinal: Yes: Normal Bowel Sounds, Soft Extremities: Yes: WNL Edema: Yes Labs: reviewed Bump in wbc 's Cxr with new right base infiltrate s/p Laminectomy/L1-S1 Posterior Fusion/Cage Placement/Durotomy repair S/P Acute Respiratory Failure Acute Blood Loss Anemia CAD Atrial Fibrillation Acute on Chronic Diastolic Heart Failure Volume Overload improving Pneumonia UTI COPD Rheumatoid Arthritis HTN Hyperlipidemia h/o Prostate Ca New right base infiltrate - ID to re-eval need for expanded ABS coverage - monitor urine output, creatinine - monitor lytes - rate control - continue anticoagulation - aspiration precautions - DVT/GI prophylaxis - Analgesia Shelbie SOMMER MD
--- NOTE | 2019-01-01 22:11 | PN ---
Progress Note, Physician History of Present Illness: No new changes however pt still complains of back pain - Current Medication List Current Medications: Active Medications Acetaminophen (Tylenol -) 650 mg PO Q6H PRN PRN Reason: PAIN LEVEL 1-3 Last Admin: 01/01/19 20:57 Dose: 650 mg Apixaban (Eliquis -) 5 mg PO BID [facility] Last Admin: 01/01/19 20:59 Dose: 5 mg Aspirin (Ecotrin -) 81 mg PO DAILY [facility] Last Admin: 01/01/19 09:15 Dose: 81 mg Benzocaine/Menthol (Cepacol Lozenge -) 1 each MM PRN PRN PRN Reason: SORE THROAT Furosemide (Lasix -) 40 mg PO BID@0600,1400 [facility] Last Admin: 12/31/18 05:52 Dose: 40 mg Gabapentin (Neurontin -) 300 mg PO TID [facility] Last Admin: 01/01/19 20:59 Dose: 300 mg Ceftriaxone Sodium 2 gm/ (Dextrose) 100 mls @ 200 mls/hr IVPB DAILY [facility]; Protocol Last Admin: 01/01/19 09:13 Dose: 200 mls/hr Metoprolol Tartrate (Lopressor -) 25 mg NGT BID [facility] Last Admin: 01/01/19 21:00 Dose: 25 mg Morphine Sulfate (Morphine Sulfate) 4 mg IVPUSH Q3H PRN PRN Reason: PAIN LEVEL 7 - 10 Last Admin: 01/01/19 13:06 Dose: 4 mg Ondansetron HCl (Zofran Injection) 4 mg IVPUSH Q6H PRN PRN Reason: NAUSEA Oxycodone HCl (Roxicodone -) 10 mg PO Q6H PRN PRN Reason: PAIN LEVEL 4-6 Last Admin: 01/01/19 20:58 Dose: 10 mg - Objective Vital Signs: Vital Signs Temperature 97.7 F 01/01/19 17:13 Pulse Rate 81 01/01/19 17:13 Respiratory Rate 20 01/01/19 17:13 Blood Pressure 98/56 L 01/01/19 17:13 O2 Sat by Pulse Oximetry (%) 100 01/01/19 07:57 Cardiovascular: Yes: Pulse Irregular Respiratory: Yes: Diminished Gastrointestinal: Yes: WNL, Normal Bowel Sounds, Soft Edema: LLE: Trace, RLE: Trace Labs: CBC, BMP 01/01/19 05:30 01/01/19 10:25 INR, PTT INR 1.55 (0.83-1.09) H 12/29/18 05:30 Problem List - Problems (1) Pneumonia Assessment/Plan: Cont IV antibxs Monitor WBC As per ID Code(s): J18.9 - PNEUMONIA, UNSPECIFIED ORGANISM (2) Back pain Assessment/Plan: 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, laminectomy C2-T1 with posterior fusion of C-T1, removal of hardware from L3-S1 (retained screw at right S1) laminectomy of L1/L2 and L2/L3 posterior fusion of L1 through S1, repair of durotomy and cage placement L2-L3 Cont IV ceftriaxone as per ID Cultures remain negative WBC sightly elevated Check WBC in am DC planning to STR Urine culture (+) for yeast Code(s): M54.9 - DORSALGIA, UNSPECIFIED (3) Acute on chronic diastolic (congestive) heart failure Assessment/Plan: Cont PO lasix Code(s): I50.33 - ACUTE ON CHRONIC DIASTOLIC (CONGESTIVE) HEART FAILURE (4) Afib Assessment/Plan: Cont eliquis Monitor H/H Heart rate controlled Code(s): I48.91 - UNSPECIFIED ATRIAL FIBRILLATION (5) Anemia Assessment/Plan: Acute blood loss anemia S/P blood transfusions Monitor H/H Code(s): D64.9 - ANEMIA, UNSPECIFIED (6) CAD (coronary artery disease) Assessment/Plan: Plavix was stopped Cont asa Pt had been on it for a yr s/p stent placement Code(s): I25.10 - ATHSCL HEART DISEASE OF [place] CORONARY ARTERY W/O ANG PCTRS Qualifiers: Coronary Disease-Associated Artery/Lesion type: [place] artery [place] vs. transplanted heart: [place] heart Associated angina: without angina Qualified Code(s): I25.10 - Atherosclerotic heart disease of [place] coronary artery without angina pectoris (7) GERD (gastroesophageal reflux disease) Code(s): K21.9 - GASTRO-ESOPHAGEAL REFLUX DISEASE WITHOUT ESOPHAGITIS (8) HLD (hyperlipidemia) Code(s): E78.5 - HYPERLIPIDEMIA, UNSPECIFIED (9) HTN (hypertension) Code(s): I10 - ESSENTIAL (PRIMARY) HYPERTENSION Qualifiers: Hypertension type: essential hypertension Qualified Code(s): I10 - Essential (primary) hypertension (10) Hx of heart artery stent Code(s): Z95.5 - PRESENCE OF CORONARY ANGIOPLASTY IMPLANT AND GRAFT (11) COPD (chronic obstructive pulmonary disease) Code(s): J44.9 - CHRONIC OBSTRUCTIVE PULMONARY DISEASE, UNSPECIFIED
[2019-01-02] MEDS: oxyCODONE HCL 5 MG TABLET PO PRN ×2 (02:47→10:10)
[2019-01-02] MEDS: ACETAMINOPHEN 325 MG TABLET (FP) PO PRN ×3 (02:49→21:28)
[2019-01-02] MEDS: GABAPENTIN 300 MG CAPSULE (FP) PO SCH ×3 (05:57→21:28)
[2019-01-02] MEDS: morphine SULFATE 4 MG/ML VIAL IVPUSH PRN (05:57)
[2019-01-02 07:34] LABS: ALBUMIN 2.4 g/dl (3.4-5.0); ALK PHOS 89 U/L (45-117); ANION GAP 5 MMOL/L (8-16); BILIRUBIN,TOTAL 0.4 mg/dL (0.2-1); BLOOD UREA NITROGEN 32 mg/dL (7-18); CALCIUM 8.4 mg/dL (8.5-10.1); CHLORIDE 98 mmol/L (98-107); CO2 36 mmol/L (21-32); GLUCOSE,RANDOM 88 mg/dL (74-106); POTASSIUM 4.9 mmol/L (3.5-5.1); SGOT/AST 28 U/L (15-37); SGPT/ALT 34 U/L (13-61); SODIUM 139 mmol/L (136-145)
[2019-01-02 07:35] LABS: BASO % 0.4 % (0-2.0); EOS % 6.4 % (0-4.5); HEMATOCRIT 25.3 % (35.4-49); HEMOGLOBIN 8.7 GM/dL (11.7-16.9); MCHC 34.2 g/dl (32.0-35.9); MEAN CELL VOLUME 96.4 fl (80-96); MONO % 8.4 % (3.8-10.2); NEUT % 71.8 % (42.8-82.8); PLATELET COUNT 719 K/MM3 (134-434); RBC 2.63 M/mm3 (4.00-5.60); RDW 15.4 % (11.9-15.9); WHITE BLOOD COUNT 12.4 K/mm3 (4.0-10.0)
--- NOTE | 2019-01-02 09:50 | PN ---
Progress Note, Physician History of Present Illness: AWAKE, ALERT C/O NECK, BACK PAIN + CONGESTION, COUGH NO C/O CHEST PAIN, DYSPNEA AFEBRILE WBC REMAINS ELEVATED INCREASING PLT COUNT CXR INCREASED MARKINGS RLL - Current Medication List Current Medications: Active Medications Acetaminophen (Tylenol -) 650 mg PO Q6H PRN PRN Reason: PAIN LEVEL 1-3 Last Admin: 01/02/19 02:49 Dose: 650 mg Apixaban (Eliquis -) 5 mg PO BID [facility] Last Admin: 01/01/19 20:59 Dose: 5 mg Aspirin (Ecotrin -) 81 mg PO DAILY [facility] Last Admin: 01/01/19 09:15 Dose: 81 mg Benzocaine/Menthol (Cepacol Lozenge -) 1 each MM PRN PRN PRN Reason: SORE THROAT Furosemide (Lasix -) 40 mg PO BID@0600,1400 [facility] Last Admin: 12/31/18 05:52 Dose: 40 mg Gabapentin (Neurontin -) 300 mg PO TID [facility] Last Admin: 01/02/19 05:57 Dose: 300 mg Ceftriaxone Sodium 2 gm/ (Dextrose) 100 mls @ 200 mls/hr IVPB DAILY [facility]; Protocol Last Admin: 01/01/19 09:13 Dose: 200 mls/hr Metoprolol Tartrate (Lopressor -) 25 mg NGT BID [facility] Last Admin: 01/01/19 21:00 Dose: 25 mg Morphine Sulfate (Morphine Sulfate) 4 mg IVPUSH Q3H PRN PRN Reason: PAIN LEVEL 7 - 10 Last Admin: 01/02/19 05:57 Dose: 4 mg Ondansetron HCl (Zofran Injection) 4 mg IVPUSH Q6H PRN PRN Reason: NAUSEA Oxycodone HCl (Roxicodone -) 10 mg PO Q6H PRN PRN Reason: PAIN LEVEL 4-6 Last Admin: 01/02/19 02:47 Dose: 10 mg - Objective Vital Signs: Vital Signs Temperature 97.8 F 01/02/19 09:00 Pulse Rate 133 H 01/02/19 09:00 Respiratory Rate 20 01/02/19 09:00 Blood Pressure 121/96 01/02/19 09:00 O2 Sat by Pulse Oximetry (%) 98 01/01/19 21:00 Constitutional: Yes: No Distress Eyes: Yes: Conjunctiva Clear Cardiovascular: Yes: Regular Rate and Rhythm, S1, S2 Respiratory: Yes: Rhonchi Gastrointestinal: Yes: Normal Bowel Sounds, Soft. No: Tenderness Edema: Yes Labs: CBC, BMP 01/02/19 05:30 01/02/19 05:30 INR, PTT INR 1.55 (0.83-1.09) H 12/29/18 05:30 Assessment/Plan RLL PNEUMONIA POST OP SPINAL SURGERY REPEAT C/S [employer] ANTIBIOTIC COVERAGE. NOSOCOMIAL RESP TRACT PATHOGENS
[2019-01-02] MEDS ORDERED: DEXTROSE 5%-WATER 100 ML IVPB ONE (09:56)
[2019-01-02] MEDS: METOPROLOL TARTRATE 25 MG TABLET (FP) NGT SCH ×2 (10:11→21:29)
[2019-01-02] MEDS: APIXABAN 5 MG TABLET PO SCH ×2 (10:11→21:28)
[2019-01-02] MEDS: ASPIRIN COATED 81 MG TABLET.EC PO SCH (10:11)
[2019-01-02] MEDS ORDERED: DEXTROSE 5%-WATER - 50 ML IVPB ONE ×2 (10:27→17:36)
[2019-01-02] MEDS ORDERED: PIPERACILLIN/TAZOBACTAM 3.375 GM VIAL IVPB ONE ×2 (10:27→17:36)
--- NOTE | 2019-01-02 10:42 | PN ---
Progress Note (short form) - Note Progress Note: PULMONARY COMPLAINING OF BACK/NECK PAIN PRESENT PAIN MEDS "NOT HELPING" ?DRUG SEEKING Constitutional: Yes: Well Nourished, Calm Eyes: Yes: WNL HENT: Yes: WNL Neck: Yes: WNL Cardiovascular: Yes: Pulse Irregular, S1, S2 Respiratory: Yes: Bibasilar rhonchi diminished breath sounds Gastrointestinal: Yes: Normal Bowel Sounds, Soft Extremities: Yes: WNL Edema: Yes Labs: reviewed Bump in wbc 's Cxr with new right base infiltrate s/p Laminectomy/L1-S1 Posterior Fusion/Cage Placement/Durotomy repair S/P Acute Respiratory Failure Acute Blood Loss Anemia CAD Atrial Fibrillation Acute on Chronic Diastolic Heart Failure Volume Overload improving Pneumonia UTI COPD Rheumatoid Arthritis HTN Hyperlipidemia h/o Prostate Ca New right base infiltrate - ID need for expanded ABS coverage - monitor urine output, creatinine - monitor lytes - rate control - continue anticoagulation - aspiration precautions - DVT/GI prophylaxis - Analgesia Shelbie SOMMER MD
--- NOTE | 2019-01-02 11:22 | PN ---
Progress Note, Physician Chief Complaint: Pt A&Ox3; no chest pain or dyspnea. However, periods of intense back pain at surgical site.c/o constipation History of Present Illness: 73yo M with PMHx CAD-->PCI, diastolic CHF, HTN, severe pulmonary HTN, AF, MMP, presents to the ED for admission for cervical spine surgery with Dr. Taylor. BROOK[place]N Zavala from Dr. Taylor's service is at the bedside at this time. Pt to be admitted for anticoagulation reversal and eventual surgery. No new neurological deficits at this time. Pt admitted to Dr. Taylor. Case discussed in detail with admitting physician including history, physical exam and ancillary studies. - Current Medication List Current Medications: Active Medications Acetaminophen (Tylenol -) 650 mg PO Q6H PRN PRN Reason: PAIN LEVEL 1-3 Last Admin: 01/02/19 10:10 Dose: 650 mg Apixaban (Eliquis -) 5 mg PO BID [facility] Last Admin: 01/02/19 10:11 Dose: 5 mg Aspirin (Ecotrin -) 81 mg PO DAILY [facility] Last Admin: 01/02/19 10:11 Dose: 81 mg Benzocaine/Menthol (Cepacol Lozenge -) 1 each MM PRN PRN PRN Reason: SORE THROAT Furosemide (Lasix -) 40 mg PO BID@0600,1400 [facility] Last Admin: 12/31/18 05:52 Dose: 40 mg Gabapentin (Neurontin -) 300 mg PO TID [facility] Last Admin: 01/02/19 05:57 Dose: 300 mg Piperacillin Sod/Tazobactam (Sod 3.375 gm/ Dextrose) 50 mls @ 100 mls/hr IVPB Q8H-IV [facility]; Protocol Metoprolol Tartrate (Lopressor -) 25 mg NGT BID [facility] Last Admin: 01/02/19 10:11 Dose: 25 mg Morphine Sulfate (Morphine Sulfate) 4 mg IVPUSH Q3H PRN PRN Reason: PAIN LEVEL 7 - 10 Last Admin: 01/02/19 05:57 Dose: 4 mg Ondansetron HCl (Zofran Injection) 4 mg IVPUSH Q6H PRN PRN Reason: NAUSEA Oxycodone HCl (Roxicodone -) 10 mg PO Q6H PRN PRN Reason: PAIN LEVEL 4-6 Last Admin: 01/02/19 10:10 Dose: 10 mg - Objective Vital Signs: Vital Signs Temperature 97.8 F 01/02/19 09:00 Pulse Rate 133 H 01/02/19 09:00 Respiratory Rate 20 01/02/19 09:00 Blood Pressure 121/96 01/02/19 09:00 O2 Sat by Pulse Oximetry (%) 98 01/01/19 21:00 Constitutional: Yes: Anxious Eyes: Yes: WNL HENT: Yes: WNL Neck: Yes: Decreased ROM Cardiovascular: Yes: S1 (varies in intensity), S2 Labs: CBC, BMP 01/02/19 05:30 01/02/19 05:30 INR, PTT INR 1.55 (0.83-1.09) H 12/29/18 05:30 Problem List - Problems (1) Constipation Assessment/Plan: acute/chronic; pt eats "some" fruits and vegetables; on medication ("Exlax") at home. Code(s): K59.00 - CONSTIPATION, UNSPECIFIED (2) Afib Assessment/Plan: On metoprolol for HR control. On apixaban for anticoagulation. Code(s): I48.91 - UNSPECIFIED ATRIAL FIBRILLATION (3) Back pain Assessment/Plan: s/p back surgery. on chronic pain meeications. Code(s): M54.9 - DORSALGIA, UNSPECIFIED (4) Postoperative pain after spinal surgery Code(s): G89.18 - OTHER ACUTE POSTPROCEDURAL PAIN (5) Acute on chronic diastolic (congestive) heart failure Code(s): I50.33 - ACUTE ON CHRONIC DIASTOLIC (CONGESTIVE) HEART FAILURE (6) CAD (coronary artery disease) Code(s): I25.10 - ATHSCL HEART DISEASE OF [place] CORONARY ARTERY W/O ANG PCTRS Qualifiers: Coronary Disease-Associated Artery/Lesion type: [place] artery [place] vs. transplanted heart: [place] heart Associated angina: without angina Qualified Code(s): I25.10 - Atherosclerotic heart disease of [place] coronary artery without angina pectoris (7) COPD (chronic obstructive pulmonary disease) Code(s): J44.9 - CHRONIC OBSTRUCTIVE PULMONARY DISEASE, UNSPECIFIED (8) HLD (hyperlipidemia) Code(s): E78.5 - HYPERLIPIDEMIA, UNSPECIFIED (9) HTN (hypertension) Code(s): I10 - ESSENTIAL (PRIMARY) HYPERTENSION Qualifiers: Hypertension type: essential hypertension Qualified Code(s): I10 - Essential (primary) hypertension (10) Hx of heart artery stent Code(s): Z95.5 - PRESENCE OF CORONARY ANGIOPLASTY IMPLANT AND GRAFT (11) S/P lumbar fusion Code(s): Z98.1 - ARTHRODESIS STATUS (12) Severe pulmonary arterial systolic hypertension Code(s): I27.21 - SECONDARY PULMONARY ARTERIAL HYPERTENSION
[2019-01-02] MEDS: PIPERACILLIN/TAZOB 3.375 GM 3.375 GM in DEXTROSE 5%-WATER - 50 ML IVPB SCH ×2 (12:24→17:45)
[2019-01-02] MEDS: FUROSEMIDE 40 MG TABLET (FP) PO SCH (14:25)
--- NOTE | 2019-01-02 21:47 | PN ---
Progress Note, Physician History of Present Illness: No new changes however pt still complains of back pain - Current Medication List Current Medications: Active Medications Acetaminophen (Tylenol -) 650 mg PO Q6H PRN PRN Reason: PAIN LEVEL 1-3 Last Admin: 01/02/19 21:28 Dose: 650 mg Apixaban (Eliquis -) 5 mg PO BID [facility] Last Admin: 01/02/19 21:28 Dose: 5 mg Aspirin (Ecotrin -) 81 mg PO DAILY [facility] Last Admin: 01/02/19 10:11 Dose: 81 mg Benzocaine/Menthol (Cepacol Lozenge -) 1 each MM PRN PRN PRN Reason: SORE THROAT Furosemide (Lasix -) 40 mg PO BID@0600,1400 [facility] Last Admin: 01/02/19 14:25 Dose: 40 mg Gabapentin (Neurontin -) 300 mg PO TID [facility] Last Admin: 01/02/19 21:28 Dose: 300 mg Piperacillin Sod/Tazobactam (Sod 3.375 gm/ Dextrose) 50 mls @ 100 mls/hr IVPB Q8H-IV [facility]; Protocol Last Admin: 01/02/19 17:45 Dose: 100 mls/hr Metoprolol Tartrate (Lopressor -) 25 mg NGT BID [facility] Last Admin: 01/02/19 21:29 Dose: 25 mg Ondansetron HCl (Zofran Injection) 4 mg IVPUSH Q6H PRN PRN Reason: NAUSEA - Objective Vital Signs: Vital Signs Temperature 98.0 F 01/02/19 18:00 Pulse Rate 80 01/02/19 18:00 Respiratory Rate 16 01/02/19 18:00 Blood Pressure 97/53 L 01/02/19 18:00 O2 Sat by Pulse Oximetry (%) 98 01/01/19 21:00 Neck: Yes: Other ((+) C-collar) Cardiovascular: Yes: Pulse Irregular Respiratory: Yes: Diminished Gastrointestinal: Yes: WNL, Normal Bowel Sounds, Soft Edema: LLE: Trace, RLE: Trace Labs: CBC, BMP 01/02/19 05:30 01/02/19 05:30 INR, PTT INR 1.55 (0.83-1.09) H 12/29/18 05:30 Problem List - Problems (1) Pneumonia Assessment/Plan: Cont IV zosyn and monitor WBC Code(s): J18.9 - PNEUMONIA, UNSPECIFIED ORGANISM (2) Back pain Assessment/Plan: 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, laminectomy C2-T1 with posterior fusion of C-T1, removal of hardware from L3-S1 (retained screw at right S1) laminectomy of L1/L2 and L2/L3 posterior fusion of L1 through S1, repair of durotomy and cage placement L2-L3 Cont IV ceftriaxone as per ID Cultures remain negative WBC sightly elevated Check WBC in am DC planning to STR Urine culture (+) for yeast Code(s): M54.9 - DORSALGIA, UNSPECIFIED (3) Acute on chronic diastolic (congestive) heart failure Assessment/Plan: Cont PO lasix Code(s): I50.33 - ACUTE ON CHRONIC DIASTOLIC (CONGESTIVE) HEART FAILURE (4) Afib Assessment/Plan: Cont eliquis Monitor H/H Heart rate controlled Code(s): I48.91 - UNSPECIFIED ATRIAL FIBRILLATION (5) Anemia Assessment/Plan: Acute blood loss anemia S/P blood transfusions Monitor H/H Code(s): D64.9 - ANEMIA, UNSPECIFIED (6) CAD (coronary artery disease) Assessment/Plan: Plavix was stopped Cont asa Pt had been on it for a yr s/p stent placement Code(s): I25.10 - ATHSCL HEART DISEASE OF [place] CORONARY ARTERY W/O ANG PCTRS Qualifiers: Coronary Disease-Associated Artery/Lesion type: [place] artery [place] vs. transplanted heart: [place] heart Associated angina: without angina Qualified Code(s): I25.10 - Atherosclerotic heart disease of [place] coronary artery without angina pectoris (7) GERD (gastroesophageal reflux disease) Code(s): K21.9 - GASTRO-ESOPHAGEAL REFLUX DISEASE WITHOUT ESOPHAGITIS (8) HLD (hyperlipidemia) Code(s): E78.5 - HYPERLIPIDEMIA, UNSPECIFIED (9) HTN (hypertension) Code(s): I10 - ESSENTIAL (PRIMARY) HYPERTENSION Qualifiers: Hypertension type: essential hypertension Qualified Code(s): I10 - Essential (primary) hypertension (10) Hx of heart artery stent Code(s): Z95.5 - PRESENCE OF CORONARY ANGIOPLASTY IMPLANT AND GRAFT (11) COPD (chronic obstructive pulmonary disease) Assessment/Plan: Cont inhalers Code(s): J44.9 - CHRONIC OBSTRUCTIVE PULMONARY DISEASE, UNSPECIFIED
[2019-01-03] MEDS ORDERED: PIPERACILLIN/TAZOBACTAM 3.375 GM VIAL IVPB ONE ×3 (02:15→17:41)
[2019-01-03] MEDS ORDERED: DEXTROSE 5%-WATER - 50 ML IVPB ONE ×3 (02:16→17:41)
[2019-01-03] MEDS: PIPERACILLIN/TAZOB 3.375 GM 3.375 GM in DEXTROSE 5%-WATER - 50 ML IVPB SCH ×3 (02:30→17:37)
[2019-01-03] MEDS: ACETAMINOPHEN 325 MG TABLET (FP) PO PRN (06:16)
[2019-01-03] MEDS: GABAPENTIN 300 MG CAPSULE (FP) PO SCH ×3 (06:16→21:51)
[2019-01-03] MEDS: FUROSEMIDE 40 MG TABLET (FP) PO SCH ×2 (06:16→13:25)
[2019-01-03 07:25] LABS: BASO % 0.4 % (0-2.0); EOS % 5.8 % (0-4.5); HEMATOCRIT 23.6 % (35.4-49); LYMPH % 12.8 % (8-40); MCH 32.6 pg (25.7-33.7); MEAN CELL VOLUME 95.8 fl (80-96); MONO % 7.2 % (3.8-10.2); NEUT % 73.8 % (42.8-82.8); PLATELET COUNT 768 K/MM3 (134-434); RBC 2.46 M/mm3 (4.00-5.60); RDW 15.4 % (11.9-15.9)
[2019-01-03 07:45] LABS: ALBUMIN 2.3 g/dl (3.4-5.0); ALK PHOS 83 U/L (45-117); ANION GAP 7 MMOL/L (8-16); BILIRUBIN,TOTAL 0.4 mg/dL (0.2-1); BLOOD UREA NITROGEN 31 mg/dL (7-18); CALCIUM 8.4 mg/dL (8.5-10.1); CHLORIDE 97 mmol/L (98-107); CO2 33 mmol/L (21-32); GLUCOSE,RANDOM 84 mg/dL (74-106); SGOT/AST 25 U/L (15-37); SGPT/ALT 32 U/L (13-61); SODIUM 138 mmol/L (136-145); TOT PROT 4.8 g/dl (6.4-8.2)
[2019-01-03] MEDS: METOPROLOL TARTRATE 25 MG TABLET (FP) NGT SCH ×2 (09:33→21:51)
[2019-01-03] MEDS: APIXABAN 5 MG TABLET PO SCH ×2 (09:33→21:50)
[2019-01-03] MEDS: ASPIRIN COATED 81 MG TABLET.EC PO SCH (09:33)
--- NOTE | 2019-01-03 13:03 | PN ---
Progress Note, Physician Chief Complaint: Pt A&Ox3; no chest pain or dyspnea; c/o intermitent back pain "from my neck all the way down my spine". c/o inability to eat because of constipation ("I can't put anything more in ther"). Family (sisters) at beside. History of Present Illness: 73yo black man with PMHx CAD-->PCI, diastolic CHF, HTN, severe pulmonary HTN, AF , MMP, presents to the ED for admission for cervical spine surgery with Dr. Taylor. BROOK[place]N Zavala from Dr. Taylor's service is at the bedside at this time. Pt to be admitted for anticoagulation reversal and eventual surgery. No new neurological deficits at this time. Pt admitted to Dr. Taylor. Case discussed in detail with admitting physician including history, physical exam and ancillary studies. - Current Medication List Current Medications: Active Medications Acetaminophen (Tylenol -) 650 mg PO Q6H PRN PRN Reason: PAIN LEVEL 1-3 Last Admin: 01/03/19 06:16 Dose: 650 mg Apixaban (Eliquis -) 5 mg PO BID [facility] Last Admin: 01/03/19 09:33 Dose: 5 mg Aspirin (Ecotrin -) 81 mg PO DAILY [facility] Last Admin: 01/03/19 09:33 Dose: 81 mg Benzocaine/Menthol (Cepacol Lozenge -) 1 each MM PRN PRN PRN Reason: SORE THROAT Furosemide (Lasix -) 40 mg PO BID@0600,1400 [facility] Last Admin: 01/03/19 06:16 Dose: 40 mg Gabapentin (Neurontin -) 300 mg PO TID [facility] Last Admin: 01/03/19 06:16 Dose: 300 mg Piperacillin Sod/Tazobactam (Sod 3.375 gm/ Dextrose) 50 mls @ 100 mls/hr IVPB Q8H-IV [facility]; Protocol Last Admin: 01/03/19 09:33 Dose: 100 mls/hr Metoprolol Tartrate (Lopressor -) 25 mg NGT BID [facility] Last Admin: 01/03/19 09:33 Dose: 25 mg Ondansetron HCl (Zofran Injection) 4 mg IVPUSH Q6H PRN PRN Reason: NAUSEA - Objective Vital Signs: Vital Signs Temperature 97.5 F L 01/03/19 09:21 Pulse Rate 76 01/03/19 09:21 Respiratory Rate 18 01/03/19 09:21 Blood Pressure 86/50 L 01/03/19 09:21 O2 Sat by Pulse Oximetry (%) 98 01/03/19 08:12 Constitutional: Yes: Anxious Cardiovascular: Yes: Murmur (2/6 systolic murmur, LSB-->apex), S1 (varies in intensity), S2 Respiratory: Yes: Cough, Diminished (right base) Gastrointestinal: Yes: Soft ...Rectal Exam: Yes: Deferred Genitourinary: No: Anuria Breast(s): Yes: WNL Musculoskeletal: Yes: Back Pain, Joint Stiffness, Muscle Weakness Extremities: Yes: WNL Edema: No Peripheral Pulses WNL: Yes Integumentary: Yes: WNL Labs: CBC, BMP 01/03/19 06:00 01/03/19 06:00 INR, PTT INR 1.55 (0.83-1.09) H 12/29/18 05:30 Problem List - Problems (1) Constipation Assessment/Plan: acute/chronic; pt eats "some" fruits and vegetables; on medication ("Exlax") at home. Code(s): K59.00 - CONSTIPATION, UNSPECIFIED (2) Afib Assessment/Plan: On metoprolol for HR control. On apixaban for anticoagulation. Code(s): I48.91 - UNSPECIFIED ATRIAL FIBRILLATION (3) Postoperative pain after spinal surgery Code(s): G89.18 - OTHER ACUTE POSTPROCEDURAL PAIN (4) Back pain Assessment/Plan: s/p back surgery. Seeks chronic pain medications. Code(s): M54.9 - DORSALGIA, UNSPECIFIED (5) Acute on chronic diastolic (congestive) heart failure Code(s): I50.33 - ACUTE ON CHRONIC DIASTOLIC (CONGESTIVE) HEART FAILURE (6) CAD (coronary artery disease) Code(s): I25.10 - ATHSCL HEART DISEASE OF [place] CORONARY ARTERY W/O ANG PCTRS Qualifiers: Coronary Disease-Associated Artery/Lesion type: [place] artery [place] vs. transplanted heart: [place] heart Associated angina: without angina Qualified Code(s): I25.10 - Atherosclerotic heart disease of 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 Code(s): I10 - ESSENTIAL (PRIMARY) HYPERTENSION Qualifiers: Hypertension type: essential hypertension Qualified Code(s): I10 - Essential (primary) hypertension (10) Hx of heart artery stent Code(s): Z95.5 - PRESENCE OF CORONARY ANGIOPLASTY IMPLANT AND GRAFT (11) S/P lumbar fusion Code(s): Z98.1 - ARTHRODESIS STATUS (12) Severe pulmonary arterial systolic hypertension Code(s): I27.21 - SECONDARY PULMONARY ARTERIAL HYPERTENSION (13) Dependency on pain medication Code(s): F19.20 - OTHER PSYCHOACTIVE SUBSTANCE DEPENDENCE, UNCOMPLICATED
[2019-01-03 13:07] LABS: CHOLESTEROL 97 mg/dL (50-200); HDL CHOLESTEROL 31 mg/dL (40-60); TRIGLYCERIDES 65 mg/dL (0-150)
--- NOTE | 2019-01-03 14:47 | PN ---
Progress Note (short form) - Note Progress Note: PULMONARY COMPLAINING OF BACK/NECK PAIN PRESENT PAIN MEDS "NOT HELPING" ?DRUG SEEKING PRESENT Constitutional: Yes: Well Nourished Eyes: Yes: WNL HENT: Yes: WNL Neck: Yes: WNL Cardiovascular: Yes: Pulse Irregular, S1, S2 Respiratory: Yes: Bibasilar rhonchi diminished breath sounds Gastrointestinal: Yes: Normal Bowel Sounds, Soft Extremities: Yes: WNL Edema: Yes Labs: reviewed Bump in wbc 's Cxr with new right base infiltrate s/p Laminectomy/L1-S1 Posterior Fusion/Cage Placement/Durotomy repair S/P Acute Respiratory Failure Acute Blood Loss Anemia CAD Atrial Fibrillation Acute on Chronic Diastolic Heart Failure Volume Overload improving Pneumonia UTI COPD Rheumatoid Arthritis HTN Hyperlipidemia h/o Prostate Ca New right base infiltrate - ID has expanded ABS coverage - monitor urine output, creatinine - monitor lytes - rate control - continue anticoagulation - aspiration precautions - DVT/GI prophylaxis - Analgesia Shelbie SOMMER MD
--- NOTE | 2019-01-03 18:47 | PN ---
Progress Note (short form) - Note Progress Note: Patient resting in no acute distress. Complains of pain. Hand function ( dexterity and sensation) continues to improve. Right LL pneumonia and UTI under treatment Using supplemental Oxygen - GI/DVT prophylaxis - OOB to chair daily - Physical Therapy - Patient clear for discharge to [facility] from Neurosurgery standpoint
[2019-01-03] MEDS: oxyCODONE HCL 5 MG TABLET PO PRN (20:15)
[2019-01-03] MEDS: DOCUSATE SODIUM 100 MG CAPSULE (FP) PO SCH (21:50)
--- NOTE | 2019-01-03 23:36 | PN.GI ---
GI Progress Note Subjective: Pt has been sleeping alot however still c/o back pain - Objective Vital Signs: Vital Signs Temperature 98.1 F 01/03/19 22:00 Pulse Rate 81 01/03/19 22:00 Respiratory Rate 20 01/03/19 22:00 Blood Pressure 98/54 L 01/03/19 22:00 O2 Sat by Pulse Oximetry (%) 99 01/03/19 21:00 Constitutional: Well Nourished Neck: Yes: Other ((+) C-collar) Cardiovascular: Yes: Pulse Irregular Respiratory: Yes: Diminished Gastrointestinal Inspection: Yes: WNL Edema: LLE: Trace, RLE: Trace Labs: CBC, BMP 01/03/19 06:00 01/03/19 06:00 INR, PTT INR 1.55 (0.83-1.09) H 12/29/18 05:30 Problem List - Problems (1) Pneumonia Assessment/Plan: Cont IV zosyn and monitor WBC Code(s): J18.9 - PNEUMONIA, UNSPECIFIED ORGANISM (2) Back pain Assessment/Plan: 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, laminectomy C2-T1 with posterior fusion of C-T1, removal of hardware from L3-S1 (retained screw at right S1) laminectomy of L1/L2 and L2/L3 posterior fusion of L1 through S1, repair of durotomy and cage placement L2-L3 Cont IV ceftriaxone as per ID Cultures remain negative WBC sightly elevated Check WBC in am DC planning to STR Urine culture (+) for yeast Code(s): M54.9 - DORSALGIA, UNSPECIFIED (3) Acute on chronic diastolic (congestive) heart failure Assessment/Plan: Cont PO lasix Code(s): I50.33 - ACUTE ON CHRONIC DIASTOLIC (CONGESTIVE) HEART FAILURE (4) Afib Assessment/Plan: Cont eliquis Monitor H/H Heart rate controlled Code(s): I48.91 - UNSPECIFIED ATRIAL FIBRILLATION (5) Anemia Assessment/Plan: Acute blood loss anemia S/P blood transfusions Monitor H/H Code(s): D64.9 - ANEMIA, UNSPECIFIED (6) CAD (coronary artery disease) Assessment/Plan: Plavix was stopped Cont asa Pt had been on it for a yr s/p stent placement Code(s): I25.10 - ATHSCL HEART DISEASE OF [place] CORONARY ARTERY W/O ANG PCTRS Qualifiers: Coronary Disease-Associated Artery/Lesion type: [place] artery [place] vs. transplanted heart: [place] heart Associated angina: without angina Qualified Code(s): I25.10 - Atherosclerotic heart disease of [place] coronary artery without angina pectoris (7) GERD (gastroesophageal reflux disease) Code(s): K21.9 - GASTRO-ESOPHAGEAL REFLUX DISEASE WITHOUT ESOPHAGITIS (8) HLD (hyperlipidemia) Code(s): E78.5 - HYPERLIPIDEMIA, UNSPECIFIED (9) HTN (hypertension) Code(s): I10 - ESSENTIAL (PRIMARY) HYPERTENSION Qualifiers: Hypertension type: essential hypertension Qualified Code(s): I10 - Essential (primary) hypertension (10) Hx of heart artery stent Code(s): Z95.5 - PRESENCE OF CORONARY ANGIOPLASTY IMPLANT AND GRAFT (11) COPD (chronic obstructive pulmonary disease) Code(s): J44.9 - CHRONIC OBSTRUCTIVE PULMONARY DISEASE, UNSPECIFIED
[2019-01-04] MEDS ORDERED: DEXTROSE 5%-WATER - 50 ML IVPB ONE ×3 (01:27→16:49)
[2019-01-04] MEDS ORDERED: PIPERACILLIN/TAZOBACTAM 3.375 GM VIAL IVPB ONE ×3 (01:27→16:49)
[2019-01-04] MEDS: PIPERACILLIN/TAZOB 3.375 GM 3.375 GM in DEXTROSE 5%-WATER - 50 ML IVPB SCH ×3 (01:34→18:24)
[2019-01-04] MEDS: FUROSEMIDE 40 MG TABLET (FP) PO SCH ×2 (05:57→10:13)
[2019-01-04] MEDS: DOCUSATE SODIUM 100 MG CAPSULE (FP) PO SCH ×3 (05:57→21:15)
[2019-01-04] MEDS: GABAPENTIN 300 MG CAPSULE (FP) PO SCH ×3 (05:58→21:15)
[2019-01-04] MEDS: oxyCODONE HCL 5 MG TABLET PO PRN ×4 (05:58→23:57)
--- NOTE | 2019-01-04 09:08 | PN ---
Progress Note, Physician Chief Complaint: seen and examine on telemetry Rate controlled AF Denies CP or SOB. C/o back pain. History of Present Illness: Over weekend, antibiotic coverage broadened by ID for new infiltrate right base - Current Medication List Current Medications: Active Medications Acetaminophen (Tylenol -) 650 mg PO Q6H PRN PRN Reason: PAIN LEVEL 1-3 Last Admin: 01/03/19 06:16 Dose: 650 mg Acetaminophen (Tylenol -) 650 mg PO Q8H PRN PRN Reason: PAIN SCALE 7-10 Apixaban (Eliquis -) 5 mg PO BID [facility] Last Admin: 01/03/19 21:50 Dose: 5 mg Aspirin (Ecotrin -) 81 mg PO DAILY [facility] Last Admin: 01/03/19 09:33 Dose: 81 mg Benzocaine/Menthol (Cepacol Lozenge -) 1 each MM PRN PRN PRN Reason: SORE THROAT Docusate Sodium (Colace -) 100 mg PO TID [facility] Last Admin: 01/04/19 05:57 Dose: 100 mg Furosemide (Lasix -) 40 mg PO BID@0600,1400 [facility] Last Admin: 01/04/19 05:57 Dose: 40 mg Gabapentin (Neurontin -) 300 mg PO TID [facility] Last Admin: 01/04/19 05:58 Dose: 300 mg Piperacillin Sod/Tazobactam (Sod 3.375 gm/ Dextrose) 50 mls @ 100 mls/hr IVPB Q8H-IV [facility]; Protocol Last Admin: 01/04/19 01:34 Dose: 100 mls/hr Metoprolol Tartrate (Lopressor -) 25 mg NGT BID [facility] Last Admin: 01/03/19 21:51 Dose: 25 mg Ondansetron HCl (Zofran Injection) 4 mg IVPUSH Q6H PRN PRN Reason: NAUSEA Oxycodone HCl (Roxicodone -) 10 mg PO Q8H PRN PRN Reason: PAIN SCALE 7-10 Last Admin: 01/04/19 05:58 Dose: 10 mg - Objective Vital Signs: Vital Signs Temperature 97.9 F 01/04/19 06:00 Pulse Rate 73 01/04/19 06:00 Respiratory Rate 20 01/04/19 06:00 Blood Pressure 100/58 L 01/04/19 06:00 O2 Sat by Pulse Oximetry (%) 99 01/03/19 21:00 Constitutional: Yes: No Distress Eyes: Yes: Conjunctiva Clear Cardiovascular: Yes: Pulse Irregular Respiratory: Yes: Other (slight decreased breath sounds at bases. No wheezing) Gastrointestinal: Yes: Soft Edema: No (venodynes in place) Peripheral Pulses WNL: Yes Neurological: Yes: Alert, Oriented Labs: CBC, BMP 01/03/19 06:00 01/03/19 06:00 INR, PTT INR 1.55 (0.83-1.09) H 12/29/18 05:30 Microbiology 12/24/18 05:30 Blood - Peripheral Venous Blood Culture - Final NO GROWTH AFTER 5 DAYS INCUBATION 12/24/18 03:00 Blood - Peripheral Venous Blood Culture - Final NO GROWTH AFTER 5 DAYS INCUBATION Laboratory Tests 01/03/19 01/03/19 06:00 06:00 WBC 14.0 H Hgb 8.0 L Hct 23.6 L Plt Count 768 H Sodium 138 BUN 31 H Creatinine 1.0 - ....Imaging EKG: Image Reviewed Problem List - Problems (1) Back pain Code(s): M54.9 - DORSALGIA, UNSPECIFIED (2) Paroxysmal atrial fibrillation Code(s): I48.0 - PAROXYSMAL ATRIAL FIBRILLATION (3) CAD (coronary artery disease) Code(s): I25.10 - ATHSCL HEART DISEASE OF [place] CORONARY ARTERY W/O ANG PCTRS Qualifiers: Coronary Disease-Associated Artery/Lesion type: [place] artery [place] vs. transplanted heart: [place] heart Associated angina: without angina Qualified Code(s): I25.10 - Atherosclerotic heart disease of [place] coronary artery without angina pectoris (4) Hx of heart artery stent Code(s): Z95.5 - PRESENCE OF CORONARY ANGIOPLASTY IMPLANT AND GRAFT (5) HTN (hypertension) Code(s): I10 - ESSENTIAL (PRIMARY) HYPERTENSION Qualifiers: Hypertension type: essential hypertension Qualified Code(s): I10 - Essential (primary) hypertension (6) Pulmonary hypertension Code(s): I27.20 - PULMONARY HYPERTENSION, UNSPECIFIED (7) Anticoagulation management encounter Code(s): Z51.81 - ENCOUNTER FOR THERAPEUTIC DRUG LEVEL MONITORING; Z79.01 - FILLING MIXER (CURRENT) USE OF ANTICOAGULANTS Assessment/Plan IMP: 1. Intractable neck pain, cervical and lumbar disc disease s/p Removal of hardware from C2-C7, laminectomy C2-T1 with posterior fusion of C2-T1. removal of hardware from L3-S1(retained screw at Right S1) laminectomy of L1/L2 and L2/L3 posterior fusion of L1 thru S1, repair of durotomy and cage placment L2-L3 2. PHTN, chronic 3. CAD s/p PCI 4. Permanent AF 5. Acute on chronic diastolic CHF 6. Moderate MR 7. Post op fever: cultures negative. 8. Anemia REC: 1. Continue abx as per ID for suspected PNA. 2. Blood cultures remain negative; ID following. 3. Slow drift in H/H, no signs active bleeding. Serial CBCs, consider transfuse 1UPRBCs 4. Transitioned back to oral AC. 6. Continue [place] for rate control. 8. ASA has been resumed (prior coronary PCI) 9. Start PPI. 10. Elevated platelets: likely reactive. Will follow
[2019-01-04] MEDS ORDERED: FUROSEMIDE 40 MG/4 ML INJECTABLE VIAL IVPUSH ONE ×2 (09:58→17:45)
[2019-01-04] MEDS: ASPIRIN COATED 81 MG TABLET.EC PO SCH (10:13)
[2019-01-04] MEDS: APIXABAN 5 MG TABLET PO SCH ×2 (10:13→21:15)
[2019-01-04] MEDS: METOPROLOL TARTRATE 25 MG TABLET (FP) NGT SCH ×2 (10:13→21:15)
[2019-01-04] MEDS: PANTOPRAZOLE 40 MG TABLET (FP) PO SCH (10:14)
--- NOTE | 2019-01-04 10:51 | PN ---
Progress Note, Physician History of Present Illness: PULMONARY ALERT FEELING BETTER ,-CP,-SOB,+ BACK PAIN - Current Medication List Current Medications: Active Medications Acetaminophen (Tylenol -) 650 mg PO Q6H PRN PRN Reason: PAIN LEVEL 1-3 Last Admin: 01/03/19 06:16 Dose: 650 mg Acetaminophen (Tylenol -) 650 mg PO Q8H PRN PRN Reason: PAIN SCALE 7-10 Apixaban (Eliquis -) 5 mg PO BID [facility] Last Admin: 01/04/19 10:13 Dose: 5 mg Aspirin (Ecotrin -) 81 mg PO DAILY [facility] Last Admin: 01/04/19 10:13 Dose: 81 mg Benzocaine/Menthol (Cepacol Lozenge -) 1 each MM PRN PRN PRN Reason: SORE THROAT Docusate Sodium (Colace -) 100 mg PO TID [facility] Last Admin: 01/04/19 05:57 Dose: 100 mg Furosemide (Lasix -) 40 mg PO DAILY [facility] Last Admin: 01/04/19 10:13 Dose: 40 mg Gabapentin (Neurontin -) 300 mg PO TID [facility] Last Admin: 01/04/19 05:58 Dose: 300 mg Piperacillin Sod/Tazobactam (Sod 3.375 gm/ Dextrose) 50 mls @ 100 mls/hr IVPB Q8H-IV [facility]; Protocol Last Admin: 01/04/19 10:13 Dose: 100 mls/hr Metoprolol Tartrate (Lopressor -) 25 mg NGT BID [facility] Last Admin: 01/04/19 10:13 Dose: 25 mg Ondansetron HCl (Zofran Injection) 4 mg IVPUSH Q6H PRN PRN Reason: NAUSEA Oxycodone HCl (Roxicodone -) 10 mg PO Q8H PRN PRN Reason: PAIN SCALE 7-10 Last Admin: 01/04/19 05:58 Dose: 10 mg Pantoprazole Sodium (Protonix -) 40 mg PO DAILY [facility] Last Admin: 01/04/19 10:14 Dose: 40 mg - Objective Vital Signs: Vital Signs Temperature 98 F 01/04/19 09:00 Pulse Rate 80 01/04/19 09:00 Respiratory Rate 20 01/04/19 09:00 Blood Pressure 100/56 L 01/04/19 09:00 O2 Sat by Pulse Oximetry (%) 99 01/03/19 21:00 Constitutional: Yes: Well Nourished, Calm Eyes: Yes: WNL HENT: Yes: WNL Neck: Yes: WNL Cardiovascular: Yes: Pulse Irregular, S1, S2 Respiratory: Yes: Diminished Gastrointestinal: Yes: Normal Bowel Sounds, Soft Extremities: Yes: WNL Edema: Yes Labs: CBC, BMP 01/03/19 06:00 01/03/19 06:00 INR, PTT INR 1.55 (0.83-1.09) H 12/29/18 05:30 Problem List - Problems (1) Respiratory failure Code(s): J96.90 - RESPIRATORY FAILURE, UNSP, UNSP W HYPOXIA OR HYPERCAPNIA (2) Afib Code(s): I48.91 - UNSPECIFIED ATRIAL FIBRILLATION (3) Cervical myelopathy Code(s): G95.9 - DISEASE OF SPINAL CORD, UNSPECIFIED (4) Pulmonary hypertension Code(s): I27.20 - PULMONARY HYPERTENSION, UNSPECIFIED (5) Acute on chronic diastolic (congestive) heart failure Code(s): I50.33 - ACUTE ON CHRONIC DIASTOLIC (CONGESTIVE) HEART FAILURE (6) Acute renal failure Code(s): N17.9 - ACUTE KIDNEY FAILURE, UNSPECIFIED (7) Anemia Code(s): D64.9 - ANEMIA, UNSPECIFIED (8) CAD (coronary artery disease) Code(s): I25.10 - ATHSCL HEART DISEASE OF [place] CORONARY ARTERY W/O ANG PCTRS Qualifiers: Coronary Disease-Associated Artery/Lesion type: [place] artery [place] vs. transplanted heart: [place] heart Associated angina: without angina Qualified Code(s): I25.10 - Atherosclerotic heart disease of [place] coronary artery without angina pectoris (9) COPD (chronic obstructive pulmonary disease) Code(s): J44.9 - CHRONIC OBSTRUCTIVE PULMONARY DISEASE, UNSPECIFIED (10) HLD (hyperlipidemia) Code(s): E78.5 - HYPERLIPIDEMIA, UNSPECIFIED (11) HTN (hypertension) Code(s): I10 - ESSENTIAL (PRIMARY) HYPERTENSION Qualifiers: Hypertension type: essential hypertension Qualified Code(s): I10 - Essential (primary) hypertension (12) Hx of heart artery stent Code(s): Z95.5 - PRESENCE OF CORONARY ANGIOPLASTY IMPLANT AND GRAFT Assessment/Plan ASSESSMENT AND PLAN: s/p CHELE C2-T1/L3-S1/Laminectomy/L1-S1 Posterior Fusion/Cage Placement/Durotomy repair S/P Acute Respiratory Failure Acute Blood Loss Anemia CAD Atrial Fibrillation Acute on Chronic Diastolic Heart Failure Volume Overload improving Pneumonia UTI COPD Rheumatoid Arthritis HTN Hyperlipidemia h/o Prostate Ca - lasix as needed - monitor urine output, creatinine - monitor lytes - antibiotics - rate control - continue anticoagulation - aspiration precautions - DVT/GI prophylaxis DR MUNOZ
[2019-01-04] MEDS: ACETAMINOPHEN 325 MG TABLET (FP) PO PRN ×3 (12:20→23:58)
--- NOTE | 2019-01-04 12:21 | PN ---
Progress Note, Physician History of Present Illness: AWAKE, ALERT C/O NECK PAIN + CONGESTION, COUGH NO C/O CHEST PAIN, DYSPNEA AFEBRILE WBC REMAINS ELEVATED CXR INCREASED MARKINGS RLL - Current Medication List Current Medications: Active Medications Acetaminophen (Tylenol -) 650 mg PO Q6H PRN PRN Reason: PAIN LEVEL 1-3 Last Admin: 01/03/19 06:16 Dose: 650 mg Acetaminophen (Tylenol -) 650 mg PO Q8H PRN PRN Reason: PAIN SCALE 7-10 Apixaban (Eliquis -) 5 mg PO BID [facility] Last Admin: 01/04/19 10:13 Dose: 5 mg Aspirin (Ecotrin -) 81 mg PO DAILY [facility] Last Admin: 01/04/19 10:13 Dose: 81 mg Benzocaine/Menthol (Cepacol Lozenge -) 1 each MM PRN PRN PRN Reason: SORE THROAT Docusate Sodium (Colace -) 100 mg PO TID [facility] Last Admin: 01/04/19 05:57 Dose: 100 mg Furosemide (Lasix -) 40 mg PO DAILY [facility] Last Admin: 01/04/19 10:13 Dose: 40 mg Gabapentin (Neurontin -) 300 mg PO TID [facility] Last Admin: 01/04/19 05:58 Dose: 300 mg Piperacillin Sod/Tazobactam (Sod 3.375 gm/ Dextrose) 50 mls @ 100 mls/hr IVPB Q8H-IV [facility]; Protocol Last Admin: 01/04/19 10:13 Dose: 100 mls/hr Metoprolol Tartrate (Lopressor -) 25 mg NGT BID [facility] Last Admin: 01/04/19 10:13 Dose: 25 mg Ondansetron HCl (Zofran Injection) 4 mg IVPUSH Q6H PRN PRN Reason: NAUSEA Oxycodone HCl (Roxicodone -) 10 mg PO Q8H PRN PRN Reason: PAIN SCALE 7-10 Last Admin: 01/04/19 05:58 Dose: 10 mg Pantoprazole Sodium (Protonix -) 40 mg PO DAILY [facility] Last Admin: 01/04/19 10:14 Dose: 40 mg - Objective Vital Signs: Vital Signs Temperature 98 F 01/04/19 09:00 Pulse Rate 80 01/04/19 09:00 Respiratory Rate 20 01/04/19 09:00 Blood Pressure 100/56 L 01/04/19 09:00 O2 Sat by Pulse Oximetry (%) 99 01/03/19 21:00 Constitutional: Yes: No Distress Eyes: Yes: Conjunctiva Clear Cardiovascular: Yes: Regular Rate and Rhythm, S1, S2 Respiratory: Yes: Rhonchi Gastrointestinal: Yes: Normal Bowel Sounds, Soft. No: Tenderness Edema: LLE: 1+, RLE: 1+ Labs: CBC, BMP 01/03/19 06:00 01/03/19 06:00 INR, PTT INR 1.55 (0.83-1.09) H 12/29/18 05:30 Assessment/Plan RLL PNEUMONIA POST OP SPINAL SURGERY CONTINUE ANTIBIOTIC COVERAGE. NOSOCOMIAL RESP TRACT PATHOGENS
--- NOTE | 2019-01-04 22:19 | PN ---
Progress Note, Physician History of Present Illness: No new changes however pt still complains of back pain - Current Medication List Current Medications: Active Medications Acetaminophen (Tylenol -) 650 mg PO Q6H PRN PRN Reason: PAIN LEVEL 1-3 Last Admin: 01/04/19 18:15 Dose: 650 mg Acetaminophen (Tylenol -) 650 mg PO Q8H PRN PRN Reason: PAIN SCALE 7-10 Last Admin: 01/04/19 12:20 Dose: 650 mg Apixaban (Eliquis -) 5 mg PO BID [facility] Last Admin: 01/04/19 21:15 Dose: 5 mg Aspirin (Ecotrin -) 81 mg PO DAILY [facility] Last Admin: 01/04/19 10:13 Dose: 81 mg Benzocaine/Menthol (Cepacol Lozenge -) 1 each MM PRN PRN PRN Reason: SORE THROAT Docusate Sodium (Colace -) 100 mg PO TID [facility] Last Admin: 01/04/19 21:15 Dose: 100 mg Furosemide (Lasix -) 40 mg PO DAILY [facility] Last Admin: 01/04/19 10:13 Dose: 40 mg Gabapentin (Neurontin -) 300 mg PO TID [facility] Last Admin: 01/04/19 21:15 Dose: 300 mg Piperacillin Sod/Tazobactam (Sod 3.375 gm/ Dextrose) 50 mls @ 100 mls/hr IVPB Q8H-IV [facility]; Protocol Last Admin: 01/04/19 18:24 Dose: 100 mls/hr Metoprolol Tartrate (Lopressor -) 25 mg NGT BID [facility] Last Admin: 01/04/19 21:15 Dose: 25 mg Ondansetron HCl (Zofran Injection) 4 mg IVPUSH Q6H PRN PRN Reason: NAUSEA Oxycodone HCl (Roxicodone -) 10 mg PO Q6H PRN PRN Reason: PAIN SCALE 7-10 Last Admin: 01/04/19 18:14 Dose: 10 mg Pantoprazole Sodium (Protonix -) 40 mg PO DAILY [facility] Last Admin: 01/04/19 10:14 Dose: 40 mg - Objective Vital Signs: Vital Signs Temperature 97.4 F L 01/04/19 17:00 Pulse Rate 71 01/04/19 17:00 Respiratory Rate 20 01/04/19 17:00 Blood Pressure 99/62 01/04/19 17:00 O2 Sat by Pulse Oximetry (%) 99 01/04/19 09:00 Cardiovascular: Yes: WNL Respiratory: Yes: WNL, Regular, CTA Bilaterally Gastrointestinal: Yes: WNL, Normal Bowel Sounds, Soft Labs: CBC, BMP 01/03/19 06:00 01/03/19 06:00 INR, PTT INR 1.55 (0.83-1.09) H 12/29/18 05:30 Problem List - Problems (1) Pneumonia Assessment/Plan: Cont IV antibxs Monitor WBC As per ID Code(s): J18.9 - PNEUMONIA, UNSPECIFIED ORGANISM (2) Back pain Assessment/Plan: 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, laminectomy C2-T1 with posterior fusion of C-T1, removal of hardware from L3-S1 (retained screw at right S1) laminectomy of L1/L2 and L2/L3 posterior fusion of L1 through S1, repair of durotomy and cage placement L2-L3 Cont IV ceftriaxone as per ID Cultures remain negative WBC sightly elevated Check WBC in am DC planning to STR Urine culture (+) for yeast Code(s): M54.9 - DORSALGIA, UNSPECIFIED (3) Acute on chronic diastolic (congestive) heart failure Assessment/Plan: Cont PO lasix Code(s): I50.33 - ACUTE ON CHRONIC DIASTOLIC (CONGESTIVE) HEART FAILURE (4) Afib Assessment/Plan: Cont eliquis Monitor H/H Heart rate controlled Code(s): I48.91 - UNSPECIFIED ATRIAL FIBRILLATION (5) Anemia Assessment/Plan: Acute blood loss anemia S/P blood transfusions Monitor H/H Code(s): D64.9 - ANEMIA, UNSPECIFIED (6) CAD (coronary artery disease) Assessment/Plan: Plavix was stopped Cont asa Pt had been on it for a yr s/p stent placement Code(s): I25.10 - ATHSCL HEART DISEASE OF [place] CORONARY ARTERY W/O ANG PCTRS Qualifiers: Coronary Disease-Associated Artery/Lesion type: [place] artery [place] vs. transplanted heart: [place] heart Associated angina: without angina Qualified Code(s): I25.10 - Atherosclerotic heart disease of [place] coronary artery without angina pectoris (7) GERD (gastroesophageal reflux disease) Code(s): K21.9 - GASTRO-ESOPHAGEAL REFLUX DISEASE WITHOUT ESOPHAGITIS (8) HLD (hyperlipidemia) Code(s): E78.5 - HYPERLIPIDEMIA, UNSPECIFIED (9) HTN (hypertension) Code(s): I10 - ESSENTIAL (PRIMARY) HYPERTENSION Qualifiers: Hypertension type: essential hypertension Qualified Code(s): I10 - Essential (primary) hypertension (10) Hx of heart artery stent Code(s): Z95.5 - PRESENCE OF CORONARY ANGIOPLASTY IMPLANT AND GRAFT (11) COPD (chronic obstructive pulmonary disease) Assessment/Plan: Cont inhalers Code(s): J44.9 - CHRONIC OBSTRUCTIVE PULMONARY DISEASE, UNSPECIFIED
[2019-01-05] MEDS ORDERED: PIPERACILLIN/TAZOBACTAM 3.375 GM VIAL IVPB ONE ×3 (01:44→16:57)
[2019-01-05] MEDS ORDERED: DEXTROSE 5%-WATER - 50 ML IVPB ONE ×3 (01:44→16:57)
[2019-01-05] MEDS: PIPERACILLIN/TAZOB 3.375 GM 3.375 GM in DEXTROSE 5%-WATER - 50 ML IVPB SCH ×3 (01:59→17:37)
[2019-01-05] MEDS ORDERED: MORPHINE SULFATE 2 MG/ML VIAL IVPUSH ONE (05:15)
[2019-01-05] MEDS: GABAPENTIN 300 MG CAPSULE (FP) PO SCH ×3 (05:40→22:15)
[2019-01-05] MEDS: DOCUSATE SODIUM 100 MG CAPSULE (FP) PO SCH ×3 (05:40→22:14)
[2019-01-05] MEDS: oxyCODONE HCL 5 MG TABLET PO PRN ×3 (07:56→20:05)
[2019-01-05] MEDS: ACETAMINOPHEN 325 MG TABLET (FP) PO PRN ×5 (07:59→22:22)
[2019-01-05 08:11] LABS: BASO % 0.5 % (0-2.0); EOS % 5.1 % (0-4.5); HEMATOCRIT 26.5 % (35.4-49); HEMOGLOBIN 9.1 GM/dL (11.7-16.9); LYMPH % 11.8 % (8-40); MCH 32.2 pg (25.7-33.7); MCHC 34.4 g/dl (32.0-35.9); MEAN CELL VOLUME 93.8 fl (80-96); MEAN PLT VOLUME 6.7 fl (7.5-11.1); MONO % 8.7 % (3.8-10.2); NEUT % 73.9 % (42.8-82.8); PLATELET COUNT 863 K/MM3 (134-434); RBC 2.82 M/mm3 (4.00-5.60); RDW 17.6 % (11.9-15.9); WHITE BLOOD COUNT 14.4 K/mm3 (4.0-10.0)
--- NOTE | 2019-01-05 08:24 | PN ---
Progress Note (short form) - Note Progress Note: Surgery POD #15 C2-T1 PCDF and L1-S1 PLIF, seen and examined at bedside. Pt continues to complain of a lot of lower back pain but it is being managed with pain medications. He has had limited PT 2/2 pain blocking. He still has a cintron. He is tolerating his diet and denies any CP, N/V, Fever or chills. 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 c/D/I with sarah and dermabond. surrounding tissue intact with no tracking erythema, edema or evidence of collection or d/c. Lumbar spine incision c/d/I with sarah and dermabond, surrounding tissue intact with no tracking erythema, edema or evidence of collection or active d/c B/L LE Compartments soft, supple and non-tender to palpation. Problem List - Problems (1) S/P lumbar fusion Assessment/Plan: POD #15 with UTI and right LL pneumonia. Pain continues to improve will need aggressive PT. 1) OOB with PT, up to chair for meals. 2) DVT prophylaxis per cardiology 3) Encourage daily IS, pulmonary toilet 4) Pain control per pain mngt 5) C-collar and TLSO brace as ordered 6) Abx per ID 7) D/c planning to rehab Evaluation and plan discussed with Dr Taylor Code(s): Z98.1 - ARTHRODESIS STATUS
--- NOTE | 2019-01-05 09:12 | PN ---
Progress Note, Physician Chief Complaint: s/p 1 U PRBCs Denies CP or SOB Pain is improved No bowel movement for 7 days History of Present Illness: TELE: rate controlled AF w/ rare VPCs - Current Medication List Current Medications: Active Medications Acetaminophen (Tylenol -) 650 mg PO Q6H PRN PRN Reason: PAIN LEVEL 1-3 Last Admin: 01/05/19 07:59 Dose: 650 mg Acetaminophen (Tylenol -) 650 mg PO Q8H PRN PRN Reason: PAIN SCALE 7-10 Last Admin: 01/04/19 12:20 Dose: 650 mg Apixaban (Eliquis -) 5 mg PO BID [facility] Last Admin: 01/04/19 21:15 Dose: 5 mg Aspirin (Ecotrin -) 81 mg PO DAILY [facility] Last Admin: 01/04/19 10:13 Dose: 81 mg Benzocaine/Menthol (Cepacol Lozenge -) 1 each MM PRN PRN PRN Reason: SORE THROAT Docusate Sodium (Colace -) 100 mg PO TID [facility] Last Admin: 01/05/19 05:40 Dose: 100 mg Furosemide (Lasix -) 40 mg PO DAILY [facility] Last Admin: 01/04/19 10:13 Dose: 40 mg Gabapentin (Neurontin -) 300 mg PO TID [facility] Last Admin: 01/05/19 05:40 Dose: 300 mg Piperacillin Sod/Tazobactam (Sod 3.375 gm/ Dextrose) 50 mls @ 100 mls/hr IVPB Q8H-IV [facility]; Protocol Last Admin: 01/05/19 01:59 Dose: 100 mls/hr Metoprolol Tartrate (Lopressor -) 25 mg NGT BID [facility] Last Admin: 01/04/19 21:15 Dose: 25 mg Ondansetron HCl (Zofran Injection) 4 mg IVPUSH Q6H PRN PRN Reason: NAUSEA Oxycodone HCl (Roxicodone -) 10 mg PO Q6H PRN PRN Reason: PAIN SCALE 7-10 Last Admin: 01/05/19 07:56 Dose: 10 mg Pantoprazole Sodium (Protonix -) 40 mg PO DAILY [facility] Last Admin: 01/04/19 10:14 Dose: 40 mg - Objective Vital Signs: Vital Signs Temperature 98.6 F 01/05/19 05:00 Pulse Rate 79 01/05/19 05:00 Respiratory Rate 20 01/05/19 05:00 Blood Pressure 87/87 L 01/05/19 05:00 O2 Sat by Pulse Oximetry (%) 100 01/04/19 21:00 Constitutional: Yes: No Distress Cardiovascular: Yes: Pulse Irregular Respiratory: Yes: Rhonchi, Other (slight decreased breath sounds at bases. No wheezing.) Gastrointestinal: Yes: Soft Edema: No (venodynes in place) Neurological: Yes: Alert, Oriented Labs: CBC, BMP 01/05/19 06:50 01/03/19 06:00 INR, PTT INR 1.55 (0.83-1.09) H 12/29/18 05:30 Laboratory Tests 01/03/19 01/05/19 06:00 06:50 WBC 14.4 H Hgb 9.1 L Hct 26.5 L Plt Count 863 H Sodium 138 Potassium 4.0 - ....Imaging X-ray: Image Reviewed Problem List - Problems (1) Back pain Code(s): M54.9 - DORSALGIA, UNSPECIFIED (2) Paroxysmal atrial fibrillation Code(s): I48.0 - PAROXYSMAL ATRIAL FIBRILLATION (3) CAD (coronary artery disease) Code(s): I25.10 - ATHSCL HEART DISEASE OF [place] CORONARY ARTERY W/O ANG PCTRS Qualifiers: Coronary Disease-Associated Artery/Lesion type: [place] artery [place] vs. transplanted heart: [place] heart Associated angina: without angina Qualified Code(s): I25.10 - Atherosclerotic heart disease of [place] coronary artery without angina pectoris (4) Hx of heart artery stent Code(s): Z95.5 - PRESENCE OF CORONARY ANGIOPLASTY IMPLANT AND GRAFT (5) HTN (hypertension) Code(s): I10 - ESSENTIAL (PRIMARY) HYPERTENSION Qualifiers: Hypertension type: essential hypertension Qualified Code(s): I10 - Essential (primary) hypertension (6) Pulmonary hypertension Code(s): I27.20 - PULMONARY HYPERTENSION, UNSPECIFIED (7) Anticoagulation management encounter Code(s): Z51.81 - ENCOUNTER FOR THERAPEUTIC DRUG LEVEL MONITORING; Z79.01 - DETENTION (CURRENT) USE OF ANTICOAGULANTS Assessment/Plan IMP: 1. Intractable neck pain, cervical and lumbar disc disease s/p Removal of hardware from C2-C7, laminectomy C2-T1 with posterior fusion of C2-T1. removal of hardware from L3-S1(retained screw at Right S1) laminectomy of L1/L2 and L2/L3 posterior fusion of L1 thru S1, repair of durotomy and cage placment L2-L3 2. PHTN, chronic 3. CAD s/p PCI 4. Permanent AF 5. Acute on chronic diastolic CHF 6. Moderate MR 7. Post op fever: cultures negative. 8. Anemia 9. Thrombocytosis REC: 1. Continue abx as per ID for suspected PNA. 2. Blood cultures remain negative; ID following. 3. H/H improved s/p 1UPRBCs; check stool for occult blood. 4. Transitioned back to oral AC. 6. Continue B-[place] for rate control. 8. ASA has been resumed (prior coronary PCI) 9. Start PPI. 10. Elevated platelets: likely reactive, continue to climb. Heme consult. 11. Bowel regimen
[2019-01-05] MEDS ORDERED: SENNOSIDES 8.6MG TABLET (FP) PO PRN (09:14)
[2019-01-05] MEDS: ASPIRIN COATED 81 MG TABLET.EC PO SCH (10:39)
[2019-01-05] MEDS: FUROSEMIDE 40 MG TABLET (FP) PO SCH (10:39)
[2019-01-05] MEDS: APIXABAN 5 MG TABLET PO SCH ×2 (10:39→22:15)
[2019-01-05] MEDS: METOPROLOL TARTRATE 25 MG TABLET (FP) NGT SCH ×2 (10:39→22:15)
[2019-01-05] MEDS: PANTOPRAZOLE 40 MG TABLET (FP) PO SCH (10:39)
--- NOTE | 2019-01-05 11:24 | PN ---
Progress Note, Physician History of Present Illness: pulmonary alert,c/o back pain,mild dyspnea secondary to pain - Current Medication List Current Medications: Active Medications Acetaminophen (Tylenol -) 650 mg PO Q6H PRN PRN Reason: PAIN LEVEL 1-3 Last Admin: 01/05/19 07:59 Dose: 650 mg Acetaminophen (Tylenol -) 650 mg PO Q8H PRN PRN Reason: PAIN SCALE 7-10 Last Admin: 01/05/19 10:42 Dose: 650 mg Apixaban (Eliquis -) 5 mg PO BID [facility] Last Admin: 01/05/19 10:39 Dose: 5 mg Aspirin (Ecotrin -) 81 mg PO DAILY [facility] Last Admin: 01/05/19 10:39 Dose: 81 mg Benzocaine/Menthol (Cepacol Lozenge -) 1 each MM PRN PRN PRN Reason: SORE THROAT Docusate Sodium (Colace -) 100 mg PO TID [facility] Last Admin: 01/05/19 05:40 Dose: 100 mg Furosemide (Lasix -) 40 mg PO DAILY [facility] Last Admin: 01/05/19 10:39 Dose: 40 mg Gabapentin (Neurontin -) 300 mg PO TID [facility] Last Admin: 01/05/19 05:40 Dose: 300 mg Piperacillin Sod/Tazobactam (Sod 3.375 gm/ Dextrose) 50 mls @ 100 mls/hr IVPB Q8H-IV [facility]; Protocol Last Admin: 01/05/19 10:40 Dose: 100 mls/hr Metoprolol Tartrate (Lopressor -) 25 mg NGT BID [facility] Last Admin: 01/05/19 10:39 Dose: 25 mg Ondansetron HCl (Zofran Injection) 4 mg IVPUSH Q6H PRN PRN Reason: NAUSEA Oxycodone HCl (Roxicodone -) 10 mg PO Q6H PRN PRN Reason: PAIN SCALE 7-10 Last Admin: 01/05/19 07:56 Dose: 10 mg Pantoprazole Sodium (Protonix -) 40 mg PO DAILY [facility] Last Admin: 01/05/19 10:39 Dose: 40 mg Senna (Senna -) 2 tab PO HS PRN PRN Reason: CONSTIPATION Last Admin: 01/05/19 10:39 Dose: 2 tab - Objective Vital Signs: Vital Signs Temperature 98.6 F 01/05/19 05:00 Pulse Rate 79 01/05/19 05:00 Respiratory Rate 20 01/05/19 05:00 Blood Pressure 87/87 L 01/05/19 05:00 O2 Sat by Pulse Oximetry (%) 100 01/04/19 21:00 Constitutional: Yes: Well Nourished, Calm Eyes: Yes: WNL HENT: Yes: WNL Neck: Yes: WNL Cardiovascular: Yes: Pulse Irregular, S1, S2 Respiratory: Yes: Rhonchi (few rhonchi) Gastrointestinal: Yes: Normal Bowel Sounds, Soft Extremities: Yes: WNL Edema: No Labs: CBC, BMP 01/05/19 06:50 01/03/19 06:00 INR, PTT INR 1.55 (0.83-1.09) H 12/29/18 05:30 Problem List - Problems (1) Respiratory failure Code(s): J96.90 - RESPIRATORY FAILURE, UNSP, UNSP W HYPOXIA OR HYPERCAPNIA (2) Afib Code(s): I48.91 - UNSPECIFIED ATRIAL FIBRILLATION (3) Cervical myelopathy Code(s): G95.9 - DISEASE OF SPINAL CORD, UNSPECIFIED (4) Pulmonary hypertension Code(s): I27.20 - PULMONARY HYPERTENSION, UNSPECIFIED (5) Acute on chronic diastolic (congestive) heart failure Code(s): I50.33 - ACUTE ON CHRONIC DIASTOLIC (CONGESTIVE) HEART FAILURE (6) Acute renal failure Code(s): N17.9 - ACUTE KIDNEY FAILURE, UNSPECIFIED (7) Anemia Code(s): D64.9 - ANEMIA, UNSPECIFIED (8) CAD (coronary artery disease) Code(s): I25.10 - ATHSCL HEART DISEASE OF [place] CORONARY ARTERY W/O ANG PCTRS Qualifiers: Coronary Disease-Associated Artery/Lesion type: [place] artery [place] vs. transplanted heart: [place] heart Associated angina: without angina Qualified Code(s): I25.10 - Atherosclerotic heart disease of [place] coronary artery without angina pectoris (9) COPD (chronic obstructive pulmonary disease) Code(s): J44.9 - CHRONIC OBSTRUCTIVE PULMONARY DISEASE, UNSPECIFIED (10) HLD (hyperlipidemia) Code(s): E78.5 - HYPERLIPIDEMIA, UNSPECIFIED (11) HTN (hypertension) Code(s): I10 - ESSENTIAL (PRIMARY) HYPERTENSION Qualifiers: Hypertension type: essential hypertension Qualified Code(s): I10 - Essential (primary) hypertension (12) Hx of heart artery stent Code(s): Z95.5 - PRESENCE OF CORONARY ANGIOPLASTY IMPLANT AND GRAFT Assessment/Plan ASSESSMENT AND PLAN: s/p CHELE C2-T1/L3-S1/Laminectomy/L1-S1 Posterior Fusion/Cage Placement/Durotomy repair S/P Acute Respiratory Failure Acute Blood Loss Anemia CAD Atrial Fibrillation Acute on Chronic Diastolic Heart Failure Volume Overload improving Pneumonia UTI COPD Rheumatoid Arthritis HTN Hyperlipidemia h/o Prostate Ca - lasix - monitor urine output, creatinine - monitor lytes - antibiotics - rate control - continue anticoagulation - aspiration precautions - DVT/GI prophylaxis DR MUNOZ
--- NOTE | 2019-01-05 16:20 | CONSULT ---
Consultation: REQUESTING PROVIDER: Dr. Gant CONSULT REQUEST: We have been asked to medically evaluate this patient for Thrombocytosis HISTORY OF PRESENT ILLNESS: 73 year old male with a history of afib on eliquis, CHF, COPD, GERD, RA, prostate CA (local) in 2007 (was on leupron), sent in for spine surgery on 12/18. Had prolonged surgery with significant blood loss and prolonged ICU stay complicated by volume overload and respiratory compromise requiring intubation. Extubated last week. Overall transfused 7U PRBCs this admission. Heme consulted for rising platelets since 12/29. Currently at 863. Patient states that he has pain but significantly improved and is controlled on medications. Denies fevers or chills, chest pain or shortness of breath. Denies dysuria or cough. REVIEW OF SYSTEMS: CONSTITUTIONAL: Absent: fever, chills, diaphoresis, generalized weakness, malaise, loss of appetite, weight change HEENT: Absent: rhinorrhea, nasal congestion, throat pain, throat swelling, difficulty swallowing, mouth swelling, ear pain, eye pain, visual changes CARDIOVASCULAR: Absent: chest pain, syncope, palpitations, irregular heart rate, lightheadedness , peripheral edema RESPIRATORY: Absent: cough, shortness of breath, dyspnea with exertion, orthopnea, wheezing, stridor, hemoptysis GASTROINTESTINAL: Absent: abdominal pain, abdominal distension, nausea, vomiting, diarrhea, constipation, melena, hematochezia GENITOURINARY: Absent: dysuria, frequency, urgency, hesitancy, hematuria, flank pain, genital pain MUSCULOSKELETAL: back pain, neck pain, myalgia Absent: arthralgia, joint swelling, SKIN: Absent: rash, itching, pallor HEMATOLOGIC/IMMUNOLOGIC: Absent: easy bleeding, easy bruising, lymphadenopathy, frequent infections ENDOCRINE: Absent: unexplained weight gain, unexplained weight loss, heat intolerance, cold intolerance NEUROLOGIC: Absent: headache, focal weakness or paresthesias, dizziness, unsteady gait, seizure, mental status changes, bladder or bowel incontinence PSYCHIATRIC: Absent: anxiety, depression, suicidal or homicidal ideation, hallucinations. PHYSICAL EXAMINATION Vital Signs - 24 hr 01/04/19 01/04/19 01/04/19 17:00 20:00 21:00 Temperature 97.4 F L 97.8 F Pulse Rate 71 77 Respiratory 20 20 Rate Blood Pressure 99/62 98/54 L O2 Sat by Pulse 100 Oximetry (%) 01/05/19 01/05/19 01/05/19 01:50 05:00 09:00 Temperature 97.6 F 98.6 F 98.9 F Pulse Rate 72 79 80 Respiratory 20 20 20 Rate Blood Pressure 104/54 L 87/87 L 91/53 L O2 Sat by Pulse 96 Oximetry (%) 01/05/19 14:00 Temperature 97.5 F L Pulse Rate 75 Respiratory 20 Rate Blood Pressure 94/55 L O2 Sat by Pulse Oximetry (%) GENERAL: A&Ox3, no acute distress EYES: PERRLA, EOMI ENT: Moist mucus membranes NECK: No JVD LUNGS: CTA, no wheezes HEART: irregularly irregular rate, mild systolic murmur noted on exam ABDOMEN: Soft, nontender, BS present EXTREMITIES: 2+ pulses, no edema. NEUROLOGICAL: Cranial nerves II-XII intact. Laboratory Results - last 24 hr 01/05/19 06:50 WBC 14.4 H RBC 2.82 L Hgb 9.1 L Hct 26.5 L MCV 93.8 MCH 32.2 MCHC 34.4 RDW 17.6 H Plt Count 863 H MPV 6.7 L Absolute Neuts (auto) 10.7 H Neutrophils % 73.9 Lymphocytes % 11.8 Monocytes % 8.7 Eosinophils % 5.1 H Basophils % 0.5 Nucleated RBC % 0 Active Medications Generic Name Dose Route Start Last Admin Trade Name Freq PRN Reason Stop Dose Admin Acetaminophen 650 mg 12/30/18 20:47 01/05/19 13:37 Tylenol - PO 650 mg Q6H PRN Administration PAIN LEVEL 1-3 Acetaminophen 650 mg 01/03/19 17:12 01/05/19 10:42 Tylenol - PO 650 mg Q8H PRN Administration PAIN SCALE 7-10 Apixaban 5 mg 12/30/18 22:00 01/05/19 10:39 Eliquis - PO 5 mg BID [facility] Administration Aspirin 81 mg 12/31/18 10:00 01/05/19 10:39 Ecotrin - PO 81 mg DAILY [facility] Administration Benzocaine/Menthol 1 each 12/30/18 20:47 Cepacol Lozenge - MM PRN PRN SORE THROAT Docusate Sodium 100 mg 01/03/19 22:00 01/05/19 13:34 Colace - PO 100 mg TID [facility] Administration Furosemide 40 mg 01/04/19 10:00 01/05/19 10:39 Lasix - PO 40 mg DAILY [facility] Administration Gabapentin 300 mg 12/30/18 22:00 01/05/19 13:33 Neurontin - PO 300 mg TID [facility] Administration Piperacillin Sod/Tazobactam 50 mls @ 100 mls/hr 01/02/19 10:00 01/05/19 10:40 Sod 3.375 gm/ Dextrose IVPB 100 mls/hr Q8H-IV [facility] Administration Protocol Metoprolol Tartrate 25 mg 12/30/18 22:00 01/05/19 10:39 Lopressor - NGT 25 mg BID [facility] Administration Ondansetron HCl 4 mg 12/30/18 20:47 Zofran Injection IVPUSH Q6H PRN [facility] Oxycodone HCl 10 mg 01/04/19 12:18 01/05/19 13:34 Roxicodone - PO 10 mg Q6H PRN Administration PAIN SCALE 7-10 Pantoprazole Sodium 40 mg 01/04/19 10:00 01/05/19 10:39 Protonix - PO 40 mg DAILY [facility] Administration Senna 2 tab 01/05/19 09:14 01/05/19 10:39 Senna - PO 2 tab HS PRN Administration CONSTIPATION ASSESSMENT/PLAN: 73 year old male with a history of afib on eliquis, CHF, COPD, GERD, RA, prostate CA (local) in 2007 (was on leupron), sent in for spine surgery on 12/18 with prolonged hospital course. We are consulted on thrombocytosis. #Thrombocytosis: first began to manifest 12/29 - 12/30. At this time patient was noted by team to have a possible post-operative infection, for which he was started on antibiotics. This, coupled to the coarse clinical picture post- operatively suggests reactive thrombocytosis -likely this was due to the infection vs acute blood loss post-surgically. Additionally liver damage from hypoperfusion/hypoxia during ICU admission could create a picture of reactive thrombocytosis -would opt to observe without intervention; will not start antiplatelet therapy at this time #Normocytic anemia: came in with high MCV > 100, now normal. Could be due to acute blood loss anemia leading to iron deficiency -would monitor H&H -transfuse to hgb goal of 7 #Constipation -stopped senna -started miralax Dispo: We will continue to follow the patient. Thank you for this consultative opportunity. [place], PGY2 Case Discussed with Dr. Gallegos Visit type - Emergency Visit Emergency Visit: No - New Patient This patient is new to me today: Yes Date on this admission: 01/05/19 - Critical Care Critical Care patient: No
[2019-01-05] MEDS ORDERED: SODIUM PHOSPHATE/NA BIPHOS 133 ML ENEMA RC ONE (19:00)
--- NOTE | 2019-01-05 19:08 | PN ---
Teaching Attending Note Name of Resident: [place] ATTENDING PHYSICIAN STATEMENT I saw and evaluated the patient. I reviewed the resident's note and discussed the case with the resident. I agree with the resident's findings and plan as documented. SUBJECTIVE: Patient seen and examined Review of records reveals that patient presented with normal platelet count and sometime between 12/24 and 12/25 developed fever, leucocytosis , abnormal LFT's and then platelet count began rising to current level of 863K. As initial platelets were normal- speaks against an underlying myeloproliferative disorder , but rather a reactive thrombocytosis. Surgery, bleeding and episode occurring about and around 12/24 or 12/25 likely underlying etiology for reactive thrombocytosis. Despite elevation, no need to treat with antiplatelet therapy at this time. Last Vital Signs Temp Pulse Resp BP Pulse Ox 98.0 F 77 20 112/58 L 96 01/05/19 17:00 01/05/19 17:00 01/05/19 17:00 01/05/19 17:00 01/05/19 09:00 HEENT: KILLIAN, EOM Intact Oropharynx: No thrush, No mucositis CBC, BMP 01/05/19 06:50 01/03/19 06:00 Current Medications Generic Name Dose Route Start Last Admin Trade Name Freq PRN Reason Stop Dose Admin Acetaminophen 650 mg 12/30/18 20:47 01/05/19 13:37 Tylenol - PO 650 mg Q6H PRN Administration PAIN LEVEL 1-3 Acetaminophen 650 mg 01/03/19 17:12 01/05/19 10:42 Tylenol - PO 650 mg Q8H PRN Administration PAIN SCALE 7-10 Apixaban 5 mg 12/30/18 22:00 01/05/19 10:39 Eliquis - PO 5 mg BID BRIDGET Administration Aspirin 81 mg 12/31/18 10:00 01/05/19 10:39 Ecotrin - PO 81 mg DAILY BRIDGET Administration Benzocaine/Menthol 1 each 12/30/18 20:47 Cepacol Lozenge - MM PRN PRN SORE THROAT Docusate Sodium 100 mg 01/03/19 22:00 01/05/19 13:34 Colace - PO 100 mg TID BRIDGET Administration Furosemide 40 mg 01/04/19 10:00 01/05/19 10:39 Lasix - PO 40 mg DAILY BRIDGET Administration Gabapentin 300 mg 12/30/18 22:00 01/05/19 13:33 Neurontin - PO 300 mg TID BRIDGET Administration Piperacillin Sod/Tazobactam 50 mls @ 100 mls/hr 01/02/19 10:00 01/05/19 17:37 Sod 3.375 gm/ Dextrose IVPB 100 mls/hr Q8H-IV BRIDGET Administration Protocol Metoprolol Tartrate 25 mg 12/30/18 22:00 01/05/19 10:39 Lopressor - NGT 25 mg BID BRIDGET Administration Ondansetron HCl 4 mg 12/30/18 20:47 Zofran Injection IVPUSH Q6H PRN NAUSEA Oxycodone HCl 10 mg 01/04/19 12:18 01/05/19 13:34 Roxicodone - PO 10 mg Q6H PRN Administration PAIN SCALE 7-10 Pantoprazole Sodium 40 mg 01/04/19 10:00 01/05/19 10:39 Protonix - PO 40 mg DAILY BRIDGET Administration Polyethylene Glycol 17 gm 01/05/19 22:00 Miralax (For Daily Use) - PO BID [facility] Nodes: Without adenopathy Breasts: Without masses Cor: atrial fib systolic murmur, N Lungs: diminished breath sounds Abd: Soft, Normal bowel sounds, No organomegaly, testes descended, circumcised [place] catheter Ext:No significant edema Skin: No rashes, Integument intact, vitiligo face OBJECTIVE: Impression: Reactive thrombocytosis likely post surgery with bleeding, ,post op complications, with fever, leucocytosis, hypotension, abnormal LFT's occurring on and about 12/24- 12/25. To monitor with out antiplatelet therapy. ASSESSMENT AND PLAN:
[2019-01-05] MEDS: POLYETHYLENE GLYCOL 3350 119 GM BTL PO SCH (22:15)
--- NOTE | 2019-01-05 23:40 | PN ---
Progress Note, Physician - Current Medication List Current Medications: Active Medications Acetaminophen (Tylenol -) 650 mg PO Q6H PRN PRN Reason: PAIN LEVEL 1-3 Last Admin: 01/05/19 20:06 Dose: 650 mg Acetaminophen (Tylenol -) 650 mg PO Q8H PRN PRN Reason: PAIN SCALE 7-10 Last Admin: 01/05/19 22:22 Dose: 650 mg Apixaban (Eliquis -) 5 mg PO BID [facility] Last Admin: 01/05/19 22:15 Dose: 5 mg Aspirin (Ecotrin -) 81 mg PO DAILY [facility] Last Admin: 01/05/19 10:39 Dose: 81 mg Benzocaine/Menthol (Cepacol Lozenge -) 1 each MM PRN PRN PRN Reason: SORE THROAT Docusate Sodium (Colace -) 100 mg PO TID [facility] Last Admin: 01/05/19 22:14 Dose: 100 mg Furosemide (Lasix -) 40 mg PO DAILY [facility] Last Admin: 01/05/19 10:39 Dose: 40 mg Gabapentin (Neurontin -) 300 mg PO TID [facility] Last Admin: 01/05/19 22:15 Dose: 300 mg Piperacillin Sod/Tazobactam (Sod 3.375 gm/ Dextrose) 50 mls @ 100 mls/hr IVPB Q8H-IV [facility]; Protocol Last Admin: 01/05/19 17:37 Dose: 100 mls/hr Metoprolol Tartrate (Lopressor -) 25 mg NGT BID [facility] Last Admin: 01/05/19 22:15 Dose: 25 mg Ondansetron HCl (Zofran Injection) 4 mg IVPUSH Q6H PRN PRN Reason: NAUSEA Oxycodone HCl (Roxicodone -) 10 mg PO Q6H PRN PRN Reason: PAIN SCALE 7-10 Last Admin: 01/05/19 20:05 Dose: 10 mg Pantoprazole Sodium (Protonix -) 40 mg PO DAILY [facility] Last Admin: 01/05/19 10:39 Dose: 40 mg Polyethylene Glycol (Miralax (For Daily Use) -) 17 gm PO BID [facility] Last Admin: 01/05/19 22:15 Dose: 17 grams - Objective Vital Signs: Vital Signs Temperature 98.8 F 01/05/19 21:00 Pulse Rate 76 01/05/19 21:00 Respiratory Rate 20 01/05/19 21:00 Blood Pressure 115/56 L 01/05/19 21:00 O2 Sat by Pulse Oximetry (%) 96 01/05/19 21:00 Labs: CBC, BMP 01/05/19 06:50 01/03/19 06:00 INR, PTT INR 1.55 (0.83-1.09) H 12/29/18 05:30 Problem List - Problems (1) Pneumonia Code(s): J18.9 - PNEUMONIA, UNSPECIFIED ORGANISM (2) Back pain Code(s): M54.9 - DORSALGIA, UNSPECIFIED (3) Acute on chronic diastolic (congestive) heart failure Code(s): I50.33 - ACUTE ON CHRONIC DIASTOLIC (CONGESTIVE) HEART FAILURE (4) Afib Code(s): I48.91 - UNSPECIFIED ATRIAL FIBRILLATION (5) Anemia Code(s): D64.9 - ANEMIA, UNSPECIFIED (6) CAD (coronary artery disease) Code(s): I25.10 - ATHSCL HEART DISEASE OF [place] CORONARY ARTERY W/O ANG PCTRS Qualifiers: Coronary Disease-Associated Artery/Lesion type: [place] artery [place] vs. transplanted heart: [place] heart Associated angina: without angina Qualified Code(s): I25.10 - Atherosclerotic heart disease of [place] coronary artery without angina pectoris (7) GERD (gastroesophageal reflux disease) Code(s): K21.9 - GASTRO-ESOPHAGEAL REFLUX DISEASE WITHOUT ESOPHAGITIS (8) HLD (hyperlipidemia) Code(s): E78.5 - HYPERLIPIDEMIA, UNSPECIFIED (9) HTN (hypertension) Code(s): I10 - ESSENTIAL (PRIMARY) HYPERTENSION Qualifiers: Hypertension type: essential hypertension Qualified Code(s): I10 - Essential (primary) hypertension (10) Hx of heart artery stent Code(s): Z95.5 - PRESENCE OF CORONARY ANGIOPLASTY IMPLANT AND GRAFT (11) COPD (chronic obstructive pulmonary disease) Code(s): J44.9 - CHRONIC OBSTRUCTIVE PULMONARY DISEASE, UNSPECIFIED
[2019-01-06] MEDS ORDERED: PIPERACILLIN/TAZOBACTAM 3.375 GM VIAL IVPB ONE ×3 (01:35→17:08)
[2019-01-06] MEDS ORDERED: DEXTROSE 5%-WATER - 50 ML IVPB ONE ×3 (01:35→17:08)
[2019-01-06] MEDS: oxyCODONE HCL 5 MG TABLET PO PRN ×3 (01:51→17:05)
[2019-01-06] MEDS: PIPERACILLIN/TAZOB 3.375 GM 3.375 GM in DEXTROSE 5%-WATER - 50 ML IVPB SCH ×3 (01:51→17:10)
[2019-01-06] MEDS: GABAPENTIN 300 MG CAPSULE (FP) PO SCH ×3 (07:03→21:36)
[2019-01-06] MEDS: DOCUSATE SODIUM 100 MG CAPSULE (FP) PO SCH ×3 (07:03→21:36)
--- NOTE | 2019-01-06 08:44 | PN ---
Progress Note, Physician Chief Complaint: seen and examined No CP or SOB - Current Medication List Current Medications: Active Medications Acetaminophen (Tylenol -) 650 mg PO Q6H PRN PRN Reason: PAIN LEVEL 1-3 Last Admin: 01/05/19 20:06 Dose: 650 mg Acetaminophen (Tylenol -) 650 mg PO Q8H PRN PRN Reason: PAIN SCALE 7-10 Last Admin: 01/05/19 22:22 Dose: 650 mg Apixaban (Eliquis -) 5 mg PO BID [facility] Last Admin: 01/05/19 22:15 Dose: 5 mg Aspirin (Ecotrin -) 81 mg PO DAILY [facility] Last Admin: 01/05/19 10:39 Dose: 81 mg Benzocaine/Menthol (Cepacol Lozenge -) 1 each MM PRN PRN PRN Reason: SORE THROAT Docusate Sodium (Colace -) 100 mg PO TID [facility] Last Admin: 01/06/19 07:03 Dose: 100 mg Furosemide (Lasix -) 40 mg PO DAILY [facility] Last Admin: 01/05/19 10:39 Dose: 40 mg Gabapentin (Neurontin -) 300 mg PO TID [facility] Last Admin: 01/06/19 07:03 Dose: 300 mg Piperacillin Sod/Tazobactam (Sod 3.375 gm/ Dextrose) 50 mls @ 100 mls/hr IVPB Q8H-IV [facility]; Protocol Last Admin: 01/06/19 01:51 Dose: 100 mls/hr Metoprolol Tartrate (Lopressor -) 25 mg NGT BID [facility] Last Admin: 01/05/19 22:15 Dose: 25 mg Ondansetron HCl (Zofran Injection) 4 mg IVPUSH Q6H PRN PRN Reason: NAUSEA Oxycodone HCl (Roxicodone -) 10 mg PO Q6H PRN PRN Reason: PAIN SCALE 7-10 Last Admin: 01/06/19 07:53 Dose: 10 mg Pantoprazole Sodium (Protonix -) 40 mg PO DAILY [facility] Last Admin: 01/05/19 10:39 Dose: 40 mg Polyethylene Glycol (Miralax (For Daily Use) -) 17 gm PO BID [facility] Last Admin: 01/05/19 22:15 Dose: 17 grams - Objective Vital Signs: Vital Signs Temperature 98.5 F 01/06/19 06:00 Pulse Rate 79 01/06/19 06:00 Respiratory Rate 20 01/06/19 06:00 Blood Pressure 103/55 L 01/06/19 06:00 O2 Sat by Pulse Oximetry (%) 96 01/05/19 21:00 Constitutional: Yes: No Distress Cardiovascular: Yes: Pulse Irregular Respiratory: Yes: CTA Bilaterally Gastrointestinal: Yes: Soft Edema: No Neurological: Yes: Alert Labs: CBC, BMP 01/05/19 06:50 01/03/19 06:00 INR, PTT INR 1.55 (0.83-1.09) H 12/29/18 05:30 Laboratory Tests 01/03/19 01/05/19 06:00 06:50 WBC 14.4 H Hgb 9.1 L Plt Count 863 H Potassium 4.0 BUN 31 H Creatinine 1.0 Problem List - Problems (1) Back pain Code(s): M54.9 - DORSALGIA, UNSPECIFIED (2) Paroxysmal atrial fibrillation Code(s): I48.0 - PAROXYSMAL ATRIAL FIBRILLATION (3) CAD (coronary artery disease) Code(s): I25.10 - ATHSCL HEART DISEASE OF [place] CORONARY ARTERY W/O ANG PCTRS Qualifiers: Coronary Disease-Associated Artery/Lesion type: [place] artery [place] vs. transplanted heart: [place] heart Associated angina: without angina Qualified Code(s): I25.10 - Atherosclerotic heart disease of [place] coronary artery without angina pectoris (4) Hx of heart artery stent Code(s): Z95.5 - PRESENCE OF CORONARY ANGIOPLASTY IMPLANT AND GRAFT (5) HTN (hypertension) Code(s): I10 - ESSENTIAL (PRIMARY) HYPERTENSION Qualifiers: Hypertension type: essential hypertension Qualified Code(s): I10 - Essential (primary) hypertension (6) Pulmonary hypertension Code(s): I27.20 - PULMONARY HYPERTENSION, UNSPECIFIED (7) Anticoagulation management encounter Code(s): Z51.81 - ENCOUNTER FOR THERAPEUTIC DRUG LEVEL MONITORING; 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 Intractable neck pain, cervical and lumbar disc disease s/p Removal of hardware from C2-C7, laminectomy C2-T1 with posterior fusion of C2-T1. removal of hardware from L3-S1(retained screw at Right S1) laminectomy of L1/L2 and L2/L3 posterior fusion of L1 thru S1, repair of durotomy and cage placment L2-L3 2. PHTN, chronic 3. CAD s/p PCI 4. Permanent AF 5. Acute on chronic diastolic CHF 6. Moderate MR 7. Post op fever: cultures negative. 8. Anemia 9. Thrombocytosis REC: 1. Continue abx as per ID for suspected PNA. 2. Blood cultures remain negative; ID following. 3. H/H improved s/p 1UPRBCs; check stool for occult blood. 4. Transitioned back to oral AC. 6. Continue B-[place] for rate control. 8. ASA has been resumed (prior coronary PCI) 9. Start PPI. 10. Elevated platelets: likely reactive, continue to climb. Heme consult appreciated 11. Bowel regimen
[2019-01-06] MEDS: METOPROLOL TARTRATE 25 MG TABLET (FP) NGT SCH ×2 (09:14→21:36)
[2019-01-06] MEDS: FUROSEMIDE 40 MG TABLET (FP) PO SCH (09:14)
[2019-01-06] MEDS: ASPIRIN COATED 81 MG TABLET.EC PO SCH (09:15)
[2019-01-06] MEDS: APIXABAN 5 MG TABLET PO SCH ×2 (09:15→21:37)
[2019-01-06] MEDS: PANTOPRAZOLE 40 MG TABLET (FP) PO SCH (09:15)
[2019-01-06] MEDS: POLYETHYLENE GLYCOL 3350 119 GM BTL PO SCH ×2 (09:17→21:37)
--- NOTE | 2019-01-06 12:17 | PN ---
Progress Note, HEALTH TECHNICIAN - Note Progress Note: Selected Entries 01/05/19 01/05/19 01/05/19 01:50 05:00 09:00 Breakfast Lunch Supper Temperature 97.6 F 98.6 F 98.9 F 01/05/19 01/05/19 01/05/19 14:00 17:00 19:04 Breakfast 75% Lunch 50% Supper 50% Temperature 97.5 F L 98.0 F 01/05/19 01/06/19 01/06/19 21:00 01:23 02:00 Breakfast Lunch Supper Temperature 98.8 F 97.6 F 97.6 F 01/06/19 01/06/19 01/06/19 06:00 10:00 11:55 Breakfast 50% Lunch Supper Temperature 98.5 F 98.1 F Laboratory Tests 01/02/19 01/05/19 05:30 06:50 WBC 12.4 H 14.4 H Looking better. Overtly tolerating diet. Pt needs intensive rehab; accepted at [facility]. Would benefit from FEESST exam at [facility]. Limited appetite. Voice improving. Receiving thin water with good tolerance. Consider upgrade to Dys chopped/tuna/egg salad Thin water liquid trials Monitor tolerancwe
--- NOTE | 2019-01-06 12:47 | PN ---
Progress Note, Physician History of Present Illness: AWAKE, ALERT LESS NECK PAIN + CONGESTION, COUGH NO C/O CHEST PAIN, DYSPNEA AFEBRILE WBC REMAINS ELEVATED CXR INCREASED MARKINGS RLL - Current Medication List Current Medications: Active Medications Acetaminophen (Tylenol -) 650 mg PO Q6H PRN PRN Reason: PAIN LEVEL 1-3 Last Admin: 01/05/19 20:06 Dose: 650 mg Acetaminophen (Tylenol -) 650 mg PO Q8H PRN PRN Reason: PAIN SCALE 7-10 Last Admin: 01/05/19 22:22 Dose: 650 mg Apixaban (Eliquis -) 5 mg PO BID [facility] Last Admin: 01/06/19 09:15 Dose: 5 mg Aspirin (Ecotrin -) 81 mg PO DAILY [facility] Last Admin: 01/06/19 09:15 Dose: 81 mg Benzocaine/Menthol (Cepacol Lozenge -) 1 each MM PRN PRN PRN Reason: SORE THROAT Docusate Sodium (Colace -) 100 mg PO TID [facility] Last Admin: 01/06/19 07:03 Dose: 100 mg Furosemide (Lasix -) 40 mg PO DAILY [facility] Last Admin: 01/06/19 09:14 Dose: 40 mg Gabapentin (Neurontin -) 300 mg PO TID [facility] Last Admin: 01/06/19 07:03 Dose: 300 mg Piperacillin Sod/Tazobactam (Sod 3.375 gm/ Dextrose) 50 mls @ 100 mls/hr IVPB Q8H-IV [facility]; Protocol Last Admin: 01/06/19 09:15 Dose: 100 mls/hr Metoprolol Tartrate (Lopressor -) 25 mg NGT BID [facility] Last Admin: 01/06/19 09:14 Dose: 25 mg Ondansetron HCl (Zofran Injection) 4 mg IVPUSH Q6H PRN PRN Reason: NAUSEA Oxycodone HCl (Roxicodone -) 10 mg PO Q6H PRN PRN Reason: PAIN SCALE 7-10 Last Admin: 01/06/19 07:53 Dose: 10 mg Pantoprazole Sodium (Protonix -) 40 mg PO DAILY [facility] Last Admin: 01/06/19 09:15 Dose: 40 mg Polyethylene Glycol (Miralax (For Daily Use) -) 17 gm PO BID [facility] Last Admin: 01/06/19 09:17 Dose: 17 grams - Objective Vital Signs: Vital Signs Temperature 98.1 F 01/06/19 10:00 Pulse Rate 70 01/06/19 10:00 Respiratory Rate 20 01/06/19 10:00 Blood Pressure 137/80 01/06/19 10:00 O2 Sat by Pulse Oximetry (%) 98 01/06/19 09:00 Constitutional: Yes: No Distress Eyes: Yes: Conjunctiva Clear Cardiovascular: Yes: Regular Rate and Rhythm, S1, S2 Respiratory: Yes: CTA Bilaterally Gastrointestinal: Yes: Normal Bowel Sounds, Soft. No: Tenderness Labs: CBC, BMP 01/05/19 06:50 01/03/19 06:00 INR, PTT INR 1.55 (0.83-1.09) H 12/29/18 05:30 Assessment/Plan RLL PNEUMONIA POST OP SPINAL SURGERY CONTINUE ANTIBIOTIC COVERAGE. NOSOCOMIAL RESP TRACT PATHOGENS
--- NOTE | 2019-01-06 15:29 | PN ---
Progress Note (short form) - Note Progress Note: PULMONARY Denies shortness of breath, cough or wheezing. Vital Signs Period Temp Pulse Resp BP Sys/Dyson Pulse Ox Last 24 Hr 97.6 F-98.8 F 70-79 20-20 103-137/55-80 96-98 Gen: NAD at rest Heart: RRR Lung: decreased breath sounds at the bases Abd: soft, nontender Ext: no edema CBC, BMP 01/05/19 06:50 01/03/19 06:00 Active Medications Acetaminophen (Tylenol -) 650 mg PO Q6H PRN PRN Reason: PAIN LEVEL 1-3 Last Admin: 01/05/19 20:06 Dose: 650 mg Acetaminophen (Tylenol -) 650 mg PO Q8H PRN PRN Reason: PAIN SCALE 7-10 Last Admin: 01/05/19 22:22 Dose: 650 mg Apixaban (Eliquis -) 5 mg PO BID [facility] Last Admin: 01/06/19 09:15 Dose: 5 mg Aspirin (Ecotrin -) 81 mg PO DAILY [facility] Last Admin: 01/06/19 09:15 Dose: 81 mg Benzocaine/Menthol (Cepacol Lozenge -) 1 each MM PRN PRN PRN Reason: SORE THROAT Docusate Sodium (Colace -) 100 mg PO TID [facility] Last Admin: 01/06/19 13:27 Dose: 100 mg Furosemide (Lasix -) 40 mg PO DAILY [facility] Last Admin: 01/06/19 09:14 Dose: 40 mg Gabapentin (Neurontin -) 300 mg PO TID [facility] Last Admin: 01/06/19 13:27 Dose: 300 mg Piperacillin Sod/Tazobactam (Sod 3.375 gm/ Dextrose) 50 mls @ 100 mls/hr IVPB Q8H-IV [facility]; Protocol Last Admin: 01/06/19 09:15 Dose: 100 mls/hr Metoprolol Tartrate (Lopressor -) 25 mg NGT BID [facility] Last Admin: 01/06/19 09:14 Dose: 25 mg Ondansetron HCl (Zofran Injection) 4 mg IVPUSH Q6H PRN PRN Reason: NAUSEA Oxycodone HCl (Roxicodone -) 10 mg PO Q6H PRN PRN Reason: PAIN SCALE 7-10 Last Admin: 01/06/19 07:53 Dose: 10 mg Pantoprazole Sodium (Protonix -) 40 mg PO DAILY [facility] Last Admin: 01/06/19 09:15 Dose: 40 mg Polyethylene Glycol (Miralax (For Daily Use) -) 17 gm PO BID [facility] Last Admin: 01/06/19 09:17 Dose: 17 grams A/P s/p CHELE C2-T1/L3-S1/Laminectomy/L1-S1 Posterior Fusion/Cage Placement/Durotomy repair S/P Acute Respiratory Failure Acute Blood Loss Anemia CAD Atrial Fibrillation Acute on Chronic Diastolic Heart Failure Volume Overload improving Pneumonia UTI COPD Rheumatoid Arthritis HTN Hyperlipidemia h/o Prostate Ca - lasix - monitor urine output, creatinine - monitor lytes - antibiotics per ID - rate control - continue anticoagulation - rehab/PT - DVT/GI prophylaxis
[2019-01-06 17:49] LABS: EPI CELLS 0.7 /HPF (0-5); PH,URINE 6.5 (5.0-8.0); URINE APPEARANCE CLOUDY; URINE BACTERIA 7.5 /hpf (NEGATIVE); URINE BILIRUBIN NEGATIVE (NEGATIVE); URINE CASTS 42 /hpf (0-8); URINE COLOR RED; URINE GLUCOSE (UA) NEGATIVE (NEGATIVE); URINE KETONE NEGATIVE (NEGATIVE); URINE LEUK ESTERASE 3+ (NEGATIVE); URINE NITRITE NEGATIVE (NEGATIVE); URINE PROTEIN 2+ (NEGATIVE); URINE WBC 163 /hpf (0-5)
[2019-01-06 18:00] LABS: URINE RBC 2535.9 /hpf (0-4)
[2019-01-06 18:01] LABS: YEAST MODERATE (NEGATIVE)
[2019-01-07] MEDS: oxyCODONE HCL 5 MG TABLET PO PRN ×4 (00:34→21:39)
[2019-01-07] MEDS ORDERED: PIPERACILLIN/TAZOBACTAM 3.375 GM VIAL IVPB ONE ×3 (01:04→17:14)
[2019-01-07] MEDS ORDERED: DEXTROSE 5%-WATER - 50 ML IVPB ONE ×3 (01:05→17:14)
[2019-01-07] MEDS: PIPERACILLIN/TAZOB 3.375 GM 3.375 GM in DEXTROSE 5%-WATER - 50 ML IVPB SCH ×3 (01:23→18:22)
--- NOTE | 2019-01-07 02:36 | PN ---
Progress Note, Physician History of Present Illness: Pt seen and examined 01/06/19 however note is being entered now - Current Medication List Current Medications: Active Medications Acetaminophen (Tylenol -) 650 mg PO Q6H PRN PRN Reason: PAIN LEVEL 1-3 Last Admin: 01/05/19 20:06 Dose: 650 mg Acetaminophen (Tylenol -) 650 mg PO Q8H PRN PRN Reason: PAIN SCALE 7-10 Last Admin: 01/05/19 22:22 Dose: 650 mg Apixaban (Eliquis -) 5 mg PO BID [facility] Last Admin: 01/06/19 21:37 Dose: 5 mg Aspirin (Ecotrin -) 81 mg PO DAILY [facility] Last Admin: 01/06/19 09:15 Dose: 81 mg Benzocaine/Menthol (Cepacol Lozenge -) 1 each MM PRN PRN PRN Reason: SORE THROAT Docusate Sodium (Colace -) 100 mg PO TID [facility] Last Admin: 01/06/19 21:36 Dose: 100 mg Furosemide (Lasix -) 40 mg PO DAILY [facility] Last Admin: 01/06/19 09:14 Dose: 40 mg Gabapentin (Neurontin -) 300 mg PO TID [facility] Last Admin: 01/06/19 21:36 Dose: 300 mg Piperacillin Sod/Tazobactam (Sod 3.375 gm/ Dextrose) 50 mls @ 100 mls/hr IVPB Q8H-IV [facility]; Protocol Last Admin: 01/07/19 01:23 Dose: 100 mls/hr Metoprolol Tartrate (Lopressor -) 25 mg NGT BID [facility] Last Admin: 01/06/19 21:36 Dose: 25 mg Ondansetron HCl (Zofran Injection) 4 mg IVPUSH Q6H PRN PRN Reason: NAUSEA Oxycodone HCl (Roxicodone -) 10 mg PO Q6H PRN PRN Reason: PAIN SCALE 7-10 Last Admin: 01/07/19 00:34 Dose: 10 mg Pantoprazole Sodium (Protonix -) 40 mg PO DAILY [facility] Last Admin: 01/06/19 09:15 Dose: 40 mg Polyethylene Glycol (Miralax (For Daily Use) -) 17 gm PO BID [facility] Last Admin: 01/06/19 21:37 Dose: 17 grams - Objective Vital Signs: Vital Signs Temperature 98.1 F 01/06/19 20:22 Pulse Rate 82 01/06/19 20:22 Respiratory Rate 18 01/06/19 20:22 Blood Pressure 112/60 01/06/19 20:22 O2 Sat by Pulse Oximetry (%) 98 01/06/19 21:00 Labs: CBC, BMP 01/05/19 06:50 01/03/19 06:00 INR, PTT INR 1.55 (0.83-1.09) H 12/29/18 05:30 Problem List - Problems (1) Pneumonia Code(s): J18.9 - PNEUMONIA, UNSPECIFIED ORGANISM (2) Back pain Code(s): M54.9 - DORSALGIA, UNSPECIFIED (3) Acute on chronic diastolic (congestive) heart failure Code(s): I50.33 - ACUTE ON CHRONIC DIASTOLIC (CONGESTIVE) HEART FAILURE (4) Afib Code(s): I48.91 - UNSPECIFIED ATRIAL FIBRILLATION (5) Anemia Code(s): D64.9 - ANEMIA, UNSPECIFIED (6) CAD (coronary artery disease) Code(s): I25.10 - ATHSCL HEART DISEASE OF [place] CORONARY ARTERY W/O ANG PCTRS Qualifiers: Coronary Disease-Associated Artery/Lesion type: [place] artery [place] vs. transplanted heart: [place] heart Associated angina: without angina Qualified Code(s): I25.10 - Atherosclerotic heart disease of [place] coronary artery without angina pectoris (7) GERD (gastroesophageal reflux disease) Code(s): K21.9 - GASTRO-ESOPHAGEAL REFLUX DISEASE WITHOUT ESOPHAGITIS (8) HLD (hyperlipidemia) Code(s): E78.5 - HYPERLIPIDEMIA, UNSPECIFIED (9) HTN (hypertension) Code(s): I10 - ESSENTIAL (PRIMARY) HYPERTENSION Qualifiers: Hypertension type: essential hypertension Qualified Code(s): I10 - Essential (primary) hypertension (10) Hx of heart artery stent Code(s): Z95.5 - PRESENCE OF CORONARY ANGIOPLASTY IMPLANT AND GRAFT (11) COPD (chronic obstructive pulmonary disease) Code(s): J44.9 - CHRONIC OBSTRUCTIVE PULMONARY DISEASE, UNSPECIFIED
[2019-01-07] MEDS: DOCUSATE SODIUM 100 MG CAPSULE (FP) PO SCH ×4 (05:50→21:34)
[2019-01-07] MEDS: GABAPENTIN 300 MG CAPSULE (FP) PO SCH ×3 (05:50→21:31)
[2019-01-07 08:05] LABS: BASO % 0.3 % (0-2.0); EOS % 2.1 % (0-4.5); HEMATOCRIT 28.9 % (35.4-49); HEMOGLOBIN 9.5 GM/dL (11.7-16.9); LYMPH % 7.5 % (8-40); MCH 30.5 pg (25.7-33.7); MCHC 32.8 g/dl (32.0-35.9); MEAN PLT VOLUME 6.5 fl (7.5-11.1); MONO % 8.1 % (3.8-10.2); PLATELET COUNT 927 K/MM3 (134-434); RDW 17.1 % (11.9-15.9)
[2019-01-07 08:29] LABS: ALBUMIN 2.5 g/dl (3.4-5.0); ALK PHOS 76 U/L (45-117); ANION GAP 7 MMOL/L (8-16); BILIRUBIN,TOTAL 0.6 mg/dL (0.2-1); BLOOD UREA NITROGEN 25 mg/dL (7-18); CALCIUM 9.1 mg/dL (8.5-10.1); CHLORIDE 98 mmol/L (98-107); CO2 32 mmol/L (21-32); GLUCOSE,RANDOM 89 mg/dL (74-106); POTASSIUM 3.5 mmol/L (3.5-5.1); SGOT/AST 17 U/L (15-37); SGPT/ALT 20 U/L (13-61); SODIUM 137 mmol/L (136-145); TOT PROT 5.3 g/dl (6.4-8.2)
--- NOTE | 2019-01-07 08:47 | PN ---
Progress Note, Physician Chief Complaint: seen and examined No distress Had bowel movement Denies CP or SOB Denies palpitations. Took a few steps yesterday. - Current Medication List Current Medications: Active Medications Acetaminophen (Tylenol -) 650 mg PO Q6H PRN PRN Reason: PAIN LEVEL 1-3 Last Admin: 01/05/19 20:06 Dose: 650 mg Acetaminophen (Tylenol -) 650 mg PO Q8H PRN PRN Reason: PAIN SCALE 7-10 Last Admin: 01/05/19 22:22 Dose: 650 mg Apixaban (Eliquis -) 5 mg PO BID [facility] Last Admin: 01/06/19 21:37 Dose: 5 mg Aspirin (Ecotrin -) 81 mg PO DAILY [facility] Last Admin: 01/06/19 09:15 Dose: 81 mg Benzocaine/Menthol (Cepacol Lozenge -) 1 each MM PRN PRN PRN Reason: SORE THROAT Docusate Sodium (Colace -) 100 mg PO TID [facility] Last Admin: 01/07/19 05:50 Dose: 100 mg Furosemide (Lasix -) 40 mg PO DAILY [facility] Last Admin: 01/06/19 09:14 Dose: 40 mg Gabapentin (Neurontin -) 300 mg PO TID [facility] Last Admin: 01/07/19 05:50 Dose: 300 mg Piperacillin Sod/Tazobactam (Sod 3.375 gm/ Dextrose) 50 mls @ 100 mls/hr IVPB Q8H-IV [facility]; Protocol Last Admin: 01/07/19 01:23 Dose: 100 mls/hr Metoprolol Tartrate (Lopressor -) 25 mg NGT BID [facility] Last Admin: 01/06/19 21:36 Dose: 25 mg Ondansetron HCl (Zofran Injection) 4 mg IVPUSH Q6H PRN PRN Reason: NAUSEA Oxycodone HCl (Roxicodone -) 10 mg PO Q6H PRN PRN Reason: PAIN SCALE 7-10 Last Admin: 01/07/19 00:34 Dose: 10 mg Pantoprazole Sodium (Protonix -) 40 mg PO DAILY [facility] Last Admin: 01/06/19 09:15 Dose: 40 mg Polyethylene Glycol (Miralax (For Daily Use) -) 17 gm PO BID [facility] Last Admin: 01/06/19 21:37 Dose: 17 grams - Objective Vital Signs: Vital Signs Temperature 98.3 F 01/07/19 04:00 Pulse Rate 84 01/07/19 04:00 Respiratory Rate 18 01/07/19 04:00 Blood Pressure 115/58 L 01/07/19 04:00 O2 Sat by Pulse Oximetry (%) 98 01/06/19 21:00 Constitutional: Yes: No Distress, Calm Eyes: Yes: Conjunctiva Clear, EOM Intact Cardiovascular: Yes: Pulse Irregular Respiratory: Yes: Other (scattered rhochi; no active wheezing. Slight decreased breath sounds at bases.) Gastrointestinal: Yes: Soft (non-tender) Edema: No (venodynes) Neurological: Yes: Alert, Oriented ...Motor Strength: WNL Labs: CBC, BMP 01/07/19 06:30 01/07/19 06:30 INR, PTT INR 1.55 (0.83-1.09) H 12/29/18 05:30 Laboratory Tests 01/07/19 01/07/19 06:30 06:30 WBC 16.0 H Hgb 9.5 L Hct 28.9 L Plt Count 927 H Sodium 137 Potassium 3.5 BUN 25 H Creatinine 1.0 AST 17 Alkaline Phosphatase 76 Problem List - Problems (1) Back pain Code(s): M54.9 - DORSALGIA, UNSPECIFIED (2) Paroxysmal atrial fibrillation Code(s): I48.0 - PAROXYSMAL ATRIAL FIBRILLATION (3) CAD (coronary artery disease) Code(s): I25.10 - ATHSCL HEART DISEASE OF [place] CORONARY ARTERY W/O ANG PCTRS Qualifiers: Coronary Disease-Associated Artery/Lesion type: [place] artery [place] vs. transplanted heart: [place] heart Associated angina: without angina Qualified Code(s): I25.10 - Atherosclerotic heart disease of [place] coronary artery without angina pectoris (4) Hx of heart artery stent Code(s): Z95.5 - PRESENCE OF CORONARY ANGIOPLASTY IMPLANT AND GRAFT (5) HTN (hypertension) Code(s): I10 - ESSENTIAL (PRIMARY) HYPERTENSION Qualifiers: Hypertension type: essential hypertension Qualified Code(s): I10 - Essential (primary) hypertension (6) Pulmonary hypertension Code(s): I27.20 - PULMONARY HYPERTENSION, UNSPECIFIED (7) Anticoagulation management encounter Code(s): Z51.81 - ENCOUNTER FOR THERAPEUTIC DRUG LEVEL MONITORING; Z79.01 - GROUP HOME (CURRENT) USE OF ANTICOAGULANTS Assessment/Plan IMP: 1. Intractable neck pain, cervical and lumbar disc disease s/p Removal of hardware from C2-C7, laminectomy C2-T1 with posterior fusion of C2-T1. removal of hardware from L3-S1(retained screw at Right S1) laminectomy of L1/L2 and L2/L3 posterior fusion of L1 thru S1, repair of durotomy and cage placment L2-L3 2. PHTN, chronic 3. CAD s/p PCI 4. Permanent AF 5. Acute on chronic diastolic CHF 6. Moderate MR 7. Post op fever: cultures negative. 8. Anemia 9. Thrombocytosis REC: 1. Continue abx as per ID for suspected PNA. 2. Blood cultures remain negative; ID following. 3. H/H stable. 4. Transitioned back to oral AC. 6. Continue B-Augustine for rate control. 8. ASA has been resumed (prior coronary PCI) 9. Continue Lasix 10. Continue PPI for GI prophylaxis 11. Elevated platelets: likely reactive, continue to climb. Heme consult appreciated
[2019-01-07] MEDS: FUROSEMIDE 40 MG TABLET (FP) PO SCH (09:36)
[2019-01-07] MEDS: APIXABAN 5 MG TABLET PO SCH ×2 (09:36→21:32)
[2019-01-07] MEDS: PANTOPRAZOLE 40 MG TABLET (FP) PO SCH (09:37)
[2019-01-07] MEDS: ACETAMINOPHEN 325 MG TABLET (FP) PO PRN ×2 (09:37→15:19)
[2019-01-07] MEDS: ASPIRIN COATED 81 MG TABLET.EC PO SCH (09:37)
[2019-01-07] MEDS: METOPROLOL TARTRATE 25 MG TABLET (FP) NGT SCH ×2 (09:37→21:31)
[2019-01-07] MEDS: POLYETHYLENE GLYCOL 3350 119 GM BTL PO SCH ×2 (09:38→21:32)
--- NOTE | 2019-01-07 10:00 | PN ---
Progress Note (short form) - Note Progress Note: PULMONARY Denies shortness of breath or chest pain. No fevers. Vital Signs Period Temp Pulse Resp BP Sys/Dyson Pulse Ox Last 24 Hr 97.9 F-98.8 F 82-89 18-20 111-115/58-62 98 Gen: NAD at rest Heart: RRR Lung: decreased breath sounds at the bases Abd: soft, nontender Ext: no edema CBC, BMP 01/07/19 06:30 01/07/19 06:30 Active Medications Acetaminophen (Tylenol -) 650 mg PO Q6H PRN PRN Reason: PAIN LEVEL 1-3 Last Admin: 01/05/19 20:06 Dose: 650 mg Acetaminophen (Tylenol -) 650 mg PO Q8H PRN PRN Reason: PAIN SCALE 7-10 Last Admin: 01/07/19 09:37 Dose: 650 mg Apixaban (Eliquis -) 5 mg PO BID [facility] Last Admin: 01/07/19 09:36 Dose: 5 mg Aspirin (Ecotrin -) 81 mg PO DAILY [facility] Last Admin: 01/07/19 09:37 Dose: 81 mg Benzocaine/Menthol (Cepacol Lozenge -) 1 each MM PRN PRN PRN Reason: SORE THROAT Docusate Sodium (Colace -) 100 mg PO TID [facility] Last Admin: 01/07/19 05:50 Dose: 100 mg Furosemide (Lasix -) 40 mg PO DAILY [facility] Last Admin: 01/07/19 09:36 Dose: 40 mg Gabapentin (Neurontin -) 300 mg PO TID [facility] Last Admin: 01/07/19 05:50 Dose: 300 mg Piperacillin Sod/Tazobactam (Sod 3.375 gm/ Dextrose) 50 mls @ 100 mls/hr IVPB Q8H-IV [facility]; Protocol Last Admin: 01/07/19 09:37 Dose: 100 mls/hr Metoprolol Tartrate (Lopressor -) 25 mg NGT BID [facility] Last Admin: 01/07/19 09:37 Dose: 25 mg Ondansetron HCl (Zofran Injection) 4 mg IVPUSH Q6H PRN PRN Reason: NAUSEA Oxycodone HCl (Roxicodone -) 10 mg PO Q6H PRN PRN Reason: PAIN SCALE 7-10 Last Admin: 01/07/19 09:38 Dose: 10 mg Pantoprazole Sodium (Protonix -) 40 mg PO DAILY [facility] Last Admin: 01/07/19 09:37 Dose: 40 mg Polyethylene Glycol (Miralax (For Daily Use) -) 17 gm PO BID [facility] Last Admin: 01/07/19 09:38 Dose: Not Given A/P s/p CHELE C2-T1/L3-S1/Laminectomy/L1-S1 Posterior Fusion/Cage Placement/Durotomy repair S/P Acute Respiratory Failure Acute Blood Loss Anemia CAD Atrial Fibrillation Acute on Chronic Diastolic Heart Failure Volume Overload improving Pneumonia UTI COPD Rheumatoid Arthritis HTN Hyperlipidemia h/o Prostate Ca - lasix - monitor urine output, creatinine - monitor lytes - antibiotics per ID - rate control - continue anticoagulation - rehab/PT - DVT/GI prophylaxis - d/c planning
--- NOTE | 2019-01-07 12:00 | PN ---
Progress Note, ASSISTANT ATHLETIC TRAINER - Note Progress Note: Selected Entries 01/05/19 01/05/19 01/05/19 01:50 05:00 09:00 Breakfast Lunch Supper Temperature 97.6 F 98.6 F 98.9 F 01/05/19 01/05/19 01/05/19 14:00 17:00 19:04 Breakfast 75% Lunch 50% Supper 50% Temperature 97.5 F L 98.0 F 01/05/19 01/06/19 01/06/19 21:00 01:23 02:00 Breakfast Lunch Supper Temperature 98.8 F 97.6 F 97.6 F 01/06/19 01/06/19 01/06/19 06:00 10:00 11:55 Breakfast 50% Lunch Supper Temperature 98.5 F 98.1 F Laboratory Tests 01/02/19 01/05/19 05:30 06:50 WBC 12.4 H 14.4 H Looking better. Overtly tolerating diet. Seen reclining, sound congested? coughing. Reviewed with nursing-defer thin liquid until instrumental swallowing assessment performed. Unable to tolerate MBS. For FEES at [place].
--- NOTE | 2019-01-07 16:45 | PN ---
Physical Exam: SUBJECTIVE: Patient seen and examined at bedside. still complains of pain. No new complaints. OBJECTIVE: Vital Signs Period Temp Pulse Resp BP Sys/Dyson Pulse Ox Last 24 Hr 97.9 F-98.8 F 80-89 18-20 111-118/58-68 98-99 GENERAL: A&Ox3, no acute distress EYES: PERRLA, EOMI ENT: Moist mucus membranes NECK: No JVD LUNGS: CTA, no wheezes HEART: irregularly irregular rate, mild systolic murmur noted on exam ABDOMEN: Soft, nontender, BS present EXTREMITIES: 2+ pulses, no edema. NEUROLOGICAL: Cranial nerves II-XII intact. Laboratory Results - last 24 hr 01/04/19 01/06/19 01/07/19 10:40 17:15 06:30 WBC 16.0 H RBC 3.10 L Hgb 9.5 L Hct 28.9 L MCV 93.0 MCH 30.5 MCHC 32.8 RDW 17.1 H Plt Count 927 H MPV 6.5 L Absolute Neuts (auto) 13.1 H Neutrophils % 82.0 Lymphocytes % 7.5 L D Monocytes % 8.1 Eosinophils % 2.1 Basophils % 0.3 Nucleated RBC % 0 Sodium Potassium Chloride Carbon Dioxide Anion Gap BUN Creatinine Creat Clearance w eGFR Random Glucose Calcium Total Bilirubin AST ALT Alkaline Phosphatase Total Protein Albumin Urine Color Red Urine Appearance Cloudy Urine pH 6.5 D Ur Specific [place] 1.019 Urine Protein 2+ H Urine Glucose (UA) Negative Urine Ketones Negative Urine Blood 3+ H Urine Nitrite Negative Urine Bilirubin Negative Urine Urobilinogen 1.0 Ur Leukocyte Esterase 3+ H Urine WBC (Auto) 163 Urine RBC (Auto) 2535.9 Urine Casts (Auto) 42 U Pathogenic Cast Auto None seen U Epithel Cells (Auto) 0.7 Urine Bacteria (Auto) 7.5 Urine Yeast (Auto) Moderate Blood Type O POSITIVE Antibody Screen Negative Crossmatch See Detail 01/07/19 06:30 WBC RBC Hgb Hct MCV MCH MCHC RDW Plt Count MPV Absolute Neuts (auto) Neutrophils % Lymphocytes % Monocytes % Eosinophils % Basophils % Nucleated RBC % Sodium 137 Potassium 3.5 Chloride 98 Carbon Dioxide 32 Anion Gap 7 L BUN 25 H Creatinine 1.0 Creat Clearance w eGFR 73.25 Random Glucose 89 Calcium 9.1 Total Bilirubin 0.6 AST 17 ALT 20 Alkaline Phosphatase 76 Total Protein 5.3 L Albumin 2.5 L Urine Color Urine Appearance Urine pH Ur Specific [place] Urine Protein Urine Glucose (UA) Urine Ketones Urine Blood Urine Nitrite Urine Bilirubin Urine Urobilinogen Ur Leukocyte Esterase Urine WBC (Auto) Urine RBC (Auto) Urine Casts (Auto) U Pathogenic Cast Auto U Epithel Cells (Auto) Urine Bacteria (Auto) Urine Yeast (Auto) Blood Type Antibody Screen Crossmatch Active Medications Generic Name Dose Route Start Last Admin Trade Name Freq PRN Reason Stop Dose Admin Acetaminophen 650 mg 12/30/18 20:47 01/07/19 15:19 Tylenol - PO 650 mg Q6H PRN Administration PAIN LEVEL 1-3 Acetaminophen 650 mg 01/03/19 17:12 01/07/19 09:37 Tylenol - PO 650 mg Q8H PRN Administration PAIN SCALE 7-10 Apixaban 5 mg 12/30/18 22:00 01/07/19 09:36 Eliquis - PO 5 mg BID [facility] Administration Aspirin 81 mg 12/31/18 10:00 01/07/19 09:37 Ecotrin - PO 81 mg DAILY [facility] Administration Benzocaine/Menthol 1 each 12/30/18 20:47 Cepacol Lozenge - MM PRN PRN SORE THROAT Docusate Sodium 100 mg 01/03/19 22:00 01/07/19 14:07 Colace - PO 100 mg TID [facility] Administration Furosemide 40 mg 01/04/19 10:00 01/07/19 09:36 Lasix - PO 40 mg DAILY [facility] Administration Gabapentin 300 mg 12/30/18 22:00 01/07/19 14:07 Neurontin - PO 300 mg TID [facility] Administration Piperacillin Sod/Tazobactam 50 mls @ 100 mls/hr 01/02/19 10:00 01/07/19 09:37 Sod 3.375 gm/ Dextrose IVPB 100 mls/hr Q8H-IV [facility] Administration Protocol Metoprolol Tartrate 25 mg 12/30/18 22:00 01/07/19 09:37 Lopressor - NGT 25 mg BID [facility] Administration Ondansetron HCl 4 mg 12/30/18 20:47 Zofran Injection IVPUSH Q6H PRN NAUSEA Oxycodone HCl 10 mg 01/07/19 15:07 03/28/19 15:17 Roxicodone - PO 10 mg Q6H PRN Administration PAIN SCALE 7-10 Pantoprazole Sodium 40 mg 01/04/19 10:00 01/07/19 09:37 Protonix - PO 40 mg DAILY [facility] Administration Polyethylene Glycol 17 gm 01/05/19 22:00 01/07/19 09:38 Miralax (For Daily Use) - PO Not Given BID [facility] ASSESSMENT/PLAN: 73 year old male with a history of afib on eliquis, CHF, COPD, GERD, RA, prostate CA (local) in 2007 (was on leupron), sent in for spine surgery on 12/18 with prolonged hospital course. We are consulted on thrombocytosis. #Thrombocytosis: likely reactive thrombocytosis, still rising -likely this was due to the infection vs acute blood loss post-surgically. Additionally liver damage from hypoperfusion/hypoxia during ICU admission could create a picture of reactive thrombocytosis -would opt to observe without intervention; will not start antiplatelet therapy at this time -may check JAK2 kinase mutation ([id number]) -continue to monitor platelets #Normocytic anemia: came in with high MCV > 100, now normal. Could be due to acute blood loss anemia leading to iron deficiency -would monitor H&H -transfuse to hgb goal of 7 Dispo: We will continue to follow the patient. Thank you for this consultative opportunity. [place], PGY2 Case Discussed with Dr. Quiles Visit type - Emergency Visit Emergency Visit: No - New Patient This patient is new to me today: No - Critical Care Critical Care patient: No
--- NOTE | 2019-01-07 22:56 | PN ---
Progress Note, Physician History of Present Illness: No new complaints - Current Medication List Current Medications: Active Medications Acetaminophen (Tylenol -) 650 mg PO Q6H PRN PRN Reason: PAIN LEVEL 1-3 Last Admin: 01/07/19 15:19 Dose: 650 mg Acetaminophen (Tylenol -) 650 mg PO Q8H PRN PRN Reason: PAIN SCALE 7-10 Last Admin: 01/07/19 09:37 Dose: 650 mg Apixaban (Eliquis -) 5 mg PO BID [facility] Last Admin: 01/07/19 21:32 Dose: 5 mg Aspirin (Ecotrin -) 81 mg PO DAILY [facility] Last Admin: 01/07/19 09:37 Dose: 81 mg Benzocaine/Menthol (Cepacol Lozenge -) 1 each MM PRN PRN PRN Reason: SORE THROAT Docusate Sodium (Colace -) 100 mg PO TID [facility] Last Admin: 01/07/19 21:34 Dose: Not Given Furosemide (Lasix -) 40 mg PO DAILY [facility] Last Admin: 01/07/19 09:36 Dose: 40 mg Gabapentin (Neurontin -) 300 mg PO TID [facility] Last Admin: 01/07/19 21:31 Dose: 300 mg Piperacillin Sod/Tazobactam (Sod 3.375 gm/ Dextrose) 50 mls @ 100 mls/hr IVPB Q8H-IV [facility]; Protocol Last Admin: 01/07/19 18:22 Dose: 100 mls/hr Metoprolol Tartrate (Lopressor -) 25 mg NGT BID [facility] Last Admin: 01/07/19 21:31 Dose: 25 mg Ondansetron HCl (Zofran Injection) 4 mg IVPUSH Q6H PRN PRN Reason: NAUSEA Oxycodone HCl (Roxicodone -) 10 mg PO Q6H PRN PRN Reason: PAIN SCALE 7-10 Last Admin: 01/07/19 21:39 Dose: 10 mg Pantoprazole Sodium (Protonix -) 40 mg PO DAILY [facility] Last Admin: 01/07/19 09:37 Dose: 40 mg Polyethylene Glycol (Miralax (For Daily Use) -) 17 gm PO BID [facility] Last Admin: 01/07/19 21:32 Dose: Not Given - Objective Vital Signs: Vital Signs Temperature 97.5 F L 01/07/19 16:15 Pulse Rate 84 01/07/19 16:15 Respiratory Rate 18 01/07/19 16:15 Blood Pressure 125/65 01/07/19 16:15 O2 Sat by Pulse Oximetry (%) 99 01/07/19 09:30 Neck: Yes: Supple Cardiovascular: Yes: Pulse Irregular Respiratory: Yes: Diminished Gastrointestinal: Yes: WNL, Normal Bowel Sounds, Soft Edema: LLE: Trace, RLE: Trace Labs: CBC, BMP 01/07/19 06:30 01/07/19 06:30 INR, PTT INR 1.55 (0.83-1.09) H 12/29/18 05:30 Problem List - Problems (1) Pneumonia Assessment/Plan: Cont IV zosyn Monitor WBC WBC still elevated Pt remains afebrile Will check ct scan chest Code(s): J18.9 - PNEUMONIA, UNSPECIFIED ORGANISM (2) Back pain Assessment/Plan: 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, laminectomy C2-T1 with posterior fusion of C-T1, removal of hardware from L3-S1 (retained screw at right S1) laminectomy of L1/L2 and L2/L3 posterior fusion of L1 through S1, repair of durotomy and cage placement L2-L3 Cont PT Encourage ambulation Pt still requiring oxycodone for pain Cont stool softners Code(s): M54.9 - DORSALGIA, UNSPECIFIED (3) Acute on chronic diastolic (congestive) heart failure Assessment/Plan: Cont PO lasix Code(s): I50.33 - ACUTE ON CHRONIC DIASTOLIC (CONGESTIVE) HEART FAILURE (4) Afib Assessment/Plan: Cont eliquis Monitor H/H Heart rate controlled Code(s): I48.91 - UNSPECIFIED ATRIAL FIBRILLATION (5) Anemia Assessment/Plan: Acute blood loss anemia S/P blood transfusions Monitor H/H Code(s): D64.9 - ANEMIA, UNSPECIFIED (6) CAD (coronary artery disease) Assessment/Plan: Plavix was stopped Cont asa Pt had been on it for a yr s/p stent placement Code(s): I25.10 - ATHSCL HEART DISEASE OF [place] CORONARY ARTERY W/O ANG PCTRS Qualifiers: Coronary Disease-Associated Artery/Lesion type: [place] artery [place] vs. transplanted heart: [place] heart Associated angina: without angina Qualified Code(s): I25.10 - Atherosclerotic heart disease of [place] coronary artery without angina pectoris (7) GERD (gastroesophageal reflux disease) Code(s): K21.9 - GASTRO-ESOPHAGEAL REFLUX DISEASE WITHOUT ESOPHAGITIS (8) HLD (hyperlipidemia) Code(s): E78.5 - HYPERLIPIDEMIA, UNSPECIFIED (9) HTN (hypertension) Code(s): I10 - ESSENTIAL (PRIMARY) HYPERTENSION Qualifiers: Hypertension type: essential hypertension Qualified Code(s): I10 - Essential (primary) hypertension (10) Hx of heart artery stent Code(s): Z95.5 - PRESENCE OF CORONARY ANGIOPLASTY IMPLANT AND GRAFT (11) COPD (chronic obstructive pulmonary disease) Assessment/Plan: Cont inhalers Code(s): J44.9 - CHRONIC OBSTRUCTIVE PULMONARY DISEASE, UNSPECIFIED
[2019-01-08] MEDS ORDERED: PIPERACILLIN/TAZOBACTAM 3.375 GM VIAL IVPB ONE ×3 (01:52→17:40)
[2019-01-08] MEDS ORDERED: DEXTROSE 5%-WATER - 50 ML IVPB ONE ×3 (01:52→17:41)
[2019-01-08] MEDS: PIPERACILLIN/TAZOB 3.375 GM 3.375 GM in DEXTROSE 5%-WATER - 50 ML IVPB SCH ×3 (02:06→18:33)
[2019-01-08] MEDS: GABAPENTIN 300 MG CAPSULE (FP) PO SCH ×3 (05:35→21:23)
[2019-01-08] MEDS: DOCUSATE SODIUM 100 MG CAPSULE (FP) PO SCH ×3 (05:35→21:23)
[2019-01-08 07:55] LABS: BASO % 0.4 % (0-2.0); HEMATOCRIT 29.6 % (35.4-49); HEMOGLOBIN 9.9 GM/dL (11.7-16.9); LYMPH % 9.3 % (8-40); MCH 30.6 pg (25.7-33.7); MCHC 33.2 g/dl (32.0-35.9); MEAN PLT VOLUME 6.6 fl (7.5-11.1); MONO % 7.3 % (3.8-10.2); PLATELET COUNT 950 K/MM3 (134-434); RBC 3.22 M/mm3 (4.00-5.60); RDW 16.9 % (11.9-15.9); WHITE BLOOD COUNT 15.3 K/mm3 (4.0-10.0)
[2019-01-08] MEDS: oxyCODONE HCL 5 MG TABLET PO PRN ×3 (08:18→20:26)
[2019-01-08 08:31] LABS: ALBUMIN 2.5 g/dl (3.4-5.0); ALK PHOS 76 U/L (45-117); ANION GAP 6 MMOL/L (8-16); BILIRUBIN,TOTAL 0.6 mg/dL (0.2-1); BLOOD UREA NITROGEN 26 mg/dL (7-18); CALCIUM 9.3 mg/dL (8.5-10.1); CHLORIDE 98 mmol/L (98-107); CO2 33 mmol/L (21-32); CREATININE 0.9 mg/dL (0.55-1.3); GLUCOSE,RANDOM 96 mg/dL (74-106); POTASSIUM 3.4 mmol/L (3.5-5.1); SGOT/AST 17 U/L (15-37); SGPT/ALT 20 U/L (13-61); SODIUM 136 mmol/L (136-145); TOT PROT 5.3 g/dl (6.4-8.2)
--- NOTE | 2019-01-08 08:31 | PN ---
Progress Note, Physician Chief Complaint: no chest pain, sob History of Present Illness: afebrile - Current Medication List Current Medications: Active Medications Acetaminophen (Tylenol -) 650 mg PO Q6H PRN PRN Reason: PAIN LEVEL 1-3 Last Admin: 01/07/19 15:19 Dose: 650 mg Acetaminophen (Tylenol -) 650 mg PO Q8H PRN PRN Reason: PAIN SCALE 7-10 Last Admin: 01/07/19 09:37 Dose: 650 mg Apixaban (Eliquis -) 5 mg PO BID [facility] Last Admin: 01/07/19 21:32 Dose: 5 mg Aspirin (Ecotrin -) 81 mg PO DAILY [facility] Last Admin: 01/07/19 09:37 Dose: 81 mg Benzocaine/Menthol (Cepacol Lozenge -) 1 each MM PRN PRN PRN Reason: SORE THROAT Docusate Sodium (Colace -) 100 mg PO TID [facility] Last Admin: 01/08/19 05:35 Dose: Not Given Furosemide (Lasix -) 40 mg PO DAILY [facility] Last Admin: 01/07/19 09:36 Dose: 40 mg Gabapentin (Neurontin -) 300 mg PO TID [facility] Last Admin: 01/08/19 05:35 Dose: 300 mg Piperacillin Sod/Tazobactam (Sod 3.375 gm/ Dextrose) 50 mls @ 100 mls/hr IVPB Q8H-IV [facility]; Protocol Last Admin: 01/08/19 02:06 Dose: 100 mls/hr Metoprolol Tartrate (Lopressor -) 25 mg NGT BID [facility] Last Admin: 01/07/19 21:31 Dose: 25 mg Ondansetron HCl (Zofran Injection) 4 mg IVPUSH Q6H PRN PRN Reason: NAUSEA Oxycodone HCl (Roxicodone -) 10 mg PO Q6H PRN PRN Reason: PAIN SCALE 7-10 Last Admin: 01/08/19 08:18 Dose: 10 mg Pantoprazole Sodium (Protonix -) 40 mg PO DAILY [facility] Last Admin: 01/07/19 09:37 Dose: 40 mg Polyethylene Glycol (Miralax (For Daily Use) -) 17 gm PO BID [facility] Last Admin: 01/07/19 21:32 Dose: Not Given - Objective Vital Signs: Vital Signs Temperature 97.9 F 01/08/19 04:00 Pulse Rate 85 01/08/19 04:00 Respiratory Rate 18 01/08/19 04:00 Blood Pressure 140/58 L 01/08/19 04:00 O2 Sat by Pulse Oximetry (%) 99 01/07/19 21:00 Constitutional: Yes: Calm Cardiovascular: Yes: Pulse Irregular Respiratory: Yes: Other (scattered, no rales. No wheezing) Gastrointestinal: Yes: Soft (NT) Edema: Yes Edema: LLE: 1+ (ankle), RLE: 1+ (ankle) Neurological: Yes: Alert, Oriented ...Motor Strength: WNL Labs: CBC, BMP 01/08/19 06:30 INR, PTT INR 1.55 (0.83-1.09) H 12/29/18 05:30 Laboratory Tests 01/07/19 01/08/19 01/08/19 06:30 06:30 06:30 WBC 15.3 H Hgb 9.9 L Hct 29.6 L Plt Count 950 H Sodium 137 Pending Potassium 3.5 Pending BUN 25 H Pending Creatinine 1.0 Pending Creat Clearance w eGFR Pending Calcium Pending Total Bilirubin Pending AST Pending ALT Pending Alkaline Phosphatase Pending Total Protein Pending Albumin Pending Problem List - Problems (1) Back pain Code(s): M54.9 - DORSALGIA, UNSPECIFIED (2) Paroxysmal atrial fibrillation Code(s): I48.0 - PAROXYSMAL ATRIAL FIBRILLATION (3) CAD (coronary artery disease) Code(s): I25.10 - ATHSCL HEART DISEASE OF [place] CORONARY ARTERY W/O ANG PCTRS Qualifiers: Coronary Disease-Associated Artery/Lesion type: [place] artery [place] vs. transplanted heart: [place] heart Associated angina: without angina Qualified Code(s): I25.10 - Atherosclerotic heart disease of [place] coronary artery without angina pectoris (4) Hx of heart artery stent Code(s): Z95.5 - PRESENCE OF CORONARY ANGIOPLASTY IMPLANT AND GRAFT (5) HTN (hypertension) Code(s): I10 - ESSENTIAL (PRIMARY) HYPERTENSION Qualifiers: Hypertension type: essential hypertension Qualified Code(s): I10 - Essential (primary) hypertension (6) Pulmonary hypertension Code(s): I27.20 - PULMONARY HYPERTENSION, UNSPECIFIED (7) Anticoagulation management encounter Code(s): Z51.81 - ENCOUNTER FOR THERAPEUTIC DRUG LEVEL MONITORING; Z79.01 - SHOWCASE TRIMMER (CURRENT) USE OF ANTICOAGULANTS Assessment/Plan IMP: 1. Intractable neck pain, cervical and lumbar disc disease s/p Removal of hardware from C2-C7, laminectomy C2-T1 with posterior fusion of C2-T1. removal of hardware from L3-S1(retained screw at Right S1) laminectomy of L1/L2 and L2/L3 posterior fusion of L1 thru S1, repair of durotomy and cage placment L2-L3 2. PHTN, chronic 3. CAD s/p PCI 4. Permanent AF 5. Acute on chronic diastolic CHF 6. Moderate MR 7. Post op fever: cultures negative. 8. Anemia 9. Thrombocytosis REC: 1. Continue abx as per ID for suspected PNA. Chest CT planned. 2. Blood cultures remain negative; ID following. 3. H/H stable. 4. Transitioned back to oral AC. 6. Continue B-[place]ine for rate control. 8. ASA has been resumed (prior coronary PCI) 9. Continue Lasix 10. Continue PPI for GI prophylaxis 11. Elevated platelets: likely reactive, continue to climb. Heme consult appreciated. Drs. Rodriguez/Aleida covering weekend.
[2019-01-08] MEDS: METOPROLOL TARTRATE 25 MG TABLET (FP) NGT SCH ×2 (10:05→21:23)
[2019-01-08] MEDS: ASPIRIN COATED 81 MG TABLET.EC PO SCH (10:05)
[2019-01-08] MEDS: PANTOPRAZOLE 40 MG TABLET (FP) PO SCH (10:05)
[2019-01-08] MEDS: FUROSEMIDE 40 MG TABLET (FP) PO SCH (10:05)
[2019-01-08] MEDS: APIXABAN 5 MG TABLET PO SCH ×2 (10:05→21:23)
[2019-01-08] MEDS: POLYETHYLENE GLYCOL 3350 119 GM BTL PO SCH ×2 (10:06→21:23)
--- NOTE | 2019-01-08 13:07 | PN ---
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 - Note Progress Note: Selected Entries 01/05/19 01/05/19 01/05/19 01:50 05:00 09:00 Breakfast Lunch Supper Temperature 97.6 F 98.6 F 98.9 F 01/05/19 01/05/19 01/05/19 14:00 17:00 19:04 Breakfast 75% Lunch 50% Supper 50% Temperature 97.5 F L 98.0 F 01/05/19 01/06/19 01/06/19 21:00 01:23 02:00 Breakfast Lunch Supper Temperature 98.8 F 97.6 F 97.6 F 01/06/19 01/06/19 01/06/19 06:00 10:00 11:55 Breakfast 50% Lunch Supper Temperature 98.5 F 98.1 F Laboratory Tests 01/02/19 01/05/19 05:30 06:50 WBC 12.4 H 14.4 H Selected Entries 01/08/19 01/08/19 01/08/19 04:00 08:00 12:00 Breakfast 100% Diet Tolerated Well Lunch 75% Temperature 97.9 F 97.8 F Laboratory Tests 01/08/19 06:30 WBC 15[address] chest. D/c Plan now is for STR, per EMR. Pt would benefit from MBS, especially since pt will not be going to [place] for FEES examination.Silent aspiration can not be r/o at bedside. I just question if pt could tolerate MBS due to pt's pain level. Continue puree/nectar, no thin liquids.
--- NOTE | 2019-01-08 13:37 | PN ---
Progress Note (short form) - Note Progress Note: PULMONARY COMPLAINING OF BACK/ NEGATIVE SOB/CP Constitutional: Yes: Well Nourished Eyes: Yes: WNL HENT: Yes: WNL Neck: Yes: WNL Cardiovascular: Yes: Pulse Irregular, S1, S2 Respiratory: Yes: Bibasilar rhonchi diminished breath sounds Gastrointestinal: Yes: Normal Bowel Sounds, Soft Extremities: Yes: WNL Edema: Yes Labs: reviewed s/p Laminectomy/L1-S1 Posterior Fusion/Cage Placement/Durotomy repair S/P Acute Respiratory Failure Acute Blood Loss Anemia CAD Atrial Fibrillation Acute on Chronic Diastolic Heart Failure Volume Overload improving Pneumonia UTI COPD Rheumatoid Arthritis HTN Hyperlipidemia h/o Prostate Ca New right base infiltrate - ABS coverage as per ID - monitor urine output, creatinine - monitor lytes - rate control - continue anticoagulation - aspiration precautions - DVT/GI prophylaxis - Analgesia Shelbie SOMMER MD
[2019-01-08] MEDS: ACETAMINOPHEN 325 MG TABLET (FP) PO PRN (14:00)
--- NOTE | 2019-01-08 23:03 | PN ---
Progress Note, Physician - Current Medication List Current Medications: Active Medications Acetaminophen (Tylenol -) 650 mg PO Q6H PRN PRN Reason: PAIN LEVEL 1-3 Last Admin: 01/07/19 15:19 Dose: 650 mg Acetaminophen (Tylenol -) 650 mg PO Q8H PRN PRN Reason: PAIN SCALE 7-10 Last Admin: 01/08/19 14:00 Dose: 650 mg Apixaban (Eliquis -) 5 mg PO BID [facility] Last Admin: 01/08/19 21:23 Dose: 5 mg Aspirin (Ecotrin -) 81 mg PO DAILY [facility] Last Admin: 01/08/19 10:05 Dose: 81 mg Benzocaine/Menthol (Cepacol Lozenge -) 1 each MM PRN PRN PRN Reason: SORE THROAT Docusate Sodium (Colace -) 100 mg PO TID [facility] Last Admin: 01/08/19 21:23 Dose: 100 mg Furosemide (Lasix -) 40 mg PO DAILY [facility] Last Admin: 01/08/19 10:05 Dose: 40 mg Gabapentin (Neurontin -) 300 mg PO TID [facility] Last Admin: 01/08/19 21:23 Dose: 300 mg Piperacillin Sod/Tazobactam (Sod 3.375 gm/ Dextrose) 50 mls @ 100 mls/hr IVPB Q8H-IV [facility]; Protocol Last Admin: 01/08/19 18:33 Dose: 100 mls/hr Metoprolol Tartrate (Lopressor -) 25 mg NGT BID [facility] Last Admin: 01/08/19 21:23 Dose: 25 mg Ondansetron HCl (Zofran Injection) 4 mg IVPUSH Q6H PRN PRN Reason: NAUSEA Oxycodone HCl (Roxicodone -) 10 mg PO Q6H PRN PRN Reason: PAIN SCALE 7-10 Last Admin: 01/08/19 20:26 Dose: 10 mg Pantoprazole Sodium (Protonix -) 40 mg PO DAILY [facility] Last Admin: 01/08/19 10:05 Dose: 40 mg Polyethylene Glycol (Miralax (For Daily Use) -) 17 gm PO BID [facility] Last Admin: 01/08/19 21:23 Dose: 17 grams - Objective Vital Signs: Vital Signs Temperature 97.8 F 01/08/19 16:30 Pulse Rate 87 03/29/19 16:30 Respiratory Rate 18 01/08/19 16:30 Blood Pressure 119/57 L 01/08/19 16:30 O2 Sat by Pulse Oximetry (%) 98 01/08/19 09:00 Labs: CBC, BMP 01/08/19 06:30 01/08/19 06:30 INR, PTT INR 1.55 (0.83-1.09) H 12/29/18 05:30 Problem List - Problems (1) Pneumonia Code(s): J18.9 - PNEUMONIA, UNSPECIFIED ORGANISM (2) Back pain Code(s): M54.9 - DORSALGIA, UNSPECIFIED (3) Acute on chronic diastolic (congestive) heart failure Code(s): I50.33 - ACUTE ON CHRONIC DIASTOLIC (CONGESTIVE) HEART FAILURE (4) Afib Code(s): I48.91 - UNSPECIFIED ATRIAL FIBRILLATION (5) Anemia Code(s): D64.9 - ANEMIA, UNSPECIFIED (6) CAD (coronary artery disease) Code(s): I25.10 - ATHSCL HEART DISEASE OF [place] CORONARY ARTERY W/O ANG PCTRS Qualifiers: Coronary Disease-Associated Artery/Lesion type: [place] artery [place] vs. transplanted heart: [place] heart Associated angina: without angina Qualified Code(s): I25.10 - Atherosclerotic heart disease of [place] coronary artery without angina pectoris (7) GERD (gastroesophageal reflux disease) Code(s): K21.9 - GASTRO-ESOPHAGEAL REFLUX DISEASE WITHOUT ESOPHAGITIS (8) HLD (hyperlipidemia) Code(s): E78.5 - HYPERLIPIDEMIA, UNSPECIFIED (9) HTN (hypertension) Code(s): I10 - ESSENTIAL (PRIMARY) HYPERTENSION Qualifiers: Hypertension type: essential hypertension Qualified Code(s): I10 - Essential (primary) hypertension (10) Hx of heart artery stent Code(s): Z95.5 - PRESENCE OF CORONARY ANGIOPLASTY IMPLANT AND GRAFT (11) COPD (chronic obstructive pulmonary disease) Code(s): J44.9 - CHRONIC OBSTRUCTIVE PULMONARY DISEASE, UNSPECIFIED
[2019-01-09] MEDS ORDERED: PIPERACILLIN/TAZOBACTAM 3.375 GM VIAL IVPB ONE ×3 (01:42→17:20)
[2019-01-09] MEDS ORDERED: DEXTROSE 5%-WATER - 50 ML IVPB ONE ×3 (01:43→17:20)
[2019-01-09] MEDS: PIPERACILLIN/TAZOB 3.375 GM 3.375 GM in DEXTROSE 5%-WATER - 50 ML IVPB SCH ×3 (02:36→17:22)
[2019-01-09] MEDS: oxyCODONE HCL 5 MG TABLET PO PRN ×2 (02:36→08:40)
[2019-01-09] MEDS: GABAPENTIN 300 MG CAPSULE (FP) PO SCH ×3 (05:45→21:25)
[2019-01-09] MEDS: DOCUSATE SODIUM 100 MG CAPSULE (FP) PO SCH ×3 (05:46→21:26)
[2019-01-09 07:29] LABS: BASO % 0.4 % (0-2.0); HEMATOCRIT 30.3 % (35.4-49); HEMOGLOBIN 10.1 GM/dL (11.7-16.9); LYMPH % 7.5 % (8-40); MCH 31.4 pg (25.7-33.7); MCHC 33.4 g/dl (32.0-35.9); MEAN CELL VOLUME 94.1 fl (80-96); MEAN PLT VOLUME 6.7 fl (7.5-11.1); MONO % 8.4 % (3.8-10.2); NEUT % 81.7 % (42.8-82.8); PLATELET COUNT 962 K/MM3 (134-434); RBC 3.22 M/mm3 (4.00-5.60); RDW 17.2 % (11.9-15.9); WHITE BLOOD COUNT 16.2 K/mm3 (4.0-10.0)
[2019-01-09 08:19] LABS: ALBUMIN 2.6 g/dl (3.4-5.0); ALK PHOS 75 U/L (45-117); ANION GAP 10 MMOL/L (8-16); BILIRUBIN,TOTAL 0.5 mg/dL (0.2-1); BLOOD UREA NITROGEN 25 mg/dL (7-18); CALCIUM 9.1 mg/dL (8.5-10.1); CHLORIDE 97 mmol/L (98-107); CO2 32 mmol/L (21-32); GLUCOSE,RANDOM 103 mg/dL (74-106); POTASSIUM 3.4 mmol/L (3.5-5.1); SGOT/AST 16 U/L (15-37); SGPT/ALT 19 U/L (13-61); SODIUM 139 mmol/L (136-145); TOT PROT 5.7 g/dl (6.4-8.2)
[2019-01-09] MEDS: ACETAMINOPHEN 325 MG TABLET (FP) PO PRN (08:41)
[2019-01-09] MEDS ORDERED: PT OWN MED DRAWER 7, Y5N ONE ×2 (10:24→15:05)
[2019-01-09] MEDS: FUROSEMIDE 40 MG TABLET (FP) PO SCH (10:27)
[2019-01-09] MEDS: ASPIRIN COATED 81 MG TABLET.EC PO SCH (10:27)
[2019-01-09] MEDS: APIXABAN 5 MG TABLET PO SCH ×2 (10:27→21:25)
[2019-01-09] MEDS: POLYETHYLENE GLYCOL 3350 119 GM BTL PO SCH ×2 (10:28→21:26)
[2019-01-09] MEDS: PANTOPRAZOLE 40 MG TABLET (FP) PO SCH (10:29)
[2019-01-09] MEDS: METOPROLOL TARTRATE 25 MG TABLET (FP) NGT SCH ×2 (10:31→21:25)
--- NOTE | 2019-01-09 12:13 | PN ---
Progress Note (short form) - Note Progress Note: Resting in NAD. No acute distress. Denies shortness of breath or chest pain. No fevers. Intake & Output 01/06/19 01/07/19 01/08/19 01/09/19 23:59 23:59 23:59 23:59 Intake Total 535 021 8207 500 Output Total 950 950 Balance -650 -430 1030 500 Weight 211 lb 5 oz Last Vital Signs Temp Pulse Resp BP Pulse Ox 97.4 F L 85 20 108/79 96 01/09/19 08:20 01/09/19 08:20 01/09/19 08:20 01/09/19 08:20 01/09/19 09:00 Active Medications Acetaminophen (Tylenol -) 650 mg PO Q6H PRN PRN Reason: PAIN LEVEL 1-3 Last Admin: 01/07/19 15:19 Dose: 650 mg Acetaminophen (Tylenol -) 650 mg PO Q8H PRN PRN Reason: PAIN SCALE 7-10 Last Admin: 01/09/19 08:41 Dose: 650 mg Apixaban (Eliquis -) 5 mg PO BID [facility] Last Admin: 01/09/19 10:27 Dose: 5 mg Aspirin (Ecotrin -) 81 mg PO DAILY [facility] Last Admin: 01/09/19 10:27 Dose: 81 mg Benzocaine/Menthol (Cepacol Lozenge -) 1 each MM PRN PRN PRN Reason: SORE THROAT Docusate Sodium (Colace -) 100 mg PO TID [facility] Last Admin: 01/09/19 05:46 Dose: 100 mg Furosemide (Lasix -) 40 mg PO DAILY [facility] Last Admin: 01/09/19 10:27 Dose: 40 mg Gabapentin (Neurontin -) 300 mg PO TID [facility] Last Admin: 01/09/19 05:45 Dose: 300 mg Piperacillin Sod/Tazobactam (Sod 3.375 gm/ Dextrose) 50 mls @ 100 mls/hr IVPB Q8H-IV [facility]; Protocol Last Admin: 01/09/19 10:30 Dose: 100 mls/hr Metoprolol Tartrate (Lopressor -) 25 mg NGT BID [facility] Last Admin: 01/09/19 10:31 Dose: 25 mg Ondansetron HCl (Zofran Injection) 4 mg IVPUSH Q6H PRN PRN Reason: NAUSEA Oxycodone HCl (Roxicodone -) 10 mg PO Q6H PRN PRN Reason: PAIN SCALE 7-10 Last Admin: 01/09/19 08:40 Dose: 10 mg Pantoprazole Sodium (Protonix -) 40 mg PO DAILY [facility] Last Admin: 01/09/19 10:29 Dose: 40 mg Polyethylene Glycol (Miralax (For Daily Use) -) 17 gm PO BID [facility] Last Admin: 01/09/19 10:28 Dose: 17 grams Gen: NAD at rest Heart: RRR Lung: decreased breath sounds at the bases Abd: soft, nontender Ext: no edema Laboratory Results - last 24 hr 01/09/19 01/09/19 06:00 06:00 WBC 16.2 H RBC 3.22 L Hgb 10.1 L Hct 30.3 L MCV 94.1 MCH 31.4 MCHC 33.4 RDW 17.2 H Plt Count 962 H MPV 6.7 L Absolute Neuts (auto) 13.2 H Neutrophils % 81.7 Lymphocytes % 7.5 L Monocytes % 8.4 Eosinophils % 2.0 Basophils % 0.4 Nucleated RBC % 0 Sodium 139 Potassium 3.4 L Chloride 97 L Carbon Dioxide 32 Anion Gap 10 BUN 25 H Creatinine 1.0 Creat Clearance w eGFR 73.25 Random Glucose 103 Calcium 9.1 Total Bilirubin 0.5 AST 16 ALT 19 Alkaline Phosphatase 75 Total Protein 5.7 L Albumin 2.6 L A/P s/p CHELE C2-T1/L3-S1/Laminectomy/L1-S1 Posterior Fusion/Cage Placement/Durotomy repair S/P Acute Respiratory Failure Acute Blood Loss Anemia CAD Atrial Fibrillation Acute on Chronic Diastolic Heart Failure Volume Overload improving Pneumonia UTI COPD Rheumatoid Arthritis HTN Hyperlipidemia h/o Prostate Ca - lasix - monitor lytes - rate control - rehab/PT - DVT/GI prophylaxis - Eliquis Dr [place]
--- NOTE | 2019-01-09 12:48 | CON.GI ---
Consult Consult Specialty:: GI Referred by:: [place]th/ Leonard Lester - History of Present Illness History of Present Illness: 73 y/o s/p Laminectomy/L1-S1 Posterior Fusion/Cage Placement/Durotomy repair, with history of AFIB CHF, COPD,rheumatoid arthritis, Prostate CA, UTI, Pneumonia was asked to be seen because of abnormal abdominal x-ray showing dilated stomach. He is very hungry and complains of constipation. - Past Medical History SAMPLE WEAVER: Yes: Peripheral Neuropathy Cardio/Vascular: Yes: CAD, HTN, Hyperlipdemia Gastrointestinal: Yes: GERD Musculoskeletal: Yes: Other (Chronic rt ankle pain) Rheumatology: Yes: Gout - Alcohol/Substance Use Hx Alcohol Use: No History of Substance Use: reports: None - Smoking History Smoking history: Current every day smoker Have you smoked in the past 12 months: No - Social History ADL: Independent History of Recent Travel: No Home Medications - Allergies Allergies/Adverse Reactions: Allergies Allergy/AdvReac Type Severity Reaction Status Date / Time gentamicin Allergy Severe Difficulty Verified 12/18/18 08:25 Breathing ketorolac [From Toradol] Allergy Unknown Difficulty Verified 12/18/18 08:25 Breathing propofol Allergy Unknown Difficulty Verified 12/18/18 08:25 Breathing - Home Medications Home Medications: Ambulatory Orders Febuxostat [Uloric -] 40 mg PO DAILY 04/03/17 Methocarbamol 750 mg PO BID PRN 04/03/17 Montelukast Na [Singulair -] 10 mg PO HS 04/03/17 Omeprazole Magnesium [Prilosec] 10 mg PO DAILY 04/03/17 Oxycodone HCl [Oxycodone HCl ER] 10 mg PO BID 10/28/17 Clopidogrel Bisulfate [Plavix -] 75 mg PO DAILY #30 tablet 01/12/18 Furosemide [Lasix] 40 mg PO DAILY #30 tablet 01/12/18 Metoprolol Succinate [Toprol XL -] 50 mg PO DAILY #30 tab.sr.24h 01/12/18 Atorvastatin Ca [Lipitor] 40 mg PO HS 11/20/18 Folic Acid 1 mg PO DAILY 11/20/18 Linaclotide [Linzess] 145 mcg PO DAILY 11/20/18 Naloxegol Oxalate [Movantik] 25 mg PO ASDIR 11/20/18 Nortriptyline HCl [Pamelor -] 10 mg PO DAILY 11/20/18 Tamsulosin HCl [Flomax -] 0.4 mg PO DAILY 11/20/18 Zolpidem Tartrate [Ambien] 10 mg PO HS PRN 11/20/18 Apixaban [Eliquis -] 5 mg PO BID 60 Days #30 tablet 11/24/18 oxyCODONE HCL [Roxicodone -] 10 mg PO Q6H PRN tablet MDD 10mg 11/24/18 Physical Exam-GI Vital Signs: Vital Signs Temperature 97.4 F L 01/09/19 08:20 Pulse Rate 85 01/09/19 08:20 Respiratory Rate 20 01/09/19 08:20 Blood Pressure 108/79 01/09/19 08:20 O2 Sat by Pulse Oximetry (%) 96 01/09/19 09:00 Constitutional: Yes: Well Nourished Eyes: Yes: Conjunctiva Clear HENT: Yes: Atraumatic Neck: Yes: Supple Cardiovascular: Yes: Regular Rate and Rhythm Respiratory: Yes: CTA Bilaterally Gastrointestinal Inspection: No: Distention ...Auscultate: Yes: Normoactive Bowel Sounds ...Palpate: Yes: Soft. No: Firm/Rigid, Guarding, Hepatomegaly, Mass, Splenomegaly, Tenderness, Epigastium Labs: CBC, BMP 01/09/19 06:00 01/09/19 06:00 INR, PTT INR 1.55 (0.83-1.09) H 12/29/18 05:30 Current Medications Generic Name Dose Route Start Last Admin Trade Name Freq PRN Reason Stop Dose Admin Acetaminophen 650 mg 12/30/18 20:47 01/07/19 15:19 Tylenol - PO 650 mg Q6H PRN Administration PAIN LEVEL 1-3 Acetaminophen 650 mg 01/03/19 17:12 01/09/19 08:41 Tylenol - PO 650 mg Q8H PRN Administration PAIN SCALE 7-10 Apixaban 5 mg 12/30/18 22:00 01/09/19 10:27 Eliquis - PO 5 mg BID [facility] Administration Aspirin 81 mg 12/31/18 10:00 01/09/19 10:27 Ecotrin - PO 81 mg DAILY [facility] Administration Benzocaine/Menthol 1 each 12/30/18 20:47 Cepacol Lozenge - MM PRN PRN SORE THROAT Docusate Sodium 100 mg 01/03/19 22:00 01/09/19 05:46 Colace - PO 100 mg TID [facility] Administration Furosemide 40 mg 01/04/19 10:00 01/09/19 10:27 Lasix - PO 40 mg DAILY [facility] Administration Gabapentin 300 mg 12/30/18 22:00 01/09/19 05:45 Neurontin - PO 300 mg TID [facility] Administration Piperacillin Sod/Tazobactam 50 mls @ 100 mls/hr 01/02/19 10:00 01/09/19 10:30 Sod 3.375 gm/ Dextrose IVPB 100 mls/hr Q8H-IV [facility] Administration Protocol Metoprolol Tartrate 25 mg 12/30/18 22:00 01/09/19 10:31 Lopressor - NGT 25 mg BID [facility] Administration Ondansetron HCl 4 mg 12/30/18 20:47 Zofran Injection IVPUSH Q6H PRN NAUSEA Oxycodone HCl 10 mg 01/07/19 15:07 01/09/19 08:40 Roxicodone - PO 10 mg Q6H PRN Administration PAIN SCALE 7-10 Pantoprazole Sodium 40 mg 01/04/19 10:00 01/09/19 10:29 Protonix - PO 40 mg DAILY [facility] Administration Polyethylene Glycol 17 gm 01/05/19 22:00 01/09/19 10:28 Miralax (For Daily Use) - PO 17 grams BID [facility] Administration Problem List - Problems (1) Pseudo-obstruction of intestine Assessment/Plan: R> IV Reglan 10mg tid aspiration precaution diet, low residue, lactose free Code(s): K59.8 - OTHER SPECIFIED FUNCTIONAL INTESTINAL DISORDERS
[2019-01-09] MEDS ORDERED: PANTOPRAZOLE SODIUM 40 MG in SODIUM CHLORIDE 100 ML IVPB ONE (12:51)
[2019-01-09] MEDS ORDERED: PANTOPRAZOLE SODIUM 40 MG VIAL IVPUSH ONE (13:00)
--- NOTE | 2019-01-09 13:26 | PN ---
Progress Note (short form) - Note Progress Note: s: no chest pain, sob palps dizzy Current Medications Generic Name Dose Route Start Last Admin Trade Name Freq PRN Reason Stop Dose Admin Acetaminophen 650 mg 12/30/18 20:47 01/07/19 15:19 Tylenol - PO 650 mg Q6H PRN Administration PAIN LEVEL 1-3 Acetaminophen 650 mg 01/03/19 17:12 01/09/19 08:41 Tylenol - PO 650 mg Q8H PRN Administration PAIN SCALE 7-10 Apixaban 5 mg 12/30/18 22:00 01/09/19 10:27 Eliquis - PO 5 mg BID [facility] Administration Aspirin 81 mg 12/31/18 10:00 01/09/19 10:27 Ecotrin - PO 81 mg DAILY [facility] Administration Benzocaine/Menthol 1 each 12/30/18 20:47 Cepacol Lozenge - MM PRN PRN SORE THROAT Docusate Sodium 100 mg 01/03/19 22:00 01/09/19 05:46 Colace - PO 100 mg TID [facility] Administration Furosemide 40 mg 01/04/19 10:00 01/09/19 10:27 Lasix - PO 40 mg DAILY [facility] Administration Gabapentin 300 mg 12/30/18 22:00 01/09/19 05:45 Neurontin - PO 300 mg TID [facility] Administration Piperacillin Sod/Tazobactam 50 mls @ 100 mls/hr 01/02/19 10:00 01/09/19 10:30 Sod 3.375 gm/ Dextrose IVPB 100 mls/hr Q8H-IV [facility] Administration Protocol Methylnaltrexone [place] 12 mg 01/09/19 13:30 Relistor - SQ DAILY [facility] Metoclopramide HCl 10 mg 01/09/19 13:00 Reglan Injection - IVPB Q8H [facility] Metoprolol Tartrate 25 mg 12/30/18 22:00 01/09/19 10:31 Lopressor - NGT 25 mg BID [facility] Administration Ondansetron HCl 4 mg 12/30/18 20:47 Zofran Injection IVPUSH Q6H PRN NAUSEA Oxycodone HCl 10 mg 01/07/19 15:07 01/09/19 08:40 Roxicodone - PO 10 mg Q6H PRN Administration PAIN SCALE 7-10 Pantoprazole Sodium 40 mg 01/04/19 10:00 01/09/19 10:29 Protonix - PO 40 mg DAILY [facility] Administration Polyethylene Glycol 17 gm 01/05/19 22:00 01/09/19 10:28 Miralax (For Daily Use) - PO 17 grams BID [facility] Administration - Objective Vital Signs: Vital Signs Period Temp Pulse Resp BP Sys/[place]yson Pulse Ox Last 24 Hr 97.4 F-98.0 F 82-93 18-20 108-124/57-79 96 Constitutional: Yes: Calm Cardiovascular: Yes: Pulse Irregular Respiratory: Yes: Other (scattered, no rales. No wheezing) Gastrointestinal: Yes: Soft (NT) Edema: Yes Edema: LLE: 1+ (ankle), RLE: 1+ (ankle) Neurological: Yes: Alert, Oriented ...Motor Strength: WNL Labs: CBC, BMP 01/09/19 06:00 01/09/19 06:00 Problem List - Problems (1) Back pain Code(s): M54.9 - DORSALGIA, UNSPECIFIED (2) Paroxysmal atrial fibrillation Code(s): I48.0 - PAROXYSMAL ATRIAL FIBRILLATION (3) CAD (coronary artery disease) Code(s): I25.10 - ATHSCL HEART DISEASE OF [place] CORONARY ARTERY W/O ANG PCTRS Qualifiers: Coronary Disease-Associated Artery/Lesion type: [place] artery [place] vs. transplanted heart: [place] heart Associated angina: without angina Qualified Code(s): I25.10 - Atherosclerotic heart disease of [place] coronary artery without angina pectoris (4) Hx of heart artery stent Code(s): Z95.5 - PRESENCE OF CORONARY ANGIOPLASTY IMPLANT AND GRAFT (5) HTN (hypertension) Code(s): I10 - ESSENTIAL (PRIMARY) HYPERTENSION Qualifiers: Hypertension type: essential hypertension Qualified Code(s): I10 - Essential (primary) hypertension (6) Pulmonary hypertension Code(s): I27.20 - PULMONARY HYPERTENSION, UNSPECIFIED (7) Anticoagulation management encounter Code(s): Z51.81 - ENCOUNTER FOR THERAPEUTIC DRUG LEVEL MONITORING; Z79.01 - RETANNED LEATHER ROLLER (CURRENT) USE OF ANTICOAGULANTS Assessment/Plan IMP: 1. Intractable neck pain, cervical and lumbar disc disease s/p Removal of hardware from C2-C7, laminectomy C2-T1 with posterior fusion of C2-T1. removal of hardware from L3-S1(retained screw at Right S1) laminectomy of L1/L2 and L2/L3 posterior fusion of L1 thru S1, repair of durotomy and cage placment L2-L3 2. PHTN, chronic 3. CAD s/p PCI 4. Permanent AF 5. Acute on chronic diastolic CHF 6. Moderate MR 7. Post op fever: cultures negative. 8. Anemia 9. Thrombocytosis REC: 1. Continue abx as per ID for suspected PNA. Chest CT planned. 2. Blood cultures remain negative; ID following. 3. H/H stable. 4. Transitioned back to oral AC. 6. Continue [place] for rate control. 8. ASA has been resumed (prior coronary PCI) 9. Continue Lasix 10. Continue PPI for GI prophylaxis 11. Elevated platelets: likely reactive. Heme consult appreciated.
[2019-01-09] MEDS: METOCLOPRAMIDE HCL INJECTION 10 MG/2 ML VIAL IVPB SCH ×2 (14:35→21:25)
[2019-01-09] MEDS ORDERED: POTASSIUM CHLORIDE TABS 20 MEQ TABLET.ER (FP) PO ONE (15:05)
[2019-01-09] MEDS: Methylnaltrexone Bromide 12 MG/0.6 ML KIT SQ SCH (15:51)
--- NOTE | 2019-01-09 21:56 | PN ---
Progress Note, Physician History of Present Illness: No new complaints - Current Medication List Current Medications: Active Medications Acetaminophen (Tylenol -) 650 mg PO Q6H PRN PRN Reason: PAIN LEVEL 1-3 Last Admin: 01/07/19 15:19 Dose: 650 mg Acetaminophen (Tylenol -) 650 mg PO Q8H PRN PRN Reason: PAIN SCALE 7-10 Last Admin: 01/09/19 08:41 Dose: 650 mg Apixaban (Eliquis -) 5 mg PO BID [facility] Last Admin: 01/09/19 21:25 Dose: 5 mg Aspirin (Ecotrin -) 81 mg PO DAILY [facility] Last Admin: 01/09/19 10:27 Dose: 81 mg Benzocaine/Menthol (Cepacol Lozenge -) 1 each MM PRN PRN PRN Reason: SORE THROAT Docusate Sodium (Colace -) 100 mg PO TID [facility] Last Admin: 01/09/19 21:26 Dose: Not Given Furosemide (Lasix -) 40 mg PO DAILY [facility] Last Admin: 01/09/19 10:27 Dose: 40 mg Gabapentin (Neurontin -) 300 mg PO TID [facility] Last Admin: 01/09/19 21:25 Dose: 300 mg Piperacillin Sod/Tazobactam (Sod 3.375 gm/ Dextrose) 50 mls @ 100 mls/hr IVPB Q8H-IV [facility]; Protocol Last Admin: 01/09/19 17:22 Dose: 100 mls/hr Methylnaltrexone [place] (Relistor -) 12 mg SQ DAILY [facility] Last Admin: 01/09/19 15:51 Dose: 12 mg Metoclopramide HCl (Reglan Injection -) 10 mg IVPB Q8H [facility] Last Admin: 01/09/19 21:25 Dose: 10 mg Metoprolol Tartrate (Lopressor -) 25 mg NGT BID [facility] Last Admin: 01/09/19 21:25 Dose: 25 mg Ondansetron HCl (Zofran Injection) 4 mg IVPUSH Q6H PRN PRN Reason: NAUSEA Oxycodone HCl (Roxicodone -) 10 mg PO Q6H PRN PRN Reason: PAIN SCALE 7-10 Last Admin: 01/09/19 08:40 Dose: 10 mg Pantoprazole Sodium (Protonix -) 40 mg PO DAILY [facility] Last Admin: 01/09/19 10:29 Dose: 40 mg Polyethylene Glycol (Miralax (For Daily Use) -) 17 gm PO BID [facility] Last Admin: 01/09/19 21:26 Dose: Not Given - Objective Vital Signs: Vital Signs Temperature 97.8 F 01/09/19 20:40 Pulse Rate 80 01/09/19 20:40 Respiratory Rate 18 01/09/19 20:40 Blood Pressure 119/69 01/09/19 20:40 O2 Sat by Pulse Oximetry (%) 96 01/09/19 09:00 Labs: CBC, BMP 01/09/19 06:00 01/09/19 06:00 INR, PTT INR 1.55 (0.83-1.09) H 12/29/18 05:30 Problem List - Problems (1) Pneumonia Assessment/Plan: Cont IV zosyn Monitor WBC WBC decreased Pt remains afebrile Code(s): J18.9 - PNEUMONIA, UNSPECIFIED ORGANISM (2) Back pain Assessment/Plan: 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, laminectomy C2-T1 with posterior fusion of C-T1, removal of hardware from L3-S1 (retained screw at right S1) laminectomy of L1/L2 and L2/L3 posterior fusion of L1 through S1, repair of durotomy and cage placement L2-L3 Cont PT Encourage ambulation Pt still requiring oxycodone for pain Cont stool softners Code(s): M54.9 - DORSALGIA, UNSPECIFIED (3) Acute on chronic diastolic (congestive) heart failure Assessment/Plan: Cont PO lasix Code(s): I50.33 - ACUTE ON CHRONIC DIASTOLIC (CONGESTIVE) HEART FAILURE (4) Afib Assessment/Plan: Cont eliquis Monitor H/H Heart rate controlled Code(s): I48.91 - UNSPECIFIED ATRIAL FIBRILLATION (5) Anemia Assessment/Plan: Acute blood loss anemia S/P blood transfusions Monitor H/H Code(s): D64.9 - ANEMIA, UNSPECIFIED (6) CAD (coronary artery disease) Assessment/Plan: Plavix was stopped Cont asa Pt had been on it for a yr s/p stent placement Code(s): I25.10 - ATHSCL HEART DISEASE OF [place] CORONARY ARTERY W/O ANG PCTRS Qualifiers: Coronary Disease-Associated Artery/Lesion type: [place] artery [place] vs. transplanted heart: [place] heart Associated angina: without angina Qualified Code(s): I25.10 - Atherosclerotic heart disease of [place] coronary artery without angina pectoris (7) GERD (gastroesophageal reflux disease) Code(s): K21.9 - GASTRO-ESOPHAGEAL REFLUX DISEASE WITHOUT ESOPHAGITIS (8) HLD (hyperlipidemia) Code(s): E78.5 - HYPERLIPIDEMIA, UNSPECIFIED (9) HTN (hypertension) Code(s): I10 - ESSENTIAL (PRIMARY) HYPERTENSION Qualifiers: Hypertension type: essential hypertension Qualified Code(s): I10 - Essential (primary) hypertension (10) Hx of heart artery stent Code(s): Z95.5 - PRESENCE OF CORONARY ANGIOPLASTY IMPLANT AND GRAFT (11) COPD (chronic obstructive pulmonary disease) Code(s): J44.9 - CHRONIC OBSTRUCTIVE PULMONARY DISEASE, UNSPECIFIED
[2019-01-10] MEDS ORDERED: DEXTROSE 5%-WATER - 50 ML IVPB ONE ×3 (01:24→17:29)
[2019-01-10] MEDS ORDERED: PIPERACILLIN/TAZOBACTAM 3.375 GM VIAL IVPB ONE ×3 (01:24→17:29)
[2019-01-10] MEDS: PIPERACILLIN/TAZOB 3.375 GM 3.375 GM in DEXTROSE 5%-WATER - 50 ML IVPB SCH ×3 (01:35→17:36)
[2019-01-10] MEDS: oxyCODONE HCL 5 MG TABLET PO PRN ×3 (02:06→22:40)
[2019-01-10] MEDS: GABAPENTIN 300 MG CAPSULE (FP) PO SCH ×3 (05:28→22:40)
[2019-01-10] MEDS: METOCLOPRAMIDE HCL INJECTION 10 MG/2 ML VIAL IVPB SCH ×3 (05:29→22:39)
[2019-01-10] MEDS: DOCUSATE SODIUM 100 MG CAPSULE (FP) PO SCH ×3 (05:31→22:40)
[2019-01-10 08:38] LABS: BASO % 0.6 % (0-2.0); EOS % 5.9 % (0-4.5); HEMATOCRIT 26.6 % (35.4-49); HEMOGLOBIN 8.4 GM/dL (11.7-16.9); MCH 30.1 pg (25.7-33.7); MCHC 31.8 g/dl (32.0-35.9); MEAN CELL VOLUME 94.6 fl (80-96); MEAN PLT VOLUME 6.3 fl (7.5-11.1); MONO % 9.4 % (3.8-10.2); NEUT % 70.1 % (42.8-82.8); PLATELET COUNT 725 K/MM3 (134-434); RBC 2.81 M/mm3 (4.00-5.60); WHITE BLOOD COUNT 11.2 K/mm3 (4.0-10.0)
[2019-01-10 09:08] LABS: ALBUMIN 2.5 g/dl (3.4-5.0); ALK PHOS 66 U/L (45-117); ANION GAP 8 MMOL/L (8-16); BILIRUBIN,TOTAL 0.4 mg/dL (0.2-1); BLOOD UREA NITROGEN 27 mg/dL (7-18); CALCIUM 8.4 mg/dL (8.5-10.1); CHLORIDE 100 mmol/L (98-107); CO2 30 mmol/L (21-32); CREATININE 1.3 mg/dL (0.55-1.3); GLUCOSE,RANDOM 84 mg/dL (74-106); POTASSIUM 3.9 mmol/L (3.5-5.1); SGOT/AST 17 U/L (15-37); SGPT/ALT 15 U/L (13-61); SODIUM 138 mmol/L (136-145); TOT PROT 4.9 g/dl (6.4-8.2)
[2019-01-10] MEDS ORDERED: PT OWN MED DRAWER 7, Y5N ONE ×2 (09:41→11:35)
[2019-01-10] MEDS: APIXABAN 5 MG TABLET PO SCH ×2 (09:44→22:40)
[2019-01-10] MEDS: FUROSEMIDE 40 MG TABLET (FP) PO SCH (09:44)
[2019-01-10] MEDS: ASPIRIN COATED 81 MG TABLET.EC PO SCH (09:44)
[2019-01-10] MEDS: POLYETHYLENE GLYCOL 3350 119 GM BTL PO SCH ×2 (09:44→22:42)
[2019-01-10] MEDS: PANTOPRAZOLE 40 MG TABLET (FP) PO SCH (09:46)
[2019-01-10] MEDS: METOPROLOL TARTRATE 25 MG TABLET (FP) NGT SCH ×2 (09:48→22:40)
[2019-01-10] MEDS: ACETAMINOPHEN 325 MG TABLET (FP) PO PRN ×3 (10:04→22:43)
--- NOTE | 2019-01-10 10:59 | PN ---
Progress Note (short form) - Note Progress Note: Resting in NAD. Reports hoarseness of voice and chest congestion. No acute distress. No chest pain. No fevers. Intake & Output 01/07/19 01/08/19 01/09/19 01/10/19 23:59 23:59 23:59 23:59 Intake Total 520 1030 1180 200 Output Total 950 Balance -430 1030 1180 200 Last Vital Signs Temp Pulse Resp BP Pulse Ox 98.2 F 83 18 111/62 96 01/10/19 08:00 01/10/19 08:00 01/10/19 08:00 01/10/19 08:00 01/09/19 21:00 Active Medications Acetaminophen (Tylenol -) 650 mg PO Q6H PRN PRN Reason: PAIN LEVEL 1-3 Last Admin: 01/10/19 10:04 Dose: 650 mg Acetaminophen (Tylenol -) 650 mg PO Q8H PRN PRN Reason: PAIN SCALE 7-10 Last Admin: 01/09/19 08:41 Dose: 650 mg Apixaban (Eliquis -) 5 mg PO BID [facility] Last Admin: 01/10/19 09:44 Dose: 5 mg Aspirin (Ecotrin -) 81 mg PO DAILY [facility] Last Admin: 01/10/19 09:44 Dose: 81 mg Benzocaine/Menthol (Cepacol Lozenge -) 1 each MM PRN PRN PRN Reason: SORE THROAT Docusate Sodium (Colace -) 100 mg PO TID [facility] Last Admin: 01/10/19 05:31 Dose: 100 mg Furosemide (Lasix -) 40 mg PO DAILY [facility] Last Admin: 01/10/19 09:44 Dose: 40 mg Gabapentin (Neurontin -) 300 mg PO TID [facility] Last Admin: 01/10/19 05:28 Dose: 300 mg Piperacillin Sod/Tazobactam (Sod 3.375 gm/ Dextrose) 50 mls @ 100 mls/hr IVPB Q8H-IV [facility]; Protocol Last Admin: 01/10/19 09:46 Dose: 100 mls/hr Methylnaltrexone [place] (Relistor -) 12 mg SQ DAILY [facility] Last Admin: 01/09/19 15:51 Dose: 12 mg Metoclopramide HCl (Reglan Injection -) 10 mg IVPB Q8H [facility] Last Admin: 01/10/19 05:29 Dose: 10 mg Metoprolol Tartrate (Lopressor -) 25 mg NGT BID [facility] Last Admin: 01/10/19 09:48 Dose: 25 mg Ondansetron HCl (Zofran Injection) 4 mg IVPUSH Q6H PRN PRN Reason: NAUSEA Oxycodone HCl (Roxicodone -) 10 mg PO Q6H PRN PRN Reason: PAIN SCALE 7-10 Last Admin: 01/10/19 10:06 Dose: 10 mg Pantoprazole Sodium (Protonix -) 40 mg PO DAILY [facility] Last Admin: 01/10/19 09:46 Dose: 40 mg Polyethylene Glycol (Miralax (For Daily Use) -) 17 gm PO BID [facility] Last Admin: 01/10/19 09:44 Dose: 17 grams Gen: NAD at rest Heart: RRR Lung: Bilateral coarse rhonchi, decreased breath sounds at the bases Abd: soft, nontender Ext: no edema Laboratory Results - last 24 hr 01/10/19 01/10/19 07:45 07:45 WBC 11.2 H RBC 2.81 L Hgb 8.4 L Hct 26.6 L MCV 94.6 MCH 30.1 MCHC 31.8 L RDW 17.0 H Plt Count 725 H D MPV 6.3 L Absolute Neuts (auto) 7.9 Neutrophils % 70.1 Lymphocytes % 14.0 D Monocytes % 9.4 Eosinophils % 5.9 H D Basophils % 0.6 Nucleated RBC % 0 Sodium 138 Potassium 3.9 Chloride 100 Carbon Dioxide 30 Anion Gap 8 BUN 27 H Creatinine 1.3 Creat Clearance w eGFR 54.11 Random Glucose 84 Calcium 8.4 L Total Bilirubin 0.4 AST 17 ALT 15 Alkaline Phosphatase 66 Total Protein 4.9 L Albumin 2.5 L A/P s/p CHELE C2-T1/L3-S1/Laminectomy/L1-S1 Posterior Fusion/Cage Placement/Durotomy repair S/P Acute Respiratory Failure Acute Blood Loss Anemia CAD Atrial Fibrillation Acute on Chronic Diastolic Heart Failure Volume Overload improving Pneumonia UTI COPD Rheumatoid Arthritis HTN Hyperlipidemia h/o Prostate Ca - BD TX BID and PRN - Incentive Spirometry - lasix - rate control - rehab/PT - DVT/GI prophylaxis - Enrique Hampton
[2019-01-10] MEDS ORDERED: ALBUTEROL SO4 0.083% IH SOL 2.5 MG/3 ML VIAL.NEB. NEB PRN (11:00)
[2019-01-10] MEDS: Methylnaltrexone Bromide 12 MG/0.6 ML KIT SQ SCH (11:47)
--- NOTE | 2019-01-10 15:33 | PN.GI ---
GI Progress Note Subjective: had BM yesterday, none today - Objective Vital Signs: Vital Signs Temperature 98.5 F 01/10/19 14:08 Pulse Rate 98 H 01/10/19 14:08 Respiratory Rate 20 01/10/19 14:08 Blood Pressure 102/59 L 01/10/19 14:08 O2 Sat by Pulse Oximetry (%) 100 01/10/19 09:00 Constitutional: Well Nourished Eyes: Yes: Conjunctiva Clear, Occular Prosthesis Neck: Yes: Supple Cardiovascular: Yes: Regular Rate and Rhythm Respiratory: Yes: CTA Bilaterally ...Auscultate: Yes: Hypoactive Bowel Sounds ...Palpate: Yes: Soft. 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
[2019-01-10] MEDS: ALBUTEROL SO4 2.5/IPRATROPIUM 0.5 INH SOL 3 ML VIAL.NEB. NEB SCH (20:03)
[2019-01-10] MEDS ORDERED: ACETAMINOPHEN 325 MG TABLET (FP) PO PRN (20:42)
--- NOTE | 2019-01-10 23:51 | PN ---
Progress Note, Physician History of Present Illness: No new complaints - Current Medication List Current Medications: Active Medications Acetaminophen (Tylenol -) 650 mg PO Q6H PRN PRN Reason: PAIN LEVEL 1-3 Last Admin: 01/10/19 22:43 Dose: 650 mg Acetaminophen (Tylenol -) 650 mg PO Q6H PRN PRN Reason: PAIN SCALE 7-10 Albuterol Sulfate (Ventolin 0.083% Nebulizer Soln -) 1 amp NEB Q4H PRN PRN Reason: SHORT OF BREATH/WHEEZING Albuterol/Ipratropium (Duoneb -) 1 amp NEB RBID [facility] Last Admin: 01/10/19 20:03 Dose: 1 amp Apixaban (Eliquis -) 5 mg PO BID [facility] Last Admin: 01/10/19 22:40 Dose: 5 mg Aspirin (Ecotrin -) 81 mg PO DAILY [facility] Last Admin: 01/10/19 09:44 Dose: 81 mg Benzocaine/Menthol (Cepacol Lozenge -) 1 each MM PRN PRN PRN Reason: SORE THROAT Docusate Sodium (Colace -) 100 mg PO TID [facility] Last Admin: 01/10/19 22:40 Dose: 100 mg Furosemide (Lasix -) 40 mg PO DAILY [facility] Last Admin: 01/10/19 09:44 Dose: 40 mg Gabapentin (Neurontin -) 300 mg PO TID [facility] Last Admin: 01/10/19 22:40 Dose: 300 mg Piperacillin Sod/Tazobactam (Sod 3.375 gm/ Dextrose) 50 mls @ 100 mls/hr IVPB Q8H-IV [facility]; Protocol Last Admin: 01/10/19 17:36 Dose: 100 mls/hr Methylnaltrexone [place] (Relistor -) 12 mg SQ DAILY [facility] Last Admin: 01/10/19 11:47 Dose: 12 mg Metoclopramide HCl (Reglan Injection -) 10 mg IVPB Q8H [facility] Last Admin: 01/10/19 22:39 Dose: 10 mg Metoprolol Tartrate (Lopressor -) 25 mg NGT BID [facility] Last Admin: 01/10/19 22:40 Dose: 25 mg Ondansetron HCl (Zofran Injection) 4 mg IVPUSH Q6H PRN PRN Reason: NAUSEA Oxycodone HCl (Roxicodone -) 10 mg PO Q6H PRN PRN Reason: PAIN LEVEL 7 - 10 Last Admin: 01/10/19 22:40 Dose: 10 mg Pantoprazole Sodium (Protonix -) 40 mg PO DAILY [facility] Last Admin: 01/10/19 09:46 Dose: 40 mg Polyethylene Glycol (Miralax (For Daily Use) -) 17 gm PO BID [facility] Last Admin: 01/10/19 22:42 Dose: 17 grams - Objective Vital Signs: Vital Signs Temperature 98.8 F 01/10/19 17:42 Pulse Rate 82 01/10/19 17:42 Respiratory Rate 20 01/10/19 17:42 Blood Pressure 104/60 01/10/19 17:42 O2 Sat by Pulse Oximetry (%) 100 01/10/19 09:00 Constitutional: Yes: Well Nourished Cardiovascular: Yes: Pulse Irregular Respiratory: Yes: WNL, Regular, CTA Bilaterally Gastrointestinal: Yes: WNL, Normal Bowel Sounds, Soft Labs: CBC, BMP 01/10/19 07:45 01/10/19 07:45 INR, PTT INR 1.55 (0.83-1.09) H 12/29/18 05:30 Problem List - Problems (1) Pneumonia Assessment/Plan: Cont IV zosyn Monitor WBC WBC still elevated Pt remains afebrile Will check ct scan chest Code(s): J18.9 - PNEUMONIA, UNSPECIFIED ORGANISM (2) Back pain Assessment/Plan: 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, laminectomy C2-T1 with posterior fusion of C-T1, removal of hardware from L3-S1 (retained screw at right S1) laminectomy of L1/L2 and L2/L3 posterior fusion of L1 through S1, repair of durotomy and cage placement L2-L3 Cont PT Encourage ambulation Pt still requiring oxycodone for pain Cont stool softners Code(s): M54.9 - DORSALGIA, UNSPECIFIED (3) Acute on chronic diastolic (congestive) heart failure Assessment/Plan: Cont PO lasix Code(s): I50.33 - ACUTE ON CHRONIC DIASTOLIC (CONGESTIVE) HEART FAILURE (4) Afib Assessment/Plan: Cont eliquis Monitor H/H Heart rate controlled Code(s): I48.91 - UNSPECIFIED ATRIAL FIBRILLATION (5) Anemia Assessment/Plan: Acute blood loss anemia S/P blood transfusions Monitor H/H Code(s): D64.9 - ANEMIA, UNSPECIFIED (6) CAD (coronary artery disease) Assessment/Plan: Plavix was stopped Cont asa Pt had been on it for a yr s/p stent placement Code(s): I25.10 - ATHSCL HEART DISEASE OF [place] CORONARY ARTERY W/O ANG PCTRS Qualifiers: Coronary Disease-Associated Artery/Lesion type: [place] artery [place] vs. transplanted heart: [place] heart Associated angina: without angina Qualified Code(s): I25.10 - Atherosclerotic heart disease of [place] coronary artery without angina pectoris (7) GERD (gastroesophageal reflux disease) Code(s): K21.9 - GASTRO-ESOPHAGEAL REFLUX DISEASE WITHOUT ESOPHAGITIS (8) HLD (hyperlipidemia) Code(s): E78.5 - HYPERLIPIDEMIA, UNSPECIFIED (9) HTN (hypertension) Code(s): I10 - ESSENTIAL (PRIMARY) HYPERTENSION Qualifiers: Hypertension type: essential hypertension Qualified Code(s): I10 - Essential (primary) hypertension (10) Hx of heart artery stent Code(s): Z95.5 - PRESENCE OF CORONARY ANGIOPLASTY IMPLANT AND GRAFT (11) COPD (chronic obstructive pulmonary disease) Code(s): J44.9 - CHRONIC OBSTRUCTIVE PULMONARY DISEASE, UNSPECIFIED
[2019-01-11] MEDS ORDERED: PIPERACILLIN/TAZOBACTAM 3.375 GM VIAL IVPB ONE ×3 (01:08→16:48)
[2019-01-11] MEDS ORDERED: DEXTROSE 5%-WATER - 50 ML IVPB ONE ×3 (01:08→16:49)
[2019-01-11] MEDS: PIPERACILLIN/TAZOB 3.375 GM 3.375 GM in DEXTROSE 5%-WATER - 50 ML IVPB SCH ×2 (01:47→10:23)
[2019-01-11] MEDS: oxyCODONE HCL 5 MG TABLET PO PRN ×3 (06:35→21:51)
[2019-01-11] MEDS: METOCLOPRAMIDE HCL INJECTION 10 MG/2 ML VIAL IVPB SCH ×3 (06:35→21:49)
[2019-01-11] MEDS: GABAPENTIN 300 MG CAPSULE (FP) PO SCH ×3 (06:35→21:49)
[2019-01-11] MEDS: DOCUSATE SODIUM 100 MG CAPSULE (FP) PO SCH ×3 (06:35→21:49)
[2019-01-11] MEDS: ALBUTEROL SO4 2.5/IPRATROPIUM 0.5 INH SOL 3 ML VIAL.NEB. NEB SCH ×4 (07:15→20:50)
[2019-01-11 07:27] LABS: BASO % 0.6 % (0-2.0); EOS % 6.2 % (0-4.5); HEMOGLOBIN 8.5 GM/dL (11.7-16.9); LYMPH % 17.5 % (8-40); MCH 30.6 pg (25.7-33.7); MCHC 32.6 g/dl (32.0-35.9); MEAN CELL VOLUME 93.6 fl (80-96); MEAN PLT VOLUME 6.5 fl (7.5-11.1); MONO % 9.5 % (3.8-10.2); NEUT % 66.2 % (42.8-82.8); PLATELET COUNT 651 K/MM3 (134-434); RBC 2.78 M/mm3 (4.00-5.60); WHITE BLOOD COUNT 10.5 K/mm3 (4.0-10.0)
[2019-01-11 08:01] LABS: ALBUMIN 2.4 g/dl (3.4-5.0); ALK PHOS 67 U/L (45-117); ANION GAP 7 MMOL/L (8-16); BILIRUBIN,TOTAL 0.4 mg/dL (0.2-1); BLOOD UREA NITROGEN 28 mg/dL (7-18); CALCIUM 8.6 mg/dL (8.5-10.1); CHLORIDE 100 mmol/L (98-107); CO2 30 mmol/L (21-32); CREATININE 1.4 mg/dL (0.55-1.3); GLUCOSE,RANDOM 98 mg/dL (74-106); POTASSIUM 3.8 mmol/L (3.5-5.1); SGOT/AST 10 U/L (15-37); SGPT/ALT 15 U/L (13-61); SODIUM 137 mmol/L (136-145); TOT PROT 5.1 g/dl (6.4-8.2)
--- NOTE | 2019-01-11 09:37 | PN ---
Progress Note, Physician History of Present Illness: GI FOLLOW UP NOTE Patient examined and case discussed with Dr Zurita Patient examined and complain of upper abdominal tightness and dysphagia. Patient states he had a small bowel movement yesterday. Denies nausea, vomiting , diarrhea. Abdominal xray shows general abdominal distention which could indicate ileus though developing obstruction can't be excluded, without free air , distended bowel. - Current Medication List Current Medications: Active Medications Acetaminophen (Tylenol -) 650 mg PO Q6H PRN PRN Reason: PAIN LEVEL 1-3 Last Admin: 01/10/19 22:43 Dose: 650 mg Acetaminophen (Tylenol -) 650 mg PO Q6H PRN PRN Reason: PAIN SCALE 7-10 Albuterol Sulfate (Ventolin 0.083% Nebulizer Soln -) 1 amp NEB Q4H PRN PRN Reason: SHORT OF BREATH/WHEEZING Albuterol/Ipratropium (Duoneb -) 1 amp NEB RBID [facility] Last Admin: 01/11/19 07:15 Dose: 1 amp Apixaban (Eliquis -) 5 mg PO BID [facility] Last Admin: 01/10/19 22:40 Dose: 5 mg Aspirin (Ecotrin -) 81 mg PO DAILY [facility] Last Admin: 01/10/19 09:44 Dose: 81 mg Benzocaine/Menthol (Cepacol Lozenge -) 1 each MM PRN PRN PRN Reason: SORE THROAT Docusate Sodium (Colace -) 100 mg PO TID [facility] Last Admin: 01/11/19 06:35 Dose: 100 mg Furosemide (Lasix -) 40 mg PO DAILY [facility] Last Admin: 01/10/19 09:44 Dose: 40 mg Gabapentin (Neurontin -) 300 mg PO TID [facility] Last Admin: 01/11/19 06:35 Dose: 300 mg Piperacillin Sod/Tazobactam (Sod 3.375 gm/ Dextrose) 50 mls @ 100 mls/hr IVPB Q8H-IV [facility]; Protocol Last Admin: 01/11/19 01:47 Dose: 100 mls/hr Methylnaltrexone [place] (Relistor -) 12 mg SQ DAILY [facility] Last Admin: 01/10/19 11:47 Dose: 12 mg Metoclopramide HCl (Reglan Injection -) 10 mg IVPB Q8H [facility] Last Admin: 01/11/19 06:35 Dose: 10 mg Metoprolol Tartrate (Lopressor -) 25 mg NGT BID [facility] Last Admin: 01/10/19 22:40 Dose: 25 mg Ondansetron HCl (Zofran Injection) 4 mg IVPUSH Q6H PRN PRN Reason: NAUSEA Oxycodone HCl (Roxicodone -) 10 mg PO Q6H PRN PRN Reason: PAIN LEVEL 7 - 10 Last Admin: 01/11/19 06:35 Dose: 10 mg Pantoprazole Sodium (Protonix -) 40 mg PO DAILY [facility] Last Admin: 01/10/19 09:46 Dose: 40 mg Polyethylene Glycol (Miralax (For Daily Use) -) 17 gm PO BID [facility] Last Admin: 01/10/19 22:42 Dose: 17 grams - Objective Vital Signs: Vital Signs Temperature 98 F 01/11/19 06:00 Pulse Rate 76 01/11/19 06:00 Respiratory Rate 20 01/11/19 06:00 Blood Pressure 102/66 01/11/19 06:00 O2 Sat by Pulse Oximetry (%) 100 01/10/19 09:00 Constitutional: Yes: No Distress, Calm Eyes: Yes: Conjunctiva Clear HENT: Yes: Atraumatic Cardiovascular: Yes: Regular Rate and Rhythm Respiratory: Yes: On Nasal O2, Rhonchi (B/L) Gastrointestinal: Yes: Normal Bowel Sounds, Soft, Other (high tympany). No: WNL , Abdomen, Obese, Ascites, Distention, Hematemesis, Hemorrhoids, Hepatomegaly, Hernia, Hyperactive Bowel Sounds, Hypoactive Bowel Sounds, Melena, Palpable Mass , Pulsatile Mass, Rectal Bleeding, Splenomegaly, Tenderness, Tenderness, Epigastrium, Tenderness, Rebound, Vomiting Neurological: Yes: Alert, Oriented Psychiatric: Yes: Alert, Oriented Labs: CBC, BMP 01/11/19 06:30 01/11/19 06:30 INR, PTT INR 1.55 (0.83-1.09) H 12/29/18 05:30 Problem List - Problems (1) Pseudo-obstruction of intestine Assessment/Plan: R> continue Relistor >Abdomen and Pelvic CT scan without contrast ordered >change diet to low fiber, lactose free >start on xifaxin 550mg TID and Creon 36,000 units TID AC Code(s): K59.8 - OTHER SPECIFIED FUNCTIONAL INTESTINAL DISORDERS
--- NOTE | 2019-01-11 09:42 | PN ---
Progress Note (short form) - Note Progress Note: Resting in NAD. Still with hoarseness of voice and chest congestion, but a little less. No acute distress. No chest pain. No fevers. Intake & Output 01/08/19 01/09/19 01/10/19 01/11/19 23:59 23:59 23:59 23:59 Intake Total 1030 1180 1330 Balance 1030 1180 1330 Last Vital Signs Temp Pulse Resp BP Pulse Ox 98 F 76 20 102/66 100 01/11/19 06:00 01/11/19 06:00 01/11/19 06:00 01/11/19 06:00 01/10/19 09:00 Active Medications Acetaminophen (Tylenol -) 650 mg PO Q6H PRN PRN Reason: PAIN LEVEL 1-3 Last Admin: 01/10/19 22:43 Dose: 650 mg Acetaminophen (Tylenol -) 650 mg PO Q6H PRN PRN Reason: PAIN SCALE 7-10 Albuterol Sulfate (Ventolin 0.083% Nebulizer Soln -) 1 amp NEB Q4H PRN PRN Reason: SHORT OF BREATH/WHEEZING Albuterol/Ipratropium (Duoneb -) 1 amp NEB RBID [facility] Last Admin: 01/11/19 07:15 Dose: 1 amp Apixaban (Eliquis -) 5 mg PO BID [facility] Last Admin: 01/10/19 22:40 Dose: 5 mg Aspirin (Ecotrin -) 81 mg PO DAILY [facility] Last Admin: 01/10/19 09:44 Dose: 81 mg Benzocaine/Menthol (Cepacol Lozenge -) 1 each MM PRN PRN PRN Reason: SORE THROAT Docusate Sodium (Colace -) 100 mg PO TID [facility] Last Admin: 01/11/19 06:35 Dose: 100 mg Furosemide (Lasix -) 40 mg PO DAILY [facility] Last Admin: 01/10/19 09:44 Dose: 40 mg Gabapentin (Neurontin -) 300 mg PO TID [facility] Last Admin: 01/11/19 06:35 Dose: 300 mg Piperacillin Sod/Tazobactam (Sod 3.375 gm/ Dextrose) 50 mls @ 100 mls/hr IVPB Q8H-IV [facility]; Protocol Last Admin: 01/11/19 01:47 Dose: 100 mls/hr Methylnaltrexone [place] (Relistor -) 12 mg SQ DAILY [facility] Last Admin: 01/10/19 11:47 Dose: 12 mg Metoclopramide HCl (Reglan Injection -) 10 mg IVPB Q8H [facility] Last Admin: 01/11/19 06:35 Dose: 10 mg Metoprolol Tartrate (Lopressor -) 25 mg NGT BID [facility] Last Admin: 01/10/19 22:40 Dose: 25 mg Ondansetron HCl (Zofran Injection) 4 mg IVPUSH Q6H PRN PRN Reason: NAUSEA Oxycodone HCl (Roxicodone -) 10 mg PO Q6H PRN PRN Reason: PAIN LEVEL 7 - 10 Last Admin: 01/11/19 06:35 Dose: 10 mg Pancrelipase (Creon Dr 36,000 Units Capsule) 1 cap PO TIDCM [facility] Pantoprazole Sodium (Protonix -) 40 mg PO DAILY [facility] Last Admin: 01/10/19 09:46 Dose: 40 mg Polyethylene Glycol (Miralax (For Daily Use) -) 17 gm PO BID [facility] Last Admin: 01/10/19 22:42 Dose: 17 grams Rifaximin (Xifaxan -) 550 mg PO TID [facility] Gen: NAD at rest Heart: RRR Lung: Bilateral coarse rhonchi, decreased breath sounds at the bases Abd: soft, nontender Ext: no edema Laboratory Results - last 24 hr 01/10/19 01/11/19 01/11/19 07:45 06:30 06:30 WBC 11.2 H 10.5 H RBC 2.81 L 2.78 L Hgb 8.4 L 8.5 L Hct 26.6 L 26.0 L MCV 94.6 93.6 MCH 30.1 30.6 MCHC 31.8 L 32.6 RDW 17.0 H 17.0 H Plt Count 725 H D 651 H MPV 6.3 L 6.5 L Absolute Neuts (auto) 7.9 7.0 Neutrophils % 70.1 66.2 Lymphocytes % 14.0 D 17.5 D Monocytes % 9.4 9.5 Eosinophils % 5.9 H D 6.2 H Basophils % 0.6 0.6 Nucleated RBC % 0 0 Sodium 137 Potassium 3.8 Chloride 100 Carbon Dioxide 30 Anion Gap 7 L BUN 28 H Creatinine 1.4 H Creat Clearance w eGFR 49.68 Random Glucose 98 Calcium 8.6 Total Bilirubin 0.4 AST 10 L ALT 15 Alkaline Phosphatase 67 Total Protein 5.1 L Albumin 2.4 L A/P s/p CHELE C2-T1/L3-S1/Laminectomy/L1-S1 Posterior Fusion/Cage Placement/Durotomy repair S/P Acute Respiratory Failure Acute Blood Loss Anemia CAD Atrial Fibrillation Acute on Chronic Diastolic Heart Failure Volume Overload improving Pneumonia UTI COPD Rheumatoid Arthritis HTN Hyperlipidemia h/o Prostate Ca - Increase BD TX to QID and PRN - Incentive Spirometry - lasix - rate control - rehab/PT - DVT/GI prophylaxis - Enrique Hampton
[2019-01-11] MEDS: PANTOPRAZOLE 40 MG TABLET (FP) PO SCH (10:23)
[2019-01-11] MEDS: ASPIRIN COATED 81 MG TABLET.EC PO SCH (10:23)
[2019-01-11] MEDS: APIXABAN 5 MG TABLET PO SCH ×2 (10:23→21:49)
[2019-01-11] MEDS: FUROSEMIDE 40 MG TABLET (FP) PO SCH (10:23)
[2019-01-11] MEDS: METOPROLOL TARTRATE 25 MG TABLET (FP) NGT SCH ×2 (10:23→21:49)
[2019-01-11] MEDS: Methylnaltrexone Bromide 12 MG/0.6 ML KIT SQ SCH (12:06)
[2019-01-11] MEDS: POLYETHYLENE GLYCOL 3350 119 GM BTL PO SCH ×2 (12:07→21:48)
[2019-01-11] MEDS ORDERED: PT OWN MED DRAWER 7, Y5N ONE (12:08)
[2019-01-11] MEDS: LIPASE/PROTEASE/AMYLASE 36,000 UNIT CAPSULE PO SCH ×2 (12:09→17:18)
--- NOTE | 2019-01-11 14:52 | PN ---
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 Chart reviewed and discussed with family who report good tolerance. Pt down for CT. Hoarseness and chest congestion reported. Suggest MBS
--- NOTE | 2019-01-11 14:56 | SURG ---
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 exploration of spinal fusion 2. removal of hardware 3. local autograft 4. Posterior segmental instrumentation C2-T1(technically challenging) 5. C2 laminectomy 6. Bilateral reoperative C3 Laminectomy 7. Bilateral reoperative C4 Laminectomy 8. Bilateral reoperative C5 Laminectomy 9. Bilateral reoperative C6 Laminectomy 10. C7 Laminectomy 11. T1 Laminectomy 12. C7 Posterior Osteotomy 13. T1 Posterior Osteotomy 14. C2-3 Posterior/Lateral Arthrodesis 15. C3-4 Posterior/Lateral Arthrodesis 16. C4-5 Posterior/Lateral Arthrodesis 17. C5-6 Posterior/Lateral Arthrodesis 18. C6-7 Posterior/Lateral Arthrodesis 19. C7T1 Posterior/Lateral Arthrodesis 20. Bilateral Soft Tissue advancement flaps(50cm2) 21. [place] [employer] [place] I was present for the entirety of the operative procedure. For further detail, please refer to operative report.
[2019-01-11] MEDS: RIFAXIMIN 550 MG TABLET (UD) PO SCH ×2 (15:00→21:49)
--- NOTE | 2019-01-11 15:23 | SURG ---
Surgery Butter Wrapper Note Butter Wrapper: Gladys Lowery PA-C Date of Service: 12/22/18 Diagnosis: Lumbar instability Procedure: 1. Bilateral laminectomies L1-2 2. Bilateral laminectomies L2-3 3. Bilateral laminectomies L3-4 4. Bilateral laminectomies L4-5 5. Bilateral laminectomies L5-S1 6. L1-2 transpedicular approach 7. L2-3 tranpedicular approach 8. microdissection 9. exploration of spinal fusion 11. Correction of deformity 12. Interbody Cage L2-3 13. Interbody and Posterior/lateral arthrodesis L2-3 14. Posterior/Lateral arthrodesis L1-2 15. Posterior/Lateral arthrodesis L3-4 16. Posterior/Lateral arthrodesis L4-5 17. Posterior/Lateral arthrodesis L5-S1 18. L1-S1 Posterior Segmental Instrumentation 19. Local autograft 20. L1 Osteotomy 21. L2 Osteotomy 22. L3 Osteotomy 23. Removal Posterior Segmental Instrumentation 24. Bilateral soft tissue advancement flaps (50cm2) I was present for the entirety of the operative procedure. For further detail, please refer to operative report. Visit type - Case Type Case Type: Scheduled - Emergency Emergency Visit: No - New patient This patient is new to me today: Yes Date on this admission: 01/11/19
--- NOTE | 2019-01-11 17:06 | PN ---
Progress Note, Physician History of Present Illness: AWAKE, ALERT LESS NECK PAIN NO C/O CHEST PAIN, DYSPNEA AFEBRILE WBC IMPROVED - Current Medication List Current Medications: Active Medications Acetaminophen (Tylenol -) 650 mg PO Q6H PRN PRN Reason: PAIN LEVEL 1-3 Last Admin: 01/10/19 22:43 Dose: 650 mg Acetaminophen (Tylenol -) 650 mg PO Q6H PRN PRN Reason: PAIN SCALE 7-10 Albuterol Sulfate (Ventolin 0.083% Nebulizer Soln -) 1 amp NEB Q4H PRN PRN Reason: SHORT OF BREATH/WHEEZING Albuterol/Ipratropium (Duoneb -) 1 amp NEB RQID [facility] Last Admin: 01/11/19 15:28 Dose: 1 amp Apixaban (Eliquis -) 5 mg PO BID [facility] Last Admin: 01/11/19 10:23 Dose: 5 mg Aspirin (Ecotrin -) 81 mg PO DAILY [facility] Last Admin: 01/11/19 10:23 Dose: 81 mg Benzocaine/Menthol (Cepacol Lozenge -) 1 each MM PRN PRN PRN Reason: SORE THROAT Docusate Sodium (Colace -) 100 mg PO TID [facility] Last Admin: 01/11/19 15:01 Dose: 100 mg Furosemide (Lasix -) 40 mg PO DAILY [facility] Last Admin: 01/11/19 10:23 Dose: 40 mg Gabapentin (Neurontin -) 300 mg PO TID [facility] Last Admin: 01/11/19 15:01 Dose: 300 mg Piperacillin Sod/Tazobactam (Sod 3.375 gm/ Dextrose) 50 mls @ 100 mls/hr IVPB Q8H-IV [facility]; Protocol Last Admin: 01/11/19 10:23 Dose: 100 mls/hr Methylnaltrexone [place] (Relistor -) 12 mg SQ DAILY [facility] Last Admin: 01/11/19 12:06 Dose: 12 mg Metoclopramide HCl (Reglan Injection -) 10 mg IVPB Q8H [facility] Last Admin: 01/11/19 15:00 Dose: 10 mg Metoprolol Tartrate (Lopressor -) 25 mg NGT BID [facility] Last Admin: 01/11/19 10:23 Dose: 25 mg Ondansetron HCl (Zofran Injection) 4 mg IVPUSH Q6H PRN PRN Reason: NAUSEA Oxycodone HCl (Roxicodone -) 10 mg PO Q6H PRN PRN Reason: PAIN LEVEL 7 - 10 Last Admin: 01/11/19 13:49 Dose: 10 mg Pancrelipase (Creon Dr 36,000 Units Capsule) 1 cap PO TIDCM [facility] Last Admin: 01/11/19 12:09 Dose: 1 cap Pantoprazole Sodium (Protonix -) 40 mg PO DAILY [facility] Last Admin: 01/11/19 10:23 Dose: 40 mg Polyethylene Glycol (Miralax (For Daily Use) -) 17 gm PO BID [facility] Last Admin: 01/11/19 12:07 Dose: Not Given Rifaximin (Xifaxan -) 550 mg PO TID [facility] Last Admin: 01/11/19 15:00 Dose: 550 mg - Objective Vital Signs: Vital Signs Temperature 97.6 F 01/11/19 14:00 Pulse Rate 80 01/11/19 14:00 Respiratory Rate 19 01/11/19 14:00 Blood Pressure 119/66 01/11/19 14:00 O2 Sat by Pulse Oximetry (%) 100 01/10/19 09:00 Constitutional: Yes: No Distress Cardiovascular: Yes: Regular Rate and Rhythm, S1, S2 Respiratory: Yes: Diminished Gastrointestinal: Yes: Normal Bowel Sounds, Soft Labs: CBC, BMP 01/11/19 06:30 01/11/19 06:30 INR, PTT INR 1.55 (0.83-1.09) H 12/29/18 05:30 Assessment/Plan RLL PNEUMONIA POST OP SPINAL SURGERY DAY # 10 ZOSYN D/C ANTIBIOTIC, OBSERVE OFF
--- NOTE | 2019-01-11 17:37 | PN ---
Progress Note (short form) - Note Progress Note: s: no chest pain, sob palps dizzy Current Medications Generic Name Dose Route Start Last Admin Trade Name Freq PRN Reason Stop Dose Admin Acetaminophen 650 mg 12/30/18 20:47 01/10/19 22:43 Tylenol - PO 650 mg Q6H PRN Administration PAIN LEVEL 1-3 Acetaminophen 650 mg 01/10/19 20:42 Tylenol - PO Q6H PRN PAIN SCALE 7-10 Albuterol Sulfate 1 amp 01/10/19 11:00 Ventolin 0.083% Nebulizer Soln - NEB Q4H PRN SHORT OF BREATH/WHEEZING Albuterol/Ipratropium 1 amp 01/11/19 12:00 01/11/19 15:28 Duoneb - NEB 1 amp RQID [facility] Administration Apixaban 5 mg 12/30/18 22:00 01/11/19 10:23 Eliquis - PO 5 mg BID [facility] Administration Aspirin 81 mg 12/31/18 10:00 01/11/19 10:23 Ecotrin - PO 81 mg DAILY [facility] Administration Benzocaine/Menthol 1 each 12/30/18 20:47 Cepacol Lozenge - MM PRN PRN SORE THROAT Docusate Sodium 100 mg 01/03/19 22:00 01/11/19 15:01 Colace - PO 100 mg TID [facility] Administration Furosemide 40 mg 01/04/19 10:00 01/11/19 10:23 Lasix - PO 40 mg DAILY [facility] Administration Gabapentin 300 mg 12/30/18 22:00 01/11/19 15:01 Neurontin - PO 300 mg TID [facility] Administration Methylnaltrexone [place] 12 mg 01/09/19 13:30 01/11/19 12:06 Relistor - SQ 12 mg DAILY [facility] Administration Metoclopramide HCl 10 mg 01/09/19 13:00 01/11/19 15:00 Reglan Injection - IVPB 10 mg Q8H [facility] Administration Metoprolol Tartrate 25 mg 12/30/18 22:00 01/11/19 10:23 Lopressor - NGT 25 mg BID [facility] Administration Ondansetron HCl 4 mg 12/30/18 20:47 Zofran Injection IVPUSH Q6H PRN NAUSEA Oxycodone HCl 10 mg 01/10/19 20:40 01/11/19 13:49 Roxicodone - PO 10 mg Q6H PRN Administration PAIN LEVEL 7 - 10 Pancrelipase 1 cap 01/11/19 12:00 01/11/19 17:18 Credimitri Ken 36,000 Units Capsule PO 1 cap TIDCM [facility] Administration Pantoprazole Sodium 40 mg 01/04/19 10:00 01/11/19 10:23 Protonix - PO 40 mg DAILY [facility] Administration Polyethylene Glycol 17 gm 01/05/19 22:00 01/11/19 12:07 Miralax (For Daily Use) - PO Not Given BID [facility] Rifaximin 550 mg 01/11/19 14:00 01/11/19 15:00 Xifaxan - PO 550 mg TID [facility] Administration - Objective Vital Signs: Vital Signs Period Temp Pulse Resp BP Sys/Dyson Pulse Ox Last 24 Hr 97.6 F-98.9 F 76-86 18-20 102-139/59-66 Constitutional: Yes: Calm Cardiovascular: Yes: Pulse Irregular Respiratory: Yes: Other (scattered, no rales. No wheezing) Gastrointestinal: Yes: Soft (NT) Edema: Yes Edema: LLE: 1+ (ankle), RLE: 1+ (ankle) Neurological: Yes: Alert, Oriented ...Motor Strength: WNL Labs: CBC, BMP 01/11/19 06:30 01/11/19 06:30 Problem List - Problems (1) Back pain Code(s): M54.9 - DORSALGIA, UNSPECIFIED (2) Paroxysmal atrial fibrillation Code(s): I48.0 - PAROXYSMAL ATRIAL FIBRILLATION (3) CAD (coronary artery disease) Code(s): I25.10 - ATHSCL HEART DISEASE OF [place] CORONARY ARTERY W/O ANG PCTRS Qualifiers: Coronary Disease-Associated Artery/Lesion type: [place] artery [place] vs. transplanted heart: [place] heart Associated angina: without angina Qualified Code(s): I25.10 - Atherosclerotic heart disease of [place] coronary artery without angina pectoris (4) Hx of heart artery stent Code(s): Z95.5 - PRESENCE OF CORONARY ANGIOPLASTY IMPLANT AND GRAFT (5) HTN (hypertension) Code(s): I10 - ESSENTIAL (PRIMARY) HYPERTENSION Qualifiers: Hypertension type: essential hypertension Qualified Code(s): I10 - Essential (primary) hypertension (6) Pulmonary hypertension Code(s): I27.20 - PULMONARY HYPERTENSION, UNSPECIFIED (7) Anticoagulation management encounter Code(s): Z51.81 - ENCOUNTER FOR THERAPEUTIC DRUG LEVEL MONITORING; Z79.01 - SITE PHYSICIAN (CURRENT) USE OF ANTICOAGULANTS Assessment/Plan IMP: 1. Intractable neck pain, cervical and lumbar disc disease s/p Removal of hardware from C2-C7, laminectomy C2-T1 with posterior fusion of C2-T1. removal of hardware from L3-S1(retained screw at Right S1) laminectomy of L1/L2 and L2/L3 posterior fusion of L1 thru S1, repair of durotomy and cage placment L2-L3 2. PHTN, chronic 3. CAD s/p PCI 4. Permanent AF 5. Acute on chronic diastolic CHF 6. Moderate MR 7. Post op fever: cultures negative. 8. Anemia 9. Thrombocytosis REC: 1. abx as per ID. 2. Blood cultures remain negative; ID following. 3. H/H stable. 4. Transitioned back to oral AC. 6. Continue [place] for rate control. 8. ASA has been resumed (prior coronary PCI) 9. Continue Lasix 10: GI following for abd pain.
--- NOTE | 2019-01-11 19:04 | PN ---
Progress Note, Physician - Current Medication List Current Medications: Active Medications Acetaminophen (Tylenol -) 650 mg PO Q6H PRN PRN Reason: PAIN LEVEL 1-3 Last Admin: 01/10/19 22:43 Dose: 650 mg Acetaminophen (Tylenol -) 650 mg PO Q6H PRN PRN Reason: PAIN SCALE 7-10 Albuterol Sulfate (Ventolin 0.083% Nebulizer Soln -) 1 amp NEB Q4H PRN PRN Reason: SHORT OF BREATH/WHEEZING Albuterol/Ipratropium (Duoneb -) 1 amp NEB RQID [facility] Last Admin: 01/11/19 15:28 Dose: 1 amp Apixaban (Eliquis -) 5 mg PO BID [facility] Last Admin: 01/11/19 10:23 Dose: 5 mg Aspirin (Ecotrin -) 81 mg PO DAILY [facility] Last Admin: 01/11/19 10:23 Dose: 81 mg Benzocaine/Menthol (Cepacol Lozenge -) 1 each MM PRN PRN PRN Reason: SORE THROAT Docusate Sodium (Colace -) 100 mg PO TID [facility] Last Admin: 01/11/19 15:01 Dose: 100 mg Furosemide (Lasix -) 40 mg PO DAILY [facility] Last Admin: 01/11/19 10:23 Dose: 40 mg Gabapentin (Neurontin -) 300 mg PO TID [facility] Last Admin: 01/11/19 15:01 Dose: 300 mg Methylnaltrexone Hood (Relistor -) 12 mg SQ DAILY [facility] Last Admin: 01/11/19 12:06 Dose: 12 mg Metoclopramide HCl (Reglan Injection -) 10 mg IVPB Q8H [facility] Last Admin: 01/11/19 15:00 Dose: 10 mg Metoprolol Tartrate (Lopressor -) 25 mg NGT BID [facility] Last Admin: 01/11/19 10:23 Dose: 25 mg Ondansetron HCl (Zofran Injection) 4 mg IVPUSH Q6H PRN PRN Reason: NAUSEA Oxycodone HCl (Roxicodone -) 10 mg PO Q6H PRN PRN Reason: PAIN LEVEL 7 - 10 Last Admin: 01/11/19 13:49 Dose: 10 mg Pancrelipase (Creon Dr 36,000 Units Capsule) 1 cap PO TIDCM [facility] Last Admin: 01/11/19 17:18 Dose: 1 cap Pantoprazole Sodium (Protonix -) 40 mg PO DAILY [facility] Last Admin: 01/11/19 10:23 Dose: 40 mg Polyethylene Glycol (Miralax (For Daily Use) -) 17 gm PO BID [facility] Last Admin: 01/11/19 12:07 Dose: Not Given Rifaximin (Xifaxan -) 550 mg PO TID [facility] Last Admin: 01/11/19 15:00 Dose: 550 mg - Objective Vital Signs: Vital Signs Temperature 97.9 F 01/11/19 17:22 Pulse Rate 85 01/11/19 17:22 Respiratory Rate 20 01/11/19 17:22 Blood Pressure 111/66 01/11/19 17:22 O2 Sat by Pulse Oximetry (%) 100 01/10/19 09:00 Labs: CBC, BMP 01/11/19 06:30 01/11/19 06:30 INR, PTT INR 1.55 (0.83-1.09) H 12/29/18 05:30 Problem List - Problems (1) Pneumonia Code(s): J18.9 - PNEUMONIA, UNSPECIFIED ORGANISM (2) Back pain Code(s): M54.9 - DORSALGIA, UNSPECIFIED (3) Acute on chronic diastolic (congestive) heart failure Code(s): I50.33 - ACUTE ON CHRONIC DIASTOLIC (CONGESTIVE) HEART FAILURE (4) Afib Code(s): I48.91 - UNSPECIFIED ATRIAL FIBRILLATION (5) Anemia Code(s): D64.9 - ANEMIA, UNSPECIFIED (6) CAD (coronary artery disease) Code(s): I25.10 - ATHSCL HEART DISEASE OF [place] CORONARY ARTERY W/O ANG PCTRS Qualifiers: Coronary Disease-Associated Artery/Lesion type: [place] artery [place] vs. transplanted heart: [place] heart Associated angina: without angina Qualified Code(s): I25.10 - Atherosclerotic heart disease of [place] coronary artery without angina pectoris (7) GERD (gastroesophageal reflux disease) Code(s): K21.9 - GASTRO-ESOPHAGEAL REFLUX DISEASE WITHOUT ESOPHAGITIS (8) HLD (hyperlipidemia) Code(s): E78.5 - HYPERLIPIDEMIA, UNSPECIFIED (9) HTN (hypertension) Code(s): I10 - ESSENTIAL (PRIMARY) HYPERTENSION Qualifiers: Hypertension type: essential hypertension Qualified Code(s): I10 - Essential (primary) hypertension (10) Hx of heart artery stent Code(s): Z95.5 - PRESENCE OF CORONARY ANGIOPLASTY IMPLANT AND GRAFT (11) COPD (chronic obstructive pulmonary disease) Code(s): J44.9 - CHRONIC OBSTRUCTIVE PULMONARY DISEASE, UNSPECIFIED
[2019-01-12] MEDS: oxyCODONE HCL 5 MG TABLET PO PRN (04:30)
[2019-01-12] MEDS: GABAPENTIN 300 MG CAPSULE (FP) PO SCH ×3 (05:16→22:04)
[2019-01-12] MEDS: RIFAXIMIN 550 MG TABLET (UD) PO SCH ×3 (05:16→22:04)
[2019-01-12] MEDS: DOCUSATE SODIUM 100 MG CAPSULE (FP) PO SCH ×3 (05:16→22:03)
[2019-01-12] MEDS: METOCLOPRAMIDE HCL INJECTION 10 MG/2 ML VIAL IVPB SCH ×3 (05:16→22:03)
[2019-01-12] MEDS ORDERED: MINERAL OIL ENEMA 133 ML ENEMA PR ONE ×2 (08:09→12:15)
--- NOTE | 2019-01-12 08:16 | PN ---
Progress Note, Physician History of Present Illness: GI FOLLOW UP NOTE Patient examined and case discussed with Dr Zurita Patient examined and complain of lower abdominal tightness and dysphagia. Patient denies having BM yesterday. Denies nausea, vomiting, diarrhea. Abdominal CT scan shows mildly distended stomach with debris posteriorly and with contrast, dilated contrast filled small bowel loops proximally, transition zone in mid abdomen suggest a partial SBP, without free air, rectal impaction with possible stercoral proctitis. - Current Medication List Current Medications: Active Medications Acetaminophen (Tylenol -) 650 mg PO Q6H PRN PRN Reason: PAIN LEVEL 1-3 Last Admin: 01/10/19 22:43 Dose: 650 mg Acetaminophen (Tylenol -) 650 mg PO Q6H PRN PRN Reason: PAIN SCALE 7-10 Albuterol Sulfate (Ventolin 0.083% Nebulizer Soln -) 1 amp NEB Q4H PRN PRN Reason: SHORT OF BREATH/WHEEZING Albuterol/Ipratropium (Duoneb -) 1 amp NEB RQID [facility] Last Admin: 01/11/19 20:50 Dose: 1 amp Apixaban (Eliquis -) 5 mg PO BID [facility] Last Admin: 01/11/19 21:49 Dose: 5 mg Aspirin (Ecotrin -) 81 mg PO DAILY [facility] Last Admin: 01/11/19 10:23 Dose: 81 mg Benzocaine/Menthol (Cepacol Lozenge -) 1 each MM PRN PRN PRN Reason: SORE THROAT Docusate Sodium (Colace -) 100 mg PO TID [facility] Last Admin: 01/12/19 05:16 Dose: 100 mg Furosemide (Lasix -) 40 mg PO DAILY [facility] Last Admin: 01/11/19 10:23 Dose: 40 mg Gabapentin (Neurontin -) 300 mg PO TID [facility] Last Admin: 01/12/19 05:16 Dose: 300 mg Metoclopramide HCl (Reglan Injection -) 10 mg IVPB Q8H [facility] Last Admin: 01/12/19 05:16 Dose: 10 mg Metoprolol Tartrate (Lopressor -) 25 mg NGT BID [facility] Last Admin: 01/11/19 21:49 Dose: 25 mg Mineral Oil (Fleet Mineral Oil Rectal Enema -) 133 ml [place] NOW ONE Stop: 01/12/19 08:10 Ondansetron HCl (Zofran Injection) 4 mg IVPUSH Q6H PRN PRN Reason: NAUSEA Pancrelipase (Creon Dr 36,000 Units Capsule) 1 cap PO TIDCM [facility] Last Admin: 01/11/19 17:18 Dose: 1 cap Pantoprazole Sodium (Protonix -) 40 mg PO DAILY [facility] Last Admin: 01/11/19 10:23 Dose: 40 mg Polyethylene Glycol (Miralax (For Daily Use) -) 17 gm PO BID [facility] Last Admin: 01/11/19 21:48 Dose: 17 grams Rifaximin (Xifaxan -) 550 mg PO TID [facility] Last Admin: 01/12/19 05:16 Dose: 550 mg - Objective Vital Signs: Vital Signs Temperature 98.0 F 01/12/19 06:00 Pulse Rate 76 01/12/19 06:00 Respiratory Rate 22 H 01/12/19 06:00 Blood Pressure 113/58 L 01/12/19 06:00 O2 Sat by Pulse Oximetry (%) 98 01/11/19 21:00 Constitutional: Yes: No Distress, Calm Eyes: Yes: Conjunctiva Clear HENT: Yes: Atraumatic Cardiovascular: Yes: Regular Rate and Rhythm Respiratory: Yes: Regular, Diminished, On Nasal O2 Gastrointestinal: Yes: Normal Bowel Sounds, Soft. No: WNL, Abdomen, Obese, Ascites, Distention, Hematemesis, Hemorrhoids, Hepatomegaly, Hernia, Hyperactive Bowel Sounds, Hypoactive Bowel Sounds, Melena, Palpable Mass, Pulsatile Mass, Rectal Bleeding, Splenomegaly, Tenderness, Tenderness, Epigastrium, Tenderness, Rebound, Vomiting, Other Genitourinary: Yes: Incontinence Neurological: Yes: Alert, Oriented Psychiatric: Yes: Alert, Oriented Labs: CBC, BMP 01/11/19 06:30 01/11/19 06:30 INR, PTT INR 1.55 (0.83-1.09) H 12/29/18 05:30 <Ivy Starks - Last Filed: 01/12/19 08:12> - Current Medication List Current Medications: Active Medications Acetaminophen (Tylenol -) 650 mg PO Q6H PRN PRN Reason: PAIN LEVEL 1-3 Last Admin: 01/10/19 22:43 Dose: 650 mg Acetaminophen (Tylenol -) 650 mg PO Q6H PRN PRN Reason: PAIN SCALE 7-10 Albuterol Sulfate (Ventolin 0.083% Nebulizer Soln -) 1 amp NEB Q4H PRN PRN Reason: SHORT OF BREATH/WHEEZING Albuterol/Ipratropium (Duoneb -) 1 amp NEB RQID [facility] Last Admin: 01/12/19 16:15 Dose: 1 amp Apixaban (Eliquis -) 5 mg PO BID [facility] Last Admin: 01/12/19 10:42 Dose: 5 mg Aspirin (Ecotrin -) 81 mg PO DAILY [facility] Last Admin: 01/12/19 10:42 Dose: 81 mg Benzocaine/Menthol (Cepacol Lozenge -) 1 each MM PRN PRN PRN Reason: SORE THROAT Docusate Sodium (Colace -) 100 mg PO TID [facility] Last Admin: 01/12/19 13:29 Dose: 100 mg Gabapentin (Neurontin -) 300 mg PO TID [facility] Last Admin: 01/12/19 13:29 Dose: 300 mg Metoclopramide HCl (Reglan Injection -) 10 mg IVPB Q8H [facility] Last Admin: 01/12/19 12:46 Dose: 10 mg Metoprolol Tartrate (Lopressor -) 25 mg NGT BID [facility] Last Admin: 01/12/19 10:42 Dose: 25 mg Ondansetron HCl (Zofran Injection) 4 mg IVPUSH Q6H PRN PRN Reason: NAUSEA Pancrelipase (Creon Dr 36,000 Units Capsule) 1 cap PO TIDCM [facility] Last Admin: 01/12/19 18:35 Dose: 1 cap Pantoprazole Sodium (Protonix -) 40 mg PO DAILY [facility] Last Admin: 01/12/19 10:42 Dose: 40 mg Polyethylene Glycol (Miralax (For Daily Use) -) 17 gm PO BID [facility] Last Admin: 01/12/19 10:45 Dose: 17 grams Rifaximin (Xifaxan -) 550 mg PO TID [facility] Last Admin: 01/12/19 13:29 Dose: 550 mg - Objective Vital Signs: Vital Signs Temperature 98.3 F 01/12/19 16:59 Pulse Rate 84 01/12/19 16:59 Respiratory Rate 20 01/12/19 16:59 Blood Pressure 105/65 01/12/19 16:59 O2 Sat by Pulse Oximetry (%) 98 01/12/19 09:00 Labs: CBC, BMP 01/11/19 06:30 01/11/19 06:30 INR, PTT INR 1.55 (0.83-1.09) H 12/29/18 05:30 <Pedro Pablo Zurita - Last Filed: 01/12/19 19:33> Problem List - Problems (1) Pseudo-obstruction of intestine Assessment/Plan: R> Reilstor discontinued >Abdomen and Pelvic CT scan show mildly distended stomach with debris posteriorly and with contrast, dilated contrast filled small bowel loops proximally, transition zone in mid abdomen suggest a partial SBP, without free air, rectal impaction with possible stercoral proctitis >change diet to low fiber, lactose free >start on xifaxin 550mg TID and Creon 36,000 units TID AC >pain medication discontinued >surgical consult placed >fleet enema x 2 given 4 hrs apart Code(s): K59.8 - OTHER SPECIFIED FUNCTIONAL INTESTINAL DISORDERS <Ivy Starks - Last Filed: 01/12/19 08:12> - Problems (1) Pseudo-obstruction of intestine Code(s): K59.8 - OTHER SPECIFIED FUNCTIONAL INTESTINAL DISORDERS <Pedro Pablo Zurita - Last Filed: 01/12/19 19:33>
[2019-01-12] MEDS: ALBUTEROL SO4 2.5/IPRATROPIUM 0.5 INH SOL 3 ML VIAL.NEB. NEB SCH ×4 (08:55→20:23)
--- NOTE | 2019-01-12 08:57 | PN ---
Progress Note (short form) - Note Progress Note: Surgery POD #21 C2-T1 PCDF and L1-S1 PLIF, seen and examined at bedside. Patient feels well and no acute events overnight. He has been OOB with PT and his ambulation continues to improve. He still has pain over the spine but states the radicular symptoms continue to improve. He is tolerating his diet and denies any CP, SOB, N/V/D fever, chills or headaches. Vital Signs Temp 98.7 F 01/11/19 10:00 Pulse 110 H 01/11/19 10:00 Resp 18 01/11/19 10:00 BP 148/94 01/11/19 10:00 Pulse Ox 98 01/10/19 22:00 Intake & Output 01/11/19 01/11/19 01/12/19 11:59 23:59 11:59 Intake Total 300 Output Total 590 Balance -590 300 Weight 185 lb Intake: IV 250 Normal Saline - 1,000 ml 250 @ 75 mls/hr IV ASDIR [facility] Rx#:[id number] IVPB 50 Output: Drainage 40 Posterior 40 Urine 550 Void 550 Other: Voiding Method Urinal # Unmeasured Voids Void 1 Weight Measurement Method Built in [facility] PE A&Ox3, NAD Unlabored resp on 2L NC Neck incision C/D/I with Xochitl in situ, surrounding tissue intact with no erythema, edema or evidence of collection or d/c. Lumbar incision C/D/I with [place] in situ, surrounding tissue intact with no erythema, edema or evidence of collection or d/c. B/L LE compartments soft, supple and non-tender with + PD pulses. Problem List - Problems (1) S/P lumbar fusion Assessment/Plan: POD #21 Pain continues to improve will need aggressive PT. 1) OOB with PT, up to chair for meals. 2) DVT prophylaxis per cardiology 3) Encourage daily IS, pulmonary toilet 4) Pain control per pain mngt 5) C-collar and TLSO brace as ordered 6) Abx per ID 7) D/c planning to rehab Evaluation and plan discussed with Dr Taylor Code(s): Z98.1 - ARTHRODESIS STATUS
--- NOTE | 2019-01-12 09:13 | PN ---
Progress Note (short form) - Note Progress Note: Resting in NAD. Breathing feels better. No SOB or chest pain. No fevers. CT Abdomen: (?) Partial obstruction Intake & Output 01/09/19 01/10/19 01/11/19 01/12/19 23:59 23:59 23:59 23:59 Intake Total 1180 1330 730 Balance 1180 1330 730 Last Vital Signs Temp Pulse Resp BP Pulse Ox 98.0 F 76 22 H 113/58 L 98 01/12/19 06:00 01/12/19 06:00 01/12/19 06:00 01/12/19 06:00 01/11/19 21:00 Active Medications Acetaminophen (Tylenol -) 650 mg PO Q6H PRN PRN Reason: PAIN LEVEL 1-3 Last Admin: 01/10/19 22:43 Dose: 650 mg Acetaminophen (Tylenol -) 650 mg PO Q6H PRN PRN Reason: PAIN SCALE 7-10 Albuterol Sulfate (Ventolin 0.083% Nebulizer Soln -) 1 amp NEB Q4H PRN PRN Reason: SHORT OF BREATH/WHEEZING Albuterol/Ipratropium (Duoneb -) 1 amp NEB RQID [facility] Last Admin: 01/11/19 20:50 Dose: 1 amp Apixaban (Eliquis -) 5 mg PO BID [facility] Last Admin: 01/11/19 21:49 Dose: 5 mg Aspirin (Ecotrin -) 81 mg PO DAILY [facility] Last Admin: 01/11/19 10:23 Dose: 81 mg Benzocaine/Menthol (Cepacol Lozenge -) 1 each MM PRN PRN PRN Reason: SORE THROAT Docusate Sodium (Colace -) 100 mg PO TID [facility] Last Admin: 01/12/19 05:16 Dose: 100 mg Furosemide (Lasix -) 40 mg PO DAILY [facility] Last Admin: 01/11/19 10:23 Dose: 40 mg Gabapentin (Neurontin -) 300 mg PO TID [facility] Last Admin: 01/12/19 05:16 Dose: 300 mg Metoclopramide HCl (Reglan Injection -) 10 mg IVPB Q8H [facility] Last Admin: 01/12/19 05:16 Dose: 10 mg Metoprolol Tartrate (Lopressor -) 25 mg NGT BID [facility] Last Admin: 01/11/19 21:49 Dose: 25 mg Mineral Oil (Fleet Mineral Oil Rectal Enema -) 133 ml [place] NOW ONE Stop: 01/12/19 12:16 Ondansetron HCl (Zofran Injection) 4 mg IVPUSH Q6H PRN PRN Reason: NAUSEA Pancrelipase (Xavi Ken 36,000 Units Capsule) 1 cap PO TIDCM [facility] Last Admin: 01/11/19 17:18 Dose: 1 cap Pantoprazole Sodium (Protonix -) 40 mg PO DAILY [facility] Last Admin: 01/11/19 10:23 Dose: 40 mg Polyethylene Glycol (Miralax (For Daily Use) -) 17 gm PO BID [facility] Last Admin: 01/11/19 21:48 Dose: 17 grams Rifaximin (Xifaxan -) 550 mg PO TID [facility] Last Admin: 01/12/19 05:16 Dose: 550 mg Gen: NAD at rest Heart: RRR Lung: Bilateral coarse rhonchi, decreased breath sounds at the bases Abd: soft, nontender Ext: no edema A/P (?) Partial SB obstruction s/p CHELE C2-T1/L3-S1/Laminectomy/L1-S1 Posterior Fusion/Cage Placement/Durotomy repair S/P Acute Respiratory Failure Acute Blood Loss Anemia CAD Atrial Fibrillation Acute on Chronic Diastolic Heart Failure Volume Overload improving Pneumonia UTI COPD Rheumatoid Arthritis HTN Hyperlipidemia h/o Prostate Ca - GI follow up - BD TX to QID and PRN - Incentive Spirometry - lasix - rate control - rehab/PT - DVT/GI prophylaxis - Enrique Hampton
[2019-01-12] MEDS ORDERED: PT OWN MED DRAWER 7, Y5N ONE ×3 (10:40→18:30)
[2019-01-12] MEDS: PANTOPRAZOLE 40 MG TABLET (FP) PO SCH (10:42)
[2019-01-12] MEDS: FUROSEMIDE 40 MG TABLET (FP) PO SCH (10:42)
[2019-01-12] MEDS: ASPIRIN COATED 81 MG TABLET.EC PO SCH (10:42)
[2019-01-12] MEDS: METOPROLOL TARTRATE 25 MG TABLET (FP) NGT SCH ×2 (10:42→22:03)
[2019-01-12] MEDS: APIXABAN 5 MG TABLET PO SCH ×2 (10:42→22:03)
[2019-01-12] MEDS: LIPASE/PROTEASE/AMYLASE 36,000 UNIT CAPSULE PO SCH ×3 (10:43→18:35)
[2019-01-12] MEDS: POLYETHYLENE GLYCOL 3350 119 GM BTL PO SCH ×2 (10:45→22:03)
[2019-01-12] MEDS ORDERED: ACETAMINOPHEN 1000 MG/100 ML VIAL (NON FORMULARY) IVPB ONE (11:30)
[2019-01-12 16:08] VITALS: BMI 27.8
--- NOTE | 2019-01-12 17:00 | PN ---
Progress Note (short form) - Note Progress Note: s: no chest pain, sob palps dizzy Current Medications Generic Name Dose Route Start Last Admin Trade Name Freq PRN Reason Stop Dose Admin Acetaminophen 650 mg 12/30/18 20:47 01/10/19 22:43 Tylenol - PO 650 mg Q6H PRN Administration PAIN LEVEL 1-3 Acetaminophen 650 mg 01/10/19 20:42 Tylenol - PO Q6H PRN PAIN SCALE 7-10 Albuterol Sulfate 1 amp 01/10/19 11:00 Ventolin 0.083% Nebulizer Soln - NEB Q4H PRN SHORT OF BREATH/WHEEZING Albuterol/Ipratropium 1 amp 01/11/19 12:00 01/12/19 16:15 Duoneb - NEB 1 amp RQID [facility] Administration Apixaban 5 mg 12/30/18 22:00 01/12/19 10:42 Eliquis - PO 5 mg BID [facility] Administration Aspirin 81 mg 12/31/18 10:00 01/12/19 10:42 Ecotrin - PO 81 mg DAILY [facility] Administration Benzocaine/Menthol 1 each 12/30/18 20:47 Cepacol Lozenge - MM PRN PRN SORE THROAT Docusate Sodium 100 mg 01/03/19 22:00 01/12/19 13:29 Colace - PO 100 mg TID [facility] Administration Gabapentin 300 mg 12/30/18 22:00 01/12/19 13:29 Neurontin - PO 300 mg TID [facility] Administration Metoclopramide HCl 10 mg 01/09/19 13:00 01/12/19 12:46 Reglan Injection - IVPB 10 mg Q8H [facility] Administration Metoprolol Tartrate 25 mg 12/30/18 22:00 01/12/19 10:42 Lopressor - NGT 25 mg BID [facility] Administration Ondansetron HCl 4 mg 12/30/18 20:47 Zofran Injection IVPUSH Q6H PRN NAUSEA Pancrelipase 1 cap 01/11/19 12:00 01/12/19 13:[address] 36,000 Units Capsule PO 1 cap TIDCM [facility] Administration Pantoprazole Sodium 40 mg 01/04/19 10:00 01/12/19 10:42 Protonix - PO 40 mg DAILY [facility] Administration Polyethylene Glycol 17 gm 01/05/19 22:00 01/12/19 10:45 Miralax (For Daily Use) - PO 17 grams BID [facility] Administration Rifaximin 550 mg 01/11/19 14:00 01/12/19 13:29 Xifaxan - PO 550 mg TID [facility] Administration - Objective Vital Signs: Vital Signs Period Temp Pulse Resp BP Sys/Dyson Pulse Ox Last 24 Hr 97.9 F-98.7 F 75-88 18-22 105-137/58-84 98-98 Constitutional: Yes: Calm Cardiovascular: Yes: Pulse Irregular Respiratory: Yes: Other (scattered, no rales. No wheezing) Gastrointestinal: Yes: NT Edema: Yes Edema: LLE: 1+ (ankle), RLE: 1+ (ankle) Neurological: Yes: Alert, Oriented ...Motor Strength: WNL Labs: CBC, BMP 01/11/19 06:30 01/11/19 06:30 Problem List - Problems (1) Back pain Code(s): M54.9 - DORSALGIA, UNSPECIFIED (2) Paroxysmal atrial fibrillation Code(s): I48.0 - PAROXYSMAL ATRIAL FIBRILLATION (3) CAD (coronary artery disease) Code(s): I25.10 - ATHSCL HEART DISEASE OF [place] CORONARY ARTERY W/O ANG PCTRS Qualifiers: Coronary Disease-Associated Artery/Lesion type: [place] artery [place] vs. transplanted heart: [place] heart Associated angina: without angina Qualified Code(s): I25.10 - Atherosclerotic heart disease of [place] coronary artery without angina pectoris (4) Hx of heart artery stent Code(s): Z95.5 - PRESENCE OF CORONARY ANGIOPLASTY IMPLANT AND GRAFT (5) HTN (hypertension) Code(s): I10 - ESSENTIAL (PRIMARY) HYPERTENSION Qualifiers: Hypertension type: essential hypertension Qualified Code(s): I10 - Essential (primary) hypertension (6) Pulmonary hypertension Code(s): I27.20 - PULMONARY HYPERTENSION, UNSPECIFIED (7) Anticoagulation management encounter Code(s): Z51.81 - ENCOUNTER FOR THERAPEUTIC DRUG LEVEL MONITORING; Z79.01 - MANAGER INSTRUMENTATION (CURRENT) USE OF ANTICOAGULANTS Assessment/Plan IMP: 1. Intractable neck pain, cervical and lumbar disc disease s/p Removal of hardware from C2-C7, laminectomy C2-T1 with posterior fusion of C2-T1. removal of hardware from L3-S1(retained screw at Right S1) laminectomy of L1/L2 and L2/L3 posterior fusion of L1 thru S1, repair of durotomy and cage placment L2-L3 2. PHTN, chronic 3. CAD s/p PCI 4. Permanent AF 5. Acute on chronic diastolic CHF 6. Moderate MR 7. Post op fever: cultures negative. 8. Anemia 9. Thrombocytosis REC: 1. WALKER: Pt not eating well due to abd pain, partial sbo, will dc lasix (40 po qd ) as cr up today 2. Blood cultures remain negative; ID following. 3. H/H stable. 4. Transitioned back to oral AC. 6. Continue B-[place] for rate control. 8. ASA has been resumed (prior coronary PCI) 9: GI following for abd pain.
--- NOTE | 2019-01-12 17:09 | PATH ---
Surgical Pathology Report Patient Name: RODRIGO TERRAZAS Med. Rec. #: [id number] /Age/Gender: 1945 (Age: 73) / M Account: [id number] Location: [facility] MED/SURG Taken: 01/08/2019 Received: 01/08/2019 Reported: 01/12/2019 Physicians: Hayley Kevin M.D. Specimen(s) Received PERIPHERAL BLOOD Clinical History Patient has abrupt increase in platelet count. Would like to see if patient may be developing myeloproliferative disorder in order to know whether to treat. Final Diagnosis JAK2 (V617F) MUTATION ANALYSIS BY PCR performed [facility] [place] shows the following: RESULTS: JAK2 V617F MUTATION STATUS: NOT DETECTED INTERPRETATION: NEGATIVE FOR JAK2 (V617F) MUTATION. See [facility] report ([id number]) for additional details. Electronically Signed Vivian Chan M.D. Addendum Reported: 01/15/2019 Addendum Diagnosis Calreticulin (CALR) performed and interpreted at [facility] [place] shows the following: RESULTS: No mutation was detected in exon 9 of calreticulin gene (CALR) by PCR fragment analysis. INTERPRETATION: CALR MUTATION (exon 9): Not Detected. See [facility] report ([id number]) for additional details. Vivian Chan M.D. Addendum Reported: 01/19/2019 Addendum Diagnosis JAK2 Exon 12 & 13 Mutation Analysis performed and interpreted at [facility] [place] shows the following: RESULTS: JAK2 Exon 12 Mutation: NOT DETECTED JAK2 Exon 13 Mutation: NOT DETECTED INTERPRETATION: Negative for JAK2 (Exon 12 & 13) Mutations. MPL MUTATION ANALYSIS performed and interpreted at [place], [place] shows the following: RESULTS: MPL Mutation: NOT DETECTED INTERPRETATION: Negative for MPL gene mutations. See [facility] reports ([id number] and [id number]) for additional details. Vivian Chan M.D. Gross Description Received are 2 lavender top tubes of blood which are sent to [facility]. DL/01/08/2019 [place]/01/08/2019
[2019-01-12] MEDS ORDERED: oxyCODONE HCL 5 MG TABLET PO ONE (18:30)
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
--- NOTE | 2019-01-12 19:40 | PN ---
Progress Note (short form) - Note Progress Note: 73 y/o had 2 fleet enemas --moderte stool, no abdominal pain, partial SBO-- surgery on board. Doubt SBO will contiue present management as patient has fecal impaction Problem List - Problems (1) Pseudo-obstruction of intestine Code(s): K59.8 - OTHER SPECIFIED FUNCTIONAL INTESTINAL DISORDERS
--- NOTE | 2019-01-12 21:04 | PN ---
Progress Note (short form) - Note Progress Note: Patient seen and examined Complains of abdominal pains Passing gas CT ? small bowel obstruction Last Vital Signs Temp Pulse Resp BP Pulse Ox 99.6 F 93 H 20 133/74 98 01/12/19 19:59 01/12/19 19:59 01/12/19 19:59 01/12/19 19:59 01/12/19 09:00 HEENT: KILLIAN, EOM Intact Cor: RSR, No murmurs, No gallops Lungs: diminished breath sounds Abd: mild distension Ext:No significant edema Skin: No rashes, Integument intact CBC, BMP 01/11/19 06:30 01/11/19 06:30 Current Medications Generic Name Dose Route Start Last Admin Trade Name Freq PRN Reason Stop Dose Admin Acetaminophen 650 mg 12/30/18 20:47 01/10/19 22:43 Tylenol - PO 650 mg Q6H PRN Administration PAIN LEVEL 1-3 Acetaminophen 650 mg 01/10/19 20:42 Tylenol - PO Q6H PRN PAIN SCALE 7-10 Albuterol Sulfate 1 amp 01/10/19 11:00 Ventolin 0.083% Nebulizer Soln - NEB Q4H PRN SHORT OF BREATH/WHEEZING Albuterol/Ipratropium 1 amp 01/11/19 12:00 01/12/19 20:23 Duoneb - NEB 1 amp RQID BRIDGET Administration Apixaban 5 mg 12/30/18 22:00 01/12/19 10:42 Eliquis - PO 5 mg BID BRIDGET Administration Aspirin 81 mg 12/31/18 10:00 01/12/19 10:42 Ecotrin - PO 81 mg DAILY BRIDGET Administration Benzocaine/Menthol 1 each 12/30/18 20:47 Cepacol Lozenge - MM PRN PRN SORE THROAT Docusate Sodium 100 mg 01/03/19 22:00 01/12/19 13:29 Colace - PO 100 mg TID BRIDGET Administration Gabapentin 300 mg 12/30/18 22:00 01/12/19 13:29 Neurontin - PO 300 mg TID BRIDGET Administration Metoclopramide HCl 10 mg 01/09/19 13:00 01/12/19 12:46 Reglan Injection - IVPB 10 mg Q8H BRIDGET Administration Metoprolol Tartrate 25 mg 12/30/18 22:00 01/12/19 10:42 Lopressor - NGT 25 mg BID BRIDGET Administration Ondansetron HCl 4 mg 12/30/18 20:47 Zofran Injection IVPUSH Q6H PRN NAUSEA Pancrelipase 1 cap 01/11/19 12:00 01/12/19 18:[address] 36,000 Units Capsule PO 1 cap TIDCM BRIDGET Administration Pantoprazole Sodium 40 mg 01/04/19 10:00 01/12/19 10:42 Protonix - PO 40 mg DAILY RBIDGET Administration Polyethylene Glycol 17 gm 01/05/19 22:00 01/12/19 10:45 Miralax (For Daily Use) - PO 17 grams BID BRIDGTE Administration Rifaximin 550 mg 01/11/19 14:00 01/12/19 13:29 Xifaxan - PO 550 mg TID BRIDGET Administration Impression: ? SBO partial vs fecal impaction Reactive thrombocytosi with platelet count improving . Plan: current therapy
--- NOTE | 2019-01-12 23:50 | PN ---
Progress Note, Physician History of Present Illness: No new complaints - Current Medication List Current Medications: Active Medications Acetaminophen (Tylenol -) 650 mg PO Q6H PRN PRN Reason: PAIN LEVEL 1-3 Last Admin: 01/10/19 22:43 Dose: 650 mg Acetaminophen (Tylenol -) 650 mg PO Q6H PRN PRN Reason: PAIN SCALE 7-10 Last Admin: 01/12/19 23:44 Dose: 650 mg Albuterol Sulfate (Ventolin 0.083% Nebulizer Soln -) 1 amp NEB Q4H PRN PRN Reason: SHORT OF BREATH/WHEEZING Albuterol/Ipratropium (Duoneb -) 1 amp NEB RQID [facility] Last Admin: 01/12/19 20:23 Dose: 1 amp Apixaban (Eliquis -) 5 mg PO BID [facility] Last Admin: 01/12/19 22:03 Dose: 5 mg Aspirin (Ecotrin -) 81 mg PO DAILY [facility] Last Admin: 01/12/19 10:42 Dose: 81 mg Benzocaine/Menthol (Cepacol Lozenge -) 1 each MM PRN PRN PRN Reason: SORE THROAT Docusate Sodium (Colace -) 100 mg PO TID [facility] Last Admin: 01/12/19 22:03 Dose: 100 mg Gabapentin (Neurontin -) 300 mg PO TID [facility] Last Admin: 01/12/19 22:04 Dose: 300 mg Metoclopramide HCl (Reglan Injection -) 10 mg IVPB Q8H [facility] Last Admin: 01/12/19 22:03 Dose: 10 mg Metoprolol Tartrate (Lopressor -) 25 mg NGT BID [facility] Last Admin: 01/12/19 22:03 Dose: 25 mg Ondansetron HCl (Zofran Injection) 4 mg IVPUSH Q6H PRN PRN Reason: NAUSEA Pancrelipase (Creon Dr 36,000 Units Capsule) 1 cap PO TIDCM [facility] Last Admin: 01/12/19 18:35 Dose: 1 cap Pantoprazole Sodium (Protonix -) 40 mg PO DAILY [facility] Last Admin: 01/12/19 10:42 Dose: 40 mg Polyethylene Glycol (Miralax (For Daily Use) -) 17 gm PO BID [facility] Last Admin: 01/12/19 22:03 Dose: 17 grams Rifaximin (Xifaxan -) 550 mg PO TID [facility] Last Admin: 01/12/19 22:04 Dose: 550 mg - Objective Vital Signs: Vital Signs Temperature 99.6 F 01/12/19 19:59 Pulse Rate 93 H 01/12/19 19:59 Respiratory Rate 20 01/12/19 19:59 Blood Pressure 133/74 01/12/19 19:59 O2 Sat by Pulse Oximetry (%) 98 01/12/19 09:00 Labs: CBC, BMP 01/11/19 06:30 01/11/19 06:30 INR, PTT INR 1.55 (0.83-1.09) H 12/29/18 05:30 Problem List - Problems (1) Pneumonia Code(s): J18.9 - PNEUMONIA, UNSPECIFIED ORGANISM (2) Back pain Code(s): M54.9 - DORSALGIA, UNSPECIFIED (3) Acute on chronic diastolic (congestive) heart failure Code(s): I50.33 - ACUTE ON CHRONIC DIASTOLIC (CONGESTIVE) HEART FAILURE (4) Afib Code(s): I48.91 - UNSPECIFIED ATRIAL FIBRILLATION (5) Anemia Code(s): D64.9 - ANEMIA, UNSPECIFIED (6) CAD (coronary artery disease) Code(s): I25.10 - ATHSCL HEART DISEASE OF [place] CORONARY ARTERY W/O ANG PCTRS Qualifiers: Coronary Disease-Associated Artery/Lesion type: [place] artery [place] vs. transplanted heart: [place] heart Associated angina: without angina Qualified Code(s): I25.10 - Atherosclerotic heart disease of [place] coronary artery without angina pectoris (7) GERD (gastroesophageal reflux disease) Code(s): K21.9 - GASTRO-ESOPHAGEAL REFLUX DISEASE WITHOUT ESOPHAGITIS (8) HLD (hyperlipidemia) Code(s): E78.5 - HYPERLIPIDEMIA, UNSPECIFIED (9) HTN (hypertension) Code(s): I10 - ESSENTIAL (PRIMARY) HYPERTENSION Qualifiers: Hypertension type: essential hypertension Qualified Code(s): I10 - Essential (primary) hypertension (10) Hx of heart artery stent Code(s): Z95.5 - PRESENCE OF CORONARY ANGIOPLASTY IMPLANT AND GRAFT (11) COPD (chronic obstructive pulmonary disease) Code(s): J44.9 - CHRONIC OBSTRUCTIVE PULMONARY DISEASE, UNSPECIFIED
[2019-01-13] MEDS: GABAPENTIN 300 MG CAPSULE (FP) PO SCH ×3 (07:00→21:36)
[2019-01-13] MEDS: RIFAXIMIN 550 MG TABLET (UD) PO SCH (07:00)
[2019-01-13] MEDS: METOCLOPRAMIDE HCL INJECTION 10 MG/2 ML VIAL IVPB SCH ×3 (07:00→21:35)
[2019-01-13] MEDS: DOCUSATE SODIUM 100 MG CAPSULE (FP) PO SCH ×3 (07:00→21:36)
[2019-01-13] MEDS: ALBUTEROL SO4 2.5/IPRATROPIUM 0.5 INH SOL 3 ML VIAL.NEB. NEB SCH ×4 (07:30→20:17)
[2019-01-13] MEDS ORDERED: PT OWN MED DRAWER 7, Y5N ONE (07:59)
--- NOTE | 2019-01-13 08:36 | PN ---
Progress Note, Physician History of Present Illness: GI FOLLOW UP NOTE Patient examined and case discussed with Dr Zurita Patient examined and complain of lower abdominal dull pain. Patient had fleet enema x 2 yesterday with good effect and admits to passing flatus. Denies nausea, vomiting, diarrhea. Abdominal CT scan shows mildly distended stomach with debris posteriorly and with contrast, dilated contrast filled small bowel loops proximally, transition zone in mid abdomen suggest a partial SBP, without free air, rectal impaction with possible stercoral proctitis. - Current Medication List Current Medications: Active Medications Acetaminophen (Tylenol -) 650 mg PO Q6H PRN PRN Reason: PAIN LEVEL 1-3 Last Admin: 01/10/19 22:43 Dose: 650 mg Acetaminophen (Tylenol -) 650 mg PO Q6H PRN PRN Reason: PAIN SCALE 7-10 Last Admin: 01/12/19 23:44 Dose: 650 mg Albuterol Sulfate (Ventolin 0.083% Nebulizer Soln -) 1 amp NEB Q4H PRN PRN Reason: SHORT OF BREATH/WHEEZING Albuterol/Ipratropium (Duoneb -) 1 amp NEB RQID [facility] Last Admin: 01/12/19 20:23 Dose: 1 amp Apixaban (Eliquis -) 5 mg PO BID [facility] Last Admin: 01/12/19 22:03 Dose: 5 mg Aspirin (Ecotrin -) 81 mg PO DAILY [facility] Last Admin: 01/12/19 10:42 Dose: 81 mg Benzocaine/Menthol (Cepacol Lozenge -) 1 each MM PRN PRN PRN Reason: SORE THROAT Docusate Sodium (Colace -) 100 mg PO TID [facility] Last Admin: 01/13/19 07:00 Dose: 100 mg Gabapentin (Neurontin -) 300 mg PO TID [facility] Last Admin: 01/13/19 07:00 Dose: 300 mg Metoclopramide HCl (Reglan Injection -) 10 mg IVPB Q8H [facility] Last Admin: 01/13/19 07:00 Dose: 10 mg Metoprolol Tartrate (Lopressor -) 25 mg NGT BID [facility] Last Admin: 01/12/19 22:03 Dose: 25 mg Ondansetron HCl (Zofran Injection) 4 mg IVPUSH Q6H PRN PRN Reason: NAUSEA Pancrelipase (Xavi Ken 36,000 Units Capsule) 1 cap PO TIDCM [facility] Last Admin: 01/12/19 18:35 Dose: 1 cap Pantoprazole Sodium (Protonix -) 40 mg PO DAILY [facility] Last Admin: 01/12/19 10:42 Dose: 40 mg Polyethylene Glycol (Miralax (For Daily Use) -) 17 gm PO BID [facility] Last Admin: 01/12/19 22:03 Dose: 17 grams Rifaximin (Xifaxan -) 550 mg PO TID [facility] Last Admin: 01/13/19 07:00 Dose: 550 mg - Objective Vital Signs: Vital Signs Temperature 99 F 01/13/19 06:00 Pulse Rate 75 01/13/19 06:00 Respiratory Rate 20 01/13/19 06:00 Blood Pressure 107/59 L 01/13/19 06:00 O2 Sat by Pulse Oximetry (%) 98 01/12/19 21:00 Constitutional: Yes: No Distress, Calm Eyes: Yes: Conjunctiva Clear HENT: Yes: Atraumatic Cardiovascular: Yes: Regular Rate and Rhythm Respiratory: Yes: Diminished, On Nasal O2 Gastrointestinal: Yes: Normal Bowel Sounds, Soft, Tenderness (generalized) Genitourinary: Yes: Incontinence Neurological: Yes: Alert, Oriented Psychiatric: Yes: Alert, Oriented Labs: CBC, BMP 01/11/19 06:30 01/11/19 06:30 INR, PTT INR 1.55 (0.83-1.09) H 12/29/18 05:30 Problem List - Problems (1) Pseudo-obstruction of intestine Assessment/Plan: R> Reilstor discontinued >Abdomen and Pelvic CT scan show mildly distended stomach with debris posteriorly and with contrast, dilated contrast filled small bowel loops proximally, transition zone in mid abdomen suggest a partial SBP, without free air, rectal impaction with possible stercoral proctitis >full liquid diet >will discontinue xifaxin and start flagyl 250mg TID >pain medication discontinued >surgical on board Code(s): K59.8 - OTHER SPECIFIED FUNCTIONAL INTESTINAL DISORDERS
[2019-01-13] MEDS: PANTOPRAZOLE 40 MG TABLET (FP) PO SCH (09:15)
[2019-01-13] MEDS: ASPIRIN COATED 81 MG TABLET.EC PO SCH (09:15)
[2019-01-13] MEDS: APIXABAN 5 MG TABLET PO SCH ×2 (09:15→21:36)
[2019-01-13] MEDS: METOPROLOL TARTRATE 25 MG TABLET (FP) NGT SCH ×2 (09:15→21:36)
[2019-01-13] MEDS: POLYETHYLENE GLYCOL 3350 119 GM BTL PO SCH ×2 (09:16→21:37)
[2019-01-13] MEDS: LIPASE/PROTEASE/AMYLASE 36,000 UNIT CAPSULE PO SCH ×3 (09:18→18:09)
[2019-01-13] MEDS: ACETAMINOPHEN 325 MG TABLET (FP) PO PRN ×2 (10:57→18:08)
--- NOTE | 2019-01-13 12:07 | PN ---
Progress Note (short form) - Note Progress Note: s: no chest pain, sob palps dizzy Current Medications Acetaminophen (Tylenol -) 650 mg PO Q6H PRN PRN Reason: PAIN LEVEL 1-3 Last Admin: 01/13/19 10:57 Dose: 650 mg Acetaminophen (Tylenol -) 650 mg PO Q6H PRN PRN Reason: PAIN SCALE 7-10 Last Admin: 01/12/19 23:44 Dose: 650 mg Albuterol Sulfate (Ventolin 0.083% Nebulizer Soln -) 1 amp NEB Q4H PRN PRN Reason: SHORT OF BREATH/WHEEZING Albuterol/Ipratropium (Duoneb -) 1 amp NEB RQID [facility] Last Admin: 01/13/19 11:44 Dose: 1 amp Apixaban (Eliquis -) 5 mg PO BID [facility] Last Admin: 01/13/19 09:15 Dose: 5 mg Aspirin (Ecotrin -) 81 mg PO DAILY [facility] Last Admin: 01/13/19 09:15 Dose: 81 mg Benzocaine/Menthol (Cepacol Lozenge -) 1 each MM PRN PRN PRN Reason: SORE THROAT Docusate Sodium (Colace -) 100 mg PO TID [facility] Last Admin: 01/13/19 07:00 Dose: 100 mg Gabapentin (Neurontin -) 300 mg PO TID [facility] Last Admin: 01/13/19 07:00 Dose: 300 mg Metoclopramide HCl (Reglan Injection -) 10 mg IVPB Q8H [facility] Last Admin: 01/13/19 07:00 Dose: 10 mg Metoprolol Tartrate (Lopressor -) 25 mg NGT BID [facility] Last Admin: 01/13/19 09:15 Dose: 25 mg Metronidazole (Flagyl -) 250 mg PO TID [facility] Ondansetron HCl (Zofran Injection) 4 mg IVPUSH Q6H PRN PRN Reason: NAUSEA Pancrelipase (Creon Dr 36,000 Units Capsule) 1 cap PO TIDCM [facility] Last Admin: 01/13/19 09:18 Dose: 1 cap Pantoprazole Sodium (Protonix -) 40 mg PO DAILY [facility] Last Admin: 01/13/19 09:15 Dose: 40 mg Polyethylene Glycol (Miralax (For Daily Use) -) 17 gm PO BID [facility] Last Admin: 01/13/19 09:16 Dose: 17 grams - Objective Vital Signs: Vital Signs Period Temp Pulse Resp BP Sys/Dyson Pulse Ox Last 24 Hr 97.9 F-99.6 F 75-93 20-22 96-133/51-74 98 Constitutional: Yes: Calm Cardiovascular: Yes: Pulse Irregular Respiratory: Yes: Other (scattered, no rales. No wheezing) Gastrointestinal: Yes: NT Edema: Yes Edema: LLE: 1+ (ankle), RLE: 1+ (ankle) Neurological: Yes: Alert, Oriented ...Motor Strength: WNL Problem List - Problems (1) Back pain Code(s): M54.9 - DORSALGIA, UNSPECIFIED (2) Paroxysmal atrial fibrillation Code(s): I48.0 - PAROXYSMAL ATRIAL FIBRILLATION (3) CAD (coronary artery disease) Code(s): I25.10 - ATHSCL HEART DISEASE OF [place] CORONARY ARTERY W/O ANG PCTRS Qualifiers: Coronary Disease-Associated Artery/Lesion type: [place] artery [place] vs. transplanted heart: [place] heart Associated angina: without angina Qualified Code(s): I25.10 - Atherosclerotic heart disease of [place] coronary artery without angina pectoris (4) Hx of heart artery stent Code(s): Z95.5 - PRESENCE OF CORONARY ANGIOPLASTY IMPLANT AND GRAFT (5) HTN (hypertension) Code(s): I10 - ESSENTIAL (PRIMARY) HYPERTENSION Qualifiers: Hypertension type: essential hypertension Qualified Code(s): I10 - Essential (primary) hypertension (6) Pulmonary hypertension Code(s): I27.20 - PULMONARY HYPERTENSION, UNSPECIFIED (7) Anticoagulation management encounter Code(s): Z51.81 - ENCOUNTER FOR THERAPEUTIC DRUG LEVEL MONITORING; 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 Intractable neck pain, cervical and lumbar disc disease s/p Removal of hardware from C2-C7, laminectomy C2-T1 with posterior fusion of C2-T1. removal of hardware from L3-S1(retained screw at Right S1) laminectomy of L1/L2 and L2/L3 posterior fusion of L1 thru S1, repair of durotomy and cage placment L2-L3 2. PHTN, chronic 3. CAD s/p PCI 4. Permanent AF 5. Acute on chronic diastolic CHF 6. Moderate MR 7. Post op fever: cultures negative. 8. Anemia 9. Thrombocytosis REC: 1. WALKER: Pt not eating well due to abd pain, partial sbo, holding lasix for WALKER 2. Blood cultures remain negative; ID following. 3. H/H stable. 4. Transitioned back to oral AC. 6. Continue B-[place] for rate control. 8. ASA has been resumed (prior coronary PCI) 9: GI following for abd pain.
[2019-01-13] MEDS: metroNIDAZOLE 250 MG TABLET PO SCH ×2 (13:10→21:36)
--- NOTE | 2019-01-13 14:29 | PN ---
Progress Note (short form) - Note Progress Note: PULMONARY Denies shortness of breath or chest pain but more congested per nursing. Vital Signs Period Temp Pulse Resp BP Sys/Dyson Pulse Ox Last 24 Hr 98.2 F-99.6 F 75-93 20-20 96-133/51-74 98 Gen: NAD at rest Heart: RRR Lung: scattered rhonchi Abd: soft, nontender Ext: no edema CBC, BMP 01/11/19 06:30 01/11/19 06:30 Active Medications Acetaminophen (Tylenol -) 650 mg PO Q6H PRN PRN Reason: PAIN LEVEL 1-3 Last Admin: 01/13/19 10:57 Dose: 650 mg Acetaminophen (Tylenol -) 650 mg PO Q6H PRN PRN Reason: PAIN SCALE 7-10 Last Admin: 01/12/19 23:44 Dose: 650 mg Albuterol Sulfate (Ventolin 0.083% Nebulizer Soln -) 1 amp NEB Q4H PRN PRN Reason: SHORT OF BREATH/WHEEZING Albuterol/Ipratropium (Duoneb -) 1 amp NEB RQID [facility] Last Admin: 01/13/19 11:44 Dose: 1 amp Apixaban (Eliquis -) 5 mg PO BID [facility] Last Admin: 01/13/19 09:15 Dose: 5 mg Aspirin (Ecotrin -) 81 mg PO DAILY [facility] Last Admin: 01/13/19 09:15 Dose: 81 mg Benzocaine/Menthol (Cepacol Lozenge -) 1 each MM PRN PRN PRN Reason: SORE THROAT Docusate Sodium (Colace -) 100 mg PO TID [facility] Last Admin: 01/13/19 13:10 Dose: 100 mg Gabapentin (Neurontin -) 300 mg PO TID [facility] Last Admin: 01/13/19 13:13 Dose: 300 mg Metoclopramide HCl (Reglan Injection -) 10 mg IVPB Q8H [facility] Last Admin: 01/13/19 13:14 Dose: Not Given Metoprolol Tartrate (Lopressor -) 25 mg NGT BID [facility] Last Admin: 01/13/19 09:15 Dose: 25 mg Metronidazole (Flagyl -) 250 mg PO TID [facility] Last Admin: 01/13/19 13:10 Dose: 250 mg Ondansetron HCl (Zofran Injection) 4 mg IVPUSH Q6H PRN PRN Reason: NAUSEA Pancrelipase (Xavi Ken 36,000 Units Capsule) 1 cap PO TIDCM [facility] Last Admin: 01/13/19 12:27 Dose: 1 cap Pantoprazole Sodium (Protonix -) 40 mg PO DAILY [facility] Last Admin: 01/13/19 09:15 Dose: 40 mg Polyethylene Glycol (Miralax (For Daily Use) -) 17 gm PO BID [facility] Last Admin: 01/13/19 09:16 Dose: 17 grams A/P s/p CHELE C2-T1/L3-S1/Laminectomy/L1-S1 Posterior Fusion/Cage Placement/Durotomy repair S/P Acute Respiratory Failure Acute Blood Loss Anemia CAD Atrial Fibrillation Acute on Chronic Diastolic Heart Failure Volume Overload improving Pneumonia UTI COPD Rheumatoid Arthritis HTN Hyperlipidemia h/o Prostate Ca - lasix as needed - monitor urine output, creatinine - monitor lytes - antibiotics per ID - rate control - continue anticoagulation - rehab/PT - DVT/GI prophylaxis
--- NOTE | 2019-01-13 19:37 | PN ---
Progress Note (short form) - Note Progress Note: Tolerating full liquid diet Passing flatus and stool Has less abdominal discomfort AF. VSS Abd: no longer distended and soft, with no tenderness A/P: resolving low grade partial SBO vs. ileus -likely more of the latter May advance SANJAY Continue laxatives and enemas prn Problem List - Problems (1) Partial small bowel obstruction Code(s): K56.600 - PARTIAL INTESTINAL OBSTRUCTION, UNSPECIFIED TO CAUSE
[2019-01-13] MEDS: oxyCODONE HCL 5 MG TABLET PO PRN (22:01)
--- NOTE | 2019-01-13 23:14 | PN ---
Progress Note, Physician - Current Medication List Current Medications: Active Medications Acetaminophen (Tylenol -) 650 mg PO Q6H PRN PRN Reason: PAIN LEVEL 1-3 Last Admin: 01/13/19 18:08 Dose: 650 mg Acetaminophen (Tylenol -) 650 mg PO Q6H PRN PRN Reason: PAIN SCALE 7-10 Last Admin: 01/12/19 23:44 Dose: 650 mg Albuterol Sulfate (Ventolin 0.083% Nebulizer Soln -) 1 amp NEB Q4H PRN PRN Reason: SHORT OF BREATH/WHEEZING Albuterol/Ipratropium (Duoneb -) 1 amp NEB RQID [facility] Last Admin: 01/13/19 20:17 Dose: 1 amp Apixaban (Eliquis -) 5 mg PO BID [facility] Last Admin: 01/13/19 21:36 Dose: 5 mg Aspirin (Ecotrin -) 81 mg PO DAILY [facility] Last Admin: 01/13/19 09:15 Dose: 81 mg Benzocaine/Menthol (Cepacol Lozenge -) 1 each MM PRN PRN PRN Reason: SORE THROAT Docusate Sodium (Colace -) 100 mg PO TID [facility] Last Admin: 01/13/19 21:36 Dose: 100 mg Gabapentin (Neurontin -) 300 mg PO TID [facility] Last Admin: 01/13/19 21:36 Dose: 300 mg Metoclopramide HCl (Reglan Injection -) 10 mg IVPB Q8H [facility] Last Admin: 01/13/19 21:35 Dose: 10 mg Metoprolol Tartrate (Lopressor -) 25 mg NGT BID [facility] Last Admin: 01/13/19 21:36 Dose: 25 mg Metronidazole (Flagyl -) 250 mg PO TID [facility] Last Admin: 01/13/19 21:36 Dose: 250 mg Ondansetron HCl (Zofran Injection) 4 mg IVPUSH Q6H PRN PRN Reason: NAUSEA Oxycodone HCl (Roxicodone -) 10 mg PO Q6H PRN PRN Reason: PAIN SCALE 7-10 Last Admin: 01/13/19 22:01 Dose: 10 mg Pancrelipase (Creon Dr 36,000 Units Capsule) 1 cap PO TIDCM [facility] Last Admin: 01/13/19 18:09 Dose: 1 cap Pantoprazole Sodium (Protonix -) 40 mg PO DAILY [facility] Last Admin: 01/13/19 09:15 Dose: 40 mg Polyethylene Glycol (Miralax (For Daily Use) -) 17 gm PO BID [facility] Last Admin: 01/13/19 21:37 Dose: Not Given - Objective Vital Signs: Vital Signs Temperature 97.9 F 01/13/19 19:00 Pulse Rate 90 01/13/19 19:00 Respiratory Rate 20 01/13/19 19:00 Blood Pressure 116/74 01/13/19 19:00 O2 Sat by Pulse Oximetry (%) 100 01/13/19 19:14 Labs: CBC, BMP 01/11/19 06:30 01/11/19 06:30 INR, PTT INR 1.55 (0.83-1.09) H 12/29/18 05:30 Problem List - Problems (1) Pneumonia Code(s): J18.9 - PNEUMONIA, UNSPECIFIED ORGANISM (2) Back pain Code(s): M54.9 - DORSALGIA, UNSPECIFIED (3) Acute on chronic diastolic (congestive) heart failure Code(s): I50.33 - ACUTE ON CHRONIC DIASTOLIC (CONGESTIVE) HEART FAILURE (4) Afib Code(s): I48.91 - UNSPECIFIED ATRIAL FIBRILLATION (5) Anemia Code(s): D64.9 - ANEMIA, UNSPECIFIED (6) CAD (coronary artery disease) Code(s): I25.10 - ATHSCL HEART DISEASE OF [place] CORONARY ARTERY W/O ANG PCTRS Qualifiers: Coronary Disease-Associated Artery/Lesion type: [place] artery [place] vs. transplanted heart: [place] heart Associated angina: without angina Qualified Code(s): I25.10 - Atherosclerotic heart disease of [place] coronary artery without angina pectoris (7) GERD (gastroesophageal reflux disease) Code(s): K21.9 - GASTRO-ESOPHAGEAL REFLUX DISEASE WITHOUT ESOPHAGITIS (8) HLD (hyperlipidemia) Code(s): E78.5 - HYPERLIPIDEMIA, UNSPECIFIED (9) HTN (hypertension) Code(s): I10 - ESSENTIAL (PRIMARY) HYPERTENSION Qualifiers: Hypertension type: essential hypertension Qualified Code(s): I10 - Essential (primary) hypertension (10) Hx of heart artery stent Code(s): Z95.5 - PRESENCE OF CORONARY ANGIOPLASTY IMPLANT AND GRAFT (11) COPD (chronic obstructive pulmonary disease) Code(s): J44.9 - CHRONIC OBSTRUCTIVE PULMONARY DISEASE, UNSPECIFIED
[2019-01-14] MEDS: DOCUSATE SODIUM 100 MG CAPSULE (FP) PO SCH ×3 (05:39→21:13)
[2019-01-14] MEDS: metroNIDAZOLE 250 MG TABLET PO SCH (05:43)
[2019-01-14] MEDS: GABAPENTIN 300 MG CAPSULE (FP) PO SCH ×3 (05:44→21:17)
[2019-01-14] MEDS: METOCLOPRAMIDE HCL INJECTION 10 MG/2 ML VIAL IVPB SCH ×3 (05:44→21:13)
[2019-01-14] MEDS: ALBUTEROL SO4 2.5/IPRATROPIUM 0.5 INH SOL 3 ML VIAL.NEB. NEB SCH ×4 (07:42→20:35)
--- NOTE | 2019-01-14 08:02 | PN ---
Progress Note, Physician History of Present Illness: GI FOLLOW UP NOTE Patient examined and case discussed with Dr Zurita Patient examined and complain of diarrhea x 3 episodes accompanied with lower abdominal pain. Denies nausea, vomiting. - Current Medication List Current Medications: Active Medications Acetaminophen (Tylenol -) 650 mg PO Q6H PRN PRN Reason: PAIN LEVEL 1-3 Last Admin: 01/13/19 18:08 Dose: 650 mg Acetaminophen (Tylenol -) 650 mg PO Q6H PRN PRN Reason: PAIN SCALE 7-10 Last Admin: 01/12/19 23:44 Dose: 650 mg Albuterol Sulfate (Ventolin 0.083% Nebulizer Soln -) 1 amp NEB Q4H PRN PRN Reason: SHORT OF BREATH/WHEEZING Albuterol/Ipratropium (Duoneb -) 1 amp NEB RQID [facility] Last Admin: 01/14/19 07:42 Dose: 1 amp Apixaban (Eliquis -) 5 mg PO BID [facility] Last Admin: 01/13/19 21:36 Dose: 5 mg Aspirin (Ecotrin -) 81 mg PO DAILY [facility] Last Admin: 01/13/19 09:15 Dose: 81 mg Benzocaine/Menthol (Cepacol Lozenge -) 1 each MM PRN PRN PRN Reason: SORE THROAT Docusate Sodium (Colace -) 100 mg PO TID [facility] Last Admin: 01/14/19 05:39 Dose: Not Given Gabapentin (Neurontin -) 300 mg PO TID [facility] Last Admin: 01/14/19 05:44 Dose: 300 mg Metoclopramide HCl (Reglan Injection -) 10 mg IVPB Q8H [facility] Last Admin: 01/14/19 05:44 Dose: 10 mg Metoprolol Tartrate (Lopressor -) 25 mg NGT BID [facility] Last Admin: 01/13/19 21:36 Dose: 25 mg Metronidazole (Flagyl -) 250 mg PO TID [facility] Last Admin: 01/14/19 05:43 Dose: 250 mg Ondansetron HCl (Zofran Injection) 4 mg IVPUSH Q6H PRN PRN Reason: NAUSEA Oxycodone HCl (Roxicodone -) 10 mg PO Q6H PRN PRN Reason: PAIN SCALE 7-10 Last Admin: 01/13/19 22:01 Dose: 10 mg Pancrelipase (Creon Dr 36,000 Units Capsule) 1 cap PO TIDCM [facility] Last Admin: 01/13/19 18:09 Dose: 1 cap Pantoprazole Sodium (Protonix -) 40 mg PO DAILY [facility] Last Admin: 01/13/19 09:15 Dose: 40 mg Polyethylene Glycol (Miralax (For Daily Use) -) 17 gm PO BID [facility] Last Admin: 01/13/19 21:37 Dose: Not Given - Objective Vital Signs: Vital Signs Temperature 98.1 F 01/14/19 06:00 Pulse Rate 81 01/14/19 06:00 Respiratory Rate 20 01/14/19 06:00 Blood Pressure 125/59 L 01/14/19 06:00 O2 Sat by Pulse Oximetry (%) 100 01/13/19 21:00 Constitutional: Yes: No Distress, Calm Eyes: Yes: Conjunctiva Clear HENT: Yes: Atraumatic Cardiovascular: Yes: Regular Rate and Rhythm Respiratory: Yes: Diminished, On Nasal O2 Gastrointestinal: Yes: Normal Bowel Sounds, Soft, Tenderness (lower abdomen) Genitourinary: Yes: Incontinence Musculoskeletal: Yes: Muscle Weakness Neurological: Yes: Alert, Oriented Psychiatric: Yes: Alert, Oriented Labs: CBC, BMP 01/11/19 06:30 01/11/19 06:30 INR, PTT INR 1.55 (0.83-1.09) H 12/29/18 05:30 <Ivy Starks - Last Filed: 01/14/19 07:59> - Current Medication List Current Medications: Active Medications Acetaminophen (Tylenol -) 650 mg PO Q6H PRN PRN Reason: PAIN LEVEL 1-3 Last Admin: 01/13/19 18:08 Dose: 650 mg Acetaminophen (Tylenol -) 650 mg PO Q6H PRN PRN Reason: PAIN SCALE 7-10 Last Admin: 01/12/19 23:44 Dose: 650 mg Albuterol Sulfate (Ventolin 0.083% Nebulizer Soln -) 1 amp NEB Q4H PRN PRN Reason: SHORT OF BREATH/WHEEZING Albuterol/Ipratropium (Duoneb -) 1 amp NEB RQID [facility] Last Admin: 01/14/19 15:15 Dose: 1 amp Apixaban (Eliquis -) 5 mg PO BID [facility] Last Admin: 01/14/19 09:21 Dose: 5 mg Aspirin (Ecotrin -) 81 mg PO DAILY [facility] Last Admin: 01/14/19 09:20 Dose: 81 mg Docusate Sodium (Colace -) 100 mg PO TID [facility] Last Admin: 01/14/19 13:42 Dose: Not Given Gabapentin (Neurontin -) 300 mg PO TID [facility] Last Admin: 01/14/19 13:41 Dose: 300 mg Metoclopramide HCl (Reglan Injection -) 10 mg IVPB Q8H [facility] Last Admin: 01/14/19 13:41 Dose: Not Given Metoprolol Tartrate (Lopressor -) 25 mg NGT BID [facility] Last Admin: 01/14/19 09:21 Dose: 25 mg Ondansetron HCl (Zofran Injection) 4 mg IVPUSH Q6H PRN PRN Reason: NAUSEA Oxycodone HCl (Roxicodone -) 10 mg PO Q6H PRN PRN Reason: PAIN SCALE 7-10 Last Admin: 01/14/19 16:32 Dose: 10 mg Pancrelipase (Creon Dr 36,000 Units Capsule) 1 cap PO TIDCM [facility] Last Admin: 01/14/19 16:34 Dose: 1 cap Pantoprazole Sodium (Protonix -) 40 mg PO DAILY [facility] Last Admin: 01/14/19 09:21 Dose: 40 mg - Objective Vital Signs: Vital Signs Temperature 98.9 F 01/14/19 16:59 Pulse Rate 86 01/14/19 16:59 Respiratory Rate 20 01/14/19 16:59 Blood Pressure 111/70 01/14/19 16:59 O2 Sat by Pulse Oximetry (%) 100 01/14/19 09:00 Labs: CBC, BMP 01/11/19 06:30 01/11/19 06:30 INR, PTT INR 1.55 (0.83-1.09) H 12/29/18 05:30 <Pedro Pablo Zurita - Last Filed: 01/14/19 17:27> Problem List - Problems (1) Pseudo-obstruction of intestine Assessment/Plan: R> Reilstor discontinued >Abdomen and Pelvic CT scan show mildly distended stomach with debris posteriorly and with contrast, dilated contrast filled small bowel loops proximally, transition zone in mid abdomen suggest a partial SBP, without free air, rectal impaction with possible stercoral proctitis >full liquid diet >will discontinue xifaxin, flagyl, and creon >pain medication discontinued >surgery on board Code(s): K59.8 - OTHER SPECIFIED FUNCTIONAL INTESTINAL DISORDERS <Ivy Starks - Last Filed: 01/14/19 07:59> - Problems (1) Pseudo-obstruction of intestine Code(s): K59.8 - OTHER SPECIFIED FUNCTIONAL INTESTINAL DISORDERS <Pedro Pablo Zurita - Last Filed: 01/14/19 17:27>
[2019-01-14] MEDS ORDERED: PT OWN MED DRAWER 7, Y5N ONE ×2 (08:38→22:37)
[2019-01-14] MEDS: LIPASE/PROTEASE/AMYLASE 36,000 UNIT CAPSULE PO SCH ×3 (08:43→16:34)
--- NOTE | 2019-01-14 08:55 | PN ---
Progress Note (short form) - Note Progress Note: Resting in NAD. Diarrhea. Breathing feels overall better. No SOB or chest pain. No fevers. Intake & Output 01/11/19 01/12/19 01/13/19 01/14/19 23:59 23:59 23:59 23:59 Intake Total 730 1160 460 Balance 730 1160 460 Last Vital Signs Temp Pulse Resp BP Pulse Ox 98.1 F 81 20 125/59 L 100 01/14/19 06:00 01/14/19 06:00 01/14/19 06:00 01/14/19 06:00 01/13/19 21:00 Active Medications Acetaminophen (Tylenol -) 650 mg PO Q6H PRN PRN Reason: PAIN LEVEL 1-3 Last Admin: 01/13/19 18:08 Dose: 650 mg Acetaminophen (Tylenol -) 650 mg PO Q6H PRN PRN Reason: PAIN SCALE 7-10 Last Admin: 01/12/19 23:44 Dose: 650 mg Albuterol Sulfate (Ventolin 0.083% Nebulizer Soln -) 1 amp NEB Q4H PRN PRN Reason: SHORT OF BREATH/WHEEZING Albuterol/Ipratropium (Duoneb -) 1 amp NEB RQID [facility] Last Admin: 01/14/19 07:42 Dose: 1 amp Apixaban (Eliquis -) 5 mg PO BID [facility] Last Admin: 01/13/19 21:36 Dose: 5 mg Aspirin (Ecotrin -) 81 mg PO DAILY [facility] Last Admin: 01/13/19 09:15 Dose: 81 mg Docusate Sodium (Colace -) 100 mg PO TID [facility] Last Admin: 01/14/19 05:39 Dose: Not Given Gabapentin (Neurontin -) 300 mg PO TID [facility] Last Admin: 01/14/19 05:44 Dose: 300 mg Metoclopramide HCl (Reglan Injection -) 10 mg IVPB Q8H [facility] Last Admin: 01/14/19 05:44 Dose: 10 mg Metoprolol Tartrate (Lopressor -) 25 mg NGT BID [facility] Last Admin: 01/13/19 21:36 Dose: 25 mg Ondansetron HCl (Zofran Injection) 4 mg IVPUSH Q6H PRN PRN Reason: NAUSEA Oxycodone HCl (Roxicodone -) 10 mg PO Q6H PRN PRN Reason: PAIN SCALE 7-10 Last Admin: 01/13/19 22:01 Dose: 10 mg Pancrelipase (Xavi Ken 36,000 Units Capsule) 1 cap PO TIDCM [facility] Last Admin: 01/14/19 08:43 Dose: 1 cap Pantoprazole Sodium (Protonix -) 40 mg PO DAILY [facility] Last Admin: 01/13/19 09:15 Dose: 40 mg Gen: NAD at rest Heart: RRR Lung: Bilateral coarse rhonchi, decreased breath sounds at the bases Abd: soft, nontender Ext: no edema A/P (?) Partial SB obstruction s/p CHELE C2-T1/L3-S1/Laminectomy/L1-S1 Posterior Fusion/Cage Placement/Durotomy repair S/P Acute Respiratory Failure Acute Blood Loss Anemia CAD Atrial Fibrillation Acute on Chronic Diastolic Heart Failure Volume Overload improving Pneumonia UTI COPD Rheumatoid Arthritis HTN Hyperlipidemia h/o Prostate Ca - BD TX to QID and PRN - Incentive Spirometry - lasix - rate control - rehab/PT - DVT/GI prophylaxis - Enrique Hampton
[2019-01-14] MEDS: ASPIRIN COATED 81 MG TABLET.EC PO SCH (09:20)
[2019-01-14] MEDS: oxyCODONE HCL 5 MG TABLET PO PRN ×3 (09:20→22:37)
[2019-01-14] MEDS: METOPROLOL TARTRATE 25 MG TABLET (FP) NGT SCH (09:21)
[2019-01-14] MEDS: PANTOPRAZOLE 40 MG TABLET (FP) PO SCH (09:21)
[2019-01-14] MEDS: APIXABAN 5 MG TABLET PO SCH ×2 (09:21→21:13)
--- NOTE | 2019-01-14 16:15 | PN ---
Progress Note (short form) - Note Progress Note: s: no chest pain, sob palps dizzy Current Medications Acetaminophen (Tylenol -) 650 mg PO Q6H PRN PRN Reason: PAIN LEVEL 1-3 Last Admin: 01/13/19 18:08 Dose: 650 mg Acetaminophen (Tylenol -) 650 mg PO Q6H PRN PRN Reason: PAIN SCALE 7-10 Last Admin: 01/12/19 23:44 Dose: 650 mg Albuterol Sulfate (Ventolin 0.083% Nebulizer Soln -) 1 amp NEB Q4H PRN PRN Reason: SHORT OF BREATH/WHEEZING Albuterol/Ipratropium (Duoneb -) 1 amp NEB RQID [facility] Last Admin: 01/14/19 15:15 Dose: 1 amp Apixaban (Eliquis -) 5 mg PO BID [facility] Last Admin: 01/14/19 09:21 Dose: 5 mg Aspirin (Ecotrin -) 81 mg PO DAILY [facility] Last Admin: 01/14/19 09:20 Dose: 81 mg Docusate Sodium (Colace -) 100 mg PO TID [facility] Last Admin: 01/14/19 13:42 Dose: Not Given Gabapentin (Neurontin -) 300 mg PO TID [facility] Last Admin: 01/14/19 13:41 Dose: 300 mg Metoclopramide HCl (Reglan Injection -) 10 mg IVPB Q8H [facility] Last Admin: 01/14/19 13:41 Dose: Not Given Metoprolol Tartrate (Lopressor -) 25 mg NGT BID [facility] Last Admin: 01/14/19 09:21 Dose: 25 mg Ondansetron HCl (Zofran Injection) 4 mg IVPUSH Q6H PRN PRN Reason: NAUSEA Oxycodone HCl (Roxicodone -) 10 mg PO Q6H PRN PRN Reason: PAIN SCALE 7-10 Last Admin: 01/14/19 09:20 Dose: 10 mg Pancrelipase (Creon Dr 36,000 Units Capsule) 1 cap PO TIDCM [facility] Last Admin: 01/14/19 12:01 Dose: 1 cap Pantoprazole Sodium (Protonix -) 40 mg PO DAILY [facility] Last Admin: 01/14/19 09:21 Dose: 40 mg - Objective Vital Signs: Vital Signs Period Temp Pulse Resp BP Sys/Dyson Pulse Ox Last 24 Hr 97.3 F-98.1 F 80-90 19-230 103-139/55-74 100-100 Constitutional: Yes: Calm Cardiovascular: Yes: Pulse Irregular Respiratory: Yes: Other (scattered, no rales. No wheezing) Gastrointestinal: Yes: NT Edema: Yes Edema: LLE: 1+ (ankle), RLE: 1+ (ankle) Neurological: Yes: Alert, Oriented ...Motor Strength: WNL Problem List - Problems (1) Back pain Code(s): M54.9 - DORSALGIA, UNSPECIFIED (2) Paroxysmal atrial fibrillation Code(s): I48.0 - PAROXYSMAL ATRIAL FIBRILLATION (3) CAD (coronary artery disease) Code(s): I25.10 - ATHSCL HEART DISEASE OF [place] CORONARY ARTERY W/O ANG PCTRS Qualifiers: Coronary Disease-Associated Artery/Lesion type: [place] artery [place] vs. transplanted heart: [place] heart Associated angina: without angina Qualified Code(s): I25.10 - Atherosclerotic heart disease of [place] coronary artery without angina pectoris (4) Hx of heart artery stent Code(s): Z95.5 - PRESENCE OF CORONARY ANGIOPLASTY IMPLANT AND GRAFT (5) HTN (hypertension) Code(s): I10 - ESSENTIAL (PRIMARY) HYPERTENSION Qualifiers: Hypertension type: essential hypertension Qualified Code(s): I10 - Essential (primary) hypertension (6) Pulmonary hypertension Code(s): I27.20 - PULMONARY HYPERTENSION, UNSPECIFIED (7) Anticoagulation management encounter Code(s): Z51.81 - ENCOUNTER FOR THERAPEUTIC DRUG LEVEL MONITORING; Z79.01 - [facility] (CURRENT) USE OF ANTICOAGULANTS Assessment/Plan IMP: 1. Intractable neck pain, cervical and lumbar disc disease s/p Removal of hardware from C2-C7, laminectomy C2-T1 with posterior fusion of C2-T1. removal of hardware from L3-S1(retained screw at Right S1) laminectomy of L1/L2 and L2/L3 posterior fusion of L1 thru S1, repair of durotomy and cage placment L2-L3 2. PHTN, chronic 3. CAD s/p PCI 4. Permanent AF 5. Acute on chronic diastolic CHF 6. Moderate MR 7. Post op fever: cultures negative. 8. Anemia 9. Thrombocytosis REC: 1. WALKER: Pt not eating well due to abd pain, partial sbo, holding lasix for WALKER 2. Blood cultures remain negative; ID following. 3. H/H stable. 4. Transitioned back to oral AC. 6. Continue B-Augustine for rate control. 8. ASA has been resumed (prior coronary PCI) 9: GI following for abd pain.
--- NOTE | 2019-01-14 16:30 | PN ---
Progress Note (short form) - Note Progress Note: s: no chest pain, sob palps dizzy Current Medications Acetaminophen (Tylenol -) 650 mg PO Q6H PRN PRN Reason: PAIN LEVEL 1-3 Last Admin: 01/13/19 18:08 Dose: 650 mg Acetaminophen (Tylenol -) 650 mg PO Q6H PRN PRN Reason: PAIN SCALE 7-10 Last Admin: 01/12/19 23:44 Dose: 650 mg Albuterol Sulfate (Ventolin 0.083% Nebulizer Soln -) 1 amp NEB Q4H PRN PRN Reason: SHORT OF BREATH/WHEEZING Albuterol/Ipratropium (Duoneb -) 1 amp NEB RQID [facility] Last Admin: 01/14/19 15:15 Dose: 1 amp Apixaban (Eliquis -) 5 mg PO BID [facility] Last Admin: 01/14/19 09:21 Dose: 5 mg Aspirin (Ecotrin -) 81 mg PO DAILY [facility] Last Admin: 01/14/19 09:20 Dose: 81 mg Docusate Sodium (Colace -) 100 mg PO TID [facility] Last Admin: 01/14/19 13:42 Dose: Not Given Gabapentin (Neurontin -) 300 mg PO TID [facility] Last Admin: 01/14/19 13:41 Dose: 300 mg Metoclopramide HCl (Reglan Injection -) 10 mg IVPB Q8H [facility] Last Admin: 01/14/19 13:41 Dose: Not Given Metoprolol Tartrate (Lopressor -) 25 mg NGT BID [facility] Last Admin: 01/14/19 09:21 Dose: 25 mg Ondansetron HCl (Zofran Injection) 4 mg IVPUSH Q6H PRN PRN Reason: NAUSEA Oxycodone HCl (Roxicodone -) 10 mg PO Q6H PRN PRN Reason: PAIN SCALE 7-10 Last Admin: 01/14/19 09:20 Dose: 10 mg Pancrelipase (Creon Dr 36,000 Units Capsule) 1 cap PO TIDCM [facility] Last Admin: 01/14/19 12:01 Dose: 1 cap Pantoprazole Sodium (Protonix -) 40 mg PO DAILY [facility] Last Admin: 01/14/19 09:21 Dose: 40 mg - Objective Vital Signs: Vital Signs Period Temp Pulse Resp BP Sys/Dyson Pulse Ox Last 24 Hr 97.3 F-98.1 F 80-90 19-230 103-139/55-74 100-100 Constitutional: Yes: Calm Cardiovascular: Yes: Pulse Irregular Respiratory: Yes: Other (scattered, no rales. No wheezing) Gastrointestinal: Yes: NT Edema: Yes Edema: LLE: 1+ (ankle), RLE: 1+ (ankle) Neurological: Yes: Alert, Oriented ...Motor Strength: WNL Problem List - Problems (1) Back pain Code(s): M54.9 - DORSALGIA, UNSPECIFIED (2) Paroxysmal atrial fibrillation Code(s): I48.0 - PAROXYSMAL ATRIAL FIBRILLATION (3) CAD (coronary artery disease) Code(s): I25.10 - ATHSCL HEART DISEASE OF [place] CORONARY ARTERY W/O ANG PCTRS Qualifiers: Coronary Disease-Associated Artery/Lesion type: [place] artery [place] vs. transplanted heart: [place] heart Associated angina: without angina Qualified Code(s): I25.10 - Atherosclerotic heart disease of [place] coronary artery without angina pectoris (4) Hx of heart artery stent Code(s): Z95.5 - PRESENCE OF CORONARY ANGIOPLASTY IMPLANT AND GRAFT (5) HTN (hypertension) Code(s): I10 - ESSENTIAL (PRIMARY) HYPERTENSION Qualifiers: Hypertension type: essential hypertension Qualified Code(s): I10 - Essential (primary) hypertension (6) Pulmonary hypertension Code(s): I27.20 - PULMONARY HYPERTENSION, UNSPECIFIED (7) Anticoagulation management encounter Code(s): Z51.81 - ENCOUNTER FOR THERAPEUTIC DRUG LEVEL MONITORING; Z79.01 - LONG-TERM (CURRENT) USE OF ANTICOAGULANTS Assessment/Plan IMP: 1. Intractable neck pain, cervical and lumbar disc disease s/p Removal of hardware from C2-C7, laminectomy C2-T1 with posterior fusion of C2-T1. removal of hardware from L3-S1(retained screw at Right S1) laminectomy of L1/L2 and L2/L3 posterior fusion of L1 thru S1, repair of durotomy and cage placment L2-L3 2. PHTN, chronic 3. CAD s/p PCI 4. Permanent AF 5. Acute on chronic diastolic CHF 6. Moderate MR 7. Post op fever: cultures negative. 8. Anemia 9. Thrombocytosis REC: 1. WALKER: Pt not eating well due to abd pain, partial sbo, lasix held for WALKER 2. Blood cultures remain negative; ID following. 3. H/H stable. 4. Transitioned back to oral AC. 6. Continue B-Augustine for rate control. 8. ASA has been resumed (prior coronary PCI) 9: GI following for abd pain.
--- NOTE | 2019-01-14 17:29 | PN ---
Progress Note (short form) - Note Progress Note: diarrhea, denies abdominal pain Abdomen: soft non-teneder, no rebound A> Pseudo obstructiobn R> d/c Miralax and Relisotr restart Relistor 12mg every other day Problem List - Problems (1) Pseudo-obstruction of intestine Code(s): K59.8 - OTHER SPECIFIED FUNCTIONAL INTESTINAL DISORDERS
[2019-01-14] MEDS: ACETAMINOPHEN 325 MG TABLET (FP) PO PRN (21:25)
[2019-01-14] MEDS: METOPROLOL TARTRATE 25 MG TABLET (FP) PO SCH (22:11)
--- NOTE | 2019-01-14 22:36 | PN ---
Progress Note, Physician - Current Medication List Current Medications: Active Medications Acetaminophen (Tylenol -) 650 mg PO Q6H PRN PRN Reason: PAIN LEVEL 1-3 Last Admin: 01/14/19 21:25 Dose: 650 mg Acetaminophen (Tylenol -) 650 mg PO Q6H PRN PRN Reason: PAIN SCALE 7-10 Last Admin: 01/12/19 23:44 Dose: 650 mg Albuterol Sulfate (Ventolin 0.083% Nebulizer Soln -) 1 amp NEB Q4H PRN PRN Reason: SHORT OF BREATH/WHEEZING Albuterol/Ipratropium (Duoneb -) 1 amp NEB RQID [facility] Last Admin: 01/14/19 20:35 Dose: 1 amp Apixaban (Eliquis -) 5 mg PO BID [facility] Last Admin: 01/14/19 21:13 Dose: 5 mg Aspirin (Ecotrin -) 81 mg PO DAILY [facility] Last Admin: 01/14/19 09:20 Dose: 81 mg Docusate Sodium (Colace -) 100 mg PO TID [facility] Last Admin: 01/14/19 21:13 Dose: 100 mg Gabapentin (Neurontin -) 300 mg PO TID [facility] Last Admin: 01/14/19 21:17 Dose: 300 mg Metoclopramide HCl (Reglan Injection -) 10 mg IVPB Q8H [facility] Last Admin: 01/14/19 21:13 Dose: 10 mg Metoprolol Tartrate (Lopressor -) 25 mg PO BID [facility] Last Admin: 01/14/19 22:11 Dose: 25 mg Ondansetron HCl (Zofran Injection) 4 mg IVPUSH Q6H PRN PRN Reason: NAUSEA Oxycodone HCl (Roxicodone -) 10 mg PO Q6H PRN PRN Reason: PAIN SCALE 7-10 Last Admin: 01/14/19 16:32 Dose: 10 mg Pancrelipase (Creon Dr 36,000 Units Capsule) 1 cap PO TIDCM [facility] Last Admin: 01/14/19 16:34 Dose: 1 cap Pantoprazole Sodium (Protonix -) 40 mg PO DAILY [facility] Last Admin: 01/14/19 09:21 Dose: 40 mg - Objective Vital Signs: Vital Signs Temperature 98.9 F 01/14/19 16:59 Pulse Rate 86 01/14/19 16:59 Respiratory Rate 20 01/14/19 16:59 Blood Pressure 111/70 01/14/19 16:59 O2 Sat by Pulse Oximetry (%) 100 01/14/19 09:00 Labs: CBC, BMP 01/11/19 06:30 01/11/19 06:30 INR, PTT INR 1.55 (0.83-1.09) H 12/29/18 05:30 Problem List - Problems (1) Pneumonia Code(s): J18.9 - PNEUMONIA, UNSPECIFIED ORGANISM (2) Back pain Assessment/Plan: 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, laminectomy C2-T1 with posterior fusion of C-T1, removal of hardware from L3-S1 (retained screw at right S1) laminectomy of L1/L2 and L2/L3 posterior fusion of L1 through S1, repair of durotomy and cage placement L2-L3 Cont PT Encourage ambulation Pt still requiring oxycodone for pain Cont stool softners Code(s): M54.9 - DORSALGIA, UNSPECIFIED (3) Acute on chronic diastolic (congestive) heart failure Code(s): I50.33 - ACUTE ON CHRONIC DIASTOLIC (CONGESTIVE) HEART FAILURE (4) Afib Code(s): I48.91 - UNSPECIFIED ATRIAL FIBRILLATION (5) Anemia Code(s): D64.9 - ANEMIA, UNSPECIFIED (6) CAD (coronary artery disease) Code(s): I25.10 - ATHSCL HEART DISEASE OF [place] CORONARY ARTERY W/O ANG PCTRS Qualifiers: Coronary Disease-Associated Artery/Lesion type: [place] artery [place] vs. transplanted heart: [place] heart Associated angina: without angina Qualified Code(s): I25.10 - Atherosclerotic heart disease of [place] coronary artery without angina pectoris (7) GERD (gastroesophageal reflux disease) Code(s): K21.9 - GASTRO-ESOPHAGEAL REFLUX DISEASE WITHOUT ESOPHAGITIS (8) HLD (hyperlipidemia) Code(s): E78.5 - HYPERLIPIDEMIA, UNSPECIFIED (9) HTN (hypertension) Code(s): I10 - ESSENTIAL (PRIMARY) HYPERTENSION Qualifiers: Hypertension type: essential hypertension Qualified Code(s): I10 - Essential (primary) hypertension (10) Hx of heart artery stent Code(s): Z95.5 - PRESENCE OF CORONARY ANGIOPLASTY IMPLANT AND GRAFT (11) COPD (chronic obstructive pulmonary disease) Code(s): J44.9 - CHRONIC OBSTRUCTIVE PULMONARY DISEASE, UNSPECIFIED
[2019-01-14] MEDS ORDERED: ZOLPIDEM TARTRATE 5 MG TABLET PO PRN (23:47)
[2019-01-15] MEDS: oxyCODONE HCL 5 MG TABLET PO PRN ×3 (04:42→16:55)
[2019-01-15] MEDS: METOCLOPRAMIDE HCL INJECTION 10 MG/2 ML VIAL IVPB SCH ×2 (05:57→12:10)
[2019-01-15] MEDS: GABAPENTIN 300 MG CAPSULE (FP) PO SCH ×2 (05:58→13:26)
[2019-01-15] MEDS: DOCUSATE SODIUM 100 MG CAPSULE (FP) PO SCH ×2 (05:58→13:26)
[2019-01-15] MEDS: ALBUTEROL SO4 2.5/IPRATROPIUM 0.5 INH SOL 3 ML VIAL.NEB. NEB SCH ×3 (07:20→15:47)
[2019-01-15] MEDS ORDERED: PT OWN MED DRAWER 7, Y5N ONE (08:07)
--- NOTE | 2019-01-15 09:25 | PROC ---
Procedure Note Procedure: Xochitl posterior cervical and thoracic/lumbar removed. Incisions clean with small area of maceration (<1cm) no erythema, no drainage. Incisions re-dressed with 4x4 and tegaderm. Order placed for daily dressing changes. Please keep wound covered at this time. D/w attending Dr Krishnamurthy
[2019-01-15] MEDS: PANTOPRAZOLE 40 MG TABLET (FP) PO SCH (09:33)
[2019-01-15] MEDS: APIXABAN 5 MG TABLET PO SCH (09:33)
[2019-01-15] MEDS: LIPASE/PROTEASE/AMYLASE 36,000 UNIT CAPSULE PO SCH ×3 (09:33→16:55)
[2019-01-15] MEDS: METOPROLOL TARTRATE 25 MG TABLET (FP) PO SCH (09:33)
[2019-01-15] MEDS: ASPIRIN COATED 81 MG TABLET.EC PO SCH (09:33)
--- NOTE | 2019-01-15 13:02 | DS ---
Physical Examination Vital Signs: Vital Signs Temperature 97.6 F 01/15/19 06:00 Pulse Rate 80 01/15/19 06:00 Respiratory Rate 20 01/15/19 09:00 Blood Pressure 111/63 01/15/19 06:00 O2 Sat by Pulse Oximetry (%) 99 01/15/19 09:00 Constitutional: Yes: Well Nourished Cardiovascular: Yes: WNL, Regular Rate and Rhythm Respiratory: Yes: WNL, Regular, CTA Bilaterally Gastrointestinal: Yes: WNL, Normal Bowel Sounds, Soft Labs: CBC, BMP 01/11/19 06:30 01/11/19 06:30 Discharge Summary Reason For Visit: BACK PAIN Current Active Problems Afib (Acute) Anticoagulation management encounter (Acute) Back pain (Acute) Cervical myelopathy (Acute) Constipation (Acute) Dependency on pain medication (Acute) Paroxysmal atrial fibrillation (Acute) Partial small bowel obstruction (Acute) Pneumonia (Acute) Postoperative pain after spinal surgery (Acute) Pseudo-obstruction of intestine (Acute) Pulmonary hypertension (Acute) Respiratory failure (Acute) Severe pulmonary arterial systolic hypertension (Acute) Hospital Course: Pt is a 73 y/o male w/ multiple medical problems who underwent Cervical/lumbar surgery including s/p removal of hardware from C2-C7, laminectomy C2-T1 with posterior fusion of C-T1, removal of hardware from L3-S1, (retained screw at right S1) laminectomy of L1/L2 and L2/L3 posterior fusion of L1 through S1, repair of durotomy and cage placement L2-L3. During his hospitalization pt had ileus and partial SBO obstruction wc have resolved and pt was seen by GI and general surgery. Pt is also to be on flagyl for another 5 days for pneumonia. Condition: Good - Instructions Diet, Activity, Other Instructions: Diet: 2 gram sodium diet Post Operative Instructions Physical Activity Resume your normal everyday activity as tolerated. No heavy lifting or exercise until seen by your surgeon. You may walk unlimited amounts and climb stairs. You may resume driving the car when you feel safe and comfortable behind the wheel and you are no longer wearing your brace. Do not operate a vehicle while taking narcotic medication. Brace If you had back surgery, wear TLSO Brace whenever out of bed. May remove to sleep and shower. If you had neck surgery, wear surgical collar 23 hr/day. Remove to shower only. Wound Care Keep your incision clean, dry and covered at all times. Apply an occlusive dressing (Saran wrap or Tegaderm) when showering to avoid getting your incision wet. Do not submerge incision or apply ointments or creams. The sarah will be removed in the office in 10-14 days post-op. Diet There are no dietary restrictions. Eat healthy, high-fiber foods. Drink 6-8 glasses of liquid each day. This will assist in keeping your bowels regular. Pain Management You may take Tylenol or acetaminophen. Any pain prescription medication ordered should be taken as prescribed for moderate to severe pain. Call Dr Trevino for any of the following: Severe pain not relieved by medication Fever of 101 or higher Excessive bleeding or drainage on dressing Inability to urinate Any chest pain or shortness of breath, seek Emergency Care. Call the office to confirm a post-operative appointment for 2-3 weeks post-op Buzz Taylor MD [facility] [address] [place] [address]. [place] [address] Disposition: ASSISTED FACILITY - Home Medications Comprehensive Discharge Medication List: Ambulatory Orders Clopidogrel Bisulfate [Plavix -] 75 mg PO DAILY #30 tablet 01/12/18 Atorvastatin Ca [Lipitor] 40 mg PO HS 11/20/18 Folic Acid 1 mg PO DAILY 11/20/18 Linaclotide [Linzess] 145 mcg PO DAILY 11/20/18 Nortriptyline HCl [Pamelor -] 10 mg PO DAILY 11/20/18 Tamsulosin HCl [Flomax -] 0.4 mg PO DAILY 11/20/18 Apixaban [Eliquis -] 5 mg PO BID 60 Days #30 tablet 11/24/18 Acetaminophen [Tylenol .Regular Strength -] 650 mg PO Q6H PRN tablet 01/15/19 Acetaminophen [Tylenol .Regular Strength -] 650 mg PO Q6H PRN tablet 01/15/19 Albuterol 0.083% Nebulizer Elke [Ventolin 0.083% Nebulizer Soln -] 1 amp NEB Q4H PRN amp 01/15/19 Albuterol 2.5/Ipratropium 0.5 [Duoneb -] 1 amp NEB RQID amp 01/15/19 Aspirin Coated [Ecotrin -] 81 mg PO DAILY tablet.ec 01/15/19 Docusate Sodium [Colace -] 100 mg PO TID #100 capsule 01/15/19 Gabapentin [Neurontin -] 300 mg PO TID capsule 01/15/19 Lipase/Protease/Amylase [Xavi Ken 36,000 Units Capsule] 1 cap PO TIDCM capsule. 01/15/19 Metoprolol Tartrate [Lopressor -] 25 mg PO BID tablet 01/15/19 Pantoprazole Sodium [Protonix -] 40 mg PO DAILY tablet.ec 01/15/19 Polyethylene Glycol 3350 [Miralax 119 gm Btl -] 17 gm PO BID bottle 01/15/19 metroNIDAZOLE [Flagyl -] 250 mg PO TID tablet 01/15/19
[2019-01-15 16:58] VITALS: BP 97/59; PULSE 94; TEMP 97
== END 2019-01-15 18:34 | DRG 453 ==
LOC: JER 08:08 → JERBED 08:45 → J2W 22:52 → JICU 12-22 16:00 → J4W 12-30 20:53 → J8W 01-06 01:15
PROVIDERS: ADMIT Internal Medicine; ATTEND Internal Medicine
PROC: 0RG20AJ Fusion of 2 or more Cervical Vertebral Joints with Interbody Fusion Device, Posterior Approach, Anterior Column, Open Approach (ICD-10-PCS; principal; 2018-12-18)
PROC: 0RG20K1 Fusion of 2 or more Cervical Vertebral Joints with Nonautologous Tissue Substitute, Posterior Approach, Posterior Column, Open Approach (ICD-10-PCS; 2018-12-18)
PROC: 0RB30ZZ Excision of Cervical Vertebral Disc, Open Approach (ICD-10-PCS; 2018-12-18)
PROC: 0RP104Z Removal of Internal Fixation Device from Cervical Vertebral Joint, Open Approach (ICD-10-PCS; 2018-12-18)
PROC: 0RG40AJ Fusion of Cervicothoracic Vertebral Joint with Interbody Fusion Device, Posterior Approach, Anterior Column, Open Approach (ICD-10-PCS; 2018-12-18)
PROC: 0RG Upper Joints, Fusion (ICD-10-PCS; 2018-12-18)
PROC: 0JR707Z Replacement of Back Subcutaneous Tissue and Fascia with Autologous Tissue Substitute, Open Approach (ICD-10-PCS; 2018-12-18)
PROC: 0SP004Z Removal of Internal Fixation Device from Lumbar Vertebral Joint, Open Approach (ICD-10-PCS; 2018-12-18)
PROC: 0SG10AJ Fusion of 2 or more Lumbar Vertebral Joints with Interbody Fusion Device, Posterior Approach, Anterior Column, Open Approach (ICD-10-PCS; 2018-12-18)
PROC: 0SG00KJ Fusion of Lumbar Vertebral Joint with Nonautologous Tissue Substitute, Posterior Approach, Anterior Column, Open Approach (ICD-10-PCS; 2018-12-18)
PROC: 0SB20ZZ Excision of Lumbar Vertebral Disc, Open Approach (ICD-10-PCS; 2018-12-18)
PROC: 00QT0ZZ Repair Spinal Meninges, Open Approach (ICD-10-PCS; 2018-12-18)
PROC: 0SP304Z Removal of Internal Fixation Device from Lumbosacral Joint, Open Approach (ICD-10-PCS; 2018-12-18)
PROC: 0SG30AJ Fusion of Lumbosacral Joint with Interbody Fusion Device, Posterior Approach, Anterior Column, Open Approach (ICD-10-PCS; 2018-12-18)
PROC: 0SG30K1 Fusion of Lumbosacral Joint with Nonautologous Tissue Substitute, Posterior Approach, Posterior Column, Open Approach (ICD-10-PCS; 2018-12-18)
PROC: 00JV0ZZ Inspection of Spinal Cord, Open Approach (ICD-10-PCS; 2018-12-18)
PROC: 0JR707Z Replacement of Back Subcutaneous Tissue and Fascia with Autologous Tissue Substitute, Open Approach (ICD-10-PCS; 2018-12-18)
PROC: B01BZZZ Fluoroscopy of Spinal Cord (ICD-10-PCS; 2018-12-18)
PROC: B01BZZZ Fluoroscopy of Spinal Cord (ICD-10-PCS; 2018-12-18)
PROC: 30233N1 Transfusion of Nonautologous Red Blood Cells into Peripheral Vein, Percutaneous Approach (ICD-10-PCS; 2018-12-22)
DX: M47.12 Other spondylosis with myelopathy, cervical region (principal); J96.00 Acute respiratory failure, unspecified whether with hypoxia or hypercapnia; I50.33 Acute on chronic diastolic (congestive) heart failure; J18.9 Pneumonia, unspecified organism; D62 Acute posthemorrhagic anemia; I47.1 Supraventricular tachycardia; N39.0 Urinary tract infection, site not specified; M50.01 Cervical disc disorder with myelopathy, high cervical region; F19.20 Other psychoactive substance dependence, uncomplicated; K56.600 Partial intestinal obstruction, unspecified as to cause; M53.2X6 Spinal instabilities, lumbar region; M40.292 Other kyphosis, cervical region; M54.16 Radiculopathy, lumbar region; M54.12 Radiculopathy, cervical region; I11.0 Hypertensive heart disease with heart failure; I25.10 Atherosclerotic heart disease of native coronary artery without angina pectoris; J44.9 Chronic obstructive pulmonary disease, unspecified; E78.5 Hyperlipidemia, unspecified; I27.20 Pulmonary hypertension, unspecified; I27.21 Secondary pulmonary arterial hypertension; K59.03 Drug induced constipation; T40.2X5A Adverse effect of other opioids, initial encounter; D64.9 Anemia, unspecified; R50.82 Postprocedural fever; I95.9 Hypotension, unspecified; G89.18 Other acute postprocedural pain; R13.10 Dysphagia, unspecified; I34.0 Nonrheumatic mitral (valve) insufficiency; K21.9 Gastro-esophageal reflux disease without esophagitis; M06.9 Rheumatoid arthritis, unspecified; G62.89 Other specified polyneuropathies; I48.0 Paroxysmal atrial fibrillation; K59.8 Other specified functional intestinal disorders; M54.9 Dorsalgia, unspecified; M40.40 Postural lordosis, site unspecified; D47.3 Essential (hemorrhagic) thrombocythemia; D72.829 Elevated white blood cell count, unspecified; M10.9 Gout, unspecified; N40.0 Benign prostatic hyperplasia without lower urinary tract symptoms; Z85.46 Personal history of malignant neoplasm of prostate; Z95.5 Presence of coronary angioplasty implant and graft; Z79.01 Long term (current) use of anticoagulants; Z77.090 Contact with and (suspected) exposure to asbestos
CPT/HCPCS: 31500; 36415; 36430; 36511; 36600; 71045-TC-FY; 71046-TC-FY; 71260-TC; 72125-TC; 72131-TC; 72148-TC; 74019-TC-FY; 74021-TC-FY; 74176-TC; 76000-TC-FY; 80048; 80053; 80061; 81003; 81015; 82550; 82553; 82803; 83605; 83721; 83735; 84100; 84484; 85025; 85027; 85610; 85730; 86850; 86900; 86901; 86922; 87040; 87070; 87077; 87086; 87205; 87899; 88300-TC; 93005; 93010; 93306-TC; 94002; 94640; 94760; 97116-GP; 97162-GP; 99283-25; J0131; J1644; P9038; P9058

== ENCOUNTER 2019-02-05 21:48 | Emergency (ER) | payer OTHER, BC ==
[2019-02-05 22:08] VITALS: TEMP 97.7; BMI 25.4
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
[2019-02-06 00:46] LABS: BASO % 0.2 % (0-2.0); EOS % 3.4 % (0-4.5); HEMATOCRIT 25.4 % (35.4-49); HEMOGLOBIN 8.4 GM/dL (11.7-16.9); LYMPH % 10.1 % (8-40); MCH 31.2 pg (25.7-33.7); MCHC 32.9 g/dl (32.0-35.9); MEAN PLT VOLUME 7.2 fl (7.5-11.1); MONO % 7.5 % (3.8-10.2); NEUT % 78.8 % (42.8-82.8); PLATELET COUNT 433 K/MM3 (134-434); RBC 2.68 M/mm3 (4.00-5.60); RDW 17.8 % (11.9-15.9); WHITE BLOOD COUNT 11.9 K/mm3 (4.0-10.0)
--- NOTE | 2019-02-06 00:55 | PDOC ---
Documentation entered by Lillie Mark SCRIBE, acting as scribe for Chaz Nunez MD. Chaz Nunez MD: This documentation has been prepared by the Jas rodriguez Nirvannie, SCRIBE, under my direction and personally reviewed by me in its entirety. I confirm that the documentation accurately reflects all work, treatment, procedures, and medical decision making performed by me. Attending Attestation - Resident Resident Name: Patsy Linaresbharathisoni - ED Attending Attestation I have performed the following: I have examined & evaluated the patient, The case was reviewed & discussed with the resident, I agree w/resident's findings & plan - HPI HPI: 02/06/19 00:19 The patient is a 74 year old male, with a significant past medical history of hyperlipidemia, hypertension, COPD, CHF (on lasix), CAD, [place] s/p stent(x2), ileus , partial SBO obstruction, chronic cervical and back pain (s/p Cervical/lumbar surgery including s/p removal of hardware from C2-C7, laminectomy C2-T1 with posterior fusion of C-T1, removal of hardware from L3-S1, (retained screw at right S1) laminectomy of L1/L2 and L2/L3 posterior fusion of L1 through S1, repair of durotomy and cage placement L2-L3), and prostate ca (prostate removed 10 years ago), who presents to the emergency department via EMS from [facility] with, blt gluteal pain. Patient is currently on Augmentin for pneumonia. Allergies: Gentamicin, propofol, ketorolac Primary Care Physician: Dr. Arambula Neurosurgeon: Dr. Taylor - Physicial Exam PE: 02/06/19 00:52 Patient is awake and alert, well-nourished, in no distress Normocephalic, atraumatic Cervical collar in place CTA RRR TL brace in place Evaluation of the perineum reveals multiple excoriated, indurated and fluctuant lesions along the intergluteal fold which are most prominent on the right; states to decub ulcer is noted to the right hip; - Medical Decision Making 02/06/19 00:54 74-year-old male in cervical and TL brace status post laminectomy and spinal fusion presents with multiple excoriated, indurated and fluctuant lesions to the bilateral intergluteal folds. Several of the lesions are draining spontaneously. Will obtain CT with no contrast to evaluate for possible drainable collections. We'll consider topical wound care, by mouth Bactrim in addition to the current Augmentin for treatment of MRSA infection. Will reassess. Likely discharge given absence of systemic symptoms.
[2019-02-06 01:06] LABS: INR 2.17 (0.83-1.09); PROTHROMBIN TIME (PATIENT) 25.8 SEC (9.7-13.0)
[2019-02-06 01:18] LABS: ALBUMIN 2.7 g/dl (3.4-5.0); ALK PHOS 84 U/L (45-117); ANION GAP 6 MMOL/L (8-16); BILIRUBIN,TOTAL 0.4 mg/dL (0.2-1); BLOOD UREA NITROGEN 13 mg/dL (7-18); CALCIUM 8.8 mg/dL (8.5-10.1); CHLORIDE 98 mmol/L (98-107); CO2 31 mmol/L (21-32); CREATININE 0.6 mg/dL (0.55-1.3); GLUCOSE,RANDOM 105 mg/dL (74-106); POTASSIUM 4.2 mmol/L (3.5-5.1); SGOT/AST 15 U/L (15-37); SGPT/ALT 19 U/L (13-61); SODIUM 135 mmol/L (136-145); TOT PROT 5.7 g/dl (6.4-8.2)
[2019-02-06 01:36] LABS: ERYTHROCYTE SEDIMENTATION RATE 57 mm/hr (0-20)
[2019-02-06] MEDS ORDERED: oxyCODONE HCL 5 MG TABLET PO ONE (02:31)
[2019-02-06] MEDS ORDERED: oxyCODONE HCL 5 MG TABLET ONE (02:33)
[2019-02-06 03:13] VITALS: BP 121/75; PULSE 85
== END 2019-02-06 03:45 ==
LOC: JER 21:48
DX: S31.809A Unspecified open wound of unspecified buttock, initial encounter (principal); Z98.890 Other specified postprocedural states; Z95.5 Presence of coronary angioplasty implant and graft; Z85.46 Personal history of malignant neoplasm of prostate; I10 Essential (primary) hypertension; E78.00 Pure hypercholesterolemia, unspecified
CPT/HCPCS: 36415; 72192-TC; 80053; 85025; 85610; 85651; 87040; 99282-25

== ENCOUNTER 2019-02-12 16:30 | Emergency (ER) | payer OTHER, BC ==
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
[2019-02-12 17:03] VITALS: PULSE 75; TEMP 98.7; BMI 28.2
[2019-02-12 17:22] LABS: BASO % 0.6 % (0-2.0); EOS % 6.7 % (0-4.5); HEMATOCRIT 25.5 % (35.4-49); HEMOGLOBIN 8.2 GM/dL (11.7-16.9); LYMPH % 15.8 % (8-40); MCH 30.7 pg (25.7-33.7); MCHC 32.1 g/dl (32.0-35.9); MEAN CELL VOLUME 95.6 fl (80-96); MEAN PLT VOLUME 6.6 fl (7.5-11.1); MONO % 8.2 % (3.8-10.2); NEUT % 68.7 % (42.8-82.8); PLATELET COUNT 424 K/MM3 (134-434); RBC 2.67 M/mm3 (4.00-5.60); RDW 17.5 % (11.9-15.9); WHITE BLOOD COUNT 9.2 K/mm3 (4.0-10.0)
[2019-02-12 17:37] LABS: INR 1.74 (0.83-1.09); PROTHROMBIN TIME (PATIENT) 20.6 SEC (9.7-13.0)
[2019-02-12 17:39] LABS: ACTIVATED PTT 35.9 SECONDS (25.2-36.5)
[2019-02-12 17:50] LABS: ALBUMIN 2.8 g/dl (3.4-5.0); ALK PHOS 88 U/L (45-117); ANION GAP 6 MMOL/L (8-16); BILIRUBIN,TOTAL 0.2 mg/dL (0.2-1); BLOOD UREA NITROGEN 10 mg/dL (7-18); CALCIUM 8.9 mg/dL (8.5-10.1); CHLORIDE 101 mmol/L (98-107); CO2 29 mmol/L (21-32); CREATININE 0.8 mg/dL (0.55-1.3); GLUCOSE,RANDOM 107 mg/dL (74-106); POTASSIUM 4.7 mmol/L (3.5-5.1); SGOT/AST 38 U/L (15-37); SGPT/ALT 52 U/L (13-61); SODIUM 136 mmol/L (136-145); TOT PROT 5.7 g/dl (6.4-8.2)
--- NOTE | 2019-02-12 19:03 | PDOC ---
Documentation entered by Lillie Mark SCRIBE, acting as scribe for Bushra Day MD. Bushra Day MD: This documentation has been prepared by the Jas rodriguez Nirvannie, SCRIBE, under my direction and personally reviewed by me in its entirety. I confirm that the documentation accurately reflects all work, treatment, procedures, and medical decision making performed by me. Attending Attestation - Resident Resident Name: Shayne Osborne - ED Attending Attestation I have performed the following: I have examined & evaluated the patient, The case was reviewed & discussed with the resident, I agree w/resident's findings & plan - HPI HPI: 02/12/19 18:08 The patient is a 74 year old male, with a significant past medical history of hyperlipidemia, hypertension, COPD, CHF (on lasix), CAD, OH s/p stent(x2), ileus , partial SBO obstruction, chronic cervical and back pain (s/p Cervical/lumbar surgery including s/p removal of hardware from C2-C7, laminectomy C2-T1 with posterior fusion of C-T1, removal of hardware from L3-S1, (retained screw at right S1) laminectomy of L1/L2 and L2/L3 posterior fusion of L1 through S1, repair of durotomy and cage placement L2-L3), who presents to the emergency department via EMS from [facility] with, anemia. While in the ED, patient denies any formal complaints. Allergies: Gentamicin, propofol, ketorolac Primary Care Physician: Dr. Arambula Neurosurgeon: Dr. Taylor - Physicial Exam PE: 02/12/19 18:59 GENERAL: The patient is in no acute distress, answers questions appropriately ENT: Ears normal, nares patent, oropharynx clear without exudates. Moist mucous membranes. NECK: Normal range of motion, supple LUNGS: Breath sounds equal, clear to auscultation bilaterally. No wheezes, and no crackles. HEART:Regular rate and rhythm, normal S1 and S2 without murmur, rub or gallop. ABDOMEN: Soft, nontender, normoactive bowel sounds. EXTREMITIES: Normal range of motion, no edema. NEUROLOGICAL: Cranial nerves II through XII grossly intact. Normal speech. No focal neurological deficits. SKIN: stage 1 decubiti - Medical Decision Making 02/12/19 19:02 74 yo M sent for evaluation of anemia 02/12/19 19:03 Laboratory Tests 02/12/19 02/12/19 02/12/19 17:07 17:07 17:07 WBC 9.2 Hgb 8.2 L Hct 25.5 L Plt Count 424 INR 1.74 H BUN 10 Creatinine 0.8 Random Glucose 107 H
--- NOTE | 2019-02-12 19:36 | PDOC ---
*Physical Exam - Vital Signs Last Vital Signs Temp Pulse Resp BP Pulse Ox 98.7 F 75 17 99/53 L 99 02/12/19 16:57 02/12/19 16:57 02/12/19 16:57 02/12/19 16:57 02/12/19 16:57 Vital Signs - Vital Signs #1 Blood Pressure: 110/76 MAP: 87 ED Treatment Course - LABORATORY CBC & Chemistry Diagram: 02/12/19 17:07 02/12/19 17:07 - ADDITIONAL ORDERS Additional order review: Laboratory Results 02/12/19 02/12/19 02/12/19 17:07 17:07 17:07 PT with INR INR PTT (Actin FS) Sodium 136 Potassium 4.7 Chloride 101 Carbon Dioxide 29 Anion Gap 6 L BUN 10 Creatinine 0.8 Creat Clearance w eGFR 94.50 Random Glucose 107 H Calcium 8.9 Ferritin 261.7 Total Bilirubin 0.2 AST 38 H ALT 52 Alkaline Phosphatase 88 Total Protein 5.7 L Albumin 2.8 L Blood Type O POSITIVE Antibody Screen Negative 02/12/19 17:07 PT with INR 20.60 H INR 1.74 H PTT (Actin FS) 35.9 Sodium Potassium Chloride Carbon Dioxide Anion Gap BUN Creatinine Creat Clearance w eGFR Random Glucose Calcium Ferritin Total Bilirubin AST ALT Alkaline Phosphatase Total Protein Albumin Blood Type Antibody Screen 02/12/19 17:07 RBC 2.67 L MCV 95.6 MCHC 32.1 RDW 17.5 H MPV 6.6 L Neutrophils % 68.7 Lymphocytes % 15.8 D Monocytes % 8.2 Eosinophils % 6.7 H D Basophils % 0.6 Medical Decision Making - Medical Decision Making Pt was signed out to me by resident Dr. Osborne, who explained the presentation, ED course, any pending results, and needed interventions. Pending results include stool guaic and admission. Pt is currently stable and is lying comfortably. 02/12/19 19:35 Spoke with Roman and hospitalist team. All agree that due to chronic low hemoglobin (baseline 8-9), pt can safely return to [facility]. Calling [facility] to give report. 02/12/19 20:05 Spoke with [facility] to give report. Nursing staff aware for transport. 02/12/19 20:10 *DC/Admit/Observation/Transfer Diagnosis at time of Disposition: Anemia Qualifiers: Anemia type: unspecified type Qualified Code(s): D64.9 - Anemia, unspecified - Discharge Dispostion Disposition: [facility] Condition at time of disposition: Stable Decision to Admit order: No Decision to Admit order Date/Time: Decision to Admit Order Category Date Time Status Decision to Admit to Hospital Routine Admission 02/12/19 19:32 Active - Referrals Referrals: Leonard Lester MD [Primary Care Provider] - - Patient Instructions Additional Instructions: You were seen in the ER today for low blood and low calcium. The results of your labs today were at your baseline. Please follow-up with your primary care doctor within 1-2 days to discuss your visit and make sure your symptoms have improved, as you may need repeat lab testing. Please return to the ER if you have any worsening pain, development of fevers or chills, loss of consciousness , blood in your stool/vomit/sputum, inability to tolerate food or fluids, or any other concerns. - Post Discharge Activity
[2019-02-12 20:11] VITALS: BP 110/76
[2019-02-14 04:08] LABS: SERUM IRON SATURATION 14 % (15-55); TOTAL IRON BINDING CAPACITY 164 ug/dL (250-450); UIBC 141 ug/dL (111-343)
== END 2019-02-12 23:29 ==
LOC: JER 16:30
DX: D64.9 Anemia, unspecified (principal); I25.10 Atherosclerotic heart disease of native coronary artery without angina pectoris; I11.0 Hypertensive heart disease with heart failure; Z95.5 Presence of coronary angioplasty implant and graft; I25.2 Old myocardial infarction; E78.5 Hyperlipidemia, unspecified; J44.9 Chronic obstructive pulmonary disease, unspecified; Z87.19 Personal history of other diseases of the digestive system; Z98.1 Arthrodesis status; Z85.46 Personal history of malignant neoplasm of prostate; Z90.79 Acquired absence of other genital organ(s)
CPT/HCPCS: 36415; 80053; 82272; 82728; 83540; 83550; 85025; 85610; 85730; 86850; 86900; 86901; 99283-25

== ENCOUNTER 2019-03-11 21:40 | Emergency (ER) | payer OTHER, BC | END 2019-03-12 02:48 | disposition E | LOC: JER 21:40 | PROC: 5A12012 Performance of Cardiac Output, Single, Manual (ICD-10-PCS; principal; 2019-03-11) | PROC: B246ZZZ Ultrasonography of Right and Left Heart (ICD-10-PCS; 2019-03-11) | DX: I46.9 Cardiac arrest, cause unspecified (principal); I25.10 Atherosclerotic heart disease of native coronary artery without angina pectoris; I11.0 Hypertensive heart disease with heart failure; I50.9 Heart failure, unspecified; Z95.5 Presence of coronary angioplasty implant and graft; I25.2 Old myocardial infarction; J44.9 Chronic obstructive pulmonary disease, unspecified; E78.5 Hyperlipidemia, unspecified; Z85.46 Personal history of malignant neoplasm of prostate; Z87.19 Personal history of other diseases of the digestive system; Z98.1 Arthrodesis status; Z87.01 Personal history of pneumonia (recurrent) ==